=== PATIENT | female | born 1980 | race Caucasian/White ===

== ENCOUNTER 2017-11-22 13:53 | Emergency (ER) | payer MEDICAID, SELFPAY ==
[2017-11-22 14:00] VITALS: BP 152/88; PULSE 98; RESP 20; TEMP 37.1; O2SAT 100; BMI 34.9
[2017-11-22 14:10] LABS: Apearance,Urine Clear (Clear); Color,Urine Yellow (Yellow); Glucose,Urine (UA) Negative (Negative); PH,Urine 5.5 (5.0-8.5); Protein,Urine Negative (Negative)
[2017-11-22 14:11] LABS: Bilirubin,Urine Negative (Negative); Blood, Urine Negative (Negative); Ketones,Urine Negative (Negative); UTC Leukocyte Esterase,Urine 3+ (Negative); UTC Nitrate,Urine Negative (Negative); Urobilinogen,Urine 0.2 EU/dl (0.2)
--- NOTE | 2017-11-22 14:31 | PC.NURSE ---
Spoke to patient regarding symptoms. Started w/ Hysterectomy on 10/24/17 at [place] due to heavy bleeding x 2 months. Since surgery, decreased urination. Urinating only 1-2x/day despite constantly feeling the urge to urinate and even then, urinating very little. Discussed this at FU appt 3 weeks ago. U/A normal per patient at that time and reports she was told to increase fluids, which she has. urine now clear w/o odor. However, 2 weeks ago started having abdominal pain and thick brown vaginal discharge with odor so much so I have to wear a pad . Constant RLQ achy pain around 6/10 w/ sharp stabbing pain RLQ with urination rating it a 10/10. Denies typical dysuria associated w/ UTI. This is severe and more in my abdomen when I pee . Reports straining now to urinate. Vagina itchy and red and is no sure if that is related to discharge or a rash. Boyfriend's ex girlfriend dx chlamydia 2 days ago and worried that could be the cause. No improvement despite increasing fluids and taking tylenol. Called OB. Out of office until 12/01. Denies fever, nausea, vomiting. Discussed [facility] postop guidelines. Pt willing to transfer to ER. Report given to Dr. Sexton, ER . No bed available but working on two discharges. Will notify me when bed becomes available.
--- NOTE | 2017-11-22 14:43 | CT_ITS ---
CT abdomen pelvis w con CLINICAL INDICATION: Abdominal pain with difficulty urinating ITS.REASON: ABD PAIN, S/P HYSTERECTOMY 10-24-17 ORDERING PHYSICIAN: Michelet Sexton MD PATIENT AGE: 37 years COMPARISON: 08/20/2017 TECHNIQUE: Axial images obtained with sagittal and coronal reformats. PROCEDURE: Oral Contrast: None IV Contrast: 75 mL [id number]. FINDINGS: No acute finding in the lung bases. The liver, spleen, adrenal glands, and pancreas are unremarkable. A calcific density is present along the posterior aspect of the body the pancreas nonspecific. Small hyperdensity is present in the body of the gallbladder posteriorly suggesting a small stone. May be confirmed with ultrasound if clinically warranted. Has been prior gastric bypass surgery. No intestinal obstruction or free air. No obstructing renal or ureteral calculi or hydronephrosis. There are few small lymph nodes in the retroperitoneum nonspecific and unchanged. Prior appendectomy and interval hysterectomy. There is some minimal stranding of the fat in the uterine bed consistent with postsurgical changes. No abscess, hematoma, or seroma evident No acute bony anomalies. No abdominal wall hematoma or hernia. IMPRESSION: 1. Possible cholelithiasis. 2. Interval hysterectomy with minimal postsurgical changes in the pelvis with no acute finding Lower thorax: No acute finding ABDOMEN: Liver: No masses or biliary dilatation. Gallbladder: Nondistended. No radio opaque stones. Pancreas: No masses or peripancreatic fluid collections. Spleen: Unremarkable. Adrenals: Unremarkable Kidneys/ureters: No masses. No renal calculi. No hydronephrosis. No perinephric fluid collections. No ureteral dilatation or obvious ureteral calculi. Stomach bowel: Nondistended. No obvious mass or thickening. Appendix: No evidence of appendicitis. PELVIS: Reproductive: Unremarkable Bladder: Nondistended. No obvious stones or masses. ABDOMEN & PELVIS: Peritoneum: No abnormal fluid collections. No obvious inflammatory changes. No free air. Lymph nodes: No enlarged lymph nodes apparent. Vasculature: No evidence of abdominal aortic aneurysm. No retroperitoneal hemorrhage evident. Bones: No acute fracture IMPRESSION: Negative, no acute intra-abdominal or pelvic pathology apparent
[2017-11-22 14:59] VITALS: BP 152/88; PULSE 98; RESP 20; TEMP 37.1; O2SAT 100; BMI 349418.6
[2017-11-22 15:29] LABS: Basophils % 0.4 % (0.1-2.0); Eosinophils # 0.4 K/mm3 (0.0-0.4); Eosinophils % 7.3 % (0.1-12.0); Hematocrit 36.2 % (37.0-47.0); Hemoglobin 11.5 g/dL (12.2-16.2); Lymphocytes # 1.5 K/mm3 (0.7-4.5); Lymphocytes % 25.6 K/mm3 (10-50); Mean Corpuscular HGB Conc 31.8 g/dL (31.8-35.4); Mean Corpuscular Hemoglobin 25.8 pg (27.0-31.2); Mean Corpuscular Volume 81.2 fl (81-99); Mean Platelet Volume 8.5 fl (7.4-10.4); Monocytes # 0.4 K/mm3 (0.1-1.0); Monocytes % 7.3 % (1.7-9.3); Neutrophils # 3.5 K/mm3 (1.8-7.8); Neutrophils % 59.4 % (37.0-80.0); Platelet Count 294 K/mm3 (142-424); Red Blood Count 4.47 M/mm3 (4.20-5.40); Red Cell Distribution Width 15.6 % (11.5-17.5); White Blood Count 5.9 K/mm3 (4.8-10.8)
[2017-11-22 15:44] LABS: Alanine Aminotransferase 24 U/L (12-78); Albumin Level 4.2 gm/dL (3.4-5.0); Albumin/Globulin Ratio 1.2 (1.1-1.8); Alkaline Phosphatase 82 U/L (46-116); Amylase 37 U/L (25-125); Anion Gap 10.6 mEq/L (5-15); Aspartate Amino Transferase 12 U/L (15-37); Bilirubin,Total 0.3 mg/dL (0.2-1.0); Blood Urea Nitrogen 9 mg/dL (7-18); Calcium 8.8 mg/dL (8.5-10.1); Carbon Dioxide 27 mmol/L (21.0-32.0); Chloride 107 mmol/L (98-107); Creatinine Clearance Estimated 160 mL/min (0-300); Creatinine,Serum 0.74 mg/dL (0.55-1.02); Estimated Glomerular Filt Rate 89 ml/min (>60); GFR (African American) 108 ML/MIN (>60); Globulin 3.4 gm/dl (1.3-3.2); Glucose 80 mg/dL (74-106); Lipase 117 u/L (73-393); Potassium 3.6 mmoL/L (3.5-5.1); Sodium 141 mmol/L (136-145); Total Protein,Serum 7.6 gm/dL (6.4-8.2)
--- NOTE | 2017-11-22 17:49 | HMH.EDABDPAI ---
ED Disposition Clinical Impression: Bladder spasms Disposition: Home, Self-Care Condition on Discharge: Good Instructions: DI for Acute Abdomen Additional Instructions: Please find attached a copy of the CT scan obtained today, drink plenty of fluids, follow-up with your pharmacy sales representative in [place] within the next 1-2 weeks. Referrals: Michael Campo MD [Primary Care Provider] - Time of Disposition: 17:50 - Critical Care Critical Care Time: No Attestation: On 11/22/17, the high probability of a clinically significant, sudden or life threatening deterioration of the following system(s) required my full and direct attention, intervention and personal management. The time I documented below is in addition to time spent performing reported procedures but includes the following listed in this critical care notation. Medical Decision Making - Medical Records Medical records reviewed: Yes: I reviewed the patient's medical records. Vital Signs: 11/22/17 14:00 11/22/17 14:59 11/22/17 18:07 Temperature 98.8 F 98.8 F 98.4 F Temperature Source Temporal Artery Scan Oral Pulse Rate 88 Pulse Rate [Brachial] 98 H 98 H Respiratory Rate 20 20 18 Blood Pressure 124/86 Blood Pressure [Left Arm] 152/88 152/88 Blood Pressure Mean [Left Arm] 109 109 Blood Pressure Source [Left Arm] Automatic Cuff Automatic Cuff Blood Pressure Position [Left Arm] Sitting Sitting 02 Sat by Pulse Oximetry 100 100 Oxygen Delivery Method Room Air Room Air - Lab Data Lab results reviewed: Yes: I reviewed the patient's lab results. Lab Results 11/22/17 14:09: Urine Color Yellow, Urine Appearance Clear, Urine pH 5.5, Ur Specific [place] 1.010, Urine Protein Negative, Urine Glucose (UA) Negative, Urine Ketones Negative, Urine Blood Negative, Urine Nitrate Negative, Urine Bilirubin Negative, Urine Urobilinogen 0.2, Ur Leukocyte Esterase 3+ A 11/22/17 15:05: WBC 5.9, RBC 4.47, Hgb 11.5 L, Hct 36.2 L, MCV 81.2, MCH 25.8 L, MCHC 31.8, RDW 15.6, Plt Count 294, MPV 8.5, Neut % (Auto) 59.4, Lymph % (Auto) 25.6, [place] % (Auto) 7.3, Eos % (Auto) 7.3, Baso % (Auto) 0.4, Neut # (Auto) 3.5, Lymph # (Auto) 1.5, [place] # (Auto) 0.4, Eos # (Auto) 0.4, Baso # (Auto) 0.0 11/22/17 15:05: Sodium 141, Potassium 3.6, Chloride 107, Carbon Dioxide 27, Anion Gap 10.6, BUN 9, Creatinine 0.74, Estimated Creat Clear 160, Estimated GFR 89, Est GFR ( Amer) 108, Glucose 80, Calcium 8.8, Total Bilirubin 0.3, AST 12 L, ALT 24, Alkaline Phosphatase 82, Total Protein 7.6, Albumin 4.2, Globulin 3.4 H, Albumin/Globulin Ratio 1.2, Amylase 37, Lipase 117 Result diagrams: 11/22/17 15:05 11/22/17 15:05 Orders (Tests/Meds): ED MEDICATIONS Discontinued Medications Generic Name Dose Route Start Last Admin Trade Name Freq PRN Reason Stop Dose Admin Lactated Ringer's 1,000 mls @ 999 mls/hr 11/22/17 14:30 Lactated Ringer's 1000 Ml Bag IV 11/22/17 15:30 .Q1H1M ERINN Iopamidol 75 ml 11/22/17 15:33 11/22/17 15:33 [id number]; 75ml Vial IV 11/22/17 15:34 75 ml ONCE ONE Administration Sodium Chloride 10 ml 11/22/17 15:33 11/22/17 15:33 Rad-Saline Flush 10ml Syringe IV 11/22/17 15:34 10 ml ONCE ONE Administration ORDERS Category Date Time Status CT abdomen/pelvis request [CT Request abd/pelvis] Exams 11/22/17 14:28 Ordered Routine - CT Data CT Scan: Abdomen, Pelvis Time Received: 17:[address] Reviewed: Yes: I have reviewed the patient's CT results Findings Narrative: s/p hystercetomy, + cholelithiasis - Amari Inquiry Pt receiving controlled substance: No - Reevaluation(s) Time: 17:45 Reevaluation #1: Patient is in no acute distress, advised her to increase her fluid intake, follow up with [employer] within a few days. She was able to void while in the ER, without any problems. Abdominal Pain HPI - General Chief Complaint: Abdominal Pain Stated Complaint: CANNOT URINATE Time Seen by Provider:
[2017-11-22 18:07] VITALS: BP 124/86; PULSE 88; RESP 18; TEMP 36.9; O2SAT 97
== END 2017-11-22 18:09 | disposition home or self-care (01) ==
LOC: UTC 14:49 → ER 14:50
PROVIDERS: Nurse Practitioner Family; Emergency Provider Emergency Medicine; Family Provider Internal Medicine Adolescent Medicine; PCP Internal Medicine Adolescent Medicine
DX: N32.89 Other specified disorders of bladder (principal); Z90.710 Acquired absence of both cervix and uterus
CPT/HCPCS: 74177; 80053; 81003; 82150; 83690; 85025; 87086; 99284; Q9967

== ENCOUNTER 2017-12-26 15:59 | Emergency (ER) | payer MEDICAID, SELFPAY ==
[2017-12-26 16:12] VITALS: BP 110/64; PULSE 97; RESP 20; TEMP 36.9; O2SAT 99; BMI 34.9
--- NOTE | 2017-12-26 16:28 | PC.NURSE ---
Discussed HPI. Severe headache behind left eye/left temporal. Denies hx of headaches. I have never had a headache like this before . Currently 05/15. throbbing. Started yesterday morning. not improved with tylenol excedrin or tylenol sinus. Worse today. Took a nap earlier and woke up in more severe pain. That is why I am here. i can't take this pain any longer . Photosensitive without nausea. Trouble seeing w/ left eye. Visual acuity here in clinic 20/20 on right and bilateral eyes but 20/30 left eye. Denies weakness of confusion. No recent cold/flu/allergy symptoms. Denies fever, aches, chills. Reviewed possible differentials and [facility] guidelines with patient. patient and spouse agreeable to transfer to ER. Report called to Carlota, house painter helper helping in ER. Room 7 available.
[2017-12-26 16:38] VITALS: BP 110/64; PULSE 96; RESP 16; TEMP 36.9; O2SAT 99; BMI 33.9
--- NOTE | 2017-12-26 17:13 | HMH.EDGENADL ---
ED Disposition Clinical Impression: Sinusitis Qualifiers: Sinusitis location: unspecified location Chronicity: acute Recurrence: not specified as recurrent Qualified Code(s): J01.90 - Acute sinusitis, unspecified Headache Qualifiers: Headache type: unspecified Headache chronicity pattern: acute headache Intractability: intractable Qualified Code(s): R51 - Headache Disposition: Home, Self-Care Condition on Discharge: Good Instructions: DI for Sinus Headache, DI for Sinusitis, DI for Headache Additional Instructions: Additional instructions for HEADACHE: See your physician as soon as possible for further evaluation. Return immediately if worsening headache, vomiting, problems with vision or speech, fever, numbness or weakness of the extremities, neck pain or stiffness. Additional instructions for CONTROLLED SUBSTANCES: You have been prescribed a medication that is a controlled substance. Controlled substances include pain medications known as opiates and sedative nerve medications known as benzodiazepines. Some common opiates include: Codeine (such as Tylenol #3) Hydrocodone (Vicodin, Lortab, Lorcet, Kennedy) Oxycodone (Percocet, Percodan, Oxycodone, Oxy IR) Some common benzodiazepines include: Diazepam (Valium) Lorazepam (Ativan) Alprazolam (Xanax) Clonazepam (Klonopin) Oxazepam (Serax) All of these controlled substances are highly addictive and frequently abused. Misuse can and frequently does lead to addiction as well as overdose and . Medication should be stored in a locked cabinet or other secure storage unit. Do not store the medication in a motor vehicle. Short term supplies, 3 days or less, are prescribed because of the highly addictive nature of the medication. Any of the controlled substance medication NOT taken should be disposed of properly and NOT SAVED. The recommended method of disposing of unused medications is: Place the medicines in a sealable plastic bag. If the medicine is a solid, crush it or add water to dissolve it. Add something undesirable (cat litter, coffee grounds, etc.) Dispose of sealed bag in household trash Do not flush or pour unused medicines down a sink or drain. Controlled substances should not be shared, given away or sold. Because of the addictive nature and frequent abuse, these medications are sometimes stolen. These medications should be kept in a safe place where they cannot be stolen. Do not keep them in your car or purse. Lost or stolen prescriptions for controlled substances WILL NOT BE REFILLED in this emergency department, regardless of whether a police report was filed. Prescriptions: Butalbit/Acetamin/Caff/Codeine [Fioricet w/Codeine Capsule] 1 each PO Q4HP PRN #10 cap PRN Reason: Headache Azithromycin [Zithromax 250mg tab] 250 mg PO DAILY #4 tab Referrals: Az Mills MD [Primary Care Provider] - - Critical Care Critical Care Time: No Attestation: On 12/26/17, the high probability of a clinically significant, sudden or life threatening deterioration of the following system(s) required my full and direct attention, intervention and personal management. The time I documented below is in addition to time spent performing reported procedures but includes the following listed in this critical care notation. Medical Decision Making Vital Signs: 12/26/17 16:12 12/26/17 16:38 Temperature 98.4 F 98.4 F Temperature Source Temporal Artery Scan Oral Pulse Rate [Right Brachial] 97 H 96 H Respiratory Rate 20 16 Blood Pressure [Left Arm] 110/64 Blood Pressure [Right Arm] 110/64 Blood Pressure Mean [Left Arm] 79 Blood Pressure Mean [Right Arm] 79 Blood Pressure Source [Left Arm] Automatic Cuff Blood Pressure Source [Right Arm] Automatic Cuff Blood Pressure Position [Right Arm] Sitting 02 Sat by Pulse Oximetry 99 99 Oxygen Delivery Method Room Air Room Air Orders (Tests/Meds): ED MEDICATIONS Discontinued Medications Ge
--- NOTE | 2017-12-26 17:21 | CT_ITS ---
CT head/brain wo con Ordering Physician: Vicente Cruz MD Patient Age: 37 years: Female HISTORY: ITS.REASON: headache, fell and hit head monday Headache 3 days hit on head with shelf last week TECHNIQUE: Routine axial CT head without contrast. Brain and bone windows performed and submitted to PACS. COMPARISON :None FINDINGS Brain within normal limits with no acute findings. No hemorrhage. No mass. No subdural collection. The ventricles appear normal. Basal cisterns are clear unremarkable. The hayden and white matter interface and patterns satisfactory. The posterior fossa unremarkable. CT bone Windows do reveal moderate mucosal thickening most evident at the inferior sphenoid sinus with mild areas of mucosal thickening and partial opacification of ethmoid air cells on left. Right ethmoid air cells clear frontal sinuses clear. The maxillary sinuses and inferior ethmoid air cells are not included. Maxillary sinuses appear clear on the reconciler view. Mastoid air cells are well-developed and clear. Middle ear unremarkable. Skull intact.. .====== IMPRESSION: ======== 1. No acute intracranial findings Brain within normal limits. 2. Incidental note Moderate mucosal thickening inferior left sphenoid sinus. Mild mucosal thickening left ethmoid air cells.. Likely mild chronic changes. No air-fluid levels
[2017-12-26 20:33] VITALS: BP 124/69; PULSE 81; RESP 15; TEMP 37.2; O2SAT 97
== END 2017-12-26 20:34 | disposition home or self-care (01) ==
LOC: UTC 16:05 → ER 16:37
PROVIDERS: Emergency Provider Emergency Medicine; Family Provider Internal Medicine Adolescent Medicine; PCP Emergency Medicine
DX: J01.90 Acute sinusitis, unspecified (principal); Z88.0 Allergy status to penicillin; Z88.1 Allergy status to other antibiotic agents
CPT/HCPCS: 70450; 96365; 96367; 96374; 96375; 99283; J0456

== ENCOUNTER 2018-11-07 16:04 | Observation (INO) ==
[2018-11-07 17:15] LABS: Albumin Level 3.7 gm/dL (3.4-5.0); Albumin/Globulin Ratio 1.1 (1.1-1.8); Anion Gap 13.6 mEq/L (5-15); Bilirubin,Total 0.6 mg/dL (0.2-1.0); Calcium 8.6 mg/dL (8.5-10.1); Globulin 3.3 gm/dl (1.3-3.2); Potassium 3.6 mmoL/L (3.5-5.1)
[2018-11-07 17:19] LABS: Basophils % 0.4 % (0.1-2.0); Eosinophils # 0.3 K/mm3 (0.0-0.4); Eosinophils % 4.1 % (0.1-12.0); Hematocrit 33.9 % (37.0-47.0); Hemoglobin 10.4 g/dL (12.2-16.2); Lymphocytes % 33.5 % (10-50); Mean Corpuscular HGB Conc 30.8 g/dL (31.8-35.4); Mean Corpuscular Hemoglobin 23.8 pg (27.0-31.2); Mean Corpuscular Volume 77.3 fl (81-99); Mean Platelet Volume 7.5 fl (7.4-10.4); Monocytes # 0.4 K/mm3 (0.1-1.0); Monocytes % 6.1 % (1.7-9.3); Neutrophils # 3.4 K/mm3 (1.8-7.8); Neutrophils % 55.9 % (37.0-80.0); Platelet Count 288 K/mm3 (142-424); Red Blood Count 4.38 M/mm3 (4.20-5.40); Red Cell Distribution Width 15.3 % (11.5-17.5); White Blood Count 6.1 K/mm3 (4.8-10.8)
--- NOTE | 2018-11-07 18:56 | Emergency Department Note ---
ED Disposition Clinical Impression: Acute gastroenteritis, Dehydration Disposition: Still a Patient Condition on Discharge: Fair Referrals: Az Mills MD [Primary Care Provider] - - Critical Care Critical Care Time: No Attestation: On 11/07/18, the high probability of a clinically significant, sudden or life threatening deterioration of the following system(s) required my full and direct attention, intervention and personal management. The time I documented below is in addition to time spent performing reported procedures but includes the following listed in this critical care notation. Medical Decision Making - Amari Inquiry Pt receiving controlled substance: No Vital Signs: 11/07/18 16:23 11/07/18 16:48 11/07/18 18:04 Temperature 98.2 F 98.4 F Temperature Source Oral Oral Pulse Rate [Left Radial] 99 H 94 H 64 Respiratory Rate 18 14 18 Blood Pressure [Right Arm] 121/77 128/82 120/78 Blood Pressure Mean [Right Arm] 91 97 92 Blood Pressure Source [Right Arm] Automatic Cuff Automatic Cuff Blood Pressure Position [Right Arm] Sitting Sitting Sitting 02 Sat by Pulse Oximetry 100 94 L 100 Oxygen Delivery Method Room Air Room Air Room Air - Lab Data Lab Results 11/07/18 16:50: WBC 6.1, RBC 4.38, Hgb 10.4 L, Hct 33.9 L, MCV 77.3 L, MCH 23.8 L, MCHC 30.8 L, RDW 15.3, Plt Count 288, MPV 7.5, Neut % (Auto) 55.9, Lymph % (Auto) 33.5, [place] % (Auto) 6.1, Eos % (Auto) 4.1, Baso % (Auto) 0.4, Neut # (Auto) 3.4, Lymph # (Auto) 2.0, [place] # (Auto) 0.4, Eos # (Auto) 0.3, Baso # (Auto) 0.0 11/07/18 16:50: Sodium 142, Potassium 3.6, Chloride 106, Carbon Dioxide 26, Anion Gap 13.6, BUN 7, Creatinine 0.67, Estimated Creat Clear 175, Estimated GFR 100, Est GFR ( Amer) 121, Glucose 89, Calcium 8.6, Total Bilirubin 0.6, AST 12 L, ALT 20, Alkaline Phosphatase 80, Total Protein 7.0, Albumin 3.7, Globulin 3.3 H, Albumin/Globulin Ratio 1.1 Result diagrams: 11/07/18 16:50 11/07/18 16:50 Orders (Tests/Meds): ED MEDICATIONS Generic Name Dose Route Start Last Admin Trade Name Freq PRN Reason Stop Dose Admin Sodium Chloride 1,000 mls @ 999 mls/hr 11/07/18 17:00 11/07/18 17:20 Sod Chlor 0.9% 1000ml Bag IV 11/07/18 18:00 999 mls/hr .Q1H1M ERINN Administration Discontinued Medications Generic Name Dose Route Start Last Admin Trade Name Freq PRN Reason Stop Dose Admin Ondansetron HCl 4 mg 11/07/18 16:56 11/07/18 17:20 Zofran 4mg/2ml Vial IV 11/07/18 16:57 4 mg ONCE ONE Administration ORDERS Category Date Time Status Hepatitis Panel (4) Routine Lab 11/07/18 18:55 Ordered Medical Decision Narrative: Patient states she does not feel any better after fluids and medication except nausea slightly better. States she does not feel well enough to go home. I will admit for further hydration and symptomatic treatment. Diarrhea profile will be ordered. No findings to suggest hepatitis at this time. General Adult HPI - General Chief complaint: Nausea/Vomiting/Diarrhea Stated complaint: Poss Hep A Time Seen by Provider: 11/07/18 18:54 Mode of Arrival: Ambulatory Limitations: No Limitations Description of Symptoms (Recalled from ER Triage Doc. by RN): PT REPORTS SHE HAS BEEN "SICK" FOR 1 WEEK. HAS HAD N/V/D FOR THE LAST 72 HOURS. BODY ACHES. REPORTS BOYFRIEND WAS DX WITH HEPATITIS MONDAY. WANTS TO BE CHECKED FOR HEP A. - History of Present Illness HPI narrative: States she feels like she is going to because she has been so sick for 1 week. Her whole body hurts. She has profuse vomiting and diarrhea. Denies fever. Generalized abdominal cramping. She is concerned because her boyfriend was here on Monday and diagnosed with acute hepatitis, likely hepatitis A. He is still awaiting hepatitis panel results. No known exposures otherwise. - Related Data Previous Rx's Medication Instructions Recorded Brompheniramine/Pseudoephed/Dm 10 ml PO QID PRN #240 ml 09/13/18 [Bromfed DM Cough Syrup 5mL] Allergies Allergy/AdvReac Type Severity Reaction Status Date / Time cefaclor [CEFACLOR] Allergy Unknown Verified 11/22/17 13:58 Penicillins [PENICILLINS] Allergy Unknown Verified 11/22/17 13:57 Cephalosporins Allergy Verified 12/26/17 16:18 [facility] History - Hepatitis A Screen Drug use history?: No High risk sexual behaviors?: No History of sexually transmitted infection?: No Currently employed?: No Childcare worker?: No Do you have indoor plumbing?: Yes Do you have electricity?: Yes Attestation statement:: This patient has been screened for Hepatitis A risk factors. I have reviewed the patient's past medical history: Yes Medical History: Denies:: Cancer, Diabetes Mellitus Type 1, Diabetes Mellitus Type 2, Hypertension, MRSA Laterality Cases: Bilateral: Tonsillectomy Other Surgeries: Yes: Hysterectomy-Total Amputation: No Fractures: No - Social History Smoking Status: Former smoker Alcohol Intake: never Substance Use Type: denies use - Psychiatric History Expresses thoughts of harming self/others: None Suicide Plan Description: No Plan ROS Obtained: Yes All systems reviewed & no additional complaints - Constitutional Constitutional: Reports body ache, Reports chills, Reports fatigue, Reports fever(s) - Gastrointestinal Gastrointestingal: Reports: abdominal pain, diarrhea, nausea, vomiting Physical Exam - General General appearance: alert, in no apparent distress - Head Head exam: atraumatic, normocephalic - Eye Eye exam: Present: normal appearance, PERRL, EOMI - ENT ENT exam: Present: mucous membranes dry, other (Lips dry) - Neck Neck exam: Present: normal inspection, trachea midline - Chest Chest inspection: Present: normal inspection, symmetric chest wall rise - Respiratory Respiratory exam: Present: normal lung sounds bilaterally. Absent: respiratory distress - Cardiovascular Cardiovascular exam: Present: regular rate, normal rhythm, normal heart sounds - Abdominal Exam Abdominal exam: Present: soft, tenderness. Absent: distention, guarding, rebound, rigidity Abdominal tenderness: Present: diffuse, mild - Extremities Exam Extremities exam: Present: normal inspection, full ROM - Neurological Exam Neurological exam: Present: alert, oriented X3 - Psychiatric Psychiatric exam: Present: normal affect, normal mood - Skin Skin exam: Present: warm, dry
--- NOTE | 2018-11-08 08:09 | Pharmacy Consult Notes ---
[facility] Pharmacy VTE Monitoring - Patient Demographics Admission date: 11/07/18 Report Date: 11/08/18 Time: 08:09 Allergies/Adverse Reactions: Patient Allergies cefaclor [CEFACLOR] Allergy (Unknown, Verified 11/22/17 13:58) Penicillins [PENICILLINS] Allergy (Unknown, Verified 11/22/17 13:57) Cephalosporins Allergy (Verified 12/26/17 16:18) Height: 1.65 m Weight: 100.329 kg Patient Problems: Current Active Problems Acute gastroenteritis (Acute) Dehydration (Acute) - VTE Risk Labs: VTE Related Lab Results Hgb 10.4 g/dL (12.2-16.2) L 11/07/18 16:50 Hct 33.9 % (37.0-47.0) L 11/07/18 16:50 Plt Count 288 K/mm3 (142-424) 11/07/18 16:50 BUN 7 mg/dL (7-18) 11/07/18 16:50 Creatinine 0.67 mg/dL (0.55-1.02) 11/07/18 16:50 Estimated Creat Clear 175 mL/min (50-200) 11/07/18 16:50 Was VTE Risk Assessment Performed: Yes VTE Score: 4 VTE Risk Level: Low Risk - Prophylaxis VTE Prophylaxis Ordered?: Yes Types of VTE Prophylaxis: TEDS Knee High Location of Applied Device: Bilateral Lower Extremeties - VTE Diagnosis Confirmed Treatment or plan recommended: Continue Current Treatment
[2018-11-08 09:30] LABS: Eosinophils # 0.2 K/mm3 (0.0-0.4); Monocytes # 0.3 K/mm3 (0.1-1.0); Neutrophils # 2.3 K/mm3 (1.8-7.8); Neutrophils % 52.6 % (37.0-80.0)
[2018-11-08 09:35] LABS: Basophils % 0.4 % (0.1-2.0); Eosinophils % 5.1 % (0.1-12.0); Hematocrit 29.6 % (37.0-47.0); Lymphocytes # 1.5 K/mm3 (0.7-4.5); Lymphocytes % 35.6 % (10-50); Mean Corpuscular HGB Conc 30.7 g/dL (31.8-35.4); Mean Corpuscular Volume 78.3 fl (81-99); Mean Platelet Volume 9.1 fl (7.4-10.4); Monocytes % 6.2 % (1.7-9.3); Platelet Count 213 K/mm3 (142-424); Red Blood Count 3.78 M/mm3 (4.20-5.40); Red Cell Distribution Width 15.3 % (11.5-17.5); White Blood Count 4.3 K/mm3 (4.8-10.8)
[2018-11-08 09:37] LABS: Hemoglobin 9.1 g/dL (12.2-16.2)
[2018-11-08 09:53] LABS: Albumin Level 2.9 gm/dL (3.4-5.0); Anion Gap 11.5 mEq/L (5-15); Bilirubin,Total 0.4 mg/dL (0.2-1.0); Calcium 7.8 mg/dL (8.5-10.1); Globulin 2.9 gm/dl (1.3-3.2); Potassium 3.5 mmoL/L (3.5-5.1); Total Protein,Serum 5.8 gm/dL (6.4-8.2)
--- NOTE | 2018-11-08 12:21 | H&P/Discharge Summary ---
General - General Admission date:: 11/07/18 Discharge date: 11/08/18 *Admission Date: 11/07/18 *Chief complaint: n/v/d *History of present illness: 38 yr old female presents to ed with c/o n/v/d x 1 week. Denies fever. Generalized abdominal cramping. Pt sttes no stool since admit. She is concerned because her boyfriend was here on Monday and diagnosed with acute hepatitis, likely hepatitis A. He is still awaiting hepatitis panel results. No known exposures otherwise.Pt admitted for iv fluids and symptom mangement. [facility] History I have reviewed the patient's past medical history: Yes Medical History: Reports:: MRSA Denies:: Cancer, Diabetes Mellitus Type 1, Diabetes Mellitus Type 2, Hypertension Laterality Cases: Bilateral: Tonsillectomy Other Surgeries: Yes: Appendectomy, Bariatric Surgery, Hysterectomy-Total Amputation: No Fractures: Yes (Tibia) - *Social History Educational Level: Completed GED/General Educational Development Smoking Status: Former smoker Alcohol Intake: current Alcohol Intake Frequency:: holidays/special occasions only Substance Use Type: denies use Occupational Status: employed Housing: house Household Members: significant other - Psychiatric History Expresses thoughts of harming self/others: None Suicide Plan Description: No Plan *Family Hx:: Coronary Artery Disease, Diabetes Review of Systems - Review of Systems Review of systems:: pertinent systems reviewed and negative unless documented below - Constitutional Reports body ache(s), Denies fever(s) - Eyes Denies change in vision - ENT Denies change in voice - *Cardiovascular Denies shortness of breath - *Respiratory Denies chest congestion - *Gastrointestinal Reports cramping, Reports loose stools, Reports nausea, Reports vomiting - *Genitourinary Denies abnormal periods - *Musculoskeletal Denies decreased muscle mass - Integumentary/Breasts Denies rash - *Neurologic Denies abnormal movements - Psychiatric Denies anxiety - Endocrine Denies flushing - Hematologic/Lymphatic Denies enlarged lymph nodes - Allergic/Immunologic Denies itchy eyes Exam Vital signs and Labs for Last 24 Hours: Temp Pulse Resp BP Pulse Ox 98.9 F 80 16 121/78 99 11/08/18 08:00 11/08/18 08:00 11/08/18 08:00 11/08/18 08:00 11/08/18 08:00 Laboratory Results - last 24 hr 11/07/18 16:50: WBC 6.1, RBC 4.38, Hgb 10.4 L, Hct 33.9 L, MCV 77.3 L, MCH 23.8 L, MCHC 30.8 L, RDW 15.3, Plt Count 288, MPV 7.5, Neut % (Auto) 55.9, Lymph % (Auto) 33.5, Harris % (Auto) 6.1, Eos % (Auto) 4.1, Baso % (Auto) 0.4, Neut # (Auto) 3.4, Lymph # (Auto) 2.0, Harris # (Auto) 0.4, Eos # (Auto) 0.3, Baso # (Auto) 0.0 11/07/18 16:50: Sodium 142, Potassium 3.6, Chloride 106, Carbon Dioxide 26, Anion Gap 13.6, BUN 7, Creatinine 0.67, Estimated Creat Clear 175, Estimated GFR 100, Est GFR ( Amer) 121, Glucose 89, Calcium 8.6, Total Bilirubin 0.6, AST 12 L, ALT 20, Alkaline Phosphatase 80, Total Protein 7.0, Albumin 3.7, Globulin 3.3 H, Albumin/Globulin Ratio 1.1 11/08/18 09:23: WBC 4.3 L D, RBC 3.78 L, Hgb 9.1 L D, Hct 29.6 L, MCV 78.3 L, MCH 24.0 L, MCHC 30.7 L, RDW 15.3, Plt Count 213 D, MPV 9.1, Neut % (Auto) 52.6, Lymph % (Auto) 35.6, Harris % (Auto) 6.2, Eos % (Auto) 5.1, Baso % (Auto) 0.4, Neut # (Auto) 2.3, Lymph # (Auto) 1.5, Harris # (Auto) 0.3, Eos # (Auto) 0.2, Baso # (Auto) 0.0 11/08/18 09:23: Sodium 142, Potassium 3.5, Chloride 111 H, Carbon Dioxide 23, Anion Gap 11.5, BUN 7, Creatinine 0.66, Estimated Creat Clear 187, Estimated GFR 101, Est GFR ( Amer) 123, Glucose 104, Calcium 7.8 L, Total Bilirubin 0.4, AST 13 L, ALT 17, Alkaline Phosphatase 63, Total Protein 5.8 L, Albumin 2.9 L D, Globulin 2.9, Albumin/Globulin Ratio 1.0 L 11/08/18 09:51: Stl Aeromonas (PCR) Not detected, Stl C. cayetanensis PCR Not detected, Stool Rotavirus (PCR) Not detected, Stl Adenov F 40/41 PCR Not detected, Stool Astrovirus (PCR) Not detected, Stool Campylobacter PCR Not detected, Stl C.difficile Tox PCR Not detected, Stool Cryptosporidium PCR Not detected, Stl E.coli Shiga Tox PCR Not detected, Stool E coli O157 PCR Not detected, Stl Enterotoxigenic E PCR Not detected, Stool EPEC (PCR) Not detected, Stool EAEC (PCR) Not detected, Stl E. histolytica PCR Not detected, Stool Giardia Lamblia PCR Not detected, Stool Salmonella PCR Not detected, Stool Sapovirus (PCR) Not detected, Stl P. shigelloides PCR Not detected, Stl Shigella/EIEC PCR Not detected, St Y.enterocolitica PCR Not detected, Stool Vibrio (PCR) Not detected, Stl Vibrio cholerae PCR Not detected, Stl Norovirus GI/GII PCR Detected A I & O for Last 24 hours: Intake & Output 11/06/18 11/07/18 11/08/18 11/09/18 11:59 11:59 11:59 11:59 Intake Total 2447 / 2447 Output Total 540 / 540 Balance 1907 / 1907 Weight 221 lb 3 oz - *Routine HEENT Exam Head: Present: normocephalic Eye: Present: PERRL ENT: Present: mucous membranes moist - *Routine Neck Exam Present: supple. Absent: lymphadenopathy - *Routine Respiratory Exam Present: CTA bilaterally - *Routine Cardiovascular Exam Present: RRR - *Routine Abdominal Exam Present: soft, normoactive bowel sounds. Absent: tenderness, distended, rebound, firm - *Routine Extremities Exam Absent: cyanosis, clubbing, edema - *Routine Skin Exam Present: warm. Absent: rash - *Routine Neurological Exam Present: alert, oriented X3 Hospital Course Hospital Course: diarrehea panel pos for norovirus. dc home waiting hepatitis panel results increase fluids, zofran for nausea follow up in office next week Results Labs on day of discharge: Labs from last 24 hours 11/08/18 11/08/18 11/08/18 09:51 09:23 09:23 WBC 4.3 L D RBC 3.78 L Hgb 9.1 L D Hct 29.6 L MCV 78.3 L MCH 24.0 L MCHC 30.7 L RDW 15.3 Plt Count 213 D MPV 9.1 Neut % (Auto) 52.6 Lymph % (Auto) 35.6 Harris % (Auto) 6.2 Eos % (Auto) 5.1 Baso % (Auto) 0.4 Neut # (Auto) 2.3 Lymph # (Auto) 1.5 Harris # (Auto) 0.3 Eos # (Auto) 0.2 Baso # (Auto) 0.0 Sodium 142 Potassium 3.5 Chloride 111 H Carbon Dioxide 23 Anion Gap 11.5 BUN 7 Creatinine 0.66 Estimated Creat Clear 187 Estimated GFR 101 Est GFR ( Amer) 123 Glucose 104 Calcium 7.8 L Total Bilirubin 0.4 AST 13 L ALT 17 Alkaline Phosphatase 63 Total Protein 5.8 L Albumin 2.9 L D Globulin 2.9 Albumin/Globulin Ratio 1.0 L Stl Aeromonas (PCR) Not detected Stl C. cayetanensis PCR Not detected Stool Rotavirus (PCR) Not detected Stl Adenov F 40/41 PCR Not detected Stool Astrovirus (PCR) Not detected Stool Campylobacter PCR Not detected Stl C.difficile Tox PCR Not detected Stool Cryptosporidium PCR Not detected Stl E.coli Shiga Tox PCR Not detected Stool E coli O157 PCR Not detected Stl Enterotoxigenic E PCR Not detected Stool EPEC (PCR) Not detected Stool EAEC (PCR) Not detected Stl E. histolytica PCR Not detected Stool Giardia Lamblia PCR Not detected Stool Salmonella PCR Not detected Stool Sapovirus (PCR) Not detected Stl P. shigelloides PCR Not detected Stl Shigella/EIEC PCR Not detected St Y.enterocolitica PCR Not detected Stool Vibrio (PCR) Not detected Stl Vibrio cholerae PCR Not detected Stl Norovirus GI/GII PCR Detected A 11/07/18 11/07/18 16:50 16:50 WBC 6.1 RBC 4.38 Hgb 10.4 L Hct 33.9 L MCV 77.3 L MCH 23.8 L MCHC 30.8 L RDW 15.3 Plt Count 288 MPV 7.5 Neut % (Auto) 55.9 Lymph % (Auto) 33.5 Harris % (Auto) 6.1 Eos % (Auto) 4.1 Baso % (Auto) 0.4 Neut # (Auto) 3.4 Lymph # (Auto) 2.0 Harris # (Auto) 0.4 Eos # (Auto) 0.3 Baso # (Auto) 0.0 Sodium 142 Potassium 3.6 Chloride 106 Carbon Dioxide 26 Anion Gap 13.6 BUN 7 Creatinine 0.67 Estimated Creat Clear 175 Estimated GFR 100 Est GFR ( Amer) 121 Glucose 89 Calcium 8.6 Total Bilirubin 0.6 AST 12 L ALT 20 Alkaline Phosphatase 80 Total Protein 7.0 Albumin 3.7 Globulin 3.3 H Albumin/Globulin Ratio 1.1 Stl Aeromonas (PCR) Stl C. cayetanensis PCR Stool Rotavirus (PCR) Stl Adenov F 40/41 PCR Stool Astrovirus (PCR) Stool Campylobacter PCR Stl C.difficile Tox PCR Stool Cryptosporidium PCR Stl E.coli Shiga Tox PCR Stool E coli O157 PCR Stl Enterotoxigenic E PCR Stool EPEC (PCR) Stool EAEC (PCR) Stl E. histolytica PCR Stool Giardia Lamblia PCR Stool Salmonella PCR Stool Sapovirus (PCR) Stl P. shigelloides PCR Stl Shigella/EIEC PCR St Y.enterocolitica PCR Stool Vibrio (PCR) Stl Vibrio cholerae PCR Stl Norovirus GI/GII PCR - Additional Comments discussed with miguelito, all orders per miguelito Discharge Medications - Medications for Discharge Home Medication List at Discharge: No Action No Known Home Medications Disposition Disposition: Home, Self-Care
[2018-11-09 11:15] LABS: Hepatitis B Core Antibody IgM Negative (Negative); Hepatitis B Surface Antigen Negative (Negative)
[2018-11-10 21:46] LABS: Hepatitis C Antibody <0.1 s/co ratio (0.0-0.9)
== END 2018-11-08 13:15 | disposition home or self-care (01) ==
LOC: ER 16:04 → 2ND 16:04
PROVIDERS: ADMIT Emergency Medicine; ATTEND Emergency Medicine
CPT/HCPCS: 36415; 80053; 80074; 85025; 87507; 96365; 96375; 99283; G0378; J2405

== ENCOUNTER → 2018-11-14 08:29 | Outpatient (CLI) | payer MEDICAID, SELFPAY ==
--- NOTE | 2018-11-14 08:32 | US_ITS ---
US gallbladder HISTORY: Diarrhea and vomiting after eating ITS.REASON: nausea ORDERING PHYSICIAN: Suzie Roca PATIENT AGE: 38 years Comparison: None FINDINGS: PANCREAS: Unremarkable. No obvious mass or abnormal fluid collection. No ductal dilatation LIVER: No focal liver lesions demonstrated. Homogeneous echogenicity. No intrahepatic biliary ductal dilatation evident RIGHT KIDNEY: Unremarkable. Normal size and echogenicity. No hydronephrosis GALLBLADDER: There are a few small stones present within the gallbladder. No gallbladder wall thickening, pericholecystic fluid, or biliary dilatation is evident. IMPRESSION: Cholelithiasis
== END ==
PROVIDERS: PCP Nurse Practitioner Family; Visit Provider Nurse Practitioner Family
DX: R10.11 Right upper quadrant pain (principal); R11.2 Nausea with vomiting, unspecified
CPT/HCPCS: 76705

== ENCOUNTER 2018-11-19 05:39 | Inpatient (IN) ==
--- NOTE | 2018-11-19 06:06 | Emergency Department Note ---
ED Disposition Clinical Impression: Abdominal pain Qualifiers: Abdominal location: right upper quadrant Qualified Code(s): R10.11 - Right upper quadrant pain Cholelithiasis Qualifiers: Cholelithiasis location: gallbladder Cholecystitis presence: with cholecystitis Cholecystitis acuity: acute Biliary obstruction: without biliary obstruction Qualified Code(s): K80.00 - Calculus of gallbladder with acute cholecystitis without obstruction Disposition: Admitted as Observation Condition on Discharge: Good Instructions: DI for Acute Abdomen - Critical Care Critical Care Time: No Attestation: On , the high probability of a clinically significant, sudden or life threatening deterioration of the following system(s) required my full and direct attention, intervention and personal management. The time I documented below is in addition to time spent performing reported procedures but includes the foll owing listed in this critical care notation. Medical Decision Making - Medical Records Medical records reviewed: Yes: I reviewed the patient's medical records. - Amari Inquiry Pt receiving controlled substance: No Vital Signs: 11/19/18 05:48 11/19/18 06:40 Temperature 99.9 F H Temperature Source Oral Pulse Rate [Right Brachial] 97 H 88 Respiratory Rate 20 16 Blood Pressure [Right Arm] 147/88 H 145/82 H Blood Pressure Mean [Right Arm] 107 103 Blood Pressure Source [Right Arm] Automatic Cuff Blood Pressure Position [Right Arm] Supine 02 Sat by Pulse Oximetry 98 98 Oxygen Delivery Method Room Air Room Air - Lab Data Lab results reviewed: Yes: I reviewed the patient's lab results. Lab Results 11/19/18 05:58: WBC 4.5 L, RBC 4.40, Hgb 11.2 L, Hct 33.0 L, MCV 75.0 L, MCH 25. 4 L, MCHC 33.9, RDW 14.8, Plt Count 278, MPV 7.5, Neut % (Auto) 72.1, Lymph % (Auto) 16.4, [place] % (Auto) 10.3 H, Eos % (Auto) 0.6, Baso % (Auto) 0.5, Neut # (Auto) 3.3, Lymph # (Auto) 0.8, [place] # (Auto) 0.5, Eos # (Auto) 0.0, Baso # (Auto) 0.0 11/19/18 05:58: Sodium 138, Potassium 3.3 L, Chloride 103, Carbon Dioxide 25, Anion Gap 13.3, BUN 13, Creatinine 0.78, Estimated Creat Clear 157, Estimated GFR 84, Est GFR ( Amer) 101, Glucose 111 H, Calcium 8.1 L, Total Bilirubin 0.4, AST 43 H, ALT 58, Alkaline Phosphatase 78, Total Protein 6.8, Albumin 3.5, Globulin 3.3 H, Albumin/Globulin Ratio 1.1, Amylase 41, Lipase 131 Result diagrams: 11/19/18 05:58 11/19/18 05:58 Orders (Tests/Meds): ED MEDICATIONS Generic Name Dose Route Start Last Admin Trade Name Freq PRN Reason Stop Dose Admin Sodium Chloride 1,000 mls @ 999 mls/hr 11/19/18 06:15 11/19/18 06:02 Sod Chlor 0.9% 1000ml Bag IV 11/19/18 07:15 999 mls/hr .Q1H1M ERINN Administration Sodium Chloride 1,000 mls @ 100 mls/hr 11/19/18 06:15 11/19/18 07:16 Sod Chlor 0.9% 1000ml Bag IV 12/19/18 06:14 100 mls/hr .Q10H ERINN Administration Discontinued Medications Generic Name Dose Route Start Last Admin Trade Name Freq PRN Reason Stop Dose Admin Hydromorphone HCl 1 mg 11/19/18 07:05 11/19/18 07:16 Dilaudid 2mg/Ml Syringe IV 11/19/18 07:06 1 mg ONCE ONE Administration Ketorolac Tromethamine 30 mg 11/19/18 06:01 11/19/18 06:02 Toradol 30mg/Ml Vial IV 11/19/18 06:02 30 mg ONCE ONE Administration Ondansetron HCl 4 mg 11/19/18 06:01 11/19/18 06:02 Zofran 4mg/2ml Vial IV 11/19/18 06:02 4 mg ONCE ONE Administration Promethazine HCl 12.5 mg 11/19/18 07:06 11/19/18 07:16 Phenergan 25mg/Ml 1ml Vial IV 11/19/18 07:07 12.5 mg ONCE ONE Administration Sodium Chloride 25 ml 11/19/18 07:06 11/19/18 07:16 Sod Chlor 0.9% 25ml Bag IV 11/19/18 07:07 25 ml ONCE ONE Administration Nausea/Vomiting/Diarrhea HPI - General Chief complaint: Abdominal Pain Stated complaint: Nausea,vomiting,body hurts Time Seen by Provider: 11/19/18 06:03 Mode of Arrival: Ambulatory Source of Information: Patient, Medical Record Limitations: No Limitations Description of Symptoms (Recalled from ER Triage Doc. by RN): pt states she was told by pcp she had gallstones and has an appt. today at 0945 to meet with a surgeon to discuss sugery. pt c/o n/v and abd pain - History of Present Illness HPI Narrative: pt with upper abd pain worse over the last few days - pt with known gallbladder disease - she has no fever but has increased pain and has dec po intake MD complaint: nausea, vomiting, abdominal pain Onset (ago): day(s) Associated Abdominal Pain: Yes Location of pain: RUQ Severity: moderate Consistency: colicky Exacerbating factors: vomiting Associated symptoms: nausea/vomiting - Related Data Previous Rx's Medication Instructions Recorded omeprazole 20 mg capsule,delayed 20 mg PO DAILY #30 cap 11/12/18 release promethazine 12.5 mg tablet 12.5 mg PO TID PRN 3 Days #12 tab 11/12/18 Allergies Allergy/AdvReac Type Severity Reaction Status Date / Time cefaclor [CEFACLOR] Allergy Unknown Verified 11/12/18 09:05 Penicillins [PENICILLINS] Allergy Unknown Verified 11/12/18 09:05 Cephalosporins Allergy Verified 11/12/18 09:05 [facility] History - Hepatitis A Screen Drug use history?: No High risk sexual behaviors?: No History of sexually transmitted infection?: No Currently employed?: No Childcare worker?: No Do you have indoor plumbing?: No Do you have electricity?: Yes Attestation statement:: This patient has been screened for Hepatitis A risk factors. I have reviewed the patient's past medical history: Yes Medical History: Reports:: MRSA (back and buttock about 10 years ago) Denies:: Cancer, Diabetes Mellitus Type 1, Diabetes Mellitus Type 2, Hypertension Laterality Cases: Bilateral: Tonsillectomy Other Surgeries: Yes: Appendectomy, Bariatric Surgery, Hysterectomy-Total Amputation: No Fractures: Yes ([place]ia) - Social History Educational Level: Completed GED/General Educational Development Smoking Status: Former smoker Alcohol Intake: never Alcohol Intake Frequency:: holidays/special occasions only Substance Use Type: denies use Occupational Status: employed Housing: house Household Members: significant other - Psychiatric History Expresses thoughts of harming self/others: None Suicide Plan Description: No Plan Family Hx:: Coronary Artery Disease, Diabetes ROS Obtained: Yes All systems reviewed & no additional complaints - Constitutional Constitutional: Denies fever(s) - Eyes Eyes: Denies change in vision - ENT Ears, Nose, Mouth, and Throat: Denies headache(s), Denies sore throat - Cardiovascular Cardiovascular: Denies chest pain at rest - Respiratory Respiratory: No cough - Gastrointestinal Gastrointestingal: Reports: as per HPI, abdominal pain, nausea, vomiting. Denies: diarrhea, black, tarry stools - Genitourinary Female Genitourinary: Denies flank pain, Denies hematuria - Musculoskeletal Musculoskeletal: Denies joint pain, Denies joint swelling - Integumentary/Breasts Skin/Breast: Denies rash - Neurologic Neurologic: Denies seizure-like activity Physical Exam - General General appearance: alert, in no apparent distress, obese - Head Head exam: normocephalic - Eye Eye exam: Present: PERRL, EOMI. Absent: scleral icterus - ENT ENT exam: Present: mucous membranes dry - Neck Neck exam: Present: trachea midline - Respiratory Respiratory exam: Absent: respiratory distress - Cardiovascular Cardiovascular exam: Present: regular rate. Absent: systolic murmur - Abdominal Exam Abdominal exam: Present: soft, tenderness, Mendoza's sign Abdominal tenderness: Present: RUQ, moderate - Extremities Exam Extremities exam: Present: full ROM - Neurological Exam Neurological exam: Present: alert, oriented X3, CN II-XII intact - Psychiatric Psychiatric exam: Present: normal affect - Skin Skin exam: Absent: rash
[2018-11-19 06:15] LABS: Basophils % 0.5 % (0.1-2.0); Eosinophils % 0.6 % (0.1-12.0); Hemoglobin 11.2 g/dL (12.2-16.2); Lymphocytes # 0.8 K/mm3 (0.7-4.5); Lymphocytes % 16.4 % (10-50); Mean Corpuscular HGB Conc 33.9 g/dL (31.8-35.4); Mean Corpuscular Hemoglobin 25.4 pg (27.0-31.2); Mean Platelet Volume 7.5 fl (7.4-10.4); Monocytes # 0.5 K/mm3 (0.1-1.0); Monocytes % 10.3 % (1.7-9.3); Neutrophils # 3.3 K/mm3 (1.8-7.8); Neutrophils % 72.1 % (37.0-80.0); Platelet Count 278 K/mm3 (142-424); Red Cell Distribution Width 14.8 % (11.5-17.5); White Blood Count 4.5 K/mm3 (4.8-10.8)
[2018-11-19 06:24] LABS: Albumin Level 3.5 gm/dL (3.4-5.0); Albumin/Globulin Ratio 1.1 (1.1-1.8); Anion Gap 13.3 mEq/L (5-15); Bilirubin,Total 0.4 mg/dL (0.2-1.0); Calcium 8.1 mg/dL (8.5-10.1); Globulin 3.3 gm/dl (1.3-3.2); Potassium 3.3 mmoL/L (3.5-5.1); Total Protein,Serum 6.8 gm/dL (6.4-8.2)
--- NOTE | 2018-11-19 07:48 | Pharmacy Consult Notes ---
[facility] Pharmacy VTE Monitoring - Patient Demographics Admission date: 11/19/18 Report Date: 11/19/18 Time: 07:48 Allergies/Adverse Reactions: Patient Allergies cefaclor [CEFACLOR] Allergy (Unknown, Verified 11/12/18 09:05) Penicillins [PENICILLINS] Allergy (Unknown, Verified 11/12/18 09:05) Cephalosporins Allergy (Verified 11/12/18 09:05) Height: 1.65 m Weight: 99.79 kg Patient Problems: Current Active Problems Abdominal pain (Acute) Cholelithiasis (Acute) - VTE Risk Labs: VTE Related Lab Results Hgb 11.2 g/dL (12.2-16.2) L 11/19/18 05:58 Hct 33.0 % (37.0-47.0) L 11/19/18 05:58 Plt Count 278 K/mm3 (142-424) 11/19/18 05:58 BUN 13 mg/dL (7-18) 11/19/18 05:58 Creatinine 0.78 mg/dL (0.55-1.02) 11/19/18 05:58 Estimated Creat Clear 157 mL/min (50-200) 11/19/18 05:58 - Prophylaxis VTE Prophylaxis Ordered?: Yes Types of VTE Prophylaxis: TEDS Knee High Location of Applied Device: Bilateral Lower Extremeties - VTE Diagnosis Confirmed Treatment or plan recommended: Continue Current Treatment
--- NOTE | 2018-11-19 12:07 | Consult Report ---
*Admission Date: 11/19/18 *Chief complaint: Chills, weakness *History of present illness: Patient is a 38-year-old white female. She had been admitted to the hospital about a week and a half ago with complaints of cramping abdominal pain and diarrhea. She was diagnosed by stool PCR diarrhea panel with Beulah virus. She has had continued symptoms. Last week she underwent outpatient gallbladder ultrasound. This revealed small gallstones with no gallbladder wall thickening, no pericholecystic fluid, and normal common bile duct. She was scheduled for outpatient surgical consultation to be seen in the office this morning. 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 She presented to the emergency department. She complained of some right upper quadrant abdominal pain. He was admitted for inpatient management and surgical consultation. Patient has had shaking chills. She complains of general myalgias. Review of Systems - Review of Systems Review of systems:: pertinent systems reviewed and negative unless documented below - Constitutional Reports anorexia, Reports body ache(s), Reports chills - ENT Denies abnormal hearing - *Cardiovascular Denies chest pain - *Respiratory Denies shortness of breath - *Gastrointestinal Reports abdominal pain - *Genitourinary Denies painful urination - *Musculoskeletal Reports body aches - *Neurologic Denies headache(s), Denies seizure-like activity [facility] History Medical History: Reports:: MRSA Denies:: Cancer, Diabetes Mellitus Type 1, Diabetes Mellitus Type 2, Hypertension Have you ever received a pneumonia vaccine?: No Have you received a flu vaccine this season?: No Laterality Cases: Bilateral: Tonsillectomy Other Surgeries: Yes: Appendectomy, Bariatric Surgery, Hysterectomy-Total Amputation: No Fractures: Yes ([place]ia) - *Social History Educational Level: Completed GED/General Educational Development Smoking Status: Never smoker Alcohol Intake: never Alcohol Intake Frequency:: holidays/special occasions only Substance Use Type: denies use Occupational Status: employed Housing: house Household Members: significant other Travel in the last 8 weeks: None - Psychiatric History Expresses thoughts of harming self/others: None Suicide Plan Description: No Plan *Family Hx:: Coronary Artery Disease, Diabetes Meds Home Medications Medication Instructions Recorded Confirmed Type Omeprazole [Omeprazole 20mg 20 mg PO DAILY 11/19/18 11/19/18 History Capsule] Allergies Allergy/AdvReac Type Severity Reaction Status Date / Time cefaclor [CEFACLOR] Allergy Unknown Verified 11/12/18 09:05 Penicillins [PENICILLINS] Allergy Unknown Verified 11/12/18 09:05 Cephalosporins Allergy Verified 11/12/18 09:05 Exam Vital signs and Labs for Last 24 Hours: Temp Pulse Resp BP Pulse Ox 98 F 101 H 20 129/71 98 11/19/18 08:15 11/19/18 08:15 11/19/18 08:15 11/19/18 08:15 11/19/18 08:13 Laboratory Results - last 24 hr 11/19/18 05:58: WBC 4.5 L, RBC 4.40, Hgb 11.2 L, Hct 33.0 L, MCV 75.0 L, MCH 25.4 L, MCHC 33.9, RDW 14.8, Plt Count 278, MPV 7.5, Neut % (Auto) 72.1, Lymph % (Auto) 16.4, [place] % (Auto) 10.3 H, Eos % (Auto) 0.6, Baso % (Auto) 0.5, Neut # (Auto) 3.3, Lymph # (Auto) 0.8, [place] # (Auto) 0.5, Eos # (Auto) 0.0, Baso # (Auto) 0.0 11/19/18 05:58: Sodium 138, Potassium 3.3 L, Chloride 103, Carbon Dioxide 25, Anion Gap 13.3, BUN 13, Creatinine 0.78, Estimated Creat Clear 157, Estimated GFR 84, Est GFR ( Amer) 101, Glucose 111 H, Calcium 8.1 L, Total Bilirubin 0.4, AST 43 H, ALT 58, Alkaline Phosphatase 78, Total Protein 6.8, Albumin 3.5, Globulin 3.3 H, Albumin/Globulin Ratio 1.1, Amylase 41, Lipase 131 I & O for Last 24 hours: Intake & Output 11/17/18 11/18/18 11/19/18 11/20/18 11:59 11:59 11:59 11:59 Weight 226 lb 6 oz - *Routine HEENT Exam Head: Present: normocephalic Eye: Present: EOMI, PERRL ENT: Present: mucous membranes moist - *Routine Neck Exam Present: supple. Absent: lymphadenopathy - *Routine Respiratory Exam Present: CTA bilaterally - *Routine Cardiovascular Exam Present: RRR - *Routine Abdominal Exam Present: soft, tenderness - *Routine Extremities Exam Absent: cyanosis, clubbing, edema - *Routine Skin Exam Present: warm. Absent: rash - *Routine Neurological Exam Present: alert, oriented X3 - Detailed Eye Exam Eyelids: Left normal inspection Results - Labs 11/19/18 05:58 11/19/18 05:58 Laboratory Results - last 24 hr 11/19/18 05:58: WBC 4.5 L, RBC 4.40, Hgb 11.2 L, Hct 33.0 L, MCV 75.0 L, MCH 25.4 L, MCHC 33.9, RDW 14.8, Plt Count 278, MPV 7.5, Neut % (Auto) 72.1, Lymph % (Auto) 16.4, [place] % (Auto) 10.3 H, Eos % (Auto) 0.6, Baso % (Auto) 0.5, Neut # (Auto) 3.3, Lymph # (Auto) 0.8, [place] # (Auto) 0.5, Eos # (Auto) 0.0, Baso # (Auto) 0.0 11/19/18 05:58: Sodium 138, Potassium 3.3 L, Chloride 103, Carbon Dioxide 25, Anion Gap 13.3, BUN 13, Creatinine 0.78, Estimated Creat Clear 157, Estimated GFR 84, Est GFR ( Amer) 101, Glucose 111 H, Calcium 8.1 L, Total Bilirubin 0.4, AST 43 H, ALT 58, Alkaline Phosphatase 78, Total Protein 6.8, Albumin 3.5, Globulin 3.3 H, Albumin/Globulin Ratio 1.1, Amylase 41, Lipase 131 Assessment and Plan - Assessment and plan all Dx Assessment and Plan for all problems:: Small shadowing stones with no evidence of cholecystitis. Patient does seem to have some abdominal tenderness. However, her clinical scenario is not concordant with acute cholecystitis as she is having myalgias and shaking chills. At this time plan for continued IV hydration and observation. May plan for cholecystectomy during this admission
--- NOTE | 2018-11-19 12:40 | History & Physical Report ---
*Admission Date: 11/19/18 *Chief complaint: abd pain *History of present illness: this wf who has ongoing rt upper abd pain with abn gb u/s - she feels achey with her pain with dec po intake and vomiting - she had recent enteritis but this pain is different - she was seen in the ed and admitted sec to pain not controlled and unable to tolerate po intake - admitted for treatment and surg consult [facility] History I have reviewed the patient's past medical history: Yes Medical History: Reports:: MRSA Denies:: Cancer, Diabetes Mellitus Type 1, Diabetes Mellitus Type 2, Hypertension Have you ever received a pneumonia vaccine?: No Have you received a flu vaccine this season?: No Laterality Cases: Bilateral: Tonsillectomy Other Surgeries: Yes: Appendectomy, Bariatric Surgery, Hysterectomy-Total Amputation: No Fractures: Yes ([place]) - *Social History Educational Level: Completed GED/General Educational Development Smoking Status: Never smoker Alcohol Intake: never Alcohol Intake Frequency:: holidays/special occasions only Substance Use Type: denies use Occupational Status: employed Housing: house Household Members: significant other Travel in the last 8 weeks: None - Psychiatric History Expresses thoughts of harming self/others: None Suicide Plan Description: No Plan *Family Hx:: Coronary Artery Disease, Diabetes Review of Systems - Review of Systems Review of systems:: pertinent systems reviewed and negative unless documented below - Constitutional Reports fever(s) - Eyes Denies change in vision - ENT Denies sore throat - *Cardiovascular Denies chest pain with activity - *Respiratory Denies cough - *Gastrointestinal Reports abdominal pain, Reports nausea, Reports vomiting, Denies black, tarry stools - *Genitourinary Denies blood in urine - *Musculoskeletal Denies joint pain, Denies neck pain - Integumentary/Breasts Denies rash - *Neurologic Denies abnormal hearing, Denies headache(s), Denies seizure-like activity - Psychiatric Reports anxiety Meds Home Medications Medication Instructions Recorded Confirmed Type Omeprazole [Omeprazole 20mg 20 mg PO DAILY 11/19/18 11/19/18 History Capsule] Allergies Allergy/AdvReac Type Severity Reaction Status Date / Time cefaclor [CEFACLOR] Allergy Unknown Verified 11/12/18 09:05 Penicillins [PENICILLINS] Allergy Unknown Verified 11/12/18 09:05 Cephalosporins Allergy Verified 11/12/18 09:05 Exam Vital signs and Labs for Last 24 Hours: Temp Pulse Resp BP Pulse Ox 98 F 101 H 20 129/71 98 11/19/18 08:15 11/19/18 08:15 11/19/18 08:15 11/19/18 08:15 11/19/18 08:13 Laboratory Results - last 24 hr 11/19/18 05:58: WBC 4.5 L, RBC 4.40, Hgb 11.2 L, Hct 33.0 L, MCV 75.0 L, MCH 25.4 L, MCHC 33.9, RDW 14.8, Plt Count 278, MPV 7.5, Neut % (Auto) 72.1, Lymph % (Auto) 16.4, [place] % (Auto) 10.3 H, Eos % (Auto) 0.6, Baso % (Auto) 0.5, Neut # (Auto) 3.3, Lymph # (Auto) 0.8, [place] # (Auto) 0.5, Eos # (Auto) 0.0, Baso # (Auto) 0.0 11/19/18 05:58: Sodium 138, Potassium 3.3 L, Chloride 103, Carbon Dioxide 25, Anion Gap 13.3, BUN 13, Creatinine 0.78, Estimated Creat Clear 157, Estimated G FR 84, Est GFR ( Amer) 101, Glucose 111 H, Calcium 8.1 L, Total Bilirubin 0.4, AST 43 H, ALT 58, Alkaline Phosphatase 78, Total Protein 6.8, Albumin 3.5, Globulin 3.3 H, Albumin/Globulin Ratio 1.1, Amylase 41, Lipase 131 I & O for Last 24 hours: Intake & Output 11/17/18 11/18/18 11/19/18 11/20/18 11:59 11:59 11:59 11:59 Weight 226 lb 6 oz - Constitutional no acute distress, obese - *Routine HEENT Exam Head: Present: normocephalic Eye: Present: EOMI, PERRL ENT: Present: mucous membranes dry - *Routine Neck Exam Present: supple. Absent: JVD - *Routine Respiratory Exam Present: CTA bilaterally - *Routine Cardiovascular Exam Present: RRR. Absent: murmur - *Routine Abdominal Exam Present: soft, tenderness Comments: positive murphys sign - *Routine Extremities Exam Present: full ROM - Routine Back/Spine/Pelvis Exam Back/Spine: Absent: CVA tenderness - *Routine Skin Exam Present: intact - *Routine Neurological Exam Present: alert, oriented X3, CN II-XII intact - Routine Psychiatric Exam Present: normal affect Assessment and Plan (1) Cholelithiasis Current visit: Yes Status: Acute Qualifiers: Cholelithiasis location: gallbladder Cholecystitis presence: without cholecystitis Biliary obstruction: without biliary obstruction Qualified Code(s): K80.20 - Calculus of gallbladder without cholecystitis without obstruction Category: Medical Code(s): K80.20 - Calculus of gallbladder without cholecystitis without obstruction (2) Obesity (BMI 30-39.9) Current visit: Yes Status: Acute Category: Medical Code(s): E66.9 - Obesity, unspecified
--- NOTE | 2018-11-20 07:04 | Progress Note ---
Subjective Narrative: Patient having significant diarrhea and nausea. She says she has had the diarrhea for a month. Exam Vital signs and Labs for Last 24 Hours: Temp Pulse Resp BP Pulse Ox 100.1 F H 96 H 18 121/65 92 L 11/20/18 04:00 11/20/18 04:00 11/20/18 04:00 11/20/18 04:00 11/20/18 04:00 Laboratory Results - last 24 hr 11/19/18 12:40: Influenza Type A Ag Negative, Influenza Type B Ag Negative I & O for Last 24 hours: Intake & Output 11/17/18 11/18/18 11/19/18 11/20/18 11:59 11:59 11:59 11:59 Intake Total 1761 / 1761 Output Total 450 / 450 Balance 1311 / 1311 Weight 226 lb 6 oz 232 lb 6 oz - *Routine Abdominal Exam Present: soft, tenderness Progress Note: A&P (1) Cholelithiasis Status: Acute Current Visit: Yes (2) Obesity (BMI 30-39.9) Status: Acute Current Visit: Yes Assessment and Plan for All Diagnoses:: Will review CT and stool studies. If unremarkable may plan for cholecystectomy later today although her symptoms seem somewhat atypical for gallbladder and she had no sonographic evidence of cholecystitis.
[2018-11-20 07:35] LABS: Basophils % 0.5 % (0.1-2.0); Eosinophils % 0.1 % (0.1-12.0); Hematocrit 31.9 % (37.0-47.0); Hemoglobin 9.9 g/dL (12.2-16.2); Lymphocytes # 0.7 K/mm3 (0.7-4.5); Lymphocytes % 35.3 % (10-50); Mean Corpuscular HGB Conc 31.1 g/dL (31.8-35.4); Mean Corpuscular Hemoglobin 23.9 pg (27.0-31.2); Mean Corpuscular Volume 76.7 fl (81-99); Mean Platelet Volume 7.8 fl (7.4-10.4); Monocytes # 0.2 K/mm3 (0.1-1.0); Monocytes % 9.4 % (1.7-9.3); Neutrophils # 1.1 K/mm3 (1.8-7.8); Neutrophils % 54.7 % (37.0-80.0); Platelet Count 203 K/mm3 (142-424); Red Blood Count 4.15 M/mm3 (4.20-5.40); Red Cell Distribution Width 14.9 % (11.5-17.5)
[2018-11-20 07:48] LABS: Anion Gap 12.9 mEq/L (5-15); Chol/HDL Ratio 1.3 (1-3.5)
[2018-11-20 07:59] LABS: Potassium 2.9 mmoL/L (3.5-5.1)
[2018-11-20 08:03] LABS: Calcium 7.3 mg/dL (8.5-10.1)
--- NOTE | 2018-11-20 09:12 | Progress Note ---
Internal Medicine - PN: Subj *Date: 11/20/18 *Time: 09:11 Exam Vital signs and Labs for Last 24 Hours: Temp Pulse Resp BP Pulse Ox 100.6 F H 96 H 15 134/71 96 11/20/18 08:00 11/20/18 08:00 11/20/18 08:00 11/20/18 08:00 11/20/18 08:00 Laboratory Results - last 24 hr 11/19/18 12:40: Influenza Type A Ag Negative, Influenza Type B Ag Negative 11/20/18 06:47: WBC 2.0 L D, RBC 4.15 L, Hgb 9.9 L, Hct 31.9 L, MCV 76.7 L, MCH 23.9 L, MCHC 31.1 L, RDW 14.9, Plt Count 203 D, MPV 7.8, Neut % (Auto) 54.7, Lymph % (Auto) 35.3, [place] % (Auto) 9.4 H, Eos % (Auto) 0.1, Baso % (Auto) 0.5, Neut # (Auto) 1.1 L, Lymph # (Auto) 0.7, [place] # (Auto) 0.2, Eos # (Auto) 0.0, Baso # (Auto) 0.0 11/20/18 06:47: Sodium 138, Potassium 2.9 L*, Chloride 104, Carbon Dioxide 24, Anion Gap 12.9, BUN 9 D, Creatinine 0.70, Estimated Creat Clear 185, Estimated GFR 95, Est GFR ( Amer) 115, Glucose 102, Calcium 7.3 L, Triglycerides 25 L, Cholesterol 66 L, LDL Cholesterol 11, VLDL Cholesterol 5, HDL Cholesterol 50, Cholesterol/HDL Ratio 1.3 11/20/18 06:47: C-Reactive Protein 3.9 H I & O for Last 24 hours: Intake & Output 11/17/18 11/18/18 11/19/18 11/20/18 11:59 11:59 11:59 11:59 Intake Total 1761 / 1761 Output Total 450 / 450 Balance 1311 / 1311 Weight 226 lb 6 oz 232 lb 6 oz - *Routine HEENT Exam Head: Present: normocephalic Eye: Present: PERRL ENT: Present: mucous membranes moist - *Routine Neck Exam Present: supple. Absent: lymphadenopathy - *Routine Respiratory Exam Present: CTA bilaterally - *Routine Cardiovascular Exam Present: RRR, murmur - *Routine Abdominal Exam Present: soft, normoactive bowel sounds, tenderness - *Routine Extremities Exam Present: full ROM. Absent: cyanosis, clubbing, edema - *Routine Skin Exam Present: warm. Absent: rash - *Routine Neurological Exam Present: alert, oriented X3 - Routine Psychiatric Exam Present: normal affect Assessment and Plan (1) Cholelithiasis Current visit: Yes Status: Acute Qualifiers: Cholelithiasis location: gallbladder Cholecystitis presence: without cholecystitis Biliary obstruction: without biliary obstruction Qualified Code(s): K80.20 - Calculus of gallbladder without cholecystitis without obstruction Category: Medical Code(s): K80.20 - Calculus of gallbladder without cholecystitis without obstruction (2) Obesity (BMI 30-39.9) Current visit: Yes Status: Acute Category: Medical Code(s): E66.9 - Obesity, unspecified
[2018-11-20 20:40] LABS: Appearance,Urine CLEAR (Clear); Bilirubin,Urine Negative (Negative); Blood, Urine Negative (Negative); Color,Urine YELLOW (Yellow); Glucose,Urine (UA) Negative (Negative); Ketones,Urine TRACE (Negative); Leukocyte Esterase,Urine Negative (Negative); Microscopic, Urine URINE MICROSCOPIC (MICROSCOPIC); PH,Urine 5.5 (5.0-8.5); Protein,Urine Negative (Negative); Urobilinogen,Urine 0.2 EU/dl (0.2)
[2018-11-20 20:49] LABS: Amorphous Sediment,Urine 1+ /lpf; Bacteria,Urine 2+ /lpf; Mucus,Urine 1+ /lpf
--- NOTE | 2018-11-21 05:57 | Cardiology Report ---
PROCEDURE: 2-D M-mode and color Doppler study INDICATIONS FOR THE TEST: Chest pain COPD Heart MurmurX Tobacco Smoking Palpitations Fatigue Syncope Edema Hypertension Diabetes Mellitus Rheumatic Fever SOB MENDOZA Obesity Hyperlipidemia Family History HD Additional History MRSA PATIENT INFORMATION HEIGHT: 67 WEIGHT:232 GENDER: Female B/P:134/71 2-D/M-MODE INTERPRETATION: 2-D MEASUREMENTS OBSERVED VALUES IN CMS Right Ventricular Dimension (RVDd) 2.6 Interventricular Septum (Thickness)(IVsd) .7 Left Ventricular Internal Dimensions(LVIDd) 5.3 Left Ventricular Posterior Wall (Thickness)(LVPWd) .9 Aortic Root 2.8 Aortic Cusp Separation 1.8 Left Atrial Dimensions (LAD) 3.2 2D 1. Left atrium is mildly enlarged, left ventricle is normal size, there is no concentric left ventricular hypertrophy, visually estimated ejection fraction 55% with no regional wall motion abnormality. 2. The right atrium and right ventricle are normal size and contractility. 3. The aortic valve is minimally thickened and fibrosed. 4. The mitral and tricuspid valvular grossly normal. 5. The pulmonic valve is poorly visualized. 6. No significant pericardial effusion noted. DOPPLER INTERROGATION: Doppler interrogation of the aortic, mitral and tricuspid valvular presence of trace aortic, mild mitral and tricuspid regurgitation, tricuspid regurgitation jet velocity is inadequate for calculation of the right ventricular systolic pressure, diastolic parameters are within normal range. CONCLUSION: 1. Mildly enlarged left atrium, normal left ventricular size, visually estimated ejection fraction 55% with no regional wall motion abnormality, diastolic parameters are within normal range. 2. Trace aortic, mild mitral and tricuspid regurgitation 3. No significant pericardial effusion noted 4. If clinically indicated transesophageal echocardiogram has better sensitivity in detecting the valvular vegitations.
--- NOTE | 2018-11-21 06:52 | Progress Note ---
Subjective Narrative: Patient complains of significant dry heaves and nausea. She has had ongoing diarrhea. She complains of right-sided abdominal pain. Exam Vital signs and Labs for Last 24 Hours: Temp Pulse Resp BP Pulse Ox 98.6 F 74 16 128/74 97 11/21/18 04:25 11/21/18 04:25 11/21/18 04:25 11/21/18 04:25 11/21/18 04:25 Laboratory Results - last 24 hr 11/20/18 04:50: Urine Color Yellow, Urine Appearance Clear, Urine pH 5.5, Ur Specific [place] 1.020, Urine Protein Negative, Urine Glucose (UA) Negative, Urine Ketones Trace, Urine Blood Negative, Urine Nitrate Positive, Urine Bilirubin Negative, Urine Urobilinogen 0.2, Ur Leukocyte Esterase Negative, Urine RBC 3-5, Urine WBC 3-5, Ur Squamous Epith Cells 3-5, Amorphous Sediment 1+, Urine Bacteria 2+, Urine Mucus 1+ 11/20/18 05:20: Stl Aeromonas (PCR) Not detected, Stl C. cayetanensis PCR Not detected, Stool Rotavirus (PCR) Not detected, Stl Adenov F 40/41 PCR Not detected, Stool Astrovirus (PCR) Not detected, Stool Campylobacter PCR Not detected, Stl C.difficile Tox PCR Not detected, Stool Cryptosporidium PCR Not detected, Stl E.coli Shiga Tox PCR Not detected, Stool E coli O157 PCR Not detected, Stl Enterotoxigenic E PCR Not detected, Stool EPEC (PCR) Not detected, Stool EAEC (PCR) Not detected, Stl E. histolytica PCR Not detected, Stool Giardia Lamblia PCR Not detected, Stool Salmonella PCR Not detected, Stool Sapovirus (PCR) Not detected, Stl P. shigelloides PCR Not detected, Stl Shigella/EIEC PCR Not detected, St Y.enterocolitica PCR Not detected, Stool Vibrio (PCR) Not detected, Stl Vibrio cholerae PCR Not detected, Stl Norovirus GI/GII PCR Not detected 11/20/18 06:47: WBC 2.0 L D, RBC 4.15 L, Hgb 9.9 L, Hct 31.9 L, MCV 76.7 L, MCH 23.9 L, MCHC 31.1 L, RDW 14.9, Plt Count 203 D, MPV 7.8, Neut % (Auto) 54.7, Lymph % (Auto) 35.3, [place] % (Auto) 9.4 H, Eos % (Auto) 0.1, Baso % (Auto) 0.5, Neut # (Auto) 1.1 L, Lymph # (Auto) 0.7, [place] # (Auto) 0.2, Eos # (Auto) 0.0, Baso # (Auto) 0.0 11/20/18 06:47: Sodium 138, Potassium 2.9 L*, Chloride 104, Carbon Dioxide 24, Anion Gap 12.9, BUN 9 D, Creatinine 0.70, Estimated Creat Clear 185, Estimated GFR 95, Est GFR ( Amer) 115, Glucose 102, Calcium 7.3 L, Triglycerides 25 L, Cholesterol 66 L, LDL Cholesterol 11, VLDL Cholesterol 5, HDL Cholesterol 50, Cholesterol/HDL Ratio 1.3 11/20/18 06:47: ESR 11 11/20/18 06:47: C-Reactive Protein 3.9 H 11/20/18 09:16: Lactate 0.6 I & O for Last 24 hours: Intake & Output 11/18/18 11/19/18 11/20/18 11/21/18 11:59 11:59 11:59 11:59 Intake Total 1761 / 1761 1335 / 1335 Output Total 650 / 650 Balance 1111 / 1111 1335 / 1335 Weight 226 lb 6 oz 232 lb 6 oz 231 lb 5.297 oz Microbiology Reports for the Last 24 Hours: Microbiology 11/20/18 04:50 Urine,Clean Catch Urine Culture - Preliminary 11/20/18 04:55 Sputum - Expectorated Sputum Gram Stain - Final - *Routine Abdominal Exam Present: soft, tenderness Comments: Tender in RUQ. Progress Note: A&P (1) Cholelithiasis Status: Acute Current Visit: Yes (2) Obesity (BMI 30-39.9) Status: Acute Current Visit: Yes Assessment and Plan for All Diagnoses:: Check labs today. Presentation somewhat atypical for gallbladder. However, if no other etiology for her symptomatology is able to be identified and treated may need to consider cholecystectomy later.
[2018-11-21 07:17] LABS: Hepatitis B Core Antibody IgM Negative (Negative); Hepatitis B Surface Antigen Negative (Negative)
[2018-11-21 08:20] LABS: Basophils % 0.7 % (0.1-2.0); Eosinophils % 0.5 % (0.1-12.0); Hematocrit 33.4 % (37.0-47.0); Hemoglobin 10.3 g/dL (12.2-16.2); Lymphocytes # 1.1 K/mm3 (0.7-4.5); Lymphocytes % 38.4 % (10-50); Mean Corpuscular HGB Conc 30.7 g/dL (31.8-35.4); Mean Corpuscular Hemoglobin 23.8 pg (27.0-31.2); Mean Corpuscular Volume 77.5 fl (81-99); Mean Platelet Volume 7.8 fl (7.4-10.4); Monocytes # 0.3 K/mm3 (0.1-1.0); Monocytes % 9.6 % (1.7-9.3); Neutrophils # 1.5 K/mm3 (1.8-7.8); Neutrophils % 50.7 % (37.0-80.0); Platelet Count 185 K/mm3 (142-424); Red Blood Count 4.31 M/mm3 (4.20-5.40); Red Cell Distribution Width 14.9 % (11.5-17.5); White Blood Count 2.9 K/mm3 (4.8-10.8)
[2018-11-21 08:46] LABS: Albumin Level 2.7 gm/dL (3.4-5.0); Albumin/Globulin Ratio 0.9 (1.1-1.8); Anion Gap 12.3 mEq/L (5-15); Bilirubin,Total 0.5 mg/dL (0.2-1.0); Calcium 7.8 mg/dL (8.5-10.1); Globulin 3.1 gm/dl (1.3-3.2); Potassium 3.3 mmoL/L (3.5-5.1); Total Protein,Serum 5.8 gm/dL (6.4-8.2)
--- NOTE | 2018-11-21 10:59 | Progress Note ---
Internal Medicine - PN: Subj *Date: 11/21/18 *Time: 08:00 Interval history: pt with no fever but still sig pain rt upper abd- wbc better Exam Vital signs and Labs for Last 24 Hours: Temp Pulse Resp BP Pulse Ox 99.0 F 66 15 110/59 L 93 L 11/21/18 07:37 11/21/18 07:37 11/21/18 07:37 11/21/18 07:37 11/21/18 07:37 Laboratory Results - last 24 hr 11/20/18 04:50: Urine Color Yellow, Urine Appearance Clear, Urine pH 5.5, Ur Specific [place] 1.020, Urine Protein Negative, Urine Glucose (UA) Negative, Urine Ketones Trace, Urine Blood Negative, Urine Nitrate Positive, Urine Bilirubin Negative, Urine Urobilinogen 0.2, Ur Leukocyte Esterase Negative, Urine RBC 3-5, Urine WBC 3-5, Ur Squamous Epith Cells 3-5, Amorphous Sediment 1+, Urine Bacteria 2+, Urine Mucus 1+ 11/21/18 07:25: WBC 2.9 L D, RBC 4.31, Hgb 10.3 L, Hct 33.4 L, MCV 77.5 L, MCH 23.8 L, MCHC 30.7 L, RDW 14.9, Plt Count 185, MPV 7.8, Neut % (Auto) 50.7, Lymph % (Auto) 38.4, [place] % (Auto) 9.6 H, Eos % (Auto) 0.5, Baso % (Auto) 0.7, Neut # (Auto) 1.5 L, Lymph # (Auto) 1.1, [place] # (Auto) 0.3, Eos # (Auto) 0.0, Baso # (Auto) 0.0 11/21/18 07:25: Sodium 137, Potassium 3.3 L, Chloride 103, Carbon Dioxide 25, Anion Gap 12.3, BUN 8, Creatinine 0.64, Estimated Creat Clear 205, Estimated GFR 105, Est GFR ( Amer) 127, Glucose 77, Calcium 7.8 L, Total Bilirubin 0.5, AST 140 H D, ALT 148 H D, Alkaline Phosphatase 88, Total Protein 5.8 L, Albumin 2.7 L, Globulin 3.1, Albumin/Globulin Ratio 0.9 L I & O for Last 24 hours: Intake & Output 11/18/18 11/19/18 11/20/18 11/21/18 11:59 11:59 11:59 11:59 Intake Total 1861 / 1861 1335 / 1335 Output Total 650 / 650 Balance 1211 / 1211 1335 / 1335 Weight 226 lb 6 oz 232 lb 6 oz 235 lb 3 oz Microbiology Reports for the Last 24 Hours: Microbiology 11/20/18 04:55 Sputum - Expectorated Sputum Gram Stain - Final 11/20/18 04:55 Sputum - Expectorated Sputum Sputum Culture - Preliminary 11/20/18 04:50 Urine,Clean Catch Urine Culture - Preliminary - Constitutional no acute distress, obese - *Routine HEENT Exam Head: Present: normocephalic Eye: Present: EOMI, PERRL. Absent: conjunctival icterus ENT: Present: mucous membranes dry - *Routine Neck Exam Present: supple - *Routine Respiratory Exam Present: CTA bilaterally - *Routine Cardiovascular Exam Present: RRR - *Routine Abdominal Exam Present: soft, tenderness Comments: tender rt upper abd - *Routine Extremities Exam Present: full ROM - *Routine Skin Exam Present: intact - *Routine Neurological Exam Present: alert, oriented X3, CN II-XII intact - Routine Psychiatric Exam Present: normal affect Assessment and Plan (1) Cholelithiasis Current visit: Yes Status: Acute Qualifiers: Cholelithiasis location: gallbladder Cholecystitis presence: without cholecystitis Biliary obstruction: without biliary obstruction Qualified Code(s): K80.20 - Calculus of gallbladder without cholecystitis without obstruction Category: Medical Code(s): K80.20 - Calculus of gallbladder without cholecystitis without obstruction (2) Obesity (BMI 30-39.9) Current visit: Yes Status: Acute Category: Medical Code(s): E66.9 - Obesity, unspecified (3) Leukopenia Current visit: Yes Status: Acute Category: Medical Code(s): D72.819 - Decreased white blood cell count, unspecified
--- NOTE | 2018-11-21 13:01 | Progress Note ---
[facility] Anesthesia Checklist - Patient Identification Patient Identification: Arm Band - Structural Data Admitted From: Home Planned Operative Procedure/s: lap jenna Consent for Planned Operative Procedure(s) Verified: Yes Verified Documents: Surgical Consent, History and Physical - NPO Status Verified Time NPO: 00:00 - Additional verifications Anesthesia Reactions: No - Airway Assessment C-Spine Mobility Assessed: Yes (mp3) TMJ Mobility Assessed: Yes Dentition: Good Dentition - Neurological Assessment Level of Consciousness: Awake, Alert - Anesthesia Plan Anesthesia Risk discussed: Yes Anesthesia Plan: Verified ASA Class: II Anesthesia Type: General [facility] History I have reviewed the patient's past medical history: Yes Medical History: Reports:: MRSA Denies:: Cancer, Diabetes Mellitus Type 1, Diabetes Mellitus Type 2, Hypertension Have you ever received a pneumonia vaccine?: No Have you received a flu vaccine this season?: No Laterality Cases: Bilateral: Tonsillectomy Other Surgeries: Yes: Appendectomy, Bariatric Surgery, Hysterectomy-Total Amputation: No Fractures: Yes ([place]) - *Social History Educational Level: Completed GED/General Educational Development Smoking Status: Never smoker Alcohol Intake: never Alcohol Intake Frequency:: holidays/special occasions only Substance Use Type: denies use Occupational Status: employed Housing: house Household Members: significant other Travel in the last 8 weeks: None - Psychiatric History Expresses thoughts of harming self/others: None Suicide Plan Description: No Plan *Family Hx:: Coronary Artery Disease, Diabetes
[2018-11-21 13:11] LABS: Hepatitis C Antibody 0.1 s/co ratio (0.0-0.9)
--- NOTE | 2018-11-21 15:13 | Progress Note ---
Subjective Narrative: Plan was for laparoscopic cholecystectomy due to lack of other clear etiology for her symptoms, although symptoms quite atypical for gallbladder. Exam Vital signs and Labs for Last 24 Hours: Temp Pulse Resp BP Pulse Ox 99.0 F 66 15 110/59 L 93 L 11/21/18 07:37 11/21/18 07:37 11/21/18 07:37 11/21/18 07:37 11/21/18 07:37 Laboratory Results - last 24 hr 11/20/18 04:50: Urine Color Yellow, Urine Appearance Clear, Urine pH 5.5, Ur S pecific [place] 1.020, Urine Protein Negative, Urine Glucose (UA) Negative, Urine Ketones Trace, Urine Blood Negative, Urine Nitrate Positive, Urine Bilirubin Negative, Urine Urobilinogen 0.2, Ur Leukocyte Esterase Negative, Urine RBC 3-5, Urine WBC 3-5, Ur Squamous Epith Cells 3-5, Amorphous Sediment 1+, Urine Bacteria 2+, Urine Mucus 1+ 11/20/18 06:47: Hepatitis A IgM Ab Positive A, Hep Bs Antigen Negative, Hep B Core IgM Ab Negative, Hepatitis C Antibody 0.1 11/21/18 07:25: WBC 2.9 L D, RBC 4.31, Hgb 10.3 L, Hct 33.4 L, MCV 77.5 L, MCH 23.8 L, MCHC 30.7 L, RDW 14.9, Plt Count 185, MPV 7.8, Neut % (Auto) 50.7, Lymph % (Auto) 38.4, [place] % (Auto) 9.6 H, Eos % (Auto) 0.5, Baso % (Auto) 0.7, Neut # (Auto) 1.5 L, Lymph # (Auto) 1.1, [place] # (Auto) 0.3, Eos # (Auto) 0.0, Baso # (Auto) 0.0 11/21/18 07:25: Sodium 137, Potassium 3.3 L, Chloride 103, Carbon Dioxide 25, Anion Gap 12.3, BUN 8, Creatinine 0.64, Estimated Creat Clear 205, Estimated GFR 105, Est GFR ( Amer) 127, Glucose 77, Calcium 7.8 L, Total Bilirubin 0.5, AST 140 H D, ALT 148 H D, Alkaline Phosphatase 88, Total Protein 5.8 L, Albumin 2.7 L, Globulin 3.1, Albumin/Globulin Ratio 0.9 L I & O for Last 24 hours: Intake & Output 11/19/18 11/20/18 11/21/18 11/22/18 11:59 11:59 11:59 11:59 Intake Total 1861 / 1861 1335 / 1335 Output Total 650 / 650 150 / 150 Balance 1211 / 1211 1335 / 1335 -150 / -150 Weight 226 lb 6 oz 232 lb 6 oz 235 lb 3 oz Microbiology Reports for the Last 24 Hours: Microbiology 11/20/18 04:55 Sputum - Expectorated Sputum Gram Stain - Final 11/20/18 04:55 Sputum - Expectorated Sputum Sputum Culture - Preliminary 11/20/18 04:50 Urine,Clean Catch Urine Culture - Preliminary - Constitutional no acute distress Progress Note: A&P (1) Cholelithiasis Status: Acute Current Visit: Yes (2) Obesity (BMI 30-39.9) Status: Acute Current Visit: Yes (3) Leukopenia Status: Acute Current Visit: Yes Assessment and Plan for All Diagnoses:: Patient's repeat hepatitis panel just returned shortly before planned surgery as positive for hepatitis A. This is consistent with current active Hepatitis A infection. Symptoms are more consistent with hepatitis A. Will cancel surgery.
--- NOTE | 2018-11-22 06:50 | Progress Note ---
Subjective Patient reports: other ("maybe a bit worse this morning, but pretty much the same") Exam Vital signs and Labs for Last 24 Hours: Temp Pulse Resp BP Pulse Ox 98.8 F 73 16 108/59 L 96 11/22/18 04:00 11/22/18 04:00 11/22/18 04:00 11/22/18 04:00 11/22/18 04:00 Laboratory Results - last 24 hr 11/20/18 06:47: Hepatitis A IgM Ab Positive A, Hep Bs Antigen Negative, Hep B Core IgM Ab Negative, Hepatitis C Antibody 0.1 11/21/18 07:25: WBC 2.9 L D, RBC 4.31, Hgb 10.3 L, Hct 33.4 L, MCV 77.5 L, MCH 23.8 L, MCHC 30.7 L, RDW 14.9, Plt Count 185, MPV 7.8, Neut % (Auto) 50.7, Lymph % (Auto) 38.4, [place] % (Auto) 9.6 H, Eos % (Auto) 0.5, Baso % (Auto) 0.7, Neut # (Auto) 1.5 L, Lymph # (Auto) 1.1, [place] # (Auto) 0.3, Eos # (Auto) 0.0, Baso # (Auto) 0.0 11/21/18 07:25: Sodium 137, Potassium 3.3 L, Chloride 103, Carbon Dioxide 25, Anion Gap 12.3, BUN 8, Creatinine 0.64, Estimated Creat Clear 205, Estimated GFR 105, Est GFR ( Amer) 127, Glucose 77, Calcium 7.8 L, Total Bilirubin 0.5, AST 140 H D, ALT 148 H D, Alkaline Phosphatase 88, Total Protein 5.8 L, Albumin 2.7 L, Globulin 3.1, Albumin/Globulin Ratio 0.9 L I & O for Last 24 hours: Intake & Output 11/19/18 11/20/18 11/21/18 11/22/18 11:59 11:59 11:59 11:59 Intake Total 1861 / 1861 1335 / 1335 1346 / 1346 Output Total 650 / 650 350 / 350 Balance 1211 / 1211 1335 / 1335 996 / 996 Weight 226 lb 6 oz 232 lb 6 oz 235 lb 3 oz 227 lb 8 oz Microbiology Reports for the Last 24 Hours: Microbiology 11/20/18 04:55 Sputum - Expectorated Sputum Gram Stain - Final 11/20/18 04:55 Sputum - Expectorated Sputum Sputum Culture - Preliminary 11/20/18 04:50 Urine,Clean Catch Urine Culture - Preliminary - Constitutional no acute distress - *Routine Respiratory Exam Absent: respiratory distress - *Routine Cardiovascular Exam Present: RRR - *Routine Abdominal Exam Present: soft Progress Note: A&P (1) Cholelithiasis Status: Acute Assessment and plan: Plans for laparoscopic cholecystectomy canceled yesterday secondary to return of positive Hepatitis A IgM Ab Current Visit: Yes (2) Obesity (BMI 30-39.9) Status: Acute Current Visit: Yes (3) Leukopenia Status: Acute Current Visit: Yes (4) Hepatitis A Status: Acute Assessment and plan: continue current medical management Current Visit: Yes
[2018-11-22 07:22] LABS: Basophils % 0.6 % (0.1-2.0); Eosinophils # 0.1 K/mm3 (0.0-0.4); Eosinophils % 1.7 % (0.1-12.0); Hematocrit 30.2 % (37.0-47.0); Hemoglobin 9.6 g/dL (12.2-16.2); Lymphocytes # 1.6 K/mm3 (0.7-4.5); Lymphocytes % 50.3 % (10-50); Mean Corpuscular HGB Conc 31.9 g/dL (31.8-35.4); Mean Corpuscular Hemoglobin 24.3 pg (27.0-31.2); Mean Corpuscular Volume 76.2 fl (81-99); Mean Platelet Volume 8.2 fl (7.4-10.4); Monocytes # 0.3 K/mm3 (0.1-1.0); Monocytes % 9.1 % (1.7-9.3); Neutrophils # 1.2 K/mm3 (1.8-7.8); Neutrophils % 38.3 % (37.0-80.0); Platelet Count 161 K/mm3 (142-424); Red Blood Count 3.96 M/mm3 (4.20-5.40); White Blood Count 3.1 K/mm3 (4.8-10.8)
[2018-11-22 07:30] LABS: Albumin Level 2.4 gm/dL (3.4-5.0); Albumin/Globulin Ratio 0.9 (1.1-1.8); Anion Gap 12.1 mEq/L (5-15); Bilirubin,Total 0.4 mg/dL (0.2-1.0); Calcium 7.5 mg/dL (8.5-10.1); Globulin 2.8 gm/dl (1.3-3.2); Potassium 3.1 mmoL/L (3.5-5.1); Total Protein,Serum 5.2 gm/dL (6.4-8.2)
--- NOTE | 2018-11-22 08:54 | Discharge Summary ---
General - General Admission date:: 11/19/18 Discharge date: 11/22/18 HPI HPI: this wf who has ongoing rt upper abd pain with abn gb u/s - she feels achey with her pain with dec po intake and vomiting - she had recent enteritis but this pain is different - she was seen in the ed and admitted sec to pain not controlled and unable to tolerate po intake - admitted for treatment and surg consult Hospital Course Hospital Course: echo:CONCLUSION: 1. Mildly enlarged left atrium, normal left ventricular size, visually estimated ejection fraction 55% with no regional wall motion abnormality, diastolic parameters are within normal range. 2. Trace aortic, mild mitral and tricuspid regurgitation 3. No significant pericardial effusion noted 4. If clinically indicated transesophageal echocardiogram has better sensitivity in detecting the valvular vegitations. ct abd/pelvis:IMPRESSION: 1. Cholelithiasis with mildly distended gallbladder and minimal periportal edema 2. Other incidental nonacute findings as described above. x ray:neg Hepatitis A positive, gallbladder removal placed on hold will reevaluate as outpatient. Will discharge home today with Zofran and Phenergan. Objective Vital signs: Temp Pulse Resp BP Pulse Ox 98.4 F 68 17 125/77 97 11/22/18 07:38 11/22/18 07:38 11/22/18 07:38 11/22/18 07:38 11/22/18 07:46 no acute distress - *Routine Neck Exam Present: full ROM - *Routine Respiratory Exam Present: CTA bilaterally - *Routine Cardiovascular Exam Present: RRR, murmur - *Routine Abdominal Exam Present: soft, normoactive bowel sounds, tenderness - *Routine Extremities Exam Present: full ROM - *Routine Skin Exam Present: intact - *Routine Neurological Exam Present: alert, oriented X3 - Routine Psychiatric Exam Present: normal affect Results Labs on day of discharge: Labs from last 24 hours 11/22/18 11/22/18 11/20/18 06:40 06:40 06:47 WBC 3.1 L RBC 3.96 L Hgb 9.6 L Hct 30.2 L MCV 76.2 L MCH 24.3 L MCHC 31.9 RDW 15.0 Plt Count 161 MPV 8.2 Neut % (Auto) 38.3 Lymph % (Auto) 50.3 H [place] % (Auto) 9.1 Eos % (Auto) 1.7 Baso % (Auto) 0.6 Neut # (Auto) 1.2 L Lymph # (Auto) 1.6 [place] # (Auto) 0.3 Eos # (Auto) 0.1 Baso # (Auto) 0.0 Sodium 141 Potassium 3.1 L Chloride 107 Carbon Dioxide 25 Anion Gap 12.1 BUN 5 L D Creatinine 0.55 Estimated Creat Clear 230 Estimated GFR 125 Est GFR ( Amer) 151 Glucose 89 Calcium 7.5 L Total Bilirubin 0.4 AST 259 H D ALT 224 H D Alkaline Phosphatase 82 Total Protein 5.2 L Albumin 2.4 L D Globulin 2.8 Albumin/Globulin Ratio 0.9 L Urine Color Urine Appearance Urine pH Ur Specific [place] Urine Protein Urine Glucose (UA) Urine Ketones Urine Blood Urine Nitrate Urine Bilirubin Urine Urobilinogen Ur Leukocyte Esterase Urine RBC Urine WBC Ur Squamous Epith Cells Amorphous Sediment Urine Bacteria Urine Mucus Hepatitis A IgM Ab Positive A Hep Bs Antigen Negative Hep B Core IgM Ab Negative Hepatitis C Antibody 0.1 11/20/18 04:50 WBC RBC Hgb Hct MCV MCH MCHC RDW Plt Count MPV Neut % (Auto) Lymph % (Auto) [place] % (Auto) Eos % (Auto) Baso % (Auto) Neut # (Auto) Lymph # (Auto) [place] # (Auto) Eos # (Auto) Baso # (Auto) Sodium Potassium Chloride Carbon Dioxide Anion Gap BUN Creatinine Estimated Creat Clear Estimated GFR Est GFR ( Amer) Glucose Calcium Total Bilirubin AST ALT Alkaline Phosphatase Total Protein Albumin Globulin Albumin/Globulin Ratio Urine Color Yellow Urine Appearance Clear Urine pH 5.5 Ur Specific [place] 1.020 Urine Protein Negative Urine Glucose (UA) Negative Urine Ketones Trace Urine Blood Negative Urine Nitrate Positive Urine Bilirubin Negative Urine Urobilinogen 0.2 Ur Leukocyte Esterase Negative Urine RBC 3-5 Urine WBC 3-5 Ur Squamous Epith Cells 3-5 Amorphous Sediment 1+ Urine Bacteria 2+ Urine Mucus 1+ Hepatitis A IgM Ab Hep Bs Antigen Hep B Core IgM Ab Hepatitis C Antibody Preliminary micro results at discharge 11/20/18 04:50 Urine Culture - Preliminary Urine,Clean Catch Gram Negative Rods 11/20/18 04:55 Sputum Culture - Preliminary Sputum - Expectorated Sputum - Additional Comments Rounded with Dr. Mills all orders per Gene DS: Diagnosis - Discharge Diagnosis (1) Cholelithiasis Status: Acute (2) Obesity (BMI 30-39.9) Status: Acute (3) Leukopenia Status: Acute (4) Hepatitis A Status: Acute Discharge Plan - Patient Discharge Instructions ACTIVITY: Continue current activity DIET: continue same diet Patient Instructions: Hepatitis A, DI for Gallstones - Follow up Plan Follow up with: Az Mills MD [Primary Care Provider] - 1 week Maurice Orlando MD [Staff Physician] - 1 week Disposition: Home, Self-Group Home Medications: Home Medications Medication Instructions Recorded Confirmed Type Omeprazole [Omeprazole 20mg 20 mg PO DAILY 11/19/18 11/19/18 History Capsule] Ondansetron HCl [Zofran 4mg Tab] 4 mg PO Q8 PRN #14 tab 11/22/18 Rx Promethazine HCl [Phenergan 12.5mg 12.5 mg PO Q8 PRN #14 tab 11/22/18 Rx tablet] Prescriptions/Medication Reconciliation: New Promethazine HCl [Phenergan 12.5mg tablet] 12.5 mg PO Q8 PRN #14 tab PRN Reason: Nausea Ondansetron HCl [Zofran 4mg Tab] 4 mg PO Q8 PRN #14 tab PRN Reason: Nausea Continue Omeprazole [Omeprazole 20mg Capsule] 20 mg PO DAILY
[2018-11-22 09:54] LABS: Eosinophils % 4 % (0-3); Lymphocytes % 42 % (10-50); Monocytes % 10 % (2-9); Neutrophils % 37 % (42-76); Total Cells Counted 100
[2018-11-22 09:55] LABS: RBC Morphology Normal
== END 2018-11-22 10:10 | disposition home or self-care (01) | DRG 445 ==
LOC: ER 05:39 → 2ND 05:39 → OBSVTOIN 08:20 → 2ND 08:21
PROVIDERS: ADMIT Emergency Medicine; ATTEND Emergency Medicine
CPT/HCPCS: 36415; 71020; 71046; 74177; 80048; 80053; 80061; 80074; 81001; 82150; 83605; 83690; 85007; 85025; 85651; 86140; 86684; 87040; 87070; 87086; 87088; 87186; 87205; 87275; 87276; 87507; 93306; 96365; 96366; 96375; 99284; J1956; J2405; Q9967

== ENCOUNTER → 2018-12-13 10:07 | Outpatient (CLI) | payer MEDICAID, SELFPAY ==
[2018-12-13 11:03] LABS: Ammonia < 10 umol/L (19-54)
[2018-12-13 11:14] LABS: Basophils % 0.3 % (0.1-2.0); Eosinophils # 0.2 K/mm3 (0.0-0.4); Eosinophils % 2.7 % (0.1-12.0); Hematocrit 36.5 % (37.0-47.0); Hemoglobin 11.4 g/dL (12.2-16.2); Lymphocytes # 2.2 K/mm3 (0.7-4.5); Lymphocytes % 37.5 % (10-50); Mean Corpuscular HGB Conc 31.2 g/dL (31.8-35.4); Mean Corpuscular Hemoglobin 25.6 pg (27.0-31.2); Monocytes # 0.4 K/mm3 (0.1-1.0); Monocytes % 7.5 % (1.7-9.3); Platelet Count 357 K/mm3 (142-424); Red Blood Count 4.46 M/mm3 (4.20-5.40); Red Cell Distribution Width 20.4 % (11.5-17.5); White Blood Count 5.8 K/mm3 (4.8-10.8)
[2018-12-13 11:55] LABS: Alanine Aminotransferase 88 U/L (12-78); Albumin Level 3.8 gm/dL (3.4-5.0); Albumin/Globulin Ratio 0.9 (1.1-1.8); Alkaline Phosphatase 201 U/L (46-116); Anion Gap 14.7 mEq/L (5-15); Aspartate Amino Transferase 39 U/L (15-37); Bilirubin,Total 1.3 mg/dL (0.2-1.0); Blood Urea Nitrogen 11 mg/dL (7-18); Calcium 8.9 mg/dL (8.5-10.1); Carbon Dioxide 26 mmol/L (21.0-32.0); Chloride 104 mmol/L (98-107); Chol/HDL Ratio 4.1 (1-3.5); Cholesterol 156 mg/dL (140-200); Creatinine,Serum 0.71 mg/dL (0.55-1.02); Estimated Glomerular Filt Rate 93 ml/min (>60); Ferritin 137 ng/mL (8-388); Free T4 (Free Thyroxine) 1.06 ng/dl (0.76-1.46); GFR (African American) 113 ML/MIN (>60); Globulin 4.4 gm/dl (1.3-3.2); Glucose 86 mg/dL (74-106); HDL Cholesterol 38 mg/dL (29-89); LDL Cholesterol 96 mg/dL (0-130); Potassium 3.7 mmoL/L (3.5-5.1); Sodium 141 mmol/L (136-145); Thyroid Stimulating Hormone 3.47 uIU/ml (0.358-3.740); Total Protein,Serum 8.2 gm/dL (6.4-8.2); Triglycerides 108 mg/dL (30-200); VLDL Cholesterol 22 mg/dL (0-40)
[2018-12-13 15:49] LABS: Hemoglobin A1C 4.7 % (0.0-7.0)
[2018-12-14 08:31] LABS: Iron 63 ug/dL (27-159); UIBC 323 ug/dL (131-425)
[2018-12-14 11:18] LABS: Iron Saturation 16 % (15-55); Vitamin B12 574 pg/mL (232-1245); Vitamin D 25 Hydroxy 19.6 ng/mL (30.0-100.0)
[2018-12-14 15:15] LABS: Folate, Hemolysate 418.2 ng/mL (Not Estab.); Hematocrit 34.6 % (34.0-46.6)
[2018-12-14 17:39] LABS: Folate, RBC 1209 ng/mL (>498)
== END ==
PROVIDERS: Visit Provider Nurse Practitioner Family
DX: B15.9 Hepatitis A without hepatic coma (principal); R53.83 Other fatigue; R11.2 Nausea with vomiting, unspecified
CPT/HCPCS: 36415; 80053; 80061; 82140; 82607; 82652; 82728; 82747; 83036; 83540; 83550; 84439; 84443; 85014; 85025

== ENCOUNTER → 2018-12-24 10:13 | Outpatient (CLI) | payer MEDICAID, SELFPAY ==
[2018-12-24 10:37] LABS: Basophils % 0.5 % (0.1-2.0); Eosinophils # 0.2 K/mm3 (0.0-0.4); Eosinophils % 4.6 % (0.1-12.0); Hematocrit 36.7 % (37.0-47.0); Hemoglobin 11.7 g/dL (12.2-16.2); INR 0.99 (0.9-1.1); Lymphocytes # 1.9 K/mm3 (0.7-4.5); Mean Corpuscular Hemoglobin 26.4 pg (27.0-31.2); Mean Corpuscular Volume 82.7 fl (81-99); Mean Platelet Volume 7.7 fl (7.4-10.4); Monocytes # 0.3 K/mm3 (0.1-1.0); Monocytes % 5.7 % (1.7-9.3); Neutrophils # 2.6 K/mm3 (1.8-7.8); Neutrophils % 51.2 % (37.0-80.0); Platelet Count 275 K/mm3 (142-424); Prothrombin Time 10.2 seconds (9.4-11.8); Red Blood Count 4.44 M/mm3 (4.20-5.40); Red Cell Distribution Width 19.6 % (11.5-17.5); White Blood Count 5.1 K/mm3 (4.8-10.8)
[2018-12-24 11:39] LABS: Alanine Aminotransferase 41 U/L (12-78); Albumin Level 3.8 gm/dL (3.4-5.0); Alkaline Phosphatase 103 U/L (46-116); Anion Gap 11.8 mEq/L (5-15); Aspartate Amino Transferase 30 U/L (15-37); Bilirubin,Total 0.9 mg/dL (0.2-1.0); Blood Urea Nitrogen 10 mg/dL (7-18); Carbon Dioxide 28 mmol/L (21.0-32.0); Chloride 105 mmol/L (98-107); Estimated Glomerular Filt Rate 95 ml/min (>60); GFR (African American) 115 ML/MIN (>60); Globulin 3.8 gm/dl (1.3-3.2); Potassium 3.8 mmoL/L (3.5-5.1); Sodium 141 mmol/L (136-145); Total Protein,Serum 7.6 gm/dL (6.4-8.2)
[2018-12-24 12:11] LABS: Glucose 107 mg/dL (74-106)
== END ==
PROVIDERS: Visit Provider Surgery
DX: R11.2 Nausea with vomiting, unspecified (principal)
CPT/HCPCS: 36415; 80053; 85025; 85610

== ENCOUNTER → 2019-02-21 12:19 | Outpatient (CLI) | payer MEDICAID, SELFPAY ==
--- NOTE | 2019-02-21 12:20 | US_ITS ---
US transvaginal HISTORY: Follow-up ovarian cysts ITS.REASON: ovary ORDERING PHYSICIAN: Suzie Roca APRN PATIENT AGE: 38 years Comparison: None FINDINGS: There has been is recommended. The vaginal cuff has an unremarkable appearance. The left ovary measures 3.8 x 2.5 cm and contains a 19 x 14 mm cyst. The right ovary is 3 x 2.5 cm and has an unremarkable appearance. No cul-de-sac fluid evident. IMPRESSION: 19 mm left ovarian cyst Prior hysterectomy
== END ==
PROVIDERS: PCP Nurse Practitioner Family; Visit Provider Nurse Practitioner Family
DX: N83.201 Unspecified ovarian cyst, right side (principal)
CPT/HCPCS: 76830

== ENCOUNTER → 2019-06-05 11:46 | Outpatient (CLI) | payer MEDICAID, SELFPAY ==
--- NOTE | 2019-06-05 11:50 | XR_ITS ---
XR knee LT 3V HISTORY: ITS.REASON: pain ORDERING PHYSICIAN: Suzie Roca APRN PATIENT AGE: 39 years No comparison exams FINDINGS: There are moderate osteoarthritic changes of all 3 compartments greater at the medial compartment and patellofemoral joint. Prominent bony spurring is present medially and at the interspinous region of the proximal tibia. No acute fracture or dislocation. No lytic or blastic change. IMPRESSION: Moderate osteoarthritis of the left knee
== END ==
PROVIDERS: PCP Emergency Medicine; Visit Provider Nurse Practitioner Family
DX: M25.562 Pain in left knee (principal)
CPT/HCPCS: 73562

== ENCOUNTER → 2019-07-09 13:43 | Outpatient (CLI) | payer MEDICAID, SELFPAY ==
[2019-07-09 16:30] LABS: Amphetamine/Metha Screen,Urine Negative ng/mL (<1000); Barbiturates Screen,Urine Negative ng/mL (<200); Benzodiazepines Screen,Urine Negative ng/mL (<200); Cannabinoid Screen,Urine Negative ng/mL (<50); Cocaine Screen,Urine Negative ng/mL (<300); Methadone Screen,Urine Negative ng/mL (<300); Opiate Screen,Urine Negative ng/mL (<300); Phencyclidine Screen,Urine Negative ng/mL (<25)
== END ==
PROVIDERS: Visit Provider Nurse Practitioner Family
DX: Z79.899 Other long term (current) drug therapy (principal)
CPT/HCPCS: 80305

== ENCOUNTER → 2019-07-22 14:44 | Outpatient (POV) | payer MEDICAID, SELFPAY ==
[2019-07-22 14:57] VITALS: BP 132/78; PULSE 85; RESP 18; BMI 36.1
--- NOTE | 2019-07-23 08:42 | HMH.PMCON ---
Assessment and Plan (1) Knee pain Current visit: Yes Status: Chronic Qualifiers: Chronicity: chronic Laterality: left Qualified Code(s): M25.562 - Pain in left knee; G89.29 - Other chronic pain Category: Medical Code(s): M25.569 - Pain in unspecified knee (2) Osteoarthritis of left knee Current visit: No Status: Chronic Qualifiers: Osteoarthritis type: unspecified Qualified Code(s): M17.12 - Unilateral primary osteoarthritis, left knee Category: Medical Code(s): M17.12 - Unilateral primary osteoarthritis, left knee - Assessment and plan all Dx Assessment and Plan for all problems:: Patient is no longer responding to intra-articular knee injections. We will plan a genicular block. Patient understands that this is diagnostic in nature. I will follow-up with the patient after her injection reassess her symptoms at that time she is instructed to call the office if she has any issues prior to her next appointment. Dr. Jimenez has reviewed this note and agrees with this plan of care. This note was dictated using voice recognition software and may contain errors or omissions HPI - Data of Consult Consult date: 07/22/19 Requesting Physician: Macy Pradhan APRN Primary Care Provider: Az Mills MD - Consult Narrative Reason for consult: Left knee pain History of present illness: Ms. Parr is a 39 year old female who presents today for consultation in regards to her left knee pain. Patient had an injury in high school and since then she has had quite a bit of left knee pain. Patient has been given intra-articular injections which use the last 3 to 4 months however recently they are lasting less than 2 weeks. At this time the orthopedic surgeon feels like she needs to wait another 10 years prior to her having her knee replaced. Patient is here to discuss options. She is unable to take NSAIDs due to gastric surgery. She rates her pain today a 7 out of 10. Patient tried and failed physical therapy, home stretching therapy, medications. CC: Macy Pradhan APRN [facility] History I have reviewed the patient's past medical history: Yes Medical History: Reports:: MRSA Denies:: Cancer, Diabetes Mellitus Type 1, Diabetes Mellitus Type 2, Hypertension, Internal Pacemaker, Seizures *Have you ever received a pneumonia vaccine?: Yes *Have you received a flu vaccine this season?: Yes Other Medical History: Reports: Other. Denies: Blood Transfusion Reaction Laterality Cases: Bilateral: Tonsillectomy Other Surgeries: Yes: Appendectomy, Bariatric Surgery, Cholecystectomy, Hysterectomy-Total. No: Pacemaker Amputation: No Fractures: Yes (Tibia) - *Social History Smoking Status: Never smoker Alcohol Intake: never Alcohol Intake Frequency:: holidays/special occasions only Substance Use Type: denies use *Occupational Status:: other Housing: house Household Members: significant other, children *Travel in the last 8 weeks: None Family Hx:: No significant family history Review of Systems - Review of Systems ROS General: no recent weight change, no fever, no sleep disturbances Respiratory: no cough, no shortness of air, no recurring pulmonary infections Cardiovascular/Peripheral Vascular: No chest pain, No palpitations, no edema, no shortness of breath. Gastrointestinal: no incontinence, normal bowel movements reported Genitourinary: no incontinence Musculoskeletal: Left knee pain Psychiatric: normal mood/ affect Neurological: [denies weakness in extremities], [denies balance issues] Meds Home Medications Medication Instructions Recorded Confirmed Type Cholecalciferol (Vitamin D3) 5,000 unit PO DAILY 01/08/19 07/09/19 History [Vitamin D3] Ergocalciferol (Vitamin D2) 50,000 unit PO QWEEK 01/08/19 07/09/19 History [Drisdol] Cetirizine HCl [All Day Allergy 10 mg PO DAILYP PRN 04/17/19 07/09/19 History (cetirizine)] Fluticasone Propionate [Flonase 1 spray INT
--- NOTE | 2019-07-23 08:52 | P.CONS_ITS ---
Assessment and Plan (1) Knee pain Current visit: Yes Status: Chronic Qualifiers: Chronicity: chronic Laterality: left Qualified Code(s): M25.562 - Pain in left knee; G89.29 - Other chronic pain Category: Medical Code(s): M25.569 - Pain in unspecified knee (2) Osteoarthritis of left knee Current visit: No Status: Chronic Qualifiers: Osteoarthritis type: unspecified Qualified Code(s): M17.12 - Unilateral primary osteoarthritis, left knee Category: Medical Code(s): M17.12 - Unilateral primary osteoarthritis, left knee - Assessment and plan all Dx Assessment and Plan for all problems:: Patient is no longer responding to intra-articular knee injections. We will plan a genicular block. Patient understands that this is diagnostic in nature. I will follow-up with the patient after her injection reassess her symptoms at that time she is instructed to call the office if she has any issues prior to her next appointment. Dr. Jimenez has reviewed this note and agrees with this plan of care. This note was dictated using voice recognition software and may contain errors or omissions HPI - Data of Consult Consult date: 07/22/19 Requesting Physician: Macy Pradhan APRN Primary Care Provider: Az Mills MD - Consult Narrative Reason for consult: Left knee pain History of present illness: Ms. Parr is a 39 year old female who presents today for consultation in regards to her left knee pain. Patient had an injury in high school and since then she has had quite a bit of left knee pain. Patient has been given intra- articular injections which use the last 3 to 4 months however recently they are lasting less than 2 weeks. At this time the orthopedic surgeon feels like she needs to wait another 10 years prior to her having her knee replaced. Patient is here to discuss options. She is unable to take NSAIDs due to gastric surgery. She rates her pain today a 7 out of 10. Patient tried and failed physical therapy, home stretching therapy, medications. CC: Macy Pradhan APRN [facility] History I have reviewed the patient's past medical history: Yes Medical History: Reports:: MRSA Denies:: Cancer, Diabetes Mellitus Type 1, Diabetes Mellitus Type 2, Hypertension, Internal Pacemaker, Seizures *Have you ever received a pneumonia vaccine?: Yes *Have you received a flu vaccine this season?: Yes Other Medical History: Reports: Other. Denies: Blood Transfusion Reaction Laterality Cases: Bilateral: Tonsillectomy Other Surgeries: Yes: Appendectomy, Bariatric Surgery, Cholecystectomy, Hysterectomy-Total. No: Pacemaker Amputation: No Fractures: Yes ([place]ia) - *Social History Smoking Status: Never smoker Alcohol Intake: never Alcohol Intake Frequency:: holidays/special occasions only Substance Use Type: denies use *Occupational Status:: other Housing: house Household Members: significant other, children *Travel in the last 8 weeks: None Family Hx:: No significant family history Review of Systems - Review of Systems ROS General: no recent weight change, no fever, no sleep disturbances Respiratory: no cough, no shortness of air, no recurring pulmonary infections Cardiovascular/Peripheral Vascular: No chest pain, No palpitations, no edema, no shortness of breath. Gastrointestinal: no incontinence, normal bowel movements reported Genitourinary: no incontinence Musculoskeletal: Left knee pain Psychiatric: normal mood/ affect Neurological: [denies weakness in extremities], [denies balance issues]
== END ==
PROVIDERS: PCP Emergency Medicine; Visit Provider Clinical Nurse Specialist Family Health
DX: M17.12 Unilateral primary osteoarthritis, left knee (principal)
CPT/HCPCS: 99202

== ENCOUNTER → 2019-08-19 10:55 | Outpatient (POV) | payer OTHER, SELFPAY ==
[2019-08-19 11:40] VITALS: BP 143/78; PULSE 68; O2SAT 99; BMI 29.9
--- NOTE | 2019-08-19 12:23 | HMH.PAINSOAP ---
[facility] Pain Management SOAP Note Subjective:: Patient is a 39-year-old white female who presents today in some distress and discomfort. She rates her pain a 10 out of 10 in her left knee. She underwent a genicular block which aggravated her pain. Patient is limited as to what she can take due to her gastric bypass. No redness at the knee site however there is some swelling. Patient is tearful on examination ROS General: no recent weight change, no fever, no sleep disturbances Respiratory: no cough, no shortness of air, no recurring pulmonary infections Cardiovascular/Peripheral Vascular: No chest pain, No palpitations, no edema, no shortness of breath. Gastrointestinal: no incontinence, normal bowel movements reported Genitourinary: no incontinence Musculoskeletal: Left knee pain Psychiatric: Anxious Neurological: [denies weakness in extremities], [denies balance issues] Objective:: Physical Exam General: Alert and oriented x3, no acute distress, pleasant and cooperative, [on room air] Lungs: Resps E/U, Symmetrical chest expansion, Eyes: PERRL Musculoskeletal: Range of motion left knee guarded secondary to pain, deep tendon reflexes normal, strength in upper and lower extremities [5/5], [abnormal gait noted] Neurological: speech clear, cmv driver equal, no gross sensory deficits Assessment:: Left knee degenerative osteoarthritis, increased pain status post genicular block Plan:: We will call in prednisone 20 mg 1 p.o. twice daily for the patient for 5 days losses start her on gabapentin 100 mg daily we will see her back in 1 week reassess her symptoms at that time she is been instructed to call the office if her pain does not subside. [facility] History I have reviewed the patient's past medical history: Yes Medical History: Reports:: MRSA Denies:: Cancer, Diabetes Mellitus Type 1, Diabetes Mellitus Type 2, Hypertension, Internal Pacemaker, Seizures *Have you ever received a pneumonia vaccine?: Yes *Have you received a flu vaccine this season?: Yes Other Medical History: Reports: Other. Denies: Blood Transfusion Reaction Laterality Cases: Bilateral: Tonsillectomy Other Surgeries: Yes: Appendectomy, Bariatric Surgery, Cholecystectomy, Hysterectomy-Total. No: Pacemaker Amputation: No Fractures: Yes ([place]ia) - *Social History Smoking Status: Never smoker Alcohol Intake: never Alcohol Intake Frequency:: holidays/special occasions only Substance Use Type: denies use *Occupational Status:: other Housing: house Household Members: significant other, children *Travel in the last 8 weeks: None Family Hx:: No significant family history
--- NOTE | 2019-08-19 12:26 | P.CONS_ITS ---
[facility] Pain Management SOAP Note Subjective:: Patient is a 39-year-old white female who presents today in some distress and discomfort. She rates her pain a 10 out of 10 in her left knee. She underwent a genicular block which aggravated her pain. Patient is limited as to what she can take due to her gastric bypass. No redness at the knee site however there is some swelling. Patient is tearful on examination ROS General: no recent weight change, no fever, no sleep disturbances Respiratory: no cough, no shortness of air, no recurring pulmonary infections Cardiovascular/Peripheral Vascular: No chest pain, No palpitations, no edema, no shortness of breath. Gastrointestinal: no incontinence, normal bowel movements reported Genitourinary: no incontinence Musculoskeletal: Left knee pain Psychiatric: Anxious Neurological: [denies weakness in extremities], [denies balance issues] Objective:: Physical Exam General: Alert and oriented x3, no acute distress, pleasant and cooperative, [on room air] Lungs: Resps E/U, Symmetrical chest expansion, Eyes: PERRL Musculoskeletal: Range of motion left knee guarded secondary to pain, deep tendon reflexes normal, strength in upper and lower extremities [5/5], [abnormal gait noted] Neurological: speech clear, manager security equal, no gross sensory deficits Assessment:: Left knee degenerative osteoarthritis, increased pain status post genicular block Plan:: We will call in prednisone 20 mg 1 p.o. twice daily for the patient for 5 days losses start her on gabapentin 100 mg daily we will see her back in 1 week reassess her symptoms at that time she is been instructed to call the office if her pain does not subside. [facility] History I have reviewed the patient's past medical history: Yes Medical History: Reports:: MRSA Denies:: Cancer, Diabetes Mellitus Type 1, Diabetes Mellitus Type 2, Hypertension, Internal Pacemaker, Seizures *Have you ever received a pneumonia vaccine?: Yes *Have you received a flu vaccine this season?: Yes Other Medical History: Reports: Other. Denies: Blood Transfusion Reaction Laterality Cases: Bilateral: Tonsillectomy Other Surgeries: Yes: Appendectomy, Bariatric Surgery, Cholecystectomy, Hysterectomy-Total. No: Pacemaker Amputation: No Fractures: Yes ([place]ia) - *Social History Smoking Status: Never smoker Alcohol Intake: never Alcohol Intake Frequency:: holidays/special occasions only Substance Use Type: denies use *Occupational Status:: other Housing: house Household Members: significant other, children *Travel in the last 8 weeks: None Family Hx:: No significant family history
== END ==
PROVIDERS: PCP Emergency Medicine; Visit Provider Clinical Nurse Specialist Family Health
DX: M17.12 Unilateral primary osteoarthritis, left knee (principal); Z98.890 Other specified postprocedural states
CPT/HCPCS: 99212

== ENCOUNTER → 2019-08-27 10:23 | Outpatient (POV) | payer OTHER, SELFPAY ==
--- NOTE | 2019-08-27 11:05 | HMH.PAINSOAP ---
[facility] Pain Management SOAP Note Subjective:: Patient is a pleasant 39-year-old white female who presents today for follow-up. Patient is being treated for left knee degenerative osteoarthritis. Patient underwent a genicular block of her left knee. Since her injection, patient says she developed severe electrical-like shooting pains to her foot. She says that the pain is ongoing and she is unable to work at this time. She says that she is now feeling like she cannot walk on her left foot. Patient was given 5 days of gabapentin at her last appointment. She says that gabapentin has given her relief, however, she is out of the medication. She would like to resume gabapentin. Patient is also complaining of low back pain with radiation into her left hip She feels that the pain is related to her walking off-center due to left foot pain . Patient says that the pain has not subsided since her genicular block. She is interested in interventional therapies if she cannot get any relief. She rates her pain an 8 out of 10 today. She is continuing with anti-inflammatories and a home stretching program as well. Review of Systems General: No recent weight changes, no fever, no sleep disturbances Respiratory: No cough, no shortness of air, no recurring pulmonary infections Cardiovascular/peripheral vascular: No chest pain, no palpitations, no edema, no shortness of breath Gastrointestinal: No new onset incontinence, normal bowel movements reported Genitourinary: No new onset incontinence Musculoskeletal: Left knee pain, left leg pain, left foot pain Psychiatric: Normal mood/affect Neurological: [Denies weakness in extremities], [denies balance issues] Objective:: Physical exam General: Alert and oriented x3, no acute distress, pleasant and cooperative, [on room air] Lungs: Respirations even and unlabored, symmetrical chest expansion Eyes: PERRL Musculoskeletal: Flexion and extension of [] spine somewhat guarded secondary to pain, deep tendon reflexes normal, strength in upper and lower extremities lumbar, [abnormal gait noted] Neurological: Speech clear, inspector integrated circuits equal, no gross sensory deficit Assessment:: Left knee degenerative osteoarthritis Plan:: We will order the patient gabapentin 100 mg 1 tablet p.o. at bedtime. We will also start the patient on Cymbalta 30 mg 1 tablet p.o. daily. Patient was given spinal cord stimulation information. She will review this. Patient does understand that this is in the event that she does not get relief from conservative therapies. We will also schedule the patient for a left SI joint injection. She does have notable point tenderness noted over her left SI joint. We will see the patient back in the clinic following her injection to see if she gets any relief. She will also continue with anti-inflammatories and home stretching program. The patient's been instructed to contact clinic if she has any concerns before next appointment. Dr. Jimenez has reviewed this note and agrees with this plan of care. This note was dictated using voice recognition software and make contain errors or omissions. [facility] History I have reviewed the patient's past medical history: Yes Medical History: Reports:: MRSA Denies:: Cancer, Diabetes Mellitus Type 1, Diabetes Mellitus Type 2, Hypertension, Internal Pacemaker, Seizures *Have you ever received a pneumonia vaccine?: Yes *Have you received a flu vaccine this season?: Yes Other Medical History: Reports: Other. Denies: Blood Transfusion Reaction Laterality Cases: Bilateral: Tonsillectomy Other Surgeries: Yes: Appendectomy, Bariatric Surgery, Cholecystectomy, Hysterectomy-Total. No: Pacemaker Amputation: No Fractures: Yes ([place]ia) - *Social History Educational Level: Attended High School Smoking Status: Never smoker Alcohol Intake: never Alcohol Intake Frequency:: holidays/special occasions only Substance Use Type: denies use *Occupational Status:: other Housing
--- NOTE | 2019-08-27 11:09 | P.CONS_ITS ---
[facility] Pain Management SOAP Note Subjective:: Patient is a pleasant 39-year-old white female who presents today for follow-up. Patient is being treated for left knee degenerative osteoarthritis. Patient underwent a genicular block of her left knee. Since her injection, patient says she developed severe electrical-like shooting pains to her foot. She says that the pain is ongoing and she is unable to work at this time. She says that she is now feeling like she cannot walk on her left foot. Patient was given 5 days of gabapentin at her last appointment. She says that gabapentin has given her relief, however, she is out of the medication. She would like to resume gabapentin. Patient is also complaining of low back pain with radiation into her left hip She feels that the pain is related to her walking off-center due to left foot pain . Patient says that the pain has not subsided since her genicular block. She is interested in interventional therapies if she cannot get any relief. She rates her pain an 8 out of 10 today. She is continuing with anti-inflammatories and a home stretching program as well. Review of Systems General: No recent weight changes, no fever, no sleep disturbances Respiratory: No cough, no shortness of air, no recurring pulmonary infections Cardiovascular/peripheral vascular: No chest pain, no palpitations, no edema, no shortness of breath Gastrointestinal: No new onset incontinence, normal bowel movements reported Genitourinary: No new onset incontinence Musculoskeletal: Left knee pain, left leg pain, left foot pain Psychiatric: Normal mood/affect Neurological: [Denies weakness in extremities], [denies balance issues] Objective:: Physical exam General: Alert and oriented x3, no acute distress, pleasant and cooperative, [on room air] Lungs: Respirations even and unlabored, symmetrical chest expansion Eyes: PERRL Musculoskeletal: Flexion and extension of [] spine somewhat guarded secondary to pain, deep tendon reflexes normal, strength in upper and lower extremities lumbar, [abnormal gait noted] Neurological: Speech clear, jewel hole rough opener equal, no gross sensory deficit Assessment:: Left knee degenerative osteoarthritis Plan:: We will order the patient gabapentin 100 mg 1 tablet p.o. at bedtime. We will also start the patient on Cymbalta 30 mg 1 tablet p.o. daily. Patient was given spinal cord stimulation information. She will review this. Patient does understand that this is in the event that she does not get relief from conservative therapies. We will also schedule the patient for a left SI joint injection. She does have notable point tenderness noted over her left SI joint. We will see the patient back in the clinic following her injection to see if she gets any relief. She will also continue with anti-inflammatories and home stretching program. The patient's been instructed to contact clinic if she has any concerns before next appointment. Dr. Jimenez has reviewed this note and agrees with this plan of care. This note was dictated using voice recognition software and make contain errors or omissions. [facility] History I have reviewed the patient's past medical history: Yes Medical History: Reports:: MRSA Denies:: Cancer, Diabetes Mellitus Type 1, Diabetes Mellitus Type 2, Hypertension, Internal Pacemaker, Seizures *Have you ever received a pneumonia vaccine?: Yes *Have you received a flu vaccine this season?: Yes Other Medical History: Reports: Other. Denies: Blood Transfusion Reaction Laterality Cases: Bilateral: Tonsillectomy Other Surgeries: Yes: Appendectomy, Bariatric Surgery, Cholecystectomy, Hysterectom
[2019-08-27 11:30] VITALS: BP 159/98; PULSE 99; RESP 18; O2SAT 99; BMI 34.9
== END ==
PROVIDERS: PCP Emergency Medicine; Visit Provider Clinical Nurse Specialist Family Health
DX: M17.12 Unilateral primary osteoarthritis, left knee (principal)
CPT/HCPCS: 99212

== ENCOUNTER → 2019-10-01 11:12 | Outpatient (POV) | payer OTHER, SELFPAY ==
[2019-10-01 11:31] VITALS: BP 129/88; PULSE 95; RESP 18; O2SAT 98; BMI 34.9
--- NOTE | 2019-10-01 13:00 | HMH.PAINSOAP ---
[facility] Pain Management SOAP Note Subjective:: Patient is a pleasant 39-year-old white female who presents today for follow-up after her SI joint injection. Patient states that she is feeling much better in regards to her SI pain however her low back and her left knee is still significantly painful she rates her pain in her left knee an 8 out of 10. We are planning a DRG stimulator trial for her. Patient's failed genicular blocks along with intra-articular injections. Patient's pain is constant she was started on Cymbalta and gabapentin and is doing slightly better with this. We will increase her gabapentin to 300 mg 1 p.o. 3 times daily. Rates her pain today a 7 out of 10 ROS General: no recent weight change, no fever, no sleep disturbances Respiratory: no cough, no shortness of air, no recurring pulmonary infections Cardiovascular/Peripheral Vascular: No chest pain, No palpitations, no edema, no shortness of breath. Gastrointestinal: no new onset incontinence, normal bowel movements reported Genitourinary: no new onset incontinence Musculoskeletal: Back pain, left knee pain Psychiatric: normal mood/ affect, Neurological: [denies new onset weakness in extremities], [denies new onset balance issues] Objective:: Physical Exam General: Alert and oriented x3, no acute distress, pleasant and cooperative, [on room air] Lungs: Resps E/U, Symmetrical chest expansion, Eyes: PERRL Musculoskeletal: Flexion and extension of lumbar spine somewhat guarded secondary to pain, deep tendon reflexes normal, strength in upper and lower extremities [5/5], [abnormal gait noted] range of motion left knee guarded secondary to pain so Neurological: speech clear, rhic systems safety engineer equal, no gross sensory deficits Assessment:: left knee degenerative osteoarthritis, back pain Plan:: We will increase the patient's gabapentin to 300 mg 1 p.o. 3 times daily. We will also order an MRI of her lumbar spine we will also follow-up with her after psychological evaluation for DRG stimulator. She has been instructed to call the office if she has any issues prior to her next appointment. Dr. Jimenez has reviewed this note and agrees with this plan of care. This note was dictated using voice recognition software and may contain errors or omissions [facility] History I have reviewed the patient's past medical history: Yes Medical History: Reports:: MRSA Denies:: Cancer, Diabetes Mellitus Type 1, Diabetes Mellitus Type 2, Hypertension, Internal Pacemaker, Seizures *Have you ever received a pneumonia vaccine?: Yes *Have you received a flu vaccine this season?: Yes Other Medical History: Reports: Other. Denies: Blood Transfusion Reaction Laterality Cases: Bilateral: Tonsillectomy Other Surgeries: Yes: Appendectomy, Bariatric Surgery, Cholecystectomy, Hysterectomy-Total. No: Pacemaker Amputation: No Fractures: Yes (Tibia) - *Social History Smoking Status: Never smoker Alcohol Intake: never Alcohol Intake Frequency:: holidays/special occasions only Substance Use Type: denies use *Occupational Status:: other Housing: house Household Members: significant other, children *Travel in the last 8 weeks: None Family Hx:: No significant family history
--- NOTE | 2019-10-01 13:03 | P.CONS_ITS ---
[facility] Pain Management SOAP Note Subjective:: Patient is a pleasant 39-year-old white female who presents today for follow-up after her SI joint injection. Patient states that she is feeling much better in regards to her SI pain however her low back and her left knee is still significantly painful she rates her pain in her left knee an 8 out of 10. We are planning a DRG stimulator trial for her. Patient's failed genicular blocks along with intra-articular injections. Patient's pain is constant she was started on Cymbalta and gabapentin and is doing slightly better with this. We will increase her gabapentin to 300 mg 1 p.o. 3 times daily. Rates her pain today a 7 out of 10 ROS General: no recent weight change, no fever, no sleep disturbances Respiratory: no cough, no shortness of air, no recurring pulmonary infections Cardiovascular/Peripheral Vascular: No chest pain, No palpitations, no edema, no shortness of breath. Gastrointestinal: no new onset incontinence, normal bowel movements reported Genitourinary: no new onset incontinence Musculoskeletal: Back pain, left knee pain Psychiatric: normal mood/ affect, Neurological: [denies new onset weakness in extremities], [denies new onset balance issues] Objective:: Physical Exam General: Alert and oriented x3, no acute distress, pleasant and cooperative, [on room air] Lungs: Resps E/U, Symmetrical chest expansion, Eyes: PERRL Musculoskeletal: Flexion and extension of lumbar spine somewhat guarded secondary to pain, deep tendon reflexes normal, strength in upper and lower extremities [5/5], [abnormal gait noted] range of motion left knee guarded secondary to pain so Neurological: speech clear, pharmacy coordinator equal, no gross sensory deficits Assessment:: left knee degenerative osteoarthritis, back pain Plan:: We will increase the patient's gabapentin to 300 mg 1 p.o. 3 times daily. We will also order an MRI of her lumbar spine we will also follow-up with her after psychological evaluation for DRG stimulator. She has been instructed to call the office if she has any issues prior to her next appointment. Dr. Jimenez has reviewed this note and agrees with this plan of care. This note was dictated using voice recognition software and may contain errors or omissions [facility] History I have reviewed the patient's past medical history: Yes Medical History: Reports:: MRSA Denies:: Cancer, Diabetes Mellitus Type 1, Diabetes Mellitus Type 2, Hypertension, Internal Pacemaker, Seizures *Have you ever received a pneumonia vaccine?: Yes *Have you received a flu vaccine this season?: Yes Other Medical History: Reports: Other. Denies: Blood Transfusion Reaction Laterality Cases: Bilateral: Tonsillectomy Other Surgeries: Yes: Appendectomy, Bariatric Surgery, Cholecystectomy, Hysterectomy-Total. No: Pacemaker Amputation: No Fractures: Yes (Tibia) - *Social History Smoking Status: Never smoker Alcohol Intake: never Alcohol Intake Frequency:: holidays/special occasions only Substance Use Type: denies use *Occupational Status:: other Housing: house Household Members: significant other, children *Travel in the last 8 weeks: None Family Hx:: No significant family history
== END ==
PROVIDERS: PCP Emergency Medicine; Visit Provider Clinical Nurse Specialist Family Health
DX: M17.12 Unilateral primary osteoarthritis, left knee (principal); M54.9 Dorsalgia, unspecified
CPT/HCPCS: 99212

== ENCOUNTER → 2019-10-08 08:21 | Outpatient (CLI) | payer OTHER, SELFPAY ==
--- NOTE | 2019-10-08 08:22 | MR_ITS ---
PROCEDURE: MR LUMBAR SPINE WO CON CLINICAL INDICATION: BACK PAIN Low back pain left extremity pain COMPARISON: No exams were available for comparison TECHNIQUE: Standard multiplanar multiecho sequences are performed without contrast. 3-D MIP and myelographic images are also rendered and reviewed FINDINGS: Spinal cord ends at the L1 level. There is normal alignment. T12-L1: Unremarkable. L1-L2: Degenerative disc disease with minimal bulging disc and minimal left paracentral disc protrusion along with mild facet and ligamentum hypertrophy and mild left lateral recess narrowing. There is borderline narrowing of the canal at this level but no cauda equina impingement. A Schmorl's node is present along the superior endplate of L2. L2-L3: Mild facet ligamentum hypertrophy with mild bilateral foraminal narrowing. L3-L4: Mild facet and ligamentum hypertrophy with mild bilateral foraminal narrowing. L4-5: Mild facet ligamentum hypertrophy with mild bilateral foraminal narrowing. There is minimal anterolisthesis of L4 of 2 mm. L5-S1: There is mild facet and ligamentum hypertrophy with mild bilateral foraminal narrowing. No extruded herniated disc is evident.. Small right renal cyst is noted medially at 7 mm IMPRESSION: 1. Mild multilevel degenerative changes with facet and ligamentum hypertrophy and mild bilateral foraminal narrowing at multiple levels as detailed above. Please see above for detailed description at each level. 2. L1-L2: Degenerative disc disease with minimal bulging disc and minimal left paracentral disc protrusion along with mild facet and ligamentum hypertrophy and mild left lateral recess narrowing. There is borderline narrowing of the canal at this level but no cauda equina impingement. 3. No extruded herniated disc Dictated by: Mir Geller MD 10/09/2019 12:31 Electronically signed by Mir Geller MD in [place] 10/09/2019 12:31
== END ==
PROVIDERS: PCP Emergency Medicine; Visit Provider Clinical Nurse Specialist Family Health
DX: M54.5 Low back pain (principal); M79.605 Pain in left leg
CPT/HCPCS: 72148; 76376

== ENCOUNTER → 2019-10-21 14:43 | Outpatient (POV) | payer OTHER, SELFPAY ==
[2019-10-21 15:03] VITALS: BP 133/90; PULSE 97; RESP 18; O2SAT 99; BMI 34.1
--- NOTE | 2019-10-21 15:07 | HMH.PAINSOAP ---
[facility] Pain Management SOAP Note Subjective:: Patient is a pleasant 39-year-old black female who presents today for follow-up. She is being treated for low back pain and left knee pain. Patient says that she was started on gabapentin at her last visit and Cymbalta. She says that she got about 20 to 30% relief up with her oral medications. Patient has undergone an SI joint injection in her left SI joint and got 100% relief and is continuing to have relief in that area. Patient does state, however, her pain has now radiated into the right low back area with radiation into her right hip. She says that she is having difficulty standing and walking due to the pain. Patient also has pain in her left knee. She has undergone a genicular block to her left knee, but says following the procedure, she began to develop severe numbness and tingling into her left foot. Patient says this pain has not gone away. She rates her pain a 7 out of 10 today. She is limping with ambulation. She did undergo an MRI of her lumbar spine and would like to discuss results of that today as well. She is continuing with a home stretching program and anti-inflammatories. Patient has tried and failed physical therapy, along with ice and heat therapies. Review of Systems General: No recent weight changes, no fever, no sleep disturbances Respiratory: No cough, no shortness of air, no recurring pulmonary infections Cardiovascular/peripheral vascular: No chest pain, no palpitations, no edema, no shortness of breath Gastrointestinal: No new onset incontinence, normal bowel movements reported Genitourinary: No new onset incontinence Musculoskeletal: Low back pain, left leg pain, left knee pain, right hip pain Psychiatric: Normal mood/affect Neurological: [Denies weakness in extremities], [denies balance issues] Objective:: Physical exam General: Alert and oriented x3, no acute distress, pleasant and cooperative, [on room air] Lungs: Respirations even and unlabored, symmetrical chest expansion Eyes: PERRL Musculoskeletal: Flexion and extension of lumbar spine somewhat guarded secondary to pain, deep tendon reflexes normal, strength in upper and lower extremities [5/5], [abnormal gait noted], positive Carmelina's, positive Walkerton's test, positive distraction test, and positive compression test Neurological: Speech clear, sewer contractor equal, no gross sensory deficit Assessment:: Degenerative disc disease lumbar spine with lumbar radiculopathy symptoms, facet arthropathy, spinal stenosis with neurogenic claudication, sacroiliitis Plan:: Patient does have notable point tenderness over her right SI joint and right trochanteric bursa. We will schedule her for right SI joint injection and right trochanteric bursa injection. If the patient does not get long-term relief with the injections. She now did discuss possible injective therapy to her spine if she does not get full relief. Patient is interested in these therapies. She will continue with anti-inflammatories and a home stretching program. We will see the patient back in clinic following the injections to reassess her symptoms. She has been instructed to contact clinic if she has any concerns before next appointment. Dr. Jimenez has reviewed this note and agrees with this plan of care. This note was dictated using voice recognition software and make contain errors or omissions. [facility] History Medical History: Reports:: MRSA Denies:: Cancer, Diabetes Mellitus Type 1, Diabetes Mellitus Type 2, Hypertension, Internal Pacemaker, Seizures *Have you ever received a pneumonia vaccine?: Yes *Have you received a flu vaccine this season?: Yes Other Medical History: Reports: Other. Denies: Blood Transfusion Reaction Laterality Cases: Bilateral: Tonsillectomy Other Surgeries: Yes: Appendectomy, Bariatric Surgery, Cholecystectomy, Hysterectomy-Total. No: Pacemaker Amputation: No Fractures: Yes (Tibia) - *Social History Smoking Statu
== END ==
PROVIDERS: PCP Emergency Medicine; Visit Provider Clinical Nurse Specialist Family Health
DX: M51.16 Intervertebral disc disorders with radiculopathy, lumbar region (principal); M54.06 Panniculitis affecting regions of neck and back, lumbar region; M48.062 Spinal stenosis, lumbar region with neurogenic claudication; M46.1 Sacroiliitis, not elsewhere classified
CPT/HCPCS: 99212

== ENCOUNTER → 2019-12-02 13:24 | Outpatient (POV) | payer OTHER, SELFPAY ==
[2019-12-02 13:48] VITALS: BP 130/98; PULSE 119; RESP 18; O2SAT 99; BMI 31.6
--- NOTE | 2019-12-02 15:55 | P.CONS_ITS ---
[facility] Pain Management SOAP Note Subjective:: Ms. Parr is a 39 year old female who presents today for follow-up after right SI joint injection. Patient rates her pain a 6 out of 10 in her left knee. Patient had an injury in high school and since then she has had quite a bit of left knee pain. Patient has been given intra-articular injections which use the last 3 to 4 months however recently they are lasting less than 2 weeks. Patient is also had genicular blocks which were ineffective for her knee pain. At this time the orthopedic surgeon feels like she needs to wait another 10 years prior to her having her knee replaced. Patient is here to discuss options. She is unable to take NSAIDs due to gastric surgery. Patient tried and failed physical therapy, home stretching therapy, medications. Patient and I have discussed DRG she is interested in pursuing this. We will move forward with this. She has swelling in that area along with color changes. Is in the medial aspect of her left knee. Patient has had an appropriate psychological evaluation. ROS General: no recent weight change, no fever, no sleep disturbances Respiratory: no cough, no shortness of air, no recurring pulmonary infections Cardiovascular/Peripheral Vascular: No chest pain, No palpitations, no edema, no shortness of breath. Gastrointestinal: no new onset incontinence, normal bowel movements reported Genitourinary: no new onset incontinence Musculoskeletal: Left knee pain Psychiatric: normal mood/ affect Neurological: [denies new onset weakness in extremities], [denies new onset balance issues] Objective:: Physical Exam General: Alert and oriented x3, no acute distress, pleasant and cooperative, [on room air] Lungs: Resps E/U, Symmetrical chest expansion, Eyes: PERRL Musculoskeletal: Range of motion left knee somewhat guarded secondary to pain, deep tendon reflexes normal, strength in upper and lower extremities [5/5], [abnormal gait noted] Neurological: speech clear, senior management consultant equal, no gross sensory deficits Assessment:: Degenerative osteoarthritis left knee, CRPS Plan:: We will schedule the patient for a DRG trial 2 levels for her left knee pain I will follow-up with her after this reassess her symptoms at that time she is been instructed to call the office if she has any issues prior to her next appointment. Dr. Jimenez has reviewed this note and agrees with this plan of care. This note was dictated using voice recognition software and may contain errors or omissions [facility] History I have reviewed the patient's past medical history: Yes Medical History: Reports:: MRSA Denies:: Cancer, Diabetes Mellitus Type 1, Diabetes Mellitus Type 2, Hypertension, Internal Pacemaker, Seizures *Have you ever received a pneumonia vaccine?: Yes *Have you received a flu vaccine this season?: Yes Other Medical History: Reports: Other. Denies: Blood Transfusion Reaction Laterality Cases: Bilateral: Tonsillectomy Other Surgeries: Yes: Appendectomy, Bariatric Surgery, Cholecystectomy, Hysterectomy-Total. No: Pacemaker Amputation: No Fractures: Yes (Tibia) - *Social History Smoking Status: Never smoker Alcohol Intake: never Alcohol Intake Frequency:: holidays/special occasions only Substance Use Type: denies use *Occupational Status:: other Housing: house Household Members: significant other, children *Travel in the last 8 weeks: None Family Hx:: No significant family history
== END ==
PROVIDERS: PCP Emergency Medicine; Visit Provider Clinical Nurse Specialist Family Health
DX: M17.0 Bilateral primary osteoarthritis of knee (principal); Z86.14 Personal history of Methicillin resistant Staphylococcus aureus infection
CPT/HCPCS: 99212

== ENCOUNTER → 2019-12-11 12:21 | Outpatient (CLI) | payer OTHER, SELFPAY ==
[2019-12-11 13:01] LABS: Basophils % 0.1 % (0.1-2.0); Eosinophils # 0.2 K/mm3 (0.0-0.4); Eosinophils % 1.9 % (0.1-12.0); Hematocrit 33.7 % (37.0-47.0); Hemoglobin 10.9 g/dL (12.2-16.2); Lymphocytes # 1.9 K/mm3 (0.7-4.5); Mean Corpuscular HGB Conc 32.5 g/dL (31.8-35.4); Mean Corpuscular Hemoglobin 27.5 pg (27.0-31.2); Mean Corpuscular Volume 84.6 fl (81-99); Monocytes # 0.4 K/mm3 (0.1-1.0); Monocytes % 4.8 % (1.7-9.3); Neutrophils # 5.3 K/mm3 (1.8-7.8); Neutrophils % 68.2 % (37.0-80.0); Platelet Count 271 K/mm3 (142-424); Red Blood Count 3.98 M/mm3 (4.20-5.40); Red Cell Distribution Width 13.9 % (11.5-17.5); White Blood Count 7.8 K/mm3 (4.8-10.8)
[2019-12-11 14:03] LABS: Anion Gap 12.9 mEq/L (5-15); Blood Urea Nitrogen 10 mg/dL (7-18); Calcium 8.4 mg/dL (8.5-10.1); Carbon Dioxide 26 mmol/L (21.0-32.0); Chloride 106 mmol/L (98-107); Creatinine,Serum 0.65 mg/dL (0.55-1.02); Estimated Glomerular Filt Rate 103 ml/min (>60); GFR (African American) 124 ML/MIN (>60); Glucose 65 mg/dL (74-106); Potassium 3.9 mmoL/L (3.5-5.1); Sodium 141 mmol/L (136-145)
== END ==
PROVIDERS: Visit Provider Clinical Nurse Specialist Family Health
DX: Z01.818 Encounter for other preprocedural examination (principal)
CPT/HCPCS: 36415; 80048; 85025

== ENCOUNTER → 2019-12-17 14:01 | Outpatient (POV) | payer OTHER, SELFPAY ==
[2019-12-17 15:01] VITALS: BP 117/99; PULSE 106; RESP 18; O2SAT 99; BMI 31.6
--- NOTE | 2019-12-24 08:44 | HMH.PMPROC ---
- Procedure Date: 12/17/19 Time: 15:35 Anesthesiologist:: Macy Pradhan APRN Complications:: None Pre-procedure Diagnosis:: CRPS type II Post-procedure Diagnosis:: Same Indications for Procedure:: Ms. Parr is a 39 year old female who presents today for follow-up after right SI joint injection. Patient rates her pain a 6 out of 10 in her left knee. Patient had an injury in high school and since then she has had quite a bit of left knee pain. Patient has been given intra-articular injections which use the last 3 to 4 months however recently they are lasting less than 2 weeks. Patient is also had genicular blocks which were ineffective for her knee pain. At this time the orthopedic surgeon feels like she needs to wait another 10 years prior to her having her knee replaced. Patient is following up after DRG trial. Patient got 90% relief throughout the trial. Patient saw decrease in her swelling and her color changes and temperature changes in that extremity and the left knee. She was able to complete activities of daily living much easier. Overall it was a successful trial. Physical Exam General: Alert and oriented x3, no acute distress, pleasant and cooperative, [on room air] Lungs: Resps E/U, Symmetrical chest expansion, Eyes: PERRL Musculoskeletal: range of motion left knee somewhat guarded secondary to pain, deep tendon reflexes normal, strength in upper and lower extremities [5/5], [abnormal gait noted] Neurological: speech clear, veterinary assistant equal, no gross sensory deficits Procedure Details:: After informed consent was obtained the risk and benefits of the procedure were explained to the patient. Patient's vital signs were monitored with noninvasive blood pressure cuff and pulse oximeter. Patient's tape was removed on her back. The area in which her leads entered was examined to ensure no redness or draining. Patient leads were then removed in sterile fashion. Patient then had Band-Aids placed over the puncture sites. Patient tolerated the procedure well. Plan and Disposition:: Patient had a successful DRG trial. We will move forward with a permanent placement. Patient has had a an appropriate psychological evaluation. Dr. Jimenez has reviewed this note and agrees with this plan of care. This note was dictated using voice recognition software and may contain errors or omissions
--- NOTE | 2020-01-13 08:39 | PC.NURSE ---
tramadol 50mg tid #[id number] called into [facility] pharmacy per provider order
--- NOTE | 2020-02-10 10:48 | PC.NURSE ---
TRAMADOL 50MG TID WITH 1 REFILL CALLED INTO [facility] PER PROVIDER ORDER
== END ==
PROVIDERS: PCP Emergency Medicine; Visit Provider Clinical Nurse Specialist Family Health
DX: G57.70 Causalgia of unspecified lower limb (principal); M46.1 Sacroiliitis, not elsewhere classified; M70.61 Trochanteric bursitis, right hip
CPT/HCPCS: 99212

== ENCOUNTER → 2020-03-06 10:04 | Outpatient (CLI) | payer OTHER, SELFPAY ==
--- NOTE | 2020-03-06 10:13 | XR_ITS ---
PROCEDURE: XR KNEE RT 4V CLINICAL INDICATION: AP, Lateral, [place], [place] WB Right knee pain COMPARISON: XR KNEE RT 3V from 02/10/2020 FINDINGS: There are moderate osteoarthritic changes of the medial compartment and patellofemoral joint. No fracture or dislocation No lytic or blastic change. Other findings:Prominent osteophytes are present at the patellofemoral region laterally and at the medial aspect of the distal femur. IMPRESSION: Moderate osteoarthritic changes. Overall no significant change from 02/10/2020 Dictated by: Mir Geller MD 03/06/2020 11:45 Electronically signed by Mir Geller MD in [place] 03/06/2020 11:45
== END ==
PROVIDERS: PCP Emergency Medicine; Visit Provider Orthopaedic Surgery
DX: M25.561 Pain in right knee (principal)
CPT/HCPCS: 73564

== ENCOUNTER → 2020-04-08 08:20 | Outpatient (CLI) | payer OTHER, SELFPAY ==
--- NOTE | 2020-04-08 08:21 | MR_ITS ---
PROCEDURE: MR KNEE RT WO CON CLINICAL INDICATION: Rt knee pain Right medial knee pain and swelling COMPARISON: XR KNEE RT 4V from 03/06/2020 TECHNIQUE: Routine multiplanar multi echo sequences are performed without gadolinium enhancement. FINDINGS: Cruciate ligaments, collateral ligaments, patellar tendon, and quadriceps tendon appear intact. There is mild generalized motion artifact which does obscure fine detail. This is present despite repeating several sequences. There is some thinning of the patellar cartilage with some irregularity of the cartilage. There is abnormal signal intensity within the mid aspect of the body of the medial meniscus as seen on sagittal image 21 series 4 and 6 coronal image 18 series 10 this communicates with the tibial articular surface. The lateral meniscus has an unremarkable appearance. There are tricompartmental osteoarthritic changes greater at the medial compartment and patellofemoral joint. There is some subchondral edema noted along the medial aspect of the proximal tibia. There is a small knee joint effusion. There is a prominent osteophyte along the posterior and proximal aspect of the tibia slightly medial IMPRESSION: There does appear to be a small rent/tear within the inferior and central aspect of the body of the medial meniscus communicating with the tibial articular surface. The Tricompartmental osteoarthritic change with knee joint effusion Thinning of the patellar cartilage with irregularity of the patellar cartilage consistent with chondromalacia patella. There are osteoarthritic changes at the patellofemoral joint Dictated by: Mir Geller MD 04/14/2020 09:55 Electronically signed by Mir Gelelr MD in [place] 04/14/2020 09:55
== END ==
PROVIDERS: PCP Emergency Medicine; Visit Provider Orthopaedic Surgery
DX: M25.561 Pain in right knee (principal)
CPT/HCPCS: 73721

== ENCOUNTER 2020-04-22 12:27 | Emergency (ER) | payer OTHER, SELFPAY ==
[2020-04-22 12:42] VITALS: BP 141/92; PULSE 111; RESP 18; TEMP 36.8; O2SAT 100; BMI 36.4
--- NOTE | 2020-04-22 12:50 | CT_ITS ---
PROCEDURE: CT ABDOMEN PELVIS W CON CLINICAL INDICATION: CONSTIPATION AND NO GAS FOLLOWING SURGERY Constipation, nausea COMPARISON: ABDPELW CT abdomen pelvis w con from 04/18/2019 TECHNIQUE: IV Contrast: 75ML OPTIRAY 350 Oral Contrast 20ml Gastroview Axial images obtained with sagittal and coronal reformats. All CT scans at the facility use one or more dose reduction, viz: automated exposure control, ma/kV adjustment per patient size (including targeted exams where dose is matched to indication, i.e. head), or iterative reconstruction technique. FINDINGS: LOWER THORAX: Atelectatic changes are present in the lung bases ABDOMEN & PELVIS: Prior cholecystectomy. Ill-defined area of decreased attenuation is present in the mid aspect of the spleen at 5 mm nonspecific. There has been prior gastric surgery. The adrenal glands, pancreas, and kidneys have an unremarkable appearance. There are few scattered retroperitoneal lymph nodes. There is a moderate amount of retained colonic feces. There is some minimal stranding of the pericolic fat in the right mid abdominal region. Prior appendectomy. Prior hysterectomy. There is a small amount fluid in the pelvis. There is scattered small mesenteric lymph nodes.. No acute bony findings. There is some mild stranding the abdominal wall fat in the right lateral and lower abdominal region IMPRESSION: There is a moderate amount of retained colonic feces. There is some minimal infiltration of the pericolic fat in the proximal transverse colon region. The etiology is indeterminate possibly due to colitis or other inflammatory changes of the peritoneum.. Scattered small nodes are present in the mesenteries and retroperitoneum not significantly changed. Dictated by: Mir Geller MD 04/22/2020 15:53 Electronically signed by Mir Geller MD in [place] 04/22/2020 15:53
--- NOTE | 2020-04-22 13:03 | PC.NURSE ---
FINISHED PO CONTRAST AND RADIOLOGY NOTIFIED
[2020-04-22 13:28] LABS: Basophils % 0.5 % (0.1-2.0); Eosinophils # 0.5 K/mm3 (0.0-0.4); Eosinophils % 7.1 % (0.1-12.0); Hemoglobin 10.9 g/dL (12.2-16.2); Lymphocytes # 2.1 K/mm3 (0.7-4.5); Lymphocytes % 31.4 % (10-50); Mean Corpuscular HGB Conc 32.1 g/dL (31.8-35.4); Mean Corpuscular Hemoglobin 25.9 pg (27.0-31.2); Mean Corpuscular Volume 80.6 fl (81-99); Monocytes # 0.3 K/mm3 (0.1-1.0); Monocytes % 3.8 % (1.7-9.3); Neutrophils # 3.8 K/mm3 (1.8-7.8); Neutrophils % 57.4 % (37.0-80.0); Platelet Count 469 K/mm3 (142-424); Red Blood Count 4.22 M/mm3 (4.20-5.40); Red Cell Distribution Width 14.8 % (11.5-17.5); White Blood Count 6.5 K/mm3 (4.8-10.8)
[2020-04-22 13:40] LABS: Alanine Aminotransferase 17 U/L (12-78); Aspartate Amino Transferase 25 U/L (14-36); Blood Urea Nitrogen 9 mg/dl (7-17); Creatinine Clearance Estimated 171 mL/min (50-200); Estimated Glomerular Filt Rate 94 ml/min (>60); GFR (African American) 113 ML/MIN (>60)
[2020-04-22 13:41] LABS: Albumin Level 4.2 g/dl (3.5-5.0); Albumin/Globulin Ratio 1.3 (1.1-1.8); Globulin 3.3 g/dL (1.3-3.2); Lipase 28 U/L (23-300); Total Protein,Serum 7.5 g/dl (6.3-8.2)
[2020-04-22 13:42] LABS: Amylase < 30 U/L (30-110)
[2020-04-22 14:03] LABS: Alkaline Phosphatase 87 U/L (38-126); Calcium 9.7 mg/dl (8.4-10.2); Glucose 126 mg/dl (74-100)
[2020-04-22 14:06] LABS: Carbon Dioxide 30 mmol/L (22.0-30.0); Chloride 101 mmol/L (98-107); Sodium 137 mmol/L (136-145)
--- NOTE | 2020-04-22 14:10 | HMH.EDGENADL ---
ED Disposition Clinical Impression: Constipation Qualifiers: Constipation type: drug induced constipation Qualified Code(s): K59.03 - Drug induced constipation Disposition: Home, Self-Care Condition on Discharge: Fair Instructions: DI for Constipation Additional Instructions: MiraLAX as prescribed. Call Dr. Mills's office tomorrow for follow-up. Additional instructions for ABDOMINAL PAIN: See your physician as soon as possible for further evaluation. Return immediately if worsening abdominal pain, vomiting, shortness of breath, fever, vomiting of blood or abdominal distention. Prescriptions: polyethylene glycoL 3350 [Miralax 17gm Packet] 17 gm PO DAILY #5 packet Transmission Status: Received by [facility] Referrals: Az Mills MD [Primary Care Provider] - - Critical Care Critical Care Time: No Attestation: On 04/22/20, the high probability of a clinically significant, sudden or life threatening deterioration of the following system(s) required my full and direct attention, intervention and personal management. The time I documented below is in addition to time spent performing reported procedures but includes the following listed in this critical care notation. Medical Decision Making - Medical Records Medical records reviewed: Yes: I reviewed the patient's medical records. - Amari Inquiry Pt receiving controlled substance: No Vital Signs: 04/22/20 12:42 04/22/20 16:55 Temperature 98.3 F 98.3 F Temperature Source Oral Oral Pulse Rate 79 Pulse Rate [Right Radial] 111 H Respiratory Rate 18 18 Blood Pressure 124/77 Blood Pressure [Right Arm] 141/92 H Blood Pressure Mean [Right Arm] 108 Blood Pressure Source Automatic Cuff Blood Pressure Source [Right Arm] Automatic Cuff Blood Pressure Position Sitting Blood Pressure Position [Right Arm] Sitting 02 Sat by Pulse Oximetry 100 Oxygen Delivery Method Room Air Room Air - Lab Data Lab results reviewed: Yes: I reviewed the patient's lab results. Lab Results 04/22/20 13:15: WBC 6.5, RBC 4.22, Hgb 10.9 L, Hct 34.0 L, MCV 80.6 L, MCH 25.9 L, MCHC 32.1, RDW 14.8, Plt Count 469 H, MPV 8.0, Neut % (Auto) 57.4, Lymph % (Auto) 31.4, [place] % (Auto) 3.8, Eos % (Auto) 7.1, Baso % (Auto) 0.5, Neut # (Auto) 3.8, Lymph # (Auto) 2.1, [place] # (Auto) 0.3, Eos # (Auto) 0.5 H, Baso # (Auto) 0.0 04/22/20 13:15: Sodium 137, Potassium 4.0, Chloride 101, Carbon Dioxide 30, Anion Gap 10.0, BUN 9, Creatinine 0.70, Estimated Creat Clear 171, Estimated GFR 94, Est GFR ( Amer) 113, Glucose 126 H, Calcium 9.7, Total Bilirubin 1.0, AST 25, ALT 17, Alkaline Phosphatase 87, Total Protein 7.5, Albumin 4.2, Globulin 3.3 H, Albumin/Globulin Ratio 1.3, Amylase < 30 L, Lipase 28 Result diagrams: 04/22/20 13:15 04/22/20 13:15 Orders (Tests/Meds): ED MEDICATIONS Discontinued Medications Generic Name Dose Route Start Last Admin Trade Name Freq PRN Reason Stop Dose Admin Diatrizoate Meglum/Diatrizoate Sod 20 ml 04/22/20 15:15 04/22/20 15:16 Rad-Gastrografin (66%-10%);120ml PO 04/22/20 15:16 20 ml ONCE ONE Administration Sodium Chloride 1,000 mls @ 999 mls/hr 04/22/20 12:52 04/22/20 12:58 Sod Chlor 0.9% 1000ml Bag IV 04/22/20 13:52 999 mls/hr .Q1H1M ONE Administration Ioversol 75 ml 04/22/20 15:14 04/22/20 15:15 Rad-Optiray 350 100ml Vial IV 04/22/20 15:15 75 ml ONCE ONE Administration Protocol Sodium Chloride 10 ml 04/22/20 15:14 04/22/20 15:15 Rad-Saline Flush 10ml Syringe IV 04/22/20 15:15 10 ml ONCE ONE Administration - CT Data CT Scan: Abdomen, Pelvis Time Received: 16:[address] Reviewed: Yes: I have viewed the radiologist's interpretation Findings Narrative: PROCEDURE: CT ABDOMEN PELVIS W CON CLINICAL INDICATION: CONSTIPATION AND NO GAS FOLLOWING SURGERY Constipation, nausea COMPARISON: ABDPELW CT abdomen pelvis w con from 04/18/2019 TECHNIQUE: IV Contrast: 75ML OPTIR
[2020-04-22 16:55] VITALS: BP 124/77; PULSE 79; RESP 18; TEMP 36.8; O2SAT 100
== END 2020-04-22 16:56 | disposition home or self-care (01) ==
PROVIDERS: Emergency Provider Emergency Medicine; PCP Emergency Medicine
DX: K59.03 Drug induced constipation (principal); Z96.651 Presence of right artificial knee joint; Z98.84 Bariatric surgery status; Z88.0 Allergy status to penicillin; K21.9 Gastro-esophageal reflux disease without esophagitis; Z90.09 Acquired absence of other part of head and neck
CPT/HCPCS: 74177; 80053; 82150; 83690; 85025; 96365; 99283; Q9967

== ENCOUNTER → 2020-07-07 11:54 | Outpatient (CLI) | payer OTHER, SELFPAY ==
--- NOTE | 2020-07-07 11:58 | CA_ITS ---
APPROVED REPORT Left Lower Extremity Venous Study for DVT. Lead C Developer: ROBBY Indications Lower Extremity Pain: Left Risk Factors Post OP POST OP LEFT TOTAL KNEE APPROX 1 WEEK Vein Imaging CFV (L): compressive, spontaneous, phasic, augmentation SFJ (L): compressive, spontaneous, phasic, augmentation FEM (L): compressive, spontaneous, phasic, augmentation POP (L): compressive, spontaneous, phasic, augmentation PTV (L): Compressible GSV (L): Compressible Peroneals (L):Compressible GAS (L): Compressible Findings No evidence of DVT or superficial thrombophlebitis in the veins scanned of the left lower extremity. Conclusion No evidence of DVT or superficial thrombophlebitis in the veins scanned of the left lower extremity. Electronically signed by : Mir Geller MD 07/07/2020 16:23:03
[2020-07-07 13:40] LABS: Erythrocyte Sedimentation Rate 61 mm/hr (0-20)
== END ==
PROVIDERS: PCP Emergency Medicine; Visit Provider Orthopaedic Surgery
DX: M79.662 Pain in left lower leg (principal); M17.12 Unilateral primary osteoarthritis, left knee
CPT/HCPCS: 36415; 85651; 86140; 93971

== ENCOUNTER 2020-08-20 10:30 | Outpatient (RCR) | payer OTHER, SELFPAY | END 2020-08-20 10:35 | disposition home or self-care (01) | LOC: PT 10:30 | PROVIDERS: PCP Emergency Medicine; Visit Provider Orthopaedic Surgery | DX: M25.562 Pain in left knee (principal); Z96.652 Presence of left artificial knee joint | CPT/HCPCS: 97163 ==

== ENCOUNTER 2020-08-31 13:21 | Emergency (ER) | payer OTHER, SELFPAY ==
[2020-08-31 13:22] VITALS: BP 139/96; PULSE 112; RESP 23; TEMP 37.2; O2SAT 100; BMI 36.3
[2020-08-31 13:31] VITALS: BMI 36.0
--- NOTE | 2020-08-31 13:31 | HMH.EDGENADL ---
ED Disposition Clinical Impression: Acute viral syndrome Disposition: Home, Self-Care Condition on Discharge: Good Additional Instructions: You were seen on an emergency basis. It is very important that you follow up with your primary care provider and/or specialist as we discussed within 2 days. All labs and imaging were obtained and interpreted here to rule out life threatening emergencies, but your final results should be reviewed by your primary doctor at your follow up appointment. Please return to the emergency department if any of your symptoms worsen, or if they do not improve as we discussed. Referrals: Az Mills MD [Primary Care Provider] - - Critical Care Critical Care Time: No Attestation: On , the high probability of a clinically significant, sudden or life threatening deterioration of the following system(s) required my full and direct attention, intervention and personal management. The time I documented below is in addition to time spent performing reported procedures but includes the following listed in this critical care notation. Medical Decision Making - Medical Records Medical records reviewed: Yes: I reviewed the patient's medical records. - Amari Inquiry Pt receiving controlled substance: No Vital Signs: 08/31/20 13:22 08/31/20 14:20 08/31/20 14:49 Temperature 99 F Temperature Source Oral Pulse Rate [Apical] 112 H 86 90 Respiratory Rate 23 Blood Pressure [Right Arm] 139/96 H 126/83 132/81 Blood Pressure Mean [Right Arm] 110 97 98 Blood Pressure Source [Right Arm] Automatic Cuff Automatic Cuff Blood Pressure Position [Right Arm] Sitting Sitting 02 Sat by Pulse Oximetry 100 100 100 Oxygen Delivery Method Room Air Room Air - Lab Data Lab Results 08/31/20 13:35: WBC 7.4, RBC 5.10, Hgb 12.3, Hct 39.0, MCV 76.5 L, MCH 24.1 L, MCHC 31.5 L, RDW 14.6, Plt Count 449 H, MPV 8.2, Neut % (Auto) 62.7, Lymph % (Auto) 28.0, [place] % (Auto) 6.4, Eos % (Auto) 2.5, Baso % (Auto) 0.4, Neut # (Auto) 4.6, Lymph # (Auto) 2.1, [place] # (Auto) 0.5, Eos # (Auto) 0.2, Baso # (Auto) 0.0 08/31/20 13:35: Sodium 140, Potassium 3.9, Chloride 107, Carbon Dioxide 24, Anion Gap 12.9, BUN 9, Creatinine 0.60, Estimated Creat Clear 209, Estimated GFR 112, Est GFR ( Amer) 135, Glucose 103 H, Calcium 9.8, Total Bilirubin 0.6, AST 28, ALT 21, Alkaline Phosphatase 74, Total Protein 8.0, Albumin 4.6, Globulin 3.4 H, Albumin/Globulin Ratio 1.4 08/31/20 13:35: Influenza Type A Ag Negative, Influenza Type B Ag Negative 08/31/20 13:35: SARS-CoV-2 IgG Ab (Rapid) Negative, SARS-CoV-2 IgM Ab (Rapid) Negative Result diagrams: 08/31/20 13:35 08/31/20 13:35 Orders (Tests/Meds): ED MEDICATIONS Discontinued Medications Generic Name Dose Route Start Last Admin Trade Name Freq PRN Reason Stop Dose Admin Ioversol 75 ml 08/31/20 13:58 08/31/20 13:59 Ioversol-350 (74%) 100ml Vial IV 08/31/20 13:59 75 ml ONCE ONE Administration Protocol Sodium Chloride 10 ml 08/31/20 13:58 08/31/20 13:59 Sodium Chloride 0.9% 10ml Syr (Rad Only) IV 08/31/20 13:59 10 ml ONCE ONE Administration Sodium Chloride 50 ml 08/31/20 13:58 08/31/20 13:59 0.9 % Sodium Chloride 50 Ml Vial IV 08/31/20 13:59 50 ml ONCE ONE Administration ORDERS Category Date Time Status Covid-19 Nasal PCR ([facility]) Routine Lab 08/31/20 13:35 Received Medical Decision Narrative: 40-year-old female presenting with viral syndrome and tachycardic on arrival. She is status post recent knee replacement. Nontoxic, afebrile here, hemodynamically stable, oxygenating well on room air. Heart rate normalized without intervention here. Influenza negative. Covid PCR pending. White blood cell count, glucose, electrolytes, transaminases are nonactionable. CT PE protocol negative for acute disease including pneumonia, pneumothorax, pulmonary embolism. Patient given symptomatic care precautions as well as quarantine pre
--- NOTE | 2020-08-31 13:32 | CT_ITS ---
PROCEDURE: CT ANGIO CHEST CLINCIAL INDICATION: soa Shortness of air, recent surgery COMPARISON: No exams were available for comparison TECHNIQUE: IV Contrast: 70ML OPTIRAY 350 Axial images obtained with sagittal and coronal reformats. All CT scans at the facility use one or more dose reduction, viz: automated exposure control, ma/kV adjustment per patient size (including targeted exams where dose is matched to indication, i.e. head), or iterative reconstruction technique. FINDINGS: HEART AND MEDIASTINAL STRUCTURES: No evidence of aortic aneurysm or dissection. No evidence of pulmonary embolus. No mediastinal or hilar mass or adenopathy. LUNGS AND PLEURAL SPACES: 3 mm noncalcified nodules present in the right middle lobe. Calcified granuloma is also present in the right middle lobe. There is a small bleb in the right lung base posterior laterally no lobar consolidation or collapse. BONY STRUCTURES: No acute bony abnormalities apparent. UPPER ABDOMEN: There has been a prior gastric bypass ADDITIONAL FINDINGS: No acute finding. No evidence of pulmonary embolus or aortic aneurysm or dissection. IMPRESSION: No acute finding. No evidence of pulmonary embolus. Nonacute findings as described above. Dictated by: Mir Geller MD 08/31/2020 14:33 Mir Geller MD in [place] 08/31/2020 14:33
--- NOTE | 2020-08-31 13:53 | PC.NURSE ---
pt to rad.
[2020-08-31 14:00] LABS: Chloride 107 mmol/L (98-107); Potassium 3.9 mmoL/L (3.5-5.1); Sodium 140 mmol/L (136-145)
[2020-08-31 14:02] LABS: Alanine Aminotransferase 21 U/L (12-78); Blood Urea Nitrogen 9 mg/dl (7-17); Creatinine Clearance Estimated 209 mL/min (50-200); Estimated Glomerular Filt Rate 112 ml/min (>60); GFR (African American) 135 ML/MIN (>60)
[2020-08-31 14:03] LABS: Albumin Level 4.6 g/dl (3.5-5.0); Albumin/Globulin Ratio 1.4 (1.1-1.8); Alkaline Phosphatase 74 U/L (38-126); Anion Gap 12.9 mEq/L (5-15); Aspartate Amino Transferase 28 U/L (14-36); Bilirubin,Total 0.6 mg/dl (0.2-1.3); Calcium 9.8 mg/dl (8.4-10.2); Carbon Dioxide 24 mmol/L (22.0-30.0); Globulin 3.4 g/dL (1.3-3.2); Glucose 103 mg/dl (74-100)
[2020-08-31 14:20] VITALS: BP 126/83; PULSE 86; O2SAT 100
--- NOTE | 2020-08-31 14:20 | PC.NURSE ---
Pt returned from rad.
[2020-08-31 14:33] LABS: Basophils % 0.4 % (0.1-2.0); Eosinophils # 0.2 K/mm3 (0.0-0.4); Eosinophils % 2.5 % (0.1-12.0); Hemoglobin 12.3 g/dL (12.2-16.2); Lymphocytes # 2.1 K/mm3 (0.7-4.5); Mean Corpuscular HGB Conc 31.5 g/dL (31.8-35.4); Mean Corpuscular Hemoglobin 24.1 pg (27.0-31.2); Mean Corpuscular Volume 76.5 fl (81-99); Mean Platelet Volume 8.2 fl (7.4-10.4); Monocytes # 0.5 K/mm3 (0.1-1.0); Monocytes % 6.4 % (1.7-9.3); Neutrophils # 4.6 K/mm3 (1.8-7.8); Neutrophils % 62.7 % (37.0-80.0); Platelet Count 449 K/mm3 (142-424); Red Cell Distribution Width 14.6 % (11.5-17.5); White Blood Count 7.4 K/mm3 (4.8-10.8)
[2020-08-31 14:38] LABS: Coronavirus 19 IgG Antibody Negative (Negative); Coronavirus 19 IgM Antibody Negative (Negative)
[2020-08-31 14:49] VITALS: BP 132/81; PULSE 90; O2SAT 100
[2020-08-31 14:59] VITALS: BP 126/70; PULSE 88; RESP 18; TEMP 36.7; O2SAT 100
== END 2020-08-31 15:00 | disposition home or self-care (01) ==
PROVIDERS: Emergency Provider Physician Assistant; PCP Emergency Medicine
DX: U07.1 COVID-19 (principal); K21.9 Gastro-esophageal reflux disease without esophagitis; Z79.899 Other long term (current) drug therapy; Z88.0 Allergy status to penicillin
CPT/HCPCS: 71275; 80053; 85025; 86328; 87275; 87276; 99283; Q9967; U0003

== ENCOUNTER → 2020-10-15 13:03 | Outpatient (POV) | payer OTHER, SELFPAY ==
--- NOTE | 2020-10-15 13:29 | HMH.PAINSOAP ---
[facility] Pain Management SOAP Note Subjective:: Patient is a pleasant 40-year-old white female who presents today for follow-up. Patient since her last visit has had bilateral knee replacements. She is still healing from this. She is going to physical therapy weekly. Patient rates her pain today a 2 out of 10 her biggest complaint today is numbness and tingling. Patient is on gabapentin and tramadol which controls this well. Patient and I discussed increasing her gabapentin temporarily. She agrees. She denies any side effects to it. [facility] #[id number] reviewed and appropriate. ROS General: no recent weight change, no fever, no sleep disturbances Respiratory: no cough, no shortness of air, no recurring pulmonary infections Cardiovascular/Peripheral Vascular: No chest pain, No palpitations, no edema, no shortness of breath. Gastrointestinal: no new onset incontinence, normal bowel movements reported Genitourinary: no new onset incontinence Musculoskeletal: Left-sided pain, numbness tingling, left knee pain Psychiatric: normal mood/ affect Neurological: [denies new onset weakness in extremities], [denies new onset balance issues] Objective:: Physical Exam General: Alert and oriented x3, no acute distress, pleasant and cooperative, [on room air] Lungs: Resps E/U, Symmetrical chest expansion, Eyes: PERRL Musculoskeletal: Flexion and extension of lumbar spine somewhat guarded secondary to pain, deep tendon reflexes normal, strength in upper and lower extremities [5/5], [abnormal gait noted] Neurological: speech clear, manager drug safety equal, no gross sensory deficits Assessment:: CRPS type II, knee pain, neuropathy Plan:: We will increase the patient's gabapentin to 300 mg 1 p.o. 4 times daily. We will continue her tramadol 50 mg 1 p.o. 3 times daily. I will follow-up with her in 2 months reassess her symptoms at that time she has been instructed to call the office if she has any issues prior to her next appointment. Dr. Jimenez has reviewed this note and agrees with this plan of care. This note was dictated using voice recognition software and may contain errors or omissions [facility] History I have reviewed the patient's past medical history: Yes Medical History: Reports:: Cancer, Gastroesophageal Reflux Disease(GERD), Hepatitis, MRSA Denies:: Diabetes Mellitus Type 1, Diabetes Mellitus Type 2, Hypertension, Internal Pacemaker, Seizures *Have you ever received a pneumonia vaccine?: Yes *Have you received a flu vaccine this season?: No Other Medical History: Reports: Other. Denies: Blood Transfusion Reaction Laterality Cases: Bilateral: Tonsillectomy Other Surgeries: Yes: Appendectomy, Bariatric Surgery, Cholecystectomy, Hysterectomy-Total, Hysterectomy-Partial. No: Pacemaker Amputation: No Fractures: Yes (Tibia) - *Social History Smoking Status: Never smoker Alcohol Intake: never Alcohol Intake Frequency:: holidays/special occasions only Substance Use Type: denies use *Occupational Status:: employed Housing: house Household Members: significant other, family, children *Travel in the last 8 weeks: None Family Hx:: Unable to obtain
[2020-10-15 13:38] VITALS: BP 133/78; PULSE 85; RESP 18; TEMP 36.8; O2SAT 98; BMI 39.9
== END ==
PROVIDERS: PCP Emergency Medicine; Visit Provider Clinical Nurse Specialist Family Health
DX: M25.569 Pain in unspecified knee (principal); G62.9 Polyneuropathy, unspecified
CPT/HCPCS: 99212

== ENCOUNTER 2020-11-27 12:01 | Emergency (ER) | payer OTHER, SELFPAY ==
--- NOTE | 2020-11-27 12:24 | HMH.EDUTC ---
[facility] Disposition Clinical Impression: Bronchitis Disposition: Home, Self-Care Condition on Discharge: Good Instructions: DI for Acute Bronchitis Additional Instructions: Call Monday so I can refer for more testing Prescriptions: Fluticasone/Vilanterol [Breo Ellipta 200-25 Mcg INH] 1 inh IH DAILY 30 Days #1 device Transmission Status: Pending to [facility] Doxycycline Hyclate [Doxycycline Hyclate 100mg Tablet] 100 mg PO BID 10 Days #20 tab Transmission Status: Pending to [facility] methylPREDNISolone [Medrol 4mg tab] 4 mg PO DIRECTED #21 tab Transmission Status: Pending to [facility] Albuterol Sulfate [Proair Hfa] 2 puffs IH Q4HP PRN 30 Days #1 hfa.aer.ad PRN Reason: Shortness Of Breath Transmission Status: Pending to [facility] Promethazine/Dextromethorphan [Promethazine-Dm 6.25-15 mg/5Ml] 5 ml PO Q6HP PRN 10 Days #200 syrup PRN Reason: Cough Transmission Status: Pending to [facility] Benzonatate [Tessalon Perle 100mg Cap*] 200 mg PO TID PRN 10 Days #30 cap PRN Reason: Cough Transmission Status: Pending to [facility] Referrals: Az Mills MD [Primary Care Provider] - Time of Disposition: 13:14 Medical Decision Making - Amari Inquiry Pt receiving controlled substance: No Vital Signs: 11/27/20 12:33 Temperature 98.4 F Temperature Source Oral Pulse Rate [Right Brachial] 106 H Respiratory Rate 19 Blood Pressure [Right Arm] 149/88 H Blood Pressure Mean [Right Arm] 108 Blood Pressure Source [Right Arm] Automatic Cuff Blood Pressure Position [Right Arm] Sitting 02 Sat by Pulse Oximetry 100 Oxygen Delivery Method Room Air - Lab Data Lab results reviewed: Yes: I reviewed the patient's lab results. Lab Results 11/27/20 12:22: Influenza Type A Ag Negative, Influenza Type B Ag Negative - Radiology Data #1 Image(s): Chest Image Reviewed: Yes I reviewed the patient's radiology image, Yes I have reviewed radiologist's interpretation Preliminary Findings: Normal/NAD [facility] HPI - General Stated complaint: cough, dyspnea, muscle pain Time Seen by Provider: 11/27/20 12:24 - History of Present Illness Provider Complaint: Patient presents with cough and malaise. Had COVID in August 2020 but has not felt well since. Has had cough, chest tightness, shortness of breath. She is easily winded and easily fatigued. Onset (ago): month(s) (3) Location: chest Relieving factors: none Exacerbating factors: none Associated symptoms: cough, malaise Treatments prior to arrival: none - Related Data Home Medications Medication Instructions Recorded Confirmed Duloxetine HCl 30 mg PO DAILY 12/12/19 10/09/20 Cetirizine HCl 10 mg PO DAILY 12/13/19 10/09/20 Omeprazole [Omeprazole 20mg Tab] 20 mg PO DAILY 12/13/19 10/09/20 gabapentin 300 mg capsule 300 mg PO TID cap 03/23/20 10/09/20 cholecalciferol (vitamin D3) 50 2,000 unit PO QWEEK tab 05/22/20 10/09/20 mcg (2,000 unit) tablet docusate sodium 100 mg capsule PO 05/22/20 10/09/20 oxycodone 5 mg capsule 5 mg PO Q6H PRN 08/31/20 10/09/20 Previous Rx's Medication Instructions Recorded polyethylene glycoL 3350 [Miralax 17 gm PO DAILY #5 packet 04/22/20 17gm Packet] ondansetron HCl 4 mg tablet 4 mg PO Q6H PRN #14 tab 05/22/20 albuterol sulfate 90 mcg/actuation 2 puff INHALATION Q4-6H PRN #8.5 g 10/09/20 aerosol inhaler azithromycin 250 mg tablet See Rx Instructions PO .COMPLEX #6 10/09/20 tab prednisone 20 mg tablet 20 mg PO BID 5 Days #10 tab 10/09/20 Gabapentin [Neurontin 300mg 300 mg PO QID #120 cap 10/15/20 capsule] Tramadol HCl [Tramadol 50mg 50 mg PO TID #90 tab 10/15/20 Tab] Albuterol Sulfate [Proair Hfa] 2 puffs IH Q4HP PRN 30 Days #1 11/27/20 hfa.aer.ad Benzonatate [Tessalon Perle 100mg 200 mg PO TID PRN 10 Days #30 cap 11/27/20 Cap*] Doxycycline Hyclate [Doxycycline 100 mg PO BID 10 Days #20 tab 11/27/20 Hyclate 100mg Tablet] Fluticasone/Vilanterol [B
[2020-11-27 12:28] LABS: UTC Influenza A Antigen Negative (Negative)
--- NOTE | 2020-11-27 12:28 | XR_ITS ---
PROCEDURE: XR CHEST 2V CLINICAL HISTORY: COUGH COMPARISON: CR CXR1VP XR chest portable from 06/29/2018 CR CXR2V XR chest 2V from 11/20/[address] ANGIO CHEST from 08/31/2020 FINDINGS: The cardiomediastinal silhouette and pulmonary vascularity are within normal limits. The lungs are clear without infiltrates, suspicious nodules, or pleural effusions. No acute bony abnormalities. IMPRESSION: No acute findings. Dictated by: Mir Geller MD 11/27/2020 12:54 Mir Geller MD in [place] 11/27/2020 12:54
[2020-11-27 12:29] LABS: UTC Influenza B Antigen Negative (Negative)
[2020-11-27 12:33] VITALS: BP 149/88; PULSE 106; RESP 19; TEMP 36.9; O2SAT 100; BMI 36.6
[2020-11-27 13:38] VITALS: BP 149/88; PULSE 106; RESP 19; TEMP 36.9; O2SAT 100
== END 2020-11-27 13:40 | disposition home or self-care (01) ==
PROVIDERS: Emergency Provider Physician Assistant; PCP Emergency Medicine
DX: J20.9 Acute bronchitis, unspecified (principal); K21.9 Gastro-esophageal reflux disease without esophagitis; Z88.0 Allergy status to penicillin; Z79.899 Other long term (current) drug therapy
CPT/HCPCS: 71046; 87804; 99202; G0463

== ENCOUNTER → 2020-12-31 14:59 | Outpatient (CLI) | payer OTHER, SELFPAY ==
--- NOTE | 2020-12-31 15:43 | XR_ITS ---
PROCEDURE: XR CHEST PORTABLE CLINICAL HISTORY: PNM Follow-up pneumonia COMPARISON: CR CXR1VP XR chest portable from 06/29/2018 CR CXR2V XR chest 2V from 11/20/[address] ANGIO CHEST from 08/31/2020 CR XR CHEST 2V from 11/27/2020 FINDINGS: The cardiomediastinal silhouette and pulmonary vascularity are within normal limits. The lungs are clear without infiltrates, suspicious nodules, or pleural effusions. No acute bony abnormalities. IMPRESSION: No acute findings. Dictated by: Mir Geller MD 12/31/2020 17:11 Mir Geller MD in [place] 12/31/2020 17:11
[2020-12-31 16:06] LABS: Adenovirus,PCR Not Detected (NotDetected); Bordetella Pertussis Not Detected (NotDetected); Chlamydophila Pneumoniae, PCR Not Detected (NotDetected); Coronavirus 19, PCR Not Detected (NotDetected); Coronavirus 229E Not Detected (NotDetected); Coronavirus NL63 Not Detected (NotDetected); Coronavirus OC43 Not Detected (NotDetected); Coronovirus HKU1,PCR Not Detected (NotDetected); Human Metapneumovirus Not Detected (NotDetected); Influenza A, PCR Not Detected (NotDetected); Influenza AH1, 2009 Not Detected (NotDetected); Influenza AH1, PCR Not Detected (NotDetected); Influenza AH3,PCR Not Detected (NotDetected); Influenza B, PCR Not Detected (NotDetected); Mycoplasma Pneumoniae, PCR Not Detected (NotDetected); Parainfluenza 1, PCR Not Detected (NotDetected); Parainfluenza 2, PCR Not Detected (NotDetected); Parainfluenza 3, PCR Not Detected (NotDetected); Parainfluenza 4, PCR Not Detected (NotDetected); Respiratory Syncytial Virus Not Detected (NotDetected); Rhinovirus/Enterovirus Not Detected (NotDetected)
[2020-12-31 18:22] LABS: D-Dimer 0.62 ug/mL (0.0-0.5)
[2020-12-31 20:37] LABS: Coronavirus 19 IgG Antibody Negative (Negative); Coronavirus 19 IgM Antibody Negative (Negative)
== END ==
LOC: LAB 14:59 → COVID.OUT 15:23
PROVIDERS: PCP Emergency Medicine; Visit Provider Internal Medicine Pulmonary Disease
DX: Z86.16 Personal history of COVID-19 (principal)
CPT/HCPCS: 36415; 71045; 85378; 86328; 87581; 87633; 87798

== ENCOUNTER → 2021-01-04 09:41 | Outpatient (CLI) | payer OTHER, SELFPAY ==
--- NOTE | 2021-01-04 09:41 | NM_ITS ---
PROCEDURE: NM PUL VENT AND PERFUSE CLINICAL INDICATION: elevated D-dimer Chest pain, history of Covid19, cough COMPARISON: No exams were available for comparison TECHNIQUE: Dose 35.6 mCi technetium DTPA inhaled 7.9 mCi technetium MAA IV FINDINGS: There is normal distribution of radiopharmaceutical on both the ventilation and perfusion images with no evidence of perfusion or ventilation defects. IMPRESSION: Normal exam, no evidence of pulmonary embolus. Dictated by: Mir Geller MD 01/05/2021 09:06 Mir Geller MD in [place] 01/05/2021 09:06
== END ==
PROVIDERS: PCP Emergency Medicine; Visit Provider Internal Medicine Pulmonary Disease
DX: R06.00 Dyspnea, unspecified (principal); R79.89 Other specified abnormal findings of blood chemistry
CPT/HCPCS: 78582; A9540; A9567

== ENCOUNTER → 2021-01-14 08:59 | Outpatient (POV) | payer OTHER, SELFPAY ==
[2021-01-14 09:12] VITALS: BP 145/78; PULSE 77; RESP 18; O2SAT 98; BMI 39.9
--- NOTE | 2021-01-14 09:15 | HMH.PAINSOAP ---
[facility] Pain Management SOAP Note Subjective:: Patient is a pleasant 40-year-old white female who presents today for follow-up. Patient has had bilateral knee replacements and is doing well. Patient states that the only thing she is having at this time is in her left SI joint. She had left SI joint injections in the past and has had 80% relief for over 3 months. Patient would like to repeat this her pain is recently started to return she rates her pain a 6 out of 10. She is also on gabapentin and tramadol. [facility] #[id number] reviewed and appropriate. Her current morphine equivalent is 15 we will continue these medications. She does not have any side effects to it. ROS General: no recent weight change, no fever, no sleep disturbances Respiratory: no cough, no shortness of air, no recurring pulmonary infections Cardiovascular/Peripheral Vascular: No chest pain, No palpitations, no edema, no shortness of breath. Gastrointestinal: no new onset incontinence, normal bowel movements reported Genitourinary: no new onset incontinence Musculoskeletal: Back pain, SI joint pain Psychiatric: normal mood/ affect Neurological: [denies new onset weakness in extremities], [denies new onset balance issues] Objective:: Physical Exam General: Alert and oriented x3, no acute distress, pleasant and cooperative, [on room air] Lungs: Resps E/U, Symmetrical chest expansion, Eyes: PERRL Musculoskeletal: Flexion and extension of lumbar spine somewhat guarded secondary to pain, deep tendon reflexes normal, strength in upper and lower extremities [5/5], [abnormal gait noted] positive Carmelina's test SI joint compression test Regi test and distraction test on the left side Neurological: speech clear, general operations agent equal, no gross sensory deficits Assessment:: Sacroiliitis, CRPS type II, knee pain, neuropathy Plan:: We will continue her tramadol 50 mg 1 p.o. 3 times daily and gabapentin 300 mg 1 p.o. 4 times daily. We will set her up for left SI joint injection. I will follow-up with her after this reassess her symptoms at that time. Dr. Jimenez has reviewed this note and agrees with this plan of care. This note was dictated using voice recognition software and may contain errors or omissions [facility] History I have reviewed the patient's past medical history: Yes Medical History: Reports:: Cancer, Gastroesophageal Reflux Disease(GERD), Hepatitis, MRSA Denies:: Diabetes Mellitus Type 1, Diabetes Mellitus Type 2, Hypertension, Internal Pacemaker, Seizures *Have you ever received a pneumonia vaccine?: Yes *Have you received a flu vaccine this season?: Yes Other Medical History: Reports: Other. Denies: Blood Transfusion Reaction Laterality Cases: Bilateral: Myringotomy (Ear Tubes), Tonsillectomy Other Surgeries: Yes: Appendectomy, Bariatric Surgery, Cholecystectomy, Hysterectomy-Total, Hysterectomy-Partial. No: Pacemaker Amputation: No Fractures: Yes (Tibia) - *Social History Smoking Status: Never smoker Alcohol Intake: never Alcohol Intake Frequency:: holidays/special occasions only Substance Use Type: denies use *Occupational Status:: other Housing: house Household Members: significant other, family, children *Travel in the last 8 weeks: None Family Hx:: Unable to obtain
== END ==
PROVIDERS: PCP Emergency Medicine; Visit Provider Clinical Nurse Specialist Family Health
DX: M46.1 Sacroiliitis, not elsewhere classified (principal); G57.70 Causalgia of unspecified lower limb; M25.569 Pain in unspecified knee; G62.9 Polyneuropathy, unspecified
CPT/HCPCS: 99212; G0463

== ENCOUNTER 2021-01-22 09:16 | Day surgery (SDC) | payer OTHER, SELFPAY ==
[2021-01-22 09:38] VITALS: BP 146/95; PULSE 81; RESP 18; TEMP 36.6; O2SAT 98; BMI 39.9
[2021-01-22 10:24] VITALS: BP 132/78; PULSE 74; RESP 18; O2SAT 98
[2021-01-22 10:25] VITALS: BP 138/89; PULSE 88; RESP 18; O2SAT 98
--- NOTE | 2021-01-22 10:30 | HMH.PMPROC ---
- Procedure Date: 01/22/21 Time: 10:30 Anesthesiologist:: Suraj Jimneez MD Complications:: None Pre-procedure Diagnosis:: Sacroiliitis Post-procedure Diagnosis:: Same Indications for Procedure:: This patient is a pleasant 40-year-old white female who we are treating for left-sided hip pain. She is tender over the left SI joint. She has a positive Carmelina's test on the left side. She has positive Regi test on the right side. She has positive SI joint compression test on the left side. She has a positive distraction test on the left side. She has benefited previously from left SI joint injections. She got 3 months relief from her previous injections. Is been almost a year since her last injection her pain is now back. We will do a repeat left SI joint injection under fluoroscopy today. Procedure Details:: Left SI joint injection under fluoroscopy Informed consent was obtained and the risks and benefits of the procedure was explained to the patient. Patient was taken to the procedure room. Patient was placed prone on the procedure table. The left hip was prepped using ChloraPrep. The skin and subcutaneous tissues were anesthetized using lidocaine. I placed a 22-gauge spinal needle into the inferior aspect of the left SI joint. Needle placement was confirmed with dye. After this we injected 5 mL bupivacaine 0.25% and Depo-Medrol 40 mg into the left SI joint. The patient tolerated the procedure well with no complication. Plan and Disposition:: We will follow-up with her in 2 weeks. Will reevaluate symptoms at that time.
[2021-01-22 10:40] VITALS: BP 157/97; PULSE 75; RESP 18; O2SAT 98
== END 2021-01-22 10:40 | disposition home or self-care (01) ==
LOC: SC.PAINP 09:20
PROVIDERS: PCP Emergency Medicine; Visit Provider Anesthesiology
DX: M46.1 Sacroiliitis, not elsewhere classified (principal); K21.9 Gastro-esophageal reflux disease without esophagitis; Z90.49 Acquired absence of other specified parts of digestive tract; Z98.84 Bariatric surgery status; Z88.0 Allergy status to penicillin; Z88.1 Allergy status to other antibiotic agents
CPT/HCPCS: 27096; G0260; J1030; Q9966

== ENCOUNTER → 2021-01-26 14:15 | Outpatient (CLI) | payer OTHER, SELFPAY ==
[2021-01-26 15:20] VITALS: PULSE 101; PULSE 98
== END ==
PROVIDERS: PCP Emergency Medicine; Visit Provider Internal Medicine Pulmonary Disease
DX: J44.9 Chronic obstructive pulmonary disease, unspecified (principal)
CPT/HCPCS: 94060; 94640; 94726; 94729

== ENCOUNTER → 2021-02-18 10:18 | Outpatient (POV) | payer OTHER, SELFPAY ==
--- NOTE | 2021-02-18 10:41 | P.CONS_ITS ---
[facility] Pain Management SOAP Note Subjective:: Patient is a pleasant 40-year-old white female who is we are treating for low back and leg pain. Patient is overall doing well she rates her pain a 6 out of 10 mostly in her low back and down her bilateral lower extremities. Patient would like to move forward with a lumbar epidural steroid injection. She has had this in the past and got 80% relief up to 3 months. Patient's not on any anticoagulation therapy. She is continuing to be as active as possible and continuing a home stretching program. ROS General: no recent weight change, no fever, no sleep disturbances Respiratory: no cough, no shortness of air, no recurring pulmonary infections Cardiovascular/Peripheral Vascular: No chest pain, No palpitations, no edema, no shortness of breath. Gastrointestinal: no new onset incontinence, normal bowel movements reported Genitourinary: no new onset incontinence Musculoskeletal: Back pain, leg pain Psychiatric: normal mood/ affect Neurological: [denies new onset weakness in extremities], [denies new onset balance issues] Objective:: Physical Exam General: Alert and oriented x3, no acute distress, pleasant and cooperative, [on room air] Lungs: Resps E/U, Symmetrical chest expansion, Eyes: PERRL Musculoskeletal: Flexion and extension of lumbar spine somewhat guarded secondary to pain, deep tendon reflexes normal, strength in upper and lower extremities [5/5], antalgic gait noted Neurological: speech clear, puffer tender equal, no gross sensory deficits Assessment:: Degenerative disc disease lumbar spine lumbar radiculopathy back pain Plan:: We will schedule her an L4-L5 lumbar epidural steroid injection I believe given her symptomology that this would benefit her. I will follow-up with her afterwards reassess her symptoms at that time she has been instructed to call the office if she has any issues prior to her next appointment. Patient also on tramadol 50 mg 1 p.o. 3 times daily and gabapentin 300 mg 1 p.o. 4 times daily. We will refill her medications today. Dr. Jimenez has reviewed this note and agrees with this plan of care. This note was dictated using voice recognition software and may contain errors or omissions [facility] History I have reviewed the patient's past medical history: Yes Medical History: Reports:: Gastroesophageal Reflux Disease(GERD), Hepatitis Denies:: Cancer, Diabetes Mellitus Type 1, Diabetes Mellitus Type 2, Hypertension, Internal Pacemaker, MRSA, Seizures *Have you ever received a pneumonia vaccine?: No *Have you received a flu vaccine this season?: No Other Medical History: Reports: Other. Denies: Blood Transfusion Reaction Laterality Cases: Bilateral: Myringotomy (Ear Tubes), Tonsillectomy Other Surgeries: Yes: Appendectomy, Bariatric Surgery, Cholecystectomy, Hysterectomy-Total, Hysterectomy-Partial. No: Pacemaker Amputation: No Fractures: Yes (Tibia) - *Social History Smoking Status: Never smoker Alcohol Intake: never Alcohol Intake Frequency:: holidays/special occasions only Substance Use Type: denies use *Occupational Status:: disabled Housing: house Household Members: spouse *Travel in the last 8 weeks: None Family Hx:: Unable to obtain
[2021-02-18 10:43] VITALS: BP 138/88; PULSE 74; RESP 18; O2SAT 98; BMI 39.9
== END ==
PROVIDERS: PCP Emergency Medicine; Visit Provider Clinical Nurse Specialist Family Health
DX: M51.16 Intervertebral disc disorders with radiculopathy, lumbar region (principal)
CPT/HCPCS: 99212; G0463

== ENCOUNTER 2021-02-19 13:44 | Emergency (ER) | payer OTHER, SELFPAY ==
[2021-02-19 13:45] VITALS: BP 176/102; PULSE 104; RESP 16; TEMP 36.6; O2SAT 98; BMI 39.9
--- NOTE | 2021-02-19 13:56 | HMH.EDGENADL ---
ED Disposition Clinical Impression: Eyebrow laceration Qualifiers: Encounter type: initial encounter Laterality: right Qualified Code(s): S01.111A - Laceration without foreign body of right eyelid and periocular area, initial encounter Concussion Qualifiers: Encounter type: initial encounter Loss of consciousness presence/duration: without LOC Qualified Code(s): S06.0X0A - Concussion without loss of consciousness, initial encounter Disposition: Home, Self-Care Condition on Discharge: Good Instructions: DI for Concussion, DI for Laceration Repair, DI for Postconcussion Syndrome Additional Instructions: You have been evaluated for head injury, eyebrow laceration. Please keep laceration clean and dry for 24 hours. You may shower after that. Use triple antibiotic ointment. Keep it out of the sun to avoid scar. You also been diagnosed with a closed head injury, concussion. Please avoid activities that cause headache. Take Tylenol and Motrin. Return to the emergency department for any new or worsening symptoms, headache, vision changes, other concerns. Referrals: Az Mills MD [Primary Care Provider] - Time of Disposition: 14:47 - Critical Care Critical Care Time: No Attestation: On , the high probability of a clinically significant, sudden or life threatening deterioration of the following system(s) required my full and direct attention, intervention and personal management. The time I documented below is in addition to time spent performing reported procedures but includes the following listed in this critical care notation. Medical Decision Making - Medical Records Medical records reviewed: Yes: I reviewed the patient's medical records. - Amari Inquiry Pt receiving controlled substance: No Vital Signs: 02/19/21 13:45 02/19/21 14:31 Temperature 98 F Temperature Source Oral Pulse Rate 87 Pulse Rate [Radial] 104 H Respiratory Rate 16 Blood Pressure 135/82 Blood Pressure [Right Arm] 176/102 H Blood Pressure Mean 95 Blood Pressure Mean [Right Arm] 126 Blood Pressure Position [Right Arm] Sitting 02 Sat by Pulse Oximetry 98 98 Oxygen Delivery Method Room Air Orders (Tests/Meds): ED MEDICATIONS Discontinued Medications Generic Name Dose Route Start Last Admin Trade Name Freq PRN Reason Stop Dose Admin Lidocaine HCl 5 ml 02/19/21 14:03 Lidocaine 1% 10ml Mdv SQ 02/19/21 14:04 ONCE ONE Tetanus/Reduced Diphtheria/Acell Pertussis 0.5 ml 02/19/21 13:57 02/19/21 14:56 Tet/Diphth/Pert-Adult 0.5ml Syringe IM 02/19/21 13:58 0.5 ml .ONCE ONE Administration ORDERS Category Date Time Status CT orbit BI wo con Stat Cat Scan 02/19/21 14:01 Taken - CT Data CT Scan: Head, Other (orbits) Time Received: 15:[address] Reviewed: Yes: I have reviewed the patient's CT results, I have viewed the radiologist's interpretation Findings Narrative: CT orbits Orbits are normal. Globes are unremarkable. Medical Decision Narrative: In summary this is a 40-year-old female presenting to the emergency department with blunt orbital trauma and laceration. Patient clinically stable on arrival. Vital signs within normal limits. Tetanus updated. Laceration anesthetized with lidocaine. Repaired with 5-0 absorbable sutures. Procedure well-tolerated. Ultrasound shows no obvious retinal or vitreous detachment. CT orbits shows no orbital wall fractures. No retrobulbar hematoma. Patient counseled on concussion precautions. Recommended follow-up with her primary care physician as well as ophthalmology. General Adult HPI - General Stated complaint: cut on right eye Time Seen by Provider: 02/19/21 13:56 Mode of Arrival: Ambulatory Source of Information: Patient Limitations: No Limitations - History of Present Illness HPI narrative: 40-year-old female presenting to the emergency department with a laceration on her right eyebrow, eye trauma. Just prior to arrival a
--- NOTE | 2021-02-19 14:01 | CT_ITS ---
PROCEDURE: CT ORBIT BI WO CON CLINICAL HISTORY: right eye trauma, diplopia on upward gaze COMPARISON: No exams were available for comparison TECHNIQUE: Axial images obtained with sagittal and coronal reformats. All CT scans at the facility use one or more dose reduction, viz: automated exposure control, ma/kV adjustment per patient size (including targeted exams where dose is matched to indication, i.e. head), or iterative reconstruction technique. FINDINGS: Bones: Unremarkable. No fracture, lytic, or blastic changes evident. Extracranial soft tissues: Unremarkable. Sinuses: Small right maxillary sinus retention cysts measuring to 9 mm medially. No sinus air-fluid level. Orbits: Unremarkable. Other: No other pertinent findings. IMPRESSION: No acute finding Dictated by: Mir Geller MD 02/19/2021 16:36 Mir Geller MD in OV 02/19/2021 16:36
[2021-02-19 14:31] VITALS: BP 135/82; PULSE 87; O2SAT 98
[2021-02-19 16:06] VITALS: BP 133/64; PULSE 78; RESP 16; TEMP 36.6; O2SAT 98
== END 2021-02-19 16:09 | disposition home or self-care (01) ==
PROVIDERS: Emergency Provider Emergency Medicine; PCP Emergency Medicine
DX: S01.111A Laceration without foreign body of right eyelid and periocular area, initial encounter (principal); S06.0X0A Concussion without loss of consciousness, initial encounter; W22.8XXA Striking against or struck by other objects, initial encounter; Y92.9 Unspecified place or not applicable; Z23 Encounter for immunization; Z88.0 Allergy status to penicillin; K21.9 Gastro-esophageal reflux disease without esophagitis; Z79.899 Other long term (current) drug therapy; Z88.1 Allergy status to other antibiotic agents
CPT/HCPCS: 12011; 70480; 90471; 90715; 99282

== ENCOUNTER 2021-02-25 11:10 | Emergency (ER) | payer OTHER, SELFPAY ==
[2021-02-25 11:11] VITALS: BP 136/83; PULSE 76; RESP 18; TEMP 36.9; O2SAT 98; BMI 39.9
[2021-02-25 11:36] VITALS: BP 127/71; PULSE 81; RESP 17; TEMP 36.8; O2SAT 99
== END 2021-02-25 11:35 | disposition home or self-care (01) ==
LOC: UTC 11:12
PROVIDERS: Emergency Provider Nurse Practitioner; PCP Emergency Medicine
DX: S01.111D Laceration without foreign body of right eyelid and periocular area, subsequent encounter (principal)
CPT/HCPCS: 99202; G0463

== ENCOUNTER 2021-02-26 11:24 | Day surgery (SDC) | payer OTHER, SELFPAY ==
[2021-02-26 11:29] VITALS: BP 142/102; PULSE 106; RESP 18; TEMP 36.6; O2SAT 98; BMI 36.6
[2021-02-26 11:47] VITALS: BP 135/89; BP 139/89; PULSE 85; RESP 18; O2SAT 98
[2021-02-26 12:02] VITALS: BP 140/88; PULSE 89; RESP 20; O2SAT 98
--- NOTE | 2021-02-26 12:04 | HMH.PMPROC ---
- Procedure Date: 02/26/21 Time: 12:04 Anesthesiologist:: Suraj Jimenez MD Complications:: None Pre-procedure Diagnosis:: Degenerative disc disease of lumbar spine with lumbar radiculopathy symptoms Post-procedure Diagnosis:: Same Indications for Procedure:: Patient is a pleasant 40-year-old white female who we are treating for low back pain and leg pain. She has done well with previous epidural steroid injections. Her pain is returning in her back and down her legs. She gets 80% relief up to 3 months. Will do repeat lumbar epidural steroid injection today to help her with her pain symptoms. Procedure Details:: Lumbar epidural steroid injection under fluoroscopy Informed consent was obtained and the risk and benefits of the procedure was explained to the patient. The patient was taken to the procedure room. The patient was placed prone on the procedure table. The patient was prepped and draped in sterile fashion. C-arm fluoroscopy was used to view the lumbar spine. Skin and subcutaneous tissues were anesthetized using lidocaine. I placed an 18-gauge epidural needle and advanced into the L4-L5 interspace using fluoroscopic guidance and [id number] to air. After confirmation of needle placement in the epidural space with dye I injected 2 mL of lidocaine 1.5% with Depo-Medrol 80 mg. Patient tolerated the procedure well with no complications. Plan and Disposition:: We will follow-up with her in 2 weeks. Will reevaluate symptoms at that time.
== END 2021-02-26 12:03 | disposition home or self-care (01) ==
LOC: SC.PAINP 11:25
PROVIDERS: PCP Emergency Medicine; Visit Provider Anesthesiology
DX: M51.16 Intervertebral disc disorders with radiculopathy, lumbar region (principal); K21.9 Gastro-esophageal reflux disease without esophagitis; Z88.0 Allergy status to penicillin; Z88.8 Allergy status to other drugs, medicaments and biological substances; Z90.49 Acquired absence of other specified parts of digestive tract; Z98.84 Bariatric surgery status
CPT/HCPCS: 62323; J1040; Q9966

== ENCOUNTER → 2021-03-18 13:24 | Outpatient (POV) | payer OTHER, SELFPAY ==
[2021-03-18 13:27] VITALS: BP 142/71; PULSE 68; RESP 18; O2SAT 99; BMI 46.8
--- NOTE | 2021-03-18 13:37 | HMH.PAINSOAP ---
[facility] Pain Management SOAP Note Subjective:: Patient is a pleasant 41-year-old white female who presents today for follow-up after lumbar epidural steroid injection. Patient got no relief from her injection. She also had SI joint injections with no relief. She rates her pain a 7 out of 10. Patient is having pain in her low back radiating down the left side of her body. Patient has not had any recent imaging. I do believe she would benefit from some diagnostic imaging. Her last MRI was abnormal. She has since had her knees replaced. We will have to see if she can have an MRI if not we will move forward with a CT scan. ROS General: no recent weight change, no fever, no sleep disturbances Respiratory: no cough, no shortness of air, no recurring pulmonary infections Cardiovascular/Peripheral Vascular: No chest pain, No palpitations, no edema, no shortness of breath. Gastrointestinal: no new onset incontinence, normal bowel movements reported Genitourinary: no new onset incontinence Musculoskeletal: Back pain, leg pain Psychiatric: normal mood/ affect Neurological: [denies new onset weakness in extremities], [denies new onset balance issues] Objective:: Physical Exam General: Alert and oriented x3, no acute distress, pleasant and cooperative, [on room air] Lungs: Resps E/U, Symmetrical chest expansion, Eyes: PERRL Musculoskeletal: Flexion and extension of lumbar spine somewhat guarded secondary to pain, deep tendon reflexes normal, strength in upper and lower extremities [5/5], [abnormal gait noted] Neurological: speech clear, tool tender equal, no gross sensory deficits Assessment:: Degenerative disc disease lumbar spine lumbar radiculopathy and back pain Plan:: We will schedule the patient for some diagnostic imaging either an MRI or a CT scan of her lumbar spine we will follow up with her afterwards reassess her symptoms at that time. We will continue her tramadol and gabapentin. She is on tramadol 50 mg 1 p.o. 3 times daily and gabapentin 300 mg 1 p.o. 4 times daily. [facility] #[id number] reviewed and appropriate. She has been instructed to call the office if she has any issues prior to her next appointment. Dr. Jimenez has reviewed this note and agrees with this plan of care. This note was dictated using voice recognition software and may contain errors or omissions [facility] History I have reviewed the patient's past medical history: Yes Medical History: Reports:: Gastroesophageal Reflux Disease(GERD), Hepatitis Denies:: Cancer, Diabetes Mellitus Type 1, Diabetes Mellitus Type 2, Hypertension, Internal Pacemaker, MRSA, Seizures *Have you ever received a pneumonia vaccine?: No *Have you received a flu vaccine this season?: No Other Medical History: Reports: Other. Denies: Blood Transfusion Reaction Laterality Cases: Bilateral: Myringotomy (Ear Tubes), Tonsillectomy Other Surgeries: Yes: Appendectomy, Bariatric Surgery, Cholecystectomy, Hysterectomy-Total, Hysterectomy-Partial. No: Pacemaker Amputation: No Fractures: Yes (Tibia) - *Social History Smoking Status: Never smoker Alcohol Intake: never Alcohol Intake Frequency:: holidays/special occasions only Substance Use Type: denies use *Occupational Status:: unemployed, disabled Housing: house Household Members: spouse *Travel in the last 8 weeks: None Family Hx:: Unable to obtain
== END ==
PROVIDERS: PCP Emergency Medicine; Visit Provider Clinical Nurse Specialist Family Health
DX: M51.16 Intervertebral disc disorders with radiculopathy, lumbar region (principal)
CPT/HCPCS: 99212; G0463

== ENCOUNTER → 2021-03-26 13:32 | Outpatient (CLI) | payer OTHER, SELFPAY ==
--- NOTE | 2021-03-26 13:36 | MR_ITS ---
PROCEDURE INFORMATION: Exam: MR Lumbar Spine Without Contrast. Exam date and time: 03/26/2021 1:36 PM Age: 41 years old Clinical indication: Low back pain and sciatica; Left; Patient HX: PT C/O lbp that radiates down lt leg x 1 year. PT denies injury or trauma and has no HX of lumbar surgery. Prior MR l-spine 10/08/2019 TECHNIQUE: Imaging protocol: Multiplanar magnetic resonance images of the lumbar spine without contrast. COMPARISON: MR LUMBAR SPINE WO CON 10/08/2019 8:45 AM FINDINGS: Vertebrae: The lumbar spine alignment is maintained. The vertebral body heights are normal. Spinal cord: The conus medullaris terminates posterior to L1. There is no clumping or nodularity of the cauda equina. Discs/Spinal canal/Neural foramina: For the purposes of this exam, I am assuming there is normal lumbar spine segmentation with 5 lumbar type vertebra which have fully developed inferior disc spaces. The marrow signal is normal. There is disc desiccation at all levels of the lumbar spine with loss of internal T2 disc signal to varying degrees. L1/2: Mild spinal canal stenosis secondary to a moderate diffuse disc bulge with a slightly more prominent left paracentral component which is partially effacing the anterior thecal sac but not resulting in nerve root compression. The neural foramen are patent. The AP canal dimension is 11 mm. When compared to the prior exam the appearance is stable. L2/3: Trivial diffuse disc bulging but no significant spinal canal stenosis, neural foraminal narrowing or nerve root compression. L3/4: Trivial diffuse disc bulging but no significant lateralizing disc herniation, spinal canal stenosis or neural foraminal narrowing. L4/5: Moderate facet arthropathy and mild far lateral disc bulging contributing to mild bilateral neural foraminal narrowing: When compared to the prior examination, this has not changed significantly. L5/S1: No significant lateralizing disc herniation, spinal canal stenosis or neural foraminal narrowing. Soft tissues: Unremarkable. Retroperitoneal space: The paraspinous and visualized retroperitoneal soft tissues are unremarkable. IMPRESSION: 1. Degenerative changes within the lumbar spine as detailed above level by level.
== END ==
PROVIDERS: PCP Emergency Medicine; Visit Provider Clinical Nurse Specialist Family Health
DX: M54.5 Low back pain (principal); Z96.653 Presence of artificial knee joint, bilateral
CPT/HCPCS: 72148; 76376

== ENCOUNTER → 2021-04-01 13:21 | Outpatient (POV) | payer OTHER, SELFPAY ==
[2021-04-01 13:27] VITALS: BP 143/100; PULSE 134; RESP 18; O2SAT 100; BMI 41.5
--- NOTE | 2021-04-01 13:53 | HMH.PAINSOAP ---
[facility] Pain Management SOAP Note Subjective:: Patient is a 41-year-old white female who presents today for follow-up after lumbar epidural steroid injection. The patient is being treated for low back pain with radiation into her left leg. Patient is having numbness and tingling into her left leg as well as left arm pain with numbness and tingling. The patient has had a lumbar epidural steroid injection in the clinic for which she got no relief. She is also had an injection to her left SI joint with no relief. All of the patient's pain is primarily on the left side. She has tried compounding cream with no relief. She has undergone physical therapy for greater than 6 weeks with no relief. She does use ice and heat therapies with which gave her little to no relief. She was seen in our clinic in the past for possible spinal cord stimulation for bilateral knee pain, however, when Covid happened, she postponed the implant. As result of postponement of the implant, she did see orthopedics and underwent bilateral knee replacements with the revision of her left knee. Since then she has no new pain, however, her low back pain has worsened on the left side. She is currently taking tramadol and gabapentin for which she does need refills on today. She says that she is taking an extra pill at night to give her relief, however, she does not see any changes in her pain. She did undergo an MRI of her lumbar spine and is here today to discuss the results. Today she does rate her pain a 7 out of 10. Her pain is worse when she leans forward and with extension and twisting at her waist. She says she is unable to lie on her back or sit for very long without developing severe pain. The pain does not radiate into the buttock Review of Systems General: No recent weight changes, no fever, no sleep disturbances Respiratory: No cough, no shortness of air, no recurring pulmonary infections Cardiovascular/peripheral vascular: No chest pain, no palpitations, no edema, no shortness of breath Gastrointestinal: No new onset incontinence, normal bowel movements reported Genitourinary: No new onset incontinence Musculoskeletal: Low back pain worse with standing, lying flat, and with bending forward or extension and twisting at waist Psychiatric: Normal mood/affect Neurological: [Denies weakness in extremities], [denies balance issues] Objective:: Physical exam General: Alert and oriented x3, no acute distress, pleasant and cooperative, [on room air] Lungs: Respirations even and unlabored, symmetrical chest expansion Eyes: PERRL Musculoskeletal: Flexion and extension of lumbar spine somewhat guarded secondary to pain, deep tendon reflexes normal, strength in upper and lower extremities [5/5], [abnormal gait noted] positive Kemps test Neurological: Speech clear, employment training specialist 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 We will schedule her for medial branch block/facet joint injections on the left side L4-L5 L5-S1. She does have facet arthropathy reported to her MRI. She is not on any anticoagulation therapy. She has tried and failed a lumbar epidural steroid injection as well as an SI injection. She has tried physical therapy for more than 6 weeks along with anti-inflammatories. She has tried taking Flexeril, however, it does cause drowsiness for the patient and she is only able to take at bedtime. She is currently on tramadol and gabapentin. We will continue her tramadol 50 mg 1 tablet p.o. 3 times daily and gabapentin 300 g 1 tablet p.o. 4 times daily. We will also give the patient Skelaxin 800 mg 1 tablet p.o. twice daily. We will see her back after her diagnostic medial branch blocks to reevaluate her symptoms. I did discuss with the patient that these injections are diagnostic and she would requir
== END ==
PROVIDERS: Visit Provider Clinical Nurse Specialist Family Health
DX: M51.36 Other intervertebral disc degeneration, lumbar region (principal); M47.816 Spondylosis without myelopathy or radiculopathy, lumbar region; M54.06 Panniculitis affecting regions of neck and back, lumbar region
CPT/HCPCS: 99212; G0463

== ENCOUNTER 2021-04-09 13:56 | Day surgery (SDC) | payer OTHER, SELFPAY ==
[2021-04-09 14:14] VITALS: BP 123/78; PULSE 108; RESP 18; TEMP 36.4; O2SAT 98; BMI 39.9
[2021-04-09 14:35] VITALS: BP 143/96; PULSE 105; RESP 18; O2SAT 98
[2021-04-09 14:36] VITALS: BP 143/96; PULSE 111; RESP 18; O2SAT 99
--- NOTE | 2021-04-09 14:57 | HMH.PMPROC ---
- Procedure Date: 04/09/21 Time: 14:57 Anesthesiologist:: Suraj Jimenez MD Complications:: None Pre-procedure Diagnosis:: Degenerative disc disease of lumbar spine with lumbar spondylosis and lumbar facet arthropathy Post-procedure Diagnosis:: Same Indications for Procedure:: Patient is a pleasant 41-year-old white female who we have been treating for left-sided low back pain. She has had an epidural steroid injection as well as an SI joint injection which have not given her any relief. She is tender over the facet joints of L4-5 and L5-S1. She has increased pain with extension and twisting. We will do left-sided lumbar facet joint injection/medial branch blocks of L4-5 and L5-S1 today. Procedure Details:: Lumbar medial branch block Informed consent was obtained and the risks and benefits of the procedure was explained to the patient. The back was prepped using ChloraPrep. The skin and subcutaneous tissues were anesthetized using lidocaine. I placed 22-gauge spinal needles into the facet joint/medial branches of L4-L5 and L5-S1 on the left side. Needle placement was confirmed with dye. After this we injected 3 mL bupivacaine 0.25% and Depo-Medrol 20 mg into each facet joint/medial branch of L4-L5 and L5-S1 on the left side. We used a total of 40 mg Depo-Medrol for the levels on the left side. The patient tolerated the procedure well with no complications. Plan and Disposition:: We will follow-up with her in 2 weeks. Will reevaluate symptoms at that time. We will plan on RF ablation to the left side of facet joints of L4-5 and L5-S1 if these are successful.
[2021-04-09 15:07] VITALS: BP 133/92; PULSE 89; RESP 18; O2SAT 98
== END 2021-04-09 15:08 | disposition home or self-care (01) ==
LOC: SC.PAINP 13:58
PROVIDERS: PCP Emergency Medicine; Visit Provider Anesthesiology
DX: M51.36 Other intervertebral disc degeneration, lumbar region (principal); M47.816 Spondylosis without myelopathy or radiculopathy, lumbar region; M54.06 Panniculitis affecting regions of neck and back, lumbar region; K21.9 Gastro-esophageal reflux disease without esophagitis; Z87.39 Personal history of other diseases of the musculoskeletal system and connective tissue
CPT/HCPCS: 64493; 64494; Q9966

== ENCOUNTER → 2021-05-06 09:49 | Outpatient (POV) | payer OTHER, SELFPAY ==
[2021-05-06 10:21] VITALS: BP 147/98; PULSE 116; RESP 18; O2SAT 99; BMI 39.9
--- NOTE | 2021-05-06 11:04 | HMH.PAINSOAP ---
[facility] Pain Management SOAP Note Subjective:: Patient is a 41-year-old white female who presents today for follow-up. She is being treated for degenerative disc disease lumbar spine with lumbar spondylosis and lumbar facet arthropathy. Patient recently underwent medial branch block/facet joint injections at L4-L5 and L5-S1. Patient says she did not get any relief following the injections. Her pain is an 8 out of 10. She has tried lumbar epidural steroid injections as well as SI injections with no significant relief. She says her pain is worsening each day. She is unable to stand or walk without having significant pain in her low back. It does radiate into her lower extremities. She previously had bilateral knee pain and underwent bilateral knee replacements. Prior to her knee replacements, the patient was worked up for possible stimulation and got excellent relief. She did undergo the trial for 5 days. Patient says that she has tried oral medications of tramadol and gabapentin for which she is prescribed by our clinic at this time. It has not given her any significant relief. She has tried injections along with continued ice and heat therapies and physical therapy for greater than 6 weeks. She also attempts home stretching. Patient has a history of gastric bypass and is unable to do anti-inflammatories. She does report to have used a TENS unit during her physical therapy in the past which gave her significant relief. We discussed ordering a TENS unit Zynex for her low back pain. She would like to proceed with the stimulator trial once again to see if this relieves her low back pain. She has not had a recent psychological evaluation. Patient is not considered a surgical candidate at this time. Review of Systems General: No recent weight changes, no fever, no sleep disturbances Respiratory: No cough, no shortness of air, no recurring pulmonary infections Cardiovascular/peripheral vascular: No chest pain, no palpitations, no edema, no shortness of breath Gastrointestinal: No new onset incontinence, normal bowel movements reported Genitourinary: No new onset incontinence Musculoskeletal: Low back pain bilateral, bilateral lower extremity pain Psychiatric: Normal mood/affect Neurological: [Denies weakness in extremities], [denies balance issues] Objective:: Physical exam General: Alert and oriented x3, no acute distress, pleasant and cooperative, [on room air] Lungs: Respirations even and unlabored, symmetrical chest expansion Eyes: PERRL Musculoskeletal: Flexion and extension of lumbar spine somewhat guarded secondary to pain, deep tendon reflexes normal, strength in upper and lower extremities [5/5], [abnormal gait noted] Neurological: Speech clear, 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 We will schedule her for psychological evaluation for possible SCS therapy. She is not considered a surgical candidate. She has tried and failed physical therapy for greater than 6 weeks along with continued home stretching. She also uses ice and heat therapies. We did discuss compounding cream to use until her psych eval and a TENS unit. We will order zynex TENS unit and compounding cream for her to apply topically to her low back area. She is unable to take anti-inflammatories due to history of gastric bypass. We will see her back in the clinic after her psychological evaluation to discuss further plan of care. Patient has been instructed to contact the clinic with any concerns before the next appointment. Dr. Jimenez has reviewed this note and agrees with this plan of care. This note was dictated using voice recognition software and make contain errors or omissions. [facility] History I have reviewed the patient's past medical history: Yes
== END ==
PROVIDERS: PCP Emergency Medicine; Visit Provider Clinical Nurse Specialist Family Health
DX: M51.16 Intervertebral disc disorders with radiculopathy, lumbar region (principal); M47.816 Spondylosis without myelopathy or radiculopathy, lumbar region; M54.06 Panniculitis affecting regions of neck and back, lumbar region
CPT/HCPCS: 99212; G0463

== ENCOUNTER 2021-06-04 08:02 | Emergency (ER) | payer OTHER, SELFPAY ==
[2021-06-04 08:03] VITALS: BP 166/112; PULSE 123; RESP 22; TEMP 37; O2SAT 98; BMI 38.2
--- NOTE | 2021-06-04 08:07 | HMH.EDGENADL ---
ED Disposition Clinical Impression: UTI (urinary tract infection) Qualifiers: Urinary tract infection type: acute pyelonephritis Qualified Code(s): N10 - Acute pyelonephritis Disposition: Home, Self-Care Condition on Discharge: Good Prescriptions: Ciprofloxacin HCl [Cipro 500mg Tab] 500 mg PO BID #10 tab Transmission Status: Pending to [id number] Referrals: Az Mills MD [Primary Care Provider] - 3 days Time of Disposition: 09:53 - Critical Care Critical Care Time: No Attestation: On , the high probability of a clinically significant, sudden or life threatening deterioration of the following system(s) required my full and direct attention, intervention and personal management. The time I documented below is in addition to time spent performing reported procedures but includes the following listed in this critical care notation. Medical Decision Making - Medical Records Medical records reviewed: Yes: I reviewed the patient's medical records. - Amari Inquiry Pt receiving controlled substance: No Vital Signs: 06/04/21 08:03 06/04/21 08:54 Temperature 98.6 F Temperature Source Oral Pulse Rate 96 H Pulse Rate [Radial] 123 H Respiratory Rate 22 16 Blood Pressure 145/88 H Blood Pressure [Right Arm] 166/112 H Blood Pressure Mean [Right Arm] 130 Blood Pressure Position Sitting Blood Pressure Position [Right Arm] Sitting 02 Sat by Pulse Oximetry 98 96 Oxygen Delivery Method Room Air Room Air - Lab Data Lab results reviewed: Yes: I reviewed the patient's lab results. Lab Results 06/04/21 08:10: Urine Color Yellow, Urine Appearance Clear, Urine pH 6.0, Ur Specific [place] 1.025, Urine Protein 3+, Urine Glucose (UA) Negative, Urine Ketones Negative, Urine Blood 3+, Urine Nitrate Positive, Urine Bilirubin Negative, Urine Urobilinogen 0.2, Ur Leukocyte Esterase 1+ A, Urine RBC 5-10, Urine WBC 20-50 Orders (Tests/Meds): ED MEDICATIONS Discontinued Medications Generic Name Dose Route Start Last Admin Trade Name Freq PRN Reason Stop Dose Admin Ketorolac Tromethamine 15 mg 06/04/21 08:09 06/04/21 08:12 Ketorolac 30mg/Ml Vial IV 06/04/21 08:10 15 mg ONCE ONE Administration Ondansetron HCl 4 mg 06/04/21 08:09 06/04/21 08:12 Ondansetron 4mg/2ml Vial IV 06/04/21 08:10 4 mg ONCE ONE Administration ORDERS Category Date Time Status Urine Culture Stat Micro 06/04/21 08:10 Received - CT Data CT Scan: Abdomen, Pelvis Time Received: 09:[address] Reviewed: Yes: I have reviewed the patient's CT results, I have viewed the radiologist's interpretation Preliminary Findings: Abnormal Findings Narrative: Right-sided stranding concerning for possible urinary tract infection versus recently passed stone. No obvious stone at this time. Medical Decision Narrative: 41yo F evaluated for right-sided flank and groin pain. Patient is in mild distress on initial evaluation secondary to pain. Physical exam is largely unremarkable except for CVA tenderness on the right side. Patient is status post cholecystectomy and appendectomy, hysterectomy and Bob-en-Y bypass. Patient's clinical presentation is most consistent with kidney stone. Urinalysis has been ordered and patient is gone for CT without contrast. Patient's urinalysis consistent with urinary tract infection. Patient CT scan also consistent with urinary tract infection versus possible recent passage of kidney stone without obvious sign of kidney stone at this time. Patient started on antibiotics and encouraged to follow with her PCP. Ibuprofen/Tylenol as needed for aches and pains. General Adult HPI - General Stated complaint: blood in urine and right side pain Time Seen by Provider: 06/04/21 08:07 Mode of Arrival: Ambulatory - History of Present Illness HPI narrative: 41yo F presents the emergency department secondary to right flank and groin pain. Symptoms began earlier this morning. Patient re
[2021-06-04 08:14] LABS: Microscopic, Urine URINE MICROSCOPIC (MICROSCOPIC)
[2021-06-04 08:16] LABS: Appearance,Urine CLEAR (Clear); Bilirubin,Urine Negative (Negative); Blood, Urine 3+ (Negative); Color,Urine YELLOW (Yellow); Glucose,Urine (UA) Negative (Negative); Ketones,Urine Negative (Negative); Leukocyte Esterase,Urine 1+ (Negative); Nitrate,Urine POSITIVE (Negative); Protein,Urine 3+ (Negative); Specific Gravity, Urine 1.025 (1.005-1.030); Urobilinogen,Urine 0.2 EU/dl (0.2)
[2021-06-04 08:26] LABS: WBC,Urine 20-50 #/hpf (0-3)
--- NOTE | 2021-06-04 08:29 | CT_ITS ---
PROCEDURE: CT ABDOMEN PELVIS WO CON CLINICAL INDICATION: PAIN Right flank pain COMPARISON: CT CT ABDOMEN PELVIS W CON from 04/22/2020 TECHNIQUE: Axial images obtained with sagittal and coronal reformats. All CT scans at the facility use one or more dose reduction, viz: automated exposure control, ma/kV adjustment per patient size (including targeted exams where dose is matched to indication, i.e. head), or iterative reconstruction technique. FINDINGS: LOWER THORAX: Small pneumatocele is present in the right lower lobe posteriorly and inferiorly. This measures 3 x 1 cm. ABDOMEN & PELVIS: Liver, spleen, adrenal glands, and pancreas have an unremarkable unenhanced appearance. There has been prior gastric bypass surgery and prior cholecystectomy. There is minimal prominence of the right renal pelvis and proximal ureter with minimal haziness of the proximal periureteral fat. A definite ureteral stone is however not identified. A calcific density is present in the right lower pelvic region along the course of the right ureter but is secondary to a phlebolith having a similar appearance on 04/22/2020. There is mild nonspecific thickening of the urinary bladder wall. No intestinal obstruction or free air is evident. Prior appendectomy. No evidence of diverticulitis. There are few small mesenteric lymph nodes which are nonspecific. There is some mild thickening of the urinary bladder wall. Prior hysterectomy. There is some mild haziness of the pelvic fat on both sides left slightly greater than right. No acute bony findings. IMPRESSION: 1. Minimal ectasia of the right renal collecting system and minimal haziness of the right [place] ureteral fat approximately without obvious renal or ureteral calculus. This could be related to recently passed stone or right-sided urinary tract infection. 2. Mild bladder wall thickening which could be due to nondistention or cystitis. There is some minimal haziness of the pelvic fat left slightly greater than right which could be seen with underlying inflammatory process. Dictated by: Mir Geller MD 06/04/2021 09:37 Mir Geller MD in OV 06/04/2021 09:37
[2021-06-04 08:54] VITALS: BP 145/88; PULSE 96; RESP 16; O2SAT 96
[2021-06-04 10:04] VITALS: BP 124/79; PULSE 92; RESP 16; TEMP 36.6; O2SAT 98
== END 2021-06-04 10:05 | disposition home or self-care (01) ==
PROVIDERS: Emergency Provider Family Medicine; PCP Emergency Medicine
DX: N10 Acute pyelonephritis (principal); N30.00 Acute cystitis without hematuria; B96.20 Unspecified Escherichia coli [E. coli] as the cause of diseases classified elsewhere; K21.9 Gastro-esophageal reflux disease without esophagitis
CPT/HCPCS: 74176; 81001; 87086; 87088; 87186; 96374; 96375; 99282; J2405

== ENCOUNTER → 2021-06-10 14:40 | Outpatient (POV) | payer OTHER, SELFPAY ==
[2021-06-10 14:50] VITALS: BP 147/93; PULSE 120; RESP 18; O2SAT 100; BMI 39.9
--- NOTE | 2021-06-10 15:28 | HMH.PAINSOAP ---
[facility] Pain Management SOAP Note Subjective:: Patient is a pleasant 41-year-old white female who presents today for follow-up. She is currently being treated in our office for degenerative disc disease of the lumbar spine, lumbar spondylosis, lumbar radiculopathy and lumbar facet arthropathy. We were trying to obtain authorization for spinal cord stimulator trial to help with the patient's discomfort, her insurance has denied the trial. She is rating her pain today a 6 out of 10. She is continuing to have discomfort in the low back. She describes the pain as a constant aching sensation made worse with prolonged standing and walking. Patient has recently had bilateral total knee replacements. She feels as though this is contributed to the discomfort in her back. The patient also has radiating pains into bilateral lower extremities. She experiences weakness and numbness noted bilaterally. The patient has tried and failed conservative therapies for treatment of her discomfort. She has had multiple injective therapies, oral medications, physical therapy for greater than 6 weeks, continued ice and heat therapies without any lasting relief in her symptoms. We do have intentions on using to percutaneously for the spinal cord stimulator trial. Review of Systems General: No recent weight changes, no fever, no sleep disturbances Respiratory: No cough, no shortness of air, no recurring pulmonary infections Cardiovascular/peripheral vascular: No chest pain, no palpitations, no edema, no shortness of breath Gastrointestinal: No new onset incontinence, normal bowel movements reported Genitourinary: No new onset incontinence Musculoskeletal: [Low back pain] Psychiatric: [Normal mood/affect] Neurological: [Denies weakness in extremities], [denies balance issues] Objective:: Physical exam General: Alert and oriented x3 no acute distress, pleasant and cooperative, [on room air] Lungs: Respirations even and unlabored, symmetrical chest expansion Eyes: PERRL Musculoskeletal: Flexion and extension of the lumbar spine nonguarded, deep tendon reflexes normal, strength in upper and lower extremities 5 out of 5 normal gait noted Neurological: Speech clear, 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 Plan:: We will request an appeal with ella to continue to try to improve her spinal cord stimulator. We will reach out with the patient to notify her of her approval/denial. She is welcome to contact clinic if she has any questions or concerns. Dr. Jimenez has reviewed this note and agrees with this plan of care. This note was dictated using voice recognition software and make contain errors or omissions. [facility] History Medical History: Reports:: Asthma, Gastroesophageal Reflux Disease(GERD), Hepatitis, Kidney Stones, Urinary Tract Infection Denies:: Cancer, Diabetes Mellitus Type 1, Diabetes Mellitus Type 2, Hypertension, Internal Pacemaker, MRSA, Seizures *Have you ever received a pneumonia vaccine?: No *Have you received a flu vaccine this season?: Yes Other Medical History: Reports: Other. Denies: Blood Transfusion Reaction Laterality Cases: Bilateral: Myringotomy (Ear Tubes), Tonsillectomy Other Surgeries: Yes: Appendectomy, Bariatric Surgery, Cholecystectomy, Hysterectomy-Total, Hysterectomy-Partial. No: Pacemaker Amputation: No Fractures: Yes ([place]) - *Social History Smoking Status: Never smoker Alcohol Intake: never Alcohol Intake Frequency:: holidays/special occasions only Substance Use Type: denies use *Occupational Status:: unemployed Housing: house Household Members: significant other *Travel in the last 8 weeks: None Family Hx:: Diabetes, Hypertension, Hyperlipidemia, Kidney Disease, Asthma, Other, Thyroid Disorder
--- NOTE | 2021-06-30 11:03 | PC.NURSE ---
called in Rx for Tizanidine 4mg TID with 2 refills to pt's pharmacy per provider order.
== END ==
PROVIDERS: Visit Provider Family Medicine
DX: M51.16 Intervertebral disc disorders with radiculopathy, lumbar region (principal); M47.896 Other spondylosis, lumbar region; M54.06 Panniculitis affecting regions of neck and back, lumbar region
CPT/HCPCS: 99212; G0463

== ENCOUNTER → 2021-08-30 10:21 | Outpatient (POV) | payer OTHER, SELFPAY ==
[2021-08-30 10:32] VITALS: BP 157/90; PULSE 95; RESP 18; O2SAT 99; BMI 39.9
--- NOTE | 2021-08-30 10:45 | HMH.PAINSOAP ---
[facility] Pain Management SOAP Note Subjective:: Patient is a 41-year-old white female. She is following up today for medication refill and for discussion of interventional therapies. We did schedule the patient for spinal cord stimulator trial, but she was denied by her insurance following appeal. Patient has pain on the left side only. She says the pain is in her left low back area made worse with standing, bending forward and turning and twisting at waist. She does rate her pain a 7 out of 10. We manage the patient with gabapentin 300 g 1 tablet p.o. four times daily and tramadol 50 mg 1 tablet p.o. 3 times daily. Patient has recently started phentermine to help with weight loss. She has had gained an excessive amount of weight due to limited mobility secondary to pain. The patient says that she did have two knee surgeries in 6 months and then developed Covid. She was very limited with mobility at that time. Now, she is having extensive low back pain with exercising. Patient has lost greater than 40 pounds and is doing great with weight loss, but continues to have significant pain in her left low back area. Patient has had two rounds of medial branch block/facet joint injections at the L4-L5 L5-S1 area on the left side only. She got approximately 90% relief each time for 3 to 4 days. The patient's pain did return unfortunately. Patient would like to proceed with an RFA. Review of Systems General: No recent weight changes, no fever, no sleep disturbances Respiratory: No cough, no shortness of air, no recurring pulmonary infections Cardiovascular/peripheral vascular: No chest pain, no palpitations, no edema, no shortness of breath Gastrointestinal: No new onset incontinence, normal bowel movements reported Genitourinary: No new onset incontinence Musculoskeletal: Left low back pain made worse with standing, bending forward and turning or twisting at waist Psychiatric: [Normal mood/affect] Neurological: [Denies weakness in extremities], [denies balance issues] Objective:: Physical exam General: Alert and oriented x3, no acute distress, pleasant and cooperative Lungs: Respirations even and unlabored, symmetrical chest expansion Eyes: PERRL Musculoskeletal: Flexion and extension of lumbar [spine] somewhat guarded secondary to pain, [antalgic gait noted], positive Kemps test Neurological: Speech clear, no gross sensory deficit Assessment:: Degenerative disc disease lumbar spine with lumbar facet arthropathy and lumbar spondylosis Plan:: Patient is a 41-year-old white female who will get medication refills today. She also undergoes interventional therapies in the clinic. We will schedule the patient for an RFA left side L4-L5 L5-S1. She has had two rounds of medial branch blocks for which she got approximately 90% relief for 3 to 5 days. She has tried physical therapy for more than 6 weeks with minimal relief. She is also tried home stretching and continues with exercise program. She is using ice and heat therapies and anti-inflammatories. The patient has lost greater than 40 pounds but says that her pain has continued. We do manage the patient with tramadol 50 mg 1 tablet p.o. 3 times daily and gabapentin 3 mg 1 tablet p.o. 4 times daily. We will refill these medications and give the patient 3 months of the medicine. We will also plan to follow-up with the patient after her RFA for reevaluation of symptoms. Patient is not on any anticoagulation therapy. Patient is not diabetic. Risks and benefits of the medication have been explained in detail to the patient. If side effects do present with the medication, patient has been advised to stop the medication immediately and call the clinic. The patient has been advised to consult with his/her primary care provider and pharmacist regarding drug-drug interaction of medications currently prescribed. Possible side effects of corticosteroids have been discussed with the
== END ==
PROVIDERS: Visit Provider Clinical Nurse Specialist Family Health
DX: M51.36 Other intervertebral disc degeneration, lumbar region (principal); M47.816 Spondylosis without myelopathy or radiculopathy, lumbar region; M54.06 Panniculitis affecting regions of neck and back, lumbar region
CPT/HCPCS: 99212; G0463

== ENCOUNTER 2021-09-10 09:03 | Day surgery (SDC) | payer OTHER, SELFPAY ==
[2021-09-10 09:05] VITALS: BP 146/94; PULSE 118; RESP 18; TEMP 36.9; O2SAT 100; BMI 88.0
[2021-09-10 09:42] VITALS: BP 160/90; PULSE 108; RESP 18; O2SAT 99
[2021-09-10 09:47] VITALS: PULSE 98; RESP 18; O2SAT 100
--- NOTE | 2021-09-10 09:55 | P.PCN_ITS ---
- Procedure Date: 09/10/21 Time: 09:55 Anesthesiologist:: Suraj Jimenez MD Complications:: None Pre-procedure Diagnosis:: Degenerative disc disease of the lumbar spine with lumbar facet arthropathy and lumbar spondylosis Post-procedure Diagnosis:: Same Indications for Procedure:: The patient is a pleasant 41-year-old white female who we are treating for degenerative disc disease of lumbar spine with lumbar facet arthropathy and lumbar spondylosis. She did well with previous medial branch blocks to the L4- L5 and L5-S1 facet joints on the left side. She was 80 to 90% better for short period of time. She presents for RF ablation to the same facet joints on the left side today. Procedure Details:: Lumbar RFA informed consent was obtained and the risk and benefits of the procedure was explained to the patient. Patient was placed prone on the procedure table. The patient was prepped and draped in sterile fashion. C-arm fluoroscopy was used to view the lumbar spine. The skin and subcutaneous tissues were anesthetized using lidocaine. I placed 20-gauge RF needles into the facet joints of L4-5 and L5-S1 levels on the left side. We underwent sensory stimulation. There is good sensory stimulation at 0.8 V. We underwent motor stimulation. There is no motor stimulation at 2 V. We then anesthetized these levels with lidocaine and Depo-Medrol. I used a total of 40 mg Depo-Medrol for both levels. I then burned both levels of L4-L5 and L5-S1 facet joint/medial branches on the left side, each one for 4 minutes at 80 ?C. Patient tolerated the procedure well with no complication. Plan and Disposition:: We will follow-up with her in 2 weeks. Will reevaluate symptoms at that time.
[2021-09-10 10:00] VITALS: BP 140/91; PULSE 96; RESP 20; O2SAT 100
== END 2021-09-10 10:00 | disposition home or self-care (01) ==
LOC: SC.PAINP 09:04
PROVIDERS: PCP Physician Assistant; Visit Provider Anesthesiology
DX: M51.36 Other intervertebral disc degeneration, lumbar region (principal); M47.816 Spondylosis without myelopathy or radiculopathy, lumbar region; M54.06 Panniculitis affecting regions of neck and back, lumbar region; J45.909 Unspecified asthma, uncomplicated; K21.9 Gastro-esophageal reflux disease without esophagitis; Z87.442 Personal history of urinary calculi; Z87.440 Personal history of urinary (tract) infections; Z88.0 Allergy status to penicillin; Z88.1 Allergy status to other antibiotic agents
CPT/HCPCS: 64635; 64636; J1040

== ENCOUNTER 2021-09-18 11:57 | Emergency (ER) | payer OTHER, SELFPAY ==
[2021-09-18] VITALS (11 sets, daily range): BP systolic 123–198; BP diastolic 76–122; PULSE 73–116; RESP 16–21; TEMP 36.8; O2SAT 98–100; BMI 39.9
--- NOTE | 2021-09-18 11:57 | ECG_ITS ---
APPROVED REPORT Exam: Resting ECG HR:117 bpm ECG Measurements Heart Rate 117 AXES PA 134 P 64 QRSd 76 QRS 77 QT 316 T 44 QTc 440 Conclusion Sinus tachycardia Nonspecific ST abnormality Abnormal ECG Electronically signed by : Michael Campo MD 09/20/2021 20:21:34
--- NOTE | 2021-09-18 12:00 | XR_ITS ---
PROCEDURE INFORMATION: Exam: XR Chest Exam date and time: 09/18/2021 12:00 PM Age: 41 years old Clinical indication: Pain; Chest pressure; Additional info: Cough TECHNIQUE: Imaging protocol: XR of the chest. Views: 1 view. COMPARISON: CR XR CHEST PORTABLE 12/31/2020 3:54 PM FINDINGS: Lungs: Unremarkable. No consolidation. Pleural spaces: Unremarkable. No pleural effusion. No pneumothorax. Heart/Mediastinum: Unremarkable. No cardiomegaly. Bones/joints: Unremarkable. IMPRESSION: No acute findings.
--- NOTE | 2021-09-18 12:11 | HMH.EDGENADL ---
ED Disposition Clinical Impression: Nonspecific chest pain Hypertension Qualifiers: Hypertension type: primary hypertension Qualified Code(s): I10 - Essential (primary) hypertension Disposition: Home, Self-Care Condition on Discharge: Good Instructions: DI for High Blood Pressure Referrals: Provider,Referral, [Referring] - Sarita Gómez PA [Physician Pbx Supervisor] - - Critical Care Critical Care Time: No Attestation: On 09/18/21, the high probability of a clinically significant, sudden or life threatening deterioration of the following system(s) required my full and direct attention, intervention and personal management. The time I documented below is in addition to time spent performing reported procedures but includes the following listed in this critical care notation. Medical Decision Making - Medical Records Medical records reviewed: Yes: I reviewed the patient's medical records. - Amari Inquiry Pt receiving controlled substance: Yes Amari was queried for this patient: Yes Reference #:: [id number] Risks and benefits of using a controlled substance: were discussed with pt by me Vital Signs: 09/18/21 11:58 09/18/21 12:11 09/18/21 13:00 Temperature 98.2 F Temperature Source Oral Pulse Rate 79 Pulse Rate [Right] 116 H Respiratory Rate 16 16 Blood Pressure 198/112 H 143/81 H Blood Pressure [Right Arm] 197/122 H Blood Pressure Mean [Right Arm] 147 Blood Pressure Source Automatic Cuff Blood Pressure Source [Right Arm] Automatic Cuff Blood Pressure Position Sitting Blood Pressure Position [Right Arm] Sitting 02 Sat by Pulse Oximetry 100 98 Oxygen Delivery Method Room Air Room Air 09/18/21 13:59 09/18/21 14:29 Temperature Temperature Source Pulse Rate 77 84 Pulse Rate [Right] Respiratory Rate 16 16 Blood Pressure 141/89 H 141/89 H Blood Pressure [Right Arm] Blood Pressure Mean [Right Arm] Blood Pressure Source Automatic Cuff Automatic Cuff Blood Pressure Source [Right Arm] Blood Pressure Position Sitting Sitting Blood Pressure Position [Right Arm] 02 Sat by Pulse Oximetry 99 100 Oxygen Delivery Method Room Air - Lab Data Lab Results 09/18/21 12:01: WBC 11.4 H, RBC 4.95, Hgb 13.4, Hct 40.6, MCV 82.1, MCH 27.0, MCHC 32.9, RDW 14.9, Plt Count 377, MPV 8.8, Neut % (Auto) 67.6, Lymph % (Auto) 24.7, [place] % (Auto) 4.5, Eos % (Auto) 2.5, Baso % (Auto) 0.6, Neut # (Auto) 7.7, Lymph # (Auto) 2.8, [place] # (Auto) 0.5, Eos # (Auto) 0.3, Baso # (Auto) 0.1 09/18/21 12:01: Troponin I < 0.01, NT-Pro-B Natriuret Pep 102, TSH 2.68 09/18/21 12:02: Sodium 143, Potassium 3.8, Chloride 101, Carbon Dioxide 28, Anion Gap 17.8 H, BUN 11, Creatinine 0.60, Estimated Creat Clear 216, Estimated GFR 111, Est GFR ( Amer) 135, Glucose 98, Calcium 9.8 Result diagrams: 09/18/21 12:01 09/18/21 12:02 Orders (Tests/Meds): ED MEDICATIONS Generic Name Dose Route Start Last Admin Trade Name Freq PRN Reason Stop Dose Admin Sodium Chloride 10 ml 09/18/21 12:52 Sodium Chloride 0.9% 10ml Vial IV 10/18/21 12:51 NEEDED PRN to Dilute Lorazepam inj Discontinued Medications Generic Name Dose Route Start Last Admin Trade Name Freq PRN Reason Stop Dose Admin Iopamidol 100 ml 09/18/21 14:27 09/18/21 14:29 Iopamidol-370 (76%);100ml Bottle IV 09/18/21 14:28 100 ml ONCE ONE Administration Labetalol HCl 10 mg 09/18/21 12:00 09/18/21 12:11 Labetalol 5mg/Ml 20ml Mdv IV 09/18/21 12:01 10 mg ONCE ONE Administration Lorazepam 1 mg 09/18/21 12:52 09/18/21 13:14 Lorazepam 2mg/Ml Vial IV 09/18/21 12:53 1 mg ONCE ONE Administration Morphine Sulfate 4 mg 09/18/21 12:00 09/18/21 12:12 Morphine 4mg/Ml Syringe IV 09/18/21 12:01 4 mg ONCE ONE Administration Sodium Chloride 50 ml 09/18/21 14:27 09/18/21 14:29 0.9 % Sodium Chloride 50 Ml Vial IV 09/18/21 14:28 50 ml ONCE ONE Administration Sodium Chloride 1
[2021-09-18 12:50] LABS: NT Pro Brain Natriuretic Pep. 102 pg/mL (0-125)
--- NOTE | 2021-09-18 12:52 | CT_ITS ---
PROCEDURE INFORMATION: Exam: CTA Chest With Contrast Exam date and time: 09/18/2021 12:52 PM Age: 41 years old Clinical indication: Pain; Chest pressure; Patient HX: Previous surgery- gallbladder, appendix and gastric bypass -- no chest surgery; Additional info: Pain, chest pain, headache and elevated blood pressure TECHNIQUE: Imaging protocol: Computed tomographic angiography of the chest with contrast. 3D rendering (Not supervised by radiologist): MIP and/or 3D reconstructed images were created by the technologist. Radiation optimization: All CT scans at this facility use at least one of these dose optimization techniques: automated exposure control; mA and/or kV adjustment per patient size (includes targeted exams where dose is matched to clinical indication); or iterative reconstruction. Contrast material: ISOVUE 370; Contrast volume: 100 ml; Contrast route: INTRAVENOUS (IV); COMPARISON: CT ANGIO CHEST 08/31/2020 1:56 PM FINDINGS: Pulmonary arteries: Negative for acute pulmonary embolism. Aorta: Negative for aortic dissection or aneurysm. Lungs: Unremarkable. No consolidation. No masses. Pleural spaces: Unremarkable. No pneumothorax. No pleural effusion. Heart: Unremarkable. No cardiomegaly. No pericardial effusion. Lymph nodes: Unremarkable. No enlarged lymph nodes. Stomach and bowel: Previous gastric bypass surgery. Bones/joints: Unremarkable. No acute fracture. Soft tissues: Unremarkable. IMPRESSION: 1. Negative for aortic dissection or aneurysm. 2. Negative for acute pulmonary embolism.
[2021-09-18 13:11] LABS: Thyroid Stimulating Hormone 2.68 uIU/mL (0.465-4.68)
[2021-09-18 13:15] LABS: Troponin I < 0.01 ng/ml (0.00-0.034)
[2021-09-18 13:20] LABS: Basophils # 0.1 K/mm3 (0-0.2); Basophils % 0.6 % (0.1-2.0); Eosinophils # 0.3 K/mm3 (0.0-0.4); Eosinophils % 2.5 % (0.1-12.0); Hematocrit 40.6 % (37.0-47.0); Hemoglobin 13.4 g/dL (12.2-16.2); Lymphocytes # 2.8 K/mm3 (0.7-4.5); Lymphocytes % 24.7 % (10-50); Mean Corpuscular HGB Conc 32.9 g/dL (31.8-35.4); Mean Corpuscular Volume 82.1 fl (81-99); Mean Platelet Volume 8.8 fl (7.4-10.4); Monocytes # 0.5 K/mm3 (0.1-1.0); Monocytes % 4.5 % (1.7-9.3); Neutrophils # 7.7 K/mm3 (1.8-7.8); Neutrophils % 67.6 % (37.0-80.0); Platelet Count 377 K/mm3 (142-424); Red Blood Count 4.95 M/mm3 (4.20-5.40); Red Cell Distribution Width 14.9 % (11.5-17.5); White Blood Count 11.4 K/mm3 (4.8-10.8)
[2021-09-18 14:07] LABS: Chloride 101 mmol/L (98-107); Potassium 3.8 mmoL/L (3.5-5.1); Sodium 143 mmol/L (136-145)
[2021-09-18 14:10] LABS: Blood Urea Nitrogen 11 mg/dl (7-17); Creatinine Clearance Estimated 216 mL/min (50-200); Estimated Glomerular Filt Rate 111 ml/min (>60); GFR (African American) 135 ML/MIN (>60)
[2021-09-18 14:11] LABS: Anion Gap 17.8 mEq/L (5-15); Calcium 9.8 mg/dl (8.4-10.2); Carbon Dioxide 28 mmol/L (22.0-30.0); Glucose 98 mg/dl (74-100)
--- NOTE | 2021-09-18 14:16 | PC.NURSE ---
pt to CT
--- NOTE | 2021-09-18 14:27 | PC.NURSE ---
Pt return from CT
== END 2021-09-18 15:20 | disposition home or self-care (01) ==
PROVIDERS: Emergency Provider Emergency Medicine; PCP Emergency Medicine
DX: R07.89 Other chest pain (principal); I10 Essential (primary) hypertension; K21.9 Gastro-esophageal reflux disease without esophagitis; J45.909 Unspecified asthma, uncomplicated; Z79.899 Other long term (current) drug therapy
CPT/HCPCS: 71045; 71275; 80048; 83880; 84443; 84484; 85025; 93005; 96374; 96375; 99284; Q9967

== ENCOUNTER 2021-09-21 09:19 | Emergency (ER) | payer OTHER, SELFPAY ==
--- NOTE | 2021-09-21 09:19 | ECG_ITS ---
APPROVED REPORT Exam: Resting ECG HR:111 bpm ECG Measurements Heart Rate 111 AXES WI 128 P 61 QRSd 78 QRS 66 QT 318 T 35 QTc 432 Conclusion Sinus tachycardia Possible Left atrial enlargement Borderline ECG Electronically signed by : Michael Campo MD 09/21/2021 22:08:56
[2021-09-21 09:22] VITALS: BP 160/100; PULSE 104; RESP 18; TEMP 36.8; O2SAT 99; BMI 39.9
[2021-09-21 10:00] VITALS: BP 154/93; PULSE 98; RESP 14; O2SAT 97
--- NOTE | 2021-09-21 10:05 | HMH.EDGENADL ---
ED Disposition Clinical Impression: Atypical chest pain Hypertension Qualifiers: Hypertension type: primary hypertension Qualified Code(s): I10 - Essential (primary) hypertension Disposition: Home, Self-Care Condition on Discharge: Fair Instructions: DI for High Blood Pressure, DI for Atypical Chest Pain Additional Instructions: Protonix as prescribed. Metoprolol as prescribed. Follow-up with your primary care provider, call for appointment. Follow-up with cardiology, call for appointment. Additional instructions for CHEST PAIN: See your physician as soon as possible for further evaluation. Return immediately if worsening chest pain, vomiting, shortness of breath, fever, coughing of blood. Prescriptions: Metoprolol Succinate [Metoprolol Succinate 50mg Tablet*] 50 mg PO DAILY #30 tab Transmission Status: Received by [id number] Pantoprazole Sodium [Protonix 40mg tablet] 40 mg PO DAILY #15 tab Transmission Status: Received by [id number] Referrals: Sarita Gómez PA [Primary Care Provider] - - Critical Care Critical Care Time: No Attestation: On 09/21/21, the high probability of a clinically significant, sudden or life threatening deterioration of the following system(s) required my full and direct attention, intervention and personal management. The time I documented below is in addition to time spent performing reported procedures but includes the following listed in this critical care notation. Medical Decision Making - Amari Inquiry Pt receiving controlled substance: Yes Amari was queried for this patient: Yes Risks and benefits of using a controlled substance: were not discussed with pt by me Vital Signs: 09/21/21 09:22 09/21/21 10:00 09/21/21 10:30 Temperature 98.3 F Temperature Source Oral Pulse Rate 98 H 95 H Pulse Rate [Right Radial] 104 H Respiratory Rate 18 14 18 Blood Pressure 154/93 H 175/106 H Blood Pressure [Right Arm] 160/100 H Blood Pressure Mean [Right Arm] 120 Blood Pressure Source [Right Arm] Automatic Cuff Blood Pressure Position [Right Arm] Sitting 02 Sat by Pulse Oximetry 99 97 100 Oxygen Delivery Method Room Air 09/21/21 11:30 09/21/21 12:21 09/21/21 12:32 Temperature 98.1 F Temperature Source Pulse Rate 79 83 103 H Pulse Rate [Right Radial] Respiratory Rate 16 18 18 Blood Pressure 152/101 H 149/96 H 149/89 H Blood Pressure [Right Arm] Blood Pressure Mean [Right Arm] Blood Pressure Source [Right Arm] Blood Pressure Position [Right Arm] 02 Sat by Pulse Oximetry 94 L 97 Oxygen Delivery Method - Lab Data Lab Results 09/21/21 09:30: WBC 10.5, RBC 4.94, Hgb 13.4, Hct 40.4, MCV 81.9, MCH 27.1, MCHC 33.1, RDW 14.8, Plt Count 446 H, MPV 8.7, Neut % (Auto) 65.9, Lymph % (Auto) 26.8, [place] % (Auto) 4.1, Eos % (Auto) 1.9, Baso % (Auto) 1.3, Neut # (Auto) 6.9, Lymph # (Auto) 2.8, [place] # (Auto) 0.4, Eos # (Auto) 0.2, Baso # (Auto) 0.1 09/21/21 09:30: Sodium 142, Potassium 3.9, Chloride 105, Carbon Dioxide 30, Anion Gap 10.9, BUN 7 D, Creatinine 0.50 L, Estimated Creat Clear 260, Estimated GFR 137, Est GFR ( Amer) 166 D, Glucose 93, Calcium 9.4, Troponin I < 0.01 Result diagrams: 09/21/21 09:30 09/21/21 09:30 Orders (Tests/Meds): ED MEDICATIONS Discontinued Medications Generic Name Dose Route Start Last Admin Trade Name Freq PRN Reason Stop Dose Admin Belladonna Alkaloids 60 ml 09/21/21 10:45 09/21/21 11:06 Gi Cocktail 60ml Udc PO 09/21/21 10:46 60 ml ONCE ONE Administration Ketorolac Tromethamine 30 mg 09/21/21 10:13 09/21/21 12:00 Ketorolac 30mg/Ml Vial IV 09/21/21 10:14 30 mg ONCE ONE Administration Lorazepam 1 mg 09/21/21 10:12 09/21/21 12:00 Lorazepam 2mg/Ml Vial IV 09/21/21 10:13 1 mg ONCE ONE Administration Metoprolol Tartrate 50 mg 09/21/21 10:19 09/21/21 11:06 Metoprolol Tartrate 50mg Tablet PO 09/21/21 10:20 5
[2021-09-21 10:08] LABS: Basophils # 0.1 K/mm3 (0-0.2); Basophils % 1.3 % (0.1-2.0); Eosinophils # 0.2 K/mm3 (0.0-0.4); Eosinophils % 1.9 % (0.1-12.0); Hematocrit 40.4 % (37.0-47.0); Hemoglobin 13.4 g/dL (12.2-16.2); Lymphocytes # 2.8 K/mm3 (0.7-4.5); Lymphocytes % 26.8 % (10-50); Mean Corpuscular HGB Conc 33.1 g/dL (31.8-35.4); Mean Corpuscular Hemoglobin 27.1 pg (27.0-31.2); Mean Corpuscular Volume 81.9 fl (81-99); Mean Platelet Volume 8.7 fl (7.4-10.4); Monocytes # 0.4 K/mm3 (0.1-1.0); Monocytes % 4.1 % (1.7-9.3); Neutrophils # 6.9 K/mm3 (1.8-7.8); Neutrophils % 65.9 % (37.0-80.0); Platelet Count 446 K/mm3 (142-424); Red Blood Count 4.94 M/mm3 (4.20-5.40); Red Cell Distribution Width 14.8 % (11.5-17.5); White Blood Count 10.5 K/mm3 (4.8-10.8)
[2021-09-21 10:12] LABS: Anion Gap 10.9 mEq/L (5-15); Blood Urea Nitrogen 7 mg/dl (7-17); Calcium 9.4 mg/dl (8.4-10.2); Carbon Dioxide 30 mmol/L (22.0-30.0); Chloride 105 mmol/L (98-107); Creatinine Clearance Estimated 260 mL/min (50-200); Estimated Glomerular Filt Rate 137 ml/min (>60); GFR (African American) 166 ML/MIN (>60); Glucose 93 mg/dl (74-100); Potassium 3.9 mmoL/L (3.5-5.1); Sodium 142 mmol/L (136-145)
--- NOTE | 2021-09-21 10:16 | PC.NURSE ---
Dr Cruz speaking with Jean-Claude Warner
--- NOTE | 2021-09-21 10:19 | CA_ITS ---
APPROVED REPORT EXAM: Comprehensive 2D, Doppler, and color-flow Echocardiogram Computer Language Coder: Vaishali Oconnell RVT Ht: 5 ft 5 in Wt: 240lbs BSA: 2.14 BP: 160/100 mmHg Indications: CP,ASTHMA,GERD,HTN,HX BARIATIC SURGERY 2D Dimensions LA Volume 19.40 mL LA Volume Index 9.10 mL/m2 (M/F) 16-34 M-Mode Dimensions RVDd 1.98 cm (0.9-2.6) LA Diam 3.81 cm (1.9-4.0) LVDd 5.52 cm (3.5-5.7) Ao Diam 2.97 cm (2.0-3.7) LVDs 3.65 cm (3.5-5.7) IVSd 0.88 cm (0.6-1.1) PWd 0.72 cm (0.6-1.1) EF (Teich) 62.10% FS 33.90% EDV (Teich) 148.70 mL TAPSE 2.34 (<1.7) ESV (Teich) 56.30 mL LV Diastology E Decel Time 60.00 (160-240 msec) E/A Ratio 1.0 MED E' 7.70 (< 7 cm/sec) E'/MED E' Ratio 8.75 (>14) LAT E' 10.00 (<10 cm/sec) E/LAT E' Ratio 6.74 (>14) Mitral Valve MV E Max Bobby. 67.00 (40-130 cm/s) MV A Velocity 70.00 (40-130 cm/s) E/A Ratio 0.96 MV Decel. Time 60.00 (160-240 ms) MV PHT 18.00 ms Pulmonary Valve PV Peak Velocity 101.00 (50-150 cm/s) Tricuspid Valve TR P. Velocity 144.00 cm/s RAP Estimate 10.00 mmHg RVSP 18.30 mmHg Left Ventricle Left atrium is mildly enlarged, left ventricle is normal size, mild concentric left ventricular hypertrophy, visually estimated ejection fraction 55% with no regional wall motion abnormality, grade 1 diastolic dysfunction seen without tissue Doppler evidence of raise left atrial pressure. Right Ventricle Right atrium and right ventricle are normal size and contractility. Aortic Valve Aortic valve is grossly normal, there is no aortic stenosis or aortic insufficiency. Mitral Valve Mitral valve is grossly normal, there is trace mitral regurgitation. Tricuspid Valve Tricuspid valve grossly normal, there is trace tricuspid regurgitation, tricuspid regurgitation jet velocity is inadequate for calculation of the right ventricular systolic pressure. Pulmonic Valve Pulmonic valve is poorly visualized. Great Vessels Aortic root is normal size. Inferior vena cava is normal size with normal inspiratory collapse. Pericardium No significant pericardial effusion noted. Conclusion 1. Normal left ventricular size, mild concentric left ventricular hypertrophy, visually estimated ejection fraction 55% with no regional wall motion abnormality, grade 1 diastolic dysfunction seen without tissue Doppler evidence of raise left atrial pressure. 2. Trace mitral and tricuspid regurgitation. 3. No significant pericardial effusion 4. Inferior vena cava is normal size with normal inspiratory collapse. Electronically signed by : Arie Wilkerson MD 09/21/2021 19:07:08
[2021-09-21 10:27] LABS: Troponin I < 0.01 ng/ml (0.00-0.034)
[2021-09-21 10:30] VITALS: BP 175/106; PULSE 95; RESP 18; O2SAT 100
--- NOTE | 2021-09-21 10:33 | PC.NURSE ---
Jean-Claude Warner in with Pt.
--- NOTE | 2021-09-21 10:57 | PC.NURSE ---
Vascular was here to do ECHO
--- NOTE | 2021-09-21 11:06 | HMH.CNCARD ---
History of Present Illness Consult date: 09/21/21 Requesting physician: Vicente Cruz Consult reason: chest pain, hypertension Chief complaint: CP, High BP Additional Medical History:: 1. History of bariatric surgery, 2010 with subsequent 200 pound weight loss to a weight of 200 pounds 2. History of hepatitis A approximately 3. History of gastroesophageal reflux and Chavez's esophagus by EGD, approximately 4. Status post bilateral knee surgeries 5. 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 Jimenez for pain relief 6. Family history of early heart disease in parents and siblings prior to the age of 60 including mother that of congestive heart failure and a sibling with bypass in approximately 40 years of age 7. History of anemia with prior EGD and colonoscopy in without etiology 8. History of asthma A. PFTs, 01/2021, essentially normal 9. Chest pain, 09/18/2021 and 09/21/2021 A. CTA of chest, 09/18/2021, negative for aortic dissection, dilatation or pulmonary embolus. B. Troponins negative, 09/18/2021 and 09/21/2021 C. Echocardiogram, 09/21/2021, preliminary report reveals normal ejection fraction with no pericardial effusion D. Chest pain resolved with combination of GI cocktail and sublingual nitroglycerin History of present illness: 41-year-old white female sent to the emergency department by PCP for further evaluation of chest pain and elevated blood pressure. States that she has been having trouble with her blood pressure for about 2 weeks. She says that she had a procedure by Dr. Jimenez to burn some nerves in her back for chronic back pain and at that time blood pressure was discovered to be high. She was referred to a primary care doctor for evaluation. No prior history of hypertension. She has been seeing a primary care provider, they have not started on any medications. On Monday, she started having intermittent sharp stabbing sternal chest pains that last about 30 to 45 seconds. She came to the emergency department for that and her blood pressure. She had an extensive work-up including CTA of the chest. Work-up was unremarkable. She was given intravenous labetalol, she was given morphine and Ativan. She was told to follow-up with her primary care provider today. She saw Sarita Gómez, her PCP, today in the office and was still having chest pain and blood pressure was elevated. Sarita called Dr. Rosenthal's office and she was advised to have the patient sent to the emergency department and they would consult on her here. She has no prior history of heart disease. She is a non-smoker. Her mother had congestive heart failure and a couple of uncles had heart attacks. She does not have hyperlipidemia or diabetes. She denies drug use. The above per Dr. Cruz Patient confirms the account as noted above Upon further questioning she relates gastric bypass 11 years ago but had a bout of hepatitis and ulcerative disease approximately a year and 1/2 to 2 years ago for which she underwent an EGD and colonoscopy noting that she was told she had Chavez's esophagitis at that time as well. She was supposed to follow-up for repeat endoscopy but due to Covid was unable to do so. Chest pain is not related to exertion. Symptoms are isolated to the center of her chest and radiating to the back. She denies alcohol or drug use. She stopped her Adipex which she had been previously on in preparation for the back procedure earlier this month. Echocardiogram being performed during my visit to the ER to see the patient with normal cardiac function noted and no evidence of significant valve disease or pericardial effusion. Lab work from today shows normal hemoglobin hematocrit with mildly elevated platelets at 446,000. Renal function is normal and initial troponin is normal. EKG today is sinus rhythm at a rate of 111 bpm. [facility] History Medical History: Reports:: Asthma, Gastroesophageal Reflux
--- NOTE | 2021-09-21 11:07 | PC.NURSE ---
lopressor and GI cocktail given we are holding the other for right now
[2021-09-21 11:30] VITALS: BP 152/101; PULSE 79; RESP 16; O2SAT 94
[2021-09-21 12:21] VITALS: BP 149/96; PULSE 83; RESP 18; TEMP 36.7; O2SAT 95
[2021-09-21 12:32] VITALS: BP 149/89; PULSE 103; RESP 18; O2SAT 97
== END 2021-09-21 12:49 | disposition home or self-care (01) ==
PROVIDERS: Emergency Provider Emergency Medicine; PCP Physician Assistant
DX: R07.89 Other chest pain (principal); R42 Dizziness and giddiness; I10 Essential (primary) hypertension; K21.9 Gastro-esophageal reflux disease without esophagitis; J45.909 Unspecified asthma, uncomplicated; Z88.0 Allergy status to penicillin
CPT/HCPCS: 80048; 84484; 85025; 93005; 93306; 96374; 96375; 99283; J2405

== ENCOUNTER → 2021-10-05 09:52 | Outpatient (CLI) | payer OTHER, SELFPAY ==
[2021-10-05 10:25] LABS: Basophils # 0.1 K/mm3 (0-0.2); Basophils % 0.7 % (0.1-2.0); Eosinophils # 0.3 K/mm3 (0.0-0.4); Hematocrit 40.5 % (37.0-47.0); Hemoglobin 13.2 g/dL (12.2-16.2); Lymphocytes # 2.7 K/mm3 (0.7-4.5); Mean Corpuscular HGB Conc 32.6 g/dL (31.8-35.4); Mean Corpuscular Hemoglobin 27.3 pg (27.0-31.2); Mean Corpuscular Volume 83.7 fl (81-99); Mean Platelet Volume 9.3 fl (7.4-10.4); Monocytes # 0.5 K/mm3 (0.1-1.0); Monocytes % 4.7 % (1.7-9.3); Neutrophils # 6.1 K/mm3 (1.8-7.8); Neutrophils % 63.6 % (37.0-80.0); Platelet Count 362 K/mm3 (142-424); Red Blood Count 4.84 M/mm3 (4.20-5.40); Red Cell Distribution Width 15.2 % (11.5-17.5); White Blood Count 9.7 K/mm3 (4.8-10.8)
[2021-10-05 11:04] LABS: Chloride 103 mmol/L (98-107); Potassium 4.2 mmoL/L (3.5-5.1); Sodium 141 mmol/L (136-145)
[2021-10-05 11:06] LABS: Amylase 45 U/L (30-110); Blood Urea Nitrogen 12 mg/dl (7-17); Estimated Glomerular Filt Rate 111 ml/min (>60); GFR (African American) 135 ML/MIN (>60)
[2021-10-05 11:07] LABS: Alanine Aminotransferase 14 U/L (12-78); Albumin Level 4.6 g/dl (3.5-5.0); Albumin/Globulin Ratio 1.6 (1.1-1.8); Alkaline Phosphatase 98 U/L (38-126); Anion Gap 13.2 mEq/L (5-15); Aspartate Amino Transferase 26 U/L (14-36); Bilirubin,Total 0.5 mg/dl (0.2-1.3); Calcium 10.2 mg/dl (8.4-10.2); Carbon Dioxide 29 mmol/L (22.0-30.0); Cholesterol 203 mg/dl (140-200); Globulin 2.9 g/dL (1.3-3.2); Glucose 93 mg/dl (74-100); HDL Cholesterol 79 mg/dl (40-60); Lipase 54 U/L (23-300); Total Protein,Serum 7.5 g/dl (6.3-8.2); Triglycerides 170 mg/dl (30-150); VLDL Cholesterol 34 mg/dL (0-40)
[2021-10-05 11:11] LABS: Chol/HDL Ratio 2.6 (1-3.5)
[2021-10-05 11:20] LABS: Direct LDL Cholesterol 94.04 mg/dL (100-129)
[2021-10-05 11:25] LABS: 25-OH Vitamin D, Total 34.2 ng/mL (30-100)
[2021-10-06 13:23] LABS: H. pylori Breath Test Negative (Negative)
== END ==
PROVIDERS: Visit Provider Physician Assistant
DX: R07.9 Chest pain, unspecified (principal); I10 Essential (primary) hypertension; E66.9 Obesity, unspecified; Z68.41 Body mass index [BMI] 40.0-44.9, adult
CPT/HCPCS: 36415; 80053; 80061; 82150; 82306; 83013; 83690; 84443; 85025

== ENCOUNTER → 2021-10-07 09:22 | Outpatient (POV) | payer OTHER, SELFPAY ==
--- NOTE | 2021-10-07 09:40 | HMH.PAINSOAP ---
[facility] Pain Management SOAP Note Subjective:: Patient is a pleasant 41-year-old female comes in today for follow-up after a lumbar RFA on 09/10/2021. Patient is currently being treated for degenerative disc disease of the lumbar spine with lumbar facet arthropathy and lumbar spondylosis. After the procedure, patient states that she had about 75 to 85% relief. She rates her pain today as 4 out of 10. She denies any issues after the procedure. Today, patient is complaining of left hip pain with prolonged sitting, walking, and getting up from a sitting position. Patient states that the pain is localized to her left SI and pain radiates to the left knee. Patient says that she had a previous SI injection about 2 years ago that helped her tremendously. Patient is also being managed with tramadol 50 mg three times a day gabapentin 300 mg four times a day and tizanidine three times a day, she would like refills on these medications. She denies any side effects from this medication. Her Theresa is [id number] equivalent of 15. Review of Systems General: No recent weight changes, no fever, no sleep disturbances Respiratory: No cough, no shortness of air, no recurring pulmonary infections Cardiovascular/peripheral vascular: No chest pain, no palpitations, no edema, no shortness of breath Gastrointestinal: No new onset incontinence, normal bowel movements reported Genitourinary: No new onset incontinence Musculoskeletal: Low back pain, left hip pain Psychiatric: [Normal mood/affect] Neurological: [Denies weakness in extremities], [denies balance issues] Objective:: Physical exam General: Alert and oriented x3, no acute distress, pleasant and cooperative Lungs: Respirations even and unlabored, symmetrical chest expansion Eyes: PERRL Musculoskeletal: Flexion and extension of lumbar [spine] somewhat guarded secondary to pain, [antalgic gait noted]; Left Hip: +gayle, +derek, +compression and distraction Neurological: Speech clear, no gross sensory deficit Assessment:: Degenerative disease of lumbar spine with lumbar facet arthropathy Lumbar spondylosis Left Sacroiliitis Plan:: Based on the patient's signs/symptoms, we will schedule the patient for a left SI injection. Risks and benefits of this procedure have been discussed with the patient. Patient is currently not on any blood thinners. We will refill the patient's tramadol 50 mg three times a day, gabapentin 300 mg four times a day, tizanidine three times a day. We will provide the patient with 3 months of refills. Risks and benefits of the medication have been explained in detail to the patient. The patient does understand the risk of dependence on the medication when given over a prolonged period. Patient has been advised of risks of oversedation with the prescribed medication. Narcan has been offered to the paitent in the event of oversedation. Patient has been advised that a family member should also be educated regarding administration of Narcan. The patient has been advised to consult with his/her primary care provider and pharmacist regarding drug-drug interaction of medications currently prescribed. Patient has been prescribed a controlled substance after being counseled on the medication, medication safety, and possible side effects. THERESA report has been obtained and reviewed prior to prescription and found to be appropriate. Opioid contract was reviewed and signed by the patient, and that they have agreed to all of the terms set forth by our compliance program. Patient has been instructed to contact the clinic with any concerns before the next appointment. Dr. Jimenez has reviewed this note and agrees with this plan of care. This note was dictated using voice recognition software and make contain errors or omissions. [facility] History Medical History: Reports:: Asthma, Gastroesophageal Reflux Disease(GERD), Hepatitis, Hypertension, Kidney Stones, Urinary
[2021-10-07 09:52] VITALS: BP 151/92; PULSE 80; RESP 18; O2SAT 99; BMI 39.9
== END ==
PROVIDERS: Visit Provider Clinical Nurse Specialist Family Health
DX: M51.36 Other intervertebral disc degeneration, lumbar region (principal); M47.816 Spondylosis without myelopathy or radiculopathy, lumbar region; M54.06 Panniculitis affecting regions of neck and back, lumbar region; M46.1 Sacroiliitis, not elsewhere classified
CPT/HCPCS: 99212; G0463

== ENCOUNTER → 2021-10-13 12:52 | Outpatient (CLI) | payer OTHER, SELFPAY | PROVIDERS: PCP Emergency Medicine; Visit Provider Physician Assistant | DX: R51.9 Headache, unspecified (principal); G47.9 Sleep disorder, unspecified; G47.00 Insomnia, unspecified; R06.83 Snoring; R53.83 Other fatigue | CPT/HCPCS: 95806 ==

== ENCOUNTER → 2021-10-20 07:22 | Outpatient (CLI) | payer OTHER, SELFPAY ==
--- NOTE | 2021-10-20 07:23 | CT_ITS ---
PROCEDURE: CT CHEST WO CON CLINICAL INDICATION: chest pain COMPARISON: CT CT ANGIO CHEST from 09/18/2021 TECHNIQUE: Axial images obtained with sagittal and coronal reformats. All CT scans at the facility use one or more dose reduction, viz: automated exposure control, ma/kV adjustment per patient size (including targeted exams where dose is matched to indication, i.e. head), or iterative reconstruction technique. The FINDINGS: HEART AND MEDIASTINAL STRUCTURES: Mild prominence of the thyroid gland. Coronary artery calcification. No mediastinal mass. No mediastinal or hilar adenopathy. LUNGS AND PLEURAL SPACES: 3 mm noncalcified nodule right middle lobe unchanged. Calcified granuloma right lower lobe anteriorly. Scarring in the left lung base unchanged. 3 mm nodular opacity along the major fissure on the left nonspecific. No suspicious pulmonary nodules. No effusions or infiltrates. BONY STRUCTURES: No acute bony abnormalities apparent. UPPER ABDOMEN: Prior gastric bypass ADDITIONAL FINDINGS: Scattered small axillary nodes. IMPRESSION: No significant change with no acute finding. Nonacute findings as detailed above. Dictated by: Mir Geller MD 10/21/2021 08:06 Mir Geller MD in [place] 10/21/2021 08:06
--- NOTE | 2021-10-20 07:32 | CA_ITS ---
APPROVED REPORT Top Waddy: JORDAN Study Quality: Good, Due to body habitus. Indications: HTN Risk Factors Hypertension Renal Artery Doppler Origin (R) 99.9/ cm/sec Proximal (R) 121.2/ cm/sec Mid (R) 160.5/ cm/sec Distal (R) 139.7/ cm/sec Renal Aorta Ratio (R) 1.43 Segmental A. (R) / cm/sec RI: 0.60 Segmental A. Sup (R) 36.0/14.0 cm/sec Segmental A. Mid (R) 27.0/10.0 cm/sec Segmental A. Inf (R) 31.0/31.0 cm/sec Origin (L) 109.8/ cm/sec Proximal (L) 124.0/ cm/sec Mid (L) 131.3/ cm/sec Distal (L) 141.4/ cm/sec Renal Aorta Ratio (L) 1.25 Segmental A. (L) / cm/sec RI: 0.60 Segmental A. Sup (L) 35.0/14.0 cm/sec Segmental A. Mid (L) 30.0/13.0 cm/sec Segmental A. Inf (L) 37.0/15.0 cm/sec Renal Measurements Kidney Size (R) 11.2x4.0 cm Cortical Thickness (R) 1.4 cm Kidney Size (L) 11.6x6.0 cm Cortical Thickness (L) 1.5 cm Findings An attempt was made to evaluate the abdominal aorta, the right and left renal arteries and kidneys, utilizing duplex ultrasonography and color flow doppler. The proximal abdominal aorta is patent without significant stenoses or dilatations. Conclusion An attempt was made to evaluate the abdominal aorta, the right and left renal arteries and kidneys, utilizing duplex ultrasonography and color flow doppler. The proximal abdominal aorta is patent without significant stenoses or dilatations. No evidence of renal artery stenosis Electronically signed by : Mir Geller MD 10/21/2021 16:15:46
== END ==
PROVIDERS: PCP Emergency Medicine; Visit Provider Physician Assistant
DX: R07.9 Chest pain, unspecified (principal); I10 Essential (primary) hypertension
CPT/HCPCS: 71250; 93976

== ENCOUNTER 2021-10-22 10:41 | Day surgery (SDC) | payer OTHER, SELFPAY ==
[2021-10-22 10:30] VITALS: BP 131/89; PULSE 88; RESP 20; O2SAT 99
[2021-10-22 10:47] VITALS: BP 143/84; PULSE 87; RESP 18; TEMP 36.9; O2SAT 100; BMI 36.6
[2021-10-22 11:16] VITALS: BP 148/86; PULSE 90; RESP 18; O2SAT 99
[2021-10-22 11:24] VITALS: PULSE 88; RESP 18; O2SAT 100
--- NOTE | 2021-10-22 11:26 | HMH.PMPROC ---
- Procedure Date: 10/22/21 Time: 11:26 Anesthesiologist:: Chantal Bass MD Complications:: None Pre-procedure Diagnosis:: Left-sided sacroiliitis, left-sided hip pain, left-sided chronic low back pain Post-procedure Diagnosis:: Same Indications for Procedure:: This patient is a very pleasant 41-year-old white female who presents today with chronic left-sided low back pain and hip pain related to the above diagnosis. She is gentle conservative treatment including oral pain medications and home stretching program for greater than 6 weeks. She is currently taking tramadol 50 mg 3 times daily and gabapentin 300 mg 4 times a day as well as tizanidine 3 times a day which she states is helping somewhat with her pain relief. The plan for today is for the patient to undergo left-sided SI joint injection under fluoroscopy #1. Procedure Details:: Left SI joint injection under fluoroscopy Informed consent was obtained and the risks and benefits of the procedure was explained to the patient. Patient was taken to the procedure room. Patient was placed prone on the procedure table. The left hip was prepped using ChloraPrep. The skin and subcutaneous tissues were anesthetized using lidocaine. I placed a 22-gauge spinal needle into the inferior aspect of the left SI joint. Needle placement was confirmed with dye. After this we injected 5 mL bupivacaine 0.25% and Depo-Medrol 40 mg into the left SI joint. The patient tolerated the procedure well with no complication. Plan and Disposition:: We will follow-up with this patient in 2 weeks. Will reevaluate pain symptoms at that time
== END 2021-10-22 11:30 | disposition home or self-care (01) ==
LOC: SC.PAINP 10:42
PROVIDERS: PCP Emergency Medicine; Visit Provider Anesthesiology Pain Medicine
DX: M46.1 Sacroiliitis, not elsewhere classified (principal); M54.59 Other low back pain; G89.29 Other chronic pain; I10 Essential (primary) hypertension; J45.909 Unspecified asthma, uncomplicated; K21.9 Gastro-esophageal reflux disease without esophagitis; Z88.0 Allergy status to penicillin; Z88.1 Allergy status to other antibiotic agents; Z79.899 Other long term (current) drug therapy
CPT/HCPCS: 62323; J1040; Q9966

== ENCOUNTER → 2021-10-27 12:28 | Outpatient (CLI) | payer OTHER, SELFPAY | PROVIDERS: PCP Physician Assistant; Visit Provider Nurse Practitioner | DX: U07.1 COVID-19 (principal) | CPT/HCPCS: C9803; U0003; U0005 ==

== ENCOUNTER 2021-11-09 12:20 | Emergency (ER) | payer OTHER, SELFPAY ==
[2021-11-09 14:20] VITALS: BP 140/97; PULSE 99; RESP 20; TEMP 36.4; O2SAT 100; BMI 39.9
--- NOTE | 2021-11-09 15:11 | HMH.EDUTC ---
[facility] Disposition Clinical Impression: Bronchitis Disposition: Home, Self-Care Condition on Discharge: Good Instructions: DI for Cough -- Adult, Prednisone, Azithromycin Additional Instructions: Make sure that you are drinking plenty of water and gatoraid to keep yourself hydrated Make sure you are taking deep breaths ? Start antibiotic today. Be sure to complete entire prescription even if feeling better ? Monitor temp. Tylenol every 4 hours as needed and / or ibuprofen every 6 hours as needed ( As long as your primary care physician has told you that it ok to take both. For fever/aches/pains ER if no less than 101 despite Tylenol or Motrin ? Humidifier/vaporizer or hot steamy shower ? Inhaler every 4-6 hours as needed like we discussed. If unsure how to use it, ask pharmacist to demonstrate how. Should help open airways and improve cough, wheezing, and shortness of breath *Tessalon Perles will not cause drowsiness but use at bedtime to help stop cough so that you may get some rest. *Start steroid today. Helps with inflammation therefore, cough and wheezing. Follow directions on the package. Reviewed side effects. Patient reports taking them before. Follow up IMMEDIATELY for new or worsening of symptoms OR no noticeable improvement over the next 48-72 hours. 911 immediately for any life threatening symptoms such as chest pain or difficulty breathing Use incentive spirometer as you was instructed in the [facility] Prescriptions: Benzonatate [Benzonatate 100mg cap] 100 mg PO Q8HP PRN #15 cap PRN Reason: Cough Transmission Status: Received by [facility] predniSONE [Prednisone 20mg Tab] 20 mg PO BID 5 Days #10 tab Transmission Status: Received by [facility] Azithromycin [Z-Donald 250mg Tab*] 250 mg PO UD DOSE PK #6 tab Transmission Status: Received by [facility] Referrals: Sarita Gómez PA [Primary Care Provider] - As needed Forms: Work/School Release Time of Disposition: 15:20 Medical Decision Making - Amari Inquiry Pt receiving controlled substance: No Amari was queried for this patient: No Vital Signs: 11/09/21 14:20 11/09/21 15:21 Temperature 97.6 F 97.6 F Temperature Source Oral Pulse Rate 99 H Pulse Rate [Right Brachial] 99 H Respiratory Rate 20 20 Blood Pressure 140/97 H Blood Pressure [Right Arm] 140/97 H Blood Pressure Mean [Right Arm] 111 Blood Pressure Source [Right Arm] Automatic Cuff Blood Pressure Position [Right Arm] Sitting 02 Sat by Pulse Oximetry 100 Oxygen Delivery Method Room Air Medical Decision Narrative: Discussed with patient and recommended CXR and patient declined at this time and 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 by RN): PATIENT C/O CHILLS, NO TASTE/SMELL, COUGH, HEADACHE, BODY ACHES. TESTED POSITIVE FOR COVID 10/28/21 HEENT Symptoms (Recalled from RN notes): Yes Resp Symptoms (Recalled from RN notes): Yes Skin Symptoms (Recalled from RN notes): No MS Symptoms (Recalled from RN notes): No Functional Status (Recalled from RN notes): WNL - History of Present Illness Provider Complaint: Patient states that she tested positive for COVID on 10/28 States that she has continued to feel bad States that she has been achy throat sore and scratchy, cough and sinus congestion and pressure State that today she was suppose to be out of quarantine but still not able to taste and smell and pressure in her sinus and was not able to go to work so she came in and wanted a work note - Related Data Home Medications Medication Instructions Recorded Confirmed tizanidine 4 mg tablet 4 mg PO TID PRN 04/08/21 10/27/21 cholecalci
[2021-11-09 15:21] VITALS: BP 140/97; PULSE 99; RESP 20; TEMP 36.4; O2SAT 100
== END 2021-11-09 15:25 | disposition home or self-care (01) ==
PROVIDERS: Emergency Provider Nurse Practitioner; PCP Physician Assistant
DX: J20.9 Acute bronchitis, unspecified (principal); J45.909 Unspecified asthma, uncomplicated; K21.9 Gastro-esophageal reflux disease without esophagitis; I10 Essential (primary) hypertension
CPT/HCPCS: 99202; G0463

== ENCOUNTER 2021-11-10 08:57 | Emergency (ER) | payer OTHER, SELFPAY ==
[2021-11-10 09:35] VITALS: BMI 39.9
--- NOTE | 2021-11-10 09:36 | XR_ITS ---
FINAL REPORT TECHNIQUE: Chest PA & Lateral CLINICAL HISTORY: cough. FINDINGS: 2 views of the chest were performed. The heart size is normal. The mediastinum is within normal limits. There is no acute cardiopulmonary process. There are no pleural effusions. There is no pneumothorax. The bony thorax appears intact. IMPRESSION: No acute cardiopulmonary process. Reviewed, Interpreted and Dictated by José Luis Muñiz MD Transcribed by Yue Tompkins Authenticated by José Luis Muñiz MD on 11/10/2021 12:17:[address] [facility]
[2021-11-10 09:41] VITALS: BP 122/79; PULSE 97; RESP 22; TEMP 36.8; O2SAT 99; BMI 39.9
[2021-11-10 10:32] LABS: UTC Strep Screen (Rapid) Negative (Negative)
[2021-11-10 10:35] LABS: UTC Influenza A Antigen Negative (Negative); UTC Influenza B Antigen Negative (Negative)
--- NOTE | 2021-11-10 10:36 | HMH.EDUTC ---
[facility] [place] Dis[place] Clinical Impression: COVID-19 Disposition: Home, Self-Care Condition on Discharge: Good Instructions: Atypical Pneumonia, DI for COVID-19 (Suspected or Confirmed ), Preventing the Spread of Coronavirus Discharge Instructions Additional Instructions: Drink plenty of fluids. Take tylenol or ibuprofen for pain or fever. Take the medications as directed. Follow up with your regular doctor. GO TO THE ER FOR ANY WORSENING SYMPTOMS The cough medication (promethazine dm) will make you drowsy, so don't drive or operate heavy machinery after taking it. Prescriptions: Promethazine/Dextromethorphan [Promethazine-Dm Syrup] 5 ml PO Q6HP PRN #240 ml PRN Reason: Cough Transmission Status: Received by [facility] Referrals: Sarita Gómez PA [Primary Care Provider] - Time of Disposition: 10:54 Medical Decision Making - Medical Records Medical records reviewed: No: I reviewed the patient's medical records. - Amari Inquiry Pt receiving controlled substance: No Vital Signs: 11/10/21 09:41 11/10/21 11:15 Temperature 98.2 F 98.2 F Temperature Source Oral Pulse Rate 97 H Pulse Rate [Left] 97 H Respiratory Rate 22 22 Blood Pressure 122/79 Blood Pressure [Right Arm] 122/79 Blood Pressure Mean [Right Arm] 93 02 Sat by Pulse Oximetry 99 - Lab Data Lab Results 11/10/21 09:44: Influenza Type A Ag Negative, Influenza Type B Ag Negative 11/10/21 09:44: Strep Scn Rapid Clinic Negative Orders (Tests/Meds): ORDERS Category Date Time Status Strep Screen Confirmation Stat Micro 11/10/21 09:44 Received - Radiology Data #1 Image(s): Chest Image Reviewed: Yes I reviewed the patient's radiology image, Yes I have reviewed radiologist's interpretation Preliminary Findings: Normal/NAD, No Infiltrates Seen FINAL REPORT TECHNIQUE: Chest PA & Lateral CLINICAL HISTORY: cough. FINDINGS: 2 views of the chest were performed. The heart size is normal. The mediastinum is within normal limits. There is no acute cardiopulmonary process. There are no pleural effusions. There is no pneumothorax. The bony thorax appears intact. IMPRESSION: No acute cardiopulmonary process. Reviewed, Interpreted and Dictated by José Luis Muñiz MD Transcribed by Yue Tompkins Authenticated by José Luis Muñiz MD on 11/10/2021 12:17:16 PM [facility] HPI - General Stated complaint: covid symptoms, CXR Time Seen by Provider: 11/10/21 10:37 Mode of Arrival: Ambulatory Source of Information: Patient Limitations: No Limitations Description of Symptoms (Recalled from Triage Doc. by RN): pt was positive for covid on 10/28. pt c/o fever, n/v/d, cough, loss of taste/smell, lung tightness and nasal drainage. HEENT Symptoms (Recalled from RN notes): Yes Resp Symptoms (Recalled from RN notes): Yes Skin Symptoms (Recalled from RN notes): No MS Symptoms (Recalled from RN notes): No Functional Status (Recalled from RN notes): wnl - History of Present Illness Provider Complaint: She was diagnosed with covid-19 on 10/28. She states that she is getting sicker instead of better. She states that she should be off her quarantine and back to work but she is still running a fever and having shortness of breath. - Related Data Home Medications Medication Instructions Recorded Confirmed tizanidine 4 mg tablet 4 mg PO TID PRN 04/08/21 10/27/21 cholecalciferol (vitamin D3) 50 50 mcg PO DAILY 06/08/21 10/27/21 mcg (2,000 unit) tablet Azelastine HCl [Azelastine Nasal 2 spray INTRANASAL BID 09/10/21 10/27/21 [place] 30mL Bottle] Montelukast Sodium [Singulair] 10 mg PO DAILY 09/10/21 10/27/21 Amlodipine Besylate [Amlodipine 10 mg PO DAILY 10/22/21 10/27/21 10mg Tab] Blood Pressure Test Kit [Blood See Rx Instructions .ROUTE DAILY 10/22/21 10/27/21 Pressure Monitor Manual] Metoprolol Succinate [Metoprolol 50 mg PO DAILY 10/22/21 10/27/21 Succinate 50mg Tabl
[2021-11-10 11:15] VITALS: BP 122/79; PULSE 97; RESP 22; TEMP 36.8
== END 2021-11-10 11:19 | disposition home or self-care (01) ==
PROVIDERS: Emergency Provider Nurse Practitioner Family; PCP Physician Assistant
DX: U07.1 COVID-19 (principal); K21.9 Gastro-esophageal reflux disease without esophagitis; I10 Essential (primary) hypertension
CPT/HCPCS: 71046; 87804; 87880; 99202; G0463

== ENCOUNTER → 2021-11-11 11:15 | Outpatient (POV) | payer OTHER, SELFPAY ==
--- NOTE | 2021-11-11 11:31 | P.CONS_ITS ---
[facility] PM Virtual Visit SOAP Consent for virtual visit:: With the recent concerns about the COVID-19, we are trying to minimize exposure to you by shifting to telehealth appointments whenever possible. It restricts me from seeing you in person, but the trade off is protecting you during this pandemic. Can you see and hear me okay, and do you consent to this option? If not, I would be happy to see if we can reschedule your appointment in the future, when feasible. Has patient consented to this virtual visit?: Yes Subjective:: Patient is a 41-year-old white female who is following up after a left sided SI injection. She currently has Covid along with pneumonia. She is not doing very well with respiratory status at this time. She is unable to come into the clinic due to a diagnosis of Covid. We did do a telehealth visit today. She is getting significant relief after the injection. Today, she rates her pain a 3 out of 10. Review of Systems General: No recent weight changes, no fever, no sleep disturbances Respiratory: Cough, shortness of breath, pneumonia, Covid Cardiovascular/peripheral vascular: No chest pain, no palpitations, no edema, no shortness of breath Gastrointestinal: No new onset incontinence, normal bowel movements reported Genitourinary: No new onset incontinence Musculoskeletal: [Intermittent left low back pain, intermittent left hip pain] Psychiatric: [Normal mood/affect] Neurological: [Denies weakness in extremities], [denies balance issues] Objective:: Physical exam General: Alert and oriented x3, no acute distress, pleasant and cooperative Assessment:: Sacroiliitis left, left hip pain Plan:: Patient is doing well following the injection. We will follow up with her once she has improved from Covid. Telehealth visit was performed with patient in her home and with provider and clinic setting. Patient has been instructed to contact the clinic with any concerns before the next appointment. Dr. Jimenez has reviewed this note and agrees with this plan of care. This note was dictated using voice recognition software and make contain errors or omissions. Time In:: 11:15 Time Out:: 20:00 [facility] History I have reviewed the patient's past medical history: Yes Medical History: Reports:: Asthma, Gastroesophageal Reflux Disease(GERD), Hepa titis, Hypertension, Kidney Stones, Urinary Tract Infection Denies:: Cancer, Diabetes Mellitus Type 1, Diabetes Mellitus Type 2, Internal Pacemaker, MRSA, Seizures *Have you ever received a pneumonia vaccine?: No *Have you received a flu vaccine this season?: No Other Medical History: Reports: Other. Denies: Blood Transfusion Reaction Laterality Cases: Bilateral: Myringotomy (Ear Tubes), Tonsillectomy Other Surgeries: Yes: Appendectomy, Bariatric Surgery, Cholecystectomy, Hysterectomy-Total, Hysterectomy-Partial. No: Pacemaker Amputation: No Fractures: Yes (Tibia) - *Social History Smoking Status: Never smoker Alcohol Intake: never Alcohol Intake Frequency:: holidays/special occasions only Substance Use Type: denies use *Occupational Status:: employed Housing: house Household Members: significant other *Travel in the last 8 weeks: None Family Hx:: Diabetes, Hypertension, Hyperlipidemia, Kidney Disease, Asthma, Other, Thyroid Disorder
== END ==
PROVIDERS: Visit Provider Clinical Nurse Specialist Family Health
DX: M46.1 Sacroiliitis, not elsewhere classified (principal)
CPT/HCPCS: 99212; G0463

== ENCOUNTER 2021-11-18 09:06 | Emergency (ER) | payer OTHER, SELFPAY ==
[2021-11-18 09:30] VITALS: BP 151/99; PULSE 101; RESP 18; TEMP 36.8; O2SAT 98; BMI 38.7
--- NOTE | 2021-11-18 10:12 | HMH.EDUTC ---
[facility] Disposition Clinical Impression: Cough Disposition: Home, Self-Care Condition on Discharge: Good Instructions: DI for Cough -- Adult Additional Instructions: *Monitor Temp, Over the counter Motrin or Tylenol as directed/as needed Tylenol every 4 hours and Motrin every 6 hours (as long as your family doctor has told you that you can take it) for fever or pain. and straight to ER if unable to lower temp less than 101.0 after medication given *Warm salt water gargles may help to soothe the throat *Throat Lozenges *Warm fluids like tea with honey may help to soothe the throat *Sleep elevated *Humidifier/Vaporizer Follow up IMMEDIATELY for new or worsening symptoms or no Noticeable improvement over the next 48-72 hours. 911 for difficulty breathing or swallowing You were tested for today for COVID19 your test result should be back in the next 24-48 hours, you may check your results on the [facility] Portal if you have trouble logging on you can call support or you will get a call if your results are Positive You was given a handout with instructions for Self Quarantine and Self isolation for while you wait on test results and what to do if they are positive If you are positive the Health Dept will be contacting you also Make sure to take your Vitamins Vit. C Vit D and Zinc if you can take them Prescriptions: Benzonatate [Benzonatate 100mg cap] 100 mg PO Q8HP PRN #30 cap PRN Reason: Cough Transmission Status: Received by [facility] Fluticasone Propionate [Flonase 50mcg nasal spray 16gm] 1 spr NS DAILY #1 each Referrals: Sarita Gómez PA [Primary Care Provider] - As needed Time of Disposition: 10:37 Medical Decision Making - Amari Inquiry Pt receiving controlled substance: No Amari was queried for this patient: No Vital Signs: 11/18/21 09:30 11/18/21 10:40 Temperature 98.3 F 98.3 F Temperature Source Oral Pulse Rate 101 H Pulse Rate [Right Brachial] 101 H Respiratory Rate 18 18 Blood Pressure 151/99 H Blood Pressure [Right Arm] 151/99 H Blood Pressure Mean [Right Arm] 116 Blood Pressure Source [Right Arm] Automatic Cuff Blood Pressure Position [Right Arm] Sitting 02 Sat by Pulse Oximetry 98 Oxygen Delivery Method Room Air - Lab Data Lab Results 11/18/21 10:22: Chlamy pneumoniae PCR Not detected, Adenovirus (PCR) Not detected, B. pertussis DNA (PCR) Not detected, Coronavirus OC43 (PCR) Not detected, Coronavirus HKU1 (PCR) Not detected, Coronavirus 229E (PCR) Not detected, SARS-CoV-2 (PCR) Not detected, Coronavirus NL63 (PCR) Not detected, Human Metapneumovir PCR Not detected, Influenza A (H1) PCR Not detected, Influ A (H1N1/09) PCR Not detected, Influenza A (H3) PCR Not detected, Influenza Type A (PCR) Not detected, Influenza Type B (PCR) Not detected, M. pneumoniae (PCR) Not detected, Parainfluenza 1 (PCR) Not detected, Parainfluenza 2 (PCR) Not detected, Parainfluenza 3 (PCR) Not detected, Parainfluenza 4 (PCR) Not detected, RSV (PCR) Not detected, Entero/Rhino (PCR) Not detected Medical Decision Narrative: Patient reports that cough started around the second week of Oct after reviewing noticed patient had started Lisinopril just prior discussed with patient that sometimes lisinopril can cause dry cough and recommended that she follow up with PCP to see if her nagging dry cough may have been caused by Lisinopril and further treatment per her PCP [facility] HPI - General Stated complaint: fever/chills, sore throat, cough, h/a, congestion Time Seen by Provider: 11/18/21 10:12 Mode of Arrival: Ambulatory Source of Information: Patient Limitations: No Limitations Description of Symptoms (Recalled from Triage Doc. by RN): PATIENT C/O COUGH, FEVER AND CHEST CONGESTION. REPORTS SHE TESTED POSITIVE FOR COVID ON 10/28 AND IS NOT BETTER HEENT Symptoms (Recalled from RN notes): No Resp Symptoms (Recalled from RN notes): Yes Skin Symptoms (Recalled from RN notes): No MS Sympto
[2021-11-18 10:30] LABS: Adenovirus,PCR Not Detected (NotDetected); Bordetella Pertussis Not Detected (NotDetected); Chlamydophila Pneumoniae, PCR Not Detected (NotDetected); Coronavirus 19, PCR Not Detected (NotDetected); Coronavirus 229E Not Detected (NotDetected); Coronavirus NL63 Not Detected (NotDetected); Coronavirus OC43 Not Detected (NotDetected); Coronovirus HKU1,PCR Not Detected (NotDetected); Human Metapneumovirus Not Detected (NotDetected); Influenza A, PCR Not Detected (NotDetected); Influenza AH1, 2009 Not Detected (NotDetected); Influenza AH1, PCR Not Detected (NotDetected); Influenza AH3,PCR Not Detected (NotDetected); Influenza B, PCR Not Detected (NotDetected); Mycoplasma Pneumoniae, PCR Not Detected (NotDetected); Parainfluenza 1, PCR Not Detected (NotDetected); Parainfluenza 2, PCR Not Detected (NotDetected); Parainfluenza 3, PCR Not Detected (NotDetected); Parainfluenza 4, PCR Not Detected (NotDetected); Respiratory Syncytial Virus Not Detected (NotDetected); Rhinovirus/Enterovirus Not Detected (NotDetected)
[2021-11-18 10:40] VITALS: BP 151/99; PULSE 101; RESP 18; TEMP 36.8; O2SAT 98
== END 2021-11-18 10:43 | disposition home or self-care (01) ==
PROVIDERS: Emergency Provider Nurse Practitioner; PCP Physician Assistant
DX: R05.1 Acute cough (principal); R50.9 Fever, unspecified; I10 Essential (primary) hypertension; K21.9 Gastro-esophageal reflux disease without esophagitis; Z88.0 Allergy status to penicillin
CPT/HCPCS: 87581; 87632; 87798; 99202; C9803; G0463; U0003; U0005

== ENCOUNTER → 2021-11-24 10:06 | Outpatient (CLI) | payer OTHER, SELFPAY ==
[2021-11-24 12:01] LABS: Ferritin 24.8 ng/ml (6.24-137)
== END ==
PROVIDERS: PCP Physician Assistant; Visit Provider Nurse Practitioner Family
DX: E83.10 Disorder of iron metabolism, unspecified (principal); Z86.2 Personal history of diseases of the blood and blood-forming organs and certain disorders involving the immune mechanism
CPT/HCPCS: 36415; 82728

== ENCOUNTER → 2022-01-03 10:28 | Outpatient (POV) | payer OTHER, SELFPAY ==
[2022-01-03 11:00] VITALS: BP 133/80; PULSE 90; RESP 20; TEMP 36.9; O2SAT 99; BMI 39.9
--- NOTE | 2022-01-03 11:07 | P.CONS_ITS ---
[facility] Pain Management SOAP Note Subjective:: Patient is a very pleasant 41-year-old white female who presents today for follow-up and medication refills. Being treated for degenerative disease of lumbar spine with lumbar facet arthropathy and spondylosis. She previously has undergone lumbar RFA approximately 4 months ago and states that she noticed significant relief approximately 70 to 80% for her almost 4 months as she had longer term pain relief. She states that her pain symptoms have returned including low back pain radiating down her legs to her toes. She has not undergone a lumbar epidural steroid injection before. She is also taking gabapentin and tramadol that is prescribed in our clinic which she states she has been taking for a few years now but is unsure of either is helping. Furthermore she states that she was recently evaluated by sleep specialist who recommended weaning of both of these medications before she is started on the longer acting version of gabapentin and trazodone for better sleep quality. Objective:: General: Alert and oriented x3, no acute distress, pleasant and cooperative Lungs: Resps E/U, symmetric chest expansion Eyes: PERRL Musculoskeletal: limited flexion and extension of the lumbar spine secondary to pain. Deep tendon reflexes were normal in bilateral lower extremities. Motor exam was grossly intact in the bilateral lower extremities, antalgic gait noted. 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 We will also wean her gabapentin and tramadol and I gave the patient detailed instructions on gradual weaning to prevent any withdrawal symptoms. For now we will refill her gabapentin 300 mg 3 times daily #90 for 1 month supply comedonal 50 mg 1 tablet p.o. twice daily #60 for 1 month supply in order for her to have enough medication as she weans off. [facility] History Medical History: Reports:: Asthma, Gastroesophageal Reflux Disease(GERD), Hepatitis, Hypertension, Kidney Stones, Urinary Tract Infection Denies:: Cancer, Diabetes Mellitus Type 1, Diabetes Mellitus Type 2, Internal Pacemaker, MRSA, Seizures *Have you ever received a pneumonia vaccine?: No *Have you received a flu vaccine this season?: No Other Medical History: Reports: Arthritis, Other. Denies: Blood Transfusion Reaction Laterality Cases: Bilateral: Myringotomy (Ear Tubes), Tonsillectomy Other Surgeries: Yes: Appendectomy, Bariatric Surgery, Cholecystectomy, Colonoscopy, EGD, Hysterectomy-Total, Hysterectomy-Partial, Tubal Ligation. No: Pacemaker Amputation: No Fractures: Yes (Tibia) - *Social History Smoking Status: Never smoker Alcohol Intake: current Alcohol Intake Frequency:: holidays/special occasions only Substance Use Type: denies use *Occupational Status:: other Housing: house Household Members: significant other *Travel in the last 8 weeks: None Family Hx:: Diabetes, Hypertension, Hyperlipidemia, Kidney Disease, Asthma, Other, Thyroid Disorder
== END ==
PROVIDERS: Visit Provider Anesthesiology Pain Medicine
DX: M51.16 Intervertebral disc disorders with radiculopathy, lumbar region (principal); M47.896 Other spondylosis, lumbar region; M54.06 Panniculitis affecting regions of neck and back, lumbar region
CPT/HCPCS: 99212; G0463

== ENCOUNTER → 2022-01-05 13:05 | Outpatient (CLI) | payer OTHER, SELFPAY ==
[2022-01-16 21:07] LABS: Dopamine, Ur, 24hr 476 ug/24 hr (0-510); Dopamine, Urine 307 ug/L (Undefined); Epinephrine, U, 24hr 5 ug/24 hr (0-20); Epinephrine, Urine 3 ug/L (Undefined); Norepinephrine, Ur 70 ug/L (Undefined); Norepinephrine,U,24h 109 ug/24 hr (0-135); VMA, Urine 3.5 mg/L (Undefined); VMA, Urine, 24hr 5.4 mg/24 hr (0.0-7.5)
== END ==
PROVIDERS: Visit Provider Physician Assistant
DX: I10 Essential (primary) hypertension (principal); M79.2 Neuralgia and neuritis, unspecified; E66.01 Morbid (severe) obesity due to excess calories; Z68.41 Body mass index [BMI] 40.0-44.9, adult
CPT/HCPCS: 82384; 84585

== ENCOUNTER 2022-01-14 15:22 | Day surgery (SDC) | payer OTHER, SELFPAY ==
[2022-01-14 15:24] VITALS: BP 134/78; BP 136/79; PULSE 90; PULSE 97; RESP 18; RESP 20; O2SAT 99
[2022-01-14 15:37] VITALS: BP 145/78; PULSE 97; RESP 18; TEMP 36.7; O2SAT 98; BMI 38.2
--- NOTE | 2022-01-14 15:44 | HMH.PMPROC ---
- Procedure Date: 01/14/22 Time: 15:44 Anesthesiologist:: Suraj Jimenez MD Complications:: None Pre-procedure Diagnosis:: Degenerative disc disease of lumbar spine with lumbar radiculopathy symptoms Post-procedure Diagnosis:: Same Indications for Procedure:: Patient is a pleasant 41-year-old white female who we are treating for low back pain with lumbar radiculopathy symptoms. She has increasing pain in her back radiating to hips and down both legs. Dr. Luque has taken her off her gabapentin and tramadol as it may be contributing to her insomnia. We will do a lumbar epidural steroid injection today to help her with her pain symptoms. Procedure Details:: Informed consent was obtained and the risk and benefits of the procedure was explained to the patient. The patient was taken to the procedure room. The patient was placed prone on the procedure table. The patient was prepped and draped in sterile fashion. C-arm fluoroscopy was used to view the lumbar spine. Skin and subcutaneous tissues were anesthetized using lidocaine. I placed an 18-gauge epidural needle and advanced into the L4-L5 interspace using fluoroscopic guidance and [id number] to air. After confirmation of needle placement in the epidural space with dye I injected 2 mL of lidocaine 1.5% with Depo-Medrol 80 mg. Patient tolerated the procedure well with no complications. Plan and Disposition:: We will follow-up with her in 2 weeks. Will reevaluate her symptoms at that time.
[2022-01-14 15:47] VITALS: BP 129/80; PULSE 94; RESP 20; O2SAT 99
== END 2022-01-14 15:48 | disposition home or self-care (01) ==
LOC: SC.PAINP 15:23
PROVIDERS: PCP Physician Assistant; Visit Provider Anesthesiology
DX: M51.16 Intervertebral disc disorders with radiculopathy, lumbar region (principal); I10 Essential (primary) hypertension; K21.9 Gastro-esophageal reflux disease without esophagitis; M19.90 Unspecified osteoarthritis, unspecified site; Z86.16 Personal history of COVID-19; Z88.0 Allergy status to penicillin; Z88.1 Allergy status to other antibiotic agents
CPT/HCPCS: 62323; J1040; Q9966

== ENCOUNTER → 2022-02-17 13:03 | Outpatient (POV) | payer OTHER, SELFPAY ==
[2022-02-17 13:51] VITALS: BP 122/73; PULSE 102; RESP 18; TEMP 36.6; O2SAT 98; BMI 38.2
--- NOTE | 2022-02-17 14:40 | HMH.PAINSOAP ---
[facility] Pain Management SOAP Note Subjective:: Patient is a pleasant 41-year-old female who presents today for a follow-up after a lumbar epidural steroid injection. Patient is currently being treated for degenerative disease of lumbar spine with lumbar radiculopathy symptoms, facet arthropathy, lumbar spondylosis. After the procedure, patient had very minimal relief. States that she continues to have pain around the right side of her lumbar spine. She did have an RFA in September 2021 that also helped minimally. We have tried several conservative therapies such as oral medication, physical therapy, at home exercises with the patient. We also thought that the patient was a spinal cord stimulator candidate. She was denied by insurance for this. For pain, she was taking gabapentin and tramadol but she was weaned out of these medications because her neurologist says that these might be causing her insomnia. She rates her pain today as 8 out of 10. Patient is also complaining of pain around her mid back. Denies any recent falls or traumas. States that she has been having trouble with thoracic flexion and extension. Review of Systems: General: No recent weight changes, no fever, no sleep disturbances Respiratory: No cough, no shortness of air, no recurring pulmonary infections Cardiovascular/peripheral vascular: No chest pain, no palpitations, no edema, no shortness of breath Gastrointestinal: No new onset incontinence, normal bowel movements reported Genitourinary: No new onset incontinence Musculoskeletal: Low back pain Psychiatric: [Normal mood/affect] Neurological: [Denies weakness in extremities], [denies balance issues] Objective:: Physical Exam: General: Alert and oriented x3, no acute distress, pleasant and cooperative, [on room air] Lungs: Respirations even and unlabored, symmetrical chest expansion Eyes: PERRL Musculoskeletal: Flexion and extension of lumbar [spine] somewhat guarded secondary to pain, [antalgic gait noted]; patient is tender to palpation around her upper thoracic spine. Neurological: Speech clear, no gross sensory deficit Assessment:: Degenerative disc disease of lumbar spine with lumbar radiculopathy symptoms Mid back pain Plan:: Patient continues to have low back pain. We have tried epidural steroid injection, medial branch block, and RFA in the last few months with minimal relief of symptoms. Patient states that she had a bilateral knee replacement last year and has been more active since then. She feels like her low back pain has gotten worse since she became more active. Her last MRI was in March 26, 2021. Since the patient has intractable low back pain, we will order an updated MRI of her lumbar spine. She is also complaining of pain around her mid back that is tender to palpation. We will also order a thoracic MRI. We might consider referring the patient to neurosurgery after the imaging for further evaluation and treatment. In the interim, I will start the patient on prednisone 20 mg twice a day for 5 days, diclofenac 75 mg twice a day for 14 days. Patient will continue taking her tizanidine 4 mg 3 times a day. Patient has been instructed to contact the clinic with any concerns before the next appointment. Dr. Jimenez has reviewed this note and agrees with this plan of care. This note was dictated using voice recognition software and make contain errors or omissions. [facility] History Medical History: Reports:: Asthma, Cancer, Gastroesophageal Reflux Disease(GERD), Hepatitis, Hypertension, Kidney Stones, MRSA, Urinary Tract Infection Denies:: Diabetes Mellitus Type 1, Diabetes Mellitus Type 2, Internal Pacemaker, Seizures *Have you ever received a pneumonia vaccine?: No *Have you received a flu vaccine this season?: Yes Other Medical History: Reports: Arthritis, Other. Denies: Blood Transfusion Reaction Laterality Cases: Bilateral: Myringotomy (Ear Tubes), Tonsillectomy Other Surgeries: Yes: Appendec
== END ==
PROVIDERS: Visit Provider Student in an Organized Health Care Education/Training Program
DX: M51.16 Intervertebral disc disorders with radiculopathy, lumbar region (principal); M54.6 Pain in thoracic spine
CPT/HCPCS: 99212; G0463

== ENCOUNTER → 2022-02-17 14:02 | Outpatient (CLI) | payer OTHER, SELFPAY ==
[2022-02-17 17:46] LABS: Ferritin 37.6 ng/ml (6.24-137)
== END ==
PROVIDERS: Visit Provider Nurse Practitioner Family
DX: E83.10 Disorder of iron metabolism, unspecified (principal); G25.81 Restless legs syndrome
CPT/HCPCS: 36415; 82728

== ENCOUNTER → 2022-02-25 13:45 | Outpatient (CLI) | payer OTHER, SELFPAY ==
--- NOTE | 2022-02-25 13:48 | MR_ITS ---
FINAL REPORT CLINICAL HISTORY: MID BACK PAIN. CHRONIC LOW BACK PAIN. NKI. PT STATES INCREASED PAIN. FINDINGS: Multiplanar MR imaging of the thoracic spine was performed without contrast. On the sagittal T2-weighted images, no significant disc degeneration is identified. There is no evidence of fracture. The vertebral alignment is normal. There is presumed focal fat in the T11 vertebral body. The thoracic spinal cord has an unremarkable appearance without evidence of mass, edema or syrinx. There is a 16 mm cystic mass in the left paraspinous region at T4. There is no evidence of canal stenosis or cord compression. On the axial images, no focal disc protrusion is identified. There is no evidence of significant canal stenosis. No paraspinous soft tissue abnormality is seen. IMPRESSION: 16 mm cystic mass in the left paraspinous region at T4. Cyst versus cystic neoplasm. Consider follow-up MRI in 6-12 months. Reviewed, Interpreted and Dictated by Maurice Mcdaniel III, MD Transcribed by Nando Marcus Authenticated by Maurice Mcdaniel III, MD on 02/25/2022 04:36:01 PM [facility]
--- NOTE | 2022-02-25 13:48 | MR_ITS ---
FINAL REPORT CLINICAL HISTORY: CHRONIC LOW BACK PAIN. NKI. PT STATES INCREASED PAIN. COMPARISON: March 26, 2021 FINDINGS: Multiplanar MR imaging of the lumbar spine was performed without contrast. On the sagittal T2-weighted images, disc degeneration is seen throughout. The vertebral alignment is normal. There is no evidence of fracture. The conus has an unremarkable appearance. There is no significant central canal stenosis. L1-2: There is an annular bulge with a left paracentral disc protrusion. There is mild left neural foraminal narrowing. L2-3: There is an annular bulge, facet arthropathy and vertebral osteophytes. There is mild bilateral neural foraminal narrowing. L3-4: There is an annular bulge, facet arthropathy and vertebral osteophytes. There is mild right neural foraminal narrowing. L4-5: There is an annular bulge and facet arthropathy. There is mild bilateral neural foraminal narrowing. L5-S1: There is an annular bulge with mild right neural foraminal narrowing. IMPRESSION: Multilevel degenerative disc disease and neural foraminal narrowing. Left paracentral disc protrusion at L1-L2 without significant central canal stenosis. Reviewed, Interpreted and Dictated by Maurice Mcdaniel III, MD Transcribed by Nando Marcus Authenticated by Maurice Mcdaniel III, MD on 02/25/2022 04:05:08 PM [facility]
== END ==
PROVIDERS: PCP Physician Assistant; Visit Provider Student in an Organized Health Care Education/Training Program
DX: M54.6 Pain in thoracic spine (principal); M54.50 Low back pain, unspecified
CPT/HCPCS: 72146; 72148; 76376

== ENCOUNTER → 2022-03-02 11:15 | Outpatient (CLI) | payer OTHER, SELFPAY ==
[2022-03-02 11:22] LABS: Microscopic, Urine URINE MICROSCOPIC (MICROSCOPIC)
[2022-03-02 12:24] LABS: Basophils % 0.4 % (0.1-2.0); Eosinophils # 0.2 K/mm3 (0.0-0.4); Eosinophils % 2.1 % (0.1-12.0); Hematocrit 36.7 % (37.0-47.0); Lymphocytes # 2.4 K/mm3 (0.7-4.5); Lymphocytes % 26.9 % (10-50); Mean Corpuscular HGB Conc 32.8 g/dL (31.8-35.4); Mean Corpuscular Hemoglobin 28.6 pg (27.0-31.2); Mean Corpuscular Volume 87.3 fl (81-99); Mean Platelet Volume 8.2 fl (7.4-10.4); Monocytes # 0.5 K/mm3 (0.1-1.0); Monocytes % 5.3 % (1.7-9.3); Neutrophils # 5.8 K/mm3 (1.8-7.8); Neutrophils % 65.2 % (37.0-80.0); Platelet Count 389 K/mm3 (142-424); Red Blood Count 4.21 M/mm3 (4.20-5.40); Red Cell Distribution Width 13.2 % (11.5-17.5); White Blood Count 8.8 K/mm3 (4.8-10.8)
[2022-03-02 12:46] LABS: Albumin Level 4.4 g/dl (3.5-5.0); Anion Gap 11.7 mEq/L (5-15); Blood Urea Nitrogen 16 mg/dl (7-17); Calcium 9.4 mg/dl (8.4-10.2); Carbon Dioxide 28 mmol/L (22.0-30.0); Chloride 103 mmol/L (98-107); Estimated Glomerular Filt Rate 93 ml/min (>60); GFR (African American) 113 ML/MIN (>60); Glucose 88 mg/dl (74-100); Phosphorous 3.9 mg/dl (2.5-4.5); Potassium 3.7 mmoL/L (3.5-5.1); Sodium 139 mmol/L (136-145)
[2022-03-02 12:58] LABS: Intact Parathyroid Hormone 54.1 pg/mL (7.5-53.5)
[2022-03-02 13:04] LABS: 25-OH Vitamin D, Total 41.7 ng/mL (30-100)
[2022-03-02 14:59] LABS: Appearance,Urine CLEAR (Clear); Bilirubin,Urine Negative (Negative); Blood, Urine Negative (Negative); Color,Urine YELLOW (Yellow); Glucose,Urine (UA) Negative (Negative); Ketones,Urine Negative (Negative); Leukocyte Esterase,Urine TRACE (Negative); Nitrate,Urine Negative (Negative); PH,Urine 5.5 (5.0-8.5); Protein,Urine Negative (Negative); Specific Gravity, Urine 1.025 (1.005-1.030); Urobilinogen,Urine 0.2 EU/dl (0.2)
[2022-03-02 15:26] LABS: Creatinine,Urine Random 96 mg/dL (Not Estab.)
[2022-03-02 15:56] LABS: Bacteria,Urine Trace /lpf; RBC,Urine Occasional #/hpf (0-3); WBC,Urine Occasional #/hpf (0-3)
[2022-03-09 15:12] LABS: Renin Activity, Plasma 9.359 ng/mL/hr (0.167-5.380)
== END ==
PROVIDERS: Visit Provider Internal Medicine Nephrology
DX: I10 Essential (primary) hypertension (principal); E55.9 Vitamin D deficiency, unspecified
CPT/HCPCS: 36415; 80069; 81001; 82088; 82306; 82570; 83970; 84155; 84244; 85025

== ENCOUNTER → 2022-03-03 14:45 | Outpatient (POV) | payer OTHER, SELFPAY ==
[2022-03-03 15:02] VITALS: BP 134/72; PULSE 88; RESP 18; TEMP 37.3; O2SAT 97; BMI 38.2
--- NOTE | 2022-03-03 17:05 | HMH.PAINSOAP ---
[facility] Pain Management SOAP Note Subjective:: Patient is a pleasant 41-year-old female who presents today for follow-up. Patient is currently being treated for degenerative disc disease of lumbar spine with lumbar radiculopathy symptoms, facet arthropathy, lumbar spondylosis. We have tried several interventions with the patient's including epidural steroid injections, medial branch block, and RFA that provided minimal relief of symptoms. Patient continues to have intractable low back pain. We also have tried other conservative therapies such as oral medication, physical therapy and home exercises with the patient. We have tried to submit the patient for a spinal cord stimulator however she was denied by insurance for this. She continues to take tramadol 50 mg 3 times a day that is prescribed by this clinic. She is also prescribed Horizant 600 mg daily by Sarita Gómez. When I last saw this patient, she was also complaining of pain around her mid back. She was tender to palpation around this area. I did order an updated lumbar MRI and I also ordered a thoracic MRI. For this mid back pain, I started the patient on a course of oral steroid, diclofenac 75 mg twice a day for 14 days and tizanidine 4 mg 3 times a day. She did not get any relief from this multimodal approach for acute pain. [facility] #[id number] with an active morphine equivalent of 15. Review of Systems: General: No recent weight changes, no fever, no sleep disturbances Respiratory: No cough, no shortness of air, no recurring pulmonary infections Cardiovascular/peripheral vascular: No chest pain, no palpitations, no edema, no shortness of breath Gastrointestinal: No new onset incontinence, normal bowel movements reported Genitourinary: No new onset incontinence Musculoskeletal: Mid back pain, low back pain Psychiatric: [Normal mood/affect] Neurological: [Denies weakness in extremities], [denies balance issues] Objective:: Physical Exam: General: Alert and oriented x3, no acute distress, pleasant and cooperative Lungs: Respirations even and unlabored, symmetrical chest expansion Eyes: PERRL Musculoskeletal: Flexion and extension of lumbar [spine] somewhat guarded secondary to pain, [antalgic gait noted]; patient is tender to palpation around the mid back. There is no noticeable lesion or erythema. Neurological: Speech clear, no gross sensory deficit Assessment:: Degenerative disc disease of the lumbar spine with lumbar radiculopathy symptoms Myofascial pain Plan:: IMAGING THORACIC MRI Ordering Physician: Dhaval Barksdale Date of Service: 02/25/22 Procedure(s): MR thoracic spine wo con Accession Number(s): [id number] cc: Maurice Mcdaniel MD; Sarita Gómez~ FINAL REPORT CLINICAL HISTORY: MID BACK PAIN. CHRONIC LOW BACK PAIN. NKI. PT STATES INCREASED PAIN. FINDINGS: Multiplanar MR imaging of the thoracic spine was performed without contrast. On the sagittal T2-weighted images, no significant disc degeneration is identified. There is no evidence of fracture. The vertebral alignment is normal. There is presumed focal fat in the T11 vertebral body. The thoracic spinal cord has an unremarkable appearance without evidence of mass, edema or syrinx. There is a 16 mm cystic mass in the left paraspinous region at T4. There is no evidence of canal stenosis or cord compression. On the axial images, no focal disc protrusion is identified. There is no evidence of significant canal stenosis. No paraspinous soft tissue abnormality is seen. IMPRESSION: 16 mm cystic mass in the left paraspinous region at T4. Cyst versus cystic neoplasm. Consider follow-up MRI in 6-12 months. Reviewed, Interpreted and Dictated by Maurice Mcdaniel III, MD Transcribed by Nando Marcus Authenticated by Maurice Mcdaniel III, MD on 02/25/2022 04:36:01 PM [facility] LUMBAR MRI Ordering Physician: Dhaval Barksdale Date of Service: 02/25/22 Procedure(s): MR lumbar spine w
== END ==
PROVIDERS: Visit Provider Student in an Organized Health Care Education/Training Program
DX: M51.16 Intervertebral disc disorders with radiculopathy, lumbar region (principal); M79.18 Myalgia, other site
CPT/HCPCS: 99212; G0463

== ENCOUNTER → 2022-03-10 14:54 | Outpatient (POV) | payer OTHER, SELFPAY | PROVIDERS: Visit Provider Internal Medicine Nephrology | DX: Z00.00 Encounter for general adult medical examination without abnormal findings (principal) ==

== ENCOUNTER → 2022-04-19 07:01 | Outpatient (CLI) | payer OTHER, SELFPAY ==
[2022-04-18 17:47] LABS: Basophils % 0.4 % (0.1-2.0); Eosinophils # 0.3 K/mm3 (0.0-0.4); Eosinophils % 2.8 % (0.1-12.0); Hematocrit 39.5 % (37.0-47.0); Hemoglobin 13.6 g/dL (12.2-16.2); Lymphocytes # 2.4 K/mm3 (0.7-4.5); Lymphocytes % 26.8 % (10-50); Mean Corpuscular HGB Conc 34.5 g/dL (31.8-35.4); Mean Corpuscular Hemoglobin 29.4 pg (27.0-31.2); Mean Corpuscular Volume 85.2 fl (81-99); Mean Platelet Volume 8.6 fl (7.4-10.4); Monocytes # 0.5 K/mm3 (0.1-1.0); Monocytes % 5.5 % (1.7-9.3); Neutrophils # 5.8 K/mm3 (1.8-7.8); Neutrophils % 64.5 % (37.0-80.0); Platelet Count 395 K/mm3 (142-424); Red Blood Count 4.64 M/mm3 (4.20-5.40); Red Cell Distribution Width 12.8 % (11.5-17.5)
[2022-04-18 18:09] LABS: Alanine Aminotransferase 19 U/L (12-78); Albumin Level 4.3 g/dl (3.5-5.0); Albumin/Globulin Ratio 1.6 (1.1-1.8); Alkaline Phosphatase 81 U/L (38-126); Anion Gap 11.9 mEq/L (5-15); Aspartate Amino Transferase 26 U/L (14-36); Bilirubin,Total 0.3 mg/dl (0.2-1.3); Blood Urea Nitrogen 14 mg/dl (7-17); Calcium 9.5 mg/dl (8.4-10.2); Carbon Dioxide 28 mmol/L (22.0-30.0); Chloride 104 mmol/L (98-107); Estimated Glomerular Filt Rate 79 ml/min (>60); GFR (African American) 96 ML/MIN (>60); Globulin 2.7 g/dL (1.3-3.2); Glucose 121 mg/dl (74-100); Potassium 3.9 mmoL/L (3.5-5.1); Sodium 140 mmol/L (136-145)
[2022-04-18 18:37] LABS: Erythrocyte Sedimentation Rate 16 mm/hr (0-20)
[2022-04-18 20:38] LABS: Thyroid Stimulating Hormone 2.51 uIU/mL (0.465-4.68)
[2022-04-19 10:31] LABS: Hemoglobin A1C 4.9 % (4.0-6.0)
[2022-04-20 12:11] LABS: Anti-Centromere B Antibodies <0.2 AI (0.0-0.9); Anti-DNA (DS) Ab Qn 1 IU/mL (0-9); Anti-Jo-1 <0.2 AI (0.0-0.9); Anti-Smith Antibody <0.2 AI (0.0-0.9); Antichromatin Antibodies <0.2 AI (0.0-0.9); Antiscleroderma-70 Antibodies <0.2 AI (0.0-0.9); RA Latex Turbid. 10.2 IU/mL (<14.0); RNP Antibodies <0.2 AI (0.0-0.9); Sjogren's Anti-SS-A <0.2 AI (0.0-0.9); Sjogren's Anti-SS-B <0.2 AI (0.0-0.9)
[2022-04-22 03:40] LABS: Anti-Cyclic Citrullinated Pept <1 units (0-19)
== END ==
PROVIDERS: PCP Physician Assistant; Visit Provider Physician Assistant
DX: R51.9 Headache, unspecified (principal); M25.50 Pain in unspecified joint; R73.09 Other abnormal glucose
CPT/HCPCS: 80053; 83036; 84443; 85025; 85651; 86200; 86225; 86235; 86431

== ENCOUNTER → 2022-05-23 09:28 | Outpatient (CLI) | payer OTHER, SELFPAY ==
--- NOTE | 2022-05-23 09:28 | MR_ITS ---
FINAL REPORT CLINICAL HISTORY: thoracic tumor, headache, vision loss right eye. RIGHT SIDED HEAD PRESSURE AND HEADACHES FOR 2 MONTHS. RIGHT ARM PAIN, NUMBNESS, AND TINGLING. WEAKNESS IN RIGHT ARM. NO INJURY OR TRAUMA. FINDINGS: Multiplanar MR imaging of the cervical spine was performed without contrast. On the sagittal T2-weighted images, disc degeneration is seen throughout. There is mild kyphosis centered on C5. There is no evidence of fracture. The vertebral alignment is normal. The cervical spinal cord has an unremarkable appearance without evidence of mass, edema or syrinx. No significant canal stenosis is identified. The cervicomedullary junction is normal. C2-3: There is no significant canal stenosis or neural foraminal narrowing. C3-4: Small right foraminal disc protrusion is present. There is no significant canal stenosis or neural foraminal narrowing. C4-5: An annular disc bulge is present. There is no significant canal stenosis or neural foraminal narrowing. C5-6: An annular disc bulge is present. There is left foraminal disc protrusion resulting in moderate left neural foraminal narrowing and left C6 nerve root impingement. C6-7: An annular disc bulge is present. There is a left paracentral disc protrusion with possible left C7 nerve root impingement C7-T1: There is no significant canal stenosis or neural foraminal narrowing. IMPRESSION: Left foraminal disc protrusion at C5-6 results in left C6 nerve impingement. Left paracentral disc protrusion at C6-7 with possible left C7 nerve root impingement. Multilevel degenerative disc disease as detailed above. Reviewed, Interpreted and Dictated by Maurice Mcdaniel III, MD Transcribed by Ro Ochoa Authenticated and . [facility]
--- NOTE | 2022-05-23 09:28 | MR_ITS ---
FINAL REPORT CLINICAL HISTORY: headache, vision loss. RIGHT SIDED HEAD PRESSURE AND HEADACHES FOR 2 MONTHS. RIGHT ARM PAIN, NUMBNESS, AND TINGLING. WEAKNESS IN RIGHT ARM. NO INJURY OR TRAUMA. FINDINGS: Multiplanar MR imaging of the brain was performed without contrast. There is no evidence of intracranial hemorrhage or mass. The ventricular size is normal. There is no evidence of shift of the midline structures. No abnormal extra-axial fluid collection is identified. The posterior fossa and brainstem have an unremarkable appearance. No area of abnormal restricted diffusion is identified. Normal major vessel vascular flow voids are seen. There is mild mucosal thickening in the right maxillary sinus. IMPRESSION: Unremarkable brain with no acute intracranial abnormality. Mild right maxillary sinusitis. Reviewed, Interpreted and Dictated by Maurice Mcdaniel III, MD Transcribed by Ro Ochoa Authenticated and [facility]
== END ==
PROVIDERS: PCP Physician Assistant; Visit Provider Physician Assistant
DX: R51.9 Headache, unspecified (principal); D49.2 Neoplasm of unspecified behavior of bone, soft tissue, and skin; M54.2 Cervicalgia
CPT/HCPCS: 70551; 72141; 76376

== ENCOUNTER → 2022-06-02 11:21 | Outpatient (POV) | payer OTHER, SELFPAY ==
[2022-06-02 11:51] VITALS: BP 155/97; PULSE 95; RESP 18; TEMP 36.8; O2SAT 100; BMI 36.6
--- NOTE | 2022-06-02 13:08 | HMH.PAINSOAP ---
[facility] Pain Management SOAP Note Subjective:: Patient is a pleasant 42-year-old female who presents today for follow-up. Patient is currently being treated for degenerative disc disease of the lumbar spine with cervical radiculopathy symptoms, facet arthropathy, lumbar spondylosis, chronic neck and mid back pain. We have been managing this patient with injective therapy including epidural steroid injections, medial branch blocks, and RFA that all provided minimal relief. Patient continues to have intractable neck, mid back, low back pain. We also have tried several conservative therapies such as oral medication, physical therapy and home exercises. We have discussed with the patient in the past that she is a good candidate for the spinal cord stimulator due to her intractable back pain, however, this was denied by insurance. She is currently prescribed Horizant 600 mg by her primary care provider. She was prescribed tramadol 50 mg 3 times a day but this was discontinued by her sleep doctor. She was told that this is worsening her insomnia. We are also managing this patient with a tizanidine 4 mg 3 times a day that is helping the patient with sleep. When I last saw this patient, we had ordered a thoracic MRI. Her thoracic MRI showed a 16mm cystic mass in the left paraspinous region at T4. They were unsure if this mass is a cyst or a neoplasm. I had referred this patient to neurosurgery for further evaluation at . After seeing with , she was told that they will continue to observe this mass and that she needs a repeat MRI in September. She has a follow-up with neurosurgery on October 14, 2022. Today, patient's main complaint is her neck and midback pain. She says that her neck pain radiates to bilateral upper extremities. This is associated with numbness and paresthesia. She had a recent cervical MRI that was ordered by her PCP. From her cervical MRI, she does have left foraminal disc protrusion at C5-C6 resulting in left C6 nerve impingement. There is also a left paracentral disc protrusion at C6-C7 with a possible left C7 root impingement. Sarita Gómez has tried steroid injection and Toradol shots at her office which only provided 2 days of 100% relief. She has been referred to physical therapy for her neck pain. She rates her pain today as 7 out of 10. Amari [id number] with an active morphine equivalent of 0. Review of Systems: General: No recent weight changes, no fever, no sleep disturbances Respiratory: No cough, no shortness of air, no recurring pulmonary infections Cardiovascular/peripheral vascular: No chest pain, no palpitations, no edema, no shortness of breath Gastrointestinal: No new onset incontinence, normal bowel movements reported Genitourinary: No new onset incontinence Musculoskeletal: Neck pain, mid back pain, low back pain Psychiatric: [Normal mood/affect] Neurological: [Denies weakness in extremities], [denies balance issues] Objective:: Physical Exam: General: Alert and oriented x3, no acute distress, pleasant and cooperative Lungs: Respirations even and unlabored, symmetrical chest expansion Eyes: PERRL Musculoskeletal: Flexion and extension of cervical, thoracic, lumbar [spine] somewhat guarded secondary to pain, [antalgic gait noted]; her mid back on the level of T4 is tender to palpation Neurological: Speech clear, no gross sensory deficit Assessment:: Degenerative disc disease of the cervical and lumbar spine with cervical and lumbar radiculopathy symptoms, lumbar spondylosis, lumbar facet arthropathy, mid back pain Plan:: We will schedule this patient for a cervical epidural steroid injection at C6-C7. Patient is not on any blood thinners. We will continue the patient's tizanidine 4 mg 3 times a day and provide the patient with 3 months worth of refill. I discussed with the patient that she is a good candidate for the intrathecal pain pump therapy since she has been having significant neck, mid back, low back
== END ==
PROVIDERS: PCP Physician Assistant; Visit Provider Student in an Organized Health Care Education/Training Program
DX: M51.16 Intervertebral disc disorders with radiculopathy, lumbar region (principal); M50.10 Cervical disc disorder with radiculopathy, unspecified cervical region; M47.26 Other spondylosis with radiculopathy, lumbar region
CPT/HCPCS: 99212; G0463

== ENCOUNTER 2022-06-17 09:04 | Day surgery (SDC) | payer OTHER, SELFPAY ==
[2022-06-17 09:32] VITALS: BP 150/98; PULSE 84; TEMP 36.7; O2SAT 99; BMI 36.2
[2022-06-17 09:56] VITALS: BP 148/98; PULSE 81; RESP 18; O2SAT 100
--- NOTE | 2022-06-17 11:01 | HMH.PMPROC ---
- Procedure Date: 06/17/22 Time: 11:01 Anesthesiologist:: Denis Hare CRNA Complications:: None Pre-procedure Diagnosis:: Degenerative disc disease cervical spine multilevels. Cervical radiculopathy symptoms Post-procedure Diagnosis:: Same Indications for Procedure:: This patient is a pleasant 42-year-old female that comes to our clinic today for a cervical epidural steroid injection. Patient complains of cervical neck pain as well as headache pain and bilateral arm radicular symptoms at times. She rates her pain 7/10. Procedure Details:: Procedure:Cervical epidural steroid injection Informed consent was obtained and the risks and benefits of the procedure were explained to the patient. The patient was taken to the procedure room and noninvasive monitors placed, including noninvasive blood pressure cuff and pulse oximeter. The neck was prepped using Betadine as a cleansing solution. The C6-C7 interspace was palpated. The skin and subcutaneous tissues were anesthetized using lidocaine 1.5% and a 25-gauge needle. After this an 18-gauge Touhy epidural needle was placed into the C6-C7 interspace and advanced using loss of resistance to air until the epidural space was encountered. After confirmation of needle placement in the epidural space, a solution containing lidocaine 1.5%, 4 mL and Depo-Medrol 80 mg was incrementally injected into the cervical epidural space.~ The patient tolerated the procedure well with no complications. The patient was observed in the Pain Clinic and then discharged home neurologically intact. Plan and Disposition:: Patient was discharged without incident.
== END 2022-06-17 09:57 | disposition home or self-care (01) ==
LOC: SC.PAINP 09:05
PROVIDERS: PCP Physician Assistant; Visit Provider Nurse Anesthetist, Certified Registered
DX: M50.123 Cervical disc disorder at C6-C7 level with radiculopathy (principal); M51.16 Intervertebral disc disorders with radiculopathy, lumbar region
CPT/HCPCS: 62320; J1040

== ENCOUNTER → 2022-06-28 09:32 | Outpatient (POV) | payer OTHER, SELFPAY ==
[2022-06-28 09:48] VITALS: BP 143/84; PULSE 95; RESP 18; TEMP 36.8; O2SAT 100; BMI 35.7
--- NOTE | 2022-06-28 10:28 | P.CONS_ITS ---
[facility] Pain Management SOAP Note Subjective:: Patient is a pleasant 42-year-old white female who we have been treating for neck pain with cervical radicular symptoms as well as mid back pain and low back pain. Her worst pain is in the lumbar area. She has seen [facility] in the past for a 16mm cystic mass in the left paraspinous region at T4. She was not very satisfied with [facility]. She does have increasing neck pain with a left C7 nerve root impingement. We will send her over to either Dr. Espino or Dr. Valdivia for evaluation of her low back pain and neck pain. Also we will order a new lumbar MRI as its been over a year since her imaging on her lumbar spine. Since she has exhausted conservative treatments including RF ablation medial branch blocks epidural steroid injections and she is currently doing physical therapy. Objective:: Alert and oriented x3 no acute distress. Patient does not antalgic gait. Limited range of motion. Increasing pain in the midline of the cervical spine thoracic spine and lumbar spine. Motor strength of the lower extremities is 5/5. There is no gross sensory deficit. Pain score is an 8 out of 10. Assessment:: Degenerative disc disease of the cervical spine and lumbar spine with radiculopathy symptoms. Degenerative disc disease of the thoracic spine with cystic mass in the left paraspinous region at T4. Plan:: We will order a new lumbar MRI and also send her to neurosurgical evaluation either by Dr. Espino or Dr. Valdivia. We will follow-up with her after her MRI and neurosurgical evaluation. [facility] History Medical History: Reports:: Asthma, Cancer, Gastroesophageal Reflux Disease(GERD), Hepatitis, Hypertension, Kidney Stones, MRSA, Urinary Tract Infection Denies:: Diabetes Mellitus Type 1, Diabetes Mellitus Type 2, Internal Pacemaker, Seizures *Have you ever received a pneumonia vaccine?: No *Have you received a flu vaccine this season?: Yes Other Medical History: Reports: Arthritis, Other. Denies: Blood Transfusion Reaction Laterality Cases: Bilateral: Myringotomy (Ear Tubes), Tonsillectomy Other Surgeries: Yes: Appendectomy, Bariatric Surgery, Cholecystectomy, Colonoscopy, EGD, Hysterectomy-Total, Hysterectomy-Partial, Tubal Ligation. No: Pacemaker Amputation: No Fractures: Yes (Tibia) - *Social History Smoking Status: Never smoker Alcohol Intake: current Alcohol Intake Frequency:: holidays/special occasions only Substance Use Type: denies use *Occupational Status:: unemployed Housing: house Household Members: significant other, children *Travel in the last 8 weeks: None Family Hx:: Diabetes, Hypertension, Other
== END ==
PROVIDERS: PCP Physician Assistant; Visit Provider Anesthesiology
DX: M50.10 Cervical disc disorder with radiculopathy, unspecified cervical region (principal); M51.34 Other intervertebral disc degeneration, thoracic region
CPT/HCPCS: 99212; G0463

== ENCOUNTER 2022-07-06 08:44 | Outpatient (CLI) | payer OTHER, SELFPAY ==
[2022-07-06 09:00] VITALS: BP 128/73; PULSE 104; RESP 18; TEMP 36.4; O2SAT 100
[2022-07-06 09:46] VITALS: BP 129/82; PULSE 100; RESP 18; O2SAT 100
== END 2022-07-06 09:50 | disposition home or self-care (01) ==
LOC: INF 08:45
PROVIDERS: PCP Physician Assistant; Visit Provider Physician Assistant
DX: E61.1 Iron deficiency (principal)
CPT/HCPCS: 96365; J1439

== ENCOUNTER 2022-07-13 08:00 | Outpatient (RCR) | payer OTHER, SELFPAY ==
--- NOTE | 2022-06-01 10:54 | HMH.PTOPEV ---
PT Outpatient Evaluation Rehab PT Outpatient Evaluation Start: 06/01/22 09:52 Freq: Status: Active Protocol: Document 06/01/22 10:30 ROSAS (Rec: 06/01/22 10:53 ROSAS [id number]) Electronically Signed By Earl Chambers, PT 06/01/22 10:30 Outpatient Therapy Subjective History Subjective History Patient is a 42 year old female presenting to outpatient PT with reports of chronic cervical, thoracic and lumbar spine pain with associated BUE/BLE intermittent radicular symptoms. Symptoms of insidious onset. Most recent imaging indicates multi-level DDD/bulging discs, as well as thoracic spine mass about T4. She has underwent multiple rounds of injections/ablasions in pain management with minimal improvements noted. Symptoms overall worse R>L. Comorbidities include hx of B TKA and HTN. Chief Complaint Pain,Stiff,Paresthesia Symptom Type Sharp,Burning,Numbness, Tingling Symptoms Aggravated By Standing,Bending/Stooping, Physical Activity,Walking, Lifting Prior Functional Limitations None Current Functional Limitations Reaching,Lifting,Housework, Sleeping,Standing,Recreation Activity,Walking,Bending/ Stooping Symptom Description Constant but Variable Level of pain today (0-10) 7 Pain scale - at its best (0-10) 5 Pain scale - at its worst (0-10) 10 Cervical Eval Palpation Cervical Muscles R Suboccipital,L Suboccipital Cervical/Thoracic Palpation Findings Tenderness Posture Head/C-Spine Posture Sitting Position Extended Head/C-Spine Posture Standing Position Extended Flexibility Deficits Upper Trapezius Muscle Length (R) Moderate Tightness,(L) Moderate Tightness Pectoralis Minor Muscle Length (R) Moderate Tightness,(L) Moderate Tightness Passive Joint Mobility Cervical PIVM Dec: R OA L OA R AA L AA R C2/3 L C2/3 R C3/4
== END 2022-07-13 08:05 | disposition home or self-care (01) ==
LOC: PT 08:00
PROVIDERS: PCP Physician Assistant; Visit Provider Physician Assistant
DX: M54.2 Cervicalgia (principal); M54.6 Pain in thoracic spine; M54.50 Low back pain, unspecified
CPT/HCPCS: 97010; 97014; 97110; 97163; G0283

== ENCOUNTER 2022-07-13 08:45 | Outpatient (CLI) | payer OTHER, SELFPAY ==
[2022-07-13 09:03] VITALS: BP 126/85; PULSE 72; RESP 18; O2SAT 100
[2022-07-13 09:45] VITALS: BP 123/68; PULSE 85; RESP 18; O2SAT 100
== END 2022-07-13 09:46 | disposition home or self-care (01) ==
PROVIDERS: PCP Physician Assistant; Visit Provider Physician Assistant
DX: E61.1 Iron deficiency (principal)
CPT/HCPCS: 96365; J1439

== ENCOUNTER 2022-07-14 20:11 | Emergency (ER) | payer OTHER, SELFPAY ==
--- NOTE | 2022-07-14 19:58 | ECG_ITS ---
APPROVED REPORT Exam: Resting ECG HR:111 bpm ECG Measurements Heart Rate 111 AXES ND 134 P 59 QRSd 92 QRS 91 QT 326 T 8 QTc 391 Conclusion SINUS TACHYCARDIA BORDERLINE RIGHT AXIS DEVIATION [QRS AXIS > 90] ABNORMAL RHYTHM ECG UNCONFIRMED REPORT Electronically signed by : Michael Campo MD 07/17/2022 15:28:55
[2022-07-14 20:11] VITALS: BP 130/85; PULSE 113; RESP 18; TEMP 37.1; O2SAT 100; BMI 34.2
--- NOTE | 2022-07-14 20:23 | XR_ITS ---
PROCEDURE INFORMATION: Exam: XR Chest Exam date and time: 07/14/2022 8:27 PM Age: 42 years old Clinical indication: Pain; Chest pressure and other: Tightness; Additional info: Chest pain TECHNIQUE: Imaging protocol: Radiologic exam of the chest. Views: 2 views. COMPARISON: CR XR CHEST 2V 11/10/2021 9:50 AM FINDINGS: Lungs: No consolidation. Pleural spaces: No pneumothorax. Heart/Mediastinum: No cardiomegaly. Bones/joints: No acute fracture. IMPRESSION: No acute findings.
--- NOTE | 2022-07-14 20:36 | HMH.EDCP ---
Discharge Plan Disposition Patient Disposition: Home, Self-Care Chief Complaint: Chest Pain Prescriptions Prescriptions: No Action montelukast [Singulair] 10 mg tablet 10 mg PO DAILY cholecalciferol (vitamin D3) 50 mcg (2,000 unit) capsule 50 mcg PO DAILY pantoprazole 40 mg tablet,delayed release (DR/EC) 40 mg PO DAILY cetirizine [All Day Allergy (cetirizine)] 10 mg tablet 10 mg PO DAILY PRN (Reason: allergy) phentermine 37.5 mg tablet 37.5 mg PO DAILY Qty: 30 0RF Rx Instructions: must administer 30 minutes before or 1-2 hours after breakfast gabapentin enacarbil 600 mg tablet extended release 600 mg PO DAILY Qty: 30 2RF Rx Instructions: administer daily at approximately 5 PM with food/evening meal tizanidine 4 mg tablet 4 mg PO TID Qty: 90 0RF fluticasone propionate 120 SPR/BOT bottle 1 spr NS DAILY Rx Instructions: each nostril daily ferrous sulfate 325 mg (65 mg iron) tablet,delayed release (DR/EC) 325 mg PO BID linaclotide 145 MCG capsule 145 mcg PO DAILY Rx Instructions: TAKE 1 CAPSULE BY MOUTH ONCE DAILY hydrochlorothiazide 25 MG tablet 25 mg PO DAILY Rx Instructions: TAKE 1 TABLET BY MOUTH EVERY MORNING quetiapine [Seroquel] 50 mg tablet 50 mg PO HS Clinical Impressions Clinical Impression: Chest pain Instructions Patient Instructions: DI for Atypical Chest Pain Discharge ED Provider: Az Mills Chest Pain HPI General Chief Complaint: Chest Pain Stated Complaint: chest pain Time Seen by Provider: 07/14/22 20:36 Mode of Arrival: Ambulatory Source of Information: Patient and Medical Record Limitations: No Limitations Description of Symptoms (Recalled from ER Triage Doc. by RN): pt stated that she had an iron infusion yesterday and work up with chest pain 8/10in the left she states that it almost feels like a pulled muscle but it constant and goes up onto the arm. pt stated her heart rate is also feels elevated History of Present Illness HPI narrative: pt with lt sided chest pain which described as sharp - has iron infusions - MD complaint: chest pain indicative of cardiac Onset (ago): day(s) Duration: intermittent Activity at onset: during rest Pain location: left chest Severity: moderate Quality: sharp Pain radiation: LUE Exacerbating factors: nothing Risk Factors for CAD: Family Hx of CAD Treatments prior to or on arrival for Cardiac Chest Pain: none LUCERO Score for Non-Stemi Age of Patient: 40-49 years old Heart Rate: 90-109 bpm Systolic Blood Pressure: 100-119 mmHg Serum Creatinine: 0.80-1.19 mg/dl CHF Killip Class: I-No CHF Other Risk Factors: None Non-Stemi Risk Score: 90 Related Data On Oral Contraceptives: No Home Medications Medication Instructions Recorded Confirmed cetirizine 10 mg tablet (All Day 10 mg PO DAILY PRN allergy 11/24/21 07/13/22 Allergy (cetirizine)) cholecalciferol (vitamin D3) 50 50 mcg PO DAILY Supplement 11/24/21 07/13/22 mcg (2,000 unit) capsule montelukast 10 mg tablet 10 mg PO DAILY . 11/24/21 07/13/22 (Singulair) pantoprazole 40 mg tablet,delayed 40 mg PO DAILY GERD 11/24/21 07/13/22 release ferrous sulfate 325 mg (65 mg 325 mg PO BID . 01/03/22 07/13/22 iron) tablet,delayed release fluticasone propionate 50 1 spr intranasal DAILY Allergy 01/03/22 07/13/22 mcg/actuation nasal symptoms spray,suspension linaclotide 145 mcg capsule 145 mcg PO DAILY constipation 06/02/22 07/13/22 hydrochlorothiazide 25 mg tablet 25 mg PO DAILY bp 06/28/22 07/13/22 quetiapine 50 mg tablet (Seroquel) 50 mg PO HS sleep 07/13/22 07/13/22 Previous Rx's Medication Instructions Recorded tizanidine 4 mg tablet 4 mg PO TID . #90 tabs 02/17/22 phentermine 37.5 mg tablet 37.5 mg PO DAILY Weight loss #30 06/22/22 tabs gabapentin enacarbil 600 mg 600 mg PO DAILY Pain #30 tabs 06/27/22 tablet,extended release Allergies Allergy/AdvReac Type
[2022-07-14 20:45] LABS: Basophils # 0.1 K/mm3 (0-0.2); Eosinophils # 0.3 K/mm3 (0.0-0.4); Eosinophils % 2.5 % (0.1-12.0); Hemoglobin 13.3 g/dL (12.2-16.2); Lymphocytes # 2.7 K/mm3 (0.7-4.5); Lymphocytes % 22.5 % (10-50); Mean Corpuscular HGB Conc 33.2 g/dL (31.8-35.4); Mean Corpuscular Hemoglobin 29.1 pg (27.0-31.2); Mean Corpuscular Volume 87.8 fl (81-99); Mean Platelet Volume 8.6 fl (7.4-10.4); Monocytes # 0.5 K/mm3 (0.1-1.0); Monocytes % 4.1 % (1.7-9.3); Neutrophils # 8.4 K/mm3 (1.8-7.8); Neutrophils % 69.9 % (37.0-80.0); Platelet Count 412 K/mm3 (142-424); Red Blood Count 4.56 M/mm3 (4.20-5.40); Red Cell Distribution Width 14.4 % (11.5-17.5)
--- NOTE | 2022-07-14 20:49 | CT_ITS ---
PROCEDURE INFORMATION: Exam: CTA Chest With Contrast Exam date and time: 07/14/2022 9:08 PM Age: 42 years old Clinical indication: Pain; Chest pressure and other: Tightness; Additional info: Chest pain TECHNIQUE: Imaging protocol: Computed tomographic angiography of the chest with contrast. 3D rendering (Not supervised by radiologist): MIP and/or 3D reconstructed images were created by the technologist. Radiation optimization: All CT scans at this facility use at least one of these dose optimization techniques: automated exposure control; mA and/or kV adjustment per patient size (includes targeted exams where dose is matched to clinical indication); or iterative reconstruction. Contrast material: ISOVUE; Contrast volume: 70 ml; Contrast route: INTRAVENOUS (IV); COMPARISON: CT ANGIO CHEST 09/18/2021 2:21 PM FINDINGS: Pulmonary arteries: Normal. No pulmonary emboli. Aorta: No aortic aneurysm. No aortic dissection. Lungs: Stable cystic change at the lateral right lung base. No consolidation. No masses. Pleural spaces: No pneumothorax. No pleural effusion. Heart: No cardiomegaly. No pericardial effusion. Lymph nodes: No enlarged lymph nodes. Bones/joints: No acute fracture. Soft tissues: Status post gastric bypass. Status post cholecystectomy. IMPRESSION: No acute findings.
--- NOTE | 2022-07-14 20:50 | PC.NURSE ---
Pt ambulatory to bathroom to provide urine sample
[2022-07-14 20:59] LABS: Appearance,Urine CLEAR (Clear); Bilirubin,Urine Negative (Negative); Blood, Urine Negative (Negative); Color,Urine YELLOW (Yellow); Glucose,Urine (UA) Negative (Negative); Ketones,Urine Negative (Negative); Leukocyte Esterase,Urine Negative (Negative); Microscopic, Urine URINE MICROSCOPIC (MICROSCOPIC); Nitrate,Urine Negative (Negative); Protein,Urine Negative (Negative); Urobilinogen,Urine 0.2 EU/dl (0.2)
[2022-07-14 21:00] VITALS: BP 111/74; PULSE 95; O2SAT 99
--- NOTE | 2022-07-14 21:11 | PC.NURSE ---
Pt gone to RAD
[2022-07-14 21:18] LABS: Alanine Aminotransferase 19 U/L (12-78); Albumin Level 4.3 g/dl (3.5-5.0); Alkaline Phosphatase 116 U/L (38-126); Aspartate Amino Transferase 29 U/L (14-36); Bilirubin,Direct 0.1 mg/dl (0.0-0.4); Total Protein,Serum 6.9 g/dl (6.3-8.2)
--- NOTE | 2022-07-14 21:18 | PC.NURSE ---
Pt back from RAD
[2022-07-14 21:20] LABS: Alanine Aminotransferase 21 U/L (12-78); Albumin Level 4.5 g/dl (3.5-5.0); Albumin/Globulin Ratio 1.5 (1.1-1.8); Alkaline Phosphatase 113 U/L (38-126); Anion Gap 10.4 mEq/L (5-15); Aspartate Amino Transferase 37 U/L (14-36); Blood Urea Nitrogen 17 mg/dl (7-17); Calcium 8.7 mg/dl (8.4-10.2); Carbon Dioxide 29 mmol/L (22.0-30.0); Chloride 105 mmol/L (98-107); Creatinine Clearance Estimated 138 mL/min (50-200); Estimated Glomerular Filt Rate 79 ml/min (>60); GFR (African American) 96 ML/MIN (>60); Globulin 3.1 g/dL (1.3-3.2); Glucose 76 mg/dl (74-100); Potassium 3.4 mmoL/L (3.5-5.1); Sodium 141 mmol/L (136-145); Total Protein,Serum 7.6 g/dl (6.3-8.2)
[2022-07-14 21:21] LABS: Bilirubin,Total 0.1 mg/dl (0.2-1.3); Bilirubin,Total < 0.1 mg/dl (0.2-1.3)
[2022-07-14 21:25] LABS: C-Reactive Protein 6.7 mg/L (0-4)
[2022-07-14 21:26] LABS: Bacteria,Urine 2+ /lpf; RBC,Urine Occasional #/hpf (0-3); WBC,Urine Occasional #/hpf (0-3)
[2022-07-14 21:28] LABS: NT Pro Brain Natriuretic Pep. 45.6 pg/mL (0-125)
[2022-07-14 21:34] LABS: Troponin I < 0.01 ng/ml (0.00-0.034)
[2022-07-14 21:38] LABS: Erythrocyte Sedimentation Rate 21 mm/hr (0-20)
[2022-07-14 21:43] LABS: Procalcitonin < 0.030 ng/mL (0.0-2.0)
[2022-07-14 22:27] VITALS: BP 110/75; PULSE 88; RESP 18; TEMP 36.6; O2SAT 99
== END 2022-07-14 22:30 | disposition home or self-care (01) ==
PROVIDERS: Emergency Provider Emergency Medicine; PCP Physician Assistant
DX: R07.9 Chest pain, unspecified (principal); Z79.899 Other long term (current) drug therapy; Z88.0 Allergy status to penicillin; Z88.1 Allergy status to other antibiotic agents; Z87.19 Personal history of other diseases of the digestive system; G62.9 Polyneuropathy, unspecified; E66.9 Obesity, unspecified; Z68.34 Body mass index [BMI] 34.0-34.9, adult; D50.9 Iron deficiency anemia, unspecified; F41.9 Anxiety disorder, unspecified; G25.81 Restless legs syndrome; I10 Essential (primary) hypertension; Z90.49 Acquired absence of other specified parts of digestive tract
CPT/HCPCS: 71046; 71275; 80053; 80076; 81001; 83880; 84145; 84484; 85025; 85651; 86140; 87086; 87088; 87186; 93005; 96365; 96375; 99285; Q9967

== ENCOUNTER → 2022-07-20 11:21 | Outpatient (CLI) | payer OTHER, SELFPAY ==
[2022-07-20 13:21] LABS: Basophils # 0.1 K/mm3 (0-0.2); Eosinophils # 0.2 K/mm3 (0.0-0.4); Eosinophils % 2.5 % (0.1-12.0); Hematocrit 39.6 % (37.0-47.0); Hemoglobin 12.9 g/dL (12.2-16.2); Lymphocytes # 1.9 K/mm3 (0.7-4.5); Lymphocytes % 25.6 % (10-50); Mean Corpuscular HGB Conc 32.6 g/dL (31.8-35.4); Mean Corpuscular Hemoglobin 28.9 pg (27.0-31.2); Mean Corpuscular Volume 88.7 fl (81-99); Mean Platelet Volume 9.1 fl (7.4-10.4); Monocytes # 0.4 K/mm3 (0.1-1.0); Monocytes % 5.2 % (1.7-9.3); Neutrophils # 4.8 K/mm3 (1.8-7.8); Neutrophils % 65.8 % (37.0-80.0); Platelet Count 353 K/mm3 (142-424); Red Blood Count 4.47 M/mm3 (4.20-5.40); White Blood Count 7.3 K/mm3 (4.8-10.8)
[2022-07-20 13:22] LABS: Chloride 105 mmol/L (98-107); Sodium 140 mmol/L (136-145)
[2022-07-20 13:23] LABS: Potassium 3.9 mmoL/L (3.5-5.1)
[2022-07-20 13:25] LABS: Blood Urea Nitrogen 12 mg/dl (7-17); Estimated Glomerular Filt Rate 93 ml/min (>60); GFR (African American) 112 ML/MIN (>60); Iron 83 ug/dL (37-170)
[2022-07-20 13:26] LABS: Anion Gap 7.9 mEq/L (5-15); Calcium 8.2 mg/dl (8.4-10.2); Carbon Dioxide 31 mmol/L (22.0-30.0); Glucose 79 mg/dl (74-100)
[2022-07-20 13:35] LABS: Total Iron Binding Capacity 267 ug/dL (265-497)
[2022-07-20 14:01] LABS: Ferritin 652 ng/ml (6.24-137)
== END ==
PROVIDERS: PCP Physician Assistant; Visit Provider Physician Assistant
DX: D50.9 Iron deficiency anemia, unspecified (principal); E87.6 Hypokalemia
CPT/HCPCS: 36415; 80048; 82728; 83540; 83550; 85025

== ENCOUNTER → 2022-07-27 09:01 | Outpatient (CLI) | payer OTHER, SELFPAY ==
--- NOTE | 2022-07-27 09:02 | CA_ITS ---
APPROVED REPORT Exam: Exercise Treadmill Technologist: Cami Palafox, Ht: 5 ft 5 in Wt: 216 lbs BSA: 2.04 m2 HR: 99 bpm BP: 125/83 mmHg Rhythm: NSR, RIGHTWARD AXIS, ST ABN LEAD III Medical History Medications: Ferrous sulfate,,,,, Gabapentin,,,,, Hydrochlorothiazide,,,,, Pantoprazole,,,,, Montelukast,,,,, Vit D3,,,,, Phentermine,,,,, LiNACLOTIDE,,,,, TizanDINE,,,,, FluTICASONE Propionate,,,,, Ceterizine,,,,, Cipro,,,,, Allergies: CEFACLOR, PENICILLIN, CEPHALOSPORINS, AMLODIPINE Cardiac Risk Factors: FHX of CAD Stress Test Details Test: Abida HR Resting HR: 110 bpm Max Heart Rate (APMHR): 180.423322 bpm Max HR Achieved: 174 bpm Target HR (85% APMHR): 153.286752 bpm % of APMHR: 96.67 Recovery HR: 109 bpm BP Resting BP: 125/83 mmHg Max BP: 181/104 mmHg Recovery BP: 115.0/78.0 mmHg ECG Resting ECG: NSR, RIGHTWARD AXIS, ST ABN LEAD III Clinical Exercise duration: 07:55 min Highest Stage Achieved: Exercise capacity: 10.1 METs Stress ECG Conclusion PT EXERCISED 7:55 INTO STAGE 3 OF ABIDA PROTOCOL. MAX HR: 174 % OF PM: 97% MAX B/P: 181/104 METS: 10.1 TEST STOPPED DUE TO: SOA,FATIGUE NO CHANGE IN PRE-TEST CHEST DISCOMFORT WITH EXERCISE EXAGGERATION OF BASELINE ST-T ABNS IN LEAD III, 0.5MM HORIZONTAL ST DEPRESSION IN LEAD AVF. PROBABLY NORMAL GXT GXT ONLY (NO IMAGING) Electronically signed by : Michael Campo MD 07/27/2022 17:41:49
--- NOTE | 2022-07-27 10:55 | MR_ITS ---
FINAL REPORT CLINICAL HISTORY: LOW BACK PAIN COMPARISON: 02/25/2022 FINDINGS: Multiplanar MR imaging of the lumbar spine was performed without contrast. On the sagittal T2-weighted images, decreased signal seen at L1-2, L2-3 and L3-4. The vertebral alignment is normal. There is no evidence of fracture. No bony mass is identified. The conus is seen at approximately the L1 level and has an unremarkable appearance. L1-2: Mild broad-based disc bulge and left paracentral disc protrusion with mild left lateral recess stenosis. L2-3: Mild diffuse disc bulge with mild bilateral neural foraminal narrowing. L3-4: Mild diffuse disc bulge with mild bilateral neural foraminal narrowing. L4-5: Mild diffuse disc bulge with right posterolateral disc protrusion and annular tear. There is mild right neural foraminal narrowing. L5-S1: There is no significant canal stenosis or neural foraminal narrowing. IMPRESSION: Stable left paracentral disc protrusion at L1-2 with mild left lateral recess stenosis. Mild worsening of right posterolateral disc protrusion at L4-5 with mild right neural foraminal narrowing. Reviewed, Interpreted and Dictated by José Luis Muñiz MD Transcribed by Lesvia Nation Authenticated and [facility]
== END ==
PROVIDERS: PCP Physician Assistant; Visit Provider Nurse Practitioner Family
DX: M54.50 Low back pain, unspecified (principal)
CPT/HCPCS: 72148; 76376; 93017

== ENCOUNTER → 2022-07-28 13:38 | Outpatient (CLI) | payer OTHER, SELFPAY ==
--- NOTE | 2022-07-28 13:40 | MR_ITS ---
FINAL REPORT CLINICAL HISTORY: lesion T4 Reviewed, Interpreted and Dictated by José Luis Muñiz MD Transcribed by Ro Ochoa Authenticated and [facility]
== END ==
PROVIDERS: PCP Physician Assistant; Visit Provider Physician Assistant
DX: G54.3 Thoracic root disorders, not elsewhere classified (principal)
CPT/HCPCS: 72146

== ENCOUNTER → 2022-08-01 13:07 | Outpatient (CLI) | payer OTHER, SELFPAY ==
[2022-08-01 13:42] LABS: Basophils # 0.1 K/mm3 (0-0.2); Basophils % 0.9 % (0.1-2.0); Eosinophils # 0.3 K/mm3 (0.0-0.4); Eosinophils % 3.1 % (0.1-12.0); Hematocrit 42.4 % (37.0-47.0); Hemoglobin 13.9 g/dL (12.2-16.2); Mean Corpuscular HGB Conc 32.8 g/dL (31.8-35.4); Mean Corpuscular Hemoglobin 29.5 pg (27.0-31.2); Mean Platelet Volume 8.9 fl (7.4-10.4); Monocytes # 0.6 K/mm3 (0.1-1.0); Monocytes % 6.5 % (1.7-9.3); Neutrophils # 5.6 K/mm3 (1.8-7.8); Neutrophils % 66.3 % (37.0-80.0); Platelet Count 375 K/mm3 (142-424); Red Blood Count 4.71 M/mm3 (4.20-5.40); Red Cell Distribution Width 15.4 % (11.5-17.5); White Blood Count 8.5 K/mm3 (4.8-10.8)
[2022-08-01 14:08] LABS: Chloride 104 mmol/L (98-107); Sodium 142 mmol/L (136-145)
[2022-08-01 14:09] LABS: Potassium 4.2 mmoL/L (3.5-5.1)
[2022-08-01 14:12] LABS: Anion Gap 13.2 mEq/L (5-15); Blood Urea Nitrogen 15 mg/dl (7-17); Calcium 8.7 mg/dl (8.4-10.2); Carbon Dioxide 29 mmol/L (22.0-30.0); Estimated Glomerular Filt Rate 93 ml/min (>60); GFR (African American) 112 ML/MIN (>60); Glucose 80 mg/dl (74-100)
== END ==
PROVIDERS: PCP Physician Assistant; Visit Provider Internal Medicine Cardiovascular Disease
DX: Z01.812 Encounter for preprocedural laboratory examination (principal); Z20.822 Contact with and (suspected) exposure to COVID-19; R00.0 Tachycardia, unspecified; I20.8 Other forms of angina pectoris; I10 Essential (primary) hypertension; R94.39 Abnormal result of other cardiovascular function study; E66.01 Morbid (severe) obesity due to excess calories
CPT/HCPCS: 36415; 80048; 85025; C9803; U0003; U0005

== ENCOUNTER 2022-08-02 09:23 | Day surgery (SDC) | payer OTHER, SELFPAY ==
[2022-08-02] VITALS (12 sets, daily range): BP systolic 125–140; BP diastolic 80–87; PULSE 77–118; RESP 16–18; O2SAT 98–100; BMI 36.6
--- NOTE | 2022-08-02 | IR_ITS ---
APPROVED REPORT Patient Location: Outpatient PROCEDURES Left heart catheterization Left ventriculogram Selective coronary angiogram INDICATION Progressive typical angina pectoris, Numerous risk factors for coronary disease Informed consent was obtained prior to the procedure. COMPLICATIONS NONE Estimated Blood Loss: LESS THAN 10 ML TECHNIQUE One percent lidocaine used to anesthetize the right anterior aspect of the wrist. The right radial artery was accessed via the Seldinger technique. A 6 Swedish sheath was placed in the right radial artery. 2.5 mg of verapamil, 800 mcg of nitroglycerin, 1mg Lidocaine and 5000 U Heparin were given through the arterial sheath. The papa catheter was also used to perform left heart catheterization, left ventriculogram and selective coronary angiogram. At the end of the procedure the sheath was removed good hemostasis was achieved using Traclet band, patient was transferred to the postop holding area in stable condition. ANGIOGRAPHIC RESULTS The left main artery Normal The left anterior descending artery Normal The circumflex artery Normal The right coronary artery Dominant normal The SINGH ventriculogram reveals Normal 65% The left ventricular end-diastolic pressure 15 mmHg IMPRESSION Normal coronary arteries Normal ejection fraction Borderline elevated LVEDP PLAN 1. Evaluation of noncardiac symptoms Electronically signed by : Neal Rosenthal MD 08/02/2022 11:02:49
--- NOTE | 2022-08-02 13:26 | SUR.PHASEII ---
MD at bedside to evaluate pt's right wrist due to pt c/o pain at this time. verbal order given to obtain ultrasound of wrist and to administer 1mg Dilaudid and 30 mg Toradol. Medication Read Back and Verified.
--- NOTE | 2022-08-02 13:28 | CA_ITS ---
FINAL REPORT CLINICAL HISTORY: Pt had cath today. pain post cath FINDINGS: Spectral and Doppler waveform evaluations of the right wrist was performed. Spectral analysis was performed. The radial artery is patent. There is no sign of pseudoaneurysm or significant surrounding hematoma. IMPRESSION: No evidence of aneurysm. Reviewed, Interpreted and Dictated by Bernadette Alfredo MD Transcribed by Ro Ochoa Authenticated and [facility]
--- NOTE | 2022-08-02 13:56 | SUR.PHASEII ---
Spoke with DARREL Guevara in regards to calling in Percocet 10mg every [address] Rosenthal. pt medicated per JAN prior to discharge and informed of picking up prescription at [facility].
== END 2022-08-02 14:07 | disposition home or self-care (01) ==
LOC: CATHLAB 09:24
PROVIDERS: PCP Physician Assistant; Visit Provider Internal Medicine
DX: I20.8 Other forms of angina pectoris (principal); I10 Essential (primary) hypertension; R94.39 Abnormal result of other cardiovascular function study; Z79.899 Other long term (current) drug therapy; R07.2 Precordial pain; Z82.49 Family history of ischemic heart disease and other diseases of the circulatory system
CPT/HCPCS: 93458; 93931; 99152; C1725; C1769; J1644; Q9967

== ENCOUNTER → 2022-08-08 14:16 | Outpatient (POV) | payer OTHER, SELFPAY ==
[2022-08-08 15:08] VITALS: BP 157/101; PULSE 104; RESP 18; TEMP 37.1; O2SAT 100; BMI 35.7
--- NOTE | 2022-08-08 15:17 | EXP.PAIN.SOA ---
[facility] Pain Management SOAP Note Subjective:: Patient is a pleasant 42-year-old female that presents today for follow-up of MRI imaging. We are currently treating the patient for neck pain with cervical radicular symptoms, mid/low back pain. Today the patient rates her pain a 8 out of 10. She states the pain is all in her low back that radiates into her bilateral lower extremities as well as chest tightness and pain in her neck. Patient denies any new trauma or injury to the site. Patient states that she has had her chest pain checked out by Dr. Rosenthal and Rock. She states it is more of a tightness than a chest pain but it does radiate into her bilateral arms with tingling and numbness in her fingers. Patient states she did have a heart cath last week and states that they stated she had no cardiac issues. Patient has also been checked out by a GI specialist regarding her Chavez's esophagus that could be presenting as chest pain as well. She states that she has had scopes however there were no findings consistent to explain the chest pain. Patient is also been worked up for anxiety related issues by her primary care doctor and was prescribed a medication however she has been on that medication for over a month and still continues to have the chest tightness/pain. Patient was scheduled to see Dr. Espino in [place] however her insurance was not accepted at his office. She is currently waiting on a referral to Dr. Renteria's office. Patient has had injective therapy in the past including epidurals and SI injections. Patient states that the RFA helps significantly however she has already had 2 this year and cannot have any additional. Patient was previously managed with tramadol 50 mg 3 times a day however she stopped taking this because she thought it was causing her insomnia. She did have a sleep study and other tests ruling out that the tramadol was the cause of this issue. She is requesting a refill of this medication at today's visit. She also is prescribed tizanidine which she states needs a refill on. Patient was prescribed Percocet 10 mg for [address] Rosenthal's office related to her heart cath procedure. She states she does not have any medication left of this prescription. Patient does have a 16 mm cystic mass in the left paraspinous region at T4 that has been seen at [facility]. They did state that they thought it was benign. Patient is currently doing physical therapy. Her Amari is [phone]. It has been reviewed and appropriate. Review of Systems: General: No recent weight changes, no fever, no sleep disturbances Respiratory: No cough, no shortness of air, no recurring pulmonary infections Cardiovascular/peripheral vascular: No chest pain, no palpitations, no edema, no shortness of breath Gastrointestinal: No new onset incontinence, normal bowel movements reported Genitourinary: No new onset incontinence Musculoskeletal: Low back pain, bilateral leg pain, chest pain, neck pain Psychiatric: [Normal mood/affect] Neurological: [Denies weakness in extremities], [denies balance issues] Objective:: Physical Exam: General: Alert and oriented x3, no acute distress, pleasant and cooperative Lungs: Respirations even and unlabored, symmetrical chest expansion Eyes: PERRL Musculoskeletal: Flexion and extension of cervical, lumbar [spine] somewhat guarded secondary to pain, [antalgic gait noted]. Extreme point tenderness along bilateral SI and positive bilateral Carmelina's, Arianna's, Gaenslen's, compression and distraction exam Neurological: Speech clear, no gross sensory deficit Assessment:: Neck pain with cervical radiculopathy symptoms, mid/low back pain, sacroiliitis Plan:: Patient continues to have significant pain in her neck, chest, low back, bilateral lower extremities. Patient did have limited range of motion of her cervical and lumbar spine during today's exam. She did have extreme point tenderness along bilateral SI's and posi
== END | disposition home or self-care (01) ==
PROVIDERS: PCP Physician Assistant; Visit Provider Nurse Practitioner Family
DX: M46.1 Sacroiliitis, not elsewhere classified (principal); M54.12 Radiculopathy, cervical region; M54.50 Low back pain, unspecified
CPT/HCPCS: 99212; G0463

== ENCOUNTER 2022-08-16 11:27 | Day surgery (SDC) | payer OTHER, SELFPAY ==
[2022-08-16 11:42] VITALS: BP 140/91; PULSE 91; RESP 16; TEMP 36.8; O2SAT 100; BMI 35.7
[2022-08-16 11:54] VITALS: BP 144/90; PULSE 93; RESP 18; O2SAT 99
[2022-08-16 11:55] VITALS: BP 144/90; PULSE 93; RESP 18; O2SAT 99
--- NOTE | 2022-08-16 11:59 | P.PCN_ITS ---
Procedure Date: 08/16/22 Time: 11:59 Anesthesiologist:: Denis Hare CRNA Complications:: None Pre-procedure Diagnosis:: Bilateral sacroiliitis Post-procedure Diagnosis:: Same. Indications for Procedure:: Patient is a pleasant 42-year-old female that comes our clinic today for bilateral SI joint injections. Patient has extreme point tenderness over the bilateral SI joints upon examination. She complains of low back pain bilateral hip pain. Pain increases significantly when sitting and/or standing for any length of time. She rates her pain 8/10 Procedure Details:: Procedure: Bilateral sacroiliac joint injections under fluoroscopy Informed consent was obtained and the risks and benefits of the procedure were explained to the patient.~ The patient was taken to the procedure room and noninvasive monitors were placed including a noninvasive blood pressure cuff and pulse oximeter.~ The patient was placed prone on the procedure table. Both hips were cleansed using Betadine as a cleansing solution. C-arm fluoroscopy was used to view the right sacroiliac joint.~ The skin and subcutaneous tissues were anesthetized using lidocaine 1.5% and a 25-gauge needle.~ After this, a 22-gauge spinal needle was inserted under fluoroscopic guidance into the inferior aspect of the right sacroiliac joint.~ Omnipaque dye was injected and good spread was seen throughout the joint.~ After this, approximately 5 mL of bupivacaine, 0.25% and Depo-Medrol, 40 mg was incrementally injected into the right sacroiliac joint. We then moved to the left sacroiliac joint.~ The skin and subcutaneous tissues were anesthetized using lidocaine 1.5% and a 25-gauge needle.~ After this, a 22- gauge spinal needle was inserted under fluoroscopic guidance into the inferior aspect of the left sacroiliac joint.~ Omnipaque dye was injected and good spread was seen throughout the joint. After this, approximately 5 mL of bupivacaine, 0.25% and Depo-Medrol, 40 mg was incrementally injected into the left sacroiliac joint.~ The patient tolerated the procedure well with no complications. The patient was observed in the Pain Clinic and then was discharged home neurologically intact. Plan and Disposition:: Patient was discharged without incident
[2022-08-16 12:04] VITALS: BP 143/85; PULSE 78; RESP 18; O2SAT 100
== END 2022-08-16 12:05 | disposition home or self-care (01) ==
PROVIDERS: PCP Physician Assistant; Visit Provider Nurse Anesthetist, Certified Registered
DX: M46.1 Sacroiliitis, not elsewhere classified (principal)
CPT/HCPCS: 27096; G0260; J1030

== ENCOUNTER → 2022-08-30 10:16 | Outpatient (CLI) | payer OTHER, SELFPAY ==
[2022-08-30 11:09] LABS: Basophils # 0.1 K/mm3 (0-0.2); Basophils % 0.7 % (0.1-2.0); Eosinophils # 0.2 K/mm3 (0.0-0.4); Eosinophils % 1.9 % (0.1-12.0); Hematocrit 39.7 % (37.0-47.0); Hemoglobin 13.1 g/dL (12.2-16.2); Lymphocytes # 2.1 K/mm3 (0.7-4.5); Lymphocytes % 21.9 % (10-50); Mean Corpuscular Hemoglobin 30.1 pg (27.0-31.2); Mean Corpuscular Volume 91.4 fl (81-99); Mean Platelet Volume 8.7 fl (7.4-10.4); Monocytes # 0.5 K/mm3 (0.1-1.0); Monocytes % 5.4 % (1.7-9.3); Neutrophils # 6.6 K/mm3 (1.8-7.8); Neutrophils % 70.1 % (37.0-80.0); Platelet Count 304 K/mm3 (142-424); Red Blood Count 4.34 M/mm3 (4.20-5.40); Red Cell Distribution Width 14.8 % (11.5-17.5); White Blood Count 9.4 K/mm3 (4.8-10.8)
[2022-08-30 12:06] LABS: Iron 101 ug/dL (37-170)
[2022-08-30 12:16] LABS: Total Iron Binding Capacity 311 ug/dL (265-497)
[2022-08-30 12:17] LABS: Total Iron Binding Capacity 315 ug/dL (265-497)
[2022-08-30 12:43] LABS: Ferritin 125 ng/ml (6.24-137)
== END ==
PROVIDERS: PCP Physician Assistant; Visit Provider Nurse Practitioner Family
DX: E83.10 Disorder of iron metabolism, unspecified
CPT/HCPCS: 36415; 82728; 83540; 83550; 85025

== ENCOUNTER → 2022-08-30 10:36 | Outpatient (POV) | payer OTHER, SELFPAY ==
[2022-08-30 10:55] VITALS: BP 134/80; PULSE 92; RESP 18; TEMP 37.1; O2SAT 99; BMI 36.6
--- NOTE | 2022-08-30 11:16 | EXP.PAIN.SOA ---
[facility] Pain Management SOAP Note Subjective:: Patient is a pleasant 42-year-old female who presents today for follow-up of bilateral SI injections on 08/16/2022. We are currently treating the patient for neck pain with cervical radiculopathy symptoms, mid/low back pain, sacroiliitis. Patient states she had 75% relief following these injections lasting roughly 4 days however she feels like she is back at baseline. Today the patient rates her pain a 8 out of 10. She states the pain is in her low back that radiates into her bilateral lower extremities. Patient states she frequently has trouble sleeping due to her pain symptoms and being unable to tolerate positioning on her sides. Previously we did discuss regarding having imaging of her hips and pelvis if she did not have significant improvement following these injections. Patient also continues to have chest tightness and pain in and around her neck. Patient denies any new trauma or injury. She denies any change in location or type of pain she experiences. Patient has been checked out by cardiology regarding the chest pain with no abnormal findings. Patient is also been seen by a GI specialist for her Chavez's esophagus which could be causing some of her symptoms however there were no abnormal findings either. She is scheduled to have a repeat scope in September. Patient was also worked up for anxiety related issues by her primary care doctor and was prescribed Valium. At our last visit we had tried to do a referral to neurosurgery however she has had trouble due to minimal offices that accept her insurance. She did see a physician in Dr. Hernandes's office however he wanted to monitor the 16mm cystic mass in the left paraspinous region at T4 and not plan on removing it. Neurosurgery did think that the cyst was benign. Patient is scheduled for a follow-up with Dr. Hansen office on October 14 however the patient was still wanting a second opinion. Patient has done physical therapy however this has not improved her symptoms. She is also tried multiple injective therapies that have provided significant relief including an RFA of her lumbar spine. She is currently managed with tramadol 50 mg 3 times a day. Patient denies any side effects from this medication. She states this medication does adequately help manage some of her pain symptoms. She is requesting refill at today's visit. Her Amari is [id number]. It has been reviewed and appropriate. Review of Systems: General: No recent weight changes, no fever, no sleep disturbances Respiratory: No cough, no shortness of air, no recurring pulmonary infections Cardiovascular/peripheral vascular: No chest pain, no palpitations, no edema, no shortness of breath Gastrointestinal: No new onset incontinence, normal bowel movements reported Genitourinary: No new onset incontinence Musculoskeletal: Low back pain, bilateral leg pain Psychiatric: [Normal mood/affect] Neurological: [Denies weakness in extremities], [denies balance issues] Objective:: Physical Exam: General: Alert and oriented x3, no acute distress, pleasant and cooperative Lungs: Respirations even and unlabored, symmetrical chest expansion Eyes: PERRL Musculoskeletal: Flexion and extension of lumbar [spine] somewhat guarded secondary to pain, [antalgic gait noted] Neurological: Speech clear, no gross sensory deficit Assessment:: Neck pain with cervical radiculopathy symptoms, mid/low back pain, sacroiliitis Plan:: Patient continues to have significant pain in her low back that radiates into her bilateral lower extremities. Patient did have significant 75% relief following her bilateral SI injections. I have discussed with the patient regarding RFA of her SI joints. Risk and benefits have been discussed with the patient. She would like to proceed forward with this plan of care. I will order the patient an MRI without contrast of her bilateral hips and pelvis. I will also refill the patient's tramadol 50 mg 3
== END | disposition home or self-care (01) ==
PROVIDERS: Visit Provider Nurse Practitioner Family
DX: M54.12 Radiculopathy, cervical region (principal); M46.1 Sacroiliitis, not elsewhere classified; M54.50 Low back pain, unspecified
CPT/HCPCS: 99212; G0463

== ENCOUNTER → 2022-09-07 15:16 | Outpatient (CLI) | payer OTHER, SELFPAY ==
--- NOTE | 2022-09-07 15:21 | MR_ITS ---
PROCEDURE INFORMATION: Exam: MR Right Lower Extremity Joint Without Contrast; Hip Exam date and time: 09/07/2022 3:40 PM Age: 42 years old Clinical indication: Pain; Hip; Right; Additional info: Lbp with bilateral hip pain. Pain worse on right side. X 6-7 months TECHNIQUE: Imaging protocol: Magnetic resonance imaging of the Right lower extremity joint without contrast. Exam focused on the hip. COMPARISON: CT ABDOMEN PELVIS WO CON 06/04/2021 8:34 AM FINDINGS: Bones and cartilage: Some of the sequences are included with the MRI left hip from the same day. No visualized acute marrow edema, avascular necrosis, or acute fracture involving the right hip. For discussion of findings involving the left hip, refer to the MRI left hip report from the same day. Heterogeneous signal intensity of the visualized bone marrow on T1, likely representing hematopoietic hyperplasia. Narrowing of the bilateral hip joints superiorly, consistent with mild arthropathy. Joint spaces: Minimal right hip joint effusion. Labrum: Increased signal intensity within the anterosuperior aspect of the right hip labrum, with suggested labral tear. TENDONS: Tendons of iliopsoas group: Unremarkable. No evidence of tear. Tendons of medial compartment of thigh: No evidence of tear. Tendons of lateral rotators of hip: No evidence of tear. Tendons of gluteal group: Minimal increased STIR signal intensity is identified adjacent to the great greater trochanter as well as the gluteus medius and minimus tendons. This is suggestive of gluteal tendinopathy. There is a tiny partial tear of the distal gluteus minimus tendon. Muscles: No visualized acute abnormality. Soft tissues: See above. Lymph nodes: Nonspecific inguinal lymph nodes bilaterally. IMPRESSION: 1. No visualized acute marrow edema, avascular necrosis, or acute fracture involving the right hip. 2. Minimal right hip joint effusion. 3. There is a tiny partial tear of the distal gluteus minimus tendon. Suggested gluteal tendinopathy. 4. Increased signal intensity within the anterosuperior aspect of the right hip labrum, with suggested labral tear. 5. Mild bilateral hip arthropathy. 6. Additional findings described above.
--- NOTE | 2022-09-07 15:21 | MR_ITS ---
PROCEDURE INFORMATION: Exam: MR Pelvis Without Contrast Exam date and time: 09/07/2022 3:40 PM Age: 42 years old Clinical indication: Hip pain; Bilateral; Additional info: Cristofer. Hip pain. Lbp with bilateral hip pain. Pain worse on right side. X 6-7 months TECHNIQUE: Imaging protocol: Magnetic resonance imaging of the pelvis without contrast. COMPARISON: CT ABDOMEN PELVIS WO CON 06/04/2021 8:34 AM FINDINGS: Intraperitoneal space: No free fluid. Urinary bladder: The bladder is unremarkable. Reproductive: The uterus is absent. A few cystic collections of fluid are seen within the right adnexa or right ovary. The largest measures 2.4 cm in diameter. Lymph nodes: Nonspecific bilateral inguinal and intrapelvic lymph nodes are seen. Bones/joints: For discussion of findings involving the bilateral hips, refer to the associated hip MRI reports from the same day. Mild patchy marrow edema within the sacrum on each side adjacent to the bilateral sacroiliac joints. This is likely secondary to arthropathy. Soft tissues: Mild left and minimal right edema adjacent to the greater trochanters. A subcentimeter cystic collection of fluid is identified adjacent to the right L4-L5 facet joint, consistent with a synovial cyst. Stomach and bowel: Rectal wall thickening is visualized, suggestive of proctitis. Additional pathology cannot be excluded. IMPRESSION: 1. Mild patchy marrow edema within the sacrum on each side adjacent to the bilateral sacroiliac joints. This is likely secondary to arthropathy. 2. Rectal wall thickening is visualized, suggestive of proctitis. Additional pathology cannot be excluded. Clinical correlation recommended. 3. A few cystic collections of fluid are seen within the right adnexa or right ovary. Follow-up ultrasonography suggested. 4. Nonspecific bilateral inguinal and intrapelvic lymph nodes are seen. 5. Additional findings described above.
--- NOTE | 2022-09-07 15:21 | MR_ITS ---
PROCEDURE INFORMATION: Exam: MR Left Lower Extremity Joint Without Contrast; Hip Exam date and time: 09/07/2022 3:40 PM Age: 42 years old Clinical indication: Pain; Hip; Left; Additional info: Lbp with bilateral hip pain. Pain worse on right side. X 6-7 months TECHNIQUE: Imaging protocol: Magnetic resonance imaging of the Left lower extremity joint without contrast. Exam focused on the hip. COMPARISON: CT ABDOMEN PELVIS WO CON 06/04/2021 8:34 AM FINDINGS: Bones and cartilage: No visualized acute marrow edema, avascular necrosis, or acute fracture involving the left hip. For discussion of findings involving the right hip, refer to the MRI left hip report from the same day. Heterogeneous signal intensity of the visualized bone marrow on T1, likely representing hematopoietic hyperplasia. Narrowing of the bilateral hip joints superiorly, consistent with mild arthropathy. Joint spaces: Minimal left hip joint effusion. Labrum: Mild heterogeneous signal intensity of the anterior superior aspect of the left hip labrum, although labral tear is not well-defined. TENDONS: Tendons of iliopsoas group: Unremarkable. No evidence of tear. Tendons of medial compartment of thigh: No evidence of tear. Tendons of lateral rotators of hip: No evidence of tear. Tendons of gluteal group: Mild increased STIR signal intensity is identified adjacent to the great greater trochanter as well as the gluteus medius and minimus tendons. This is consistent with gluteal tendinopathy/trochanteric bursitis. Muscles: No visualized acute abnormality. Soft tissues: See above. Lymph nodes: Nonspecific inguinal lymph nodes bilaterally. Reproductive: The uterus is absent. IMPRESSION: 1. No visualized acute marrow edema, avascular necrosis, or acute fracture involving the left hip. 2. MR findings consistent with left gluteal tendinopathy/trochanteric bursitis. 3. Minimal left hip joint effusion. 4. Mild bilateral hip arthropathy. 5. Additional findings described above.
== END ==
PROVIDERS: PCP Physician Assistant; Visit Provider Nurse Practitioner Family
DX: M25.551 Pain in right hip (principal); M25.552 Pain in left hip; R10.2 Pelvic and perineal pain
CPT/HCPCS: 72195; 73721

== ENCOUNTER 2022-09-13 08:14 | Day surgery (SDC) | payer OTHER, SELFPAY ==
[2022-09-13 08:22] VITALS: BP 146/89; PULSE 118; RESP 18; TEMP 36.7; O2SAT 100; BMI 36.6
[2022-09-13 09:06] VITALS: BP 137/86; PULSE 98; RESP 18; O2SAT 97
[2022-09-13 09:13] VITALS: BP 137/86; PULSE 98; RESP 18; O2SAT 97
--- NOTE | 2022-09-13 09:18 | EXP.PAIN.PRO ---
Procedure Date: 09/13/22 Time: 09:10 Anesthesiologist:: Denis Hare CRNA Complications:: None Pre-procedure Diagnosis:: Left sacroiliitis Post-procedure Diagnosis:: Same Indications for Procedure:: Very pleasant 42-year-old female that comes our clinic today for left sacroiliac joint radiofrequency ablation. She has had successful diagnostic injections into the left sacroiliac joint. Procedure Details:: Details of the procedure were explained to the patient. The patient taken the procedure room placed in the prone position on the fluoroscopy table. The area over the left lumbar spine was cleaned using chlorhexidine as a cleansing solution. Using fluoroscopy guidance for markers were placed over the lower one third of the left sacroiliac joint. The skin and subcutaneous tissue was anesthetized using 1% lidocaine and 25-gauge needle. At this time to radiofrequency ablation needles were inserted and placed 1 cm medial to the lower one third sacroiliac joint. After negative motor stimulation 3 cc of 1% lidocaine and 20 mg of Depo-Medrol was injected at each site. At this time the RFA was carried out at 80 ?C for 2 minutes. Both needles were then adjusted 1 cm superiorly. 3 cc of 1% lidocaine and 20 mg of Depo-Medrol was injected again at each site. The RFA was then carried out for 2 minutes at 80 ?C. Patient tolerated procedure without difficulty. There are no complications. Plan and Disposition:: Patient was discharged from the clinic without incident.
[2022-09-13 09:45] VITALS: BP 141/88; PULSE 98; RESP 18; O2SAT 100
== END 2022-09-13 09:45 | disposition home or self-care (01) ==
PROVIDERS: PCP Physician Assistant; Visit Provider Nurse Anesthetist, Certified Registered
DX: M46.1 Sacroiliitis, not elsewhere classified (principal)
CPT/HCPCS: 64625; J1040

== ENCOUNTER → 2022-09-21 15:16 | Outpatient (CLI) | payer OTHER, SELFPAY ==
--- NOTE | 2022-09-21 15:16 | MM_ITS ---
PROCEDURE INFORMATION: Exam: Bilateral Screening 3D Mammography Exam date and time: 09/21/2022 3:22 PM Age: 42 years old Clinical indication: Baseline. No family history of breast cancer. TECHNIQUE: Imaging protocol: Bilateral Screening tomosynthesis and 2D mammography including computer-aided detection (CAD) when performed. COMPARISON: No relevant prior studies available. FINDINGS: MAMMOGRAPHY: Breast composition: There are scattered areas of fibroglandular density. Mass: None. Architectural distortion: None. Calcifications: No suspicious calcifications. Asymmetric density: None. Skin thickening: None. Axillary adenopathy: None. IMPRESSION: No mammographic evidence of malignancy. Annual screening is recommended unless otherwise clinically indicated. ASSESSMENT: BI-RADS Category 1: Negative
== END ==
PROVIDERS: PCP Physician Assistant; Visit Provider Physician Assistant
DX: Z12.31 Encounter for screening mammogram for malignant neoplasm of breast (principal)
CPT/HCPCS: 77063; 77067

== ENCOUNTER → 2022-09-27 10:15 | Outpatient (POV) | payer OTHER, SELFPAY ==
[2022-09-27 10:36] VITALS: BP 133/93; PULSE 115; RESP 18; O2SAT 99; BMI 36.6
--- NOTE | 2022-09-27 12:56 | EXP.PAIN.SOA ---
[facility] Pain Management SOAP Note Subjective:: Patient is a pleasant 42-year-old female who presents today for follow-up of left SI RFA on 09/13/2022. We are currently treating the patient for degenerative disc disease of lumbar spine with lumbar radiculopathy symptoms, cervical radiculopathy symptoms, neck pain, sacroiliitis, bilateral hip pain. Today the patient states that she has had at least 70% improvement following this procedure and feels like it is continuing to help. Today she rates her pain an 8 out of 10 and states the pain is all along her right side. Patient denies any new trauma or injury. Patient denies any change in location or type of pain she experiences. Patient describes this as a aching, throbbing sensation that is worse with increased activity. Patient states she often is unable to tolerate prolonged sitting or standing due to the pain and this does affect her ability to perform activities of daily living. Patient also states she continues to have difficulty in sleeping at night due to the pain. At her last visit we did order MRI imaging of her bilateral hips and pelvis due to continuing pain. Patient states she has reviewed these imaging with her primary care doctor and she is going to see Dr. Ulrich for evaluation of the 2.4 cm cyst mentioned on her MRI. Patient is also scheduled to see a orthopedic doctor for her bilateral hip pain and arthritis. Patient is also continuing to experience chest tightness and pain in and around her neck. Patient has been been checked out by her GI specialist, box repairer with no abnormal findings. Patient is scheduled for a repeat EGD tomorrow with Dr. Garza for reevaluation of her Chavez's esophagus. She was found to have a 16mm cystic mass in her left paraspinous region at T4 and was evaluated by Dr. Hansen however he wanted to monitor the mass and not remove it. Patient is scheduled for a follow-up visit with him on October 14 and she is wanting to see about having this taken out. Patient has had multiple injective therapies in the past that provided significant improvement of her symptoms. She is also been to physical therapy however this did not help and often aggravated her symptoms. She is currently managed with tramadol 50 mg 3 times a day. Patient denies any side effects from this medication. She stated it does help some of her pain symptoms. She is requesting a refill at today's visit. Her Amari is [phone]. It has been reviewed and appropriate. Review of Systems: General: No recent weight changes, no fever, no sleep disturbances Respiratory: No cough, no shortness of air, no recurring pulmonary infections Cardiovascular/peripheral vascular: No chest pain, no palpitations, no edema, no shortness of breath Gastrointestinal: No new onset incontinence, normal bowel movements reported Genitourinary: No new onset incontinence Musculoskeletal: Low back pain, right leg pain Psychiatric: [Normal mood/affect] Neurological: [Denies weakness in extremities], [denies balance issues] Objective:: Physical Exam: General: Alert and oriented x3, no acute distress, pleasant and cooperative Lungs: Respirations even and unlabored, symmetrical chest expansion Eyes: PERRL Musculoskeletal: Flexion and extension of lumbar [spine] somewhat guarded secondary to pain, [antalgic gait noted] extreme point tenderness along right SI and positive right Carmelina's, Arianna's, Gaenslen's, compression and distraction exam Neurological: Speech clear, no gross sensory deficit PROCEDURE INFORMATION: Exam: MR Pelvis Without Contrast Exam date and time: 09/07/2022 3:40 PM Age: 42 years old Clinical indication: Hip pain; Bilateral; Additional info: Cristofer. Hip pain. Lbp with bilateral hip pain. Pain worse on right side. X 6-7 months TECHNIQUE: Imaging protocol: Magnetic resonance imaging of the pelvis without contrast. COMPARISON: CT ABDOMEN PELVIS WO CON 06/04/2021 8:34 AM FINDINGS: Intraperitoneal space: No free fluid. Uri
== END | disposition home or self-care (01) ==
PROVIDERS: PCP Physician Assistant; Visit Provider Nurse Practitioner Family
DX: M51.16 Intervertebral disc disorders with radiculopathy, lumbar region (principal); M54.12 Radiculopathy, cervical region; M46.1 Sacroiliitis, not elsewhere classified; M25.551 Pain in right hip; M25.552 Pain in left hip
CPT/HCPCS: 99212; G0463

== ENCOUNTER 2022-10-04 15:20 | Day surgery (SDC) | payer OTHER, SELFPAY ==
[2022-10-04 15:22] VITALS: BP 134/82; PULSE 110; RESP 20; O2SAT 100; BMI 36.6
[2022-10-04 15:31] VITALS: BP 143/91; PULSE 116; RESP 18; O2SAT 97
[2022-10-04 15:36] VITALS: BP 143/91; PULSE 116; RESP 18; O2SAT 97
--- NOTE | 2022-10-04 15:40 | EXP.PAIN.PRO ---
Procedure Date: 10/04/22 Time: 15:30 Anesthesiologist:: Denis Hare CRNA Complications:: None Pre-procedure Diagnosis:: Right sacroiliitis Post-procedure Diagnosis:: Same Indications for Procedure:: This patient is a very pleasant 42-year-old female who presents today for right sacroiliac joint radiofrequency ablation. Patient has had the left side done 3 weeks ago. She reports 70% improvement terms of the left posterior hip pain. Procedure Details:: Details of the procedure were explained to the patient.? The patient taken the procedure room placed in the prone position on the fluoroscopy table.? The area over the right lumbar spine was cleaned using chlorhexidine as a cleansing solution.? Using fluoroscopy guidance for markers were placed over the lower one third of the right sacroiliac joint.? The skin and subcutaneous tissue was anesthetized using 1% lidocaine and 25-gauge needle.? At this time to radiofrequency ablation needles were inserted and placed 1 cm medial to the lower one third sacroiliac joint.? After negative motor stimulation 3 cc of 1% lidocaine and 20 mg of Depo-Medrol was injected at each site.? At this time the RFA was carried out at 80 ?C for 2 minutes.? Both needles were then adjusted 1 cm superiorly.? 3 cc of 1% lidocaine and 20 mg of Depo-Medrol was injected again at each site.? The RFA was then carried out for 2 minutes at 80 ?C.? Patient tolerated procedure without difficulty.? There are no complications. Plan and Disposition:: Patient was discharged without incident
[2022-10-04 15:45] VITALS: BP 135/74; PULSE 108; RESP 20
== END 2022-10-04 15:45 | disposition home or self-care (01) ==
PROVIDERS: PCP Physician Assistant; Visit Provider Nurse Anesthetist, Certified Registered
DX: M46.1 Sacroiliitis, not elsewhere classified (principal)
CPT/HCPCS: 64625; J1040

== ENCOUNTER → 2022-10-05 14:14 | Outpatient (CLI) | payer OTHER, SELFPAY ==
--- NOTE | 2022-10-05 14:18 | MR_ITS ---
FINAL REPORT CLINICAL HISTORY: MID BACK PAIN f/u cyst COMPARISON: 07/28/2022 FINDINGS: Multiplanar MR imaging of the thoracic spine was performed without contrast. On the sagittal T2-weighted images, no significant disc degeneration is identified. There is mild increased signal in superior endplate of T11, unchanged. There is a 16 mm ovoid cystic focus in the left paraspinous region the which is entirely stable, likely benign. Finding is best seen on image 16 of series 8. IMPRESSION: Stable cystic focus in the left paraspinous region. Reviewed, Interpreted and Dictated by José Luis Muñiz MD Transcribed by Ro Ochoa Authenticated and [facility]
== END ==
PROVIDERS: PCP Physician Assistant; Visit Provider Nurse Practitioner Family
DX: M54.6 Pain in thoracic spine (principal)
CPT/HCPCS: 72146

== ENCOUNTER → 2022-10-11 10:46 | Outpatient (CLI) | payer OTHER, SELFPAY ==
--- NOTE | 2022-10-11 10:46 | US_ITS ---
FINAL REPORT CLINICAL HISTORY: right lower quadrant pain FINDINGS: Transvaginal sonographic images of the pelvis were obtained. The uterus is surgically absent. The right ovary measures 2.2 cm with a 1.2 cm cyst. The left ovary measures 2.3 cm with a 1.5 cm cyst. No free fluid is identified. IMPRESSION: Bilateral ovarian cysts. Reviewed, Interpreted and Dictated by Maurice Mcdaniel III, MD Transcribed by Ro Ochoa Authenticated and [facility]
== END ==
PROVIDERS: PCP Physician Assistant; Visit Provider Obstetrics & Gynecology
DX: R10.31 Right lower quadrant pain (principal)
CPT/HCPCS: 76830

== ENCOUNTER → 2022-10-24 09:23 | Outpatient (POV) | payer OTHER, SELFPAY ==
[2022-10-24 09:31] VITALS: BP 161/95; PULSE 99; RESP 20; O2SAT 97; BMI 36.6
--- NOTE | 2022-10-24 11:41 | EXP.PAIN.SOA ---
[facility] Pain Management SOAP Note Subjective:: Patient is a pleasant 42-year-old female who presents today for follow-up after a right SI RFA on 10/04/2022. Patient is current being treated for sacroiliitis, degenerative disc disease of the cervical and lumbar spine with cervical and lumbar radiculopathy symptoms, bilateral hip pain. After the procedure, patient states that she had around 70% relief on her pain relief. She has been able to increase her activity since the injection. She continues to have pain in her neck and low back. She did see NSx who deemed her a non-surgical candidate. We have tried multiple rounds of epidural injections that all provided significant but temporary relief. She has done PT that aggravated her symptoms. She is not interested in repeating PT. She wants to move forward with intrathecal pain pump. Rates her pain today as 8/10. Amari [id number], MEQ 15. She does have a cyst on her back that is stable. Per NSx, cyst is not growing. Recommending no surgery. Review of Systems: General: No recent weight changes, no fever, no sleep disturbances Respiratory: No cough, no shortness of air, no recurring pulmonary infections Cardiovascular/peripheral vascular: No chest pain, no palpitations, no edema, no shortness of breath Gastrointestinal: No new onset incontinence, normal bowel movements reported Genitourinary: No new onset incontinence Musculoskeletal: Neck pain, low back pain, hip pain Psychiatric: [Normal mood/affect] Neurological: [Denies weakness in extremities], [denies balance issues] Objective:: Physical Exam: General: Alert and oriented x3, no acute distress, pleasant and cooperative Lungs: Respirations even and unlabored, symmetrical chest expansion Eyes: PERRL Musculoskeletal: Flexion and extension of lumbar [spine] somewhat guarded secondary to pain, [antalgic gait noted]; Neurological: Speech clear, no gross sensory deficit Assessment:: Sacroiliitis, greater trochanteric bursitis, degenerative disc disease of the cervical and lumbar spine with cervical and lumbar radiculopathy symptoms, s/p catia TKA, hip pain Plan:: We have exhausted all conservative therapies for the patient. NSx has deemed her a non-surgical candidate. I have discussed intrathecal pain pump therapy in detail with the patient. She is interested in moving forward with this. We will refer the patient for psych eval. Follow up after psych eval. Will continue tramadol 50mg TID and tizanidine. Will provide 1 month fo refill. Patient has a surgical hx of bilateral TKA, gastric bypass. She also has Chavez's esophagus. For some reason, she continues to have pain in her joints. She has almost lost all her cartilages in her hips as well and may need hip replacement at the age of 42. Her rheumatology labs from April 2022 were negative. No family hx of joint or cartilage disease. I discussed with the patient that she may have some nutritional deficiencies from having a gastric bypass. She may need to follow up with GI. Patient has been instructed to contact the clinic with any concerns before the next appointment. Dr. Jimenez has reviewed this note and agrees with this plan of care. This note was dictated using voice recognition software and make contain errors or omissions. [facility] Disclaimer: The information contained in this section may have been updated after the patient was seen, as this information can be updated by other users. Medical History (Updated 10/24/22 @ 11:24 by Sandra Shen APRN) Barretts esophagus Body mass index (BMI) of 40.1 to 44.9 in adult Constipation Hypertension Morbid obesity Neuropathic pain RLQ abdominal pain Surgical History History of appendectomy History of bilateral knee replacement History of cholecystectomy History of hysterectomy including cervix Hx of gastric bypass Hx of tubal ligation Family History (Reviewed 09/20/22 @ 11:06 by Ml Gomes
== END | disposition home or self-care (01) ==
PROVIDERS: PCP Physician Assistant; Visit Provider Nurse Anesthetist, Certified Registered
DX: M51.16 Intervertebral disc disorders with radiculopathy, lumbar region (principal); M50.10 Cervical disc disorder with radiculopathy, unspecified cervical region; M70.60 Trochanteric bursitis, unspecified hip; M46.1 Sacroiliitis, not elsewhere classified; M25.559 Pain in unspecified hip
CPT/HCPCS: 99212; G0463

== ENCOUNTER 2022-10-24 09:46 | Emergency (ER) | payer OTHER, SELFPAY ==
[2022-10-24 10:30] VITALS: BP 148/94; PULSE 92; RESP 20; TEMP 36.6; O2SAT 99; BMI 37.4
[2022-10-24 10:47] LABS: UTC Influenza A Antigen Negative (Negative); UTC Influenza B Antigen Negative (Negative)
--- NOTE | 2022-10-24 11:14 | EXP.UTC ---
Discharge Plan Disposition Patient Disposition: Home, Self-Care Condition: Good Prescriptions Prescriptions: New azithromycin [Zithromax Z-Donald] 250 mg tablet See Rx Instructions .ROUTE .COMPLEX 5 Days Qty: 6 0RF Rx Instructions: For 250 mg dose pack: take 500 mg today (day 1), then 250 mg for 4 days (days 2-5) methylprednisolone [Medrol (Donald)] 4 mg tablets,dose pack See Rx Instructions .Route .COMPLEX 6 Days Qty: 21 0RF Rx Instructions: taper pack; polymyxin B sulf-trimethoprim [Polytrim] 10,000 unit- 1 mg/mL drops 2 drp ophthalmic (eye) Q6H 7 Days Qty: 10 0RF Rx Instructions: both eyes while awake; do not exceed 6 doses in 24 hours No Action cholecalciferol (vitamin D3) 50 mcg (2,000 unit) capsule 50 mcg PO DAILY pantoprazole 40 mg tablet,delayed release (DR/EC) 40 mg PO BID clonazepam [Klonopin] 0.5 mg tablet 0.5 mg PO HS Qty: 30 0RF Rx Instructions: administer 30 minutes before bedtime gabapentin enacarbil 600 mg tablet extended release 600 mg PO DAILY Qty: 30 2RF Rx Instructions: administer daily at approximately 5 PM with food/evening meal phentermine [Adipex-P] 37.5 mg tablet 37.5 mg PO DAILY Qty: 30 0RF Rx Instructions: must administer 30 minutes before or 1-2 hours after breakfast cetirizine 10 mg tablet See Rx Instructions .ROUTE .COMPLEX Rx Instructions: TAKE 1 TABLET BY MOUTH ONCE DAILY NEEDED FOR ALLERGY SYMPTOMS fluticasone propionate 120 SPR/BOT bottle 1 spr NS DAILY Rx Instructions: each nostril daily linaclotide 145 MCG capsule 145 mcg PO DAILY Rx Instructions: TAKE 1 CAPSULE BY MOUTH ONCE DAILY hydrochlorothiazide 25 MG tablet 25 mg PO DAILY Rx Instructions: TAKE 1 TABLET BY MOUTH EVERY MORNING ferrous sulfate [FeroSul] 325 mg (65 mg iron) tablet See Rx Instructions .ROUTE .COMPLEX Rx Instructions: TAKE 1 TABLET BY MOUTH TWICE DAILY WITH FOOD montelukast 10 mg tablet See Rx Instructions .ROUTE .COMPLEX Rx Instructions: TAKE 1 TABLET BY MOUTH ONCE DAILY tizanidine 4 mg tablet 4 mg PO TID Qty: 90 0RF tramadol 50 mg tablet 50 mg PO TID Qty: 90 0RF Referrals Follow up/Referrals: Sarita Gómez PA [Primary Care Provider] - See instructions Activity Restrictions/Add. Instructions Additional Instructions/Restrictions: *Monitor Temp, Over the counter Motrin or Tylenol as directed/as needed Tylenol every 4 hours and Motrin every 6 hours (as long as your family doctor has told you that you can take it) for fever or pain. and straight to ER if unable to lower temp less than 101.0 after medication given *Warm salt water gargles may help to soothe the throat *Throat Lozenges? *Warm fluids like tea with honey may help to soothe the throat? *Sleep elevated *Humidifier/Vaporizer Wash hands before and after applying eye drops Follow up IMMEDIATELY for new or worsening symptoms or no Noticeable improvement over the next 48-72 hours. 911 for difficulty breathing or swallowing Clinical Impressions Clinical Impression: Conjunctivitis Instructions Patient Instructions: DI for Conjunctivitis, Conjunctivitis, Middle Ear Infection Discharge ED Provider: Sandra Shen [facility] General Stated complaint: Both eyes redness, Fever,Cough Mode of Arrival: Ambulatory Source of Information: Patient Limitations: No Limitations Time Seen by Provider: 10/24/22 11:15 Description of Symptoms (Recalled from Triage Doc. by RN): PATIENT C/O REDNESS AND DRAINAGE TO LEFT EYE, FEVER, COUGH, HEADACHE AND BODY ACHES X 1 WEEK. SHE STATES HER SON HAD FLU AND PINK EYE LAST WEEK HEENT Symptoms (Recalled from RN notes): Yes Resp Symptoms (Recalled from RN notes): Yes Skin Symptoms (Recalled from RN notes): No MS Symptoms (Recalled from RN notes): No Functional Status (Recalled from RN notes): WNL History of Present Il
[2022-10-24 11:35] VITALS: BP 148/94; PULSE 92; RESP 20; TEMP 36.6; O2SAT 99
== END 2022-10-24 11:37 | disposition home or self-care (01) ==
PROVIDERS: Emergency Provider Nurse Practitioner; PCP Physician Assistant
DX: H10.9 Unspecified conjunctivitis (principal)
CPT/HCPCS: 87804; 99212; G0463

== ENCOUNTER 2022-11-22 07:23 | Emergency (ER) | payer OTHER, SELFPAY ==
[2022-11-22 07:43] VITALS: BMI 36.6
--- NOTE | 2022-11-22 07:45 | CT_ITS ---
FINAL REPORT TECHNIQUE: Thin section axial images were obtained from the lung bases to the pubic symphysis without IV contrast. Coronal reconstruction images were obtained from the axial data. Exam was performed using dose reduction technique. CLINICAL HISTORY: stone protocol COMPARISON: June 04, 2021 FINDINGS: There are no renal or ureteral stones. There is no hydronephrosis or perinephric stranding. There are postoperative changes from cholecystectomy. 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 The remaining unenhanced solid abdominal organs are unremarkable. There are postoperative changes from gastric bypass. There is no evidence of small bowel obstruction or internal hernia. The appendix is likely absent. GI tract is without acute abnormality. The uterus is surgically absent. There is no lymphadenopathy or ascites. No acute osseous abnormality is identified. IMPRESSION: No renal or ureteral stones. No hydronephrosis. No acute abnormality on this unenhanced exam. Reviewed, Interpreted and Dictated by Kassandra Ag MD Transcribed by Yue Tompkins Authenticated and [facility]
[2022-11-22 07:46] VITALS: BP 132/89; PULSE 118; RESP 20; TEMP 36.8; O2SAT 100; BMI 80.6
[2022-11-22 07:57] LABS: Microscopic, Urine URINE MICROSCOPIC (MICROSCOPIC)
[2022-11-22 07:58] LABS: Appearance,Urine CLEAR (Clear); Bilirubin,Urine Negative (Negative); Blood, Urine Negative (Negative); Color,Urine YELLOW (Yellow); Glucose,Urine (UA) Negative (Negative); Ketones,Urine Negative (Negative); Leukocyte Esterase,Urine Negative (Negative); Nitrate,Urine Negative (Negative); Protein,Urine Negative (Negative)
--- NOTE | 2022-11-22 07:59 | HMH.EDGENADL ---
Discharge Plan Disposition Patient Disposition: Home, Self-Care Condition: Good Prescriptions Prescriptions: No Action cholecalciferol (vitamin D3) 50 mcg (2,000 unit) capsule 50 mcg PO DAILY pantoprazole 40 mg tablet,delayed release (DR/EC) 40 mg PO BID ferrous sulfate [FeroSul] 325 mg (65 mg iron) tablet See Rx Instructions .ROUTE .COMPLEX Qty: 60 0RF Dose Instruction: TAKE 1 TABLET BY MOUTH TWICE DAILY WITH FOOD Rx Instructions: TAKE 1 TABLET BY MOUTH TWICE DAILY WITH FOOD Linzess 145 mcg capsule See Rx Instructions .ROUTE .COMPLEX Qty: 30 2RF Dose Instruction: TAKE 1 CAPSULE BY MOUTH ONCE DAILY Rx Instructions: TAKE 1 CAPSULE BY MOUTH ONCE DAILY gabapentin enacarbil 600 mg tablet extended release 600 mg PO DAILY Qty: 30 2RF Rx Instructions: administer daily at approximately 5 PM with food/evening meal clonazepam [Klonopin] 0.5 mg tablet 0.5 mg PO HS Qty: 30 0RF Rx Instructions: administer 30 minutes before bedtime phentermine [Adipex-P] 37.5 mg tablet 37.5 mg PO DAILY Qty: 30 0RF Rx Instructions: must administer 30 minutes before or 1-2 hours after breakfast cetirizine 10 mg tablet See Rx Instructions .ROUTE .COMPLEX Rx Instructions: TAKE 1 TABLET BY MOUTH ONCE DAILY NEEDED FOR ALLERGY SYMPTOMS fluticasone propionate 120 SPR/BOT bottle 1 spr NS DAILY Rx Instructions: each nostril daily hydrochlorothiazide 25 MG tablet 25 mg PO DAILY Rx Instructions: TAKE 1 TABLET BY MOUTH EVERY MORNING montelukast 10 mg tablet See Rx Instructions .ROUTE .COMPLEX Rx Instructions: TAKE 1 TABLET BY MOUTH ONCE DAILY tizanidine 4 mg tablet 4 mg PO TID Qty: 90 2RF tramadol 50 mg tablet 50 mg PO TID Qty: 90 2RF Referrals Follow up/Referrals: Sarita Gómez PA [Primary Care Provider] - See instructions Activity Restrictions/Add. Instructions Additional Instructions/Restrictions: You were evaluated in the emergency department today for flank pain. Please make sure that you stay orally hydrated at home. Take Tylenol and ibuprofen as needed for pain. Return to the emergency department for any new or worsening symptoms. Follow-up with your primary care provider over the next 48 hours Clinical Impressions Clinical Impression: Bilateral flank pain Instructions Patient Instructions: DI for Acute Abdominal Pain, DI for Flank Pain Discharge ED Provider: Yolie Leos General Adult HPI General Chief complaint: Abdominal Pain Stated complaint: back pain, no accident Time Seen by Provider: 11/22/22 07:55 Mode of Arrival: Ambulatory Source of Information: Patient and Medical Record Limitations: No Limitations Description of Symptoms (Recalled from ER Triage Doc. by RN): Pt reports bilateral flank pain R > L, with radiation to right flank and low back onset 11/19-11/21 and hematuria, dysuria, feels like another kidney stone , pmhx of previous renal calculi and reports c-scope 11/21 for anemia vs melena workup History of Present Illness HPI narrative: This patient is a 42-year-old female with a history of kidney stones, hypertension, Chavez's esophagus, and chronic back pain presented to the emergency department for evaluation with concern for bilateral flank pain. She reports that she initially had left flank pain 11/16, and she believes that she passed a kidney stone after onset of this. She also states that she felt that she passed another kidney stone on 11/19. She dates that after that, she was feeling better, but now she has developed bilateral flank pain that is worsened since yesterday. The pain radiates to her groin. Nothing seems to make it better or worse. She notes that she did have a colonoscopy yesterday for anemia/melena work-up. She states that she has been passing gas and having normal bowel movements since then. She admits to chills and nausea, but no fevers or v
[2022-11-22 08:01] LABS: Bacteria,Urine Trace /lpf; WBC,Urine Occasional #/hpf (0-3)
[2022-11-22 08:03] LABS: Basophils # 0.1 K/mm3 (0-0.2); Basophils % 1.1 % (0.1-2.0); Eosinophils # 0.2 K/mm3 (0.0-0.4); Eosinophils % 2.8 % (0.1-12.0); Hematocrit 41.5 % (37.0-47.0); Hemoglobin 14.1 g/dL (12.2-16.2); Lymphocytes # 2.9 K/mm3 (0.7-4.5); Mean Corpuscular HGB Conc 33.9 g/dL (31.8-35.4); Mean Corpuscular Hemoglobin 30.5 pg (27.0-31.2); Mean Platelet Volume 8.4 fl (7.4-10.4); Monocytes # 0.4 K/mm3 (0.1-1.0); Monocytes % 4.6 % (1.7-9.3); Neutrophils # 4.3 K/mm3 (1.8-7.8); Neutrophils % 54.5 % (37.0-80.0); Platelet Count 442 K/mm3 (142-424); Red Blood Count 4.61 M/mm3 (4.20-5.40); Red Cell Distribution Width 12.8 % (11.5-17.5); White Blood Count 7.9 K/mm3 (4.8-10.8)
[2022-11-22 08:06] LABS: Chloride 101 mmol/L (98-107); Potassium 3.1 mmoL/L (3.5-5.1); Sodium 143 mmol/L (136-145)
[2022-11-22 08:09] LABS: Alanine Aminotransferase 17 U/L (12-78); Albumin Level 4.5 g/dl (3.5-5.0); Albumin/Globulin Ratio 1.4 (1.1-1.8); Alkaline Phosphatase 104 U/L (38-126); Anion Gap 13.1 mEq/L (5-15); Aspartate Amino Transferase 28 U/L (14-36); Bilirubin,Total 0.6 mg/dl (0.2-1.3); Blood Urea Nitrogen 8 mg/dl (7-17); Calcium 8.7 mg/dl (8.4-10.2); Carbon Dioxide 32 mmol/L (22.0-30.0); Creatinine Clearance Estimated 84 mL/min (50-200); Estimated Glomerular Filt Rate 79 ml/min (>60); GFR (African American) 96 ML/MIN (>60); Globulin 3.3 g/dL (1.3-3.2); Glucose 94 mg/dl (74-100); Total Protein,Serum 7.8 g/dl (6.3-8.2)
[2022-11-22 08:37] VITALS: BP 116/74; PULSE 89; RESP 18; O2SAT 100
[2022-11-22 08:52] LABS: Urine Pregnancy, HCG Qual. Negative (Negative)
[2022-11-22 09:00] VITALS: BP 111/72; PULSE 80; O2SAT 99
[2022-11-22 09:46] VITALS: BP 109/67; PULSE 92; RESP 12; TEMP 36.7; O2SAT 100
== END 2022-11-22 09:49 | disposition home or self-care (01) ==
PROVIDERS: Emergency Provider Emergency Medicine; PCP Physician Assistant
DX: R10.9 Unspecified abdominal pain (principal); M54.50 Low back pain, unspecified; I10 Essential (primary) hypertension; K22.70 Barrett's esophagus without dysplasia; G89.29 Other chronic pain; K59.00 Constipation, unspecified; G62.9 Polyneuropathy, unspecified; Z90.49 Acquired absence of other specified parts of digestive tract; Z96.653 Presence of artificial knee joint, bilateral; Z98.84 Bariatric surgery status; Z90.710 Acquired absence of both cervix and uterus; Z82.49 Family history of ischemic heart disease and other diseases of the circulatory system; Z80.9 Family history of malignant neoplasm, unspecified; Z98.51 Tubal ligation status
CPT/HCPCS: 74176; 80053; 81001; 81025; 85025; 96361; 96374; 96375; 99285; J2405

== ENCOUNTER → 2022-12-08 13:03 | Outpatient (CLI) | payer OTHER, SELFPAY ==
--- NOTE | 2022-12-08 13:04 | US_ITS ---
FINAL REPORT CLINICAL HISTORY: ovarian cyst- 6 week follow up COMPARISON: 10/11/2022 FINDINGS: Transvaginal sonographic images of the pelvis were obtained. The uterus is not seen which is consistent with history of hysterectomy. The right ovary measures 2.8 cm in length with a 2.3 cm cyst. The left ovary measures 3.8 cm in length with a 2.0 cm cyst. Normal blood flow seen to the ovaries. There is no evidence of free fluid. IMPRESSION: Bilateral ovarian cysts, somewhat larger. Consider additional follow-up in 6-8 weeks. Reviewed, Interpreted and Dictated by Maurice Mcdaniel III, MD Transcribed by Yue Tompkins Authenticated and [facility]
== END ==
PROVIDERS: PCP Physician Assistant; Visit Provider Obstetrics & Gynecology
DX: N83.209 Unspecified ovarian cyst, unspecified side (principal)
CPT/HCPCS: 76830

== ENCOUNTER 2022-12-30 10:06 | Day surgery (SDC) | payer OTHER, SELFPAY ==
[2022-12-30] VITALS (7 sets, daily range): BP systolic 116–150; BP diastolic 77–96; PULSE 95–110; RESP 18–20; TEMP 36.6; O2SAT 98–100; BMI 36.6
--- NOTE | 2022-12-30 14:01 | PC.NURSE ---
1330-pt returned to bay accompanied by nursing staff. VSS, no c/o pain. lumbar dressing c/d/i. no needs or concerns at this time. 1345-pt resting in chair. VSS, no c/o pain. lumbar dressing c/d/i. pt c/o itching. medicated per prn order. no other c/o or needs at this time. 1400-pt resting in chair. VSS, no c/o pain. lumbar dressing c/d/i. no needs or concerns at this time
--- NOTE | 2022-12-30 14:07 | PC.NURSE ---
1345-MD at bedside
--- NOTE | 2022-12-30 14:15 | PC.NURSE ---
1410-pt ambulated to nurses station. no c/o pain. gait steady.
--- NOTE | 2022-12-30 15:42 | EXP.PAIN.PRO ---
Procedure Date: 12/30/22 Time: 15:42 Anesthesiologist:: Suraj Jimenez MD Complications:: None Pre-procedure Diagnosis:: Degenerative disease of lumbar spine with lumbar radiculopathy symptoms Post-procedure Diagnosis:: Same Indications for Procedure:: This patient is a pleasant 42-year-old white female who we are treating for low back pain and right hip pain with sacroiliitis and degenerative disc disease of lumbar spine with lumbar radiculopathy symptoms. She has failed all previous conservative treatments including injections, oral medications, SI joint RFA. She has increasing pain in her low back over both hips and down both legs. She has a successful psychological evaluation. She presents for intrathecal pump trial today. Procedure Details:: Informed consent was obtained the risk and benefits of the procedure were explained to the patient. The patient was taken the operating room placed prone on the procedure table. She was prepped and draped in sterile fashion. C-arm fluoroscopy was used to view the lumbar spine. The skin and subcutaneous tissues were anesthetized using lidocaine. A 17-gauge spinal needle was inserted and advanced into the L4-L5 interspace. After obtaining clear CSF intrathecal catheter was inserted and advanced very easily to the T10 vertebral body. We were able to freely withdraw clear CSF through the catheter. We then did a single shot bolus of intrathecal opioid 25 mcg followed by saline and followed by the previous CSF that was withdrawn. The needle and catheter were removed. The patient was taken recovery in stable condition. Approximately 30 minutes after the procedure patient was observed she had no pain she was 90 to 100% better. Pain score was a 1 out of 10. She was much more functional. She was able to stand longer and walk better. She does have some itching. Other than this she is doing very well all indications pointed to a successful intrathecal pump trial. Patient was discharged home neurologic intact with good relief of pain symptoms. Plan and Disposition:: Plan and disposition: We will follow-up with this patient in the clinic. This seems to be a successful intrathecal pump trial. We will plan on permanent placement of intrathecal morphine 1 mg/mL to start at 0.1 mg/day. Catheter tip will be the T8 vertebral body.
== END 2022-12-30 14:30 | disposition home or self-care (01) ==
PROVIDERS: PCP Physician Assistant; Visit Provider Anesthesiology
DX: M51.16 Intervertebral disc disorders with radiculopathy, lumbar region (principal); M46.1 Sacroiliitis, not elsewhere classified
CPT/HCPCS: 62323; 96365

== ENCOUNTER 2023-01-02 08:52 | Emergency (ER) | payer OTHER, SELFPAY ==
[2023-01-02] VITALS (7 sets, daily range): BP systolic 115–138; BP diastolic 78–91; PULSE 80–111; RESP 12–18; TEMP 36.4–36.8; O2SAT 94–100; BMI 36.6
--- NOTE | 2023-01-02 08:52 | ECG_ITS ---
APPROVED REPORT Exam: Resting ECG HR:109 bpm ECG Measurements Heart Rate 109 AXES IA 135 P 63 QRSd 90 QRS 83 QT 328 T 38 QTc 392 Conclusion SINUS TACHYCARDIA NONSPECIFIC T-WAVE ABNORMALITY ABNORMAL RHYTHM ECG UNCONFIRMED REPORT Electronically signed by : Michael Campo MD 01/03/2023 20:31:34
--- NOTE | 2023-01-02 08:58 | HMH.EDGENADL ---
Discharge Plan Disposition Patient Disposition: Home, Self-Care Condition: Good Prescriptions Prescriptions: New oxycodone-acetaminophen [Percocet] 5-325 mg tablet 1 tab PO QID PRN (Reason: pain) Qty: 7 0RF No Action cholecalciferol (vitamin D3) 50 mcg (2,000 unit) capsule 50 mcg PO DAILY pantoprazole 40 mg tablet,delayed release (DR/EC) 40 mg PO BID phentermine [Adipex-P] 37.5 mg tablet 37.5 mg PO DAILY Qty: 30 0RF Rx Instructions: must administer 30 minutes before or 1-2 hours after breakfast acetaminophen-codeine 300-30 mg tablet 1 tab PO Q8H PRN (Reason: pain) Qty: 30 0RF gabapentin enacarbil 600 mg tablet extended release 600 mg PO DAILY Qty: 30 2RF Rx Instructions: administer daily at approximately 5 PM with food/evening meal clonazepam [Klonopin] 0.5 mg tablet 0.5 mg PO HS Qty: 30 0RF Rx Instructions: administer 30 minutes before bedtime cetirizine 10 mg tablet See Rx Instructions .ROUTE .COMPLEX Rx Instructions: TAKE 1 TABLET BY MOUTH ONCE DAILY NEEDED FOR ALLERGY SYMPTOMS ferrous sulfate [FeroSul] 325 mg (65 mg iron) tablet See Rx Instructions .ROUTE .COMPLEX Rx Instructions: TAKE 1 TABLET BY MOUTH TWICE DAILY WITH FOOD Linzess 145 mcg capsule See Rx Instructions .ROUTE .COMPLEX Rx Instructions: TAKE 1 CAPSULE BY MOUTH ONCE DAILY sulfamethoxazole-trimethoprim [Bactrim DS] 800-160 mg tablet 1 tab PO BID Qty: 14 0RF fluticasone propionate 120 SPR/BOT bottle 1 spr NS DAILY Rx Instructions: each nostril daily hydrochlorothiazide 25 MG tablet 25 mg PO DAILY Rx Instructions: TAKE 1 TABLET BY MOUTH EVERY MORNING montelukast 10 mg tablet See Rx Instructions .ROUTE .COMPLEX Rx Instructions: TAKE 1 TABLET BY MOUTH ONCE DAILY tizanidine 4 mg tablet 4 mg PO TID Qty: 90 2RF tramadol 50 mg tablet 50 mg PO TID Qty: 90 2RF Referrals Follow up/Referrals: Sarita Gómez PA [Primary Care Provider] - See instructions Clinical Impressions Clinical Impression: Acute chest wall pain Discharge ED Provider: Philip Virk General Adult [facility] General Chief complaint: Chest Pain Stated complaint: chest pain Time Seen by Provider: 01/02/23 08:58 History of Present Illness HPI narrative: Patient presents complaint of right-sided chest discomfort that began this past Monday. On Monday she did receive injections in her lower back of fentanyl for chronic back pain. With respect to her chest discomfort she describes it as moderate to severe and worse with deep breaths and positional changes and she notes associated shortness of air. Denies fever or productive cough. Related Data Home Medications Medication Instructions Recorded Confirmed cholecalciferol (vitamin D3) 50 50 mcg PO DAILY Supplement 11/24/21 12/30/22 mcg (2,000 unit) capsule fluticasone propionate 50 1 spr intranasal DAILY Allergy 01/03/22 12/30/22 mcg/actuation nasal symptoms spray,suspension hydrochlorothiazide 25 mg tablet 25 mg PO DAILY bp 06/28/22 12/30/22 montelukast 10 mg tablet See Rx Instructions .Route 08/08/22 12/30/22 .COMPLEX ALLERGIES cetirizine 10 mg tablet See Rx Instructions .Route 08/16/22 12/30/22 .COMPLEX . pantoprazole 40 mg tablet,delayed 40 mg PO BID GERD 08/16/22 12/30/22 release ferrous sulfate 325 mg (65 mg See Rx Instructions .Route 12/30/22 12/30/22 iron) tablet (FeroSul) .COMPLEX SUPPLIMENT linaclotide 145 mcg capsule See Rx Instructions .Route 12/30/22 12/30/22 (Linzess) .COMPLEX bowels Previous Rx's Medication Instructions Recorded tizanidine 4 mg tablet 4 mg PO TID . #90 tabs 10/25/22 tramadol 50 mg tablet 50 mg PO TID . #90 tabs 10/25/22 gabapentin enacarbil 600 mg 600 mg PO DAILY Pain #30 tabs 10/26/22 tablet,extended release acetaminophen 300 mg-codeine 30 mg 1 tab PO Q8H PRN pain #30 tabs 12/08/22 tablet clonazepam 0.5 mg tabl
--- NOTE | 2023-01-02 09:01 | XR_ITS ---
FINAL REPORT CLINICAL HISTORY: Short of air FINDINGS: A portable view of the chest is obtained. Cardiac and mediastinal silhouettes are normal. The lungs are clear. There is no pleural effusion or pneumothorax. IMPRESSION: No acute process on this portable exam. Reviewed, Interpreted and Dictated by Kassandra Ag MD Transcribed by Yue Tompkins Authenticated and [facility]
--- NOTE | 2023-01-02 09:19 | PC.NURSE ---
portable xray at bedside
[2023-01-02 09:29] LABS: Basophils # 0.1 K/mm3 (0-0.2); Basophils % 0.6 % (0.1-2.0); Eosinophils # 0.3 K/mm3 (0.0-0.4); Eosinophils % 2.7 % (0.1-12.0); Hematocrit 39.5 % (37.0-47.0); Hemoglobin 13.4 g/dL (12.2-16.2); Lymphocytes # 2.3 K/mm3 (0.7-4.5); Lymphocytes % 22.3 % (10-50); Mean Corpuscular HGB Conc 33.9 g/dL (31.8-35.4); Mean Corpuscular Hemoglobin 30.7 pg (27.0-31.2); Mean Corpuscular Volume 90.3 fl (81-99); Mean Platelet Volume 8.6 fl (7.4-10.4); Monocytes # 0.5 K/mm3 (0.1-1.0); Monocytes % 5.1 % (1.7-9.3); Neutrophils # 7.2 K/mm3 (1.8-7.8); Neutrophils % 69.3 % (37.0-80.0); Platelet Count 378 K/mm3 (142-424); Red Blood Count 4.38 M/mm3 (4.20-5.40); Red Cell Distribution Width 12.6 % (11.5-17.5); White Blood Count 10.4 K/mm3 (4.8-10.8)
[2023-01-02 09:36] LABS: INR 0.91 (0.9-1.1); Prothrombin Time 9.9 seconds (10.1-12.5)
[2023-01-02 09:37] LABS: Alanine Aminotransferase 19 U/L (12-78); Albumin Level 4.5 g/dl (3.5-5.0); Albumin/Globulin Ratio 1.7 (1.1-1.8); Alkaline Phosphatase 98 U/L (38-126); Anion Gap 7.1 mEq/L (5-15); Aspartate Amino Transferase 25 U/L (14-36); Bilirubin,Total 0.6 mg/dl (0.2-1.3); Blood Urea Nitrogen 18 mg/dl (7-17); Calcium 9.1 mg/dl (8.4-10.2); Carbon Dioxide 30 mmol/L (22.0-30.0); Chloride 105 mmol/L (98-107); Creatinine Clearance Estimated 168 mL/min (50-200); Estimated Glomerular Filt Rate 93 ml/min (>60); GFR (African American) 112 ML/MIN (>60); Globulin 2.6 g/dL (1.3-3.2); Glucose 70 mg/dl (74-100); Potassium 4.1 mmoL/L (3.5-5.1); Sodium 138 mmol/L (136-145); Total Protein,Serum 7.1 g/dl (6.3-8.2)
[2023-01-02 09:43] LABS: D-Dimer 0.72 ug/mL (0.0-0.5)
[2023-01-02 09:50] LABS: HCG Qualitative, Serum Negative (Negative)
[2023-01-02 09:51] LABS: Troponin I < 0.01 ng/ml (0.00-0.034)
--- NOTE | 2023-01-02 10:05 | CT_ITS ---
FINAL REPORT TECHNIQUE: Axial imaging of the chest is obtained after the administration of contrast. 3-D MIP reformatted images were also obtained and reviewed per PE protocol. This study was performed with techniques to keep radiation doses as low as reasonably achievable (ALARA). Individualized dose reduction techniques using automated exposure control or adjustment of mA and/or kV according to the patient's size were employed. CLINICAL HISTORY: soa and chest pain FINDINGS: The pulmonary arteries are well filled. There is no evidence of pulmonary embolus. There is no aortic dissection or intimal flap. There is no mediastinal, hilar, or axillary lymphadenopathy. There is a small nodule seen along the right minor fissure likely relate to intra fissural lymph node. The lungs are clear. There is no pleural or pericardial effusion. Limited evaluation of the upper abdomen is without acute abnormality. Postoperative changes are noted to the gallbladder. There is no acute osseous abnormality. IMPRESSION: No evidence of pulmonary embolism or aortic dissection. Reviewed, Interpreted and Dictated by Kassandra Ag MD Transcribed by Lesvia Nation Authenticated and . [facility]
[2023-01-02 12:44] LABS: Troponin I < 0.01 ng/ml (0.00-0.034)
== END 2023-01-02 13:33 | disposition home or self-care (01) ==
PROVIDERS: Emergency Provider Emergency Medicine; PCP Physician Assistant
DX: R07.89 Other chest pain (principal); K22.70 Barrett's esophagus without dysplasia; K59.00 Constipation, unspecified; I10 Essential (primary) hypertension; Z90.49 Acquired absence of other specified parts of digestive tract; Z96.653 Presence of artificial knee joint, bilateral; Z98.84 Bariatric surgery status; Z80.9 Family history of malignant neoplasm, unspecified; Z83.3 Family history of diabetes mellitus; Z82.49 Family history of ischemic heart disease and other diseases of the circulatory system
CPT/HCPCS: 36415; 71045; 71275; 80053; 84484; 84703; 85025; 85378; 85610; 93005; 96374; 99285; Q9967

== ENCOUNTER → 2023-01-24 11:45 | Outpatient (CLI) | payer OTHER, SELFPAY ==
[2023-01-24 14:07] LABS: Blood Urea Nitrogen 23 mg/dl (7-17); Calcium 8.9 mg/dl (8.4-10.2); Carbon Dioxide 33 mmol/L (22.0-30.0); Chloride 98 mmol/L (98-107); Estimated Glomerular Filt Rate 93 ml/min (>60); GFR (African American) 112 ML/MIN (>60); Glucose 57 mg/dl (74-100); Magnesium 2.5 mg/dl (1.6-2.3); Sodium 136 mmol/L (136-145)
== END ==
PROVIDERS: PCP Physician Assistant; Visit Provider Physician Assistant
DX: G89.29 Other chronic pain (principal)
CPT/HCPCS: 80048; 83735

== ENCOUNTER 2023-01-27 08:13 | Day surgery (SDC) | payer OTHER, SELFPAY ==
[2023-01-26 10:13] VITALS: BMI 36.6
[2023-01-27] VITALS (11 sets, daily range): BP systolic 121–161; BP diastolic 74–101; PULSE 68–103; RESP 16–18; TEMP 36.2–43; O2SAT 95–99
--- NOTE | 2023-01-27 13:14 | P.PNANES_ITS ---
[facility] Anesthesia Record Part I Anesthesia Record I Intake, IV Amount: 450 Estimated blood loss (mL): 15 Urine output (mL): 0 Blood Products used (#): none Blood Pressure: 150/95 SaO2: 96 Pulse Rate: 98 Respiratory Rate: 16 Temperature: 97.2 F Patient is:: Drowsy and Stable Stable to PACU at:: 13:08
--- NOTE | 2023-01-27 13:30 | P.OP_ITS ---
Date of procedure: 01/27/23 Pre-op Diagnosis:: Degenerative disc disease of lumbar spine with lumbar radiculopathy symptoms Post-op Diagnosis:: Same Procedure performed:: Permanent placement intrathecal pain pump with catheter placement with tunneling and pain pump generator placement Surgeon:: Suraj Jimenez MD [employer]INT COLOR MATCHER:: Ronald Hawkins Anesthesia: MAC Estimated blood loss (mL): 5 Clinical Note:: This patient is a pleasant 42-year-old white female who we are treating for low back pain and right hip pain with sacroiliitis and degenerative disc disease of lumbar spine with lumbar radiculopathy symptoms. She has failed all previous conservative treatments including injections, oral medications, physical therapy and SI joint RFA. She is not a candidate for any surgery. She has had a successful intrathecal pump trial. She is also had a successful psychological evaluation. She presents for permanent placement of her intrathecal pain pump today. This will be with intrathecal morphine 1 mg per mill start at 0.1 mg/day. Operative findings:: None Operative note:: Informed consent was obtained risk and benefits of the procedure were explained to the patient. Patient was taken the procedure room. Patient is placed prone on the procedure table. She was prepped and draped in sterile fashion. C-arm fluoroscopy was used to view the right flank. We created the pump pocket on the right flank senior care between the 12th rib and iliac crest. Ray-Smitha's were placed in the pump pocket for hemostasis. The skin and subcutaneous tissues adjacent to the L4-5 interspace were then anesthetized using lidocaine. I made incision and dissected down to the lumbar paraspinous fascia. A 17-gauge spinal needle was inserted and advanced into the L4-5 interspace until clear CSF was obtained. After this intrathecal catheter was inserted and advanced very easily to the T8 vertebral body. Catheter position was checked in AP and lateral views and was determined to be in a posterior location. The stylette of the catheter and the needle was removed. The catheter was secured to the fascia with an anchor device and 2-0 Prolene. I prepared the pump with 20 mL of intrathecal morphine 1 mg per ml. I tunneled the catheter from the back to the pump pocket and attached catheter to the pump. We were able to freely withdraw clear CSF through the sideport. The pump was then placed in the pocket. All Ray-Smitha's were removed. Again we checked to make sure that we were able to withdraw clear CSF through the sideport. Both incisions were then closed with 2-0 Vicryl follo wed by 4-0 nylon and jamel. A wound VAC was placed over the incision. The patient was placed in an abdominal binder taken recovery in stable condition. The pump was interrogated and started at 0.1 mg/day of intrathecal morphine. Patient tolerated the procedure well with no complications. Patient was discharged home neurologic intact with good relief of pain symptoms. Plan and disposition: We will follow-up with this patient in 1 week for wound check and reprogram. We will follow-up in 2 to 3 weeks for suture and staple removal. She is having some postop pain. We did give her tramadol 50 mg 3 times a day for 5 days for postop pain. Condition: stable Disposition: PACU Complications:: None
--- NOTE | 2023-01-30 07:15 | EXP.ANES.II ---
[facility] Anesthesia Record Part II Anesthesia Record Part II Discharge Time: 13:38 Destination: Surgical Day Care (OP Surgery) PACU nurse assessment reviewed?: Yes Patient Condition:: Good Anesthesia Complications:: None Swallowing reflex intact?: Yes Cyanosis?: No Blood Pressure: 161/101 Pulse Rate: 83 Temperature: 97.2 F Mental Status: Alert & Oriented Pain level:: 8 Nausea and/or vomitting:: None Intake, IV Amount: 0
[2023-01-30 07:16] VITALS: BP 161/101; PULSE 83; TEMP 36.2
== END 2023-01-27 14:30 | disposition home or self-care (01) ==
PROVIDERS: PCP Physician Assistant; Visit Provider Anesthesiology
PROC: (CPT 62350; principal; 2023-01-27 09:30)
DX: M51.16 Intervertebral disc disorders with radiculopathy, lumbar region (principal); M46.1 Sacroiliitis, not elsewhere classified; M25.551 Pain in right hip; Z79.899 Other long term (current) drug therapy
CPT/HCPCS: 62350; 62362; 96374; C1755; C1772; J2405

== ENCOUNTER → 2023-02-03 09:38 | Outpatient (POV) | payer OTHER, SELFPAY ==
--- NOTE | 2023-02-03 09:53 | EXP.PAIN.SOA ---
[facility] Pain Management SOAP Note Subjective:: Patient is a pleasant 42-year-old female who presents today for 1 week postop of intrathecal pain pump placement on 01/27/2023. We are currently treating the patient for degenerative disc disease of cervical and lumbar spine with cervical and lumbar radiculopathy, sacroiliitis, bilateral hip pain. Today she rates her pain at a 5 out of 10. Patient states that overall she has had at least 50% improvement following the implantation of the pump compared to her pain prior. She does state that today is more incisional pain. She does describe this as a aching, tender sensation that is worse with increased activity. She does state today is the first day she is worn pants and it does appear to be rubbing over top of one of her incisions causing additional irritation. She is currently managed with morphine 1 mg/mL with a daily dose of 0.1001 mg/day. Patient denies any side effects from this medication. She had been to [facility] who deemed her a non-surgical candidate. We have tried multiple rounds of epidural injections that all provided significant but temporary relief. PT that aggravated her symptoms. Her Amari has been reviewed and is appropriate. Review of Systems: General: No recent weight changes, no fever, no sleep disturbances Respiratory: No cough, no shortness of air, no recurring pulmonary infections Cardiovascular/peripheral vascular: No chest pain, no palpitations, no edema, no shortness of breath Gastrointestinal: No new onset incontinence, normal bowel movements reported Genitourinary: No new onset incontinence Musculoskeletal: Low back pain Psychiatric: [Normal mood/affect] Neurological: [Denies weakness in extremities], [denies balance issues] Objective:: Physical Exam: General: Alert and oriented x3, no acute distress, pleasant and cooperative Lungs: Respirations even and unlabored, symmetrical chest expansion Eyes: PERRL Musculoskeletal: Flexion and extension of lumbar [spine] somewhat guarded secondary to pain, [antalgic gait noted] Neurological: Speech clear, no gross sensory deficit Incision sites clean, dry, well approximated with minimal erythema, jamel and sutures intact Assessment:: Degenerative disc disease of cervical and lumbar spine with cervical and lumbar radiculopathy symptoms, sacroiliitis, bilateral hip pain Plan:: Patient has had significant improvement following her intrathecal pain pump placement last week. Patient will return to clinic in 2 weeks with the plan to remove her sutures and jamel if indicated and apply Steri-Strips. Patient has been counseled to continue her postop restrictions and contact our office with any questions or concerns before the next appointment date. We will also plan at her next follow-up visit to adjust her pump settings. Patient has been instructed to contact the clinic with any concerns before the next appointment. Dr. Jimenez has reviewed this note and agrees with this plan of care. This note was dictated using voice recognition software and make contain errors or omissions. -- It Is medically necessary for this patient to continue to have their intrathecal pump refilled at regular intervals. This patient had an intrathecal pain pump implanted after meeting criteria of chronic intractable pain for greater than 3 months and failing conservative treatments. Patient has committed and been compliant to the treatment plan and all planned follow up care. Since implantation of the intrathecal pain pump, the patient has had decreased pain and been more functional. Oral medications have been reduced including intake of oral opioids. Patient continues to do well with intrathecal therapy with decrease in pain symptoms and increase in functional status. Stopping intrathecal medications can lead to life threatening withdrawal, seizures, cardiac arrest, severe pain, and possible . Pumps that are not refilled at regular intervals can be damages and cause and need fo
[2023-02-03 09:57] VITALS: BP 142/91; PULSE 98; RESP 18; O2SAT 98; BMI 36.6
== END ==
PROVIDERS: PCP Physician Assistant; Visit Provider Nurse Practitioner Family
DX: M51.16 Intervertebral disc disorders with radiculopathy, lumbar region (principal); M50.10 Cervical disc disorder with radiculopathy, unspecified cervical region; M46.1 Sacroiliitis, not elsewhere classified; M25.551 Pain in right hip; M25.552 Pain in left hip
CPT/HCPCS: 99212; G0463

== ENCOUNTER → 2023-02-03 10:02 | Outpatient (CLI) | payer OTHER, SELFPAY ==
[2023-02-03 11:39] LABS: Magnesium 2.2 mg/dl (1.6-2.3)
== END ==
PROVIDERS: PCP Physician Assistant; Visit Provider Physician Assistant
DX: E83.40 Disorders of magnesium metabolism, unspecified (principal)
CPT/HCPCS: 36415; 83735

== ENCOUNTER → 2023-02-11 12:14 | Outpatient (CLI) | payer OTHER, SELFPAY ==
[2023-02-11 13:29] LABS: Bilirubin,Unconjugated 0.3 mg/dL (0.0-1.1)
[2023-02-11 13:30] LABS: Alanine Aminotransferase 18 U/L (12-78); Albumin Level 4.1 g/dl (3.5-5.0); Alkaline Phosphatase 79 U/L (38-126); Aspartate Amino Transferase 20 U/L (14-36); Bilirubin,Indirect 0.3 mg/dL (0.0-0.9); Bilirubin,Total 0.3 mg/dl (0.2-1.3); Total Protein,Serum 6.5 g/dl (6.3-8.2)
== END ==
PROVIDERS: PCP Physician Assistant; Visit Provider Nurse Practitioner Primary Care
DX: Z79.899 Other long term (current) drug therapy (principal)
CPT/HCPCS: 36415; 80076

== ENCOUNTER → 2023-02-15 14:20 | Outpatient (POV) | payer OTHER, SELFPAY ==
--- NOTE | 2023-02-15 15:13 | EXP.PAIN.PRO ---
Procedure Date: 02/15/23 Time: 15:13 Anesthesiologist:: Yolie Pierre APRN Complications:: None Pre-procedure Diagnosis:: Degenerative disc disease of lumbar spine with lumbar radiculopathy symptoms Post-procedure Diagnosis:: Same Indications for Procedure:: Patient is a pleasant 42-year-old female who presents today for intrathecal pain pump reprogramming adjust. The patient is being treated for degenerative disc disease of lumbar spine with lumbar radiculopathy symptoms. Patient is currently being managed with intrathecal morphine 1 mg/mL with a daily dose of 0.1001 mg/day. Patient denies any side effects from this medication. Patient rates pain a 7 out of 10. Patient denies any new trauma or injury. Patient denies any change location or type of pain she experiences. She states she has been increasing her activity and has noticed significantly more pain when she is up moving around. She is currently managed with tizanidine 4 mg 3 times daily. Patient denies any side effects from this medication. She is requesting a refill at today's visit. Drug screen is appropriate. Amari has been reviewed and is appropriate. Physical exam General: Alert and oriented x3, no acute distress, pleasant and cooperative Lungs: Respirations even and unlabored, symmetrical chest expansion Eyes: PERRL Musculoskeletal: Flexion and extension of lumbar [spine] somewhat guarded secondary to pain, [antalgic gait noted] Neurological: Speech clear, no gross sensory deficit Skin: Incision sites clean, dry, well approximated with minimal erythema, jamel and sutures intact Procedure Details:: Informed consent was obtained and the risk and benefits of the procedure were explained to the patient. Patient was taken to the procedure room where noninvasive monitoring was placed including noninvasive blood pressure cuff and pulse oximeter. Patient's pump was interrogated and was reprogrammed to morphine 0.1199 mg/day. The patient tolerated the procedure well with no complications. Plan and Disposition:: Patient tolerated her intrathecal increase with no complications. Patient's incision site was clean, dry, well approximated with minimal erythema noted. She did have her sutures and jamel removed with skin glue and Steri-Strips applied. I have counseled the patient to continue her postop restrictions for the remaining 3 weeks. I will refill her tizanidine 4 mg 3 times daily and provide a 1 month supply of this medication. Patient was also set up with her PTM device at today's appointment. I have counseled the patient to discontinued her previous tramadol from here on out. Patient will return to clinic in 2 weeks for possible intrathecal adjustment. Patient has been instructed to contact the clinic with any concerns before the next appointment. Dr. Jimenez has reviewed this note and agrees with this plan of care. This note was dictated using voice recognition software and make contain errors or omissions. -- It Is medically necessary for this patient to continue to have their intrathecal pump refilled at regular intervals. This patient had an intrathecal pain pump implanted after meeting criteria of chronic intractable pain for greater than 3 months and failing conservative treatments. Patient has committed and been compliant to the treatment plan and all planned follow up care. Since implantation of the intrathecal pain pump, the patient has had decreased pain and been more functional. Oral medications have been reduced including intake of oral opioids. Patient continues to do well with intrathecal therapy with decrease in pain symptoms and increase in functional status. Stopping intrathecal medications can lead to life threatening withdrawal, seizures, cardiac arrest, severe pain, and possible . Pumps that are not refilled at regular intervals can be damages and cause and need for replacement. We continually titrate dose and concentration to optimize pain relief
[2023-02-15 15:28] VITALS: BP 144/95; PULSE 123; RESP 20; O2SAT 96; BMI 38.1
== END | disposition home or self-care (01) ==
PROVIDERS: PCP Physician Assistant; Visit Provider Nurse Practitioner Family
DX: Z45.1 Encounter for adjustment and management of infusion pump (principal); M51.16 Intervertebral disc disorders with radiculopathy, lumbar region
CPT/HCPCS: 62368; 99213; G0463

== ENCOUNTER 2023-02-23 14:42 | Emergency (ER) | payer OTHER, SELFPAY ==
[2023-02-23] VITALS (7 sets, daily range): BP systolic 117–149; BP diastolic 71–101; PULSE 80–122; RESP 16–20; TEMP 36.8; O2SAT 95–99; BMI 39.9
--- NOTE | 2023-02-23 14:47 | ECG_ITS ---
APPROVED REPORT Exam: Resting ECG HR:124 bpm ECG Measurements Heart Rate 124 AXES MI 131 P 56 QRSd 78 QRS 73 QT 301 T 16 QTc 374 Conclusion SINUS TACHYCARDIA ABNORMAL RHYTHM ECG UNCONFIRMED REPORT Electronically signed by : Michael Campo MD 02/24/2023 14:21:44
--- NOTE | 2023-02-23 15:35 | HMH.EDGENADL ---
Discharge Plan Disposition Patient Disposition: Home, Self-Care Prescriptions Prescriptions: No Action cholecalciferol (vitamin D3) 50 mcg (2,000 unit) capsule 50 mcg PO DAILY pantoprazole 40 mg tablet,delayed release (DR/EC) 40 mg PO BID sulfasalazine 500 mg tablet 0.5 g PO DAILY Rx Instructions: give with food (meal/snack) Linzess 290 mcg capsule 290 mcg PO DAILY oxycodone-acetaminophen [Percocet] 5-325 mg tablet 1 tab PO TID PRN (Reason: pain) Qty: 21 0RF clonazepam [Klonopin] 0.5 mg tablet 0.5 mg PO HS Qty: 30 0RF Rx Instructions: administer 30 minutes before bedtime gabapentin 600 mg tablet extended release 24 hr 600 mg PO HS Qty: 30 2RF hydrochlorothiazide 25 mg tablet 25 mg PO DAILY Qty: 90 3RF Rx Instructions: TAKE 1 TABLET BY MOUTH EVERY MORNING cetirizine 10 mg tablet See Rx Instructions .ROUTE .COMPLEX Rx Instructions: TAKE 1 TABLET BY MOUTH ONCE DAILY NEEDED FOR ALLERGY SYMPTOMS ferrous sulfate [FeroSul] 325 mg (65 mg iron) tablet 325 mg PO DAILY Rx Instructions: TAKE 1 TABLET BY MOUTH TWICE DAILY WITH FOOD fluticasone propionate 120 SPR/BOT bottle 1 spr NS DAILY Rx Instructions: each nostril daily montelukast 10 mg tablet 10 mg PO DAILY Rx Instructions: TAKE 1 TABLET BY MOUTH ONCE DAILY morphine (PF) 1 mg/mL Solution 1 mg intrathecal CONT Rx Instructions: REFER TO TELE READING FOR CURRENT DAILY DOSE tizanidine 4 mg tablet 4 mg PO TID Qty: 90 0RF Referrals Follow up/Referrals: Sarita Gómez PA [Primary Care Provider] - See instructions Activity Restrictions/Add. Instructions Additional Instructions/Restrictions: Please return to the emergency part with any worsening symptoms specifically a severe headache or any neurologic complaints. Otherwise follow-up with primary care doctor. Clinical Impressions Clinical Impression: Headache Discharge ED Provider: Jason Farmer General Adult HPI General Chief complaint: Headache Stated complaint: Pain pump, headache, palpitations Time Seen by Provider: 02/23/23 15:35 Mode of Arrival: Ambulatory Source of Information: Patient Limitations: No Limitations Description of Symptoms (Recalled from ER Triage Doc. by RN): pt to ed c/o headache. pt reports she has a morphine pain pump (0.12mg) and reports she received a routine bolus of medication and developed a sudden headache. pt reports her dose has not been changed and has had previous bolus' with no issues. History of Present Illness HPI narrative: 42-year-old female with a history of chronic back pain followed Dr. Jimenez with interventional pain medicine and has a lumbar pump with morphine infusion state that she had increasing lower back pain and gave her self bolus of her pain medication today and 15 minutes later at 1:45 PM she started to have a headache. She states this headache from the time of onset to time of maximal intensity took about 45 minutes to an hour to get to its maximal intensity. She does not have a history of any significant headaches no neurologic symptoms were associated with this. She states she called Dr. Jimenez and who told her to come to the emergency department. Related Data Home Medications Medication Instructions Recorded Confirmed cholecalciferol (vitamin D3) 50 50 mcg PO DAILY Supplement 11/24/21 02/15/23 mcg (2,000 unit) capsule fluticasone propionate 50 1 spr intranasal DAILY Allergy 01/03/22 02/15/23 mcg/actuation nasal symptoms spray,suspension montelukast 10 mg tablet 10 mg PO DAILY ALLERGIES 08/08/22 02/15/23 cetirizine 10 mg tablet See Rx Instructions .Route 08/16/22 02/15/23 .COMPLEX allergies pantoprazole 40 mg tablet,delayed 40 mg PO BID GERD 08/16/22 02/15/23 release linaclotide 290 mcg capsule 290 mcg PO DAILY constipation 01/24/23 02/15/23 (Linzess) sulfasalazine 500 mg tablet 0.5 g PO DAILY ankleoysing
--- NOTE | 2023-02-23 15:38 | CT_ITS ---
FINAL REPORT CLINICAL HISTORY: DEAN Headache after taking bolus from implanted pain pump patient stated. FINDINGS: Axial images of the head were obtained without contrast. Coronal reformatted images were also obtained.This study was performed with techniques to keep radiation doses as low as reasonably achievable (ALARA). Individualized dose reduction techniques using automated exposure control or adjustment of mA and/or kV according to the patient's size were employed. There is no evidence of intracranial hemorrhage or mass. The ventricular size is within normal limits. There is no evidence of shift of the midline structures. No abnormal extra axial fluid collection is identified. No skull abnormality is seen on the bone window images. IMPRESSION: No acute intracranial abnormality. Reviewed, Interpreted and Dictated by Maurice Mcdaniel III, MD Transcribed by Yue Tompkins Authenticated and [facility]
--- NOTE | 2023-02-23 16:07 | PC.NURSE ---
PT HAS BEEN MEDICATED AND RESTING
== END 2023-02-23 17:48 | disposition home or self-care (01) ==
PROVIDERS: Emergency Provider Student in an Organized Health Care Education/Training Program; PCP Physician Assistant
DX: R51.9 Headache, unspecified (principal); R00.2 Palpitations
CPT/HCPCS: 70450; 93005; 96360; 96374; 96375; 99285

== ENCOUNTER 2023-02-26 21:43 | Emergency (ER) | payer OTHER, SELFPAY ==
[2023-02-26 21:45] VITALS: BP 162/103; PULSE 112; RESP 16; TEMP 36.9; O2SAT 98; BMI 38.2
--- NOTE | 2023-02-26 21:56 | XR_ITS ---
PROCEDURE INFORMATION: Exam: XR Right Shoulder Exam date and time: 02/26/2023 10:17 PM Age: 42 years old Clinical indication: Injury or trauma; Fall; Additional info: Shoulder pain TECHNIQUE: Imaging protocol: Radiologic exam of the right shoulder. Views: 2 or more views. COMPARISON: CR XR CHEST 2V 02/26/2023 10:15 PM FINDINGS: Bones/joints: Comminuted nondisplaced fracture of the greater tuberosity of the right humeral head. Soft tissues: Normal. IMPRESSION: Comminuted nondisplaced fracture of the greater tuberosity of the right humeral head.
--- NOTE | 2023-02-26 22:04 | XR_ITS ---
PROCEDURE INFORMATION: Exam: XR Chest Exam date and time: 02/26/2023 10:15 PM Age: 42 years old Clinical indication: Injury or trauma; Fall TECHNIQUE: Imaging protocol: Radiologic exam of the chest. Views: 2 views. COMPARISON: CR XR CHEST PORTABLE 01/02/2023 9:32 AM FINDINGS: Lungs: Unremarkable. No consolidation. Pleural spaces: Unremarkable. No pleural effusion. No pneumothorax. Heart/Mediastinum: Unremarkable. No cardiomegaly. Bones/joints: Unremarkable. IMPRESSION: No acute findings.
--- NOTE | 2023-02-26 22:05 | CT_ITS ---
PROCEDURE INFORMATION: Exam: CT Cervical Spine Without Contrast Exam date and time: 02/26/2023 10:44 PM Age: 42 years old Clinical indication: Injury or trauma; Fall TECHNIQUE: Imaging protocol: Computed tomography of the cervical spine without contrast. Radiation optimization: All CT scans at this facility use at least one of these dose optimization techniques: automated exposure control; mA and/or kV adjustment per patient size (includes targeted exams where dose is matched to clinical indication); or iterative reconstruction. REPORTING DATA: Count of CT and Cardiac NM exams in prior 12 months: This patient has received 4 known CTs and 0 known cardiac nuclear medicine studies in the 12 months prior to the current study. COMPARISON: CT HEAD/BRAIN WO CON 02/26/2023 10:42 PM FINDINGS: Bones/joints: Spine alignment is normal. No fracture or bone destruction. Moderate disc osteophyte complex C5-C6. Lungs: Lung apices are normal. Soft tissues: Unremarkable. IMPRESSION: 1. Spine alignment is normal. 2. No fracture or bone destruction. 3. Moderate disc osteophyte complex C5-C6.
--- NOTE | 2023-02-26 22:05 | XR_ITS ---
PROCEDURE INFORMATION: Exam: XR Right Wrist Exam date and time: 02/26/2023 10:22 PM Age: 42 years old Clinical indication: Injury or trauma; Fall; Other: [id number] TECHNIQUE: Imaging protocol: Radiologic exam of the right wrist. Views: 3 or more views. COMPARISON: US CA ARTERIAL PSEUDO RT UPPER 08/02/2022 1:31 PM FINDINGS: Bones/joints: Normal. Soft tissues: Normal. IMPRESSION: No acute findings.
--- NOTE | 2023-02-26 22:05 | XR_ITS ---
PROCEDURE INFORMATION: Exam: XR Right Elbow Exam date and time: 02/26/2023 10:25 PM Age: 42 years old Clinical indication: Injury or trauma; Fall TECHNIQUE: Imaging protocol: Radiologic exam of the right elbow. Views: 1 or 2 views. COMPARISON: CR Forearm R 02/26/2023 10:24 PM FINDINGS: Bones/joints: Normal. Soft tissues: Normal. IMPRESSION: No acute findings.
--- NOTE | 2023-02-26 22:05 | XR_ITS ---
PROCEDURE INFORMATION: Exam: XR Right Humerus Exam date and time: 02/26/2023 10:20 PM Age: 42 years old Clinical indication: Injury or trauma; Fall TECHNIQUE: Imaging protocol: Radiologic exam of the right humerus. Views: 2 or more views. COMPARISON: CR Shoulder R 02/26/2023 10:17 PM FINDINGS: Bones/joints: Normal. Soft tissues: Normal. IMPRESSION: No acute findings.
--- NOTE | 2023-02-26 22:05 | XR_ITS ---
PROCEDURE INFORMATION: Exam: XR Right Forearm Exam date and time: 02/26/2023 10:24 PM Age: 42 years old Clinical indication: Injury or trauma; Fall; Other: [id number] TECHNIQUE: Imaging protocol: Radiologic exam of the right forearm. Views: 2 views. COMPARISON: CR Wrist R 02/26/2023 10:22 PM FINDINGS: Bones/joints: Normal. Soft tissues: Normal. IMPRESSION: No acute findings.
--- NOTE | 2023-02-26 22:06 | CT_ITS ---
PROCEDURE INFORMATION: Exam: CT Head Without Contrast Exam date and time: 02/26/2023 10:42 PM Age: 42 years old Clinical indication: Injury or trauma; Fall TECHNIQUE: Imaging protocol: Computed tomography of the head without contrast. Radiation optimization: All CT scans at this facility use at least one of these dose optimization techniques: automated exposure control; mA and/or kV adjustment per patient size (includes targeted exams where dose is matched to clinical indication); or iterative reconstruction. REPORTING DATA: Count of CT and Cardiac NM exams in prior 12 months: This patient has received 4 known CTs and 0 known cardiac nuclear medicine studies in the 12 months prior to the current study. COMPARISON: No relevant prior studies available. FINDINGS: Brain: Normal. No hemorrhage. Unremarkable white matter. No mass effect. Cerebral ventricles: No ventriculomegaly. Pituitary gland and sella: Negative Paranasal sinuses: Visualized sinuses are unremarkable. No fluid levels. Mastoid air cells: Visualized mastoid air cells are well aerated. Orbital cavities: Negative. Parotid and submandibular glands: Negative Bones/joints: Unremarkable. No acute fracture. Soft tissues: Unremarkable. Vasculature: Negative. IMPRESSION: No acute intracranial abnormality.
--- NOTE | 2023-02-26 22:06 | PC.NURSE ---
Pt states that she is not able to have any pain medication due to her pain pump. Pt states that this includes ibuprofen and toradol.
[2023-02-26 23:01] VITALS: BP 129/98; PULSE 98; RESP 18; O2SAT 98
--- NOTE | 2023-02-26 23:18 | HMH.EDUPEXT ---
Discharge Plan Disposition Patient Disposition: Home, Self-Care Chief Complaint: Extremity Injury, Upper Prescriptions Prescriptions: No Action cholecalciferol (vitamin D3) 50 mcg (2,000 unit) capsule 50 mcg PO DAILY pantoprazole 40 mg tablet,delayed release (DR/EC) 40 mg PO BID sulfasalazine 500 mg tablet 0.5 g PO DAILY Rx Instructions: give with food (meal/snack) Linzess 290 mcg capsule 290 mcg PO DAILY clonazepam [Klonopin] 0.5 mg tablet 0.5 mg PO HS Qty: 30 0RF Rx Instructions: administer 30 minutes before bedtime gabapentin 600 mg tablet extended release 24 hr 600 mg PO HS Qty: 30 2RF hydrochlorothiazide 25 mg tablet 25 mg PO DAILY Qty: 90 3RF Rx Instructions: TAKE 1 TABLET BY MOUTH EVERY MORNING cetirizine 10 mg tablet See Rx Instructions .ROUTE .COMPLEX Rx Instructions: TAKE 1 TABLET BY MOUTH ONCE DAILY NEEDED FOR ALLERGY SYMPTOMS ferrous sulfate [FeroSul] 325 mg (65 mg iron) tablet 325 mg PO DAILY Rx Instructions: TAKE 1 TABLET BY MOUTH TWICE DAILY WITH FOOD fluticasone propionate 120 SPR/BOT bottle 1 spr NS DAILY Rx Instructions: each nostril daily montelukast 10 mg tablet 10 mg PO DAILY Rx Instructions: TAKE 1 TABLET BY MOUTH ONCE DAILY morphine (PF) 1 mg/mL Solution 1 mg intrathecal CONT Rx Instructions: REFER TO TELE READING FOR CURRENT DAILY DOSE tizanidine 4 mg tablet 4 mg PO TID Qty: 90 0RF Referrals Follow up/Referrals: Sarita Gómez PA [Primary Care Provider] - See instructions Lee Chavez JR, MD [Physician] - See instructions Clinical Impressions Clinical Impression: Fracture of humeral head Instructions Patient Instructions: DI for Humeral Fracture Discharge ED Provider: Gene (ED)[facility] Upper Extremity HPI General Chief Complaint: Extremity Injury, Upper Stated Complaint: ao 02/27@2130 at home injured R shoulder Time Seen by Provider: 02/26/23 23:18 Mode of Arrival: Ambulatory Source of Information: Patient, Spouse and Medical Record Limitations: No Limitations Description of Symptoms (Recalled from ER Triage Doc. by RN): Pt arrives to ED with c/o right shoulder pain that radiates down her arm after falling off a step ladder approx 5 ft tall around 2130 tonight. Pt denies LOC and does not take blood thinners. Pt denies any other injuries. Pt stated she has a morphine pain pump for chronic back pain. History of Present Illness HPI narrative: knocked off step ladder tonight with acute injury rt shoulder - no loc - MD complaint: injury to: right and shoulder Onset (ago): hour(s) Other Extremity Injury: Right: shoulder Other injuries: none Handedness: right Place: home Severity: moderate Context: fall Associated symptoms: denies other symptoms Related Data Home Medications Medication Instructions Recorded Confirmed cholecalciferol (vitamin D3) 50 50 mcg PO DAILY Supplement 11/24/21 02/15/23 mcg (2,000 unit) capsule fluticasone propionate 50 1 spr intranasal DAILY Allergy 01/03/22 02/15/23 mcg/actuation nasal symptoms spray,suspension montelukast 10 mg tablet 10 mg PO DAILY ALLERGIES 08/08/22 02/15/23 cetirizine 10 mg tablet See Rx Instructions .Route 08/16/22 02/15/23 .COMPLEX allergies pantoprazole 40 mg tablet,delayed 40 mg PO BID GERD 08/16/22 02/15/23 release linaclotide 290 mcg capsule 290 mcg PO DAILY constipation 01/24/23 02/15/23 (Linzess) sulfasalazine 500 mg tablet 0.5 g PO DAILY ankleoysing 01/24/23 02/15/23 spondilitis ferrous sulfate 325 mg (65 mg 325 mg PO DAILY Supplement 01/26/23 02/15/23 iron) tablet (FeroSul) morphine (PF) 1 mg/mL injection 1 mg intrathecal CONT Pain 02/03/23 02/15/23 solution Previous Rx's Medication Instructions Recorded clonazepam 0.5 mg tablet (Klonopin) 0.5 mg PO HS Anxiety #30 tabs 02/14/23 tizanidine 4 mg tablet 4 mg PO TID muscle spasms #90 tabs 02/16
[2023-02-26 23:26] VITALS: BP 150/80; PULSE 103; RESP 18; TEMP 36.6; O2SAT 99
== END 2023-02-26 23:54 | disposition home or self-care (01) ==
PROVIDERS: Emergency Provider Emergency Medicine; PCP Physician Assistant
DX: S42.254A Nondisplaced fracture of greater tuberosity of right humerus, initial encounter for closed fracture (principal); W11.XXXA Fall on and from ladder, initial encounter
CPT/HCPCS: 29105; 70450; 71046; 72125; 73030; 73060; 73070; 73090; 73110; 99284; 99285

== ENCOUNTER → 2023-03-02 14:42 | Outpatient (POV) | payer OTHER, SELFPAY ==
[2023-03-02 14:53] VITALS: BP 130/85; PULSE 92; RESP 18; O2SAT 100; BMI 39.9
--- NOTE | 2023-03-02 15:02 | EXP.PAIN.PRO ---
Procedure Date: 03/02/23 Time: 15:02 Anesthesiologist:: Yolie Pierre APRN Complications:: None Pre-procedure Diagnosis:: Degenerative disc disease of cervical and lumbar spine with cervical and lumbar radiculopathy symptoms, sacroiliitis, bilateral hip pain Post-procedure Diagnosis:: Degenerative disc disease of cervical and lumbar spine with cervical and lumbar radiculopathy symptoms, sacroiliitis, bilateral hip pain, nondisplaced humeral head fracture Indications for Procedure:: Patient is a pleasant 42-year-old female who presents today for follow-up of recent fall and subsequent shoulder fracture.? We are currently treating the patient for degenerative disc disease of cervical and lumbar spine with cervical and lumbar radiculopathy, sacroiliitis, bilateral hip pain.? Today she rates her pain at a 5 out of 10.? She states that overall her back has been doing better with the intrathecal pain pump however she was up putting something away on a stepladder when her dog ran through and knocked the ladder out from under her. Patient states that she did present to the ER and did have imaging done that did show a nondisplaced right humeral head fracture. Patient is scheduled to see orthopedics tomorrow and she was given Tylenol 3 with codeine in the ER. Patient states she was able to get into her primary care doctor who prescribed 10 tablets of Percocet 5 mg. Patient states she has been stretching this medication at all and it is doing somewhat okay. She is currently managed with morphine 1 mg/mL with a daily dose of 0. 1199 mg/day.? Patient denies any side effects from this medication.? Her Amari is currently pending. Physical Exam: General: Alert and oriented x3, no acute distress, pleasant and cooperative Lungs: Respirations even and unlabored, symmetrical chest expansion Eyes: PERRL Musculoskeletal: Flexion and extension of right shoulder somewhat guarded secondary to pain, [antalgic gait noted] Neurological: Speech clear, no gross sensory deficit PROCEDURE INFORMATION: Exam: XR Right Shoulder Exam date and time: 02/26/2023 10:17 PM Age: 42 years old Clinical indication: Injury or trauma; Fall; Additional info: Shoulder pain TECHNIQUE: Imaging protocol: Radiologic exam of the right shoulder. Views: 2 or more views. COMPARISON: CR XR CHEST 2V 02/26/2023 10:15 PM FINDINGS: Bones/joints: Comminuted nondisplaced fracture of the greater tuberosity of the right humeral head. Soft tissues: Normal. IMPRESSION: Comminuted nondisplaced fracture of the greater tuberosity of the right humeral head. Procedure Details:: Informed consent was obtained and the risk and benefits of the procedure were explained to the patient. Patient was taken to the procedure room where noninvasive monitoring was placed including noninvasive blood pressure cuff and pulse oximeter. Patient's pump was interrogated and was reprogrammed to morphine 1 mg/mL with a daily dose of 0.1439 mg/day. The patient tolerated the procedure well with no complications. Plan and Disposition:: Patient is experiencing significant pain related to a recent humeral head fracture. I will send in a prescription of prednisone 20 mg twice daily with a 10-day supply as well as diclofenac 75 mg twice daily with a 14-day supply. Patient tolerated her 20% intrathecal pain pump increase well with no complications. Patient will return to clinic in 2 weeks for reevaluation of symptoms and plan of care. Patient has been instructed to contact the clinic with any concerns before the next appointment. Dr. Jimenez has reviewed this note and agrees with this plan of care. This note was dictated using voice recognition software and make contain errors or omissions. -- It Is medically necessary for this patient to continue to have their intrathecal pump refilled at regular intervals. This patient had an intrathecal pain pump implanted after
== END | disposition home or self-care (01) ==
PROVIDERS: PCP Physician Assistant; Visit Provider Nurse Practitioner Family
DX: Z45.1 Encounter for adjustment and management of infusion pump (principal); M51.16 Intervertebral disc disorders with radiculopathy, lumbar region; M50.10 Cervical disc disorder with radiculopathy, unspecified cervical region; M46.1 Sacroiliitis, not elsewhere classified; M25.551 Pain in right hip; M25.552 Pain in left hip
CPT/HCPCS: 62368; 99213; G0463

== ENCOUNTER → 2023-03-20 14:34 | Outpatient (POV) | payer OTHER, SELFPAY ==
--- NOTE | 2023-03-20 15:41 | EXP.PAIN.PRO ---
Procedure Date: 03/20/23 Time: 15:41 Anesthesiologist:: Yolie Pierre APRN Complications:: None Pre-procedure Diagnosis:: Degenerative disc disease of cervical and lumbar spine with cervical and lumbar radiculopathy symptoms, bilateral hip pain, sacroiliitis, right shoulder pain Post-procedure Diagnosis:: Same Indications for Procedure:: Patient is a pleasant 43-year-old female who presents today for follow-up. We are currently treating the patient for degenerative disc disease of cervical and lumbar spine with cervical and lumbar radiculopathy symptoms, bilateral hip pain, sacroiliitis, right shoulder pain. Today she rates her pain a 5 out of 10. Patient does state that she does have better pain improvement from her last adjustment. She states she does still have worsening pain in times of prolonged sitting. She states that she did recently have to sit on bleachers for several hours which caused significant pain. She states that her nondisplaced fracture of her right humeral head is doing well. They have remove the sling and are still stating that she does not require surgery. Patient is currently managed with tizanidine 4 mg 3 times daily and intrathecal morphine 1 mg/mL with a daily dose of 0.1439 mg/day. Patient denies any side effects from this medication. Her Amari has been reviewed and is appropriate. Physical Exam: General: Alert and oriented x3, no acute distress, pleasant and cooperative Lungs: Respirations even and unlabored, symmetrical chest expansion Eyes: PERRL Musculoskeletal: Flexion and extension of lumbar [spine] somewhat guarded secondary to pain, [antalgic gait noted] Neurological: Speech clear, no gross sensory deficit Procedure Details:: Informed consent was obtained and the risk and benefits of the procedure were explained to the patient. Patient was taken to the procedure room where noninvasive monitoring was placed including noninvasive blood pressure cuff and pulse oximeter. Patient's pump was interrogated and was reprogrammed to morphine 0.1584 mg/day. The patient tolerated the procedure well with no complications. Plan and Disposition:: I will refill the patient's tizanidine 4 mg 3 times daily and send in an order for compounding cream. Patient tolerated her intrathecal increase with no complications and was discharged neurologically intact. Patient will return to clinic in 1 month for reevaluation of symptoms and plan of care. Patient has been instructed to contact the clinic with any concerns before the next appointment. Dr. Jimenez has reviewed this note and agrees with this plan of care. This note was dictated using voice recognition software and make contain errors or omissions. -- It Is medically necessary for this patient to continue to have their intrathecal pump refilled at regular intervals. This patient had an intrathecal pain pump implanted after meeting criteria of chronic intractable pain for greater than 3 months and failing conservative treatments. Patient has committed and been compliant to the treatment plan and all planned follow up care. Since implantation of the intrathecal pain pump, the patient has had decreased pain and been more functional. Oral medications have been reduced including intake of oral opioids. Patient continues to do well with intrathecal therapy with decrease in pain symptoms and increase in functional status. Stopping intrathecal medications can lead to life threatening withdrawal, seizures, cardiac arrest, severe pain, and possible . Pumps that are not refilled at regular intervals can be damages and cause and need for replacement. We continually titrate dose and concentration to optimize pain relief and function. We are limited in concentration for certain drugs to safely deliver medications through the pump and stay within the recommendations from the Polyanalgesic Consensus Committee Guidelines. Depending on dose and concentration these pumps may need to be refil
[2023-03-20 15:58] VITALS: BP 145/87; PULSE 82; RESP 18; O2SAT 97; BMI 39.9
== END | disposition home or self-care (01) ==
PROVIDERS: PCP Physician Assistant; Visit Provider Nurse Practitioner Family
DX: M51.16 Intervertebral disc disorders with radiculopathy, lumbar region (principal); M50.10 Cervical disc disorder with radiculopathy, unspecified cervical region; M46.1 Sacroiliitis, not elsewhere classified; M25.511 Pain in right shoulder; M25.551 Pain in right hip; M25.552 Pain in left hip
CPT/HCPCS: 62368; 99213; G0463

== ENCOUNTER → 2023-03-29 09:25 | Outpatient (CLI) | payer OTHER, SELFPAY ==
--- NOTE | 2023-03-29 09:34 | US_ITS ---
FINAL REPORT CLINICAL HISTORY: follow up to ovarian cyst. COMPARISON: 12/08/2022 FINDINGS: Transvaginal sonographic images of the pelvis were obtained. The right ovary measures 2.1 cm in length. No mass is identified. The left ovary measures up to 3.6 cm in length with a 2.8 cm cyst which previously measured 2.0 cm. Blood flow is seen to both ovaries. No free fluid is identified. IMPRESSION: Left ovarian cyst. Additional follow-up in 6-8 weeks may be helpful. Reviewed, Interpreted and Dictated by Maurice Mcdaniel III, MD Transcribed by Ro Ochoa Authenticated and [facility]
== END ==
PROVIDERS: PCP Physician Assistant; Visit Provider Obstetrics & Gynecology
DX: N83.209 Unspecified ovarian cyst, unspecified side (principal)
CPT/HCPCS: 76830

== ENCOUNTER → 2023-03-31 13:23 | Outpatient (CLI) | payer OTHER, SELFPAY ==
--- NOTE | 2023-03-31 13:25 | XR_ITS ---
FINAL REPORT CLINICAL HISTORY: rt shoulder pain COMPARISON: 02/27/2023 FINDINGS: RIGHT SHOULDER Three views demonstrate a comminuted, nondisplaced of fracture of the humeral head and neck. Alignment is unchanged from prior exam. There are mild degenerative changes of the acromioclavicular joint. No soft tissue abnormality is seen. IMPRESSION: No significant change in comminuted, nondisplaced humeral head and neck fracture. Reviewed, Interpreted and Dictated by Maurice Mcdaniel III, MD Transcribed by Lesvai Nation Authenticated and [facility]
== END ==
PROVIDERS: PCP Physician Assistant; Visit Provider Orthopaedic Surgery
DX: S42.251A Displaced fracture of greater tuberosity of right humerus, initial encounter for closed fracture (principal)
CPT/HCPCS: 73030

== ENCOUNTER → 2023-04-20 13:13 | Outpatient (POV) | payer OTHER, SELFPAY ==
--- NOTE | 2023-04-20 13:37 | EXP.PAIN.PRO ---
Procedure Date: 04/20/23 Time: 13:38 Anesthesiologist:: Yolie Pierre APRN Complications:: None Pre-procedure Diagnosis:: degenerative disc disease of cervical and lumbar spine with cervical and lumbar radiculopathy symptoms, sacroiliitis, bilateral hip pain, neck pain Post-procedure Diagnosis:: Same Indications for Procedure:: Patient is a pleasant 43-year-old female who presents today for medication refill and follow-up. We are currently treating the patient for degenerative disc disease of cervical and lumbar spine with cervical and lumbar radiculopathy symptoms, sacroiliitis, bilateral hip pain, neck pain. Today she rates her pain a 4 out of 10. Patient denies any new trauma or injury. Patient denies any change to location or type of pain she experiences. Patient states she is experiencing more neck pain. Patient does describe this as a chronic pain that is an aching, throbbing sensation that is worse with increased activity. Patient does state that it limits some of her range of motion and that it does interfere with her ability perform activities of daily living such as cooking and cleaning. Patient is currently managed with intrathecal morphine 1 mg/mL with a daily dose of 0.1584 mg/day. Patient denies any side effects from this medication. She does state that this is the best she has been with pain coverage for some time. She states that she does feel like the pump covers her low back pain up to mid back. She states she has been able to increase her activity with decreased pain symptoms. She is also managed with tizanidine 4 mg 3 times daily. Patient denies any side effects from this medication and states that she is needing a refill. Her Amari is currently pending. Physical Exam: General: Alert and oriented x3, no acute distress, pleasant and cooperative Lungs: Respirations even and unlabored, symmetrical chest expansion Eyes: PERRL Musculoskeletal: Flexion and extension of cervical, lumbar [spine] somewhat guarded secondary to pain, [antalgic gait noted] Neurological: Speech clear, no gross sensory deficit Procedure Details:: Informed consent was obtained and the risk and benefits of the procedure were explained to the patient. Patient was taken to the procedure room where noninvasive monitoring was placed including noninvasive blood pressure cuff and pulse oximeter. Patient's pump was interrogated and was reprogrammed to morphine 0.1741 mg/day. The patient tolerated the procedure well with no complications. Plan and Disposition:: Patient is experiencing worsening pain in her neck with radiating symptoms into her upper extremities. Patient had limited range of motion of her cervical spine during today's exam. I have discussed with the patient that she may benefit from a cervical epidural steroid injection. Risk and benefits were discussed with the patient and she would like to proceed forward with this plan of care. Patient is not on any blood thinners. I will also send in a refill of her tizanidine 4 mg 3 times daily and provide a 1 month supply of this medication. Patient will be scheduled for a LESLIE C6-C7. Patient has been instructed to contact the clinic with any concerns before the next appointment. Dr. Jimenez has reviewed this note and agrees with this plan of care. This note was dictated using voice recognition software and make contain errors or omissions. -- It Is medically necessary for this patient to continue to have their intrathecal pump refilled at regular intervals. This patient had an intrathecal pain pump implanted after meeting criteria of chronic intractable pain for greater than 3 months and failing conservative treatments. Patient has committed and been compliant to the treatment plan and all planned follow up care. Since implantation of the intrathecal pain pump, the patient has had decreased pain and been more functional. Oral medications have been reduced including intake of oral opioids. Patient cont
[2023-04-20 14:00] VITALS: BP 129/86; PULSE 110; RESP 20; TEMP 37.1; O2SAT 99; BMI 39.9
== END | disposition home or self-care (01) ==
PROVIDERS: PCP Physician Assistant; Visit Provider Nurse Practitioner Family
DX: M50.10 Cervical disc disorder with radiculopathy, unspecified cervical region (principal); M51.16 Intervertebral disc disorders with radiculopathy, lumbar region; M46.1 Sacroiliitis, not elsewhere classified; M25.551 Pain in right hip; M25.552 Pain in left hip; Z97.8 Presence of other specified devices
CPT/HCPCS: 62368; 99213; G0463

== ENCOUNTER 2023-05-02 12:29 | Day surgery (SDC) | payer OTHER, SELFPAY ==
[2023-05-02 12:55] VITALS: BP 124/76; PULSE 87; RESP 18; TEMP 36.9; O2SAT 94; BMI 39.9
[2023-05-02 13:04] VITALS: BP 161/86; PULSE 94; RESP 18; O2SAT 95
[2023-05-02 13:06] VITALS: BP 161/86; PULSE 94; RESP 18; O2SAT 95
--- NOTE | 2023-05-02 13:12 | EXP.PAIN.PRO ---
Procedure Date: 05/02/23 Time: 13:00 Anesthesiologist:: Denis Hare CRNA Complications:: None Pre-procedure Diagnosis:: Degenerative disc cervical spine multilevels. Disc bulge cervical spine. Cervical radiculopathy. Degenerative disc lumbar spine multilevels. Lumbar radiculopathy. Post-procedure Diagnosis:: Same. Indications for Procedure:: Patient is a very pleasant 43-year-old female comes our clinic today for intrathecal pain pump interrogation refill. Patient currently being managed with morphine sulfate 1 mg/mL at a daily dose of 0.1584 mg/day. In regards to low back pain and bilateral hip and leg radicular symptoms patient is doing very well. However, she is complaining of cervical neck pain with cervical radiculopathy in the bilateral arms. Patient was recently denied cervical epidural steroid injection by insurance. Patient did receive cervical epidural steroid injections prior to the pump placement over the last couple of years. Patient states these injections in the cervical spine have been very beneficial in the past. Patient requesting again cervical epidural steroid injections. I think this is a reasonable avenue of treatment due to the fact she has had successful cervical epidural injections in the past. Also, I feel this would help with her bilateral arm radicular symptoms. She rates her pain 7/10 in the cervical spine as well as bilateral arm radicular symptoms. Procedure Details:: Details of the procedure explained to the patient. The patient taken the procedure room placed in the sitting position. The over the pump was cleansed using chlorhexidine as a cleansing solution. The pump was interrogated. The pump was accessed with ease using a 22-gauge inch and half needle. 5 mL of solution was withdrawn and discarded appropriately. The pump was then filled incrementally with 20 cc of morphine sulfate 1 mg/mL. Patient's pump rate will remain the same at 0.158 4 mg/day patient tolerated procedure without difficulty. There are no complications. Plan and Disposition:: Patient was discharged without incident.
[2023-05-02 13:20] VITALS: BP 120/90; PULSE 88; RESP 18; O2SAT 98
== END 2023-05-02 13:20 | disposition home or self-care (01) ==
PROVIDERS: PCP Physician Assistant; Visit Provider Nurse Anesthetist, Certified Registered
DX: M50.10 Cervical disc disorder with radiculopathy, unspecified cervical region (principal); M51.16 Intervertebral disc disorders with radiculopathy, lumbar region
CPT/HCPCS: 95991

== ENCOUNTER → 2023-05-05 12:31 | Outpatient (CLI) | payer OTHER, SELFPAY ==
--- NOTE | 2023-05-05 12:36 | XR_ITS ---
FINAL REPORT CLINICAL HISTORY: Rt shoulder pain COMPARISON: 03/31/2023 FINDINGS: RIGHT SHOULDER SERIES Three views of the right shoulder were obtained. There is a subacute to chronic fracture of the lateral humeral head with evidence of interval healing since the prior exam. The joint spaces are preserved. There is no soft tissue abnormality. IMPRESSION: Fracture of the lateral humeral head with evidence of interval healing. Reviewed, Interpreted and Dictated by Maurice Mcdaniel III, MD Transcribed by Arron Penaloza Authenticated and [facility]
== END ==
PROVIDERS: PCP Physician Assistant; Visit Provider Orthopaedic Surgery
DX: M25.511 Pain in right shoulder (principal); S42.251A Displaced fracture of greater tuberosity of right humerus, initial encounter for closed fracture
CPT/HCPCS: 73030

== ENCOUNTER → 2023-05-26 15:22 | Outpatient (CLI) | payer OTHER, SELFPAY ==
--- NOTE | 2023-05-26 15:22 | US_ITS ---
PROCEDURE: US TRANSVAGINAL CLINICAL INDICATION: ovarian cyst Follow-up exam COMPARISON: US US TRANSVAGINAL from 03/29/2023 FINDINGS: Transvaginal and transabdominal sonographic images of the pelvis were obtained. Technically difficult exam due to overlying bowel and body habitus. UTERUS: Surgically absent Vaginal cuff appears normal. LEFT OVARY: 4.1 cmx2.3 cm the previously described 2.8 cm follicle on the left ovary has now completely resolved. RIGHT OVARY: 2cmx [id number] with a volume of 4.5ml. Both ovaries are seen and appear normal. Doppler flow to both ovaries are seen. There is no fluid in the cul-de-sac. IMPRESSION: 1. The uterus is surgically absent. The vaginal cuff appears normal. 2. Technically difficult examination. 3. Transvaginal and transabdominal images were obtained. 4. The previously described 2.8 cm left ovarian follicle has completely resolved. Dictated by: Reggie Paiz MD 05/27/2023 10:06 Reggie Paiz MD in [place] 05/27/2023 10:06
== END ==
PROVIDERS: PCP Physician Assistant; Visit Provider Obstetrics & Gynecology
DX: N83.209 Unspecified ovarian cyst, unspecified side (principal)
CPT/HCPCS: 76830

== ENCOUNTER → 2023-06-01 10:27 | Outpatient (POV) | payer OTHER, SELFPAY ==
[2023-06-01 10:40] VITALS: BP 150/93; PULSE 94; RESP 20; BMI 39.9
--- NOTE | 2023-06-01 11:31 | EXP.PAIN.PRO ---
Procedure Date: 06/01/23 Time: 10:37 Anesthesiologist:: Yolie Pierre APRN Complications:: None Pre-procedure Diagnosis:: Degenerative disc disease of cervical and lumbar spine multilevels with cervical and lumbar radiculopathy symptoms Post-procedure Diagnosis:: Same Indications for Procedure:: Patient is a pleasant 43-year-old female who presents today for intrathecal refill and reprogram. We are currently treating the patient for degenerative disc disease of cervical and lumbar spine multilevels with cervical and lumbar radiculopathy symptoms. Today she rates her pain a 7 out of 10. Patient denies any new trauma or injury. She denies any change location or type of pain she experiences. Patient states she continues to have pain in her neck and low back as well as her right shoulder that is still healing from a previous fracture. She states that her cell tuber hand did just start her on Humira so she is really just not been feeling like herself. Patient is currently managed with morphine 1 mg/mL with a daily dose of 0.1741 mg/day. Patient denies any side effects from this medication. She does also state that it has been 6 months since her last thoracic MRI related to a cyst that was found and that they are continuing to monitor. At this time they are not recommending surgery. Her Amari is currently pending. Physical Exam: General: Alert and oriented x3, no acute distress, pleasant and cooperative Lungs: Respirations even and unlabored, symmetrical chest expansion Eyes: PERRL Musculoskeletal: Flexion and extension of lumbar [spine] somewhat guarded secondary to pain, [antalgic gait noted] Neurological: Speech clear, no gross sensory deficit Procedure Details:: Informed consent was obtained and the risk and benefits of the procedure were explained to the patient. Patient was taken to the procedure room where noninvasive monitoring was placed including noninvasive blood pressure cuff and pulse oximeter. Patient's pump was interrogated and was reprogrammed to morphine 0.2091 mg/day. The patient tolerated the procedure well with no complications. Plan and Disposition:: I will order a MRI of her thoracic spine related to a thoracic cyst and to verify no additional growth. Patient did tolerate her intrathecal increase with no complications and was discharged neurologically intact. Patient will return to clinic in 2 weeks for reevaluation of symptoms and plan of care. Patient has been instructed to contact the clinic with any concerns before the next appointment. Dr. Jimenez has reviewed this note and agrees with this plan of care. This note was dictated using voice recognition software and make contain errors or omissions. -- It Is medically necessary for this patient to continue to have their intrathecal pump refilled at regular intervals. This patient had an intrathecal pain pump implanted after meeting criteria of chronic intractable pain for greater than 3 months and failing conservative treatments. Patient has committed and been compliant to the treatment plan and all planned follow up care. Since implantation of the intrathecal pain pump, the patient has had decreased pain and been more functional. Oral medications have been reduced including intake of oral opioids. Patient continues to do well with intrathecal therapy with decrease in pain symptoms and increase in functional status. Stopping intrathecal medications can lead to life threatening withdrawal, seizures, cardiac arrest, severe pain, and possible . Pumps that are not refilled at regular intervals can be damages and cause and need for replacement. We continually titrate dose and concentration to optimize pain relief and function. We are limited in concentration for certain drugs to safely deliver medications through the pump and stay within the recommendations from the Polyanalgesic Consensus Committee Guidelines. Depending on dose and concentration these pumps may need to be re
== END | disposition home or self-care (01) ==
PROVIDERS: PCP Physician Assistant; Visit Provider Nurse Practitioner Family
DX: M50.10 Cervical disc disorder with radiculopathy, unspecified cervical region (principal); M51.16 Intervertebral disc disorders with radiculopathy, lumbar region
CPT/HCPCS: 62368

== ENCOUNTER → 2023-06-01 11:09 | Outpatient (CLI) | payer OTHER, SELFPAY ==
[2023-06-01 12:02] LABS: Basophils % 0.6 % (0.1-2.0); Eosinophils # 0.2 K/mm3 (0.0-0.4); Eosinophils % 3.5 % (0.1-12.0); Hematocrit 42.9 % (37.0-47.0); Hemoglobin 13.8 g/dL (12.2-16.2); Lymphocytes # 2.5 K/mm3 (0.7-4.5); Lymphocytes % 37.2 % (10-50); Mean Corpuscular HGB Conc 32.1 g/dL (31.8-35.4); Mean Corpuscular Hemoglobin 28.6 pg (27.0-31.2); Mean Corpuscular Volume 89.3 fl (81-99); Mean Platelet Volume 9.2 fl (7.4-10.4); Monocytes # 0.5 K/mm3 (0.1-1.0); Monocytes % 7.4 % (1.7-9.3); Neutrophils # 3.4 K/mm3 (1.8-7.8); Neutrophils % 51.3 % (37.0-80.0); Platelet Count 343 K/mm3 (142-424); Red Blood Count 4.81 M/mm3 (4.20-5.40); Red Cell Distribution Width 12.4 % (11.5-17.5); White Blood Count 6.6 K/mm3 (4.8-10.8)
[2023-06-01 13:04] LABS: Vitamin B12 218 pg/mL (239-931)
[2023-06-01 13:52] LABS: Iron 85 ug/dL (37-170)
[2023-06-01 14:02] LABS: Total Iron Binding Capacity 279 ug/dL (265-497)
[2023-06-01 14:29] LABS: Ferritin 87.8 ng/ml (6.24-137)
== END ==
PROVIDERS: PCP Physician Assistant; Visit Provider Nurse Practitioner Family
DX: E83.10 Disorder of iron metabolism, unspecified (principal); E53.8 Deficiency of other specified B group vitamins
CPT/HCPCS: 36415; 82607; 82728; 83540; 83550; 85025

== ENCOUNTER → 2023-06-15 10:52 | Outpatient (POV) | payer OTHER, SELFPAY ==
--- NOTE | 2023-06-15 11:17 | EXP.PAIN.PRO ---
Procedure Date: 06/15/23 Time: 11:17 Anesthesiologist:: Yolie Pierre APRN Complications:: None Pre-procedure Diagnosis:: Degenerative disc disease of cervical and lumbar spine multilevels with cervical and lumbar radiculopathy symptoms Post-procedure Diagnosis:: Sign Indications for Procedure:: Patient is a pleasant 43-year-old female who presents today for intrathecal reprogramming adjustment. We are currently treating the patient for degenerative disc disease of cervical and lumbar spine with cervical and lumbar radiculopathy symptoms, sacroiliitis, bilateral hip pain, neck pain. Today she rates her pain a 7 out of 10. Patient denies any new trauma or injury. Patient denies any change to location or type of pain she experiences. She continues to experience significant, constant pain in her neck with radiating symptoms into her bilateral upper extremities. Patient does state this is an aching, throbbing sensation that does have numbness and tingling into her bilateral thumbs. Patient does state that this pain is interfering with her ability perform activities of daily living such as cooking or cleaning or even simple ambulation. Patient states she has difficulty even picking up things due to the numbness and tingling. Patient was previously submitted for a cervical epidural that she has had in the past that have done well providing more than 50% relief however her insurance denied it. She is currently managed with intrathecal morphine 1 mg/mL with a daily dose of 0. 2091 mg/day. Patient denies any side effects from this medication. She states that she has been using her bolus device and yet it still not helping her pain currently. Patient states she has been exercising more and up walking however it is making her pain symptoms worse. Patient has tried otgh-pkw-vapopal medications such as Tylenol and ibuprofen along with heat and ice and topicals with minimal relief. Patient has had physical therapy and continued to do at home exercises and stretching for longer than 12 weeks with minimal improvement. She is also managed with tizanidine 4 mg 3 times daily. Physical Exam: General: Alert and oriented x3, no acute distress, pleasant and cooperative Lungs: Respirations even and unlabored, symmetrical chest expansion Eyes: PERRL Musculoskeletal: Flexion and extension of cervical [spine] somewhat guarded secondary to pain, [antalgic gait noted] Neurological: Speech clear, no gross sensory deficit FINDINGS: Multiplanar MR imaging of the cervical spine was performed without contrast. On the sagittal T2-weighted images, disc degeneration is seen throughout. There is mild kyphosis centered on C5. There is no evidence of fracture. The vertebral alignment is normal. The cervical spinal cord has an unremarkable appearance without evidence of mass, edema or syrinx. No significant canal stenosis is identified. The cervicomedullary junction is normal. C2-3: There is no significant canal stenosis or neural foraminal narrowing. C3-4: Small right foraminal disc protrusion is present. There is no significant canal stenosis or neural foraminal narrowing. C4-5: An annular disc bulge is present. There is no significant canal stenosis or neural foraminal narrowing. C5-6: An annular disc bulge is present. There is left foraminal disc protrusion resulting in moderate left neural foraminal narrowing and left C6 nerve root impingement. C6-7: An annular disc bulge is present. There is a left paracentral disc protrusion with possible left C7 nerve root impingement C7-T1: There is no significant canal stenosis or neural foraminal narrowing. IMPRESSION: Left foraminal disc protrusion at C5-6 results in left C6 nerve impingement. Left paracentral disc protrusion at C6-7 with possible left C7 nerve root impingement. Multilevel degenerative disc disease as detailed above. Reviewed, Interpreted and Dictated by Maurice Mcdaniel I
[2023-06-15 11:57] VITALS: BP 145/92; PULSE 98; RESP 18; O2SAT 97; BMI 39.9
== END ==
LOC: SC.PAIN 10:52
PROVIDERS: PCP Physician Assistant; Visit Provider Nurse Practitioner Family
DX: M50.10 Cervical disc disorder with radiculopathy, unspecified cervical region (principal); M51.16 Intervertebral disc disorders with radiculopathy, lumbar region; Z97.8 Presence of other specified devices; M46.1 Sacroiliitis, not elsewhere classified; M25.551 Pain in right hip; M25.552 Pain in left hip
CPT/HCPCS: 62368; 99213; G0463

== ENCOUNTER → 2023-06-29 10:35 | Outpatient (POV) | payer OTHER, SELFPAY ==
--- NOTE | 2023-06-29 10:56 | EXP.PAIN.PRO ---
Procedure Date: 06/29/23 Time: 10:56 Anesthesiologist:: Yolie Pierre APRN Complications:: None Pre-procedure Diagnosis:: Degenerative disc disease of cervical and lumbar spine with cervical and lumbar radiculopathy symptoms Post-procedure Diagnosis:: Same Indications for Procedure:: Patient is a pleasant 43-year-old female who presents today for intrathecal pain pump adjustment and reprogram. The patient is being treated for degenerative disc disease of cervical and lumbar spine with cervical and lumbar radiculopathy symptoms. Patient is currently being managed with morphine 1 mg/mL with a daily dose of 0.2509 mg/day. Patient denies any side effects from this medication. Patient rates pain a 8 out of 10. She denies any new trauma or injury or any change location or type of pain that she experiences. Patient states that she continues to increase her activity however she does have more pain. Drug screen is appropriate. Amari [id number] has been reviewed and is appropriate. Physical exam General: Alert and oriented x3, no acute distress, pleasant and cooperative Lungs: Respirations even and unlabored, symmetrical chest expansion Eyes: PERRL Musculoskeletal: Flexion and extension of lumbar [spine] somewhat guarded secondary to pain, [antalgic gait noted] Neurological: Speech clear, no gross sensory deficit Procedure Details:: Informed consent was obtained and the risk and benefits of the procedure were explained to the patient. Patient was taken to the procedure room where noninvasive monitoring was placed including noninvasive blood pressure cuff and pulse oximeter. Patient's pump was interrogated and was reprogrammed to morphine 0.3011mg/day. The patient tolerated the procedure well with no complications. Plan and Disposition:: Patient tolerated her intrathecal increase with no complications and was discharged neurologically intact. We will see the patient back in the clinic at the next intrathecal refill. Patient has been instructed to contact the clinic with any concerns before the next appointment. Dr. Jimenez has reviewed this note and agrees with this plan of care. This note was dictated using voice recognition software and make contain errors or omissions. -- It Is medically necessary for this patient to continue to have their intrathecal pump refilled at regular intervals. This patient had an intrathecal pain pump implanted after meeting criteria of chronic intractable pain for greater than 3 months and failing conservative treatments. Patient has committed and been compliant to the treatment plan and all planned follow up care. Since implantation of the intrathecal pain pump, the patient has had decreased pain and been more functional. Oral medications have been reduced including intake of oral opioids. Patient continues to do well with intrathecal therapy with decrease in pain symptoms and increase in functional status. Stopping intrathecal medications can lead to life threatening withdrawal, seizures, cardiac arrest, severe pain, and possible . Pumps that are not refilled at regular intervals can be damages and cause and need for replacement. We continually titrate dose and concentration to optimize pain relief and function. We are limited in concentration for certain drugs to safely deliver medications through the pump and stay within the recommendations from the [employer] Guidelines. Depending on dose and concentration these pumps may need to be refilled sooner than 3 months as we titrate.
[2023-06-29 12:42] VITALS: BP 138/87; PULSE 107; RESP 18; O2SAT 99; BMI 39.9
== END | disposition home or self-care (01) ==
PROVIDERS: PCP Physician Assistant; Visit Provider Nurse Practitioner Family
DX: M50.10 Cervical disc disorder with radiculopathy, unspecified cervical region (principal); M51.16 Intervertebral disc disorders with radiculopathy, lumbar region; Z97.8 Presence of other specified devices
CPT/HCPCS: 62368; 99213; G0463

== ENCOUNTER 2023-07-01 10:09 | Emergency (ER) | payer OTHER, SELFPAY ==
[2023-07-01 10:10] VITALS: BP 118/64; PULSE 112; RESP 20; TEMP 36.7; O2SAT 98; BMI 39.9
--- NOTE | 2023-07-01 10:40 | EXP.UTC ---
Discharge Plan Disposition Patient Disposition: Still a Patient Condition: Undetermined Prescriptions Prescriptions: No Action cholecalciferol (vitamin D3) 50 mcg (2,000 unit) capsule 50 mcg PO DAILY pantoprazole 40 mg tablet,delayed release (DR/EC) 40 mg PO BID Linzess 290 mcg capsule 290 mcg PO DAILY sulfasalazine 500 mg tablet,delayed release (DR/EC) 0.5 g PO DAILY prednisone 5 mg tablet 5 mg PO . Horizant 600 mg tablet extended release 600 mg PO DIRECTED Humira Pen 40 mg/0.8 mL pen injector kit 40 mg SQ DIRECTED levocetirizine 5 mg tablet 5 mg PO DAILY clonazepam [Klonopin] 0.5 mg tablet 0.5 mg PO HS Qty: 30 0RF Rx Instructions: administer 30 minutes before bedtime hydrochlorothiazide 25 mg tablet 25 mg PO DAILY Qty: 90 3RF Rx Instructions: TAKE 1 TABLET BY MOUTH EVERY MORNING ferrous sulfate [FeroSul] 325 mg (65 mg iron) tablet 325 mg PO DAILY Rx Instructions: TAKE 1 TABLET BY MOUTH TWICE DAILY WITH FOOD tizanidine 4 mg tablet 4 mg PO TID Qty: 90 0RF fluticasone propionate 120 SPR/BOT bottle 1 spr NS DAILY Rx Instructions: each nostril daily montelukast 10 mg tablet 10 mg PO DAILY Rx Instructions: TAKE 1 TABLET BY MOUTH ONCE DAILY morphine (PF) 1 mg/mL Solution 1 mg intrathecal CONT Rx Instructions: REFER TO TELE READING FOR CURRENT DAILY DOSE topiramate [Topamax] 25 mg tablet 25 mg PO BID phentermine [Adipex-P] 37.5 mg tablet 37.5 mg PO DAILY Rx Instructions: must administer 30 minutes before or 1-2 hours after breakfast lisinopril 10 mg tablet 10 mg PO DAILY bupropion HCl [Wellbutrin XL] 150 mg tablet extended release 24 hr 150 mg PO DAILY Referrals Follow up/Referrals: Sarita Gómez PA [Primary Care Provider] - See instructions Discharge ED Provider: Sarita G[place] [facility] [place] General Stated complaint: back pain, poss kidney stones Mode of Arrival: Ambulatory Source of Information: Patient Limitations: No Limitations Time Seen by Provider: 07/01/23 10:47 Description of Symptoms (Recalled from Triage Doc. by RN): Patient reports having lower back pain. States she has a pain pump and she called and talked to her pain doctor who told her to come get checked for kidney stones. HEENT Symptoms (Recalled from RN notes): No Resp Symptoms (Recalled from RN notes): No Skin Symptoms (Recalled from RN notes): No MS Symptoms (Recalled from RN notes): Yes Functional Status (Recalled from RN notes): wnl History of Present Illness Provider Complaint: Patient presents with severe low back pain X 3-4 days. Patient has history of ankylosing spondylitis and as such has chronic back pain but this is different. She has a pain pump. Had meds increased 3 days ago. It has not touched the pain. Has white hot pain shooting up both sides of her spine. Cannot get comfortable. Had a fever of 101 yesterday. Called pain management doctor who told her to come to ER to be evaluated to kidney stones. She denies dysuria or hematuria. No recent epidural injections. Onset (ago): day(s) Location: back Radiation: non-radiation Quality: burning and sharp Consistency: constant Relieving factors: none Exacerbating factors: none Associated symptoms: fever/chills Treatments prior to arrival: none Related Data Home Medications Medication Instructions Recorded Confirmed cholecalciferol (vitamin D3) 50 50 mcg PO DAILY Supplement 11/24/21 06/29/23 mcg (2,000 unit) capsule fluticasone propionate 50 1 spr intranasal DAILY Allergy 01/03/22 06/29/23 mcg/actuation nasal symptoms spray,suspension montelukast 10 mg tablet 10 mg PO DAILY ALLERGIES 08/08/22 06/29/23 pantoprazole 40 mg tablet,delayed 40 mg PO BID GERD 08/16/22 06/29/23 release linaclotide 290 mcg capsule 290 mcg PO DAILY constipation 01/24/23 06/29/23 (Linzess) ferrous sulfat
[2023-07-01 10:48] LABS: Microscopic, Urine URINE MICROSCOPIC (MICROSCOPIC)
[2023-07-01 10:50] LABS: Appearance,Urine CLEAR (Clear); Bilirubin,Urine Negative (Negative); Blood, Urine Negative (Negative); Color,Urine YELLOW (Yellow); Glucose,Urine (UA) Negative (Negative); Ketones,Urine Negative (Negative); Leukocyte Esterase,Urine Negative (Negative); Nitrate,Urine Negative (Negative); Protein,Urine Negative (Negative); Specific Gravity, Urine 1.025 (1.005-1.030)
[2023-07-01 11:00] LABS: Bacteria,Urine Trace /lpf
--- NOTE | 2023-07-01 11:05 | PC.NURSE ---
DR HUIZAR AT BEDSIDE TO EVALUATE PT
[2023-07-01 11:11] VITALS: BP 128/84; PULSE 115; RESP 18; TEMP 36.5; O2SAT 100; BMI 39.9
--- NOTE | 2023-07-01 11:12 | XR_ITS ---
PROCEDURE INFORMATION: Exam: XR Chest Exam date and time: 07/01/2023 11:16 AM Age: 43 years old Clinical indication: Dyspnea TECHNIQUE: Imaging protocol: Radiologic exam of the chest. Views: 1 view. COMPARISON: CR XR CHEST 2V 02/26/2023 10:15 PM FINDINGS: Lungs: Unremarkable. No consolidation. Pleural spaces: Unremarkable. No pleural effusion. No pneumothorax. Heart/Mediastinum: Unremarkable. No cardiomegaly. Bones/joints: Unremarkable. IMPRESSION: No acute findings.
--- NOTE | 2023-07-01 11:15 | HMH.EDGENADL ---
Discharge Plan Disposition Patient Disposition: Still a Patient Condition: Undetermined Prescriptions Prescriptions: No Action cholecalciferol (vitamin D3) 50 mcg (2,000 unit) capsule 50 mcg PO DAILY pantoprazole 40 mg tablet,delayed release (DR/EC) 40 mg PO BID Linzess 290 mcg capsule 290 mcg PO DAILY sulfasalazine 500 mg tablet,delayed release (DR/EC) 0.5 g PO DAILY prednisone 5 mg tablet 5 mg PO . Horizant 600 mg tablet extended release 600 mg PO DIRECTED Humira Pen 40 mg/0.8 mL pen injector kit 40 mg SQ DIRECTED levocetirizine 5 mg tablet 5 mg PO DAILY clonazepam [Klonopin] 0.5 mg tablet 0.5 mg PO HS Qty: 30 0RF Rx Instructions: administer 30 minutes before bedtime hydrochlorothiazide 25 mg tablet 25 mg PO DAILY Qty: 90 3RF Rx Instructions: TAKE 1 TABLET BY MOUTH EVERY MORNING ferrous sulfate [FeroSul] 325 mg (65 mg iron) tablet 325 mg PO DAILY Rx Instructions: TAKE 1 TABLET BY MOUTH TWICE DAILY WITH FOOD tizanidine 4 mg tablet 4 mg PO TID Qty: 90 0RF fluticasone propionate 120 SPR/BOT bottle 1 spr NS DAILY Rx Instructions: each nostril daily montelukast 10 mg tablet 10 mg PO DAILY Rx Instructions: TAKE 1 TABLET BY MOUTH ONCE DAILY morphine (PF) 1 mg/mL Solution 1 mg intrathecal CONT Rx Instructions: REFER TO TELE READING FOR CURRENT DAILY DOSE topiramate [Topamax] 25 mg tablet 25 mg PO BID phentermine [Adipex-P] 37.5 mg tablet 37.5 mg PO DAILY Rx Instructions: must administer 30 minutes before or 1-2 hours after breakfast lisinopril 10 mg tablet 10 mg PO DAILY bupropion HCl [Wellbutrin XL] 150 mg tablet extended release 24 hr 150 mg PO DAILY Referrals Follow up/Referrals: Sarita Gómez PA [Primary Care Provider] - See instructions Activity Restrictions/Add. Instructions Additional Instructions/Restrictions: There is no evidence of a serious bacterial infection at the moment specifically osteomyelitis or epidural abscess. If you develop any neurologic symptoms such as lower extremity weakness urinary or bowel incontinence numbness between your legs or paralysis please return. Or if you are running a high fever that you cannot control with Tylenol or ibuprofen at home. With your headache and your fever is possibly have a viral syndrome that predispose you to have some myalgias superimposed on your chronic back pain. Cannot rule out dysfunction of your pain pump as well. Please follow-up with your pain specialist with that. There is no blood in your urine this is not consistent with a kidney stone. Return with any other concerns. Clinical Impressions Clinical Impression: Myalgia, Acute viral syndrome Instructions Patient Instructions: DI for Low Back Pain Discharge ED Provider: Sarita Gómez General Adult HPI General Chief complaint: Back Pain/Injury Stated complaint: back pain, poss kidney stones Time Seen by Provider: 07/01/23 10:47 Mode of Arrival: Ambulatory Source of Information: Patient Limitations: No Limitations Description of Symptoms (Recalled from ER Triage Doc. by RN): Patient reports having lower back pain. States she has a pain pump and she called and talked to her pain doctor who told her to come get checked for kidney stones. History of Present Illness HPI narrative: Patient is a 43-year-old female here with back pain fevers and headache. States she has chronic back pain had this for years until she got a pain pump with Dr. Jimenez 5 months ago at which point she has had no back pain up until recently. States on Monday she started to have a headache and began to feel poor and has had a fever Tmax of 101 at home. She subsequently has had significant worsening of her back pain she describes it as bilateral not in the midline in her thoracic and lumbar spine. There is no radiation no hematuria no ur
[2023-07-01 11:22] LABS: Coronavirus 19, PCR Not Detected (NotDetected); Influenza A, PCR Not Detected (NotDetected); Influenza B, PCR Not Detected (NotDetected)
--- NOTE | 2023-07-01 11:33 | PC.NURSE ---
rounded on pt nothing needed at this time,call light at bs
[2023-07-01 11:35] LABS: Basophils % 0.6 % (0.1-2.0); Eosinophils # 0.2 K/mm3 (0.0-0.4); Eosinophils % 3.3 % (0.1-12.0); Hematocrit 47.2 % (37.0-47.0); Hemoglobin 15.2 g/dL (12.2-16.2); Lymphocytes # 2.4 K/mm3 (0.7-4.5); Lymphocytes % 35.3 % (10-50); Mean Corpuscular HGB Conc 32.2 g/dL (31.8-35.4); Mean Corpuscular Hemoglobin 29.7 pg (27.0-31.2); Mean Corpuscular Volume 92.4 fl (81-99); Mean Platelet Volume 8.4 fl (7.4-10.4); Monocytes # 0.5 K/mm3 (0.1-1.0); Monocytes % 6.5 % (1.7-9.3); Neutrophils # 3.7 K/mm3 (1.8-7.8); Neutrophils % 54.3 % (37.0-80.0); Platelet Count 334 K/mm3 (142-424); Red Cell Distribution Width 12.6 % (11.5-17.5); White Blood Count 6.9 K/mm3 (4.8-10.8)
[2023-07-01 11:36] LABS: Chloride 99 mmol/L (98-107)
[2023-07-01 11:37] LABS: Potassium 4.1 mmoL/L (3.5-5.1); Sodium 138 mmol/L (136-145)
[2023-07-01 11:39] LABS: Blood Urea Nitrogen 17 mg/dl (7-17)
[2023-07-01 11:40] LABS: Alanine Aminotransferase 22 U/L (12-78); Albumin Level 4.8 g/dl (3.5-5.0); Albumin/Globulin Ratio 1.4 (1.1-1.8); Alkaline Phosphatase 90 U/L (38-126); Anion Gap 16.1 mEq/L (5-15); Aspartate Amino Transferase 28 U/L (14-36); Bilirubin,Total 1.1 mg/dl (0.2-1.3); Carbon Dioxide 27 mmol/L (22.0-30.0); Creatinine Clearance Estimated 116 mL/min (50-200); Estimated Glomerular Filt Rate 55 ml/min (>60); GFR (African American) 66 ML/MIN (>60); Globulin 3.5 g/dL (1.3-3.2); Glucose 97 mg/dl (74-100); Total Protein,Serum 8.3 g/dl (6.3-8.2)
[2023-07-01 11:44] LABS: Lactic Acid 0.9 mmol/L (0.7-2.1)
[2023-07-01 11:58] LABS: Erythrocyte Sedimentation Rate 1 mm/hr (0-20)
--- NOTE | 2023-07-01 12:03 | PC.NURSE ---
DR HUIZAR AT BEDSIDE TO UPDATE PT
--- NOTE | 2023-07-01 12:05 | PC.NURSE ---
DR HUIZAR NOTIFIED THAT 1 SET OF BLOOD CULTURES DRAWN, PT DOES NOT NEED SECOND SET DRAWN
[2023-07-01 12:09] VITALS: BP 110/67; PULSE 95; RESP 17; TEMP 36.6; O2SAT 99
--- NOTE | 2023-07-01 12:11 | PC.NURSE ---
pt given d/c information at this time, she is awaiting her to come get her
[2023-07-01 12:23] LABS: C-Reactive Protein 7.5 mg/L (0-4)
== END 2023-07-01 12:38 | disposition still patient (30) ==
LOC: UTC 10:49 → ER 11:01
PROVIDERS: Student in an Organized Health Care Education/Training Program; Emergency Provider Physician Assistant; PCP Physician Assistant
DX: M54.50 Low back pain, unspecified (principal); R51.9 Headache, unspecified; R50.9 Fever, unspecified; B34.9 Viral infection, unspecified; M45.9 Ankylosing spondylitis of unspecified sites in spine; F41.9 Anxiety disorder, unspecified; I10 Essential (primary) hypertension; E66.01 Morbid (severe) obesity due to excess calories; G62.9 Polyneuropathy, unspecified
CPT/HCPCS: 71045; 80053; 81001; 83605; 85025; 85651; 86140; 87040; 87086; 87636; 96361; 96374; 96375; 99285; J0131; J2405

== ENCOUNTER → 2023-07-03 10:00 | Outpatient (POV) | payer OTHER, SELFPAY ==
--- NOTE | 2023-07-03 10:38 | EXP.PAIN.PRO ---
Procedure Date: 07/03/23 Time: 10:38 Anesthesiologist:: Yolie Pierre APRN Complications:: None Pre-procedure Diagnosis:: Degenerative disc disease of cervical and lumbar spine with cervical and lumbar radiculopathy symptoms Post-procedure Diagnosis:: Same Indications for Procedure:: Patient is a pleasant 43-year-old female who presents today for worsening pain and intrathecal adjustment and reprogram. We are currently treating the patient for degenerative disc disease of cervical and lumbar spine with cervical and lumbar radiculopathy symptoms. Today she rates her pain a 10 out of 10. Patient states that she has been experiencing worsening pain in her low back that shoots up towards her mid back. Patient denies any new injury or trauma. She states that the pain does feel different and that it goes along both of her sides and describes it as a aching, throbbing sensation. Patient does states she has limited range of motion due to the pain. Patient states that she did go to the ER for evaluation however had no acute findings. Patient does state that they did a UA and she was negative for any urinary tract infection or kidney stones. Patient is currently managed with morphine 1 mg/mL with a daily dose of 0.3011 mg/day. She denies any side effects from this medication. At our last visit when we did increase her she stated that she did not notice any improvement. Her Amari has been reviewed and is appropriate. Physical Exam: General: Alert and oriented x3, no acute distress, pleasant and cooperative Lungs: Respirations even and unlabored, symmetrical chest expansion Eyes: PERRL Musculoskeletal: Flexion and extension of lumbar [spine] somewhat guarded secondary to pain, [antalgic gait noted] Neurological: Speech clear, no gross sensory deficit Procedure Details:: Informed consent was obtained and the risk and benefits of the procedure were explained to the patient. Patient was taken to the procedure room where noninvasive monitoring was placed including noninvasive blood pressure cuff and pulse oximeter. Patient's pump was interrogated and was reprogrammed to morphine 0.3318 mg/day. The patient tolerated the procedure well with no complications. Plan and Disposition:: Patient continues to experience significant pain in her low back with limited range of motion. I have counseled the patient due to the change of sensations and worsening pain, I am concerned that there is a chance of possible compression fracture. I have reviewed over possible urinary symptoms for possible kidney stones however patient denies any of the symptoms. I have counseled the patient that I will order a CT of her lumbar spine without contrast to rule out possible compression fractures and we will also order KUB x-ray to rule out kidney stones. Patient will return to clinic following her imaging for reevaluation of symptoms and plan of care. Patient tolerated her intrathecal increase with no complications and was discharged neurologically intact. Patient has been instructed to contact the clinic with any concerns before the next appointment. Dr. Jimenez has reviewed this note and agrees with this plan of care. This note was dictated using voice recognition software and make contain errors or omissions. -- It Is medically necessary for this patient to continue to have their intrathecal pump refilled at regular intervals. This patient had an intrathecal pain pump implanted after meeting criteria of chronic intractable pain for greater than 3 months and failing conservative treatments. Patient has committed and been compliant to the treatment plan and all planned follow up care. Since implantation of the intrathecal pain pump, the patient has had decreased pain and been more functional. Oral medications have been reduced including intake of oral opioids. Patient continues to do well with intrathecal therapy with decrease in pain symptoms and increase in functional status. Stopp
[2023-07-03 10:45] VITALS: BP 153/100; PULSE 130; RESP 19; O2SAT 97; BMI 39.6
== END ==
PROVIDERS: Visit Provider Nurse Practitioner Family
DX: M50.10 Cervical disc disorder with radiculopathy, unspecified cervical region (principal); M51.16 Intervertebral disc disorders with radiculopathy, lumbar region
CPT/HCPCS: 62368; 99213; G0463

== ENCOUNTER → 2023-07-03 10:48 | Outpatient (CLI) | payer OTHER, SELFPAY ==
--- NOTE | 2023-07-03 10:55 | XR_ITS ---
FINAL REPORT CLINICAL HISTORY: BACK PAIN, r/o kidney stone COMPARISON: None FINDINGS: ABDOMEN SINGLE VIEW / KUB A single view of the abdomen was obtained with a coned down view of the pelvis. Stimulator device is noted in the right hemiabdomen. There are surgical clips in the right upper quadrant, probably related to prior cholecystectomy. There is a nonspecific bowel gas pattern. There is no significant stool burden. There are no abnormally dilated loops of small bowel. No abnormal calcification is identified. IMPRESSION: No acute process. No evidence of kidney stone. Reviewed, Interpreted and Dictated by José Luis Muñiz MD Transcribed by Jerri Geiger Authenticated and . [facility]
== END ==
LOC: RAD 10:50
PROVIDERS: PCP Physician Assistant; Visit Provider Nurse Practitioner Family
DX: M54.50 Low back pain, unspecified (principal)
CPT/HCPCS: 74018

== ENCOUNTER 2023-07-05 16:34 | Inpatient (IN) | payer OTHER, SELFPAY ==
[2023-07-05] VITALS (10 sets, daily range): BP systolic 123–147; BP diastolic 77–92; PULSE 84–128; RESP 16–18; TEMP 36.3–36.6; O2SAT 95–100; BMI 39.9
--- NOTE | 2023-07-05 17:29 | HMH.EDGENADL ---
Discharge Plan Disposition Patient Disposition: Admitted Condition: Fair Clinical Impressions Clinical Impression: Intractable abdominal pain, Acute proctitis Discharge ED Provider: Yolie Leos General Adult HPI <Da Anderson MD - Last Filed: 07/06/23 01:47> General Chief complaint: Abdominal Pain Stated complaint: sent by teri Harding bowel obstruct Time Seen by Provider: 07/05/23 17:29 Mode of Arrival: Wheelchair Source of Information: Patient Limitations: No Limitations Description of Symptoms (Recalled from ER Triage Doc. by RN): PT C/O LEFT LOWER ABDOMINAL PAIN, PT WITH ONGOING BACK PAIN, PT STATES NO BM FOR 9 DAYS, DID TAKE A SUPPOSITORY THIS AM WITHOUT RESULTS History of Present Illness HPI narrative: Patient presents for evaluation of 9 days of constipation with associated nausea and NBNB vomiting. Patient complains of associated gradual in onset, constant, worsening diffuse however principally suprapubic abdominal pain without associated dysuria or frequency. She has had similar symptoms before that have resolved with p.o. laxatives. Denies any back pain or fevers or chills denies any back trauma. Denies ability to pass flatus. Previous therapies include anba-abg-[id number] suppository which did not result in bowel movement. Of note patient has extensive abdominal surgical history including appendectomy, cholecystectomy, hysterectomy, gastric sleeve.No confusion or chest pain or palpitations. Pain is described as severe and nonradiating. No leg pain or saddle anesthesia or incontinence of urine Related Data Home Medications Medication Instructions Recorded Confirmed cholecalciferol (vitamin D3) 50 50 mcg PO DAILY Supplement 11/24/21 07/03/23 mcg (2,000 unit) capsule fluticasone propionate 50 1 spr intranasal DAILY Allergy 01/03/22 07/03/23 mcg/actuation nasal symptoms spray,suspension montelukast 10 mg tablet 10 mg PO DAILY ALLERGIES 08/08/22 07/03/23 pantoprazole 40 mg tablet,delayed 40 mg PO BID GERD 08/16/22 07/03/23 release linaclotide 290 mcg capsule 290 mcg PO DAILY constipation 01/24/23 07/03/23 (Linzess) ferrous sulfate 325 mg (65 mg 325 mg PO DAILY Supplement 01/26/23 07/03/23 iron) tablet (FeroSul) morphine (PF) 1 mg/mL injection 1 mg intrathecal CONT Pain 02/03/23 07/03/23 solution sulfasalazine 500 mg 0.5 g PO DAILY . 05/05/23 07/03/23 tablet,delayed release adalimumab 40 mg/0.8 mL 40 mg SQ DIRECTED Diabetes 06/26/23 07/03/23 subcutaneous pen kit (Humira Pen) gabapentin enacarbil 600 mg 600 mg PO DIRECTED Pain 06/26/23 07/03/23 tablet,extended release (Horizant ER) levocetirizine 5 mg tablet 5 mg PO DAILY ALLERGIES 06/26/23 07/03/23 prednisone 5 mg tablet 5 mg PO . . 06/26/23 07/03/23 bupropion HCl 150 mg 24 hr tablet, 150 mg PO DAILY MOOD 06/29/23 07/03/23 extended release (Wellbutrin XL) lisinopril 10 mg tablet 10 mg PO DAILY BLOOD PRESSURE 06/29/23 07/03/23 phentermine 37.5 mg tablet 37.5 mg PO DAILY Weight Loss 06/29/23 07/03/23 (Adipex-P) topiramate 25 mg tablet (Topamax) 25 mg PO BID MIGRAINES 06/29/23 07/03/23 mecobalamin (vitamin B12) 10,000 10,000 mcg SQ WEEKLY 07/05/23 07/05/23 mcg solution for injection Previous Rx's Medication Instructions Recorded hydrochlorothiazide 25 mg tablet 25 mg PO DAILY bp #90 tabs 02/22/23 tizanidine 4 mg tablet 4 mg PO TID muscle spasms #90 tabs 06/12/23 clonazepam 0.5 mg tablet (Klonopin) 0.5 mg PO HS Anxiety #30 tabs 06/26/23 Allergies Allergy/AdvReac Type Severity Reaction Status Date / Time cefaclor [CEFACLOR] Allergy Unknown Verified 07/05/23 10:04 Penicillins [PENICILLINS] Allergy Unknown Verified 07/05/23 10:04 Cephalosporins Allergy Verified 07/05/23 10:04 trazodone AdvReac Severe Hallucinati Verified 07/05/23 10:04 ng amlodipine AdvReac Mild edema Verified 07/05/23 10:04 [facility] <Da Anderson MD - Last Filed: 07/06/23 01:47> [facility] Disclaimer: The information contained in this
--- NOTE | 2023-07-05 17:37 | PC.NURSE ---
Dr. Anderson at [facility]
--- NOTE | 2023-07-05 17:39 | CT_ITS ---
PROCEDURE INFORMATION: Exam: CT Abdomen And Pelvis With Contrast Exam date and time: 07/05/2023 6:15 PM Age: 43 years old Clinical indication: Abdominal pain; Generalized; Prior surgery; Surgery date: 6+ months; Surgery type: Pain pump; Additional info: Obstipation, diffuse abdominal pain TECHNIQUE: Imaging protocol: Computed tomography of the abdomen and pelvis with contrast. Radiation optimization: All CT scans at this facility use at least one of these dose optimization techniques: automated exposure control; mA and/or kV adjustment per patient size (includes targeted exams where dose is matched to clinical indication); or iterative reconstruction. Contrast material: ISOVUE; Contrast volume: 75 ml; Contrast route: IV; REPORTING DATA: Count of CT and Cardiac NM exams in prior 12 months: This patient has received 6 known CTs and 0 known cardiac nuclear medicine studies in the 12 months prior to the current study. COMPARISON: CT ABDOMEN PELVIS WO CON 11/22/2022 8:03 AM FINDINGS: Tubes, catheters and devices: Implantable right flank intrathecal catheter device terminating within the thoracic spinal canal. Coronary arteries: Coronary artery calcifications. Liver: Normal. No mass. Gallbladder and bile ducts: Postsurgical changes of cholecystectomy with expected mild biliary ductal dilatation. Pancreas: Normal. No ductal dilation. Spleen: Normal. No splenomegaly. Adrenal glands: Normal. No mass. Kidneys and ureters: Subcentimeter hypodense focus within the left kidney interpolar region, too small to fully characterize, may represent a cyst or angiomyolipoma. Stomach and bowel: Postsurgical changes of gastric bypass. Normal caliber. No wall thickening. Appendix: Postsurgical changes of appendectomy. Intraperitoneal space: Unremarkable. No free air. No significant fluid collection. Vasculature: Unremarkable. No abdominal aortic aneurysm. Lymph nodes: Unremarkable. No enlarged lymph nodes. Urinary bladder: Unremarkable as visualized. Reproductive: Unremarkable as visualized. Bones/joints: No acute osseous findings. Soft tissues: Unremarkable. IMPRESSION: No acute intra-abdominal findings.
[2023-07-05 17:52] LABS: Basophils # 0.1 K/mm3 (0-0.2); Basophils % 0.6 % (0.1-2.0); Eosinophils # 0.3 K/mm3 (0.0-0.4); Eosinophils % 2.7 % (0.1-12.0); Hematocrit 48.3 % (37.0-47.0); Hemoglobin 16.3 g/dL (12.2-16.2); Lymphocytes # 3.7 K/mm3 (0.7-4.5); Lymphocytes % 38.2 % (10-50); Mean Corpuscular HGB Conc 33.7 g/dL (31.8-35.4); Mean Corpuscular Hemoglobin 29.5 pg (27.0-31.2); Mean Corpuscular Volume 87.6 fl (81-99); Mean Platelet Volume 8.6 fl (7.4-10.4); Monocytes # 0.8 K/mm3 (0.1-1.0); Monocytes % 7.8 % (1.7-9.3); Neutrophils # 4.9 K/mm3 (1.8-7.8); Neutrophils % 50.7 % (37.0-80.0); Platelet Count 358 K/mm3 (142-424); Red Blood Count 5.51 M/mm3 (4.20-5.40); Red Cell Distribution Width 12.2 % (11.5-17.5); White Blood Count 9.6 K/mm3 (4.8-10.8)
[2023-07-05 17:56] LABS: Alanine Aminotransferase 24 U/L (12-78); Albumin Level 5.3 g/dl (3.5-5.0); Albumin/Globulin Ratio 1.3 (1.1-1.8); Alkaline Phosphatase 99 U/L (38-126); Anion Gap 16.2 mEq/L (5-15); Aspartate Amino Transferase 38 U/L (14-36); Blood Urea Nitrogen 14 mg/dl (7-17); Calcium 9.7 mg/dl (8.4-10.2); Carbon Dioxide 28 mmol/L (22.0-30.0); Chloride 94 mmol/L (98-107); Creatinine Clearance Estimated 141 mL/min (50-200); Estimated Glomerular Filt Rate 69 ml/min (>60); GFR (African American) 83 ML/MIN (>60); Globulin 4.1 g/dL (1.3-3.2); Glucose 104 mg/dl (74-100); Lipase 75 U/L (23-300); Potassium 3.2 mmoL/L (3.5-5.1); Sodium 135 mmol/L (136-145); Total Protein,Serum 9.4 g/dl (6.3-8.2)
[2023-07-05 18:16] LABS: HCG Qualitative, Serum Negative (Negative)
--- NOTE | 2023-07-05 18:17 | PC.NURSE ---
pt to CT
--- NOTE | 2023-07-05 19:00 | PC.NURSE ---
Rounded on patient; checked IV placement per patient's request. IV patent; call smith within reach of patient
--- NOTE | 2023-07-05 20:26 | PC.NURSE ---
Spoke with MD about plan of care for patient; MD suggestive of an enema. MD stated he will discuss this option with patient
--- NOTE | 2023-07-05 21:04 | PC.NURSE ---
rounded on patient; enema completed informed patient to call out when she needs to go to the bathroom. Call smith within reach of patient. Warm blanket provided
--- NOTE | 2023-07-05 22:45 | PC.NURSE ---
on phone with hospitalist.
--- NOTE | 2023-07-05 22:46 | PC.NURSE ---
PATIENT ADMITTED OBSERVATION TO 203 WITH DX OF CONSTIPATION TO SERVICE OF HOSPITALIST.
--- NOTE | 2023-07-05 23:00 | PC.NURSE ---
and Hospitalist @ [facility]
--- NOTE | 2023-07-05 23:17 | CT_ITS ---
PROCEDURE INFORMATION: Exam: CTA Abdomen and Pelvis With Contrast Exam date and time: 07/05/2023 11:53 PM Age: 43 years old Clinical indication: Abdominal pain; Generalized; Additional info: Severe abdominal pain TECHNIQUE: Imaging protocol: Computed tomographic angiography of the abdomen and pelvis with contrast. Exam focused on the arteries. 3D rendering (Not supervised by radiologist): MIP and/or 3D reconstructed images were created by the technologist. Radiation optimization: All CT scans at this facility use at least one of these dose optimization techniques: automated exposure control; mA and/or kV adjustment per patient size (includes targeted exams where dose is matched to clinical indication); or iterative reconstruction. Contrast material: ISOVUE; Contrast volume: 100 ml; Contrast route: INTRAVENOUS (IV); REPORTING DATA: Count of CT and Cardiac NM exams in prior 12 months: This patient has received 6 known CTs and 0 known cardiac nuclear medicine studies in the 12 months prior to the current study. COMPARISON: CT ABDOMEN PELVIS W CON 07/05/2023 6:15 PM FINDINGS: Tubes, catheters and devices: Implantable right flank intrathecal catheter device terminating within the thoracic spinal canal. Aorta: No aortic aneurysm. No aortic dissection. Celiac trunk and mesenteric arteries: No occlusion or significant stenosis. Renal arteries: No occlusion or significant stenosis. Right iliac arteries: No occlusion or significant stenosis. Left iliac arteries: No occlusion or significant stenosis. Liver: No mass. Gallbladder and bile ducts: Postsurgical changes of cholecystectomy with expected mild biliary ductal dilatation. Pancreas: Unremarkable. No mass. No ductal dilation. Spleen: Unremarkable. No splenomegaly. Adrenal glands: Unremarkable. No mass. Kidneys and ureters: Subcentimeter hypodense focus within the left kidney interpolar region, too small to fully characterize, may represent a cyst or angiomyolipoma. Stomach and bowel: Postsurgical changes of gastric bypass. Nondistended fluid-filled sigmoid colon and rectum. Normal caliber. No wall thickening. Appendix: Postsurgical changes of appendectomy. Intraperitoneal space: Unremarkable. No free air. No significant fluid collection. Lymph nodes: Unremarkable. No enlarged lymph nodes. Urinary bladder: Unremarkable. No mass. Reproductive: Unremarkable as visualized. Bones/joints: No acute fracture. Soft tissues: Unremarkable. IMPRESSION: 1. Unremarkable CTA of the abdomen and pelvis. No aneurysm or dissection. 2. Nondistended fluid-filled sigmoid colon and rectum, a nonspecific finding, although can be seen with an infectious proctocolitis.
--- NOTE | 2023-07-05 23:17 | CT_ITS ---
PROCEDURE INFORMATION: Exam: CT Lumbar Spine Without Contrast Exam date and time: 07/05/2023 11:49 PM Age: 43 years old Clinical indication: Low back pain; Additional info: Severe abdominal pain, preceeded by back pain TECHNIQUE: Imaging protocol: Computed tomography of the lumbar spine without contrast. Radiation optimization: All CT scans at this facility use at least one of these dose optimization techniques: automated exposure control; mA and/or kV adjustment per patient size (includes targeted exams where dose is matched to clinical indication); or iterative reconstruction. REPORTING DATA: Count of CT and Cardiac NM exams in prior 12 months: This patient has received 6 known CTs and 0 known cardiac nuclear medicine studies in the 12 months prior to the current study. COMPARISON: MR LUMBAR SPINE WO CON 07/27/2022 10:55 AM FINDINGS: Tubes, catheters and devices: Right flank intrathecal pump with catheter passing between the L4-L5 interspinous space and coursing within the spinal canal towards the thoracic spine. Bones/joints: Unchanged mild concavity of the L2 superior endplate remaining lumbar vertebrae normal in height. 4 mm anterolisthesis L4 on L5. Normal alignment otherwise. L4 limbus vertebrae. No acute fracture. Multilevel degenerative changes with notable severe L4-L5 facet arthropathy and S1 superior endplate sclerosis. No severe neural foraminal narrowing or spinal canal stenosis. Soft tissues: Unremarkable. IMPRESSION: No acute osseous abnormality of the lumbar spine.
--- NOTE | 2023-07-05 23:17 | CT_ITS ---
PROCEDURE INFORMATION: Exam: CT Thoracic Spine Without Contrast Exam date and time: 07/05/2023 11:46 PM Age: 43 years old Clinical indication: Pain in thoracic spine; Additional info: Severe abdominal pain, preceeded by back pain TECHNIQUE: Imaging protocol: Computed tomography of the thoracic spine without contrast. Radiation optimization: All CT scans at this facility use at least one of these dose optimization techniques: automated exposure control; mA and/or kV adjustment per patient size (includes targeted exams where dose is matched to clinical indication); or iterative reconstruction. REPORTING DATA: Count of CT and Cardiac NM exams in prior 12 months: This patient has received 6 known CTs and 0 known cardiac nuclear medicine studies in the 12 months prior to the current study. COMPARISON: MR THORACIC SPINE WO CON 10/05/2022 2:47 PM FINDINGS: Bones/joints: Thoracic vertebrae normal in height. Minimal rightward curvature. No acute fracture. Minimal scattered endplate degenerative changes. No significant neural foraminal narrowing or spinal canal stenosis. Soft tissues: Unremarkable. IMPRESSION: No acute osseous findings of the thoracic spine.
--- NOTE | 2023-07-05 23:25 | PC.NURSE ---
Rounded on patient; patient still in pain. Will notify
[2023-07-06] VITALS (14 sets, daily range): BP systolic 103–127; BP diastolic 53–77; PULSE 80–118; RESP 15–20; TEMP 36.5–37.2; O2SAT 96–100; BMI 41.2
[2023-07-06 01:20] LABS: Microscopic, Urine URINE MICROSCOPIC (MICROSCOPIC)
[2023-07-06 01:35] LABS: Appearance,Urine Clear (Clear); Color,Urine Yellow (Yellow); PH,Urine 6.5 (5.0-8.5); Protein,Urine Negative (Negative); Specific Gravity, Urine <= 1.005 (1.005-1.030)
[2023-07-06 01:36] LABS: Bilirubin,Urine Negative (Negative); Blood, Urine Negative (Negative); Glucose,Urine (UA) Negative (Negative); Ketones,Urine Negative (Negative); Leukocyte Esterase,Urine Negative (Negative); Nitrate,Urine Negative (Negative); Urobilinogen,Urine 0.2 EU/dl (0.2)
[2023-07-06 01:43] LABS: Bacteria,Urine 1+ /lpf; Mucus,Urine 1+ /lpf; Squamous Epithelial Cell,Urine TNTC #/hpf (0-5)
--- NOTE | 2023-07-06 01:48 | EXP.HP ---
History of Present Illness *Admission Date: 07/06/23 *Reason for visit:: abd pain *History of present illness: This is a 50 yo morbidly obese patient with PMHx of multilevel degenerative spine disease, with intrathecal pain pump and implanted neuro-stimulator presented to ER for evaluation of 9 days of constipation with associated nausea and vomiting. Patient complains of associated gradual in onset, constant, worsening diffuse however principally suprapubic abdominal pain without associated dysuria or frequency. Patient visited many diferent providers, including coming to ER yesterday and does not experiemented any release. She has had similar symptoms before that have resolved with p.o. laxatives. this time pain is 10/10 and constant. Denies any back pain or fevers or chills denies any back trauma. Denies ability to pass flatus. Previous therapies include cwyx-aav-vnpxixt suppository which did not result in bowel movement. Of note patient has extensive abdominal surgical history including appendectomy, cholecystectomy, hysterectomy, gastric sleeve.No confusion or chest pain or palpitations. Pain is described as severe and nonradiating. No leg pain or saddle anesthesia or incontinence of urine. Admitted for further work up. [facility] Disclaimer: The information contained in this section may have been updated after the patient was seen, as this information can be updated by other users. Medical History (Updated 07/06/23 @ 06:05 by Silvio Suarez APRN) Ankylosing spondylitis Anxiety Barretts esophagus Body mass index (BMI) of 40.1 to 44.9 in adult Constipation Hypertension Morbid obesity Neuropathic pain RLQ abdominal pain Surgical History History of appendectomy History of bilateral knee replacement History of cholecystectomy History of hysterectomy including cervix History of tonsillectomy Hx of gastric bypass Hx of tubal ligation Family History Other Cancer Coronary artery disease Diabetes Hypertension Social History Smoking Status: Never smoker second hand exposure: No alcohol intake: never substance use type: denies use current occupational status: other Travel in the last 8 weeks: None household members: significant other and children housing: house lives independently: Yes marital status: life partner education level: high school service: No shelter: No current occupation: [employer] current occupational exposures/hazards: No caffeine: Yes physical activity: walking frequency: 5-6 times per week do you feel safe at home: Yes victim of physical abuse: No victim of emotional abuse: No victim of sexual abuse: No would you like helpful sources: No Review of Systems Review of Systems Review of systems:: pertinent systems reviewed and negative unless documented below Meds Home Medications and Allergies Home Medications Medication Instructions Recorded Confirmed Type cholecalciferol (vitamin D3) 50 50 mcg PO DAILY Supplement 11/24/21 07/06/23 History mcg (2,000 unit) capsule fluticasone propionate 50 1 spr intranasal DAILY Allergy 01/03/22 07/06/23 History mcg/actuation nasal symptoms spray,suspension montelukast 10 mg tablet 10 mg PO PM Allergy Symptoms 08/08/22 07/06/23 History pantoprazole 40 mg tablet,delayed 40 mg PO BID Acid Reflux 08/16/22 07/06/23 History release linaclotide 290 mcg capsule 290 mcg PO DAILY constipation 01/24/23 07/06/23 History (Linzess) ferrous sulfate 325 mg (65 mg 325 mg PO DAILY Supplement 01/26/23 07/06/23 History iron) tablet (FeroSul) morphine (PF) 1 mg/mL injection 1 mg intrathecal CONT Pain 02/03/23 07/06/23 History solution sulfasalazine 500 mg 500 mg PO DAILY inflammation 05/05/23 07/06/23 History tablet,delayed rele
--- NOTE | 2023-07-06 02:18 | PC.NURSE ---
Report called to ZHANG Duran
--- NOTE | 2023-07-06 02:19 | PC.NURSE ---
0210 RECEIVED PHONE REPORT FROM JANEEN Hung RN/ED NURSE. PATIENT IS A 43 YO FEMALE WITH ADMISSION DIAGNOSIS OF INTRACTABLE ABDOMINAL PAIN WITH VOMITING.
--- NOTE | 2023-07-06 02:28 | PC.NURSE ---
pt arrived to floor at this time
--- NOTE | 2023-07-06 05:17 | PC.NURSE ---
patient arrived to the floor at 0225 via w/c and admitted to room 203. oriented to room and equipement. call smith in reach.
--- NOTE | 2023-07-06 05:19 | PC.NURSE ---
VITAL SIGNS STABLE/AFEBRILE. MEDICATED AT 0414 WITH MORPHINE 4 MG IVP AND ZOFRAN 4 MG IVP FOR PAIN 4/10 AND NAUSEA. NO FURTHER COMPLAINTS AT THIS TIME.
--- NOTE | 2023-07-06 05:24 | PC.NURSE ---
HAS BEEN NPO SINCE ADMISSION.
--- NOTE | 2023-07-06 07:17 | HMH.PHAINT1 ---
Pharmacy Intervention Comments: MEDICATION RECONCILIATION COMPLETED ON PATIENT USING EXTERNAL FILL HISTORY FROM PHARMACY AND LIST FROM PCP OFFICE. -TRICIA YOST, KASSIED
[2023-07-06 07:30] LABS: Basophils % 0.4 % (0.1-2.0); Eosinophils # 0.2 K/mm3 (0.0-0.4); Eosinophils % 2.3 % (0.1-12.0); Hematocrit 45.3 % (37.0-47.0); Lymphocytes # 2.4 K/mm3 (0.7-4.5); Lymphocytes % 30.7 % (10-50); Mean Corpuscular HGB Conc 33.2 g/dL (31.8-35.4); Mean Corpuscular Hemoglobin 29.8 pg (27.0-31.2); Mean Corpuscular Volume 89.8 fl (81-99); Mean Platelet Volume 8.3 fl (7.4-10.4); Monocytes # 0.6 K/mm3 (0.1-1.0); Monocytes % 8.2 % (1.7-9.3); Neutrophils # 4.6 K/mm3 (1.8-7.8); Neutrophils % 58.4 % (37.0-80.0); Platelet Count 325 K/mm3 (142-424); Red Blood Count 5.04 M/mm3 (4.20-5.40); Red Cell Distribution Width 12.3 % (11.5-17.5); White Blood Count 7.8 K/mm3 (4.8-10.8)
[2023-07-06 07:39] LABS: Alanine Aminotransferase 18 U/L (12-78); Albumin Level 4.6 g/dl (3.5-5.0); Albumin/Globulin Ratio 1.6 (1.1-1.8); Alkaline Phosphatase 73 U/L (38-126); Aspartate Amino Transferase 25 U/L (14-36); Bilirubin,Total 0.9 mg/dl (0.2-1.3); Blood Urea Nitrogen 11 mg/dl (7-17); Carbon Dioxide 31 mmol/L (22.0-30.0); Chloride 98 mmol/L (98-107); Creatinine Clearance Estimated 71 mL/min (50-200); Estimated Glomerular Filt Rate 69 ml/min (>60); GFR (African American) 83 ML/MIN (>60); Globulin 2.9 g/dL (1.3-3.2); Glucose 100 mg/dl (74-100); Sodium 139 mmol/L (136-145); Total Protein,Serum 7.5 g/dl (6.3-8.2)
--- NOTE | 2023-07-06 07:39 | EXP.SURG.CON ---
History of Present Illness *Admission Date: 07/06/23 *Reason for visit:: Colitis, abdominal pain *History of present illness: The following is obtained from the hospitalist admission history and physical: This is a 50 yo morbidly obese patient with PMHx of multilevel degenerative spine disease, with intrathecal pain pump and implanted neuro-stimulator presented to ER for evaluation of 9 days of constipation with associated nausea and vomiting. Patient complains of associated gradual in onset, constant, worsening diffuse however principally suprapubic abdominal pain without associated dysuria or frequency. Patient visited many diferent providers, including coming to ER yesterday and does not experiemented any release. She has had similar symptoms before that have resolved with p.o. laxatives. this time pain is 10/10 and constant. Denies any back pain or fevers or chills denies any back trauma. Denies ability to pass flatus. Previous therapies include nivw-woh-skjwtlq suppository which did not result in bowel movement. Of note patient has extensive abdominal surgical history including appendectomy, cholecystectomy, hysterectomy, gastric sleeve.No confusion or chest pain or palpitations. Pain is described as severe and nonradiating. No leg pain or saddle anesthesia or incontinence of urine. Admitted for further work up. Apparently she has had 9 days of obstipation. Pain is severe. She states that the pain originated in her back and then radiated around to her abdomen. She was administered an enema in the emergency department which gave no relief and no result. She therefore underwent imaging. She underwent CT scan of the abdomen and pelvis which revealed no acute findings. She underwent CTA of the abdomen and pelvis which is unremarkable. There was not distention fluid-filled sigmoid: Which was felt to be nonspecific but possibly consistent with proctocolitis. Her symptoms remained intractable and refractory in the emergency department and she was therefore admitted. Surgical consultation was obtained. Patient states that she has a prior history of chronic constipation but had been started on Linzess and has not had issue over the past year. She has undergone EGD and colonoscopy earlier this year with Dr. Garza in [place]. Reportedly colonoscopy was unremarkable. [facility] Disclaimer: The information contained in this section may have been updated after the patient was seen, as this information can be updated by other users. Medical History (Updated 07/06/23 @ 06:05 by Silvio Suarez APRN) Ankylosing spondylitis Anxiety Barretts esophagus Body mass index (BMI) of 40.1 to 44.9 in adult Constipation Hypertension Morbid obesity Neuropathic pain RLQ abdominal pain Surgical History History of appendectomy History of bilateral knee replacement History of cholecystectomy History of hysterectomy including cervix History of tonsillectomy Hx of gastric bypass Hx of tubal ligation Family History Other Cancer Coronary artery disease Diabetes Hypertension Social History Smoking Status: Never smoker second hand exposure: No alcohol intake: never substance use type: denies use current occupational status: other Travel in the last 8 weeks: None household members: significant other and children housing: house lives independently: Yes marital status: life partner education level: high school service: No penitentiary: No current occupation: [employer] current occupational exposures/hazards: No caffeine: Yes physical activity: walking frequency: 5-6 times per week do you feel s
--- NOTE | 2023-07-06 12:24 | PC.NURSE ---
Rounded on patient. Currently resting in bed with her eyes closed. Will check back on patient later.
--- NOTE | 2023-07-06 14:09 | PC.NURSE ---
Courtesy Round Rounded on patient. Patient sleeping comfortably at this time with call light within reach. Trash emptied .
--- NOTE | 2023-07-06 15:58 | EXP.PAIN.SOA ---
[facility] Pain Management SOAP Note Subjective:: Patient is a pleasant 43-year-old female who presents today as a consult on the [facility] floor. We are currently treating the patient for degenerative disc disease of cervical and lumbar spine with cervical and lumbar radiculopathy symptoms. Today she rates her pain a 8 out of 10. Patient states that yesterday she presented to the ER for nausea and vomiting and unable to keep anything down. Patient states that she has not had a bowel movement for approximately 9 days. Patient states her normal routine is daily. From our last visit we did do additional imaging to rule out possible kidney stones related to a change of pain symptoms as well as lumbar and thoracic imaging for possible fractures. Patient states that her intrathecal pump was not touching her abdominal pain. She states that the pain she had been experiencing at our last visit moved from her back to her abdomen where it is remained. Patient states that they did give her a couple of doses of IV morphine however it made no additional improvement. Patient states they did change to Dilaudid and it did provide significant relief. Patient states that she has not had any more episodes of vomiting at all today. She states that Dr. Orlando did come and consult this morning however she does not know of any additional plan. She states that they did try an enema last night in the ER however she had no additional output. Patient denies any additional enemas today. Patient is currently managed with morphine 1 mg/mL with a daily dose of 0.3318 mg/day. Patient denies any side effects from this medication. Patient's nurse does state that they have added docusate onto her oral medications and that she did go from n.p.o. to clear liquids officially this afternoon. She states that she has not been getting up at all and earlier in the day she did do a bladder scan that showed she had 460 mL of urine. She states that she did get confirmation to do a in and out cath for this. She does state that she has not heard anything additional about the plan of care for [place] or possible discharge plan in the future. Review of Systems: General: No recent weight changes, no fever, no sleep disturbances Respiratory: No cough, no shortness of air, no recurring pulmonary infections Cardiovascular/peripheral vascular: No chest pain, no palpitations, no edema, no shortness of breath Gastrointestinal: No new onset incontinence, normal bowel movements reported Genitourinary: No new onset incontinence Musculoskeletal: Abdominal pain Psychiatric: [Normal mood/affect] Neurological: [Denies weakness in extremities], [denies balance issues] Objective:: Physical Exam: General: Alert and oriented x3, no acute distress, pleasant and cooperative Lungs: Respirations even and unlabored, symmetrical chest expansion Eyes: PERRL Musculoskeletal: Flexion and extension of lumbar [spine] somewhat guarded secondary to pain, [antalgic gait noted] Neurological: Speech clear, no gross sensory deficit Assessment:: Degenerative disc disease of cervical and lumbar spine with cervical and lumbar radiculopathy symptoms, abdominal pain Plan:: Patient is experiencing significant abdominal pain most likely related to obstipation. I have counseled the patient that due to her having Dilaudid IV I will not make any additional adjustments to her pump at this time. I will continue to monitor her chart to see if any changes are made by her doctors or if a discharge plan is put in place at a later time frame. I have discussed with the patient that I do think her abdominal pain is related to not being able to go to the restroom as her normal pattern is daily. We will have the patient follow-up back in clinic once she is discharged for reevaluation of symptoms and plan of care. Patient has been instructed to contact the clinic with any concerns before the next appointment. Dr. Jimenez has reviewed this note and agrees with this pl
--- NOTE | 2023-07-06 18:04 | PC.NURSE ---
pt alert and oriented t/o shift. ls cta. abdomen soft, nontender on palpation. bs active t/o. pt did have watery bowel movement this shift. pt reports abdominal pain t/o and has been medicated per mar this shift. pt has reported nausea this shift and was medicated per mar. pt was advanced to clear liquid diet today and did tolerate.
[2023-07-07] VITALS (7 sets, daily range): BP systolic 103–122; BP diastolic 60–77; PULSE 64–105; RESP 16–22; TEMP 36.4–36.8; O2SAT 91–100; BMI 42.3
--- NOTE | 2023-07-07 06:42 | EXP.SURG.PN ---
Subjective Narrative: Patient reportedly had nausea overnight requiring antiemetics as well as some narcotics for abdominal pain. Minimal liquid intake. Exam Data for Last 24 hours Vital signs and Labs for Last 24 Hours: Temp Pulse Resp BP Pulse Ox O2 Del Method 97.5 F L 81 18 119/66 92 L Room Air 07/07/23 04:00 07/07/23 04:00 07/07/23 04:00 07/07/23 04:00 07/07/23 04:00 07/07/23 06:23 Laboratory Results - last 24 hr 07/06/23 06:55: WBC 7.8, RBC 5.04, Hgb 15.0, Hct 45.3, MCV 89.8, MCH 29.8, MCHC 33.2, RDW 12.3, Plt Count 325, MPV 8.3, Neut % (Auto) 58.4, Lymph % (Auto) 30.7, [place] % (Auto) 8.2, Eos % (Auto) 2.3, Baso % (Auto) 0.4, Neut # (Auto) 4.6, Lymph # (Auto) 2.4, [place] # (Auto) 0.6, Eos # (Auto) 0.2, Baso # (Auto) 0.0, Sodium 139, Potassium 3.0 L, Chloride 98, Carbon Dioxide 31 H, Anion Gap 13.0, BUN 11, Creatinine 0.90, Estimated Creat Clear 71, Estimated GFR 69, Est GFR ( Amer) 83, Glucose 100, Calcium 9.0, Total Bilirubin 0.9, AST 25 D, ALT 18, Alkaline Phosphatase 73, Total Protein 7.5, Albumin 4.6 D, Globulin 2.9, Albumin/Globulin Ratio 1.6 I & O for Last 24 hours: Intake & Output 07/04/23 07/05/23 07/06/23 07/07/23 11:59 11:59 11:59 11:59 Intake Total 285 / 285 2084 / 2084 Output Total 201 / 201 700 / 700 Balance 84 / 84 1384 / 1384 Weight 247 lb 5 oz 254 lb 1 oz Constitutional Comments: Currently sleeping well Progress Note: A&P Assessment and plan (1) Intractable abdominal pain: Status: Acute Assessment and plan: May consider follow-up CT scan with oral contrast if able to tolerate. (2) Acute proctitis: Status: Acute (3) Constipation: Status: Chronic (4) Anxiety: Status: Chronic (5) Hypertension: Status: Chronic (6) BMI 40.0-44.9, adult: Status: Chronic
[2023-07-07 07:34] LABS: Alanine Aminotransferase 20 U/L (12-78); Albumin Level 4.6 g/dl (3.5-5.0); Albumin/Globulin Ratio 1.4 (1.1-1.8); Alkaline Phosphatase 170 U/L (38-126); Anion Gap 17.4 mEq/L (5-15); Aspartate Amino Transferase 80 U/L (14-36); Bilirubin,Total 1.3 mg/dl (0.2-1.3); Blood Urea Nitrogen 7 mg/dl (7-17); Calcium 8.7 mg/dl (8.4-10.2); Carbon Dioxide 23 mmol/L (22.0-30.0); Chloride 104 mmol/L (98-107); Creatinine Clearance Estimated 91 mL/min (50-200); Estimated Glomerular Filt Rate 92 ml/min (>60); GFR (African American) 112 ML/MIN (>60); Globulin 3.3 g/dL (1.3-3.2); Glucose 86 mg/dl (74-100); Magnesium 2.2 mg/dl (1.6-2.3); Phosphorous 3.3 mg/dl (2.5-4.5); Potassium 3.4 mmoL/L (3.5-5.1); Sodium 141 mmol/L (136-145); Total Protein,Serum 7.9 g/dl (6.3-8.2)
--- NOTE | 2023-07-07 07:43 | EXP.PN ---
Subjective *Date: 07/07/23 *Time: 18:28 Interval history: She had a small watery bowel movement yesterday evening. She's had nausea and LLQ abdominal pain but no vomiting. She has been tolerating a CLD well. Exam Data for Last 24 hours Vital signs and Labs for Last 24 Hours: Temp Pulse Resp BP Pulse Ox O2 Del Method 97.5 F L 81 18 119/66 92 L Room Air 07/07/23 04:00 07/07/23 04:00 07/07/23 04:00 07/07/23 04:00 07/07/23 04:00 07/07/23 06:23 Laboratory Results - last 24 hr 07/06/23 06:55: WBC 7.8, RBC 5.04, Hgb 15.0, Hct 45.3, MCV 89.8, MCH 29.8, MCHC 33.2, RDW 12.3, Plt Count 325, MPV 8.3, Neut % (Auto) 58.4, Lymph % (Auto) 30.7, [place] % (Auto) 8.2, Eos % (Auto) 2.3, Baso % (Auto) 0.4, Neut # (Auto) 4.6, Lymph # (Auto) 2.4, [place] # (Auto) 0.6, Eos # (Auto) 0.2, Baso # (Auto) 0.0, Sodium 139, Potassium 3.0 L, Chloride 98, Carbon Dioxide 31 H, Anion Gap 13.0, BUN 11, Creatinine 0.90, Estimated Creat Clear 71, Estimated GFR 69, Est GFR ( Amer) 83, Glucose 100, Calcium 9.0, Total Bilirubin 0.9, AST 25 D, ALT 18, Alkaline Phosphatase 73, Total Protein 7.5, Albumin 4.6 D, Globulin 2.9, Albumin/Globulin Ratio 1.6 07/07/23 07:01: Sodium 141, Potassium 3.4 L, Chloride 104, Carbon Dioxide 23, Anion Gap 17.4 H, BUN 7 D, Creatinine 0.70 D, Estimated Creat Clear 91, Estimated GFR 92, Est GFR ( Amer) 112 D, Glucose 86, Calcium 8.7, Phosphorus 3.3, Magnesium 2.2, Total Bilirubin 1.3, AST 80 H D, ALT 20, Alkaline Phosphatase 170 H, Total Protein 7.9, Albumin 4.6, Globulin 3.3 H, Albumin/Globulin Ratio 1.4 I & O for Last 24 hours: Intake & Output 07/04/23 07/05/23 07/06/23 07/07/23 23:59 23:59 23:59 23:59 Intake Total 1799 / 2369 1270 / 1270 Output Total 601 / 601 300 / 300 Balance 1198 / 1768 970 / 970 Weight 108.862 kg 112.179 kg 115.241 kg Constitutional Constitutional: no acute distress *Routine HEENT Exam Head: Present normocephalic Eye: Present EOMI and PERRL ENT: Present mucous membranes moist *Routine Neck Exam Neck: Present supple; Absent lymphadenopathy *Routine Respiratory Exam Respiratory: Present CTA bilaterally *Routine Cardiovascular Exam Cardiovascular: Present RRR *Routine Abdominal Exam Abdominal: Present soft, normoactive bowel sounds and tenderness (LLQ); Absent distended or rebound *Routine Extremities Exam Extremities: Absent cyanosis, clubbing or edema *Routine Skin Exam Skin: Present warm; Absent rash *Routine Neurological Exam Neurological: Present alert and oriented X3 Assessment and Plan *Assessment and plan (1) Intractable abdominal pain: Status: Acute Category: Medical Code(s): R10.9 - Unspecified abdominal pain (2) Acute proctitis: Status: Acute Category: Medical Code(s): K62.89 - Other specified diseases of anus and rectum (3) Constipation: Status: Chronic Qualifiers: Constipation type: chronic idiopathic constipation Qualified Code(s): K59.04 - Chronic idiopathic constipation Category: Medical Code(s): K59.00 - Constipation, unspecified (4) Anxiety: Status: Chronic Category: Medical Code(s): F41.9 - Anxiety disorder, unspecified (5) Hypertension: Status: Chronic Qualifiers: Hypertension type: primary hypertension Qualified Code(s): I10 - Essential (primary) hypertension Category: Medical Code(s): I10 - Essential (primary) hypertension (6) BMI 40.0-44.9, adult: Status: Chronic Category: Medical Code(s): Z68.41 - Body mass index [BMI] 40.0-44.9, adult Plan #intractable abdominal pain #nausea The patient has a history of gastric bypass surgery over 12 years ago. She also has a history of cholecystectomy, appendectomy and hysterectomy. CT of the abd/pel w oral contrast does not reveal any obstruction. Unclear what is causing the patient's abdominal pain. I really appreciate General Surgery's help. Will order a
--- NOTE | 2023-07-07 08:23 | CT_ITS ---
FINAL REPORT TECHNIQUE: Axial CT images were performed from the lung bases through the iliac crests. Coronal and sagittal reformats were submitted.This study was performed with techniques to keep radiation doses as low as reasonably achievable (ALARA). Individualized dose reduction techniques using automated exposure control or adjustment of mA and/or kV according to the patient''''s size were employed. CLINICAL HISTORY: obstipation pt drank oral contrast COMPARISON: 07/05/2023 FINDINGS: CT ABDOMEN WITHOUT CONTRAST: There has been interval development of atelectasis in the lung bases since the prior CT of 07/05/2023. The liver parenchyma is homogeneous. There is postoperative change noted at the gastroesophageal junction. The gallbladder has been surgically resected. The spleen, pancreas, and adrenals are unremarkable. There is a well-circumscribed low-attenuation focus in the periphery of the left kidney, 5 mm in size, that was noted on the prior CT of 07/05/2023. This is too small to accurately characterize. Most likely, this represents a small cyst or angiomyolipoma. There is no mass or adenopathy. IMPRESSION: Interval development atelectasis in the lung bases. Well-circumscribed focus of low-attenuation in the periphery of the left kidney, 5 mm in size, too small to accurately characterize. Most likely this represents a small cyst or angiomyolipoma. Reviewed, Interpreted and Dictated by José Luis Muñiz MD Transcribed by Ruby Li Authenticated and [facility]
[2023-07-07 08:30] LABS: Basophils % 0.4 % (0.1-2.0); Eosinophils # 0.3 K/mm3 (0.0-0.4); Eosinophils % 4.6 % (0.1-12.0); Hematocrit 40.7 % (37.0-47.0); Hemoglobin 13.2 g/dL (12.2-16.2); Lymphocytes # 1.9 K/mm3 (0.7-4.5); Lymphocytes % 33.2 % (10-50); Mean Corpuscular HGB Conc 32.4 g/dL (31.8-35.4); Mean Corpuscular Hemoglobin 29.6 pg (27.0-31.2); Mean Corpuscular Volume 91.4 fl (81-99); Monocytes # 0.3 K/mm3 (0.1-1.0); Monocytes % 5.8 % (1.7-9.3); Neutrophils # 3.3 K/mm3 (1.8-7.8); Platelet Count 273 K/mm3 (142-424); Red Blood Count 4.46 M/mm3 (4.20-5.40); Red Cell Distribution Width 12.5 % (11.5-17.5); White Blood Count 5.8 K/mm3 (4.8-10.8)
--- NOTE | 2023-07-07 11:42 | EXP.SURG.PN ---
Subjective Narrative: Patient complains of some abdominal pain ongoing with associated nausea. She describes pain mostly in the left lower quadrant with radiation to bilateral upper quadrants. She did undergo CT scan of the abdomen with oral contrast. Results pending. Exam Data for Last 24 hours Vital signs and Labs for Last 24 Hours: Temp Pulse Resp BP Pulse Ox O2 Del Method 97.7 F 96 H 16 103/77 L 99 Room Air 07/07/23 08:00 07/07/23 08:00 07/07/23 08:00 07/07/23 08:00 07/07/23 08:00 07/07/23 09:00 Laboratory Results - last 24 hr 07/07/23 07:01: Sodium 141, Potassium 3.4 L, Chloride 104, Carbon Dioxide 23, Anion Gap 17.4 H, BUN 7 D, Creatinine 0.70 D, Estimated Creat Clear 91, Estimated GFR 92, Est GFR ( Amer) 112 D, Glucose 86, Calcium 8.7, Phosphorus 3.3, Magnesium 2.2, Total Bilirubin 1.3, AST 80 H D, ALT 20, Alkaline Phosphatase 170 H, Total Protein 7.9, Albumin 4.6, Globulin 3.3 H, Albumin/Globulin Ratio 1.4 07/07/23 08:17: WBC 5.8 D, RBC 4.46, Hgb 13.2, Hct 40.7, MCV 91.4, MCH 29.6, MCHC 32.4, RDW 12.5, Plt Count 273, MPV 8.0, Neut % (Auto) 56.0, Lymph % (Auto) 33.2, [place] % (Auto) 5.8, Eos % (Auto) 4.6, Baso % (Auto) 0.4, Neut # (Auto) 3.3, Lymph # (Auto) 1.9, [place] # (Auto) 0.3, Eos # (Auto) 0.3, Baso # (Auto) 0.0 I & O for Last 24 hours: Intake & Output 07/04/23 07/05/23 07/06/23 07/07/23 11:59 11:59 11:59 11:59 Intake Total 285 / 285 3144 / 3144 Output Total 201 / 201 700 / 700 Balance 84 / 84 2444 / 2444 Weight 247 lb 5 oz 254 lb 1 oz *Routine Abdominal Exam Abdominal: Present soft Comments: Mild tenderness without guarding or rebound mostly in left lower quadrant. Progress Note: A&P Assessment and plan (1) Intractable abdominal pain: Status: Acute Assessment and plan: Follow-up CT scan performed. Report pending. It appears as though she has CT of the abdomen without pelvis. We will see if this can be added. If patient requires surgical intervention, given previous gastric bypass surgery, would need to be transferred to facility with bariatric capabilities. (2) Acute proctitis: Status: Acute (3) Constipation: Status: Chronic (4) Anxiety: Status: Chronic (5) Hypertension: Status: Chronic (6) BMI 40.0-44.9, adult: Status: Chronic
--- NOTE | 2023-07-07 11:44 | CT_ITS ---
FINAL REPORT CLINICAL HISTORY: ABDOMINAL PAIN, LLQ COMPARISON: 07/05/2023 FINDINGS: Axial images through the pelvis were performed by computed tomography afther the administration of IV and oral contrast. Sagittal and coronal reconstruction images were performed. This study was performed with techniques to keep radiation doses as low as reasonably achievable (ALARA). Individualized dose reduction techniques using automated exposure control or adjustment of mA and/or kV according to the patient's size were employed. Contrast is seen within the urinary bladder. The uterus is not identified, probably surgically absent. There are calcified phleboliths in the floor of the pelvis. IMPRESSION: No acute process. Reviewed, Interpreted and Dictated by José Luis Muñiz MD Transcribed by Ro Ochoa Authenticated and [facility]
--- NOTE | 2023-07-07 14:21 | PC.NURSE ---
patient has complained of pain in abdomen as well as intermittent nausea. did want to eat lunch, however npo at this time until scans are back. rings out as needed. has been resting in bed. no bm reported today. encouraged to ring out as needed.
[2023-07-07 23:09] LABS: Adenovirus F 40/41, stool Not Detected (NotDetected); Astrovirus Not Detected (NotDetected); Campylobacter Not Detected (NotDetected); Clostridium Difficile A/B, PCR Not Detected (NotDetected); Cryptosporidium Not Detected (NotDetected); Cyclospora Cayetanesis Not Detected (NotDetected); Entamoeba histolytica Not Detected (NotDetected); Enteroaggregative E coli Not Detected (NotDetected); Enteropathogenic E coli Not Detected (NotDetected); Enterotoxigenic E coli Not Detected (NotDetected); Giardia lamblia Not Detected (NotDetected); Norovirus Not Detected (NotDetected); Plesimonas Shigalloides, PCR Not Detected (NotDetected); Rotavirus A Not Detected (NotDetected); Salmonella, PCR Not Detected (NotDetected); Sapovirus Not Detected (NotDetected); Shiga-like toxin E coli Not Detected (NotDetected); Shigella Enterovasive E coli Not Detected (NotDetected); Vibrio Cholerae Not Detected (NotDetected); Vibrio, PCR Not Detected (NotDetected); Yersinia Entercolitica, PCR Not Detected (NotDetected)
[2023-07-08 04:00] VITALS: BP 112/72; PULSE 97; RESP 20; TEMP 37.2; O2SAT 98; BMI 42.7
--- NOTE | 2023-07-08 04:56 | PC.NURSE ---
NO ACUTE CHANGES THIS SHIFT. PT HAS RESTED INTERMITTENTLY. SHE HAS C/O SEVER ABDOMINAL PAIN X3 THIS SHIFT AND HAS BEEN MEDICATED PER MAR FOR PAIN. SHE WAS ALSO MEDICATED FOR NAUSEA X1 THIS SHIFT. PT WAS ABLE TO AMBULATE TO THE BATHROOM WITH ASSIST X1. DIARRHEA PANEL WAS CLEAR.REMAINS ON ROOM AIR. VSS. REMAINS AFEBRILE.
[2023-07-08 08:00] VITALS: BP 111/64; PULSE 108; RESP 22; TEMP 36.8; O2SAT 98
[2023-07-08 08:15] LABS: Basophils % 0.2 % (0.1-2.0); Eosinophils # 0.2 K/mm3 (0.0-0.4); Eosinophils % 2.2 % (0.1-12.0); Hematocrit 38.8 % (37.0-47.0); Hemoglobin 12.6 g/dL (12.2-16.2); Lymphocytes # 2.4 K/mm3 (0.7-4.5); Mean Corpuscular HGB Conc 32.5 g/dL (31.8-35.4); Mean Corpuscular Hemoglobin 29.8 pg (27.0-31.2); Mean Corpuscular Volume 91.8 fl (81-99); Mean Platelet Volume 8.6 fl (7.4-10.4); Monocytes # 0.5 K/mm3 (0.1-1.0); Monocytes % 6.9 % (1.7-9.3); Neutrophils % 56.6 % (37.0-80.0); Platelet Count 294 K/mm3 (142-424); Red Blood Count 4.23 M/mm3 (4.20-5.40); Red Cell Distribution Width 12.4 % (11.5-17.5)
[2023-07-08 08:25] LABS: Alanine Aminotransferase 14 U/L (12-78); Albumin Level 3.3 g/dl (3.5-5.0); Albumin/Globulin Ratio 1.3 (1.1-1.8); Alkaline Phosphatase 65 U/L (38-126); Anion Gap 10.3 mEq/L (5-15); Aspartate Amino Transferase 31 U/L (14-36); Bilirubin,Total 0.3 mg/dl (0.2-1.3); Blood Urea Nitrogen 4 mg/dl (7-17); Calcium 8.2 mg/dl (8.4-10.2); Carbon Dioxide 28 mmol/L (22.0-30.0); Chloride 104 mmol/L (98-107); Creatinine Clearance Estimated 91 mL/min (50-200); Estimated Glomerular Filt Rate 92 ml/min (>60); GFR (African American) 112 ML/MIN (>60); Globulin 2.5 g/dL (1.3-3.2); Glucose 82 mg/dl (74-100); Potassium 3.3 mmoL/L (3.5-5.1); Sodium 139 mmol/L (136-145); Total Protein,Serum 5.8 g/dl (6.3-8.2)
--- NOTE | 2023-07-08 08:58 | EXP.SURG.PN ---
Subjective Narrative: She continues to have what she describes as fairly severe sharp/stabbing abdominal pain. Although she does have pain in multiple locations she describes that the worst pain is now in the upper part . She continues to be nauseous and states that her nausea is actually worse. No emesis. She has had a small amount of flatus but no bowel movement. Over the past 24 hours she has noticed a new symptom of inability to feel urination . She states that she can hear urine hit the toilet water but is unable to feel anything . Exam Data for Last 24 hours Vital signs and Labs for Last 24 Hours: Temp Pulse Resp BP Pulse Ox O2 Del Method 98.2 F 108 H 22 111/64 98 Room Air 07/08/23 08:00 07/08/23 08:00 07/08/23 08:00 07/08/23 08:00 07/08/23 08:00 07/08/23 08:00 Laboratory Results - last 24 hr 07/07/23 22:55: Stl Aeromonas (PCR) Not detected, Stl C. cayetanensis PCR Not detected, Stool Rotavirus (PCR) Not detected, Stl Adenov F 40/41 PCR Not detected, Stool Astrovirus (PCR) Not detected, Stool Campylobacter PCR Not detected, Stl C.difficile Tox PCR Not detected, Stool Cryptosporidium PCR Not detected, Stl E.coli Shiga Tox PCR Not detected, Stool E coli O157 PCR Not detected, Stl Enterotoxigenic E PCR Not detected, Stool EPEC (PCR) Not detected, Stool EAEC (PCR) Not detected, Stl E. histolytica PCR Not detected, Stool Giardia Lamblia PCR Not detected, Stool Salmonella PCR Not detected, Stool Sapovirus (PCR) Not detected, Stl P. shigelloides PCR Not detected, Stl Shigella/EIEC PCR Not detected, St Y.enterocolitica PCR Not detected, Stool Vibrio (PCR) Not detected, Stl Vibrio cholerae PCR Not detected, Stl Norovirus GI/GII PCR Not detected 07/08/23 06:19: WBC 7.0, RBC 4.23, Hgb 12.6, Hct 38.8, MCV 91.8, MCH 29.8, MCHC 32.5, RDW 12.4, Plt Count 294, MPV 8.6, Neut % (Auto) 56.6, Lymph % (Auto) 34.0, [place] % (Auto) 6.9, Eos % (Auto) 2.2, Baso % (Auto) 0.2, Neut # (Auto) 4.0, Lymph # (Auto) 2.4, [place] # (Auto) 0.5, Eos # (Auto) 0.2, Baso # (Auto) 0.0, Sodium 139, Potassium 3.3 L, Chloride 104, Carbon Dioxide 28, Anion Gap 10.3, BUN 4 L D, Creatinine 0.70, Estimated Creat Clear 91, Estimated GFR 92, Est GFR ( Amer) 112, Glucose 82, Calcium 8.2 L, Total Bilirubin 0.3, AST 31 D, ALT 14 D, Alkaline Phosphatase 65, Total Protein 5.8 L D, Albumin 3.3 L D, Globulin 2.5, Albumin/Globulin Ratio 1.3 I & O for Last 24 hours: Intake & Output 07/05/23 07/06/23 07/07/23 07/08/23 11:59 11:59 11:59 11:59 Intake Total 285 / 285 3144 / 3144 2218 / 2218 Output Total 201 / 201 700 / 700 0 / 0 Balance 84 / 84 2444 / 2444 2218 / 2218 Weight 247 lb 5 oz 254 lb 1 oz 256 lb 12.8 oz Radiology Reports for the Last 24 Hours: CT of abdomen obtained yesterday: IMPRESSION: Interval development atelectasis in the lung bases. Well-circumscribed focus of low-attenuation in the periphery of the left kidney, 5 mm in size, too small to accurately characterize. Most likely this represents a small cyst or angiomyolipoma. CT of pelvis obtained yesterday: IMPRESSION: No acute process. Constitutional Constitutional: no acute distress *Routine Respiratory Exam Respiratory: Absent respiratory distress *Routine Cardiovascular Exam Cardiovascular: Present tachycardia (Mildly tachycardic) *Routine Abdominal Exam Abdominal: Present soft, tenderness (The patient does have pain globally but no increased tenderness with palpation. She states it hurts all the time .) and obese; Absent distended, rebound, guarding or firm Progress Note: A&P Assessment and plan (1) Intractable abdominal pain: Status: Acute Assessment and plan: The patient does not have evidence of peritonitis; however, she has shown no evidence of improvement over multiple days. I recommend immediate transfer to a tertiary center with bariatric capabilities. (2) Status post gastric bypass for obesity: Status: Acute Assessment and plan: (See 1 above) (3) Abnor
--- NOTE | 2023-07-08 11:11 | EXP.PN ---
Subjective *Date: 07/08/23 *Time: 11:34 Interval history: The patient had a small loose bowel movement yesterday. She has been tolerating a full liquid diet well. She continues to have abdominal pain and nausea. Exam Data for Last 24 hours Vital signs and Labs for Last 24 Hours: Temp Pulse Resp BP Pulse Ox O2 Del Method 98.2 F 108 H 22 111/64 98 Room Air 07/08/23 08:00 07/08/23 08:00 07/08/23 08:00 07/08/23 08:00 07/08/23 08:00 07/08/23 11:00 Laboratory Results - last 24 hr 07/07/23 22:55: Stl Aeromonas (PCR) Not detected, Stl C. cayetanensis PCR Not detected, Stool Rotavirus (PCR) Not detected, Stl Adenov F 40/41 PCR Not detected, Stool Astrovirus (PCR) Not detected, Stool Campylobacter PCR Not detected, Stl C.difficile Tox PCR Not detected, Stool Cryptosporidium PCR Not detected, Stl E.coli Shiga Tox PCR Not detected, Stool E coli O157 PCR Not detected, Stl Enterotoxigenic E PCR Not detected, Stool EPEC (PCR) Not detected, Stool EAEC (PCR) Not detected, Stl E. histolytica PCR Not detected, Stool Giardia Lamblia PCR Not detected, Stool Salmonella PCR Not detected, Stool Sapovirus (PCR) Not detected, Stl P. shigelloides PCR Not detected, Stl Shigella/EIEC PCR Not detected, St Y.enterocolitica PCR Not detected, Stool Vibrio (PCR) Not detected, Stl Vibrio cholerae PCR Not detected, Stl Norovirus GI/GII PCR Not detected 07/08/23 06:19: WBC 7.0, RBC 4.23, Hgb 12.6, Hct 38.8, MCV 91.8, MCH 29.8, MCHC 32.5, RDW 12.4, Plt Count 294, MPV 8.6, Neut % (Auto) 56.6, Lymph % (Auto) 34.0, [place] % (Auto) 6.9, Eos % (Auto) 2.2, Baso % (Auto) 0.2, Neut # (Auto) 4.0, Lymph # (Auto) 2.4, [place] # (Auto) 0.5, Eos # (Auto) 0.2, Baso # (Auto) 0.0, Sodium 139, Potassium 3.3 L, Chloride 104, Carbon Dioxide 28, Anion Gap 10.3, BUN 4 L D, Creatinine 0.70, Estimated Creat Clear 91, Estimated GFR 92, Est GFR ( Amer) 112, Glucose 82, Calcium 8.2 L, Total Bilirubin 0.3, AST 31 D, ALT 14 D, Alkaline Phosphatase 65, Total Protein 5.8 L D, Albumin 3.3 L D, Globulin 2.5, Albumin/Globulin Ratio 1.3 I & O for Last 24 hours: Intake & Output 07/05/23 07/06/23 07/07/23 07/08/23 23:59 23:59 23:59 23:59 Intake Total 1799 / 2369 3091 / 3091 757 / 757 Output Total 601 / 601 300 / 300 0 / 0 Balance 1198 / 1768 2791 / 2791 757 / 757 Weight 108.862 kg 112.179 kg 115.241 kg 116.483 kg Constitutional Constitutional: no acute distress *Routine HEENT Exam Head: Present normocephalic Eye: Present EOMI and PERRL ENT: Present mucous membranes moist *Routine Neck Exam Neck: Present supple; Absent lymphadenopathy *Routine Respiratory Exam Respiratory: Present CTA bilaterally *Routine Cardiovascular Exam Cardiovascular: Present RRR *Routine Abdominal Exam Abdominal: Present soft, normoactive bowel sounds, tenderness (LLQ) and rebound; Absent distended *Routine Extremities Exam Extremities: Absent cyanosis, clubbing or edema *Routine Skin Exam Skin: Present warm; Absent rash *Routine Neurological Exam Neurological: Present alert and oriented X3 Assessment and Plan *Assessment and plan (1) Intractable abdominal pain: Status: Acute Category: Medical Code(s): R10.9 - Unspecified abdominal pain (2) Acute proctitis: Status: Acute Category: Medical Code(s): K62.89 - Other specified diseases of anus and rectum (3) Constipation: Status: Chronic Qualifiers: Constipation type: chronic idiopathic constipation Qualified Code(s): K59.04 - Chronic idiopathic constipation Category: Medical Code(s): K59.00 - Constipation, unspecified (4) Anxiety: Status: Chronic Category: Medical Code(s): F41.9 - Anxiety disorder, unspecified (5) Hypertension: Status: Chronic Qualifiers: Hypertension type: primary hypertension Qualified Code(s): I10 - Essential (primary) hypertension Category: Medical Code(s): I10 - Essential (primary) hypertension (6
[2023-07-08 16:00] VITALS: BP 133/70; PULSE 98; RESP 22; TEMP 36.7; O2SAT 97
--- NOTE | 2023-07-08 17:05 | EXP.DC.SUM ---
General Admission date:: 07/06/23 Discharge date: 07/08/23 HPI HPI HPI: The following is obtained from the hospitalist admission history and physical: This is a 50 yo morbidly obese patient with PMHx of multilevel degenerative spine disease, with intrathecal pain pump and implanted neuro-stimulator presented to ER for evaluation of 9 days of constipation with associated nausea and vomiting. Patient complains of associated gradual in onset, constant, worsening diffuse however principally suprapubic abdominal pain without associated dysuria or frequency. Patient visited many diferent providers, including coming to ER yesterday and does not experiemented any release. She has had similar symptoms before that have resolved with p.o. laxatives. this time pain is 10/10 and constant. Denies any back pain or fevers or chills denies any back trauma. Denies ability to pass flatus. Previous therapies include [id number] suppository which did not result in bowel movement. Of note patient has extensive abdominal surgical history including appendectomy, cholecystectomy, hysterectomy, gastric sleeve.No confusion or chest pain or palpitations. Pain is described as severe and nonradiating. No leg pain or saddle anesthesia or incontinence of urine. Admitted for further work up. Apparently she has had 9 days of obstipation. Pain is severe. She states that the pain originated in her back and then radiated around to her abdomen. She was administered an enema in the emergency department which gave no relief and no result. She therefore underwent imaging. She underwent CT scan of the abdomen and pelvis which revealed no acute findings. She underwent CTA of the abdomen and pelvis which is unremarkable. There was not distention fluid-filled sigmoid: Which was felt to be nonspecific but possibly consistent with proctocolitis. Her symptoms remained intractable and refractory in the emergency department and she was therefore admitted. Surgical consultation was obtained. Patient states that she has a prior history of chronic constipation but had been started on Linzess and has not had issue over the past year. She has undergone EGD and colonoscopy earlier this year with Dr. Garza in [place]. Reportedly colonoscopy was unremarkable. Hospital Course Hospital Course Hospital Course: #intractable abdominal pain #nausea #history of gastric bypass surgery 12 years ago in [place] #degenerative disc disease of cervical and lumbar spine s/p intrathecal pain pump placed in 01/2023 currently administering morphine of 0.3318mg/day, managed by Dr. Suraj Jimenez. #history of Chavez's esophagus #history of ankylosing spondylitis #history of cholecystectomy #history of appendectomy #history of hysterectomy #history of morbid obesity Argentina Parr is a 43 year old female who initially presented with 9 days of obstipation. Abd/pel ct with oral contrast did not reveal any obstruction. She tolerated a full liquid diet and had a small loose bowel movement; GI panel was negative for an infectious cause. Despite improvement with regard to her obstipation, her nausea and abdominal pain has worsened over the past couple days. She continues to have LLQ abdominal tenderness to palpation and now has rebound tenderness. I discussed the case with General Surgery and they recommended transferring the patient to a facility with a bariatric center and Gastroenterology. The cause of the patient's abdominal pain is unclear; differential diagnosis includes complications related to her gastric bypass, neurologic or psychiatric causes. The patient was accepted for transfer to [facility]. Exam Data for Last 24 hours Vital signs and Labs for Last 24 Hours: Temp Pulse Resp BP Pulse Ox O2 Del Method 98.0 F 98 H 22
--- NOTE | 2023-07-08 17:34 | PC.NURSE ---
called report to gildardo at , #[phone]. pt going to bed [address], room 8146.
--- NOTE | 2023-07-08 18:22 | PC.NURSE ---
pt has slept majority of day. c/o lt sided abd pain and tenderness rating pain 8/10 everytime. pt lying in bed currently asleep waiting for transport. notified ems for transport around 1730, ems stated it will poss be 2-3 hrs before arrival. notified UC for pts eta.
--- NOTE | 2023-07-08 19:41 | P.EN_ITS ---
Dr. Burgess accepting at
--- NOTE | 2023-07-08 19:41 | EXP.EVENT.NO ---
Dr. Burgess accepting at
[2023-07-08 19:56] VITALS: BP 122/64; PULSE 98; RESP 17; TEMP 36.9; O2SAT 97
--- NOTE | 2023-07-08 21:11 | PC.NURSE ---
Pt left the floor with EMS to [facility] at 2049
== END 2023-07-08 20:50 | disposition short-term general hospital (02) | DRG 394 ==
LOC: ER 22:43 → 2ND 07-06 00:12
PROVIDERS: Emergency Medicine; Nurse Practitioner Family; Admitting Provider Internal Medicine; Emergency Provider Emergency Medicine; PCP Physician Assistant; Visit Provider Internal Medicine
DX: K62.89 Other specified diseases of anus and rectum (principal); Z68.41 Body mass index [BMI] 40.0-44.9, adult; K59.04 Chronic idiopathic constipation; Z79.899 Other long term (current) drug therapy; F41.9 Anxiety disorder, unspecified; E66.01 Morbid (severe) obesity due to excess calories
CPT/HCPCS: 36415; 62368; 72128; 72131; 72193; 74018; 74150; 74174; 74177; 80053; 81001; 83605; 83690; 83735; 84100; 84703; 85025; 87506; 99213; 99285; G0463; J2405; Q9967

== ENCOUNTER 2023-07-18 10:57 | Day surgery (SDC) | payer OTHER, SELFPAY ==
[2023-07-18 11:12] VITALS: BP 139/82; PULSE 109; RESP 16; TEMP 37.1; O2SAT 97; BMI 39.9
[2023-07-18 11:43] VITALS: BP 151/98; PULSE 125; RESP 18; O2SAT 97
[2023-07-18 11:44] VITALS: BP 151/98; PULSE 125; RESP 18; O2SAT 96
--- NOTE | 2023-07-18 11:49 | P.PCN_ITS ---
Procedure Date: 07/18/23 Time: 11:40 Anesthesiologist:: Denis Hare CRNA Complications:: None Pre-procedure Diagnosis:: Due to disc cervical spine. Cervical radiculopathy. Degenerative disc lumbar spine lumbar radiculopathy. Post-procedure Diagnosis:: Same Indications for Procedure:: Patient is a pleasant 43-year-old female that comes our clinic today for intrathecal pain pump interrogation refill. Patient currently being managed with morphine sulfate 1 mg/mL at a rate of 0.3318 mg/day. Patient had a recent episode of 10-day constipation and difficulty urinating. Patient was hospitalized at [facility] for several days. Patient was transferred to [facility] for 5 days. Different opinions were given regarding the causation of the above symptoms. I do not feel this is result of the intrathecal pain pump given the fact she remains on such a low dose. P atient states she is now having some bowel movement. Also states she is urinating 2-3 times per day. However, she feels she is not urinating like she should be. Patient reports drinking 10 bottles of water per day. Procedure Details:: Details of the procedure explained to the patient. The patient taken procedure room placed in sitting position. The area over the pump was cleaned using chlorhexidine as a cleansing solution. The pump was interrogated. The pump was accessed with ease using 22-gauge inch and half needle. 1 mL of solution was withdrawn from the pump and discarded appropriately. The pump was then filled with 20 cc of a solution containing morphine sulfate 1 mg/mL. The rate will continue at 0.3318 mg/day. Patient tolerated procedure without difficulty. There are no complications. Plan and Disposition:: Patient was discharged without incident.
[2023-07-18 12:02] VITALS: BP 120/86; PULSE 110; RESP 20
== END 2023-07-18 12:03 | disposition home or self-care (01) ==
PROVIDERS: PCP Physician Assistant; Visit Provider Nurse Anesthetist, Certified Registered
DX: M50.10 Cervical disc disorder with radiculopathy, unspecified cervical region (principal); M51.16 Intervertebral disc disorders with radiculopathy, lumbar region; Z97.8 Presence of other specified devices
CPT/HCPCS: 95991

== ENCOUNTER → 2023-07-20 13:24 | Outpatient (POV) | payer OTHER, SELFPAY ==
[2023-07-20 13:46] VITALS: BP 113/67; PULSE 75; RESP 20; O2SAT 97; BMI 37.3
--- NOTE | 2023-07-20 14:14 | EXP.PAIN.PRO ---
Procedure Date: 07/20/23 Time: 14:14 Anesthesiologist:: Yolie Pierre APRN Complications:: None Pre-procedure Diagnosis:: Degenerative disc disease of cervical and lumbar spine with cervical and lumbar radiculopathy symptoms Post-procedure Diagnosis:: Same Indications for Procedure:: Patient is a pleasant 43-year-old female who presents today for follow-up. We are currently treating the patient for degenerative disc disease of cervical and lumbar spine with cervical and lumbar radiculopathy symptoms. Today she presents stating her pain is a 10 out of 10. Patient states she is still experiencing abdominal pain with back pain. Patient states that following our last visit she was sent to [facility] and had multiple test ran with no acute findings. Patient states that she went a total of 14 days with no bowel movements and then she did finally have 1 at the hospital in [place]. Patient states that since she got home on Monday she has not had any additional bowel movements. She states she is unsure whether or not because she had such a good cleanout while she was in the hospital if she just has not built up enough stool at this point. Patient also states that she continues to have trouble urinating or has no urge to go. She states she only goes about 1 time per day. Patient is currently managed with morphine 1 mg/mL with a daily dose of 0.3318 mg/day. She denies any side effects from this medication. Physical Exam: General: Alert and oriented x3, no acute distress, pleasant and cooperative Lungs: Respirations even and unlabored, symmetrical chest expansion Eyes: PERRL Musculoskeletal: Flexion and extension of lumbar [spine] somewhat guarded secondary to pain, [antalgic gait noted] Neurological: Speech clear, no gross sensory deficit Procedure Details:: Informed consent was obtained and the risk and benefits of the procedure were explained to the patient. Patient was taken to the procedure room where noninvasive monitoring was placed including noninvasive blood pressure cuff and pulse oximeter. Patient's pump was interrogated and was reprogrammed to flex dosing with a decreased amount by 20% to 0.0551 mg every 6 hours with a total dose of 0.2676 mg/day. The patient tolerated the procedure well with no complications. Plan and Disposition:: Patient tolerated her intrathecal adjustment with no complications and was discharged neurologically intact. Due to her continued issues of urinary retention. I will refer her to Dr. Cueva's office for evaluation. Patient will return to clinic in 1 week for further evaluation and plan of care. We will see the patient back in the clinic at the next intrathecal refill. Patient has been instructed to contact the clinic with any concerns before the next appointment. Dr. Jimenez has reviewed this note and agrees with this plan of care. This note was dictated using voice recognition software and make contain errors or omissions. -- It Is medically necessary for this patient to continue to have their intrathecal pump refilled at regular intervals. This patient had an intrathecal pain pump implanted after meeting criteria of chronic intractable pain for greater than 3 months and failing conservative treatments. Patient has committed and been compliant to the treatment plan and all planned follow up care. Since implantation of the intrathecal pain pump, the patient has had decreased pain and been more functional. Oral medications have been reduced including intake of oral opioids. Patient continues to do well with intrathecal therapy with decrease in pain symptoms and increase in functional status. Stopping intrathecal medications can lead to life threatening withdrawal, seizures, cardiac arrest, severe pain, and possible . Pumps that are not refilled at regular intervals can be damages and cause and need for replacement. We continually titrate dose and concentration to optimize pain relief and function.
== END ==
PROVIDERS: PCP Physician Assistant; Visit Provider Nurse Practitioner Family
DX: M50.10 Cervical disc disorder with radiculopathy, unspecified cervical region (principal); M51.16 Intervertebral disc disorders with radiculopathy, lumbar region; Z97.8 Presence of other specified devices; R10.9 Unspecified abdominal pain
CPT/HCPCS: 62368; 99212; 99213; G0463

== ENCOUNTER → 2023-07-27 14:48 | Outpatient (POV) | payer OTHER, SELFPAY ==
[2023-07-27 15:02] VITALS: BP 154/102; PULSE 150; RESP 20; O2SAT 98; BMI 36.9
--- NOTE | 2023-07-27 15:37 | EXP.PAIN.SOA ---
[facility] Pain Management SOAP Note Subjective:: Patient is a pleasant 43-year-old female who presents today for follow-up. We are currently treating the patient for degenerative disc disease of cervical and lumbar spine with cervical and lumbar radiculopathy symptoms. Today she rates her pain a 7 out of 10. From our last visit she states that she is only had 1 additional bowel movement and that she continues to only urinate once every 12-15 hours. Patient does state that she continues to take Flomax which was prescribed to her by [facility] however it does not seem to make any additional improvement. From our last visit the patient has had a procedure to have a Miramontse device applied to her esophagus to prevent spasms and closing. She does state this is unrelated to her recent issues and that she has Chavez's esophagus and has been dealing with this for some time. At our last visit we did change her intrathecal medication to flex dosing with a dosage of 0.0551 mg every 6 hours for a total of 0.2676 mg/day. Patient denies any side effects from this medication. She states that she did not notice any additional improvement of any of her symptoms following this change. She states she continues to have chronic pain in her low back and neck that does affect her ability perform activities of daily living. Patient states it is very depressing having to deal with her significant pain on a day-to-day basis along with her new issues of trouble urinating and having chronic constipation. Patient has been experiencing this over the last month unrelated to any specific trauma or injury. Previously the patient was not having any problems such as these and that her intrathecal pain pump was working well for her pains on a day-to-day basis. She does state that the last doctor at [facility] did agree that the amount of dosage that she was on with her intrathecal pain pump should not account for the symptoms she is experiencing. At our last visit we did send a referral to urology and she states today that she has not heard from their office yet. She does also state that she has been trying to get disability over the last 2 years and that she has had to rely on food stamps however they need something in documentation regarding what is been going on with her health history. Review of Systems: General: No recent weight changes, no fever, no sleep disturbances Respiratory: No cough, no shortness of air, no recurring pulmonary infections Cardiovascular/peripheral vascular: No chest pain, no palpitations, no edema, no shortness of breath Gastrointestinal: Constipation Genitourinary: Urinary retention Musculoskeletal: Low back pain, neck pain Psychiatric: [Normal mood/affect] Neurological: [Denies weakness in extremities], [denies balance issues] Objective:: Physical Exam: General: Alert and oriented x3, no acute distress, pleasant and cooperative Lungs: Respirations even and unlabored, symmetrical chest expansion Eyes: PERRL Musculoskeletal: Flexion and extension of lumbar [spine] somewhat guarded secondary to pain, [antalgic gait noted] Neurological: Speech clear, no gross sensory deficit Assessment:: Degenerative disc disease of cervical and lumbar spine with cervical and lumbar radiculopathy symptoms Plan:: Patient continues to experience significant pain in her neck, low back along with continued issues of constipation and urinary retention. I have counseled the patient that I would like her to follow-up with Dr. Jimenez for additional evaluation. I have counseled the patient that she can get a copy of my dictation from today's visit and submitted to the [employer] food stamp program and see if this will cover the requirements to start her benefits. Patient will be scheduled for follow-up for tomorrow for reevaluation of symptoms and plan of care. Patient has been instructed to contact the clinic with any concerns before the next appointment. Dr. Tony whiting
== END ==
PROVIDERS: PCP Physician Assistant; Visit Provider Nurse Practitioner Family
DX: M50.10 Cervical disc disorder with radiculopathy, unspecified cervical region (principal); M51.16 Intervertebral disc disorders with radiculopathy, lumbar region; Z97.8 Presence of other specified devices
CPT/HCPCS: 62368; 99213; G0463

== ENCOUNTER → 2023-07-28 12:08 | Outpatient (POV) | payer OTHER, SELFPAY ==
[2023-07-28 12:16] VITALS: BP 133/85; PULSE 128; RESP 16; TEMP 37.1; O2SAT 99; BMI 40.7
--- NOTE | 2023-07-28 12:43 | A.OFFVIS_ITS ---
[facility] Pain Management SOAP Note Subjective:: This patient is a pleasant 43-year-old white female who we are treating for degenerative disease of the cervical and lumbar spine with cervical and lumbar radiculopathy symptoms. She is on flex dosing of intrathecal morphine of 0.05 mg boluses every 6 hours for total daily dose of 0.26 mg/day. She continues to have significant GI issues. She has significant constipation and increased pain. We are unable to increase her intrathecal morphine infusion. Given her severe side effects I do believe she would benefit from switching her intrathecal medication to bupivacaine. We will switch her over to intrathecal bupivacaine 5 mg per mill and start at 2.5 mg/day. We did interrogate the pump we did not make any changes. We also did review her thoracic and lumbar MRI which did show degenerative changes and facet arthropathy with bulging disc. Objective:: Alert and oriented x3 no acute distress. Patient does have antalgic gait. Motor strength of lower extremities is 5/5. There is no gross sensory deficit. Assessment:: Degenerative disc disease of cervical spine with cervical radiculopathy symptoms. Degenerative disc disease of lumbar spine with lumbar radiculopathy symptoms. Plan:: We will order intrathecal bupivacaine 5 mg per mill. We will switch this patient's medication out to intrathecal bupivacaine and start at 2.5 mg/day. We will plan on doing a bridge bolus since she does have a [employer] pain pump. [facility] Disclaimer: The information contained in this section may have been updated after the patient was seen, as this information can be updated by other users. Medical History Ankylosing spondylitis Anxiety Barretts esophagus Body mass index (BMI) of 40.1 to 44.9 in adult Constipation Hypertension Morbid obesity Neuropathic pain RLQ abdominal pain Surgical History History of appendectomy History of bilateral knee replacement History of cholecystectomy History of hysterectomy including cervix History of tonsillectomy Hx of gastric bypass Hx of tubal ligation Family History Other Cancer Coronary artery disease Diabetes Hypertension Social History Smoking Status: Never smoker second hand exposure: No alcohol intake: never substance use type: denies use current occupational status: other Travel in the last 8 weeks: None household members: significant other and children housing: house lives independently: Yes marital status: life partner education level: high school service: No skilled nursing: No current occupation: [employer] current occupational exposures/hazards: No caffeine: Yes physical activity: walking frequency: 5-6 times per week do you feel safe at home: Yes victim of physical abuse: No victim of emotional abuse: No victim of sexual abuse: No would you like helpful sources: No
== END | disposition home or self-care (01) ==
PROVIDERS: PCP Physician Assistant; Visit Provider Nurse Anesthetist, Certified Registered
DX: M50.10 Cervical disc disorder with radiculopathy, unspecified cervical region (principal); M51.16 Intervertebral disc disorders with radiculopathy, lumbar region; Z97.8 Presence of other specified devices
CPT/HCPCS: 99212; G0463

== ENCOUNTER 2023-08-08 08:41 | Day surgery (SDC) | payer OTHER, SELFPAY ==
[2023-08-08 09:14] VITALS: BP 102/70; PULSE 129; RESP 16; TEMP 37; O2SAT 97; BMI 39.9
[2023-08-08 09:45] VITALS: BP 155/99; PULSE 125; RESP 20; O2SAT 97
[2023-08-08 09:47] VITALS: BP 155/99; PULSE 125; RESP 18; O2SAT 97
[2023-08-08 10:00] VITALS: BP 117/84; PULSE 109; RESP 16; O2SAT 97
--- NOTE | 2023-08-08 10:13 | EXP.PAIN.PRO ---
Procedure Date: 08/08/23 Time: 09:30 Anesthesiologist:: Denis Hare CRNA Complications:: None Pre-procedure Diagnosis:: Degenerative disc lumbar spine multilevels. Lumbar radiculopathy. Degenerative disc cervical spine. Cervical radiculopathy. Post-procedure Diagnosis:: Same. Indications for Procedure:: This pleasant 43-year-old female comes our clinic today for intrathecal pain pump medication exchange. Patient is currently being managed with morphine sulfate on flex dosing 0.05 mg boluses every 6 hours. She is receiving a daily dose of 0.26 mg/day. However, she has been having continuous constipation issues since implant several months ago. Patient had a long conversation with Dr. Jimenez regarding causation of constipation. It was determined we would change her from morphine sulfate to bupivacaine 5 mg/mL. Procedure Details:: Details of the procedure explained to the patient. The patient taken to procedure room placed in sitting position. The area over the pump was cleaned using chlorhexidine as a cleansing solution. The pump was interrogated. The pump was accessed using 22-gauge inch and half needle without difficulty. 9 mL of solution was withdrawn discarded appropriately. The pump was then filled with 20 cc of a solution containing bupivacaine 5 mg/mL. Patient's intrathecal rate of bupivacaine will be 2.5 mg today. Patient tolerated procedure without difficulty. No complications. Plan and Disposition:: Patient was discharged without incident. I discussed with the patient in detail regarding the mechanism of bupivacaine intrathecally. She voices understanding. I answered her questions.
== END 2023-08-08 10:00 | disposition home or self-care (01) ==
PROVIDERS: PCP Physician Assistant; Visit Provider Nurse Anesthetist, Certified Registered
DX: M51.16 Intervertebral disc disorders with radiculopathy, lumbar region (principal); M50.10 Cervical disc disorder with radiculopathy, unspecified cervical region; Z97.8 Presence of other specified devices
CPT/HCPCS: 95991

== ENCOUNTER 2023-08-11 11:49 | Emergency (ER) | payer OTHER, SELFPAY ==
[2023-08-11 12:15] VITALS: PULSE 133; RESP 18; TEMP 36.5; O2SAT 96; BMI 41.3
--- NOTE | 2023-08-11 12:28 | EXP.UTC ---
Discharge Plan Disposition Patient Disposition: Home, Self-Care Condition: Good Prescriptions Prescriptions: New benzonatate [benzonatate] 100 mg capsule 100 mg PO TIDP PRN (Reason: Cough) Qty: 30 0RF ondansetron 4 mg Tablet,Disintegrating 4 mg PO Q8H PRN (Reason: Nausea) Qty: 12 0RF No Action cholecalciferol (vitamin D3) 50 mcg (2,000 unit) capsule 50 mcg PO DAILY pantoprazole 40 mg tablet,delayed release (DR/EC) 40 mg PO BID Linzess 290 mcg capsule 290 mcg PO DAILY sulfasalazine 500 mg tablet,delayed release (DR/EC) 500 mg PO DAILY mecobalamin (vitamin B12) 10,000 mcg recon soln 10,000 mcg SQ WEEKLY Horizant 600 mg tablet extended release 600 mg PO DAILY Humira Pen 40 mg/0.8 mL pen injector kit 40 mg SQ DIRECTED levocetirizine 5 mg tablet 5 mg PO DAILY clonazepam [Klonopin] 0.5 mg tablet 0.5 mg PO HS Qty: 30 0RF Rx Instructions: administer 30 minutes before bedtime phentermine [Adipex-P] 37.5 mg tablet 37.5 mg PO DAILY Qty: 30 0RF Rx Instructions: must administer 30 minutes before or 1-2 hours after breakfast ferrous sulfate [FeroSul] 325 mg (65 mg iron) tablet 325 mg PO DAILY Hold Instructions: Resume on 07/15/23. Rx Instructions: TAKE 1 TABLET BY MOUTH TWICE DAILY WITH FOOD buspirone 5 mg tablet 5 mg PO BIDP PRN (Reason: Anxiety) hydrochlorothiazide 25 mg tablet 25 mg PO DAILY Hold Instructions: Resume on 07/15/23. acetaminophen 325 mg Tablet 650 mg PO Q4HP PRN (Reason: Fever Or Mild Pain (1-3)) Qty: 0 0RF hydromorphone 2 mg/mL Syringe 2 mg IV Q4HP PRN (Reason: Severe Pain (7-10)) Qty: 0 0RF promethazine 25 mg Tablet 25 mg PO Q8HP PRN (Reason: Nausea And Vomiting) Qty: 0 0RF ondansetron HCl (PF) 4 mg/2 mL Solution 4 mg IV Q8HP PRN (Reason: Nausea) Qty: 0 0RF pantoprazole [Protonix] 40 mg recon soln 40 mg IV BID heparin (porcine) 5,000 unit/mL solution 5,000 unit SQ Q8H tizanidine 4 mg tablet 4 mg PO TID Qty: 90 0RF fluticasone propionate 120 SPR/BOT bottle 1 spr NS DAILY Hold Instructions: Resume on 07/15/23. montelukast 10 mg tablet 10 mg PO PM Hold Instructions: Resume on 07/15/23. morphine (PF) 1 mg/mL Solution 1 mg intrathecal CONT Rx Instructions: REFER TO TELE READING FOR CURRENT DAILY DOSE topiramate [Topamax] 25 mg tablet 25 mg PO BID lisinopril 10 mg tablet 10 mg PO DAILY Hold Instructions: Resume on 07/15/23. bupropion HCl [Wellbutrin XL] 150 mg tablet extended release 24 hr 150 mg PO DAILY hydrochlorothiazide 25 mg tablet 25 mg PO QAM Referrals Follow up/Referrals: Sarita Gómez PA [Primary Care Provider] - See instructions Activity Restrictions/Add. Instructions Additional Instructions/Restrictions: Drink plenty of fluids. Take tylenol or ibuprofen for pain or fever. Take the medications as directed. Follow up with your regular doctor. GO TO THE ER FOR ANY WORSENING SYMPTOMS Clinical Impressions Clinical Impression: Acute viral syndrome Instructions Patient Instructions: Coronavirus Disease 2019, Preventing the Spread of Coronavirus Discharge Instructions Discharge ED Provider: Joe Callahan [facility] [place] HPI General Stated complaint: no taste/smell, body aches Time Seen by Provider: 08/11/23 12:27 History of Present Illness Provider Complaint: She states that for the past 2 days she has had fever, chills, body aches, malaise and loss of smell/taste. Related Data Home Medications Medication Instructions Recorded Confirmed cholecalciferol (vitamin D3) 50 50 mcg PO DAILY Supplement 11/24/21 08/08/23 mcg (2,000 unit) capsule fluticasone propionate 50 1 spr intranasal DAILY Allergy 01/03/22 08/08/23 mcg/actuation nasal symptoms spray,suspension montelukast 10 mg tablet 10 mg PO PM Allergy Symptoms 08/08/22 08/08/23 pantopr
[2023-08-11 13:08] VITALS: BP 0/0; PULSE 133; RESP 18; TEMP 36.5; O2SAT 96
== END 2023-08-11 13:08 | disposition home or self-care (01) ==
PROVIDERS: Emergency Provider Nurse Practitioner Family; PCP Physician Assistant
DX: R50.9 Fever, unspecified (principal); R53.81 Other malaise; R43.9 Unspecified disturbances of smell and taste; B34.9 Viral infection, unspecified; I10 Essential (primary) hypertension; E66.01 Morbid (severe) obesity due to excess calories; M45.9 Ankylosing spondylitis of unspecified sites in spine; K22.70 Barrett's esophagus without dysplasia; M79.2 Neuralgia and neuritis, unspecified; F41.9 Anxiety disorder, unspecified; Z68.41 Body mass index [BMI] 40.0-44.9, adult
CPT/HCPCS: 87635; 99212; 99214; G0463

== ENCOUNTER → 2023-08-14 09:47 | Outpatient (POV) | payer OTHER, SELFPAY ==
[2023-08-14 10:12] VITALS: BP 186/99; PULSE 102; RESP 20; BMI 39.9
--- NOTE | 2023-08-14 10:52 | EXP.PAIN.PRO ---
Procedure Date: 08/14/23 Time: 10:00 Anesthesiologist:: Denis Hare CRNA Complications:: None Pre-procedure Diagnosis:: Degenerative disc sees lumbar spine multilevels. Lumbar radiculopathy. Degenerative disc disease cervical spine. Cervical radiculopathy. Post-procedure Diagnosis:: Same. Indications for Procedure:: This patient is a very pleasant 43-year-old female that comes our clinic today for intrathecal pain pump reprogram. Patient's pump medication was exchanged on 08/08/2023 from morphine sulfate to bupivacaine 5 mg/mL. Patient's intrathecal rate of bupivacaine was started at 2.5 mg/day. Patient has had total resolve regarding side effects she was experiencing with morphine sulfate. Patient reports no more constipation or urinary retention. However, she is having pain in the low back as well as bilateral hip and legs she reports is 8/10. She described the pain as constant, dull, aching, sharp, stabbing. We will increase her pain pump rate today by 20%. Discussed in details with the patient regarding the need to see her on a weekly basis until we get her pain under control. She voices understanding. I answered her questions. Procedure Details:: Details of the procedure explained to the patient. The patient's pump was interrogated. The pump rate will be increased to 3.00 to 1 mg/day. Patient tolerated procedure without difficulty. No complications. Plan and Disposition:: Patient was discharged without incident. We will see her next week for a follow-up visit for interrogation and reprogramming if necessary.
== END | disposition home or self-care (01) ==
PROVIDERS: PCP Physician Assistant; Visit Provider Nurse Anesthetist, Certified Registered
DX: M51.16 Intervertebral disc disorders with radiculopathy, lumbar region (principal); M50.10 Cervical disc disorder with radiculopathy, unspecified cervical region; Z97.8 Presence of other specified devices
CPT/HCPCS: 62368; 99212; G0463

== ENCOUNTER → 2023-08-21 13:32 | Outpatient (POV) | payer OTHER, SELFPAY ==
--- NOTE | 2023-08-21 14:04 | EXP.PAIN.PRO ---
Procedure Date: 08/21/23 Time: 14:04 Anesthesiologist:: Yolie Pierre APRN Complications:: None Pre-procedure Diagnosis:: Degenerative disc disease of lumbar spine with lumbar radiculopathy symptoms, degenerative disc disease of cervical spine with cervical radiculopathy symptoms Post-procedure Diagnosis:: Same Indications for Procedure:: Patient is a pleasant 43-year-old female who presents today for follow-up. We are currently treating the patient for degenerative disc disease of lumbar and cervical spine with cervical and lumbar radiculopathy symptoms. Today she rates her pain a 6 out of 10. Patient denies any new trauma or injury. She denies any change location or type of pain she experiences. Patient did have her morphine pump changed to bupivacaine and is currently at 5 mg/mL with a daily dose of 3.0021 mg/day. Patient does state approximately 3 days after having her medication change she did start experiencing body aches and abnormal taste. Patient states that where she could not taste anything she thought she possibly had COVID and went for testing which was negative. Patient states that she is continued to have the body aches and that the taste did come back however it is still altered and she is unsure if this is related to her pump medication. Patient is also managed with tizanidine 4 mg 3 times daily from our office and Horizant 600 mg daily along with clonazepam 0.5 mg daily from outside providers.. Patient denies any side effects from this medication. Patient's previous issues of having bowel and bladder problems/retention with the morphine have completely resolved at this time. Her Amari is [id number]. Its been reviewed and appropriate. Physical Exam: General: Alert and oriented x3, no acute distress, pleasant and cooperative Lungs: Respirations even and unlabored, symmetrical chest expansion Eyes: PERRL Musculoskeletal: Flexion and extension of lumbar [spine] somewhat guarded secondary to pain, [antalgic gait noted] Neurological: Speech clear, no gross sensory deficit Procedure Details:: Informed consent was obtained and the risk and benefits of the procedure were explained to the patient. Patient was taken to the procedure room where noninvasive monitoring was placed including noninvasive blood pressure cuff and pulse oximeter. Patient's pump was interrogated and was reprogrammed to bupivacaine 2.3988 mg/day. The patient tolerated the procedure well with no complications. Plan and Disposition:: I have discussed with the patient that the symptoms she is experiencing could very well be related to the bupivacaine medication. Patient tolerated her intrathecal decrease with no complications. She is scheduled for a intrathecal refill next week. I have counseled the patient to let us know if her symptoms improve following this decrease. Patient will return to clinic in 1 week for reevaluation of symptoms and intrathecal refill. We will see the patient back in the clinic at the next intrathecal refill. Patient has been instructed to contact the clinic with any concerns before the next appointment. Dr. Jimenez has reviewed this note and agrees with this plan of care. This note was dictated using voice recognition software and make contain errors or omissions. -- It Is medically necessary for this patient to continue to have their intrathecal pump refilled at regular intervals. This patient had an intrathecal pain pump implanted after meeting criteria of chronic intractable pain for greater than 3 months and failing conservative treatments. Patient has committed and been compliant to the treatment plan and all planned follow up care. Since implantation of the intrathecal pain pump, the patient has had decreased pain and been more functional. Oral medications have been reduced including intake of oral opioids. Patient continues to do well with intrathecal therapy with decrease in pain symptoms and increase in functional status. Stopping
[2023-08-21 15:24] VITALS: BP 145/97; PULSE 139; RESP 19; O2SAT 97; BMI 39.9
== END | disposition home or self-care (01) ==
PROVIDERS: PCP Physician Assistant; Visit Provider Nurse Practitioner Family
DX: M51.16 Intervertebral disc disorders with radiculopathy, lumbar region (principal); M50.10 Cervical disc disorder with radiculopathy, unspecified cervical region; Z97.8 Presence of other specified devices
CPT/HCPCS: 62368; 99213; G0463

== ENCOUNTER → 2023-08-29 08:58 | Day surgery (SDC) | payer OTHER, SELFPAY ==
[2023-08-29 09:17] VITALS: BP 113/85; PULSE 125; RESP 18; TEMP 36.6; O2SAT 99; BMI 39.9
== END ==
PROVIDERS: PCP Physician Assistant; Visit Provider Nurse Anesthetist, Certified Registered
DX: Z53.9 Procedure and treatment not carried out, unspecified reason (principal)

== ENCOUNTER 2023-08-30 14:39 | Emergency (ER) | payer OTHER, SELFPAY ==
--- NOTE | 2023-08-30 14:44 | EXP.UTC ---
Discharge Plan Disposition Patient Disposition: Home, Self-Care Condition: Good Prescriptions Prescriptions: New azithromycin [Zithromax] 250 mg tablet 250 mg PO UD DOSE PK Qty: 6 0RF Rx Instructions: Take two (2) tablets today, then one (1) tablet days #2 thru #5 benzonatate [benzonatate] 100 mg capsule 100 mg PO TIDP PRN (Reason: Cough) Qty: 30 0RF methylprednisolone 4 mg Tablets,Dose Pack 4 mg PO DIRECTED Qty: 21 0RF No Action cholecalciferol (vitamin D3) 50 mcg (2,000 unit) capsule 50 mcg PO DAILY pantoprazole 40 mg tablet,delayed release (DR/EC) 40 mg PO BID Linzess 290 mcg capsule 290 mcg PO DAILY sulfasalazine 500 mg tablet,delayed release (DR/EC) 500 mg PO DAILY mecobalamin (vitamin B12) 10,000 mcg recon soln 10,000 mcg SQ WEEKLY Horizant 600 mg tablet extended release 600 mg PO DAILY Humira Pen 40 mg/0.8 mL pen injector kit 40 mg SQ DIRECTED levocetirizine 5 mg tablet 5 mg PO DAILY phentermine [Adipex-P] 37.5 mg tablet 37.5 mg PO DAILY Qty: 30 0RF Rx Instructions: must administer 30 minutes before or 1-2 hours after breakfast clonazepam [Klonopin] 0.5 mg tablet 0.5 mg PO HS Qty: 30 0RF Rx Instructions: administer 30 minutes before bedtime ferrous sulfate [FeroSul] 325 mg (65 mg iron) tablet 325 mg PO DAILY Hold Instructions: Resume on 07/15/23. Rx Instructions: TAKE 1 TABLET BY MOUTH TWICE DAILY WITH FOOD buspirone 5 mg tablet 5 mg PO BIDP PRN (Reason: Anxiety) hydrochlorothiazide 25 mg tablet 25 mg PO DAILY Hold Instructions: Resume on 07/15/23. acetaminophen 325 mg Tablet 650 mg PO Q4HP PRN (Reason: Fever Or Mild Pain (1-3)) Qty: 0 0RF hydromorphone 2 mg/mL Syringe 2 mg IV Q4HP PRN (Reason: Severe Pain (7-10)) Qty: 0 0RF promethazine 25 mg Tablet 25 mg PO Q8HP PRN (Reason: Nausea And Vomiting) Qty: 0 0RF ondansetron HCl (PF) 4 mg/2 mL Solution 4 mg IV Q8HP PRN (Reason: Nausea) Qty: 0 0RF pantoprazole [Protonix] 40 mg recon soln 40 mg IV BID heparin (porcine) 5,000 unit/mL solution 5,000 unit SQ Q8H benzonatate [benzonatate] 100 mg capsule 100 mg PO TIDP PRN (Reason: Cough) Qty: 30 0RF ondansetron 4 mg Tablet,Disintegrating 4 mg PO Q8H PRN (Reason: Nausea) Qty: 12 0RF tizanidine 4 mg tablet 4 mg PO TID Qty: 90 0RF fluticasone propionate 120 SPR/BOT bottle 1 spr NS DAILY Hold Instructions: Resume on 07/15/23. montelukast 10 mg tablet 10 mg PO PM Hold Instructions: Resume on 07/15/23. morphine (PF) 1 mg/mL Solution 1 mg intrathecal CONT Rx Instructions: REFER TO TELE READING FOR CURRENT DAILY DOSE topiramate [Topamax] 25 mg tablet 25 mg PO BID lisinopril 10 mg tablet 10 mg PO DAILY Hold Instructions: Resume on 07/15/23. bupropion HCl [Wellbutrin XL] 150 mg tablet extended release 24 hr 150 mg PO DAILY Referrals Follow up/Referrals: Sarita Gómez PA [Primary Care Provider] - See instructions Activity Restrictions/Add. Instructions Additional Instructions/Restrictions: Drink plenty of fluids. Take tylenol or ibuprofen for pain or fever. Take the medications as directed. Follow up with your regular doctor. GO TO THE ER FOR ANY WORSENING SYMPTOMS Clinical Impressions Clinical Impression: Otitis media, Sinusitis Instructions Patient Instructions: Sinusitis, DI for Sinusitis Discharge ED Provider: Joe Callahan [facility] [place] HPI General Stated complaint: LT EAR AND THROAT HURTS Time Seen by Provider: 08/30/23 14:44 History of Present Illness Provider Complaint: She c/o left ear and sore throat for the past 2 days. Related Data Home Medications Medication Instructions Recorded Confirmed cholecalciferol (vitamin D3) 50 50 mcg PO DAILY Supplement 11/24/21 08/29/23 mcg (2,000 unit) capsule fluticasone propionate 50 1 sp
[2023-08-30 14:50] VITALS: BP 165/94; PULSE 111; RESP 18; TEMP 36.5; O2SAT 100; BMI 25.6
[2023-08-30 15:04] LABS: UTC Strep Screen (Rapid) Negative (Negative)
[2023-08-30 15:57] VITALS: BP 165/94; PULSE 111; RESP 18; TEMP 36.5; O2SAT 100
== END 2023-08-30 15:56 | disposition home or self-care (01) ==
PROVIDERS: Emergency Provider Nurse Practitioner Family; PCP Physician Assistant
DX: J01.90 Acute sinusitis, unspecified (principal); H66.93 Otitis media, unspecified, bilateral; J02.9 Acute pharyngitis, unspecified
CPT/HCPCS: 87880; 99212; 99214; G0463

== ENCOUNTER 2023-09-05 11:32 | Day surgery (SDC) | payer OTHER, SELFPAY ==
[2023-09-05 11:43] VITALS: BP 142/101; PULSE 66; RESP 18; TEMP 36.7; O2SAT 99; BMI 39.9
[2023-09-05 12:28] VITALS: BP 130/90; PULSE 99; RESP 16; O2SAT 100
--- NOTE | 2023-09-05 12:28 | EXP.PAIN.PRO ---
Procedure Date: 09/05/23 Time: 12:15 Anesthesiologist:: Denis Hare CRNA Complications:: None Pre-procedure Diagnosis:: Degenerative disc lumbar spine multilevels. Lumbar radiculopathy. Degenerative disc cervical spine. Cervical radiculopathy. Post-procedure Diagnosis:: Same. Indications for Procedure:: Patient is a very pleasant 43-year-old female that comes our clinic today for intrathecal pain pump refill and interrogation. She is currently being managed with bupivacaine 5 mg/mL at a rate of 2.3988 mg/day. Patient requesting the addition of PTM. I think this is reasonable. We will set this up for her. It will be 10% of her current rate. 4 times daily. Procedure Details:: Details of the procedure explained to the patient. The patient taken procedure room placed in the sitting position. The area with pumps cleansed using chlorhexidine's cleansing solution. The pump was interrogated. The pump was accessed with ease using a 22-gauge inch and a half needle. 5 mL of solution was withdrawn and discarded appropriately. The pump was then filled with 20 cc of a solution containing bupivacaine 5 mg/mL. PTM will be added 4 times daily. Patient tolerated procedure without difficulty. There are no complications. Plan and Disposition:: Patient was discharged without incident.
== END 2023-09-05 12:28 | disposition home or self-care (01) ==
PROVIDERS: PCP Physician Assistant; Visit Provider Nurse Anesthetist, Certified Registered
DX: M51.16 Intervertebral disc disorders with radiculopathy, lumbar region (principal); M50.10 Cervical disc disorder with radiculopathy, unspecified cervical region; Z97.8 Presence of other specified devices
CPT/HCPCS: 95991

== ENCOUNTER 2023-10-03 08:46 | Day surgery (SDC) | payer OTHER, SELFPAY ==
[2023-10-03 09:12] VITALS: BP 154/86; PULSE 113; RESP 16; TEMP 36.8; O2SAT 99; BMI 39.9
[2023-10-03 09:22] VITALS: BP 180/94; PULSE 106; RESP 20; O2SAT 97
[2023-10-03 09:28] VITALS: BP 187/94; PULSE 106; RESP 20; O2SAT 97
[2023-10-03 09:37] VITALS: BP 133/79; PULSE 85; RESP 16; O2SAT 99
--- NOTE | 2023-10-03 09:55 | EXP.PAIN.PRO ---
Procedure Date: 10/03/23 Time: 09:10 Anesthesiologist:: Denis Hare CRNA Complications:: None Pre-procedure Diagnosis:: Degenerative disc lumbar spine multilevels. Lumbar radiculopathy. Lumbar postlaminectomy syndrome. Post-procedure Diagnosis:: Same. Indications for Procedure:: Patient is a very pleasant 43-year-old female comes our clinic today for intrathecal pain pump interrogation refill. Patient currently being managed with bupivacaine 5 mg/mL at a rate of 2.3988 mg/day. We are changing the patient's concentration to 10 mg/mL at today's refill. She is doing very well with her current settings. She is not requesting any changes today. She does not report any side effects or complications. Procedure Details:: Details of the procedure explained to the patient. The patient taken to procedure room placed in sitting position. The area over the pump is cleansed using chlorhexidine's cleansing solution. The pump was interrogated. The pump was accessed with ease using a 22-gauge inch and half needle. 6 mL of solution was withdrawn from the pump and discarded appropriately. The pump was then filled with 20 cc of a solution containing bupivacaine 10 mg/mL. Rate will remain the same 2.3988 mg/day. Patient tolerated procedure without difficulty. There are no complications Plan and Disposition:: Patient was discharged without incident.
== END 2023-10-03 09:37 | disposition home or self-care (01) ==
LOC: SC.PAINP 08:47
PROVIDERS: PCP Physician Assistant; Visit Provider Nurse Anesthetist, Certified Registered
DX: M51.16 Intervertebral disc disorders with radiculopathy, lumbar region (principal); M96.1 Postlaminectomy syndrome, not elsewhere classified; Z97.8 Presence of other specified devices
CPT/HCPCS: 95991

== ENCOUNTER 2023-10-04 20:31 | Observation (INO) | payer OTHER, SELFPAY ==
[2023-10-04 20:31] VITALS: BP 159/101; PULSE 110; RESP 20; TEMP 36.7; O2SAT 98; BMI 39.9
--- NOTE | 2023-10-04 20:33 | ECG_ITS ---
APPROVED REPORT Exam: Resting ECG HR:113 bpm ECG Measurements Heart Rate 113 AXES ND 124 P 58 QRSd 71 QRS 73 QT 314 T 22 QTc 381 Conclusion SINUS TACHYCARDIA Left atrial abnormality ABNORMAL RHYTHM ECG UNCONFIRMED REPORT Electronically signed by : Michael Campo MD 10/06/2023 16:33:53
--- NOTE | 2023-10-04 20:41 | CT_ITS ---
PROCEDURE INFORMATION: Exam: CTA Chest With Contrast Exam date and time: 10/04/2023 9:20 PM Age: 43 years old Clinical indication: Sternal or substernal pain; Additional info: Cp, tachy, followed by vomiting blood 24h later TECHNIQUE: Imaging protocol: Computed tomographic angiography of the chest with contrast. Exam focused on the arteries. 3D rendering (Not supervised by radiologist): MIP and/or 3D reconstructed images were created by the technologist. Radiation optimization: All CT scans at this facility use at least one of these dose optimization techniques: automated exposure control; mA and/or kV adjustment per patient size (includes targeted exams where dose is matched to clinical indication); or iterative reconstruction. Contrast material: ISOVUE 370; Contrast volume: 70 ml; Contrast route: INTRAVENOUS (IV); REPORTING DATA: Count of CT and Cardiac NM exams in prior 12 months: This patient has received 11 known CTs and 0 known cardiac nuclear medicine studies in the 12 months prior to the current study. COMPARISON: CT ANGIO CHEST PE PROTOCOL 01/02/2023 10:42 AM FINDINGS: Pulmonary arteries: Normal. No pulmonary emboli. Aorta: Unremarkable. No aortic aneurysm. No aortic dissection. Lungs: Unremarkable. No consolidation. No masses. Pleural spaces: Unremarkable. No pneumothorax. No pleural effusion. Heart: Unremarkable. No cardiomegaly. No pericardial effusion. Lymph nodes: Unremarkable. No enlarged lymph nodes. Gallbladder and bile ducts: Cholecystectomy. Stomach and bowel: Postsurgical changes status post gastric bypass. Bones/joints: Unremarkable. No acute fracture. Soft tissues: Unremarkable. IMPRESSION: No acute findings.
--- NOTE | 2023-10-04 20:41 | XR_ITS ---
PROCEDURE INFORMATION: Exam: XR Chest Exam date and time: 10/04/2023 9:21 PM Age: 43 years old Clinical indication: Sternal or substernal pain; Additional info: Cp TECHNIQUE: Imaging protocol: Radiologic exam of the chest. Views: 1 view. COMPARISON: CT ANGIO CHEST PE PROTOCOL 10/04/2023 9:20 PM FINDINGS: Lungs: Unremarkable. No consolidation. Pleural spaces: Unremarkable. No pleural effusion. No pneumothorax. Heart/Mediastinum: Unremarkable. No cardiomegaly. Bones/joints: Unremarkable. IMPRESSION: No acute findings.
--- NOTE | 2023-10-04 20:45 | HMH.EDCP ---
Discharge Plan Disposition Patient Disposition: Admitted Clinical Impressions Clinical Impression: Chest pain, Hematemesis Discharge ED Provider: Arnaud Ozuna [facility] General Chief Complaint: Chest Pain Stated Complaint: Chest Pain Time Seen by Provider: 10/04/23 20:41 Mode of Arrival: Wheelchair Source of Information: Patient Limitations: No Limitations Description of Symptoms (Recalled from ER Triage Doc. by RN): Patient reports chest pain in left chest 05/15 that started yesterday shortly after they refilled her pain pump. Patient reports they refilled her pain pump with bupivicaine vs the morphine that they had been filling it with. They had switched from morphine due to patient having inability to have bowel movements and inability to urinate. Patient reports severe muscle spasms and generalized pain since the change as well. Patient states that approximately 2 hours prior to arrival she began having emesis with bright red blood. Patient reports 7 episodes of emesis. Patient denies abdominal pain at this time. History of Present Illness HPI narrative: Patient is a 43-year-old female with past medical history of ankylosing spondylitis, previous gastric sleeve, chronic back pain with indwelling intrathecal pain pump who presents emergency department for evaluation of multiple complaints. Patient had her back pain pump medication switched yesterday, since then she has had diffuse body spasms which she states happened last time that her medication was refilled. However over the last 24 hours she had substernal chest pain, moderate to severe in intensity, radiating to her left shoulder which was new. Over the last 2030 minutes she has had multiple episodes of hematemesis. She does have a history of Chavez's esophagus and takes Protonix every day. No other acute complaints at this time. Related Data Home Medications Medication Instructions Recorded Confirmed cholecalciferol (vitamin D3) 50 50 mcg PO DAILY Supplement 11/24/21 10/03/23 mcg (2,000 unit) capsule fluticasone propionate 50 1 spr intranasal DAILY Allergy 01/03/22 10/03/23 mcg/actuation nasal symptoms spray,suspension linaclotide 290 mcg capsule 290 mcg PO DAILY constipation 01/24/23 10/03/23 (Linzess) sulfasalazine 500 mg 500 mg PO DAILY inflammation 05/05/23 10/03/23 tablet,delayed release adalimumab 40 mg/0.8 mL 40 mg SQ DIRECTED inflammation 06/26/23 10/03/23 subcutaneous pen kit (Humira Pen) levocetirizine 5 mg tablet 5 mg PO DAILY Allergy Symptoms 06/26/23 10/03/23 lisinopril 10 mg tablet 10 mg PO DAILY High Blood Pressure 06/29/23 10/03/23 mecobalamin (vitamin B12) 10,000 10,000 mcg SQ WEEKLY Supplement 07/05/23 10/03/23 mcg solution for injection hydrochlorothiazide 25 mg tablet 25 mg PO DAILY Fluid 07/06/23 10/03/23 Previous Rx's Medication Instructions Recorded phentermine 37.5 mg tablet 37.5 mg PO DAILY Weight Loss #30 09/08/23 (Adipex-P) tabs gabapentin enacarbil 600 mg See Rx Instructions .Route 09/14/23 tablet,extended release (Horizant .COMPLEX #30 tabs ER) duloxetine 30 mg capsule,delayed 30 mg PO DAILY #14 caps 09/21/23 release (Cymbalta) duloxetine 60 mg capsule,delayed 60 mg PO DAILY #30 caps 09/21/23 release (Cymbalta) clonazepam 0.5 mg tablet (Klonopin) 0.5 mg PO HS Anxiety #30 tabs 10/03/23 tizanidine 4 mg tablet 4 mg PO TID muscle spasms #90 tabs 10/04/23 Allergies Allergy/AdvReac Type Severity Reaction Status Date / Time cefaclor [CEFACLOR] Allergy Unknown Verified 10/03/23 09:12 Penicillins [PENICILLINS] Allergy Unknown Verified 10/03/23 09:12 Cephalosporins Allergy Verified 10/03/23 09:12 trazodone AdvReac Severe Hallucinati Verified 10/03/23 09:12 ng amlodipine AdvReac Mild edema Verified 10/03/23 09:12 [facility] Disclaimer: The information contained in this section may have been updated after the patient was seen, as this information can be updated by other users. Medical History (Upd
[2023-10-04 20:58] LABS: Basophils % 0.6 % (0.1-2.0); Eosinophils # 0.1 K/mm3 (0.0-0.4); Eosinophils % 1.2 % (0.1-12.0); Hematocrit 39.3 % (37.0-47.0); Hemoglobin 13.5 g/dL (12.2-16.2); Lymphocytes % 48.8 % (10-50); Mean Corpuscular HGB Conc 34.2 g/dL (31.8-35.4); Mean Corpuscular Hemoglobin 31.8 pg (27.0-31.2); Mean Platelet Volume 8.9 fl (7.4-10.4); Monocytes # 0.5 K/mm3 (0.1-1.0); Monocytes % 11.4 % (1.7-9.3); Neutrophils # 1.5 K/mm3 (1.8-7.8); Neutrophils % 37.9 % (37.0-80.0); Platelet Count 266 K/mm3 (142-424); Red Blood Count 4.23 M/mm3 (4.20-5.40); Red Cell Distribution Width 13.4 % (11.5-17.5); White Blood Count 4.1 K/mm3 (4.8-10.8)
[2023-10-04 21:01] VITALS: BP 136/87; PULSE 92; O2SAT 100
[2023-10-04 21:03] LABS: Chloride 109 mmol/L (98-107); Potassium 3.8 mmoL/L (3.5-5.1); Sodium 141 mmol/L (136-145)
[2023-10-04 21:05] LABS: Lipase 87 U/L (23-300)
[2023-10-04 21:06] LABS: Alanine Aminotransferase 19 U/L (12-78); Albumin Level 4.2 g/dl (3.5-5.0); Albumin/Globulin Ratio 1.5 (1.1-1.8); Alkaline Phosphatase 77 U/L (38-126); Anion Gap 10.8 mEq/L (5-15); Aspartate Amino Transferase 23 U/L (14-36); Bilirubin,Total 0.4 mg/dl (0.2-1.3); Blood Urea Nitrogen 13 mg/dl (7-17); Carbon Dioxide 25 mmol/L (22.0-30.0); Creatinine Clearance Estimated 159 mL/min (50-200); Estimated Glomerular Filt Rate 79 ml/min (>60); GFR (African American) 96 ML/MIN (>60); Globulin 2.8 g/dL (1.3-3.2)
[2023-10-04 21:07] LABS: Calcium 8.3 mg/dl (8.4-10.2); Glucose 96 mg/dl (74-100)
[2023-10-04 21:20] LABS: Troponin I < 0.01 ng/ml (0.00-0.034)
[2023-10-04 21:31] VITALS: BP 136/75; PULSE 80; O2SAT 100
--- NOTE | 2023-10-04 22:29 | PC.NURSE ---
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
--- NOTE | 2023-10-04 22:31 | PC.NURSE ---
OBSERVATION ADMISSION TO 212 TO SERVICE OF THE HOSPITALIST WITH DX OF GI BLEED.
[2023-10-04 22:41] VITALS: BP 138/74; PULSE 88; RESP 18; TEMP 36.7; O2SAT 98
--- NOTE | 2023-10-04 22:54 | PC.NURSE ---
RECEIVED PHONE REPORT FROM RADHA RN/ED NURSE AT [id number]. PATIENT IS A 43 YO FEMALE WITH POSSIBLE GI BLEED.
--- NOTE | 2023-10-04 23:02 | EXP.HP ---
History of Present Illness *Admission Date: 10/04/23 *Reason for visit:: hematemesis *History of present illness: This is a 43-year-old obese female with past medical history of ankylosing spondylitis, previous gastric sleeve, chronic back pain with indwelling intrathecal pain pump who presented to emergency department for evaluation after reported bloody vomit episodes at home. Also complaining of central chest pain. She does have a history of Chavez's esophagus and takes Protonix every day. Patient had her back pain pump medication switched yesterday, from morphine to bupivaaine, since then she has had referred symptoms and diffuse body spasms which she states happened last time that her medication was refilled . No other acute complaints at this time. Admitted for treatment. [facility] Disclaimer: The information contained in this section may have been updated after the patient was seen, as this information can be updated by other users. Medical History (Updated 10/05/23 @ 02:18 by Silvio Suarez APRN) Ankylosing spondylitis Anxiety Barretts esophagus Body mass index (BMI) of 40.1 to 44.9 in adult Constipation Fracture of greater tuberosity of humerus Fracture of humeral head Hypertension Morbid obesity Neuropathic pain RLQ abdominal pain Surgical History History of appendectomy History of bilateral knee replacement History of cholecystectomy History of hysterectomy including cervix History of tonsillectomy Hx of gastric bypass Hx of tubal ligation Family History Other Cancer Coronary artery disease Diabetes Hypertension Social History (Updated 10/04/23 @ 23:39 by Karin Vasquez RN) Smoking Status: Never smoker second hand exposure: No alcohol intake: never substance use type: denies use current occupational status: unemployed Travel in the last 8 weeks: None household members: significant other and children housing: house lives independently: Yes marital status: life partner education level: high school service: No assisted: No current occupation: [employer] current occupational exposures/hazards: No caffeine: Yes physical activity: walking frequency: 5-6 times per week do you feel safe at home: Yes victim of physical abuse: No victim of emotional abuse: No victim of sexual abuse: No would you like helpful sources: No Review of Systems Review of Systems Review of systems:: pertinent systems reviewed and negative unless documented below Meds Home Medications and Allergies Home Medications Medication Instructions Recorded Confirmed Type cholecalciferol (vitamin D3) 50 50 mcg PO DAILY Supplement 11/24/21 10/04/23 History mcg (2,000 unit) capsule fluticasone propionate 50 1 spr intranasal DAILY Allergy 01/03/22 10/04/23 History mcg/actuation nasal symptoms spray,suspension linaclotide 290 mcg capsule 290 mcg PO DAILY constipation 01/24/23 10/04/23 History (Linzess) sulfasalazine 500 mg 500 mg PO DAILY inflammation 05/05/23 10/04/23 History tablet,delayed release adalimumab 40 mg/0.8 mL 40 mg SQ DIRECTED inflammation 06/26/23 10/04/23 History subcutaneous pen kit (Humira Pen) levocetirizine 5 mg tablet 5 mg PO DAILY Allergy Symptoms 06/26/23 10/04/23 History lisinopril 10 mg tablet 10 mg PO DAILY High Blood Pressure 06/29/23 10/04/23 History mecobalamin (vitamin B12) 10,000 10,000 mcg SQ WEEKLY Supplement 07/05/23 10/04/23 History mcg solution for injection hydrochlorothiazide 25 mg tablet 25 mg PO DAILY Fluid 07/06/23 10/04/23 History phentermine 37.5 mg tablet 37.5 mg PO DAILY Weight Loss #30 09/08/23 10/04/23 Rx (Adipex-P) tabs gabapentin enacarbil 600 mg See Rx Instructions .Route 09/14/23 10/04/23 Rx tablet,extended release (Horizant .COMPLEX #30 tabs ER) duloxetine 30 mg capsule,delaye
--- NOTE | 2023-10-04 23:26 | PC.NURSE ---
pt arrived to the floor via wheelchair @23:19
--- NOTE | 2023-10-04 23:31 | PC.NURSE ---
2325ARRIVED TO THE FLOOR VIA W/C.
[2023-10-04 23:32] VITALS: O2SAT 100
[2023-10-05 00:26] LABS: Troponin I < 0.01 ng/ml (0.00-0.034)
[2023-10-05 03:19] LABS: Troponin I < 0.01 ng/ml (0.00-0.034)
[2023-10-05 04:00] VITALS: BP 132/76; PULSE 69; RESP 17; TEMP 37; O2SAT 98; BMI 42.0
--- NOTE | 2023-10-05 05:03 | PC.NURSE ---
NO VOMITING SINCE ADMISSION. NO S/S OF GI BLEED. VSS/AFEBRILE. REMAINS NPO PENDING SURGICAL CONSULT.
[2023-10-05 06:49] LABS: Basophils % 0.5 % (0.1-2.0); Hematocrit 37.3 % (37.0-47.0); Hemoglobin 12.6 g/dL (12.2-16.2); Lymphocytes # 1.8 K/mm3 (0.7-4.5); Lymphocytes % 54.6 % (10-50); Mean Corpuscular HGB Conc 33.6 g/dL (31.8-35.4); Mean Corpuscular Hemoglobin 31.3 pg (27.0-31.2); Mean Corpuscular Volume 93.2 fl (81-99); Mean Platelet Volume 9.1 fl (7.4-10.4); Monocytes # 0.4 K/mm3 (0.1-1.0); Monocytes % 11.9 % (1.7-9.3); Neutrophils % 31.9 % (37.0-80.0); Platelet Count 232 K/mm3 (142-424); Red Blood Count 4.01 M/mm3 (4.20-5.40); Red Cell Distribution Width 13.3 % (11.5-17.5); White Blood Count 3.3 K/mm3 (4.8-10.8)
--- NOTE | 2023-10-05 06:53 | EXP.SURG.CON ---
History of Present Illness *Admission Date: 10/04/23 *Reason for visit:: Hematemesis *History of present illness: This is a 43-year-old female seen in consultation after presenting with complaint of hematemesis. She states that she is currently feeling better . No additional hematemesis since admission. She reports history of Chavez's esophagus and has been a patient of Dr. Garza in [place] for years . She states that she is overdue for repeat esophagogastroduodenoscopy by Dr. Garza. Forwarded from admission H&P/emergency department evaluation: This is a 43-year-old obese female with past medical history of ankylosing spondylitis, previous gastric sleeve, chronic back pain with indwelling intrathecal pain pump who presented to emergency department for evaluation after reported bloody vomit episodes at home. Also complaining of central chest pain. She does have a history of Chavez's esophagus and takes Protonix every day. Patient had her back pain pump medication switched yesterday, from morphine to bupivaaine, since then she has had referred symptoms and diffuse body spasms which she states happened last time that her medication was refilled . No other acute complaints at this time. Admitted for treatment. [facility] Disclaimer: The information contained in this section may have been updated after the patient was seen, as this information can be updated by other users. Medical History (Updated 10/05/23 @ 07:11 by Lorenzo Frankel MD) Ankylosing spondylitis Anxiety Barretts esophagus Body mass index (BMI) of 40.1 to 44.9 in adult Constipation Fracture of greater tuberosity of humerus Fracture of humeral head Hypertension Morbid obesity Neuropathic pain RLQ abdominal pain Surgical History History of appendectomy History of bilateral knee replacement History of cholecystectomy History of hysterectomy including cervix History of tonsillectomy Hx of gastric bypass Hx of tubal ligation Family History Other Cancer Coronary artery disease Diabetes Hypertension Social History (Updated 10/04/23 @ 23:39 by Karin Vasquez RN) Smoking Status: Never smoker second hand exposure: No alcohol intake: never substance use type: denies use current occupational status: unemployed Travel in the last 8 weeks: None household members: significant other and children housing: house lives independently: Yes marital status: life partner education level: high school service: No intermediate: No current occupation: [employer] current occupational exposures/hazards: No caffeine: Yes physical activity: walking frequency: 5-6 times per week do you feel safe at home: Yes victim of physical abuse: No victim of emotional abuse: No victim of sexual abuse: No would you like helpful sources: No Meds Home Medications and Allergies Home Medications Medication Instructions Recorded Confirmed Type cholecalciferol (vitamin D3) 50 50 mcg PO DAILY Supplement 11/24/21 10/04/23 History mcg (2,000 unit) capsule fluticasone propionate 50 1 spr intranasal DAILY Allergy 01/03/22 10/04/23 History mcg/actuation nasal symptoms spray,suspension linaclotide 290 mcg capsule 290 mcg PO DAILY constipation 01/24/23 10/04/23 History (Linzess) sulfasalazine 500 mg 500 mg PO DAILY inflammation 05/05/23 10/04/23 History tablet,delayed release adalimumab 40 mg/0.8 mL 40 mg SQ DIRECTED inflammation 06/26/23 10/04/23 History subcutaneous pen kit (Humira Pen) levocetirizine 5 mg tablet 5 mg PO DAILY Allergy Symptoms 06/26/23 10/04/23 History lisinopril 10 mg tablet 10 mg PO DAILY High Blood Pressure 06/29/23 10/04/23 History mecobalamin (vitamin B12) 10,000 10,000 mcg SQ WEEKLY Supplement 07/05/23 10/04/23 History mcg solution for injection hydrochlorothiazide 25 mg
[2023-10-05 06:58] LABS: Alanine Aminotransferase 15 U/L (12-78); Albumin Level 3.5 g/dl (3.5-5.0); Albumin/Globulin Ratio 1.3 (1.1-1.8); Alkaline Phosphatase 66 U/L (38-126); Anion Gap 9.5 mEq/L (5-15); Aspartate Amino Transferase 21 U/L (14-36); Bilirubin,Total 0.4 mg/dl (0.2-1.3); Blood Urea Nitrogen 11 mg/dl (7-17); Calcium 7.8 mg/dl (8.4-10.2); Carbon Dioxide 23 mmol/L (22.0-30.0); Chloride 109 mmol/L (98-107); Creatinine Clearance Estimated 91 mL/min (50-200); Estimated Glomerular Filt Rate 92 ml/min (>60); GFR (African American) 112 ML/MIN (>60); Globulin 2.6 g/dL (1.3-3.2); Glucose 86 mg/dl (74-100); Magnesium 2.1 mg/dl (1.6-2.3); Potassium 3.5 mmoL/L (3.5-5.1); Sodium 138 mmol/L (136-145); Total Protein,Serum 6.1 g/dl (6.3-8.2)
[2023-10-05 07:02] LABS: MANUAL DIFFERENTIAL MANUAL DIFFERENTIAL (MANUAL DIFF)
[2023-10-05 07:30] LABS: Eosinophils % 2 % (0-3); Hypochromasia 1+; Lymphocytes % 50 % (10-50); Macrocytosis 1+; Monocytes % 18 % (2-9); Neutrophils % 27 % (42-76); Total Cells Counted 100
[2023-10-05 07:31] LABS: Platelet Estimate Normal; RBC Morphology Normal
[2023-10-05 07:41] VITALS: BP 104/62; PULSE 77; RESP 18; TEMP 36.7; O2SAT 99
--- NOTE | 2023-10-05 07:45 | HMH.PHAINT1 ---
Pharmacy Intervention Comments: Med reconiciliation completed using external fill history and patient interview. Ms Parr is very aware of the medications she is taking. She stated that she last received Humira 09/29. She stated that she started taking duloxetine 30 mg daily last week but did not have an exact day, and she should be increasing to 60 mg daily after 14 days. Additionally, she receives bupivacaine via pain pump at a rate of 2.3988 mg/day.
--- NOTE | 2023-10-05 11:57 | EXP.DC.SUM ---
General Admission date:: 10/04/23 Discharge date: 10/05/23 HPI HPI HPI: This is a 43-year-old female seen in consultation after presenting with complaint of hematemesis. She states that she is currently feeling better . No additional hematemesis since admission. She reports history of Chavez's esophagus and has been a patient of Dr. Garza in [place] for years . She states that she is overdue for repeat esophagogastroduodenoscopy by Dr. Garza. Forwarded from admission H&P/emergency department evaluation: This is a 43-year-old obese female with past medical history of ankylosing spondylitis, previous gastric sleeve, chronic back pain with indwelling intrathecal pain pump who presented to emergency department for evaluation after reported bloody vomit episodes at home. Also complaining of central chest pain. She does have a history of Chavez's esophagus and takes Protonix every day. Patient had her back pain pump medication switched yesterday, from morphine to bupivaaine, since then she has had referred symptoms and diffuse body spasms which she states happened last time that her medication was refilled . No other acute complaints at this time. Admitted for treatment. Hospital Course Hospital Course Hospital Course: 43-year-old obese female with past medical history of ankylosing spondylitis, previous gastric sleeve, chronic back pain with indwelling intrathecal pain pump who presented to emergency department for evaluation after reported bloody vomit episodes at home. Also complaining of central chest pain. She does have a history of Chavez's esophagus and takes Protonix every day. on arrival chest CTA was obatained to rule out PE and acute cardiac and pulmonary disease. EKG and CXR also normal. Reviewed. labs are also grossly unremarkable. Agreed for admission after discussion with ER provider and due to the previous hx of nestor's esophagus. Case was consulted with general surgeon for possible endoscopy and further work up. Plan as follow: -Hematemesis, with Hx of Nestor's esophagus: - resolved, f/u with GI Dr. Garza - Chest pain: - resolved Chronic conditions reviewed resumed home medications Hx of gastric bypass: condition to monitor. to rule out gastric ulcer pending for endoscopy to eval Exam Data for Last 24 hours Vital signs and Labs for Last 24 Hours: Temp Pulse Resp BP Pulse Ox O2 Del Method 98.1 F 77 18 104/62 L 99 Room Air 10/05/23 07:41 10/05/23 07:41 10/05/23 07:41 10/05/23 07:41 10/05/23 07:41 10/05/23 11:00 Laboratory Results - last 24 hr 10/04/23 20:45: WBC 4.1 L, RBC 4.23, Hgb 13.5, Hct 39.3, MCV 93.0, MCH 31.8 H, MCHC 34.2, RDW 13.4, Plt Count 266, MPV 8.9, Neut % (Auto) 37.9, Lymph % (Auto) 48.8, [place] % (Auto) 11.4 H, Eos % (Auto) 1.2, Baso % (Auto) 0.6, Neut # (Auto) 1.5 L, Lymph # (Auto) 2.0, [place] # (Auto) 0.5, Eos # (Auto) 0.1, Baso # (Auto) 0.0, Sodium 141, Potassium 3.8, Chloride 109 H, Carbon Dioxide 25, Anion Gap 10.8, BUN 13, Creatinine 0.80, Estimated Creat Clear 159, Estimated GFR 79, Est GFR ( Amer) 96, Glucose 96, Calcium 8.3 L, Total Bilirubin 0.4, AST 23, ALT 19, Alkaline Phosphatase 77, Troponin I < 0.01, Total Protein 7.0, Albumin 4.2, Globulin 2.8, Albumin/Globulin Ratio 1.5, Lipase 87 10/04/23 23:40: Troponin I < 0.01 10/05/23 02:50: Troponin I < 0.01 10/05/23 06:26: WBC 3.3 L, RBC 4.01 L, Hgb 12.6, Hct 37.3, MCV 93.2, MCH 31.3 H, MCHC 33.6, RDW 13.3, Plt Count 232, MPV 9.1, Neut % (Auto) 31.9 L, Lymph % (Auto) 54.6 H, [place] % (Auto) 11.9 H, Eos % (Auto) 1.0, Baso % (Auto) 0.5, Neut # (Auto) 1.0 L, Lymph # (Auto) 1.8, [place] # (Auto) 0.4, Eos # (Auto) 0.0, Baso # (Auto) 0.0, Total Counted 100, Neutrophils % (Manual) 27 L, Band Neutrophils % 3.0, Lymphocytes % (Manual) 50, Monocytes % (Manual) 18 H, Eosinophils % (Manual) 2, Platelet Estimate Normal, RBC Morphology Normal, Hypochromasia 1+, Macrocytosis 1+, Sodium 138, Potassium 3.5, Chloride 109 H, Carbon Dioxide 23, Ani
--- NOTE | 2023-10-09 11:46 | CARE MANAGER ---
Called and spoke with patient regarding recent discharge. She stated that she is doing ok, is scheduled for a scope on 10/11. She voiced no concerns at time of call, and was aware of scheduled f/u appts.
== END 2023-10-05 13:49 | disposition home or self-care (01) ==
LOC: ER 21:09 → 2ND 22:36
PROVIDERS: Nurse Practitioner Family; Admitting Provider Internal Medicine; Emergency Provider Emergency Medicine; PCP Physician Assistant; Visit Provider Internal Medicine
DX: K92.0 Hematemesis (principal); Z79.899 Other long term (current) drug therapy; K22.70 Barrett's esophagus without dysplasia; R07.89 Other chest pain; Z98.84 Bariatric surgery status; Z68.41 Body mass index [BMI] 40.0-44.9, adult; E66.01 Morbid (severe) obesity due to excess calories; I10 Essential (primary) hypertension; Z97.8 Presence of other specified devices
CPT/HCPCS: 36415; 71045; 71275; 80053; 83690; 83735; 84484; 85007; 85025; 93005; 99285; G0378; J0131; Q9967

== ENCOUNTER → 2023-10-19 15:57 | Outpatient (CLI) | payer OTHER, SELFPAY ==
[2023-10-19 16:02] LABS: MANUAL DIFFERENTIAL MANUAL DIFFERENTIAL (MANUAL DIFF)
[2023-10-19 16:29] LABS: INR 1.02 (0.9-1.1)
[2023-10-19 16:47] LABS: Alanine Aminotransferase 21 U/L (12-78); Albumin Level 5.3 g/dl (3.5-5.0); Albumin/Globulin Ratio 1.6 (1.1-1.8); Alkaline Phosphatase 94 U/L (38-126); Anion Gap 13.7 mEq/L (5-15); Aspartate Amino Transferase 26 U/L (14-36); Bilirubin,Total 0.9 mg/dl (0.2-1.3); Blood Urea Nitrogen 14 mg/dl (7-17); Calcium 9.9 mg/dl (8.4-10.2); Carbon Dioxide 24 mmol/L (22.0-30.0); Chloride 106 mmol/L (98-107); Estimated Glomerular Filt Rate 55 ml/min (>60); GFR (African American) 66 ML/MIN (>60); Globulin 3.3 g/dL (1.3-3.2); Glucose 111 mg/dl (74-100); Potassium 3.7 mmoL/L (3.5-5.1); Sodium 140 mmol/L (136-145); Total Protein,Serum 8.6 g/dl (6.3-8.2)
[2023-10-19 17:04] LABS: Basophils # 0.1 K/mm3 (0-0.2); Basophils % 0.9 % (0.1-2.0); Eosinophils # 0.1 K/mm3 (0.0-0.4); Eosinophils % 0.9 % (0.1-12.0); Hematocrit 44.3 % (37.0-47.0); Hemoglobin 15.1 g/dL (12.2-16.2); Lymphocytes # 2.7 K/mm3 (0.7-4.5); Lymphocytes % 25.9 % (10-50); Mean Corpuscular HGB Conc 34.1 g/dL (31.8-35.4); Mean Corpuscular Volume 91.1 fl (81-99); Mean Platelet Volume 9.2 fl (7.4-10.4); Monocytes # 0.7 K/mm3 (0.1-1.0); Monocytes % 6.3 % (1.7-9.3); Neutrophils # 6.8 K/mm3 (1.8-7.8); Platelet Count 380 K/mm3 (142-424); Red Blood Count 4.86 M/mm3 (4.20-5.40); White Blood Count 10.4 K/mm3 (4.8-10.8)
[2023-10-19 18:10] LABS: Eosinophils % 1 % (0-3); Lymphocytes % 33 % (10-50); Monocytes % 5 % (2-9); Neutrophils % 61 % (42-76); Platelet Estimate Normal; RBC Morphology Normal; Total Cells Counted 100
[2023-10-21 05:09] LABS: HIV Screen 4th Generation wRfx Non Reactive (Non Reactive)
[2023-10-21 14:14] LABS: Hep A Ab, Total Positive (Negative); Hep B Core Ab, Total Negative (Negative); Hep B Surface Ab, Qual Non Reactive (.)
[2023-10-21 16:03] LABS: Peripheral Smear Review Scanned Result
[2023-10-24 23:17] LABS: Alpha 2-Macroglobulins, Qn 281; Fibrosis Score 0.06; Fibrosis Stage F0; Necroinflammat Activity Grade A0; Necroinflammat Activity Score 0.04
[2023-10-24 23:18] LABS: ALT (SGPT) P5P 15; Apolipoprotein A-1 211; Bilirubin, Total 0.5; GGT 9; Haptoglobin 218
[2023-10-24 23:19] LABS: Hepatitis B Surface Antigen Negative; Hepatitis C Antibody Non Reactive
== END ==
PROVIDERS: PCP Physician Assistant; Visit Provider Physician Assistant
DX: K92.0 Hematemesis (principal); E53.8 Deficiency of other specified B group vitamins
CPT/HCPCS: 36415; 80053; 81596; 85007; 85014; 85018; 85048; 85049; 85610; 86703; 86704; 86706; 86708; 87340; 87380; 87522; 87902; G0432

== ENCOUNTER 2023-11-14 08:19 | Day surgery (SDC) | payer OTHER, SELFPAY ==
[2023-11-14 08:30] VITALS: BP 135/99; PULSE 132; RESP 18; O2SAT 97; BMI 39.9
[2023-11-14 09:00] VITALS: BP 125/91; PULSE 102; RESP 16; O2SAT 95
[2023-11-14 09:11] VITALS: BP 157/97; PULSE 123; RESP 20; O2SAT 99
[2023-11-14 09:15] VITALS: BP 157/97; PULSE 123; RESP 20; O2SAT 99
--- NOTE | 2023-11-14 09:25 | EXP.PAIN.PRO ---
Procedure Date: 11/14/23 Time: 08:45 Anesthesiologist:: Denis Hare CRNA Complications:: None Pre-procedure Diagnosis:: Degenerative disc lumbar spine levels. Lumbar radiculopathy. Lumbar postlaminectomy syndrome. Post-procedure Diagnosis:: Same. Indications for Procedure:: Patient is a very pleasant 43-year-old female comes our clinic today for intrathecal pain pump interrogation and refill. She is currently being managed with bupivacaine 10 mg/mL at a rate of 2.399 mg/day. Patient complaining of thoracic back pain. Lumbar back pain with radicular symptoms at times. Requesting increase in intrathecal pain pump rate today. I think this is reasonable. Will increase her by 10%. Also, we will change concentration of bupivacaine from 10 mg/mL to 15 mg/mL. Procedure Details:: Details of the procedure explained to the patient. The patient taken procedure room placed in sitting position. The area over the pump was cleansed using chlorhexidine's cleansing solution. The pump was interrogated. The pump was accessed with ease using a 22-gauge inch and half needle. 9 mL of solution was withdrawn discarded appropriately. The pump was then filled with bupivacaine 15 mg/mL. The rate will be increased to 2.640 mg/day. Patient tolerated procedure without difficulty. There are no complications. Plan and Disposition:: Patient was discharged without incident.
== END 2023-11-14 09:00 | disposition home or self-care (01) ==
LOC: SC.PAINP 08:19
PROVIDERS: PCP Physician Assistant; Visit Provider Nurse Anesthetist, Certified Registered
DX: M51.16 Intervertebral disc disorders with radiculopathy, lumbar region (principal); M96.1 Postlaminectomy syndrome, not elsewhere classified; Z97.8 Presence of other specified devices; Z45.1 Encounter for adjustment and management of infusion pump
CPT/HCPCS: 95991

== ENCOUNTER 2023-11-21 14:49 | Outpatient (CLI) | payer OTHER, SELFPAY ==
--- NOTE | 2023-11-21 14:49 | MM_ITS ---
PROCEDURE INFORMATION: Exam: MG Bilateral Screening 3D Mammography Exam date and time: 11/21/2023 3:02 PM Age: 43 years old Clinical indication: Screening. No family history of breast cancer. TECHNIQUE: Imaging protocol: Bilateral Screening tomosynthesis and 2D mammography including computer-aided detection (CAD) when performed. COMPARISON: MG MM DIG SCREENING MAMM BI W/CAD 09/21/2022 3:22 PM FINDINGS: MAMMOGRAPHY: Breast composition: The breasts are almost entirely fatty. Mass: No suspicious mass. Architectural distortion: None. Calcifications: No suspicious calcifications. Asymmetric density: None. Skin thickening: None. Axillary adenopathy: None. IMPRESSION: No mammographic evidence of malignancy. Annual screening is recommended unless otherwise clinically indicated. ASSESSMENT: BI-RADS Category 1: Negative
== END 2023-11-21 23:59 ==
LOC: RAD 14:49
PROVIDERS: PCP Physician Assistant; Visit Provider Physician Assistant
DX: Z12.31 Encounter for screening mammogram for malignant neoplasm of breast (principal)
CPT/HCPCS: 77063; 77067

== ENCOUNTER 2023-12-01 06:22 | Day surgery (SDC) | payer OTHER, SELFPAY ==
[2023-11-30 09:54] VITALS: BMI 39.9
[2023-12-01 06:44] VITALS: BP 160/68; PULSE 90; RESP 18; TEMP 36.3; O2SAT 99
[2023-12-01 07:43] VITALS: BP 126/63; PULSE 74; RESP 18; TEMP 36.3; O2SAT 99
--- NOTE | 2023-12-01 07:43 | EXP.OP.NOTE ---
Date of procedure: 12/01/23 Pre-op Diagnosis:: Left lower extremity/anterior thigh skin neoplasm (2 cm) Post-op Diagnosis:: Same Procedure performed:: Excision of 2 cm left lower extremity/anterior thigh skin lesion Surgeon:: Lorenzo Frankel MD Anesthesia: local Estimated blood loss (mL): 5 Operative findings:: Lesion excised in toto Operative note:: After informed consent was obtained the patient was taken to the procedure room. Her left anterior thigh region was prepped and draped in a sterile fashion. After infiltration with local anesthetic an elliptical incision was made around the lesion. The lesion was sharply excised (to the level of the deeper subcutaneous tissue) in toto and passed off for pathologic evaluation. Thermal cautery was utilized to achieve hemostasis. Skin was reapproximated with interrupted 4-0 nylon. Dressings were applied and the patient was discharged home in stable condition. Condition: stable Disposition: no change Specimens:: Left lower extremity/anterior thigh skin neoplasm Complications:: No immediate
[2023-12-01 07:47] VITALS: BP 126/63; PULSE 74; RESP 18; O2SAT 99
== END 2023-12-01 07:49 | disposition home or self-care (01) ==
PROVIDERS: PCP Physician Assistant; Visit Provider Surgery
PROC: (CPT 11402; principal; 2023-12-01 07:30)
DX: D22.72 Melanocytic nevi of left lower limb, including hip (principal)
CPT/HCPCS: 11402

== ENCOUNTER 2023-12-06 13:31 | Emergency (ER) | payer OTHER, SELFPAY ==
[2023-12-06 13:32] VITALS: BP 148/89; PULSE 119; RESP 16; TEMP 36.4; O2SAT 98; BMI 39.9
--- NOTE | 2023-12-06 13:53 | ED_ITS ---
Discharge Plan Disposition Patient Disposition: Home, Self-Care Condition: Good Prescriptions Prescriptions: No Action cholecalciferol (vitamin D3) 50 mcg (2,000 unit) capsule 25 mcg PO DAILY Linzess 290 mcg capsule 290 mcg PO DAILY sulfasalazine 500 mg tablet,delayed release (DR/EC) 1,000 mg PO BID mecobalamin (vitamin B12) 10,000 mcg recon soln 10,000 mcg SQ MONTHLY Humira Pen 40 mg/0.8 mL pen injector kit 40 mg SQ QOW levocetirizine 5 mg tablet 5 mg PO DAILY duloxetine [Cymbalta] 30 mg capsule,delayed release(DR/EC) 30 mg PO DAILY Qty: 14 0RF Rx Instructions: 30 mg daily X 14 days, then 60 mg daily lisinopril 10 mg tablet See Rx Instructions .ROUTE .COMPLEX Qty: 90 1RF Hold Instructions: Resume on 07/15/23. Dose Instruction: TAKE 1 TABLET BY MOUTH ONCE DAILY Rx Instructions: TAKE 1 TABLET BY MOUTH ONCE DAILY mirtazapine [Remeron] 15 mg tablet 15 mg PO HS Qty: 30 2RF hydrochlorothiazide 25 mg tablet 25 mg PO DAILY Hold Instructions: Resume on 07/15/23. tizanidine 4 mg tablet 4 mg PO TID Qty: 90 2RF ipratropium bromide 21 mcg (0.03 %) spray,non-aerosol 1 spray INTRANASAL HS Horizant 600 mg tablet extended release 600 mg PO DAILY bupivacaine HCl 0.5 % (5 mg/mL) Solution 2.3988 mg intradermal DAILY pantoprazole [Protonix] 40 mg tablet,delayed release (DR/EC) 40 mg PO BID Qty: 60 0RF Referrals Follow up/Referrals: Sarita Gómez PA [Primary Care Provider] - See instructions Activity Restrictions/Add. Instructions Additional Instructions/Restrictions: You were evaluated in the emergency department today. Please take your blood pressure twice a day and present your primary care provider with a log of blood pressures. Continue taking your blood pressure medications at home. Return to the emergency department for new or worsening symptoms. Follow-up with your primary care provider over the next 3 days for reassessment. Clinical Impressions Clinical Impression: Hypertension Instructions Patient Instructions: DI for High Blood Pressure Discharge ED Provider: Yolie Leos General Adult HPI General Chief complaint: Recheck/Abnormal Lab/Rx Stated complaint: high BP, Time Seen by Provider: 12/06/23 13:32 Mode of Arrival: Wheelchair Source of Information: Patient Limitations: No Limitations Description of Symptoms (Recalled from ER Triage Doc. by RN): Patient seen in Dr. Frankel's office related to having sutures removed. Upon taking the patient's vitals her blood pressure was elevated so they reccomended she come to the ER for evaluation. Patient states she knew her BP was elevated because her face and ears are hot. States she did take both of her blood pressure medications at 10am. History of Present Illness HPI narrative: This patient is a 43-year-old female with a history of obesity and hypertension presenting to the emergency department for evaluation with concern for high blood pressure at surgery clinic. She went to surgery clinic today to have a sutures removed from removal of a complex nevus. She was noted to have severely high blood pressure with systolics greater than 200s. Given this, she was sent in for evaluation. She notes that she took her blood pressure medicine around 10:00 this morning. She takes lisinopril/HCTZ. She previously was only on HCTZ, but the lisinopril was added approximately 1 month ago. She denies any symptoms or concerns, but she states that she could feel that her blood pressure was up because her face felt warm and flushed. No other concerns noted at this time. Related Data Home Medications Medication Instructions Recorded Confirmed cholecalciferol (vitamin D3) 50 25 mcg PO DAILY Supplement 11/24/21 12/06/23 mcg (2,000 unit) capsule linaclotide 290 mcg capsule 290 mcg PO DAILY constipation 01/24/23 12/06/23 (Linzess) sulfasalazine 500 mg 1,000 mg PO BID inflammation 05/05/23 12/06/23 tablet,delayed release adalimumab 40 mg/0.8 mL 40 mg SQ QOW inflammation 06/26/23 12/06/23 subcutaneous pen kit (Humira Pen) levocetirizine 5 mg tablet 5 mg PO DAILY Allergy Symptoms 06/26/23 12/06/23 mecobalamin (vitamin B12) 10,000 10,000 mcg SQ MONTHLY Supplement 07/05/23 12/06/23 mcg solution for injection hydrochlorothiazide 25 mg tablet 25 mg PO DAILY Fluid 07/06/23 12/06/23 bupivacaine HCl 0.5 % (5 mg/mL) 2.3988 mg intradermal DAILY 10/05/23 12/06/23 injection solution gabapentin enacarbil 600 mg 600 mg PO DAILY 10/05/23 12/06/23 tablet,extended release (Horizant ER) ipratropium bromide 21 mcg (0.03 1 spray intranasal HS 10/05/23 12/06/23 %) nasal spray Previous Rx's Medication Instructions Recorded duloxetine 30 mg capsule,delayed 30 mg PO DAILY #14 caps 09/21/23 release (Cymbalta) tizanidine 4 mg tablet 4 mg PO TID muscle spasms #90 tabs 10/04/23 pantoprazole 40 mg tablet,delayed 40 mg PO BID #60 tabs 10/05/23 release (Protonix) lisinopril 10 mg tablet See Rx Instructions .Route 10/27/23 .COMPLEX #90 tabs mirtazapine 15 mg tablet (Remeron) 15 mg PO HS #30 tabs 11/08/23 Allergies Allergy/AdvReac Type Severity Reaction Status Date / Time cefaclor [CEFACLOR] Allergy Unknown Verified 12/06/23 13:09 Penicillins [PENICILLINS] Allergy Unknown Verified 12/06/23 13:09 Cephalosporins Allergy Verified 12/06/23 13:09 trazodone AdvReac Severe Hallucinati Verified 12/06/23 13:09 ng amlodipine AdvReac Mild edema Verified 12/06/23 13:09 PFSH [facility] Disclaimer: The information contained in this section may have been updated after the patient was seen, as this information can be updated by other users. Medical History Ankylosing spondylitis Anxiety Atypical chest pain B12 deficiency Back pain Barretts esophagus Bladder spasms Fibromyalgia Fracture of greater tuberosity of humerus Hematemesis Hip pain Hypertension Insomnia Iron deficiency anemia Iron metabolism disorder Knee pain Mastalgia Mood disturbance Morbid obesity Neuropathic pain Osteoarthritis of left knee Restless leg syndrome Surgical History History of appendectomy History of bilateral knee replacement History of cholecystectomy History of esophagogastroduodenoscopy (EGD) History of hysterectomy including cervix History of tonsillectomy Hx of gastric bypass Hx of tubal ligation Status post gastric bypass for obesity Family History Other Cancer Coronary artery disease Diabetes Hypertension Social History Smoking Status: Never smoker second hand exposure: No alcohol intake: never substance use type: denies use current occupational status: unemployed Travel in the last 8 weeks: None household members: significant other and children housing: house lives independently: Yes marital status: life partner education level: high school service: No intermediate: No current occupation: [employer] current occupational exposures/hazards: No caffeine: Yes physical activity: walking frequency: 5-6 times per week do you feel safe at home: Yes victim of physical abuse: No victim of emotional abuse: No victim of sexual abuse: No would you like helpful sources: No ROS Obtained: Yes All systems reviewed & no additional complaints except as documented Physical Exam General General appearance: alert and in no apparent distress Head Head exam: atraumatic and normocephalic Eye Eye exam: Present normal appearance, PERRL and EOMI ENT ENT exam: Present normal exam, normal oropharynx, mucous membranes moist and normal external ear exam Neck Neck exam: Present normal inspection, full ROM and trachea midline; Absent tenderness Chest Chest inspection: Present normal inspection and symmetric chest wall rise; Absent tenderness Respiratory Respiratory exam: Present normal lung sounds bilaterally; Absent respiratory distress, wheezes, stridor or accessory muscle use Cardiovascular Cardiovascular exam: Present normal rhythm and tachycardia Abdominal Exam Abdominal exam: Present soft; Absent distention, tenderness or guarding Extremities Exam Extremities exam: Present normal inspection, full ROM and normal capillary ref ill; Absent tenderness or edema Back Exam Back exam: Present normal inspection and full ROM; Absent tenderness Neurological Exam Neurological exam: Present alert, oriented X3, CN II-XII intact and normal gait; Absent motor sensory deficit Psychiatric Psychiatric exam: Present normal affect and normal mood Skin Skin exam: Present warm and dry Medical Decision Making Medical Records Medical records reviewed: Yes I reviewed the patient's medical records. Amari Inquiry Pt receiving controlled substance: No Vital Signs: 12/06/23 13:32 12/06/23 14:19 12/06/23 14:40 Temperature 97.6 F Temperature Source Oral Pulse Rate 89 79 Pulse Rate [Radial] 119 H Respiratory Rate 16 20 Blood Pressure 152/93 H 132/90 Blood Pressure [Right Arm] 148/89 H Blood Pressure Mean 112 112 Blood Pressure Mean [Right Arm] 108 Blood Pressure Source [Right Arm] Automatic Cuff Blood Pressure Position [Right Arm] Sitting 02 Sat by Pulse Oximetry 98 99 99 Oxygen Delivery Method Room Air Lab Data Lab results reviewed: Yes I reviewed the patient's lab results. Lab Results 12/06/23 13:50: Sodium 139, Potassium 4.0, Chloride 105, Carbon Dioxide 27, Anion Gap 11.0, BUN 11, Creatinine 0.70, Estimated Creat Clear 182, Estimated GFR 92, Est GFR ( Amer) 112, Glucose 97, Calcium 9.6, Total Bilirubin 0.7, AST 30, ALT 26, Alkaline Phosphatase 76, Total Protein 7.0, Albumin 4.4, Globulin 2.6, Albumin/Globulin Ratio 1.7 12/06/23 13:50 Orders (Tests/Meds): ORDERS Category Date Time Status Comprehensive Metabolic Panel Stat Lab 12/06/23 13:50 Completed ECG Data Tracing #1: Sinus rhythm with a ventricular rate of [address] changes concerning for ischemia. No significant changes noted from prior EKG. ECG initial impression date: 12/06/23 ECG initial impression time: 13:57 Medical Decision Narrative: In summary, this patient is a 43-year-old female presenting to the Emergency Department for evaluation of high blood pressure in outpatient clinic. Differential diagnoses considered include but are not limited to hypertensive urgency, hypertensive emergency, asymptomatic hypertension, renal artery stenosis. Ruling out the most morbid conditions drove assessment. On exam, the patient is well-appearing with no concerns or symptoms at this time aside from feeling that her face was hot and flushed earlier with her blood pressure being elevated. Blood pressures 140s over 80s here. she is mildly tachycardic. Workup included CMP and EKG. I reviewed her medical records and noted that she only takes 10 mg of lisinopril as well as 25 mg of HCTZ. She may benefit from potential increase in her medications, which her primary care provider has been working on as an outpatient. Patient's blood pressure continues to improve while in the emergency department, and her blood pressure prior to discharge was 130s systolic. She is asymptomatic with reassuring EKG. CMP is reassuring without evidence of endorgan dysfunction. Given this, feel that she is appropriate for discharge with close follow-up with her primary care provider. I instructed her to continue taking her medications at home and keep a log of her blood pressures. I gave her strict return precautions she was discharged in stable condition after all questions were answered. Critical Care Critical Care Time Critical Care Time: No
--- NOTE | 2023-12-06 13:56 | ECG_ITS ---
APPROVED REPORT Exam: Resting ECG HR:97 bpm ECG Measurements Heart Rate 97 AXES NV 131 P 56 QRSd 82 QRS 65 QT 330 T 21 QTc 385 Conclusion SINUS RHYTHM NONSPECIFIC T-WAVE ABNORMALITY BORDERLINE ECG UNCONFIRMED REPORT Electronically signed by : Michael Campo MD 12/06/2023 22:38:18
[2023-12-06 14:19] VITALS: BP 152/93; PULSE 89; O2SAT 99
[2023-12-06 14:22] LABS: Chloride 105 mmol/L (98-107); Sodium 139 mmol/L (136-145)
[2023-12-06 14:24] LABS: Alanine Aminotransferase 26 U/L (12-78); Alkaline Phosphatase 76 U/L (38-126); Aspartate Amino Transferase 30 U/L (14-36); Bilirubin,Total 0.7 mg/dl (0.2-1.3); Blood Urea Nitrogen 11 mg/dl (7-17); Carbon Dioxide 27 mmol/L (22.0-30.0); Creatinine Clearance Estimated 182 mL/min (50-200); Estimated Glomerular Filt Rate 92 ml/min (>60); GFR (African American) 112 ML/MIN (>60)
[2023-12-06 14:25] LABS: Albumin Level 4.4 g/dl (3.5-5.0); Albumin/Globulin Ratio 1.7 (1.1-1.8); Calcium 9.6 mg/dl (8.4-10.2); Globulin 2.6 g/dL (1.3-3.2); Glucose 97 mg/dl (74-100)
[2023-12-06 14:40] VITALS: BP 132/90; PULSE 79; RESP 20; O2SAT 99
[2023-12-06 15:03] VITALS: BP 135/83; PULSE 78; RESP 18; TEMP 36.6; O2SAT 99
== END 2023-12-06 15:05 | disposition home or self-care (01) ==
PROVIDERS: Emergency Provider Emergency Medicine; PCP Physician Assistant
DX: I10 Essential (primary) hypertension (principal); M45.9 Ankylosing spondylitis of unspecified sites in spine
CPT/HCPCS: 80053; 93005; 99283

== ENCOUNTER 2023-12-27 09:36 | Outpatient (CLI) | payer OTHER, SELFPAY ==
[2023-12-27 10:44] LABS: Iron 98 ug/dL (37-170)
[2023-12-27 10:53] LABS: Total Iron Binding Capacity 281 ug/dL (265-497)
[2023-12-27 11:19] LABS: Ferritin 60.4 ng/ml (6.24-137)
== END 2023-12-27 23:59 ==
LOC: LAB 09:37
PROVIDERS: PCP Physician Assistant; Visit Provider Nurse Practitioner Family
DX: G25.81 Restless legs syndrome (principal); E83.10 Disorder of iron metabolism, unspecified
CPT/HCPCS: 36415; 82728; 83540; 83550

== ENCOUNTER 2023-12-28 08:34 | Day surgery (SDC) | payer OTHER, SELFPAY ==
[2023-12-26 16:55] VITALS: BMI 39.9
[2023-12-28 08:47] VITALS: BP 127/80; PULSE 90; RESP 18; TEMP 36.1; O2SAT 100
--- NOTE | 2023-12-28 09:00 | EXP.OP.NOTE ---
Date of procedure: 12/28/23 Pre-op Diagnosis:: Left groin/thigh atypical nevus status post excision with involved margin Post-op Diagnosis:: Same Procedure performed:: Reexcision left groin/thigh atypical nevus (2 cm) Surgeon:: Lorenzo Frankel MD Anesthesia: local Estimated blood loss (mL): 10 Operative findings:: Reexcision of original scar with surrounding margin Operative note:: After informed consent was obtained the patient was taken to the procedure room. Her left anterior thigh/groin region was prepped and draped in a sterile fashion. After infiltration with local anesthetic an elliptical incision was made around the prior scar. The lesion/scar was sharply excised (to the level of the deeper subcutaneous tissue) in toto and passed off for pathologic evaluation. Skin was reapproximated with interrupted 4-0 nylon. Dressings were applied and the patient was discharged home in stable condition. Condition: stable Disposition: no change Specimens:: Left anterior thigh/groin atypical nevus (reexcision) Complications:: No immediate
[2023-12-28 09:35] VITALS: BP 139/93; PULSE 80; RESP 16; TEMP 36.3; O2SAT 100
== END 2023-12-28 09:50 | disposition home or self-care (01) ==
PROVIDERS: PCP Physician Assistant; Visit Provider Surgery
PROC: (CPT 11402; principal; 2023-12-28 10:15)
DX: D22.72 Melanocytic nevi of left lower limb, including hip (principal); D22.5 Melanocytic nevi of trunk
CPT/HCPCS: 11402

== ENCOUNTER 2024-01-16 08:35 | Day surgery (SDC) | payer OTHER, SELFPAY ==
[2024-01-16 08:43] VITALS: BP 166/98; PULSE 107; RESP 18; TEMP 36.6; O2SAT 100; BMI 41.5
[2024-01-16 08:53] VITALS: BP 186/105; PULSE 108; RESP 18; O2SAT 96
[2024-01-16 08:55] VITALS: BP 186/105; PULSE 108; RESP 19; O2SAT 96
--- NOTE | 2024-01-16 08:59 | EXP.PAIN.PRO ---
Procedure Date: 01/16/24 Time: 08:35 Anesthesiologist:: Denis Hare CRNA Complications:: None Pre-procedure Diagnosis:: Degenerative disc lumbar spine multilevels. Lumbar radiculopathy. Lumbar postlaminectomy syndrome. Post-procedure Diagnosis:: Same. Indications for Procedure:: Patient is a very pleasant 43-year-old female comes our clinic today for intrathecal pain pump interrogation refill. She is currently being managed with bupivacaine 15 mg/mL at a rate of 2.640 mg/day. She is doing very well with her current settings. She is not reporting side effects or complications. She is not requesting a changes. Procedure Details:: Details of the procedure explained to the patient. The patient taken the procedure room placed in the sitting position. The area of the pump is cleansed using chlorhexidine's cleansing solution. The pump was interrogated. The pump was accessed with ease using 22-gauge inch and half needle. 8.1 mL of solution was withdrawn discarded appropriate. The pump was then filled with 20 cc of a solution containing bupivacaine 15 mg/mL. The pump rate will remain the same at 2.640 mg/day. Pump fill was confirmed using fluoroscopy. Plan and Disposition:: Patient tolerated procedure without difficulty. There are no complications. She was discharged without incident.
[2024-01-16 09:09] VITALS: BP 157/91; PULSE 96; RESP 20
== END 2024-01-16 09:10 | disposition home or self-care (01) ==
PROVIDERS: PCP Physician Assistant; Visit Provider Nurse Anesthetist, Certified Registered
DX: M51.16 Intervertebral disc disorders with radiculopathy, lumbar region (principal); M96.1 Postlaminectomy syndrome, not elsewhere classified; Z97.8 Presence of other specified devices; Z45.1 Encounter for adjustment and management of infusion pump
CPT/HCPCS: 95991

== ENCOUNTER 2024-01-30 07:55 | Outpatient (CLI) | payer OTHER, SELFPAY ==
--- NOTE | 2024-01-30 07:56 | CA_ITS ---
FINAL REPORT CLINICAL HISTORY: HTN COMPARISON: None FINDINGS: Aorta velocity: 107 cm/sec Right kidney: 11.4 cm. Right intrarenal RI: 0.59 Right renal artery velocity: 184 cm/sec. Right RAR (Renal artery-Aortic Ratio): 1.7 Left Kidney: 10.5 cm. No evidence of hydronephrosis or mass. Left intrarenal RI: 0.6 to Left renal artery velocity: 132 cm/sec. Left RAR (Renal Artery-Aortic Ratio): 1.65 IMPRESSION: Less than 60% luminal diameter stenosis in either renal artery. CT angiogram or postcontrast MR angiogram would be more sensitive for evaluation of possible renal artery stenosis. Reviewed, Interpreted and Dictated by José Luis Muñiz MD Transcribed by Ruby Li Authenticated and . [facility]
== END 2024-01-30 23:59 ==
LOC: RT 07:56
PROVIDERS: PCP Physician Assistant; Visit Provider Nurse Practitioner Family
DX: I10 Essential (primary) hypertension (principal)
CPT/HCPCS: 93976

== ENCOUNTER 2024-02-21 15:52 | Outpatient (CLI) | payer OTHER, SELFPAY ==
[2024-02-21 16:27] LABS: Basophils # 0.1 K/mm3 (0-0.2); Basophils % 0.8 % (0.1-2.0); Eosinophils # 0.3 K/mm3 (0.0-0.4); Eosinophils % 2.6 % (0.1-12.0); Hematocrit 43.5 % (37.0-47.0); Hemoglobin 14.2 g/dL (12.2-16.2); Lymphocytes % 29.1 % (10-50); Mean Corpuscular HGB Conc 32.7 g/dL (31.8-35.4); Mean Corpuscular Hemoglobin 30.2 pg (27.0-31.2); Mean Corpuscular Volume 92.4 fl (81-99); Mean Platelet Volume 9.8 fl (7.4-10.4); Monocytes # 0.5 K/mm3 (0.1-1.0); Monocytes % 5.3 % (1.7-9.3); Neutrophils # 6.4 K/mm3 (1.8-7.8); Neutrophils % 62.1 % (37.0-80.0); Platelet Count 303 K/mm3 (142-424); Red Cell Distribution Width 13.1 % (11.5-17.5); White Blood Count 10.2 K/mm3 (4.8-10.8)
[2024-02-21 16:52] LABS: Alanine Aminotransferase 15 U/L (12-78); Albumin Level 4.5 g/dl (3.5-5.0); Alkaline Phosphatase 78 U/L (38-126); Aspartate Amino Transferase 20 U/L (14-36); Bilirubin,Direct 0.1 mg/dl (0.0-0.4); Bilirubin,Indirect 0.6 mg/dL (0.0-0.9); Bilirubin,Total 0.7 mg/dl (0.2-1.3); Bilirubin,Unconjugated 0.5 mg/dL (0.0-1.1); Blood Urea Nitrogen 15 mg/dl (7-17); Calcium 9.4 mg/dl (8.4-10.2); Carbon Dioxide 26 mmol/L (22.0-30.0); Chloride 106 mmol/L (98-107); Chol/HDL Ratio 3.1 (1-3.5); Cholesterol 190 mg/dl (140-200); Estimated Glomerular Filt Rate 79 ml/min (>60); GFR (African American) 96 ML/MIN (>60); Glucose 84 mg/dl (74-100); HDL Cholesterol 62 mg/dl (40-60); Sodium 140 mmol/L (136-145); Total Protein,Serum 6.9 g/dl (6.3-8.2); Triglycerides 114 mg/dl (30-150); VLDL Cholesterol 23 mg/dL (0-40)
[2024-02-21 17:03] LABS: Direct LDL Cholesterol 79.87 mg/dL (100-129)
[2024-02-21 17:11] LABS: Free T4 (Free Thyroxine) 0.98 ng/dl (0.78-2.19)
[2024-02-21 17:22] LABS: Thyroid Stimulating Hormone 1.74 uIU/mL (0.465-4.68)
[2024-02-29 08:06] LABS: Metanephrine Plasma < 25.0 pg/mL (0.0-88.0); Normetanephrine Plasma 54.8 pg/mL (0.0-218.9)
== END 2024-02-21 23:59 | disposition home or self-care (01) ==
LOC: LAB 15:52
PROVIDERS: PCP Physician Assistant; Visit Provider Nurse Practitioner Family
DX: I15.0 Renovascular hypertension (principal); R07.9 Chest pain, unspecified
CPT/HCPCS: 36415; 80048; 80061; 80076; 82088; 82384; 83735; 83835; 84244; 84439; 84443; 85025

== ENCOUNTER 2024-02-28 14:49 | Outpatient (CLI) | payer OTHER, SELFPAY ==
[2024-03-04 15:09] LABS: Dopamine, Plasma < 30 pg/mL (0-48); Epinephrine, Plasma 31 pg/mL (0-62); Norepinephrine, Plasma 573 pg/mL (0-874)
[2024-03-06 11:13] LABS: Metanephrine Plasma 30.9 pg/mL (0.0-88.0); Normetanephrine Plasma 64.4 pg/mL (0.0-218.9)
== END 2024-02-28 23:59 | disposition home or self-care (01) ==
LOC: LAB 14:50
PROVIDERS: PCP Physician Assistant; Visit Provider Nurse Practitioner Family
DX: I15.0 Renovascular hypertension (principal); R07.9 Chest pain, unspecified
CPT/HCPCS: 36415; 82384; 83835

== ENCOUNTER 2024-03-01 14:05 | Outpatient (CLI) | payer OTHER, SELFPAY | END 2024-03-01 23:59 | disposition home or self-care (01) | LOC: RT 14:05 | PROVIDERS: PCP Physician Assistant; Visit Provider Nurse Practitioner Family | DX: R07.9 Chest pain, unspecified (principal); I15.0 Renovascular hypertension | CPT/HCPCS: 93306 ==

== ENCOUNTER 2024-03-19 08:00 | Day surgery (SDC) | payer OTHER, SELFPAY ==
[2024-03-19 08:21] VITALS: BP 168/91; PULSE 105; RESP 18; TEMP 36.4; O2SAT 100; BMI 41.5
[2024-03-19 08:53] VITALS: BP 192/92; PULSE 97; RESP 19; O2SAT 99
[2024-03-19 08:55] VITALS: BP 192/92; PULSE 98; RESP 19; O2SAT 99
[2024-03-19 09:03] VITALS: BP 151/96; PULSE 93; RESP 16; O2SAT 99
--- NOTE | 2024-03-19 09:03 | EXP.PAIN.PRO ---
Procedure Date: 03/19/24 Time: 08:45 Anesthesiologist:: Denis Hare CRNA Complications:: None Pre-procedure Diagnosis:: Degenerative disc lumbar spine multilevels. Lumbar radiculopathy. Lumbar postlaminectomy syndrome. Post-procedure Diagnosis:: Same. Indications for Procedure:: Patient is a very pleasant 44-year-old female comes our clinic today for intrathecal pain pump interrogation refill. She is currently being managed with bupivacaine 15 mg/mL. Her current rate is 2.640 mg/day. Patient is reporting moderate to severe pain in the low back as well as bilateral hip and leg radicular symptoms. She rates her pain 8/10. I explained in detail to the patient regarding the need to increase the rate on a weekly basis until finding the threshold for pain relief. Also explained in detail with the patient the possibility of her legs becoming numb due to increasing the intrathecal medicine. Patient will schedule next week for additional increase. Also, weekly increases until threshold is met. I will increase her by 10% today. Patient voices understanding. Procedure Details:: Details of the procedure explained to the patient. The patient taken procedure room placed in sitting position. The area of the pump was cleansed using chlorhexidine as a cleansing solution. The pump was interrogated. The pump was accessed with ease using a 22-gauge inch and half needle. 8 mL of solution was withdrawn discarded appropriate. The pump was then filled with 20 cc of solution containing bupivacaine 15 mg/mL. Her pump rate will be increased by 10%. The new rate will be 2.907 mg today. Patient tolerated procedure without difficulty. No complications Plan and Disposition:: Patient was discharged without incident.
== END 2024-03-19 09:07 | disposition home or self-care (01) ==
PROVIDERS: PCP Physician Assistant; Visit Provider Nurse Anesthetist, Certified Registered
DX: M51.16 Intervertebral disc disorders with radiculopathy, lumbar region (principal); M96.1 Postlaminectomy syndrome, not elsewhere classified; Z97.8 Presence of other specified devices; Z45.1 Encounter for adjustment and management of infusion pump
CPT/HCPCS: 62370

== ENCOUNTER 2024-03-29 09:18 | Outpatient (POV) | payer OTHER, SELFPAY ==
[2024-03-29 09:43] VITALS: BP 153/89; PULSE 102; RESP 18; O2SAT 99; BMI 43.2
--- NOTE | 2024-03-29 10:37 | EXP.PAIN.PRO ---
Procedure Date: 03/29/24 Time: 09:31 Anesthesiologist:: Yolie Pierre APRN Complications:: None Pre-procedure Diagnosis:: Degenerative disc disease of lumbar spine with lumbar radiculopathy symptoms, lumbar postlaminectomy syndrome Post-procedure Diagnosis:: Same Indications for Procedure:: Patient is a pleasant 44-year-old female who presents today for intrathecal adjustment and reprogram. Patient is currently managed with 15 mg/mL of bupivacaine with a daily dose of 2.907 mg/day. Patient denies any side effects from this medication. She does state that she just feels like she continues any chest pain but the pain continues to bother her on a daily basis. Patient is also currently managed with tizanidine 4 mg 3 times a day however she states that she feels like this is coming to a lull. Patient states she does not really feel like it works as well as it originally did. She states that she did talk to Pat at the last refill and he did mention about increasing the tizanidine and to follow-up with our office for this. Her Amari has been reviewed and is appropriate. Physical Exam: General: Alert and oriented x3, no acute distress, pleasant and cooperative Lungs: Respirations even and unlabored, symmetrical chest expansion Eyes: PERRL Musculoskeletal: Flexion and extension of lumbar [spine] somewhat guarded secondary to pain, [antalgic gait noted] Neurological: Speech clear, no gross sensory deficit Procedure Details:: Informed consent was obtained and the risk and benefits of the procedure were explained to the patient. Patient was taken to the procedure room where noninvasive monitoring was placed including noninvasive blood pressure cuff and pulse oximeter. Patient's pump was interrogated and was reprogrammed to bupivacaine 3.052 mg/day. The patient tolerated the procedure well with no complications. Plan and Disposition:: Patient tolerated her intrathecal increase with no complications and was discharged neurologically intact. I did discuss with patient that we can see about increasing her tizanidine. She did just recently get a refill. I have counseled her that she can take 2 tablets at bedtime and during the day and at her next follow-up to let me know if this made any improvement. Patient acknowledges understanding and agrees with plan of care. Patient will return to clinic in 2 weeks for possible additional adjustment and reprogram. We will see the patient back in the clinic at the next intrathecal refill. Patient has been instructed to contact the clinic with any concerns before the next appointment. Dr. Jimenez has reviewed this note and agrees with this plan of care. This note was dictated using voice recognition software and make contain errors or omissions. -- It Is medically necessary for this patient to continue to have their intrathecal pump refilled at regular intervals. This patient had an intrathecal pain pump implanted after meeting criteria of chronic intractable pain for greater than 3 months and failing conservative treatments. Patient has committed and been compliant to the treatment plan and all planned follow up care. Since implantation of the intrathecal pain pump, the patient has had decreased pain and been more functional. Oral medications have been reduced including intake of oral opioids. Patient continues to do well with intrathecal therapy with decrease in pain symptoms and increase in functional status. Stopping intrathecal medications can lead to life threatening withdrawal, seizures, cardiac arrest, severe pain, and possible . Pumps that are not refilled at regular intervals can be damages and cause and need for replacement. We continually titrate dose and concentration to optimize pain relief and function. We are limited in concentration for certain drugs to safely deliver medications through the pump and stay within the recommendations from the Polyanalgesic Consensus Committee Guidelines. Depending on dose and concentration these pumps may need to be refilled sooner than 3 months as we titrate.
== END 2024-03-29 23:59 | disposition home or self-care (01) ==
PROVIDERS: PCP Physician Assistant; Visit Provider Nurse Practitioner Family
DX: M51.16 Intervertebral disc disorders with radiculopathy, lumbar region (principal); M96.1 Postlaminectomy syndrome, not elsewhere classified; Z97.8 Presence of other specified devices; Z45.1 Encounter for adjustment and management of infusion pump
CPT/HCPCS: 62368; 99213; G0463

== ENCOUNTER 2024-04-04 14:25 | Emergency (ER) | payer OTHER, SELFPAY ==
[2024-04-04 14:26] VITALS: BP 116/68; PULSE 71; RESP 18; TEMP 36.6; O2SAT 97; BMI 44.9
--- NOTE | 2024-04-04 14:33 | CT_ITS ---
FINAL REPORT TECHNIQUE: NASCET technique utilized for stenosis evaluation. CLINICAL HISTORY: R sided facial droop, LUE discoordination FINDINGS: RIGHT CAROTID: No significant stenosis is seen of the cervical common or internal carotid artery. LEFT CAROTID: No significant stenosis seen of the cervical common or internal carotid artery. VERTEBRALS: The vertebrals are patent. The right vertebral artery is dominant. No significant stenosis is present. IMPRESSION: No significant arterial abnormality. Reviewed, Interpreted and Dictated by José Luis Muñiz MD Transcribed by Cathryn Muñoz Authenticated and [facility]
--- NOTE | 2024-04-04 14:33 | XR_ITS ---
FINAL REPORT CLINICAL HISTORY: R sided facial droop, LUE discoordination FINDINGS: A single view of the chest was obtained. The heart is normal in size. The mediastinum is unremarkable. There are mild chronic changes in the lung bases. There is no acute pulmonary abnormality. There is no pleural effusion. There is no pneumothorax. There is no acute osseous abnormality. IMPRESSION: No acute cardiopulmonary process. Reviewed, Interpreted and Dictated by José Luis Muñiz MD Transcribed by Cathryn Muñoz Authenticated and [facility]
--- NOTE | 2024-04-04 14:33 | CT_ITS ---
FINAL REPORT TECHNIQUE: Axial CT images were performed through the head. Coronal reformatted images were submitted. This study was performed with techniques to keep radiation doses as low as reasonably achievable (ALARA). Individualized dose reduction techniques using automated exposure control or adjustment of mA and/or kV according to the patient's size were employed. CLINICAL HISTORY: R sided facial droop, LUE discoordination COMPARISON: 02/27/2023 FINDINGS: The ventricles are normal in size. There is no evidence of hemorrhage. There is no mass or edema identified. There is no abnormal extra-axial fluid seen. There is lobular mucoperiosteal thickening in both maxillary sinuses consistent with chronic sinusitis. IMPRESSION: No acute intracranial process. Chronic sinusitis. Reviewed, Interpreted and Dictated by José Luis Muñiz MD Transcribed by Cathryn Muñoz Authenticated and [facility]
--- NOTE | 2024-04-04 14:33 | CT_ITS ---
FINAL REPORT TECHNIQUE: thin section axial CT with and without IV contrast supplemented with multiplanar 3-D reconstruction of the head. This study was performed with techniques to keep radiation doses as low as reasonably achievable, (ALARA)individualized dose reduction techniques using automated exposure control or adjustment of mA and/or kV according to the patient's size were employed. CLINICAL HISTORY: R sided facial droop, LUE discoordination FINDINGS: HEAD CT: The ventricles are normal in size. There is no evidence of hemorrhage. No masses are identified. No extra-axial fluid is seen. CTA: There is a normal intracranial branching pattern. There is no significant stenosis, aneurysm or occlusion. IMPRESSION: No evidence of large vessel occlusion. Diffusion-weighted MRI may be of value to assess for small foci of acute ischemia. Reviewed, Interpreted and Dictated by José Luis Muñiz MD Transcribed by Cathryn Muñoz Authenticated and [facility]
--- NOTE | 2024-04-04 14:34 | ECG_ITS ---
APPROVED REPORT Exam: Resting ECG HR:67 bpm ECG Measurements Heart Rate 67 AXES IL 142 P 59 QRSd 89 QRS 76 QT 389 T 40 QTc 405 Conclusion SINUS RHYTHM NORMAL ECG Electronically signed by : RIYA AGUIRRE, 04/04/2024 16:07:37
--- NOTE | 2024-04-04 14:44 | ED_ITS ---
Discharge Plan Disposition Patient Disposition: Home, Self-Care Chief Complaint: Neuro Symptoms/Deficit Prescriptions Prescriptions: No Action cholecalciferol (vitamin D3) 50 mcg (2,000 unit) capsule 25 mcg PO DAILY duloxetine 60 mg capsule,delayed release(DR/EC) 60 mg PO DAILY montelukast 10 mg tablet 10 mg PO DAILY folic acid 1 mg tablet 1 mg PO DAILY Linzess 290 mcg capsule 290 mcg PO DAILY sulfasalazine 500 mg tablet,delayed release (DR/EC) 1,000 mg PO BID mecobalamin (vitamin B12) 10,000 mcg recon soln 10,000 mcg SQ MONTHLY Humira Pen 40 mg/0.8 mL pen injector kit 40 mg SQ QOW levocetirizine 5 mg tablet 5 mg PO DAILY ferrous sulfate 325 mg (65 mg iron) tablet 325 mg PO BID dexlansoprazole 60 mg capsule,biphase delayed releas 60 mg PO DAILY lisinopril 20 mg tablet 20 mg PO BID Qty: 180 1RF carvedilol [Coreg] 25 mg tablet 50 mg PO BID Qty: 360 1RF Rx Instructions: give with food (meal/snack) Wegovy 0.25 mg/0.5 mL pen injector 0.25 mg SQ WEEKLY Qty: 2 0RF Rx Instructions: administer weeks 1 through 4 of therapy mirtazapine [Remeron] 15 mg tablet 15 mg PO HS Qty: 30 2RF hydrochlorothiazide 25 mg tablet See Rx Instructions .ROUTE .COMPLEX Qty: 90 0RF Hold Instructions: Resume on 07/15/23. Dose Instruction: TAKE 1 TABLET BY MOUTH EVERY MORNING Rx Instructions: TAKE 1 TABLET BY MOUTH EVERY MORNING tizanidine 4 mg tablet 4 mg PO TID Qty: 90 5RF ipratropium bromide 21 mcg (0.03 %) spray,non-aerosol 1 spray INTRANASAL HS Horizant 600 mg tablet extended release 600 mg PO DAILY bupivacaine HCl 0.5 % (5 mg/mL) Solution 2.3988 mg intradermal DAILY pantoprazole [Protonix] 40 mg tablet,delayed release (DR/EC) 40 mg PO BID Qty: 60 0RF Referrals Follow up/Referrals: Provider,Referral, MD [Referring] - See instructions Activity Restrictions/Add. Instructions Additional Instructions/Restrictions: Call your family doctor to establish care for this visit to the emergency department and schedule follow-up within 48 hours to ensure improvement. If you have any worsening of your condition or any other concerning signs or symptoms, return to the emergency department or your primary care doctor for further evaluation. Talk your family doctor about getting repeat labs to evaluate for low potassium again. Clinical Impressions Clinical Impression: Hypotension, Hypokalemia, BRUNA (acute kidney injury), Transient neurological symptoms Discharge ED Provider: Philip Harris General Adult HPI <Yolie Jas Leos, DO - Last Filed: 04/04/24 15:53> General Chief complaint: Neuro Symptoms/Deficit Stated complaint: poss stroke systems Time Seen by Provider: 04/04/24 14:28 Mode of Arrival: EMS Source of Information: Patient and EMS Limitations: No Limitations Description of Symptoms (Recalled from ER Triage Doc. by RN): r sided weakness and facial droop, blurred vision History of Present Illness HPI narrative: This patient is a 44-year-old female with a history of hypertension, renal artery stenosis, restless leg syndrome, GERD, and anxiety presenting to the emergency department for evaluation with concern for feeling unwell. Patient reports that she started feeling unwell around 1:30 PM, feeling very weak and flushed. She notes that she thought maybe her blood pressure was too low because of her blood pressure medications that she takes, so she went to her outpatient PCP clinic where her blood pressure was checked and they noted concern for right-sided facial droop. They called EMS for possible stroke symptoms. Patient notes that she feels like her vision is blurry in both eyes. Overall, she denies any other symptoms such as headache, numbness, tingling, speech difficulty, or focal weakness. EMS arrived with the patient and noted that their stroke scale was negative and the patient did not have any appreciable weakness or droop on their exam. No other concerns or complaints noted and patient was fine in her usual state of health prior to 1:30 PM. Related Data Home Medications Medication Instructions Recorded Confirmed cholecalciferol (vitamin D3) 50 25 mcg PO DAILY Supplement 11/24/21 04/04/24 mcg (2,000 unit) capsule linaclotide 290 mcg capsule 290 mcg PO DAILY constipation 01/24/23 04/04/24 (Linzess) sulfasalazine 500 mg 1,000 mg PO BID inflammation 05/05/23 04/04/24 tablet,delayed release adalimumab 40 mg/0.8 mL 40 mg SQ QOW inflammation 06/26/23 04/04/24 subcutaneous pen kit (Humira Pen) levocetirizine 5 mg tablet 5 mg PO DAILY Allergy Symptoms 06/26/23 04/04/24 mecobalamin (vitamin B12) 10,000 10,000 mcg SQ MONTHLY Supplement 07/05/23 04/04/24 mcg solution for injection bupivacaine HCl 0.5 % (5 mg/mL) 2.3988 mg intradermal DAILY 10/05/23 04/04/24 injection solution gabapentin enacarbil 600 mg 600 mg PO DAILY 10/05/23 04/04/24 tablet,extended release (Horizant ER) ipratropium bromide 21 mcg (0.03 1 spray intranasal HS 10/05/23 04/04/24 %) nasal spray duloxetine 60 mg capsule,delayed 60 mg PO DAILY 12/15/23 04/04/24 release ferrous sulfate 325 mg (65 mg 325 mg PO BID 12/26/23 04/04/24 iron) tablet montelukast 10 mg tablet 10 mg PO DAILY 12/26/23 04/04/24 dexlansoprazole 60 mg 60 mg PO DAILY 01/03/24 04/04/24 capsule,biphase delayed release folic acid 1 mg tablet 1 mg PO DAILY 02/20/24 04/04/24 Previous Rx's Medication Instructions Recorded pantoprazole 40 mg tablet,delayed 40 mg PO BID #60 tabs 10/05/23 release (Protonix) mirtazapine 15 mg tablet (Remeron) 15 mg PO HS #30 tabs 11/08/23 hydrochlorothiazide 25 mg tablet See Rx Instructions .Route 12/11/23 .COMPLEX #90 tabs tizanidine 4 mg tablet 4 mg PO TID muscle spasms #90 tabs 01/10/24 lisinopril 20 mg tablet 20 mg PO BID #180 tabs 02/13/24 carvedilol 25 mg tablet (Coreg) 50 mg (2 x 25 mg) PO BID #360 tabs 03/21/24 semaglutide (weight loss) 0.25 0.25 mg (0.5 mL) SQ WEEKLY #2 mL 03/21/24 mg/0.5 mL subcutaneous pen injector (Wegovy) Allergies Allergy/AdvReac Type Severity Reaction Status Date / Time cefaclor [CEFACLOR] Allergy Unknown Verified 04/04/24 13:50 Penicillins [PENICILLINS] Allergy Unknown Verified 04/04/24 13:50 Cephalosporins Allergy Verified 04/04/24 13:50 trazodone AdvReac Severe Hallucinati Verified 04/04/24 13:50 ng amlodipine AdvReac Mild edema Verified 04/04/24 13:50 PFSH <Yolie Leos DO - Last Filed: 04/04/24 15:53> PFSH Disclaimer: The information contained in this section may have been updated after the patient was seen, as this information can be updated by other users. Medical History Chest pain SOB (shortness of breath) on exertion Neck pain Mastalgia Ankylosing spondylitis Hematemesis Fibromyalgia B12 deficiency Fracture of greater tuberosity of humerus Hip pain Knee pain Mood disturbance Iron metabolism disorder Anxiety Iron deficiency anemia Restless leg syndrome Insomnia Neuropathic pain Back pain Hypertension Morbid obesity Barretts esophagus Osteoarthritis of left knee Atypical chest pain Bladder spasms Surgical History History of esophagogastroduodenoscopy (EGD) Status post gastric bypass for obesity History of tonsillectomy History of hysterectomy including cervix Hx of tubal ligation Hx of gastric bypass History of appendectomy History of cholecystectomy History of bilateral knee replacement Family History Other Cancer Coronary artery disease Diabetes Hypertension Social History Smoking Status: Never smoker second hand exposure: No alcohol intake: never substance use type: denies use current occupational status: other Travel in the last 8 weeks: None household members: significant other and children housing: house lives independently: Yes marital status: life partner education level: high school service: No assisted: No current occupation: [employer] current occupational exposures/hazards: No caffeine: Yes physical activity: walking frequency: 5-6 times per week do you feel safe at home: Yes victim of physical abuse: No victim of emotional abuse: No victim of sexual abuse: No would you like helpful sources: No <Yolie Leos DO - Last Filed: 04/04/24 15:53> ROS Obtained: Yes All systems reviewed & no additional complaints except as documented Physical Exam <Yolie Leos DO - Last Filed: 04/04/24 15:53> General General appearance: alert, in no apparent distress and obese Head Head exam: atraumatic and normocephalic Eye Eye exam: Present normal appearance, PERRL and EOMI ENT ENT exam: Present normal exam, normal oropharynx, mucous membranes moist and normal external ear exam Neck Neck exam: Present normal inspection, full ROM and trachea midline; Absent tenderness Chest Chest inspection: Present normal inspection and symmetric chest wall rise; Absent tenderness Respiratory Respiratory exam: Present normal lung sounds bilaterally; Absent respiratory distress, wheezes, stridor or accessory muscle use Cardiovascular Cardiovascular exam: Present regular rate and normal rhythm Abdominal Exam Abdominal exam: Present soft; Absent distention, tenderness or guarding Extremities Exam Extremities exam: Present normal inspection, full ROM and normal capillary refill; Absent tenderness or edema Back Exam Back exam: Present normal inspection and full ROM; Absent tenderness Neurological Exam Neurological exam: Present alert, oriented X3 and normal gait Expanded Neurological Exam Patient oriented to: Present person, place and time Motor strength - LUE: 5/5 Motor strength - RUE: 5/5 Motor strength - LLE: 5/5 Motor strength - RLE: 4/5 Sensory exam upper extremity: Normal: light touch Sensory exam lower extremity: Normal: light touch Coma scale eye opening: Spontaneous Coma scale motor response: Obeys commands Coma scale verbal response: Oriented Coma scale total: 15 Comment: Patient has subtle right lower facial droop of the partial face. This can be overcome with smiling and with talking. She also has discoordination of her left upper extremity as well as subtle drift of her right lower extremity. Sensation is intact of the face, bilateral upper and lower extremities. No other neurologic deficits noted on exam. NIH stroke scale of 4 for things listed above. Psychiatric Psychiatric exam: Present normal affect and normal mood Skin Skin exam: Present warm and dry <Philip Harris MD - Last Filed: 04/04/24 19:14> Expanded Neurological Exam Coma scale total: 15 Medical Decision Making <Yolie Leos DO - Last Filed: 04/04/24 15:53> Medical Records Medical records reviewed: Yes I reviewed the patient's medical records. Amari Inquiry Pt receiving controlled substance: No Vital Signs: 04/04/24 14:26 04/04/24 17:10 04/04/24 18:01 Temperature 97.9 F Temperature Source Oral Pulse Rate 62 60 Pulse Rate [Left] 71 Respiratory Rate 18 Blood Pressure 112/71 88/56 L Blood Pressure [Left Arm] 116/68 Blood Pressure Mean 63 Blood Pressure Mean [Left Arm] 84 02 Sat by Pulse Oximetry 97 96 96 Oxygen Delivery Method Room Air Room Air Room Air 04/04/24 18:31 Temperature Temperature Source Pulse Rate 58 L Pulse Rate [Left] Respiratory Rate Blood Pressure 108/69 L Blood Pressure [Left Arm] Blood Pressure Mean 78 Blood Pressure Mean [Left Arm] 02 Sat by Pulse Oximetry 96 Oxygen Delivery Method Room Air Lab Data Lab results reviewed: Yes I reviewed the patient's lab results. Lab Results 04/04/24 14:28: WBC 15.7 H, RBC 4.78, Hgb 14.6, Hct 43.6, MCV 91.3, MCH 30.5, MCHC 33.4, RDW 13.4, Plt Count 387, MPV 9.5, Neut % (Auto) 71.4, Lymph % (Auto) 23.1, Forrest % (Auto) 4.9, Eos % (Auto) 0.1, Baso % (Auto) 0.5, Neut # (Auto) 11.2 H, Lymph # (Auto) 3.6, Forrest # (Auto) 0.8, Eos # (Auto) 0.0, Baso # (Auto) 0.1, Total Counted 100, Neutrophils % (Manual) 64, Lymphocytes % (Manual) 33, Monocytes % (Manual) 3, Platelet Estimate Normal, RBC Morphology Normal, PT 10.4, INR 0.96, APTT 24.4, Sodium 141, Potassium 3.1 L, Chloride 107, Carbon Dioxide 24, Anion Gap 13.1, BUN 19 H, Creatinine 1.30 H, Estimated Creat Clear 51, Estimated GFR 45 L, Est GFR ( Amer) 54 L, Glucose 104 H, Calcium 9.9, Total Bilirubin 0.6, AST 30, ALT 24, Alkaline Phosphatase 81, Troponin I < 0.01, Total Protein 8.0, Albumin 4.8, Globulin 3.2, Albumin/Globulin Ratio 1.5, TSH 1.87, Thyroxine (T4) 8.0, Serum HCG, Qual Negative, HCG, Quant < 2 04/04/24 15:10: Urine Color Yellow, Urine Appearance Clear, Urine pH 5.5, Ur Specific [place] 1.020, Urine Protein Negative, Urine Glucose (UA) Negative, Urine Ketones Negative, Urine Blood Negative, Urine Nitrate Negative, Urine Bilirubin Negative, Urine Urobilinogen 0.2, Ur Leukocyte Esterase Negative, Urine RBC None, Urine WBC None, Ur Squamous Epith Cells 3-5, Urine Bacteria Trace, Hyaline Casts 5-10 04/04/24 15:35: SARS-CoV-2 (PCR) Not detected, Influenza A Untype (PCR) Not detected, Influenza Type B (PCR) Not detected 04/04/24 17:48: Troponin I < 0.01 04/04/24 14:28 04/04/24 14:28 Orders (Tests/Meds): ED MEDICATIONS Discontinued Medications Generic Name Dose Route Start Last Admin Trade Name Freq PRN Reason Stop Dose Admin Lactated Ringer's 1,000 mls @ 999 mls/hr 04/04/24 15:20 04/04/24 15:34 Lactated Ringer's 1000 Ml Bag IV 04/04/24 16:20 999 mls/hr .Q1H1M ONE Administration Potassium Chloride/Water 100 mls @ 100 mls/hr 04/04/24 15:26 04/04/24 16:48 Potassium Chloride 10meq/100ml Ivpb IV 04/04/24 17:25 100 mls/hr Q1H ERINN Administration Lactated Ringer's 1,000 mls @ 999 mls/hr 04/04/24 15:26 04/04/24 15:43 Lactated Ringer's 1000 Ml Bag IV 04/04/24 16:26 999 mls/hr .Q1H1M ONE Administration Iopamidol 100 ml 04/04/24 15:00 04/04/24 15:02 Iopamidol-370 (76%);100ml Bottle IV 04/04/24 15:01 100 ml ONCE ONE Administration Potassium Chloride 40 meq 04/04/24 15:25 04/04/24 15:34 Potassium Chloride 20meq Tab PO 04/04/24 15:26 40 meq ONCE ONE Administration Sodium Chloride 40 ml 04/04/24 15:00 04/04/24 15:02 0.9 % Sodium Chloride 50 Ml Vial IV 04/04/24 15:01 40 ml ONCE ONE Administration Sodium Chloride 10 ml 04/04/24 15:00 04/04/24 15:02 Sodium Chloride 0.9% 10ml Flush Syringe IV 04/04/24 15:01 10 ml ONCE ONE Administration ORDERS Category Date Time Status CT angio head Stat Cat Scan 04/04/24 14:[address] angio neck Stat Cat Scan 04/04/24 14:[address] head/brain wo con Stat Cat Scan 04/04/24 14:33 Completed XR chest portable Stat Exams 04/04/24 14:33 Completed Activated Partial Thrombo Time Stat Lab 04/04/24 14:28 Completed CBC w/Auto Diff [Complete Blood Count Auto Diff] Stat Lab 04/04/24 14:28 Completed Comprehensive Metabolic Panel Stat Lab 04/04/24 14:28 Completed HCG,Quantitative Stat Lab 04/04/24 14:28 Completed Prothrombin Time INR Stat Lab 04/04/24 14:28 Completed Rapid PCR Covid and Flu A/B Stat Lab 04/04/24 15:35 Completed Serum [HCG Qualitative, Serum] Stat Lab 04/04/24 14:28 Completed T4 (Thyroxine) Stat Lab 04/04/24 14:28 Completed Thyroid Stimulating Hormone Stat Lab 04/04/24 14:28 Completed Troponin I Q3H Lab 04/04/24 17:48 Completed Troponin I Q3H Lab 04/04/24 20:45 Ordered Troponin I Stat Lab 04/04/24 14:28 Completed Urinalysis and Microscopic Stat Lab 04/04/24 15:10 Completed ECG Data Tracing #1: I reviewed this ECG and interpreted as documented below: Normal sinus rhythm with a ventricular rate of [address] changes concerning for ischemia. Normal axis and intervals. ECG initial impression date: 04/04/24 ECG initial impression time: 14:37 Medical Decision Narrative: In summary, this patient is a 44-year-old female presenting to the Emergency Department for evaluation of feeling unwell with concern for right-sided facial droop at PCPs office. Differential diagnoses considered include but are not limited to CVA, sepsis, ACS, hypoglycemia, hypotension, other stroke mimic, complex migraine. Ruling out the most morbid conditions drove assessment. It should be noted patient's history includes hypertension, anxiety, hypothyroidism which may or may not be at goal therapy. This complicates all aspects of care by increasing patient's risk for morbidity. On exam, the patient is lying in bed in no acute distress. GCS of 15, ANO x 4. She has subtle right-sided lower facial droop which can be overcome with smiling and talking. It is noted to be intermittently present. She also has subtle right lower extremity drift but does not hit bed on clinical exam. She also has subtle discoordination of the left upper extremity, but this can be overcome. Given all of these things, she gets an NIH stroke scale of 4, but exam has varied from [id number]. Given last known normal 1:30 PM with these abnormal neurologic symptoms and findings, decision was made to stroke protocol the patient and take her urgently for CT scan of the head and CTAs. Workup included CBC, CMP, troponin, test, TSH, T4, PT, PTT, urinalysis, chest x-ray, and EKG. EKG obtained is reassuring. I independently interpreted stroke CT scans prior to the radiologist read and noted no acute large vessel occlusion, intracranial hemorrhage, or space- occupying lesion. Please see their read for final interpretation. Labs were obtained that demonstrated BRUNA, hypokalemia, and leukocytosis. Likely contraction in the setting of volume depletion, as the patient does appear clinically dry on exam. She does have low blood pressure as well. Viral swab, chest x-ray, and urinalysis are pending to assess for cause of this 2 L of IV fluids were administered as well as IV and oral potassium replacement. I had an interactive discussion with Dr. Vickers interventional neurologist at [facility] no large vessel occlusion. On reassessment at 151, patient had an NIH stroke scale of 0. She now has no focal neurologic deficits at all on exam. Doubt true TIA or CVA given that the patient had intermittent symptoms with weakness that was able to be overcome on exam. At 1545, patient care signed out to the oncoming provider, Dr. Harris pending fluid replacement, potassium repletion, and reassessment. <Philip Harris MD - Last Filed: 04/04/24 19:14> Vital Signs: 04/04/24 14:26 04/04/24 17:10 04/04/24 18:01 Temperature 97.9 F Temperature Source Oral Pulse Rate 62 60 Pulse Rate [Left] 71 Respiratory Rate 18 Blood Pressure 112/71 88/56 L Blood Pressure [Left Arm] 116/68 Blood Pressure Mean 63 Blood Pressure Mean [Left Arm] 84 02 Sat by Pulse Oximetry 97 96 96 Oxygen Delivery Method Room Air Room Air Room Air 04/04/24 18:31 Temperature Temperature Source Pulse Rate 58 L Pulse Rate [Left] Respiratory Rate Blood Pressure 108/69 L Blood Pressure [Left Arm] Blood Pressure Mean 78 Blood Pressure Mean [Left Arm] 02 Sat by Pulse Oximetry 96 Oxygen Delivery Method Room Air Lab Data Lab Results 04/04/24 14:28: WBC 15.7 H, RBC 4.78, Hgb 14.6, Hct 43.6, MCV 91.3, MCH 30.5, MCHC 33.4, RDW 13.4, Plt Count 387, MPV 9.5, Neut % (Auto) 71.4, Lymph % (Auto) 23.1, Forrest % (Auto) 4.9, Eos % (Auto) 0.1, Baso % (Auto) 0.5, Neut # (Auto) 11.2 H, Lymph # (Auto) 3.6, Forrest # (Auto) 0.8, Eos # (Auto) 0.0, Baso # (Auto) 0.1, Total Counted 100, Neutrophils % (Manual) 64, Lymphocytes % (Manual) 33, Monocytes % (Manual) 3, Platelet Estimate Normal, RBC Morphology Normal, PT 10.4, INR 0.96, APTT 24.4, Sodium 141, Potassium 3.1 L, Chloride 107, Carbon Dioxide 24, Anion Gap 13.1, BUN 19 H, Creatinine 1.30 H, Estimated Creat Clear 51, Estimated GFR 45 L, Est GFR ( Amer) 54 L, Glucose 104 H, Calcium 9.9, Total Bilirubin 0.6, AST 30, ALT 24, Alkaline Phosphatase 81, Troponin I < 0.01, Total Protein 8.0, Albumin 4.8, Globulin 3.2, Albumin/Globulin Ratio 1.5, TSH 1.87, Thyroxine (T4) 8.0, Serum HCG, Qual Negative, HCG, Quant < 2 04/04/24 15:10: Urine Color Yellow, Urine Appearance Clear, Urine pH 5.5, Ur Specific [place] 1.020, Urine Protein Negative, Urine Glucose (UA) Negative, Urine Ketones Negative, Urine Blood Negative, Urine Nitrate Negative, Urine Bilirubin Negative, Urine Urobilinogen 0.2, Ur Leukocyte Esterase Negative, Urine RBC None, Urine WBC None, Ur Squamous Epith Cells 3-5, Urine Bacteria Trace, Hyaline Casts 5-10 04/04/24 15:35: SARS-CoV-2 (PCR) Not detected, Influenza A Untype (PCR) Not detected, Influenza Type B (PCR) Not detected 04/04/24 17:48: Troponin I < 0.01 Orders (Tests/Meds): ED MEDICATIONS Discontinued Medications Generic Name Dose Route Start Last Admin Trade Name Freq PRN Reason Stop Dose Admin Lactated Ringer's 1,000 mls @ 999 mls/hr 04/04/24 15:20 04/04/24 15:34 Lactated Ringer's 1000 Ml Bag IV 04/04/24 16:20 999 mls/hr .Q1H1M ONE Administration Potassium Chloride/Water 100 mls @ 100 mls/hr 04/04/24 15:26 04/04/24 16:48 Potassium Chloride 10meq/100ml Ivpb IV 04/04/24 17:25 100 mls/hr Q1H ERINN Administration Lactated Ringer's 1,000 mls @ 999 mls/hr 04/04/24 15:26 04/04/24 15:43 Lactated Ringer's 1000 Ml Bag IV 04/04/24 16:26 999 mls/hr .Q1H1M ONE Administration Iopamidol 100 ml 04/04/24 15:00 04/04/24 15:02 Iopamidol-370 (76%);100ml Bottle IV 04/04/24 15:01 100 ml ONCE ONE Administration Potassium Chloride 40 meq 04/04/24 15:25 04/04/24 15:34 Potassium Chloride 20meq Tab PO 04/04/24 15:26 40 meq ONCE ONE Administration Sodium Chloride 40 ml 04/04/24 15:00 04/04/24 15:02 0.9 % Sodium Chloride 50 Ml Vial IV 04/04/24 15:01 40 ml ONCE ONE Administration Sodium Chloride 10 ml 04/04/24 15:00 04/04/24 15:02 Sodium Chloride 0.9% 10ml Flush Syringe IV 04/04/24 15:01 10 ml ONCE ONE Administration ORDERS Category Date Time Status CT angio head Stat Cat Scan 04/04/24 14:[address] angio neck Stat Cat Scan 04/04/24 14:[address] head/brain wo con Stat Cat Scan 04/04/24 14:33 Completed XR chest portable Stat Exams 04/04/24 14:33 Completed Activated Partial Thrombo Time Stat Lab 04/04/24 14:28 Completed CBC w/Auto Diff [Complete Blood Count Auto Diff] Stat Lab 04/04/24 14:28 Completed Comprehensive Metabolic Panel Stat Lab 04/04/24 14:28 Completed HCG,Quantitative Stat Lab 04/04/24 14:28 Completed Prothrombin Time INR Stat Lab 04/04/24 14:28 Completed Rapid PCR Covid and Flu A/B Stat Lab 04/04/24 15:35 Completed Serum [HCG Qualitative, Serum] Stat Lab 04/04/24 14:28 Completed T4 (Thyroxine) Stat Lab 04/04/24 14:28 Completed Thyroid Stimulating Hormone Stat Lab 04/04/24 14:28 Completed Troponin I Q3H Lab 04/04/24 17:48 Completed Troponin I Q3H Lab 04/04/24 20:45 Ordered Troponin I Stat Lab 04/04/24 14:28 Completed Urinalysis and Microscopic Stat Lab 04/04/24 15:10 Completed Medical Decision Narrative: In summary, this patient is a 44-year-old female presenting to the Emergency Department for evaluation of feeling unwell with concern for right-sided facial droop at PCPs office. Differential diagnoses considered include but are not limited to CVA, sepsis, ACS, hypoglycemia, hypotension, other stroke mimic, complex migraine. Ruling out the most morbid conditions drove assessment. It should be noted patient's history includes hypertension, anxiety, hypothyroidism which may or may not be at goal therapy. This complicates all aspects of care by increasing patient's risk for morbidity. On exam, the patient is lying in bed in no acute distress. GCS of 15, ANO x 4. She has subtle right-sided lower facial droop which can be overcome with smiling and talking. It is noted to be intermittently present. She also has subtle right lower extremity drift but does not hit bed on clinical exam. She also has subtle discoordination of the left upper extremity, but this can be overcome. Given all of these things, she gets an NIH stroke scale of 4, but exam has varied from [id number]. Given last known normal 1:30 PM with these abnormal neurologic symptoms and findings, decision was made to stroke protocol the patient and take her urgently for CT scan of the head and CTAs. Workup included CBC, CMP, troponin, test, TSH, T4, PT, PTT, urinalysis, chest x-ray, and EKG. EKG obtained is reassuring. I independently interpreted stroke CT scans prior to the radiologist read and noted no acute large vessel occlusion, intracranial hemorrhage, or space- occupying lesion. Please see their read for final interpretation. Labs were obtained that demonstrated BRUNA, hypokalemia, and leukocytosis. Likely contraction in the setting of volume depletion, as the patient does appear clinically dry on exam. She does have low blood pressure as well. Viral swab, chest x-ray, and urinalysis are pending to assess for cause of this 2 L of IV fluids were administered as well as IV and oral potassium replacement. I had an interactive discussion with Dr. [facility]ickers interventional neurologist at [facility] no large vessel occlusion. On reassessment at 1515, patient had an NIH stroke scale of 0. She now has no focal neurologic deficits at all on exam. Doubt true TIA or CVA given that the patient had intermittent symptoms with weakness that was able to be overcome on exam. At 1545, patient care signed out to the oncoming provider, Dr. Harris pending fluid replacement, potassium repletion, and reassessment. Kimberly: I assumed primary responsibility for this patient after signout from previous physician. On my evaluation after handoff from previous physician, NIHSS 0. Patient was placed in observation beginning at 3 PM in order to rule out evolving MT with delta troponins, reevaluation, fluids, stroke scans and determine need for admission versus home-going. The patient was provided cardiac monitoring, serial exams while awaiting results. Independent interpretation of workup demonstrates leukocytosis with relative neutrophilia. Chemistry with hypokalemia 3.1, BRUNA creatinine 1.3, BUN 19. Troponin negative, thyroid studies normal. hCG negative. UA unremarkable. Imaging independently interpreted and chest x-ray without acute cardiopulmonary airspace disease. CT head without acute intracranial hemorrhage. CTA of the head and neck without acute intracranial stenosis, large vessel occlusion, or other acute abnormality. Independent interpretation of EKG demonstrates sinus rhythm 67 beats a minute no ST or T wave changes concerning for acute ischemia. WA 142, QRS 89, QTc 405, axis normal. Delta troponin negative. on reevaluation, patient feeling normal and at baseline, feeling much better. This may be related to her hypokalemia and dehydration, but NIHSS is 0 on reevaluation at 7 PM.. At this time, I feel patient is appropriate for discharge. Total observation time 4 hours. Because patient at baseline without signs or symptoms of clinical decompensation, deemed appropriate for discharge. Results were relayed to patient who voiced understanding and were agreeable to outpatient management and follow up. I discussed my clinical impression with patient and answered all questions. At this time, the evidence for any other entities in the differential is insufficient to warrant any further testing or ED observation. This was explained as well. Advisory was given that persistent or worsening symptoms require further evaluation. I confirmed the understanding of this discussion. Critical Care <Yolie Leos, DO - Last Filed: 04/04/24 15:53> Critical Care Time Critical Care Time: No
[2024-04-04 14:55] LABS: Basophils # 0.1 K/mm3 (0-0.2); Basophils % 0.5 % (0.1-2.0); Chloride 107 mmol/L (98-107); Eosinophils % 0.1 % (0.1-12.0); Hematocrit 43.6 % (37.0-47.0); Hemoglobin 14.6 g/dL (12.2-16.2); Lymphocytes # 3.6 K/mm3 (0.7-4.5); Lymphocytes % 23.1 % (10-50); Mean Corpuscular HGB Conc 33.4 g/dL (31.8-35.4); Mean Corpuscular Hemoglobin 30.5 pg (27.0-31.2); Mean Corpuscular Volume 91.3 fl (81-99); Mean Platelet Volume 9.5 fl (7.4-10.4); Monocytes # 0.8 K/mm3 (0.1-1.0); Monocytes % 4.9 % (1.7-9.3); Neutrophils # 11.2 K/mm3 (1.8-7.8); Neutrophils % 71.4 % (37.0-80.0); Platelet Count 387 K/mm3 (142-424); Potassium 3.1 mmoL/L (3.5-5.1); Red Blood Count 4.78 M/mm3 (4.20-5.40); Red Cell Distribution Width 13.4 % (11.5-17.5); Sodium 141 mmol/L (136-145); White Blood Count 15.7 K/mm3 (4.8-10.8)
[2024-04-04 14:58] LABS: Alanine Aminotransferase 24 U/L (12-78); Albumin Level 4.8 g/dl (3.5-5.0); Albumin/Globulin Ratio 1.5 (1.1-1.8); Alkaline Phosphatase 81 U/L (38-126); Anion Gap 13.1 mEq/L (5-15); Aspartate Amino Transferase 30 U/L (14-36); Bilirubin,Total 0.6 mg/dl (0.2-1.3); Blood Urea Nitrogen 19 mg/dl (7-17); Calcium 9.9 mg/dl (8.4-10.2); Carbon Dioxide 24 mmol/L (22.0-30.0); Creatinine Clearance Estimated 51 mL/min (50-200); Estimated Glomerular Filt Rate 45 ml/min (>60); GFR (African American) 54 ML/MIN (>60); Globulin 3.2 g/dL (1.3-3.2); Glucose 104 mg/dl (74-100)
[2024-04-04 15:00] LABS: MANUAL DIFFERENTIAL MANUAL DIFFERENTIAL (MANUAL DIFF)
[2024-04-04] MEDS: 0.9 % SODIUM CHLORIDE 50 ML VIAL 40 ML IV (15:02)
[2024-04-04] MEDS: IOPAMIDOL-370 (76%);100ML BOTTLE 100 ML IV (15:02)
[2024-04-04] MEDS: SODIUM CHLORIDE 0.9% 10ML FLUSH SYRINGE 10 ML IV (15:02)
[2024-04-04 15:03] LABS: Activated Partial Thrombo Time 24.4 seconds (22.8-30.6); INR 0.96 (0.9-1.1); Prothrombin Time 10.4 seconds (10.1-12.5)
[2024-04-04 15:05] LABS: HCG Qualitative, Serum Negative (Negative)
[2024-04-04 15:15] LABS: Troponin I < 0.01 ng/ml (0.00-0.034)
[2024-04-04 15:18] LABS: Lymphocytes % 33 % (10-50); Monocytes % 3 % (2-9); Neutrophils % 64 % (42-76); Platelet Estimate Normal; RBC Morphology Normal; Total Cells Counted 100
[2024-04-04 15:29] LABS: Thyroid Stimulating Hormone 1.87 uIU/mL (0.465-4.68)
[2024-04-04 15:32] LABS: Microscopic, Urine URINE MICROSCOPIC (MICROSCOPIC)
[2024-04-04] MEDS: LACTATED RINGERS 1000ML 1,000 ML 999 ML IV ×2 (15:34→15:43)
[2024-04-04] MEDS: POTASSIUM CHLORIDE 20MEQ TAB 40 MEQ PO (15:34)
[2024-04-04 15:36] LABS: Appearance,Urine CLEAR (Clear); Bilirubin,Urine Negative (Negative); Blood, Urine Negative (Negative); Color,Urine YELLOW (Yellow); Glucose,Urine (UA) Negative (Negative); Ketones,Urine Negative (Negative); Leukocyte Esterase,Urine Negative (Negative); Nitrate,Urine Negative (Negative); PH,Urine 5.5 (5.0-8.5); Protein,Urine Negative (Negative); Urobilinogen,Urine 0.2 EU/dl (0.2)
[2024-04-04 15:40] LABS: Coronavirus 19, PCR Not Detected (NotDetected); Influenza A, PCR Not Detected (NotDetected); Influenza B, PCR Not Detected (NotDetected)
[2024-04-04] MEDS: KCl 10mEq/100ml 100 ML 100 MEQ IV ×2 (15:43→16:48)
[2024-04-04 16:42] LABS: HCG,Quantitative < 2 mIU/ml (0-5.42)
[2024-04-04 16:42] LABS: Bacteria,Urine Trace /lpf
[2024-04-04 17:10] VITALS: BP 112/71; PULSE 62; O2SAT 96
[2024-04-04 18:01] VITALS: BP 88/56; PULSE 60; O2SAT 96
[2024-04-04 18:31] VITALS: BP 108/69; PULSE 58; O2SAT 96
[2024-04-04 18:45] LABS: Troponin I < 0.01 ng/ml (0.00-0.034)
[2024-04-04 19:17] VITALS: BP 108/69; PULSE 61; RESP 20; TEMP 36.6; O2SAT 97
== END 2024-04-04 19:19 | disposition home or self-care (01) ==
PROVIDERS: Emergency Medicine; Emergency Provider Emergency Medicine; PCP Physician Assistant
DX: I95.9 Hypotension, unspecified (principal); E87.6 Hypokalemia; R29.818 Other symptoms and signs involving the nervous system; N17.8 Other acute kidney failure; I10 Essential (primary) hypertension; E03.9 Hypothyroidism, unspecified; R06.02 Shortness of breath
CPT/HCPCS: 70450; 70496; 70498; 71045; 80050; 80053; 81001; 84436; 84443; 84484; 84702; 84703; 85007; 85025; 85610; 85730; 87636; 93005; 96365; 96366; 99285; J7120; Q9967

== ENCOUNTER 2024-04-17 14:19 | Outpatient (POV) | payer OTHER, SELFPAY ==
[2024-04-17 14:55] VITALS: BP 157/98; PULSE 87; RESP 18; O2SAT 96; BMI 43.2
--- NOTE | 2024-04-17 16:55 | P.PCN_ITS ---
Procedure Date: 04/17/24 Time: 15:22 Anesthesiologist:: Yolie Pierre APRN Complications:: None Pre-procedure Diagnosis:: Degenerative disc disease of lumbar spine with lumbar radiculopathy symptoms, lumbar postlaminectomy syndrome Post-procedure Diagnosis:: Same Indications for Procedure:: Patient is a pleasant 44-year-old female who presents today for intrathecal adjustment and reprogram. Today she rates her pain a 8 out of 10. Patient denies any new trauma or injury. Patient does state that she continues to have chronic pain and that before when she had morphine in her time she did have better coverage however she is in a lot of urinary retention and constipation and that is why we had to change her pump medications to the bupivacaine. Patient was previously on tramadol and she is asking if we can start this medication again. Patient is also prescribed 5 days of daily 4 mg 2 tablets at bedtime and 1 tablet during the day. Patient states that she has tried to take 2 of those tablets during the day however cannot tolerate that due to increased drowsiness. Patient states that she feels like she gets more benefit of the tizanidine at bedtime to help her sleep. She is currently managed with bupivacaine 15 mg/mL with a daily dose of 3.052 mg/day she denies any side effects from this medication. Her Amari has been reviewed and is appropriate. Physical Exam: General: Alert and oriented x3, no acute distress, pleasant and cooperative Lungs: Respirations even and unlabored, symmetrical chest expansion Eyes: PERRL Musculoskeletal: Flexion and extension of lumbar [spine] somewhat guarded secondary to pain, [antalgic gait noted] Neurological: Speech clear, no gross sensory deficit Procedure Details:: Informed consent was obtained and the risk and benefits of the procedure were explained to the patient. Patient was taken to the procedure room where noninvasive monitoring was placed including noninvasive blood pressure cuff and pulse oximeter. Patient's pump was interrogated and was reprogrammed to bupiva roxane 3.512 mg/day. The patient tolerated the procedure well with no complications. Plan and Disposition:: Patient tolerated her intrathecal increase with no complications and was discharged neurologically intact. I have discussed with the patient that I will change some of her medications such as leaving the tizanidine for 8 mg at bedtime however adding the addition of methocarbamol 500 mg daily and will send in a 14-day supply of this medication to see how she does with it. Patient is agreeable to this plan of care. I will also send in tramadol 50 mg twice a day and provide a 1 month supply of this medication. Patient will return to clinic in 2 weeks for reevaluation of symptoms and plan of care. Patient has been instructed to contact the clinic with any concerns before the next appointment. Dr. Jimenez has reviewed this note and agrees with this plan of care. This note was dictated using voice recognition software and make contain errors or omissions. -- It Is medically necessary for this patient to continue to have their intrathecal pump refilled at regular intervals. This patient had an intrathecal pain pump implanted after meeting criteria of chronic intractable pain for greater than 3 months and failing conservative treatments. Patient has committed and been compliant to the treatment plan and all planned follow up care. Since implantation of the intrathecal pain pump, the patient has had decreased pain and been more functional. Oral medications have been reduced including intake of oral opioids. Patient continues to do well with intrathecal therapy with decrease in pain symptoms and increase in functional status. Stopping intrathecal medications can lead to life threatening withdrawal, seizures, cardiac arrest, severe pain, and possible . Pumps that are not refilled at regular intervals can be damages and cause and need for replacement. We continually titrate dose and concentration to optimize pain relief and function. We are limited in concentration for certain drugs to safely deliver medications through the pump and stay within the recommendations from the Polyanalgesic Consensus Committee Guidelines. Depending on dose and concentration these pumps may need to be refilled sooner than 3 months as we titrate.
== END 2024-04-17 23:59 | disposition home or self-care (01) ==
PROVIDERS: PCP Physician Assistant; Visit Provider Nurse Practitioner Family
DX: M51.16 Intervertebral disc disorders with radiculopathy, lumbar region (principal); M96.1 Postlaminectomy syndrome, not elsewhere classified; Z97.8 Presence of other specified devices; Z45.1 Encounter for adjustment and management of infusion pump
CPT/HCPCS: 62368; 99212; 99213; G0463

== ENCOUNTER 2024-05-01 13:56 | Outpatient (POV) | payer OTHER, SELFPAY ==
[2024-05-01 14:06] VITALS: BP 135/77; PULSE 76; RESP 18; O2SAT 97; BMI 44.9
--- NOTE | 2024-05-01 14:07 | EXP.PAIN.PRO ---
Procedure Date: 05/01/24 Time: 14:07 Anesthesiologist:: Yolie Pierre APRN Complications:: None Pre-procedure Diagnosis:: Degenerative disc disease of lumbar spine with lumbar radiculopathy symptoms, lumbar postlaminectomy syndrome Post-procedure Diagnosis:: same Indications for Procedure:: Patient is a pleasant 44-year-old female who presents today for intrathecal adjustment and reprogram. Today she rates her pain a 8 out of 10. Patient denies any new trauma or injury. She states that she really did not notice significant relief with her last increase. She is currently managed with bupivacaine 15 mg/mL with a daily dose of 3.512 mg/day. She denies any side effects from this medication. We did also send in a new medication of methocarbamol for her to take during the day however she states she really noticed no additional relief. She states that the tramadol we sent in a 50 mg twice a day had to get a prior authorization so she is literally just pick this up yesterday. Patient is also prescribed tizanidine 4 mg 2 tablets at bedtime and 1 tablet during the day.Patient does state that She ended up waking up with a rash all over and went to her primary care provider and that they are stating its fifth disease. her Amair has been reviewed and is appropriate. Physical Exam: General: Alert and oriented x3, no acute distress, pleasant and cooperative Lungs: Respirations even and unlabored, symmetrical chest expansion Eyes: PERRL Musculoskeletal: Flexion and extension of lumbar [spine] somewhat guarded secondary to pain, [antalgic gait noted] Neurological: Speech clear, no gross sensory deficit Skin: Diffuse rash noted on upper thighs and arms bilaterally Procedure Details:: Informed consent was obtained and the risk and benefits of the procedure were explained to the patient. Patient was taken to the procedure room where noninvasive monitoring was placed including noninvasive blood pressure cuff and pulse oximeter. Patient's pump was interrogated and was reprogrammed to bupivacaine 4.2144 mg/day. The patient tolerated the procedure well with no complications. Plan and Disposition:: Patient tolerated her intrathecal increase with no complications and was discharged neurologically intact. Patient is already scheduled for her intrathecal refill on May 14. Patient will return to clinic clinic for her intrathecal refill and reprogram. We will see the patient back in the clinic at the next intrathecal refill. Patient has been instructed to contact the clinic with any concerns before the next appointment. Dr. Jimenez has reviewed this note and agrees with this plan of care. This note was dictated using voice recognition software and make contain errors or omissions. -- It Is medically necessary for this patient to continue to have their intrathecal pump refilled at regular intervals. This patient had an intrathecal pain pump implanted after meeting criteria of chronic intractable pain for greater than 3 months and failing conservative treatments. Patient has committed and been compliant to the treatment plan and all planned follow up care. Since implantation of the intrathecal pain pump, the patient has had decreased pain and been more functional. Oral medications have been reduced including intake of oral opioids. Patient continues to do well with intrathecal therapy with decrease in pain symptoms and increase in functional status. Stopping intrathecal medications can lead to life threatening withdrawal, seizures, cardiac arrest, severe pain, and possible . Pumps that are not refilled at regular intervals can be damages and cause and need for replacement. We continually titrate dose and concentration to optimize pain relief and function. We are limited in concentration for certain drugs to safely deliver medications through the pump and stay within the recommendations from the Polyanalgesic Consensus Committee Guidelines. Depending on dose and concentration these pumps may need to be refilled sooner than 3 months as we titrate.
== END 2024-05-01 23:59 | disposition home or self-care (01) ==
PROVIDERS: PCP Physician Assistant; Visit Provider Nurse Practitioner Family
DX: M96.1 Postlaminectomy syndrome, not elsewhere classified (principal); M51.36 Other intervertebral disc degeneration, lumbar region
CPT/HCPCS: 62368; 99213; G0463

== ENCOUNTER 2024-05-07 14:00 | Outpatient (RCR) | payer OTHER, SELFPAY ==
--- NOTE | 2024-03-13 10:46 | HMH.PTOPEV ---
PT Outpatient Evaluation Rehab PT Outpatient Evaluation Start: 03/13/24 09:57 Freq: Status: Active Protocol: Document 03/13/24 09:57 ROSAS (Rec: 03/13/24 10:46 ROSAS [id number]) E-signed By Earl Chambers, PT Outpatient Therapy Subjective History Subjective History Patient is a 44 year old female presenting to outpatient PT with reports of chronic cervical spine pain. Symptoms of insidious onset starting approx 6 years ago with the most recent exacerbation starting approx 6 months ago. No recent imaging to report. Comorbidities include hx of B TKA, HTN, cholecystectomy and sapendectomy. New diagnosis of cancer in past 12 No months? Chief Complaint Pain,Spasms,Stiff,Paresthesia Symptom Type Ache,Numbness,Tingling Symptoms Relieved By Rest/Positioning,Prescription Meds,Activity Symptoms Aggravated By Standing,Physical Activity, Lifting Prior Functional Limitations None Current Functional Limitations Reaching,Lifting,Housework Level of pain today (0-10) 8 Pain scale - at its best (0-10) 5 Pain scale - at its worst (0-10) 9 Cervical Eval Palpation Cervical Muscles R Suboccipital,R SCM,R CT Junction,L CT Junction Cervical/Thoracic Palpation Findings Tenderness Flexibility Deficits Upper Trapezius Muscle Length (R) Severe Tightness,(L) Severe Tightness Pectoralis Minor Muscle Length (R) Moderate Tightness,(L) Moderate Tightness Passive Joint Mobility Cervical PIVM Dec: R OA L OA R AA L AA R C2/3 L C2/3 R C3/4 L C3/4 R C4/5 L C4/5 R C5/6 L C5/6 R C6/7 L C6/7 R C7/T1 L C7/T1 AROM Cervical Spine Extension Active Range of 40 Motion (degrees) Cervical Spine Flexion Active Range of 22 Motion (degrees) Cervical Spine Right Lateral Flexion 32 Active Range of Motion (degrees) Cervical Spine Left Lateral Flexion 34 Active Range of Motion (degrees) Cervical Spine Right Rotation Active 39 Range of Motion (degrees) Cervical Spine Left Rotation Active 62 Range of Motion (degrees) MMT Bilateral Deltoid (C5) 5 Normal Biceps Brachii Strength Grade 5 Normal Wrist Extension Strength Grade 5 Normal Triceps Brachii Strength Grade 5 Normal Wrist Flexion Strength Grade 5 Normal Extensor Pollicis Longus Strength Grade 5 Normal Finger Abduction Strength Grade 5 Normal Special Test C-Spine Foraminal Compression (Spurling) Negative Left,Negative Right Test C-Spine Foraminal Distraction Test Positive Neck Disability Index Neck Disability Index Section 1: Pain Intensity The pain is very severe at the moment Section 2: Personal Care (washing, I need some help but can dressing, etc.) manage most of my personal care Section 3: Lifting Pain prevents me lifting heavy weights off the floor, but I can manage Section 4: Reading I can't read as much as I want because of moderate pain in my neck Section 5: Headaches I have severe headaches, which come frequently Section 6: Concentration I have a lot of difficulty in concentrating when I want to Section 7: Work I can hardly do any work at all Section 8: Driving I can't drive my car as long as I want because of moderate pain in my Section 9: Sleeping My sleep is completely disturbed (5-7 hrs sleepless) Section 10: Recreation I can hardly do any recreation activities because of pain in my neck NDI Score 35 Outpatient Therapy Assessment Impairments Problems/Impairmments Palpation Tenderness,Impaired Range of Motion,Impaired Driving,Impaired Lifting, Impaired Household Care, Impaired Work Activities, Subjective C/O Pain Prognosis Rehab Potential Good Clinical Impression Consistent with Diagnosis Yes Short Term Goals Number of Weeks 2 Decrease Subjective C/O Pain Yes: 5/10 at worst Patient to be Ind w/ HEP Yes [employer] Goals Number of Weeks 4-6 Decreased Palpation Tenderness Yes: 1/4 Increase Range of Motion Yes: WNL Restore Ability to Lift Objects to Yes: 10 lb without difficulty Shoulder Level Restore Ability to Lift Objects Overhead Yes: Improve Ability For Household Care Yes Improve Tolerance to Work Activities Yes Improve Neck Disability Index Score Yes: <20 Decrease Subjective C/O Pain Yes: 2/10 at worst Outpatient Therapy Plan of Care Treatment Plan May Include Therapeutic Exercise Including Home Yes Exercise Program Manual Therapy Techniques Yes Neuromuscular Re-education Yes Therapeutic Activities to Return to Yes Previous Functional/Work Level ADL/Self Care Education Yes Mechanical Traction Yes Dry Needling Yes Thermal Modalities Yes Electrical Stimulation Yes Ultrasound/Phonophoresis Yes Iontophoresis Yes Massage Yes Manual Lymphatic Drainage Yes Eval/Re-Eval Yes Frequency Times per week 2 Duration Number of Weeks 4-6 Addendums This patient is a candidate for social No or vocational rehab? Patient/Guardian verbally acknowledges Yes understanding of treatment program and consents to further treatment? Patient/Guardian verbally acknowledges Yes understanding of diagnosis, prognosis and goals for treatment? Eval Complexity PT Charges 51908 - Moderate Complexity Shoulder/Elbow Eval Shoulder Objective Measurements Elbow Objective Measurements PHYSICIAN CERTIFICATION: I certify the specified therapy services for [place] are required, authorized, and reviewed every 30 days.
--- NOTE | 2024-04-09 11:44 | HMH.RHREAS ---
Rehab Reassessment Rehab OP Re-assessment Start: 03/13/24 09:57 Freq: Status: Active Protocol: Document 04/09/24 11:34 ROSAS (Rec: 04/09/24 11:43 ROSAS [id number]) E-signed By Earl Chambers, PT Neck Disability Index Neck Disability Index Section 1: Pain Intensity The pain is fairly severe at the moment Section 2: Personal Care (washing, It is painful to look after dressing, etc.) myself and I am slow and careful Section 3: Lifting Pain prevents me lifting heavy weights off the floor, but I can manage Section 4: Reading I can't read as much as I want because of moderate pain in my neck Section 5: Headaches I have moderate headaches, which come frequently Section 6: Concentration I have a fair degree of difficulty in concentrating when I want to Section 7: Work I cannot do my usual work Section 8: Driving I can't drive my car as long as I want because of moderate pain in my Section 9: Sleeping My sleep is greatly disturbed (3-5 hrs sleepless) Section 10: Recreation I am able to engage in a few of my usual recreation activities because NDI Score 28 Rehab Re-assessment Subjective Subjective Patient reports 40% improvement since start of care. Objective Objective Notes AROM: flx 38; ext 22; SBr 43; SBL 28; Rr 22; Rl 43 MMT: WNL BUE Pain: 7/10 today; 9/10 at worst over past week Neuro: persistent NT to BUE C 6/7 dermatomes. Assessment Progress Assessment Progressing as Expected Assessment Notes Patient would benefit from continuing with skilled PT interventions in order to address functional limitations with reaching/lifting activities. Patient goals met STG 2 Goals Not Met All others Revised Goals NA Plan Plan Continue with current POC. Frequency of Therapy 2x/week Duration of therapy 4 weeks Time and Billing Re-Eval Time 16 Re-Eval Billing Units 1 PHYSICIAN CERTIFICATION: I certify the specified therapy services for [place] [facility] Parr are required, authorized, and reviewed every 30 days.
== END 2024-05-07 14:05 | disposition home or self-care (01) ==
LOC: PT 14:00
PROVIDERS: Visit Provider Specialist
DX: M47.22 Other spondylosis with radiculopathy, cervical region (principal)
CPT/HCPCS: 20561; 97010; 97012; 97014; 97035; 97110; 97140; 97163; 97164; 97530; G0283

== ENCOUNTER 2024-05-14 08:20 | Day surgery (SDC) | payer OTHER, SELFPAY ==
[2024-05-14 08:33] VITALS: BP 138/89; PULSE 112; RESP 18; TEMP 37.1; O2SAT 100; BMI 43.2
--- NOTE | 2024-05-14 08:48 | EXP.PAIN.PRO ---
Procedure Date: 05/14/24 Time: 08:40 Anesthesiologist:: Denis Hare CRNA Complications:: None Pre-procedure Diagnosis:: Degenerative disc lumbar spine multilevels. Lumbar radiculopathy. Lumbar postlaminectomy syndrome. Lumbar facet arthropathy. Multilevel lumbar spondylosis. Post-procedure Diagnosis:: Same. Indications for Procedure:: Patient is a very pleasant
[2024-05-14 08:56] VITALS: BP 151/103; PULSE 125; RESP 20; O2SAT 97
--- NOTE | 2024-05-14 09:02 | P.PCN_ITS ---
Procedure Date: 05/14/24 Time: 08:50 Anesthesiologist:: Denis Hare CRNA Complications:: None Pre-procedure Diagnosis:: Degenerative disc lumbar spondylosis. Lumbar radiculopathy. Lumbar postlaminectomy syndrome. Post-procedure Diagnosis:: Same. Indications for Procedure:: Patient is a very pleasant 44-year-old female comes our clinic today for intrathecal pain pump interrogation refill. She is currently being managed with bupivacaine 15 mg/mL at a rate of 4.218 mg/day. Patient has been remaining vigilant on every 2-week follow-up appointments in the clinic for pump adjustments. Specifically, increases. She reports a 50% decline in her overall pain since starting the increases every 2 weeks. She is not reporting side effects or complications. She is not requesting any changes today. Patient is awake alert [place] x 3. In no acute distress. Flexion-extension lumbar spine somewhat guarded secondary to discomfort. Deep tendon reflexes upper lower extremities normal. Motor strength upper and lower extremities normal. There is no gross sensory deficit. Gait is normal. Patient rates her pain today 4/10. Procedure Details:: Details of the procedure explained to the patient. The patient taken procedure and placed in sitting position. The area of the pump was cleansed using chlorhexidine's cleansing solution. The pump was interrogated. The pump was accessed with ease using a 22-gauge inch and half needle. 6 mL of solution was withdrawn and discarded appropriate. The pump was then filled with 20 cc of solution containing bupivacaine 15 mg/mL. The rate will continue at 4.218 mg/day. Patient tolerated procedure without difficulty. No complications. Plan and Disposition:: Patient was discharged without incident.
[2024-05-14 09:03] VITALS: BP 151/103; PULSE 125; RESP 20; O2SAT 97
[2024-05-14 09:06] VITALS: BP 141/95; PULSE 106; RESP 18; O2SAT 100
== END 2024-05-14 09:06 | disposition home or self-care (01) ==
PROVIDERS: PCP Physician Assistant; Visit Provider Nurse Anesthetist, Certified Registered
DX: M51.36 Other intervertebral disc degeneration, lumbar region (principal); M54.16 Radiculopathy, lumbar region; M96.1 Postlaminectomy syndrome, not elsewhere classified
CPT/HCPCS: 95991

== ENCOUNTER 2024-05-28 09:09 | Outpatient (CLI) | payer OTHER, SELFPAY ==
--- NOTE | 2024-05-28 09:27 | MR_ITS ---
FINAL REPORT TECHNIQUE: Multiplanar MR without contrast CLINICAL HISTORY: Cervical spondylosis with radiculopathy. BILATERAL ARM PAIN, NUMBNESS AND TINGLING WORSE ON LEFT SIDE COMPARISON: None FINDINGS: Limited images of the posterior fossa are unremarkable. Alignment is normal. Cervical spinal cord shows normal signal and contour. C2-3: Unremarkable C3-4: A minimal annular bulge is present without evidence of canal stenosis. C4-5: A small annular bulge is present with mild central canal stenosis. C5-6: Moderate annular bulge is present with mild neural foraminal narrowing, and cord contact secondary to moderate central canal stenosis. C6-7: A small annular bulge is present with borderline central canal stenosis. C7-T1: Unremarkable IMPRESSION: Lower cervical degenerative change, most severe at the C5-6 level. Reviewed, Interpreted and Dictated by Bernadette Alfredo MD Transcribed by Ruby Li Authenticated and . [facility]
--- NOTE | 2024-05-28 09:32 | XR_ITS ---
FINAL REPORT CLINICAL HISTORY: pre MRI imaging. check position of pain pump FINDINGS: ABDOMEN AP AND OBLIQUE/CONE VIEWS The pain pump is in the right gluteal soft tissues. The superior portion of the pump is oriented 30 degrees anteriorly relative to the horizontal axis. The bowel gas pattern is unremarkable. IMPRESSION: Pain pump as detailed above. Reviewed, Interpreted and Dictated by Bernadette Alfredo MD Transcribed by Ro Ochoa Authenticated and [facility]
== END 2024-05-28 23:59 | disposition home or self-care (01) ==
LOC: RAD 09:10
PROVIDERS: PCP Physician Assistant; Visit Provider Specialist
DX: M47.22 Other spondylosis with radiculopathy, cervical region (principal); Z97.8 Presence of other specified devices
CPT/HCPCS: 72141; 74019

== ENCOUNTER 2024-05-29 10:37 | Outpatient (POV) | payer OTHER, SELFPAY ==
[2024-05-29 10:54] VITALS: BP 133/88; PULSE 103; RESP 18; O2SAT 100; BMI 44.8
--- NOTE | 2024-05-29 10:57 | EXP.PAIN.PRO ---
Procedure Date: 05/29/24 Time: 10:57 Anesthesiologist:: Yolie Pierre APRN Complications:: None Pre-procedure Diagnosis:: Degenerative disc disease of lumbar spine with lumbar radiculopathy symptoms, lumbar postlaminectomy syndrome Post-procedure Diagnosis:: Same Indications for Procedure:: Patient is a pleasant 44-year-old female who presents today for medication refill and intrathecal adjustment and reprogram. Today she rates her pain a 7 out of 10. She denies any new trauma or injury. She does state that she feels like with each of her increase and she is getting a little bit better and that feels like she can still use additional adjustments today. Patient is currently managed with bupivacaine 15 mg/mL with a daily dose of 4.218 mg/day. She denies any side effects from this medication. Patient is also managed with tramadol 50 mg twice a day and tizanidine 4 mg 2 tablets at bedtime and 1 tablet during the day. She denies any side effects from this medication and is requesting a refill. Her Amari is currently pending. Physical Exam: General: Alert and oriented x3, no acute distress, pleasant and cooperative Lungs: Respirations even and unlabored, symmetrical chest expansion Eyes: PERRL Musculoskeletal: Flexion and extension of lumbar [spine] somewhat guarded secondary to pain, [antalgic gait noted] Neurological: Speech clear, no gross sensory deficit Procedure Details:: Informed consent was obtained and the risk and benefits of the procedure were explained to the patient. Patient was taken to the procedure room where noninvasive monitoring was placed including noninvasive blood pressure cuff and pulse oximeter. Patient's pump was interrogated and was reprogrammed to bupivacaine 4.845 mg/day. The patient tolerated the procedure well with no complications. Plan and Disposition:: Patient tolerated her intrathecal increase with no complications and was discharged neurologically intact. I will refill the patient's tramadol and tizanidine and provide a 3-month supply of this medication. Patient will return to clinic for her next intrathecal refill and reprogram. We will see the patient back in the clinic at the next intrathecal refill. Patient has been instructed to contact the clinic with any concerns before the next appointment. Dr. Jimenez has reviewed this note and agrees with this plan of care. This note was dictated using voice recognition software and make contain errors or omissions. -- It Is medically necessary for this patient to continue to have their intrathecal pump refilled at regular intervals. This patient had an intrathecal pain pump implanted after meeting criteria of chronic intractable pain for greater than 3 months and failing conservative treatments. Patient has committed and been compliant to the treatment plan and all planned follow up care. Since implantation of the intrathecal pain pump, the patient has had decreased pain and been more functional. Oral medications have been reduced including intake of oral opioids. Patient continues to do well with intrathecal therapy with decrease in pain symptoms and increase in functional status. Stopping intrathecal medications can lead to life threatening withdrawal, seizures, cardiac arrest, severe pain, and possible . Pumps that are not refilled at regular intervals can be damages and cause and need for replacement. We continually titrate dose and concentration to optimize pain relief and function. We are limited in concentration for certain drugs to safely deliver medications through the pump and stay within the recommendations from the Polyanalgesic Consensus Committee Guidelines. Depending on dose and concentration these pumps may need to be refilled sooner than 3 months as we titrate.
== END 2024-05-29 23:59 | disposition home or self-care (01) ==
PROVIDERS: PCP Physician Assistant; Visit Provider Nurse Practitioner Family
DX: M51.16 Intervertebral disc disorders with radiculopathy, lumbar region (principal); M96.1 Postlaminectomy syndrome, not elsewhere classified
CPT/HCPCS: 62368; 99213; G0463

== ENCOUNTER 2024-06-25 07:48 | Day surgery (SDC) | payer OTHER, SELFPAY ==
[2024-06-25 08:15] VITALS: BP 118/87; PULSE 112; RESP 16; TEMP 37; O2SAT 100; BMI 42.4
[2024-06-25 08:42] VITALS: BP 112/80; PULSE 108; RESP 18; O2SAT 97
[2024-06-25 08:44] VITALS: BP 112/80; PULSE 108; RESP 18; O2SAT 97
--- NOTE | 2024-06-25 08:50 | P.PCN_ITS ---
Procedure Date: 06/25/24 Time: 08:30 Anesthesiologist:: Denis Hare CRNA Complications:: None Pre-procedure Diagnosis:: Degenerative disc lumbar spine multilevels. Lumbar radiculopathy. Post-procedure Diagnosis:: Same. Indications for Procedure:: Patient is a very pleasant 44-year-old female comes our clinic today for intrathecal pain pump interrogation and refill. She is currently being managed with bupivacaine 15 mg/mL at a rate of 4.845 mg/day. She is doing very well at the current settings. She not requesting any changes. She does not reporting side effects or complications. Patient is awake alert [place] x 3. No acute distress. Flexion-extension lumbar spine somewhat guarded secondary to pain. Deep tendon reflexes upper and lower extremities normal. Motor strength upper lower extremities normal. There is no gross sensory deficit. Gait is normal. Procedure Details:: Details of the procedure explained the patient. The patient taken procedure and placed in sitting position. The area over the pumps cleansed using chlorhexidine as a cleansing solution. The pump was interrogated. The pump was accessed with ease using a 22-gauge inch and half needle. 6.5 mL of solution was withdrawn discarded appropriate. The pump was then filled with 20 cc of solution containing bupivacaine 15 mg/mL. Patient tolerated procedure without difficulty. They will be no change in pump rate. Plan and Disposition:: Patient was discharged without incident.
[2024-06-25 08:53] VITALS: BP 125/87; PULSE 99; RESP 16; O2SAT 100
== END 2024-06-25 08:53 | disposition home or self-care (01) ==
PROVIDERS: PCP Physician Assistant; Visit Provider Nurse Anesthetist, Certified Registered
DX: M51.36 Other intervertebral disc degeneration, lumbar region (principal)
CPT/HCPCS: 95991

== ENCOUNTER 2024-07-04 08:54 | Outpatient (CLI) | payer OTHER, SELFPAY ==
[2024-07-04 10:30] LABS: Amphetamine/Metha Screen,Urine Negative ng/ml (<1000); Barbiturates Screen,Urine Negative ng/ml (<200)
[2024-07-04 10:31] LABS: Benzodiazepines Screen,Urine Negative ng/ml (<200)
[2024-07-04 10:32] LABS: Cannabinoid Screen,Urine Negative ng/ml (<50); Cocaine Screen,Urine Negative ng/ml (<300)
[2024-07-04 10:33] LABS: Methadone Screen,Urine Negative ng/ml (<300); Opiate Screen,Urine Negative ng/ml (<300)
[2024-07-04 10:34] LABS: Phencyclidine Screen,Urine Negative ng/ml (<25)
[2024-07-09 15:10] LABS: Opiates Negative (Cutoff=100)
== END 2024-07-04 23:59 | disposition home or self-care (01) ==
LOC: LAB 08:55
PROVIDERS: PCP Physician Assistant; Visit Provider Anesthesiology
DX: Z79.891 Long term (current) use of opiate analgesic (principal)
CPT/HCPCS: 36415; 80307; 80361; 80365; G0480

== ENCOUNTER 2024-07-23 10:24 | Day surgery (SDC) | payer OTHER, SELFPAY ==
[2024-07-23 10:40] VITALS: BP 153/99; PULSE 113; RESP 16; TEMP 36.4; O2SAT 99; BMI 41.5
[2024-07-23 11:08] VITALS: BP 142/97; PULSE 86; RESP 18; O2SAT 99
--- NOTE | 2024-07-23 11:28 | P.PCN_ITS ---
Procedure Date: 07/23/24 Time: 11:00 Anesthesiologist:: Denis Hare CRNA Complications:: None Pre-procedure Diagnosis:: Degenerative disc lumbar spine multilevels. Lumbar radiculopathy Post-procedure Diagnosis:: Same. Indications for Procedure:: Patient is a very pleasant 44-year-old female comes our clinic today for intrathecal pain pump interrogation refill. She is currently being managed with bupivacaine 15 mg/mL at a rate of 4.845 mg/day. She is doing very well the current settings. She is not reporting any side effects or complications. She not requesting any changes. Patient is awake alert [place] x 3. In no acute distress. Flexion-extension lumbar spine somewhat guarded secondary to pain. Deep tendon reflexes upper and lower extremities normal. Motor strength upper lower extremities normal. There is no gross sensory deficit. Gait is normal. Procedure Details:: Details of the procedure were explained to the patient. The patient taken the procedure room placed in the sitting position. The area over the pump was cleaned using chlorhexidine as a cleansing solution. The pump was interrogated. The pump was accessed with ease using a 22-gauge 2-1/2 inch needle. 10 mL of solution was withdrawn discarded appropriate. The pump was then filled with 20 cc of solution containing bupivacaine 15 mg/mL. Patient tolerated procedure without difficulty. There are no complications. Plan and Disposition:: Patient was discharged without incident.
== END 2024-07-23 11:08 | disposition home or self-care (01) ==
PROVIDERS: PCP Physician Assistant; Visit Provider Nurse Anesthetist, Certified Registered
DX: M51.16 Intervertebral disc disorders with radiculopathy, lumbar region (principal)
CPT/HCPCS: 95991

== ENCOUNTER 2024-08-12 15:37 | Outpatient (CLI) | payer OTHER, SELFPAY ==
[2024-08-12 18:46] LABS: Basophils # 0.1 K/mm3 (0-0.2); Basophils % 0.7 % (0.1-2.0); Eosinophils # 0.3 K/mm3 (0.0-0.4); Eosinophils % 2.9 % (0.1-12.0); Hematocrit 41.2 % (37.0-47.0); Hemoglobin 14.2 g/dL (12.2-16.2); Lymphocytes % 31.1 % (10-50); Mean Corpuscular HGB Conc 34.6 g/dL (31.8-35.4); Mean Corpuscular Hemoglobin 30.5 pg (27.0-31.2); Mean Corpuscular Volume 88.4 fl (81-99); Mean Platelet Volume 9.8 fl (7.4-10.4); Monocytes # 0.5 K/mm3 (0.1-1.0); Neutrophils # 5.8 K/mm3 (1.8-7.8); Neutrophils % 60.3 % (37.0-80.0); Platelet Count 346 K/mm3 (142-424); Red Blood Count 4.67 M/mm3 (4.20-5.40); Red Cell Distribution Width 13.1 % (11.5-17.5); White Blood Count 9.7 K/mm3 (4.8-10.8)
[2024-08-12 19:19] LABS: Albumin/Globulin Ratio 1.8 (1.1-1.8); Estimated Glomerular Filt Rate 79 ml/min (>60); GFR (African American) 95 ML/MIN (>60); Globulin 2.6 g/dL (1.3-3.2)
[2024-08-12 19:29] LABS: Total Iron Binding Capacity 308 ug/dL (265-497)
[2024-08-12 19:30] LABS: Direct LDL Cholesterol 87.43 mg/dL (100-129)
[2024-08-12 19:37] LABS: 25-OH Vitamin D, Total 31.1 ng/mL (30-100)
[2024-08-12 19:48] LABS: Alanine Aminotransferase 16 U/L (12-78); Albumin Level 4.6 g/dl (3.5-5.0); Alkaline Phosphatase 81 U/L (38-126); Anion Gap 11.3 mEq/L (5-15); Aspartate Amino Transferase 21 U/L (14-36); Bilirubin,Total 0.7 mg/dl (0.2-1.3); Blood Urea Nitrogen 19 mg/dl (7-17); Calcium 9.8 mg/dl (8.4-10.2); Carbon Dioxide 25 mmol/L (22.0-30.0); Chloride 107 mmol/L (98-107); Chol/HDL Ratio 2.7 (1-3.5); Cholesterol 193 mg/dl (140-200); Glucose 89 mg/dl (74-100); HDL Cholesterol 71 mg/dl (40-60); Potassium 4.3 mmoL/L (3.5-5.1); Sodium 139 mmol/L (136-145); Total Protein,Serum 7.2 g/dl (6.3-8.2); Triglycerides 112 mg/dl (30-150); VLDL Cholesterol 22 mg/dL (0-40)
[2024-08-12 19:51] LABS: Iron 57 ug/dL (37-170); Thyroid Stimulating Hormone 2.07 uIU/mL (0.465-4.68)
[2024-08-12 19:55] LABS: Ferritin 54.2 ng/ml (6.24-137)
[2024-08-12 20:55] LABS: Vitamin B12 302 pg/mL (239-931)
[2024-08-12 20:56] LABS: Folate > 20.00 ng/mL
== END 2024-08-12 23:59 | disposition home or self-care (01) ==
LOC: LAB.DROPOF 08-13 09:32
PROVIDERS: PCP Student in an Organized Health Care Education/Training Program; Visit Provider Student in an Organized Health Care Education/Training Program
DX: I15.0 Renovascular hypertension (principal); E53.8 Deficiency of other specified B group vitamins; E61.1 Iron deficiency; E55.9 Vitamin D deficiency, unspecified; Z13.1 Encounter for screening for diabetes mellitus; Z13.29 Encounter for screening for other suspected endocrine disorder; G47.09 Other insomnia; Z68.42 Body mass index [BMI] 45.0-49.9, adult
CPT/HCPCS: 80050; 80053; 80061; 82306; 82607; 82728; 82746; 83036; 83540; 83550; 84443; 85025

== ENCOUNTER 2024-08-27 09:38 | Day surgery (SDC) | payer OTHER, SELFPAY ==
[2024-08-27 09:50] VITALS: BP 150/93; PULSE 103; RESP 16; TEMP 37.4; O2SAT 100; BMI 41.5
[2024-08-27 10:04] VITALS: BP 180/92; PULSE 113; RESP 18; O2SAT 94
[2024-08-27 10:08] VITALS: BP 180/92; PULSE 113; RESP 20; O2SAT 94
[2024-08-27 10:20] VITALS: BP 144/86; PULSE 98; RESP 16; O2SAT 99
--- NOTE | 2024-08-27 10:22 | P.PCN_ITS ---
Procedure Date: 08/27/24 Time: 09:20 Anesthesiologist:: Denis aHre CRNA Complications:: None Pre-procedure Diagnosis:: Degenerative disc lumbar spine multilevels. Lumbar radiculopathy. Lumbar postlaminectomy syndrome Post-procedure Diagnosis:: Same. Indications for Procedure:: Patient is a very pleasant 44-year-old female who comes our clinic today for intrathecal pain pump interrogation and refill. Patient currently being managed with bupivacaine 15 mg/mL at a rate of 4.845 mg/day. She is doing very well with her current settings. She is not requesting any changes. She does not reporting side effects or complications. She rates her pain 4/10. Patient is awake alert [place] x 3. No acute distress. Flexion-extension lumbar spine guarded secondary to pain. Deep tendon reflexes upper lower extremities normal. Motor strength upper and lower extremities normal. There is no gross sensory deficit. Gait is normal. Procedure Details:: Details of the procedure explained to the patient. The patient taken procedure and placed in sitting position. The over the pumps cleansed using chlorhexidine as a cleansing solution. The pump was interrogated. The pump was accessed with ease using a 22-gauge inch and half needle. 8 mL of solution was withdrawn discarded appropriate. The pump was then filled with 20 cc of solution containing bupivacaine 15 mg/mL. Patient tolerated procedure without difficulty. There are no complications. Plan and Disposition:: Patient was discharged without incident.
== END 2024-08-27 10:20 | disposition home or self-care (01) ==
PROVIDERS: PCP Student in an Organized Health Care Education/Training Program; Visit Provider Nurse Anesthetist, Certified Registered
DX: M51.16 Intervertebral disc disorders with radiculopathy, lumbar region (principal); M96.1 Postlaminectomy syndrome, not elsewhere classified
CPT/HCPCS: 95991

== ENCOUNTER 2024-08-29 10:18 | Outpatient (CLI) | payer OTHER, SELFPAY ==
--- NOTE | 2024-08-29 10:18 | US_ITS ---
PROCEDURE INFORMATION: Exam: US Retroperitoneal, Complete, Kidneys and Bladder Exam date and time: 08/29/2024 10:22 AM Age: 44 years old Clinical indication: Abnormal findings; Abnormal lab test; Other: HTN; Additional info: I15.0 - renovascular hypertension TECHNIQUE: Imaging protocol: Real-time ultrasound of the retroperitoneum with image documentation. Complete exam focused on the bilateral kidneys and urinary bladder. Total images: 49 COMPARISON: US CA RENAL ARTERY DUPLEX 01/30/2024 8:11 AM FINDINGS: Right kidney: Right kidney measures 11.1 x 5.0 x 5.9 cm. Left kidney: Left kidney measures 10.3 x 6.2 x 7.3 cm. Calcification noted within the left kidney without obstructive uropathy. Urinary bladder: Unremarkable. Spleen: Spleen measures 9.5 cm. IMPRESSION: Calcification noted within the left kidney without obstructive uropathy.
== END 2024-08-29 23:59 | disposition home or self-care (01) ==
LOC: RAD 10:18
PROVIDERS: PCP Student in an Organized Health Care Education/Training Program; Visit Provider Nurse Practitioner
DX: I15.0 Renovascular hypertension (principal); R06.02 Shortness of breath; R06.00 Dyspnea, unspecified; R07.9 Chest pain, unspecified
CPT/HCPCS: 76770; 93976

== ENCOUNTER 2024-09-02 07:13 | Outpatient (CLI) | payer OTHER, SELFPAY ==
--- NOTE | 2024-09-02 07:13 | CT_ITS ---
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 A noncontrast coronary calcium scan was performed. A CT attenuation threshold of 130 Hounsfield units (HU) was used for the detection of calcium in contiguous voxels of 1 sq mm in area to be counted as individual lesions. Bolus tracking in the ascending aorta with a threshold of 180 HU was performed. Immediately afterwards, ECG synchronized cardiac CT was then performed from the cardiac base to apex using retrospective gating with ECG tube current modulation. A total of 85 mL of Isovue 370 mg/mL contrast medium was administered at 5 mL/sec followed by a saline flush using a biphasic injection protocol. A tube voltage of 120 KVp was used. The patient received the following medications prior to the cardiac CT. 75 mg of oral metoprolol 15 mg of oral ivabradine 0.8 mg of sublingual nitroglycerin The average heart rate at the time of acquisition was 55 bpm and regular. Image Reconstruction Transaxial images were reconstructed at 0.67 mm slide thickness. Data was reviewed interactively on an advanced workstation capable of 2 and 3-dimensional displays in all conventional reconstruction formats, including multiplanar reformations, maximum intensity projections, curved multiplanar reformations, and volume rendered reconstructions. When applicable, selected routine images describing the relevant coronary anatomy and pathology were saved and sent to PACS. Complications None Technical Quality Overall image quality was good. Coronary artery opacification was adequate. Total DLP (Dose-Length Product) is 1105.3 mGy-cm. The reported value represents the total of one or more individual components during the CT acquisition of this date and at this time, and as such, the same value may appear in more than one CT report depending on the interpreting/reporting physicians. COMPARISON None FINDINGS CT Coronary Calcium Scoring LMA (Left Main Artery) = 0 LAD (Left Anterior Descending) = 107 LCX (Left Coronary Circumflex) = 0 RCA (Right Coronary Artery) = 0 Total Calcium Score = 107 using the AJ-130 method. The observed calcium score of 107 is at 99th percentile for subjects of the same age, sex, and race/ethnicity. The interpretation of the calcium heart score is based on the following continuum*: 0 = no calcified plaque detected (risk of coronary artery disease is very low ??? less than 5%) 1-10 = calcium detected in extremely minimal levels (risk of coronary diseases is still low ??? less than 10%) 11-100 = mild levels of plaque detected with certainty (mild or minimal narrowing of heart arteries is likely) 101-400 = definite,at least moderate levels of plaque detected (relatively high risk of a heart attack within 3-5 years) >401-999 = extensive levels of plaque detected (high risk of heart attack, high levels of vascular disease are present, high likelihood of at least one significant coronary narrowing) *The calcium heart score quantifies the burden of coronary calcification/plaque in the coronary arteries. The calcium heart score is not able to evaluate the presence or burden of non-calcified (i.e. soft) plaque. There is no identifiable calcification in the aortic valve, mitral annulus or mitral valve, pericardium, or myocardium. Coronary CT Angiography The coronary arterial system is right dominant. Quantitative Stenosis Grading: Left Main (LM): The left main originates normally from the left sinus of Valsalva. The LM bifurcates into the left anterior descending artery and left circumflex artery. The LM is patent with no evidence of atherosclerosis. Left Anterior Descending (LAD) and Diagonal Branches: The LAD gives off 2 diagonal branch(es). There is mixed calcified/noncalcified plaque in the proximal LAD segment, with up to 30-50% luminal stenosis. There is no evidence of LAD-myocardial bridge. Left Circumflex (LCX) and Obtuse Marginals (OM): The LCX gives off 1 Obtuse Marginal (OM) branch(es). The LCX and its branches are patent with no evidence of atherosclerosis. Right Coronary Artery (RCA): The RCA originates normally from the right sinus of Valsalva. The RCA gives off a posterior descending artery (PDA) and posterolateral (PL) branches. The RCA and its branches are patent with no evidence of atherosclerosis. Non-Coronary Cardiac Findings: Analysis of the left ventricular (LV) structure and function was performed after 3-D reconstruction of the LV from axial images, with user-corrected automatic contouring for assessment of LV volumes and user-defined reconstruction from oblique planes for measurement of 3-D cardiac structure and function. -The left ventricle systolic function is normal. -There is no left atrial appendage filling defect. Two right pulmonary veins and two left pulmonary veins drain normally into the left atrium. -No pericardial thickening or calcification. -Central and branch pulmonary arteries in the [id number] are unremarkable. -Thoracic aorta within the visualized thoracic aortic-branches in the [id number] is unremarkable. Extracardiac Structures No significant extra-cardiac findings. Note, however, that this study is focused on the cardiac findings. IMPRESSION -Presence of coronary calcification with an Agatston score = 107 using the AJ-130 method. -The observed calcium score of 107 is at 99th percentile for subjects of the same age, sex, and race/ethnicity. -There is mild, nonobstructive coronary disease in the proximal LAD segment, with no evidence of significant flow-limiting atherosclerosis of the coronary arteries. -CAD-RADS 2. Management recommendations per ACC/AHA guidelines*, as clinically appropriate. *Recommendations: CAD RADS 0: Reassurance. Consider non-atherosclerotic causes of chest pain. CAD RADS 1: Consider non-atherosclerotic causes of chest pain. Consider preventive therapy and risk factor modification. CAD RADS 2: Consider non-atherosclerotic causes of chest pain. Consider preventive therapy and risk factor modification, particularly for patients with nonobstructive plaque in multiple segments. CAD RADS 3: Consider further functional testing. Consider symptom-guided anti-ischemic and preventive pharmacotherapy as well as risk factor modification per published guideline statements. CAD RADS 4A: Consider further functional testing or invasive coronary angiography with revascularization per published guideline statements. Consider symptom-guided anti-ischemic and preventive pharmacotherapy as well as risk factor modification per published guideline statements. CAD RADS 4B: Invasive coronary angiography recommended with revascularization per published guideline statements. Consider symptom-guided anti-ischemic and preventive pharmacotherapy as well as risk factor modification per published guideline statements. CAD RADS 5: Consider invasive angiography and/or viability assessment with revascularization per published guideline statements. Consider symptom-guided anti-ischemic and preventive pharmacotherapy as well as risk factor modification per published guideline statements. CRITICAL RESULT None COMMUNICATION Per this written report The coronary and cardiac findings of this CCTA were reviewed, reported, and signed by Stuart Stephenson MD (Director Utilization Management) Conclusion Electronically signed by : Carol Stephenson MD 09/03/2024 12:30:45
[2024-09-02 07:28] VITALS: BMI 43.7
[2024-09-02 07:34] VITALS: BP 131/80; PULSE 97; RESP 18; O2SAT 100
[2024-09-02] MEDS: METOPROLOL TARTRATE 50MG TABLET PO (07:47)
[2024-09-02] MEDS: METOPROLOL TARTRATE 25MG TABLET 25 MG (07:47)
[2024-09-02] MEDS: IVABRADINE HCL 7.5MG TABLET PO (07:47)
[2024-09-02] MEDS: ONDANSETRON 4MG/2ML VIAL 4 MG IV (08:33)
[2024-09-02 08:43] VITALS: BP 137/93; PULSE 65; RESP 16; O2SAT 99
[2024-09-02] MEDS: NITROGLYCERIN 0.4MG SL TABLET SL (08:43)
[2024-09-02 08:46] VITALS: BP 114/72; PULSE 63; RESP 16; O2SAT 99
[2024-09-02 08:50] VITALS: BP 108/67; PULSE 56; RESP 16; O2SAT 99
[2024-09-02] MEDS: 0.9 % SODIUM CHLORIDE 50 ML VIAL IV (08:54)
[2024-09-02] MEDS: SODIUM CHLORIDE 0.9% 10ML SYR (RAD ONLY) 10 ML IV (08:54)
[2024-09-02] MEDS: IOPAMIDOL-370 (76%);100ML BOTTLE 85 ML IV (08:54)
[2024-09-02 08:56] VITALS: BP 119/64; PULSE 66; RESP 16; O2SAT 98
== END 2024-09-02 09:01 | disposition home or self-care (01) ==
PROVIDERS: PCP Student in an Organized Health Care Education/Training Program; Visit Provider Nurse Practitioner
DX: R07.89 Other chest pain (principal); R06.02 Shortness of breath; R06.00 Dyspnea, unspecified
CPT/HCPCS: 75574; J2405; Q9967

== ENCOUNTER 2024-09-09 09:48 | Outpatient (POV) | payer OTHER, SELFPAY ==
--- NOTE | 2024-09-09 10:28 | A.OFFVIS_ITS ---
[facility] Disclaimer: The information contained in this section may have been updated after the patient was seen, as this information can be updated by other users. Medical History Spondylosis of cervical spine with radiculopathy Documented cervical spondylosis with impingement involving C7 root noticed on previous MRI in 2021. Reported worsening of neck pain associated with radicular signs and symptoms. Cervical spine MRI 05/2024: Multilevel cervical spondylosis more severe at C5- C6 Chest pain SOB (shortness of breath) on exertion Neck pain Chronic neck pain with acute exacerbation, radicular signs and symptoms. Mastalgia Ankylosing spondylitis Hematemesis Fibromyalgia B12 deficiency Fracture of greater tuberosity of humerus Hip pain Knee pain Mood disturbance Iron metabolism disorder Prior bariatric surgery, sublingual iron supplementation, ferritin level currently 66 but with history of RLS, PLMD, recent GI bleed numbers need to be considerably higher and sleep medicine suggested repeat iron transfusion to increase numbers Anxiety Iron deficiency anemia Restless leg syndrome Doing well on Horizant and iron p.o. Insomnia No CAMILLA Cannot sleep since Klonopin discontinued Did not tolerate Remeron or seroquel well Neuropathic pain Back pain Hypertension Morbid obesity Barretts esophagus Osteoarthritis of left knee Atypical chest pain Bladder spasms Surgical History History of esophagogastroduodenoscopy (EGD) Status post gastric bypass for obesity History of tonsillectomy History of hysterectomy including cervix 2017 Hx of tubal ligation Hx of gastric bypass History of appendectomy History of cholecystectomy History of bilateral knee replacement Family History Other Cancer Coronary artery disease Diabetes Hypertension Social History Smoking Status: Never smoker second hand exposure: No alcohol intake: never substance use type: denies use current occupational status: unemployed Travel in the last 8 weeks: None household members: significant other and children housing: house lives independently: Yes marital status: life partner education level: high school service: No retirement: No current occupation: [employer] current occupational exposures/hazards: No caffeine: Yes physical activity: walking frequency: 5-6 times per week do you feel safe at home: Yes victim of physical abuse: No victim of emotional abuse: No victim of sexual abuse: No would you like helpful sources: No PM Subjective & Objective Subjective Subjective:: Patient is a pleasant 44-year-old female who presents today for worsening pain. Today she rates her pain an 8 out of 10. Patient states she has pain all across her low back and bilateral hips. Patient describes it as an aching, throbbing sensation that does interfere with her ability perform activities of daily living such as cooking and cleaning. Patient does state the pain is worse with prolonged positioning such as sitting or laying down. She states that she frequently has to flip [id number] between positions when she is trying to sleep due to the worsening hip pain. She states that she would like to try additional injection therapy that she did get really good relief with the SI injections however the last time we tried months ago that her insurance denied it due to having the pump. Patient is currently managed with bupivacaine 15 mg/mL with a daily dose of 4.845 mg/day. She denies any side effects from this medication. She is also managed with tramadol 50 mg twice a day and tizanidine 4 mg 2 tablets at bedtime and 1 tablet during the day. She denies any side effects from this medication. Patient does state that her insurance still denied the tramadol medication and so she cannot get this however would like refills on her tizanidine. Patient does also make mention that she does still have numbness into her right leg that she did see the neurologist regarding and that they did talk about the possible testing however stated that she recommended talking to our office about getting this ordered. Her Amari has been reviewed and is appropriate. Review of Systems: General: No recent weight changes, no fever, no sleep disturbances Respiratory: No cough, no shortness of air, no recurring pulmonary infections Cardiovascular/peripheral vascular: No chest pain, no palpitations, no edema, no shortness of breath Gastrointestinal: No new onset incontinence, normal bowel movements reported Genitourinary: No new onset incontinence Musculoskeletal: Low back pain, bilateral hip pain, right leg numbness Psychiatric: [Normal mood/affect] Neurological: [Denies weakness in extremities], [denies balance issues] Pain at rest (0-10 scale): 8 Objective Objective:: Physical Exam: General: Alert and oriented x3, no acute distress, pleasant and cooperative Lungs: Respirations even and unlabored, symmetrical chest expansion Eyes: PERRL Musculoskeletal: Flexion and extension of lumbar [spine] somewhat guarded secondary to pain, [antalgic gait noted] point tenderness along bilateral SIs with positive bilateral Carmelina's, Arianna's, Gaenslen's, compression and distraction exam Neurological: Speech clear, no gross sensory deficit Has patient had previous pain injection?: No Conservative treatment options previously tried: Home exercise plan Length of treatment: Longer than 12 weeks Meds Home Medications and Allergies Home Medications ?Medication ?Instructions ?Recorded ?Confirmed ?Type cholecalciferol (vitamin D3) 50 25 mcg PO DAILY Supplement 11/24/21 09/02/24 History mcg (2,000 unit) capsule linaclotide 290 mcg capsule 290 mcg PO DAILY constipation 01/24/23 09/02/24 History (Linzess) adalimumab 40 mg/0.8 mL 40 mg SQ QOW inflammation 06/26/23 09/02/24 History subcutaneous pen kit (Humira Pen) levocetirizine 5 mg tablet 5 mg PO DAILY Allergy Symptoms 06/26/23 09/02/24 History mecobalamin (vitamin B12) 10,000 10,000 mcg SQ MONTHLY Supplement 07/05/23 09/02/24 History mcg solution for injection bupivacaine HCl 0.5 % (5 mg/mL) 2.3988 mg intradermal DAILY 10/05/23 09/02/24 History injection solution gabapentin enacarbil 600 mg 600 mg PO DAILY 10/05/23 09/02/24 History tablet,extended release (Horizant ER) ipratropium bromide 21 mcg (0.03 1 spray intranasal HS 10/05/23 09/02/24 History %) nasal spray pantoprazole 40 mg tablet,delayed 40 mg PO BID #60 tabs 10/05/23 09/02/24 Rx release (Protonix) ferrous sulfate 325 mg (65 mg 325 mg PO BID 12/26/23 09/02/24 History iron) tablet montelukast 10 mg tablet 10 mg PO DAILY 12/26/23 09/02/24 History folic acid 1 mg tablet 1 mg PO DAILY 02/20/24 09/02/24 History azelastine 137 mcg (0.1 %) nasal 137 mcg intranasal DIRECTED 04/23/24 09/02/24 History spray carvedilol 25 mg tablet (Coreg) 25 mg PO BID #180 tabs 04/24/24 09/02/24 Rx tizanidine 4 mg tablet 8 mg (2 x 4 mg) PO HS muscle 05/29/24 09/02/24 Rx spasms #60 tabs tramadol 50 mg tablet 50 mg PO BID PRN pain #60 tabs 05/29/24 09/02/24 Rx doxepin 6 mg tablet 6 mg PO HS PRN sleep #30 tabs 08/12/24 09/02/24 Rx hydrochlorothiazide 25 mg tablet See Rx Instructions .Route 08/12/24 09/02/24 Rx .COMPLEX #90 tabs spironolactone 25 mg tablet 25 mg PO DAILY #30 tabs 08/12/24 09/02/24 Rx losartan 50 mg tablet 50 mg PO DAILY #90 tabs 08/19/24 09/02/24 Rx New Prescriptions to Start Prescriptions: Allergies Allergy/AdvReac Type Severity Reaction Status Date / Time cefaclor [CEFACLOR] Allergy Unknown Unknown Verified 09/02/24 08:09 allergy reaction Penicillins [PENICILLINS] Allergy Unknown Unknown Verified 09/02/24 08:09 allergy reaction Cephalosporins Allergy Unknown Verified 09/02/24 08:09 allergy reaction trazodone AdvReac Severe Hallucinati Verified 09/02/24 08:09 ng amlodipine AdvReac Mild edema Verified 09/02/24 08:09 Assessment and Plan *Assessment and plan (1) Bilateral sacroiliitis: Status: Acute Category: Medical Code(s): M46.1 - Sacroiliitis, not elsewhere classified Plan Patient is experiencing worsening pain in her bilateral hips and low back with limited range of motion. Patient did have point tenderness along her bilateral SIs and a positive bilateral Carmelina's, Arianna's, Gaenslen's, compression and distraction exam. I did discuss with the patient that I do believe she would benefit from bilateral SI injections. Patient has had these in the past with her last ones around October 04, 2022. Patient would on average get at least 70 to 80% improvement however how long they would last would very. Patient does state that these injections did improve her overall function and did help the pain become more manageable. Patient has tried and failed conservative therapy including continued at home stretching exercise for longer than 12 weeks. Patient has had this pain longstanding for multiple years. Patient does state that in the last time that we did try and get these injections improved that her insurance denied it due to having the pain pump. I did personal financial counselor the patient that the pump helps overall back pain however the catheter is at the T8-T9 level and there is no way for the pump medication to get down to her sacroiliac joint space. Patient does states she would like to proceed forward with these injections if possible. I will refill the patient's tizanidine and provide a 6- month supply of this medication. Patient is doing well overall on her pump currently. We will schedule the patient for bilateral SI injections under fluoroscopy. I will also order the patient an EMG of her right leg due to the continued numbness. Patient has been instructed to contact the clinic with any concerns before the next appointment. Dr. Jimenez has reviewed this note and agrees with this plan of care. This note was dictated using voice recognition software and make contain errors or omissions. All injections are used with Lidocaine or Bupivacaine and Depo Medrol.
[2024-09-09 11:36] VITALS: BP 155/80; PULSE 88; RESP 16; O2SAT 100; BMI 41.5
== END 2024-09-09 23:59 | disposition home or self-care (01) ==
PROVIDERS: PCP Student in an Organized Health Care Education/Training Program; Visit Provider Nurse Practitioner Family
DX: M46.1 Sacroiliitis, not elsewhere classified (principal); Z73.89 Other problems related to life management difficulty; Z79.899 Other long term (current) drug therapy
CPT/HCPCS: 99212; G0463

== ENCOUNTER 2024-09-23 10:40 | Emergency (ER) | payer OTHER, SELFPAY ==
[2024-09-23] VITALS (12 sets, daily range): BP systolic 119–176; BP diastolic 82–103; PULSE 86–127; RESP 16–20; TEMP 36.4–37.1; O2SAT 98–100; BMI 40.7
--- NOTE | 2024-09-23 11:20 | MR_ITS ---
FINAL REPORT CLINICAL HISTORY: right sided leg, buttox and genital numbness COMPARISON: 05/28/2024 FINDINGS: Multi planar MR imaging was obtained of the cervical spine. There is abnormal decreased signal throughout the cervical discs. The vertebrae are of normal height. There is mild reversal of the cervical lordosis. The cervical cord demonstrates normal signal and configuration. C2-C3: There is no evidence of significant disc bulge or protrusion. There is no significant facet hypertrophy. C3-C4: A mild annular bulge is present with mild right neural foraminal narrowing. C4-C5: A mild annular bulge is present with a broad-based midline disc protrusion and mild canal stenosis. C5-C6: There is a moderate annular bulge present with lobular protruding components. There is moderate cervical spinal stenosis, and mild right, moderate left neural foraminal narrowing. C6-C7: There is a mild annular bulge with endplate hypertrophy. C7-T1: There is no evidence of significant disc bulge or protrusion. There is no significant facet hypertrophy. IMPRESSION: Multilevel cervical degenerative changes present as described above, most severe at the C5-6 level. Given differences in technique overall no significant changes noted since the prior MRI of May. Reviewed, Interpreted and Dictated by José Luis Muñiz MD Transcribed by Ruby Li Authenticated and [facility]
--- NOTE | 2024-09-23 11:20 | MR_ITS ---
FINAL REPORT CLINICAL HISTORY: right sided leg, buttox and genital numbness COMPARISON: 10/05/2022 FINDINGS: Multiplanar MR imaging of the thoracic spine was performed without contrast. On the sagittal T2-weighted images, there is stable mild increased signal at the superior endplate of T11 which is probably degenerative. There is no evidence of fracture. The vertebral alignment is normal. No bony mass is identified. The thoracic spinal cord has an unremarkable appearance without evidence of mass, edema or syrinx. There is no evidence of canal stenosis or cord compression. On the axial images, no focal disc protrusion is identified. There is no evidence of significant canal stenosis. No paraspinous soft tissue abnormality is seen. IMPRESSION: Unremarkable thoracic spine without evidence of acute bony abnormality, disc protrusion or canal stenosis. Reviewed, Interpreted and Dictated by José Luis Muñiz MD Transcribed by Jerri Geiger Authenticated and [facility]
--- NOTE | 2024-09-23 11:23 | MR_ITS ---
FINAL REPORT CLINICAL HISTORY: right leg numbness since 7 this morning FINDINGS: Multiplanar MR imaging of the lumbar spine was performed without contrast. On the sagittal T2-weighted images, decreased signal is seen throughout. The vertebral alignment is normal. There is no evidence of fracture. No bony mass is identified. The conus is seen at approximately the L1 level and has an unremarkable appearance. T12-L1: Unremarkable. L1-2: Mild diffuse disc bulge with small midline and left paracentral disc protrusion. There is mild central canal stenosis. L2-3: Mild diffuse disc bulge with mild bilateral neuroforaminal narrowing. L3-4: Mild diffuse disc bulge with mild bilateral neuroforaminal narrowing. L4-5: There is no significant canal stenosis or neural foraminal narrowing. L5-S1: There is no significant canal stenosis or neural foraminal narrowing. IMPRESSION: Mild left paracentral disc protrusion at L1-2 with canal stenosis. Mild disc bulges L2-3 and L3-4 with mild bilateral neuroforaminal narrowing. Reviewed, Interpreted and Dictated by José Luis Muñiz MD Transcribed by Lesvia Nation Authenticated and . [facility]
--- NOTE | 2024-09-23 11:24 | PC.NURSE ---
pt taken to radiology for xrays and MRI.
--- NOTE | 2024-09-23 11:27 | XR_ITS ---
PROCEDURE INFORMATION: Exam: XR Abdomen, MR Screening Exam date and time: 09/23/2024 11:29 AM Age: 44 years old Clinical indication: Device placement; Non-vascular device; Other: Placement of pain pump; Prior surgery; Surgery date: 6+ months; Additional info: Pain pump eval for mri TECHNIQUE: Imaging protocol: Radiologic exam of the abdomen and pelvis. Exam was performed for MR screening. Views: 2 views. COMPARISON: CT ABDOMEN WO CON 07/07/2023 10:04 AM FINDINGS: Gastrointestinal tract: Normal. No bowel dilation. Bones/joints: Unremarkable. Radiopaque device or foreign body: There is an implantable infusion system in the right lower gluteal region. No hardware specifications from the patient's device are provided IMPRESSION: There is an implantable infusion system in the right lower gluteal region. Due to incomplete information available regarding the glass technician's hardware specifications and/or MRI parameters for the patient's indwelling device, I cannot approve or deny the patient's eligibility for MR imaging.
[2024-09-23 11:32] LABS: Microscopic, Urine URINE MICROSCOPIC (MICROSCOPIC)
[2024-09-23 11:34] LABS: Appearance,Urine CLEAR (Clear); Bilirubin,Urine Negative (Negative); Blood, Urine Negative (Negative); Color,Urine YELLOW (Yellow); Glucose,Urine (UA) Negative (Negative); Ketones,Urine Negative (Negative); Leukocyte Esterase,Urine Negative (Negative); Nitrate,Urine Negative (Negative); Protein,Urine Negative (Negative); Specific Gravity, Urine <= 1.005 (1.005-1.030); Urobilinogen,Urine 0.2 EU/dl (0.2)
--- NOTE | 2024-09-23 11:34 | HMH.EDGENADL ---
Discharge Plan Disposition Patient Disposition: Xfer Short-Term Hosp Chief Complaint: Extremity Problem,Nontraumatic Prescriptions Prescriptions: No Action cholecalciferol (vitamin D3) 50 mcg (2,000 unit) capsule 25 mcg PO DAILY montelukast 10 mg tablet 10 mg PO DAILY folic acid 1 mg tablet 1 mg PO DAILY azelastine 137 mcg (0.1 %) spray,non-aerosol 137 mcg intranasal DIRECTED Linzess 290 mcg capsule 290 mcg PO DAILY mecobalamin (vitamin B12) 10,000 mcg recon soln 10,000 mcg SQ MONTHLY Humira Pen 40 mg/0.8 mL pen injector kit 40 mg SQ QOW levocetirizine 5 mg tablet 5 mg PO DAILY ferrous sulfate 325 mg (65 mg iron) tablet 325 mg PO BID carvedilol [Coreg] 25 mg tablet 25 mg PO BID Qty: 180 1RF Rx Instructions: give with food (meal/snack) hydrochlorothiazide 25 mg tablet See Rx Instructions .ROUTE .COMPLEX Qty: 90 0RF Dose Instruction: TAKE 1 TABLET BY MOUTH EVERY MORNING Rx Instructions: TAKE 1 TABLET BY MOUTH EVERY MORNING spironolactone 25 mg tablet 25 mg PO DAILY Qty: 30 2RF doxepin 6 mg tablet 6 mg PO HS PRN (Reason: sleep) Qty: 30 2RF losartan 50 mg tablet 50 mg PO DAILY Qty: 90 3RF ipratropium bromide 21 mcg (0.03 %) spray,non-aerosol 1 spray INTRANASAL HS Horizant 600 mg tablet extended release 600 mg PO DAILY bupivacaine HCl 0.5 % (5 mg/mL) Solution 2.3988 mg intradermal DAILY pantoprazole [Protonix] 40 mg tablet,delayed release (DR/EC) 40 mg PO BID Qty: 60 0RF tramadol 50 mg tablet 50 mg PO BID PRN (Reason: pain) Qty: 60 2RF tizanidine 4 mg tablet 8 mg PO HS Qty: 60 5RF Referrals Follow up/Referrals: Mimi Magaña PA [Primary Care Provider] - See instructions Clinical Impressions Clinical Impression: Cauda equina compression Print Language Print Language: [place] Discharge ED Provider: Philip Harris General Adult HPI <Yolie Leos DO - Last Filed: 09/23/24 15:08> General Chief complaint: Extremity Problem,Nontraumatic Stated complaint: right leg numb Time Seen by Provider: 09/23/24 10:49 Mode of Arrival: Ambulatory Source of Information: Patient Limitations: No Limitations Description of Symptoms (Recalled from ER Triage Doc. by RN): pt c/o L hip, leg, groin, buttock, and vaginal numbness and tingling. pt states this has been ongoing x3h. pt states the pain is 8/10. pt reports she has a hx of this and is currently schedule for an EMG. pt states she is concerned because it does not typically last this long. pt has a hx of and degenerative disk disease. pt has a pain pump that has bupivacaine only. History of Present Illness HPI narrative: This patient is a 44-year-old female with a history of chronic spine issues with bupivacaine pain pump in place, obesity, hypertension, hyperlipidemia, GERD, vitamin B12 deficiency, restless leg syndrome presenting to the emergency department for evaluation with concern for numbness and tingling. Patient states that she chronically deals with intermittent numbness and tingling, especially of her upper extremity for which she follows with neurology and then intermittently of her right lower extremity. She has a lumbar spine pain pump in place with bupivacaine. She notes that when she was having the intermittent episodes of right leg tingling, she asked her pain management doctor if it could be related and she was told that it is not related to her pain pump. Today, she woke up at 7:00 this morning, tried to stand and bed, and states that she fell to the ground because her right leg is like a cinderblock. She notes that she cannot feel it at all and it has been persistent since 7:00 this morning when she woke up. Nothing seems to make it better or worse. She states that it goes from her right hip/buttock into her groin, vagina, and right lower leg. She is still able to walk but she has a hard time with it because of the heaviness in her right leg. No urinary or fecal incontinence. No recent falls or injuries. No other concerns noted. No recent changes in her pain pump which has been present for 3 years according to the patient. Related Data Home Medications ?Medication ?Instructions ?Recorded ?Confirmed cholecalciferol (vitamin D3) 50 25 mcg PO DAILY Supplement 11/24/21 09/09/24 mcg (2,000 unit) capsule linaclotide 290 mcg capsule 290 mcg PO DAILY constipation 01/24/23 09/09/24 (Linzess) adalimumab 40 mg/0.8 mL 40 mg SQ QOW inflammation 06/26/23 09/09/24 subcutaneous pen kit (Humira Pen) levocetirizine 5 mg tablet 5 mg PO DAILY Allergy Symptoms 06/26/23 09/09/24 mecobalamin (vitamin B12) 10,000 10,000 mcg SQ MONTHLY Supplement 07/05/23 09/09/24 mcg solution for injection bupivacaine HCl 0.5 % (5 mg/mL) 2.3988 mg intradermal DAILY 10/05/23 09/09/24 injection solution gabapentin enacarbil 600 mg 600 mg PO DAILY 10/05/23 09/09/24 tablet,extended release (Horizant ER) ipratropium bromide 21 mcg (0.03 1 spray intranasal HS 10/05/23 09/09/24 %) nasal spray ferrous sulfate 325 mg (65 mg 325 mg PO BID 12/26/23 09/09/24 iron) tablet montelukast 10 mg tablet 10 mg PO DAILY 12/26/23 09/09/24 folic acid 1 mg tablet 1 mg PO DAILY 02/20/24 09/09/24 azelastine 137 mcg (0.1 %) nasal 137 mcg intranasal DIRECTED 04/23/24 09/09/24 spray Previous Rx's ?Medication ?Instructions ?Recorded pantoprazole 40 mg tablet,delayed 40 mg PO BID #60 tabs 10/05/23 release (Protonix) carvedilol 25 mg tablet (Coreg) 25 mg PO BID #180 tabs 04/24/24 tramadol 50 mg tablet 50 mg PO BID PRN pain #60 tabs 05/29/24 doxepin 6 mg tablet 6 mg PO HS PRN sleep #30 tabs 08/12/24 hydrochlorothiazide 25 mg tablet See Rx Instructions .Route 08/12/24 .COMPLEX #90 tabs spironolactone 25 mg tablet 25 mg PO DAILY #30 tabs 08/12/24 losartan 50 mg tablet 50 mg PO DAILY #90 tabs 08/19/24 tizanidine 4 mg tablet 8 mg (2 x 4 mg) PO HS muscle 09/09/24 spasms #60 tabs Allergies Allergy/AdvReac Type Severity Reaction Status Date / Time cefaclor (CEFACLOR) Allergy Unknown Unknown Verified 09/23/24 11:04 allergy reaction Penicillins (PENICILLINS) Allergy Unknown Unknown Verified 09/23/24 11:04 allergy reaction Cephalosporins Allergy Unknown Verified 09/23/24 11:04 allergy reaction trazodone AdvReac Severe Hallucinati Verified 09/23/24 11:04 ng amlodipine AdvReac Mild edema Verified 09/23/24 11:04 [facility] <Yolie Leos DO - Last Filed: 09/23/24 15:08> [facility] Disclaimer: The information contained in this section may have been updated after the patient was seen, as this information can be updated by other users. Medical History Spondylosis of cervical spine with radiculopathy Chest pain SOB (shortness of breath) on exertion Neck pain Mastalgia Ankylosing spondylitis Hematemesis Fibromyalgia B12 deficiency Fracture of greater tuberosity of humerus Hip pain Knee pain Mood disturbance Iron metabolism disorder Anxiety Iron deficiency anemia Restless leg syndrome Insomnia Neuropathic pain Back pain Hypertension Morbid obesity Barretts esophagus Osteoarthritis of left knee Atypical chest pain Bladder spasms Surgical History History of esophagogastroduodenoscopy (EGD) Status post gastric bypass for obesity History of tonsillectomy History of hysterectomy including cervix Hx of tubal ligation Hx of gastric bypass History of appendectomy History of cholecystectomy History of bilateral knee replacement Family History Other Cancer Coronary artery disease Diabetes Hypertension Social History Smoking Status: Current every day smoker second hand exposure: No alcohol intake: never substance use type: denies use current occupational status: other Travel in the last 8 weeks: None household members: significant other and children housing: house lives independently: Yes marital status: life partner education level: high school service: No assisted: No current occupation: [employer] current occupational exposures/hazards: No caffeine: Yes physical activity: walking frequency: 5-6 times per week do you feel safe at home: Yes victim of physical abuse: No victim of emotional abuse: No victim of sexual abuse: No would you like helpful sources: No Other Medical History Have you received the Flu Vaccine for this season: Yes Have you received the Pneumonia Vaccine: Yes <Yolie Leos, - Last Filed: 09/23/24 15:08> ROS Obtained: Yes All systems reviewed & no additional complaints except as documented Physical Exam <Yolie Leos - Last Filed: 09/23/24 15:08> General General appearance: alert, in no apparent distress and obese Head Head exam: atraumatic and normocephalic Eye Eye exam: Present normal appearance, PERRL and EOMI ENT ENT exam: Present normal exam, normal oropharynx, mucous membranes moist and normal external ear exam Neck Neck exam: Present normal inspection, full ROM and trachea midline; Absent tenderness Chest Chest inspection: Present normal inspection and symmetric chest wall rise; Absent tenderness Respiratory Respiratory exam: Present normal lung sounds bilaterally; Absent respiratory distress, wheezes, stridor or accessory muscle use Cardiovascular Cardiovascular exam: Present regular rate and normal rhythm Abdominal Exam Abdominal exam: Present soft; Absent distention, tenderness or guarding Extremities Exam Extremities exam: Present normal inspection, full ROM and normal capillary refill; Absent tenderness or edema Back Exam Back exam: Present normal inspection and full ROM; Absent tenderness Neurological Exam Neurological exam: Present alert, oriented X3, CN II-XII intact, motor sensory deficit (Subjective decrease in sensation of the groin region, buttock, right lower extremity but she is able to sense light touch. No significant motor deficits.) and other (Rectal tone intact) Psychiatric Psychiatric exam: Present normal affect and normal mood Skin Skin exam: Present warm and dry Medical Decision Making <Yolie Leos, - Last Filed: 09/23/24 15:08> Medical Records Medical records reviewed: Yes I reviewed the patient's medical records. Screening: Per USPSTF and CDC recommendations, given the prevalence of disease in our region, it is our hospital?s policy to screen for HIV and viral Hepatitis for all patients aged 18 and over and those with ongoing risk factors. Amari Inquiry Pt receiving controlled substance: No Vital Signs: 09/23/24 10:57 09/23/24 11:01 09/23/24 11:33 Temperature 97.5 F L Temperature Source Oral Pulse Rate 101 H 103 H Pulse Rate [Left] 127 H Respiratory Rate 16 18 Blood Pressure 139/97 H 127/85 Blood Pressure [Right Arm] 176/101 H Blood Pressure Mean 105 99 Blood Pressure Mean [Right Arm] 126 Blood Pressure Source [Right Arm] Automatic Cuff Blood Pressure Position [Right Arm] Sitting 02 Sat by Pulse Oximetry 99 99 99 Oxygen Delivery Method Room Air 09/23/24 14:35 09/23/24 14:36 09/23/24 15:04 Temperature Temperature Source Pulse Rate 98 H 86 93 H Pulse Rate [Left] Respiratory Rate Blood Pressure 119/100 H 119/100 H 145/87 H Blood Pressure [Right Arm] Blood Pressure Mean 104 107 Blood Pressure Mean [Right Arm] Blood Pressure Source [Right Arm] Blood Pressure Position [Right Arm] 02 Sat by Pulse Oximetry 99 99 99 Oxygen Delivery Method 09/23/24 15:31 09/23/24 16:01 09/23/24 16:31 Temperature Temperature Source Pulse Rate 87 94 H 91 H Pulse Rate [Left] Respiratory Rate Blood Pressure 127/96 H 131/103 H 141/82 H Blood Pressure [Right Arm] Blood Pressure Mean 103 111 101 Blood Pressure Mean [Right Arm] Blood Pressure Source [Right Arm] Blood Pressure Position [Right Arm] 02 Sat by Pulse Oximetry 99 98 98 Oxygen Delivery Method 09/23/24 17:01 Temperature Temperature Source Pulse Rate 91 H Pulse Rate [Left] Respiratory Rate Blood Pressure 135/87 Blood Pressure [Right Arm] Blood Pressure Mean Blood Pressure Mean [Right Arm] Blood Pressure Source [Right Arm] Blood Pressure Position [Right Arm] 02 Sat by Pulse Oximetry 100 Oxygen Delivery Method Lab Data Lab results reviewed: Yes I reviewed the patient's lab results. Lab Results 09/23/24 11:25: WBC 7.9, RBC 4.99, Hgb 14.9, Hct 43.3, MCV 86.8, MCH 29.9, MCHC 34.4, RDW 13.1, Plt Count 311, MPV 9.1, Neut % (Auto) 60.5, Lymph % (Auto) 31.5, Jay % (Auto) 5.2, Eos % (Auto) 2.2, Baso % (Auto) 0.6, Neut # (Auto) 4.8, Lymph # (Auto) 2.5, Jay # (Auto) 0.4, Eos # (Auto) 0.2, Baso # (Auto) 0.1, Sodium 139, Potassium 3.6, Chloride 104, Carbon Dioxide 23, Anion Gap 15.6 H, BUN 12, Creatinine 0.80, Estimated Creat Clear 161, Estimated GFR 79, Est GFR ( Amer) 95, Glucose 102 H, Calcium 9.8, Magnesium 2.1, Total Bilirubin 1.2, AST 28, ALT 19, Alkaline Phosphatase 69, Total Protein 8.4 H, Albumin 5.1 H, Globulin 3.3 H, Albumin/Globulin Ratio 1.5, Serum HCG, Qual Negative, Urine Color Yellow, Urine Appearance Clear, Urine pH 6.0, Ur Specific [place] <= 1.005, Urine Protein Negative, Urine Glucose (UA) Negative, Urine Ketones Negative, Urine Blood Negative, Urine Nitrate Negative, Urine Bilirubin Negative, Urine Urobilinogen 0.2, Ur Leukocyte Esterase Negative, Urine RBC None, Urine WBC Occasional, Ur Squamous Epith Cells 3-5, HIV 1&2 Antibody Rapid Nonreactive 09/23/24 11:25 09/23/24 11:25 Orders (Tests/Meds): ED MEDICATIONS Discontinued Medications Generic Name Dose Route Start Last Admin Trade Name Freq PRN Reason Stop Dose Admin Ketorolac Tromethamine 15 mg 09/23/24 11:39 09/23/24 11:43 Ketorolac 30mg/Ml Vial IV 09/23/24 11:40 15 mg ONCE ONE Administration Ketorolac Tromethamine 15 mg 09/23/24 14:17 09/23/24 14:22 Ketorolac 30mg/Ml Vial IV 09/23/24 14:18 15 mg ONCE ONE Administration ORDERS Category Date Time Status Pain Management Consult [Consult to Pain Management] [ Cons 09/23/24 14:11 Ordered CONS] Stat XR abdomen min 2V Stat Exams 09/23/24 11:27 Completed Complete Blood Count Auto Diff Stat Lab 09/23/24 11:25 Completed Comprehensive Metabolic Panel Stat Lab 09/23/24 11:25 Completed HIV (1&2) Antibody Rapid Stat Lab 09/23/24 11:25 Completed Hep C Ab with Reflex to RNA Stat Lab 09/23/24 11:25 Received MAG [Magnesium] Stat Lab 09/23/24 11:25 Completed Serum [HCG Qualitative, Serum] Stat Lab 09/23/24 11:25 Completed UA [Urinalysis and Microscopic] Stat Lab 09/23/24 11:25 Completed Medical Decision Narrative: In summary, this patient is a 44-year-old female presenting to the Emergency Department for evaluation of numbness and tingling of her groin, vagina, buttock, right lower extremity. Differential diagnoses considered include but are not limited to lumbar radiculopathy, pain pump malfunction, cauda equina syndrome. Ruling out the most morbid conditions drove assessment. It should be noted patient's history includes chronic spine issues and obesity which are not at goal therapy. This complicates all aspects of care by increasing patient's risk for morbidity. I reviewed patient's past medical records and noted previous pain management evaluations, neurology evaluations for patient's chronic issues with pain pump in place. On exam, the patient is lying in bed in no acute distress. She has subjective decrease sensation of the right lower extremity, vagina, buttock. She was able to sense me touching, however. Rectal tone is intact. She has 1 mL on postvoid bladder scan. Overall, exam is very reassuring but given her extensive spine history, I do feel that obtaining emergent MRIs will be beneficial to rule out spinal cord compression, as it could be early still. Especially given her reports of saddle anesthesia, though rectal tone is preserved and she does not have any urinary retention. workup included basic lab evaluation as well as MRIs without contrast of the cervical, thoracic, and lumbar spine which were ordered emergently. Patient was given IV Toradol for symptomatic improvement. Patient was sent to MRI for MRI C/T/L-spine. These reads are pending at my time of signout to oncoming provider. On reassessment, she has continued numbness and tingling of her groin and right lower extremity, but otherwise exam remains the same without significant change. I have pain management, and assess the patient and they said that she did recently have an increase in her bupivacaine pain pump, so it could be related to this. They will assess to see if it needs to be turned down. Ultimately, patient care signed out to the oncoming provider, Dr. Harris. <Philip Harris MD - Last Filed: 09/23/24 18:56> Vital Signs: 09/23/24 10:57 09/23/24 11:01 09/23/24 11:33 Temperature 97.5 F L Temperature Source Oral Pulse Rate 101 H 103 H Pulse Rate [Left] 127 H Respiratory Rate 16 18 Blood Pressure 139/97 H 127/85 Blood Pressure [Right Arm] 176/101 H Blood Pressure Mean 105 99 Blood Pressure Mean [Right Arm] 126 Blood Pressure Source [Right Arm] Automatic Cuff Blood Pressure Position [Right Arm] Sitting 02 Sat by Pulse Oximetry 99 99 99 Oxygen Delivery Method Room Air 09/23/24 14:35 09/23/24 14:36 09/23/24 15:04 Temperature Temperature Source Pulse Rate 98 H 86 93 H Pulse Rate [Left] Respiratory Rate Blood Pressure 119/100 H 119/100 H 145/87 H Blood Pressure [Right Arm] Blood Pressure Mean 104 107 Blood Pressure Mean [Right Arm] Blood Pressure Source [Right Arm] Blood Pressure Position [Right Arm] 02 Sat by Pulse Oximetry 99 99 99 Oxygen Delivery Method 09/23/24 15:31 09/23/24 16:01 09/23/24 16:31 Temperature Temperature Source Pulse Rate 87 94 H 91 H Pulse Rate [Left] Respiratory Rate Blood Pressure 127/96 H 131/103 H 141/82 H Blood Pressure [Right Arm] Blood Pressure Mean 103 111 101 Blood Pressure Mean [Right Arm] Blood Pressure Source [Right Arm] Blood Pressure Position [Right Arm] 02 Sat by Pulse Oximetry 99 98 98 Oxygen Delivery Method 09/23/24 17:01 Temperature Temperature Source Pulse Rate 91 H Pulse Rate [Left] Respiratory Rate Blood Pressure 135/87 Blood Pressure [Right Arm] Blood Pressure Mean Blood Pressure Mean [Right Arm] Blood Pressure Source [Right Arm] Blood Pressure Position [Right Arm] 02 Sat by Pulse Oximetry 100 Oxygen Delivery Method Lab Data Lab Results 09/23/24 11:25: WBC 7.9, RBC 4.99, Hgb 14.9, Hct 43.3, MCV 86.8, MCH 29.9, MCHC 34.4, RDW 13.1, Plt Count 311, MPV 9.1, Neut % (Auto) 60.5, Lymph % (Auto) 31.5, Jay % (Auto) 5.2, Eos % (Auto) 2.2, Baso % (Auto) 0.6, Neut # (Auto) 4.8, Lymph # (Auto) 2.5, Jay # (Auto) 0.4, Eos # (Auto) 0.2, Baso # (Auto) 0.1, Sodium 139, Potassium 3.6, Chloride 104, Carbon Dioxide 23, Anion Gap 15.6 H, BUN 12, Creatinine 0.80, Estimated Creat Clear 161, Estimated GFR 79, Est GFR ( Amer) 95, Glucose 102 H, Calcium 9.8, Magnesium 2.1, Total Bilirubin 1.2, AST 28, ALT 19, Alkaline Phosphatase 69, Total Protein 8.4 H, Albumin 5.1 H, Globulin 3.3 H, Albumin/Globulin Ratio 1.5, Serum HCG, Qual Negative, Urine Color Yellow, Urine Appearance Clear, Urine pH 6.0, Ur Specific [place] <= 1.005, Urine Protein Negative, Urine Glucose (UA) Negative, Urine Ketones Negative, Urine Blood Negative, Urine Nitrate Negative, Urine Bilirubin Negative, Urine Urobilinogen 0.2, Ur Leukocyte Esterase Negative, Urine RBC None, Urine WBC Occasional, Ur Squamous Epith Cells 3-5, HIV 1&2 Antibody Rapid Nonreactive Orders (Tests/Meds): ED MEDICATIONS Discontinued Medications Generic Name Dose Route Start Last Admin Trade Name Freq PRN Reason Stop Dose Admin Ketorolac Tromethamine 15 mg 09/23/24 11:39 09/23/24 11:43 Ketorolac 30mg/Ml Vial IV 09/23/24 11:40 15 mg ONCE ONE Administration Ketorolac Tromethamine 15 mg 09/23/24 14:17 09/23/24 14:22 Ketorolac 30mg/Ml Vial IV 09/23/24 14:18 15 mg ONCE ONE Administration ORDERS Category Date Time Status Pain Management Consult [Consult to Pain Management] [ Cons 09/23/24 14:11 Ordered CONS] Stat XR abdomen min 2V Stat Exams 09/23/24 11:27 Completed Complete Blood Count Auto Diff Stat Lab 09/23/24 11:25 Completed Comprehensive Metabolic Panel Stat Lab 09/23/24 11:25 Completed HIV (1&2) Antibody Rapid Stat Lab 09/23/24 11:25 Completed Hep C Ab with Reflex to RNA Stat Lab 09/23/24 11:25 Received MAG [Magnesium] Stat Lab 09/23/24 11:25 Completed Serum [HCG Qualitative, Serum] Stat Lab 09/23/24 11:25 Completed UA [Urinalysis and Microscopic] Stat Lab 09/23/24 11:25 Completed Medical Decision Narrative: In summary, this patient is a 44-year-old female presenting to the Emergency Department for evaluation of numbness and tingling of her groin, vagina, buttock, right lower extremity. Differential diagnoses considered include but are not limited to lumbar radiculopathy, pain pump malfunction, cauda equina syndrome. Ruling out the most morbid conditions drove assessment. It should be noted patient's history includes chronic spine issues and obesity which are not at goal therapy. This complicates all aspects of care by increasing patient's risk for morbidity. I reviewed patient's past medical records and noted previous pain management evaluations, neurology evaluations for patient's chronic issues with pain pump in place. On exam, the patient is lying in bed in no acute distress. She has subjective decrease sensation of the right lower extremity, vagina, buttock. She was able to sense me touching, however. Rectal tone is intact. She has 1 mL on postvoid bladder scan. Overall, exam is very reassuring but given her extensive spine history, I do feel that obtaining emergent MRIs will be beneficial to rule out spinal cord compression, as it could be early still. Especially given her reports of saddle anesthesia, though rectal tone is preserved and she does not have any urinary retention. workup included basic lab evaluation as well as MRIs without contrast of the cervical, thoracic, and lumbar spine which were ordered emergently. Patient was given IV Toradol for symptomatic improvement. Patient was sent to MRI for MRI C/T/L-spine. These reads are pending at my time of signout to oncoming provider. On reassessment, she has continued numbness and tingling of her groin and right lower extremity, but otherwise exam remains the same without significant change. I have pain management, and assess the patient and they said that she did recently have an increase in her bupivacaine pain pump, so it could be related to this. They will assess to see if it needs to be turned down. Ultimately, patient care signed out to the oncoming provider, Dr. Harris. Kimberly: I assumed primary responsibility for this patient after signout from previous physician. During my evaluation, patient has equal strength, but still subjective perineal numbness. 2 episodes of incontinence where patient does not remember urinating here in the emergency department. Images finally received with reads about 7 hours after having been performed. L1-L2 disc herniation with central retropulsion, but no meaningful compression on the cauda equina. Given symptoms and concern for dynamic exam, neurosurgery contacted at [facility]. Because patient high risk for clinical decompensation if discharged, deemed appropriate for transfer and inpatient admission. Results were relayed to patient who voiced understanding and patient was agreeable to transfer, inpatient admission, and management. Patient was graciously accepted and transferred to [facility] for further definitive management, under Dr. Morfin and Eron. Critical Care <Yolie Leos DO - Last Filed: 09/23/24 15:08> Critical Care Time Critical Care Time: No <Philip Harris MD - Last Filed: 09/23/24 18:56> Critical Care Time Critical Care Time: Yes (neuro) Attestation: On 09/23/24, the high probability of a clinically significant, sudden or life threatening deterioration of the following system(s) required my full and direct attention, intervention and personal management. The time I documented below is in addition to time spent performing reported procedures but includes the following listed in this critical care notation. Total Time Total Critical Care Time: 45
--- NOTE | 2024-09-23 11:34 | PC.NURSE ---
post void 1ml in bladder
--- NOTE | 2024-09-23 11:37 | PC.NURSE ---
PT TRANSPORTED TO RADIOLOGY
[2024-09-23] MEDS: KETOROLAC 30MG/ML VIAL 15 MG IV ×2 (11:43→14:22)
[2024-09-23 12:10] LABS: Magnesium 2.1 mg/dl (1.6-2.3)
[2024-09-23 12:11] LABS: HCG Qualitative, Serum Negative (Negative)
[2024-09-23 12:13] LABS: Basophils # 0.1 K/mm3 (0-0.2); Basophils % 0.6 % (0.1-2.0); Eosinophils # 0.2 K/mm3 (0.0-0.4); Eosinophils % 2.2 % (0.1-12.0); Hematocrit 43.3 % (37.0-47.0); Hemoglobin 14.9 g/dL (12.2-16.2); Lymphocytes # 2.5 K/mm3 (0.7-4.5); Lymphocytes % 31.5 % (10-50); Mean Corpuscular HGB Conc 34.4 g/dL (31.8-35.4); Mean Corpuscular Hemoglobin 29.9 pg (27.0-31.2); Mean Corpuscular Volume 86.8 fl (81-99); Mean Platelet Volume 9.1 fl (7.4-10.4); Monocytes # 0.4 K/mm3 (0.1-1.0); Monocytes % 5.2 % (1.7-9.3); Neutrophils # 4.8 K/mm3 (1.8-7.8); Neutrophils % 60.5 % (37.0-80.0); Platelet Count 311 K/mm3 (142-424); Red Blood Count 4.99 M/mm3 (4.20-5.40); Red Cell Distribution Width 13.1 % (11.5-17.5); White Blood Count 7.9 K/mm3 (4.8-10.8)
[2024-09-23 12:23] LABS: WBC,Urine Occasional #/hpf (0-3)
[2024-09-23 13:01] LABS: Albumin Level 5.1 g/dl (3.5-5.0); Chloride 104 mmol/L (98-107); Potassium 3.6 mmoL/L (3.5-5.1); Sodium 139 mmol/L (136-145)
[2024-09-23 13:04] LABS: Alanine Aminotransferase 19 U/L (12-78); Albumin/Globulin Ratio 1.5 (1.1-1.8); Alkaline Phosphatase 69 U/L (38-126); Anion Gap 15.6 mEq/L (5-15); Aspartate Amino Transferase 28 U/L (14-36); Bilirubin,Total 1.2 mg/dl (0.2-1.3); Blood Urea Nitrogen 12 mg/dl (7-17); Calcium 9.8 mg/dl (8.4-10.2); Carbon Dioxide 23 mmol/L (22.0-30.0); Creatinine Clearance Estimated 161 mL/min (50-200); Estimated Glomerular Filt Rate 79 ml/min (>60); GFR (African American) 95 ML/MIN (>60); Globulin 3.3 g/dL (1.3-3.2); Glucose 102 mg/dl (74-100); Total Protein,Serum 8.4 g/dl (6.3-8.2)
--- NOTE | 2024-09-23 13:33 | PC.NURSE ---
pt still in MRI
--- NOTE | 2024-09-23 14:06 | PC.NURSE ---
Called [facility] and had MRI's power shared
[2024-09-23 14:27] LABS: HIV (1&2) Antibody Rapid NONREACTIVE (NONREACTIVE)
--- NOTE | 2024-09-23 14:53 | PC.NURSE ---
I called pain management to let them know that the pt is back in her room per Dr. Leos
--- NOTE | 2024-09-23 15:34 | PC.NURSE ---
To ER to interrogate pts pain pump after pt having MRI. While in ER, ER provider Dr. Leos asked me about if pt needed a decreased in pump medication r/t numbness would pt need to make an appt. Called stephany Gross to speak with her about this states to decrease pt pump by 20% and have pt f/u later in the week. Pt pump settings changed and pt given f/u appt for Monday at 9 am, pt agreeable to this plan. Pt was scheduled for an appt tomorrow for PPR, told pt we would reschedule this appt as alarm date is now , pt agreeable.
--- NOTE | 2024-09-23 18:00 | PC.NURSE ---
I called and spoke with radiology. They are going to try to push through the MRI reads
--- NOTE | 2024-09-23 18:14 | PC.NURSE ---
Called [facility] per Dr Harris to speak with Neuro spine about this pt. Dr Morfin was connected with Dr Harris at this time
--- NOTE | 2024-09-23 19:35 | PC.NURSE ---
Pt resting comfortably in bed. Pt states she has progressive numbness that started in right foot that has now progressed to pelvis. Skin pink warm and dry REsp full and easy Pt has had 2 episodes on urinary incontinence. Speech clear and appropriate. Pt awaiting dispo
--- NOTE | 2024-09-23 20:24 | PC.NURSE ---
Pt to via ambulance IV in right arm
[2024-09-24 08:21] LABS: HCV Ab Non Reactive (Non Reactive)
== END 2024-09-23 20:27 | disposition short-term general hospital (02) ==
PROVIDERS: Emergency Medicine; Emergency Provider Emergency Medicine; PCP Student in an Organized Health Care Education/Training Program
DX: G83.4 Cauda equina syndrome (principal); R20.0 Anesthesia of skin
CPT/HCPCS: 72141; 72146; 72148; 74019; 80053; 81001; 83735; 84703; 85025; 86803; 87389; 96374; 96375; 99291; J1885

== ENCOUNTER 2024-10-17 13:53 | Emergency (ER) | payer OTHER, SELFPAY ==
[2024-10-17 13:53] VITALS: BP 136/98; PULSE 91; RESP 18; TEMP 36.8; O2SAT 98; BMI 46.5
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
--- NOTE | 2024-10-17 15:28 | PC.NURSE ---
FSBS at this time is 97.
[2024-10-17] MEDS: HYDROMORPHONE 2MG/ML SYRINGE 1 MG IV (15:30)
[2024-10-17 15:33] VITALS: BP 147/95; PULSE 85; O2SAT 100
[2024-10-17 15:38] LABS: Basophils # 0.1 K/mm3 (0-0.2); Basophils % 0.5 % (0.1-2.0); Eosinophils # 0.3 K/mm3 (0.0-0.4); Eosinophils % 2.5 % (0.1-12.0); Hematocrit 38.8 % (37.0-47.0); Lymphocytes # 2.2 K/mm3 (0.7-4.5); Lymphocytes % 19.7 % (10-50); Mean Corpuscular HGB Conc 33.6 g/dL (31.8-35.4); Mean Corpuscular Hemoglobin 30.3 pg (27.0-31.2); Mean Platelet Volume 8.8 fl (7.4-10.4); Monocytes # 0.5 K/mm3 (0.1-1.0); Monocytes % 4.1 % (1.7-9.3); Neutrophils # 8.1 K/mm3 (1.8-7.8); Neutrophils % 73.2 % (37.0-80.0); Platelet Count 339 K/mm3 (142-424); Red Blood Count 4.31 M/mm3 (4.20-5.40); Red Cell Distribution Width 13.6 % (11.5-17.5)
[2024-10-17 15:39] LABS: Albumin Level 4.2 g/dl (3.5-5.0); Chloride 108 mmol/L (98-107); Potassium 4.5 mmoL/L (3.5-5.1); Sodium 134 mmol/L (136-145)
[2024-10-17 15:42] LABS: Alanine Aminotransferase 38 U/L (12-78); Albumin/Globulin Ratio 1.6 (1.1-1.8); Alkaline Phosphatase 80 U/L (38-126); Anion Gap 4.5 mEq/L (5-15); Aspartate Amino Transferase 37 U/L (14-36); Bilirubin,Total 0.4 mg/dl (0.2-1.3); Blood Urea Nitrogen 17 mg/dl (7-17); Carbon Dioxide 26 mmol/L (22.0-30.0); Creatinine Clearance Estimated 66 mL/min (50-200); Estimated Glomerular Filt Rate 61 ml/min (>60); GFR (African American) 74 ML/MIN (>60); Globulin 2.6 g/dL (1.3-3.2); Glucose 100 mg/dl (74-100); Total Protein,Serum 6.8 g/dl (6.3-8.2)
[2024-10-17 15:45] LABS: Activated Partial Thrombo Time 25.4 seconds (22.8-30.6); INR 0.87 (0.9-1.1); Prothrombin Time 9.9 seconds (10.1-12.5)
[2024-10-17 15:54] LABS: HCG Qualitative, Serum Negative (Negative)
--- NOTE | 2024-10-17 16:14 | PC.NURSE ---
pt is at ct
[2024-10-17] MEDS: 0.9 % SODIUM CHLORIDE 50 ML VIAL IV (16:31)
[2024-10-17] MEDS: SODIUM CHLORIDE 0.9% 10ML SYR (RAD ONLY) 10 ML IV (16:31)
[2024-10-17] MEDS: IOPAMIDOL-370 (76%);100ML BOTTLE 160 ML IV (16:32)
[2024-10-17 17:00] VITALS: BP 124/87; PULSE 84; O2SAT 98
[2024-10-17 17:31] VITALS: BP 130/86; PULSE 82; O2SAT 99
[2024-10-17 18:00] VITALS: BP 140/85; PULSE 106; O2SAT 100
[2024-10-17 18:36] VITALS: BP 140/85; PULSE 98; RESP 19; TEMP 36.8; O2SAT 98
[2024-10-18 16:30] LABS: HIV Combo NEGATIVE (Negative)
== END 2024-10-17 18:39 | disposition home or self-care (01) ==
PROVIDERS: Emergency Provider Emergency Medicine
DX: S20.219A Contusion of unspecified front wall of thorax, initial encounter (principal); S30.1XXA Contusion of abdominal wall, initial encounter; S32.009A Unspecified fracture of unspecified lumbar vertebra, initial encounter for closed fracture; R10.9 Unspecified abdominal pain; M25.512 Pain in left shoulder; V89.2XXA Person injured in unspecified motor-vehicle accident, traffic, initial encounter; Y93.89 Activity, other specified
CPT/HCPCS: 70450; 70496; 70498; 71275; 72125; 72128; 72131; 72192; 74174; 80053; 84703; 85025; 85610; 85730; 87389; 96374; 99291; J1171; Q9967

== ENCOUNTER 2024-11-22 09:58 | Day surgery (SDC) | payer OTHER, SELFPAY ==
--- NOTE | 2024-11-22 10:17 | P.PCN_ITS ---
Procedure Date: 11/22/24 Time: 10:32 Anesthesiologist:: Yolie Pierre APRN Complications:: None Pre-procedure Diagnosis:: Degenerative disc disease of lumbar spine with lumbar radiculopathy symptoms, sacroiliitis, degenerative disc disease of cervical spine, mild tenderness Post-procedure Diagnosis:: Same Indications for Procedure:: Patient is a pleasant 44-year-old female who presents today for intrathecal refill and reprogram. Today she rates her pain a 8 out of 10. She denies any n ew trauma or injury. She does state however due to the fact that they have turned down her pump to very minimal flow that she has had quite a bit more pain. Patient continues to experience significant numbness all along her right extremity. She states is across her low back and hip area going into her groin and down to about her knee. Patient did end that coming into the ER initially where we did first turned down her pump however it gave no additional improvement. Patient states she was then sent to [facility] where one of the providers did believe it was the pump medication. She states that she was turned down to minimal flow however it is made no additional improvement whatsoever with the numbness. She states that that provider had mentioned about putting saline in the pump for about a month to see if it would resolve. She also states that the pain doctor disagreed stating that he did not believe it was related to the pump. Patient is very frustrated due to the continuous issues and that her pain has increased due to the pump dosage being decreased. She is currently managed with bupivacaine 15 mg/mL with a daily dose of 1.019 mg/day. Patient is coming into our office next week for bilateral SI injections. She is prescribed pregabalin from an outside provider and was given also a temporary dose of [place]. She does state that she is almost out of this. Her Amari has been reviewed and is appropriate. Physical Exam: General: Alert and oriented x3, no acute distress, pleasant and cooperative Lungs: Respirations even and unlabored, symmetrical chest expansion Eyes: PERRL Musculoskeletal: Flexion and extension of lumbar [spine] somewhat guarded secondary to pain, [antalgic gait noted], extreme point tenderness on left SI Neurological: Speech clear, no gross sensory deficit Procedure Details:: Informed consent was obtained and the risk and benefits of the procedure were explained to the patient. The patient had noninvasive monitoring placed including noninvasive blood pressure cuff and pulse oximeter. Patient's pump was interrogated. The area over the pump was cleansed with chlorhexidine as a cleansing solution. In sterile fashion the pump was accessed with a 22-gauge needle. Approximately 4 mls of the pump solution was removed and discarded appropriately. The pump was then refilled with 20 mL's of bupivacaine 15 mg/mL. The needle was withdrawn and a bandage was placed over the puncture site. The infusion rate was reprogrammed and continued at 1.01 mg/day of bupivacaine. The patient tolerated well with no complication. Plan and Disposition:: Patient tolerated her procedure well with no complications and was discharged neurologically intact. I did discuss at length with the patient that I do strongly feel like this is unrelated to the pump. Patient did have her pump decreased down to minimal flow with no changes whatsoever to her numbness. I did review with the patient due to her chronic history of sacroiliitis that this may help some of this pain when she comes for her injection Monday and we will follow-up with this after. I did recommend that I would like her to see Dr. Jimenez due to her abnormal symptoms. Patient agrees with this plan of care. We will make her a follow-up appointment there at our [facility] location for next . Patient will also be here next Monday for her injections. We will see the patient back in the clinic at the next intrathecal refill. Patient has been instructed to contact the clinic with any concerns before the next appointment. Dr. Jimenez has reviewed this note and agrees with this plan of care. This note was dictated using voice recognition software and make contain errors or omissions. -- It Is medically necessary for this patient to continue to have their intrathecal pump refilled at regular intervals. This patient had an intrathecal pain pump implanted after meeting criteria of chronic intractable pain for greater than 3 months and failing conservative treatments. Patient has committed and been compliant to the treatment plan and all planned follow up care. Since implantation of the intrathecal pain pump, the patient has had decreased pain and been more functional. Oral medications have been reduced including intake of oral opioids. Patient continues to do well with intrathecal therapy with decrease in pain symptoms and increase in functional status. Stopping intrathecal medications can lead to life threatening withdrawal, seizures, cardiac arrest, severe pain, and possible . Pumps that are not refilled at regular intervals can be damages and cause and need for replacement. We continually titrate dose and concentration to optimize pain relief and function. We are limited in concentration for certain drugs to safely deliver medications through the pump and stay within the recommendations from the Polyanalgesic Consensus Committee Guidelines. Depending on dose and concentration these pumps may need to be refilled sooner than 3 months as we titrate. A UDS is needed to verify patient's compliance with our office pain contract. This is ordered based off specific treatments related to chronic pain with the potential to abuse certain medications.
[2024-11-22 10:19] VITALS: BP 156/101; PULSE 108; RESP 16; TEMP 36.8; O2SAT 98; BMI 43.2
[2024-11-22 10:55] VITALS: BP 128/87; PULSE 89; RESP 16; O2SAT 100
[2024-11-22 10:59] VITALS: BP 152/99; PULSE 93; RESP 18; O2SAT 98
[2024-11-22 11:01] VITALS: BP 152/99; PULSE 93; RESP 18; O2SAT 98
== END 2024-11-22 10:50 | disposition home or self-care (01) ==
PROVIDERS: PCP Student in an Organized Health Care Education/Training Program; Visit Provider Nurse Practitioner Family
DX: M51.16 Intervertebral disc disorders with radiculopathy, lumbar region (principal); M46.1 Sacroiliitis, not elsewhere classified; M50.30 Other cervical disc degeneration, unspecified cervical region
CPT/HCPCS: 62370; 99212; G0463

== ENCOUNTER 2024-11-26 08:49 | Day surgery (SDC) | payer OTHER, SELFPAY ==
[2024-11-26 09:10] VITALS: BP 146/79; PULSE 92; RESP 18; TEMP 36.4; O2SAT 100; BMI 41.5
[2024-11-26 09:50] VITALS: BP 151/92; PULSE 82; RESP 18; O2SAT 100
[2024-11-26] MEDS: LIDOCAINE 1% 5ML PF VIAL 5 ML (09:52)
[2024-11-26] MEDS: BUPIVACAINE 0.25% 10ML INJ 25 MG IJ (09:52)
[2024-11-26 09:54] VITALS: BP 156/55; PULSE 83; RESP 18; O2SAT 100
[2024-11-26 09:56] VITALS: BP 156/55; PULSE 83; RESP 18; O2SAT 100
--- NOTE | 2024-11-26 10:17 | P.PCN_ITS ---
Procedure Date: 11/26/24 Time: 10:00 Anesthesiologist:: Denis Hare CRNA Complications:: None Pre-procedure Diagnosis:: Bilateral sacroiliitis Post-procedure Diagnosis:: Same Indications for Procedure:: Patient is a pleasant 44-year-old female who comes our clinic today for bilateral sacroiliac joint injections of cortisone and local anesthetic. Patient describes low lumbar back pain off the midline bilaterally. Bilateral posterior hip pain. Difficulty transitioning from sitting to standing. Difficulty with ambulation. She rates her pain 8/10. Procedure Details:: Procedure: Bilateral sacroiliac joint injections under fluoroscopy Informed consent was obtained and the risks and benefits of the procedure were explained to the patient.~ The patient was taken to the procedure room and noninvasive monitors were placed including a noninvasive blood pressure cuff and pulse oximeter.~ The patient was placed prone on the procedure table. Both hips were cleansed using Betadine as a cleansing solution. C-arm fluoroscopy was used to view the right sacroiliac joint.~ The skin and subcutaneous tissues were anesthetized using lidocaine 1.5% and a 25-gauge needle.~ After this, a 22-gauge spinal needle was inserted under fluoroscopic guidance into the inferior aspect of the right sacroiliac joint.~ Omnipaque dye was injected and good spread was seen throughout the joint.~ After this, approximately 5 mL of bupivacaine, 0.25% and Depo-Medrol, 40 mg was incrementally injected into the right sacroiliac joint. We then moved to the left sacroiliac joint.~ The skin and subcutaneous tissues were anesthetized using lidocaine 1.5% and a 25-gauge needle.~ After this, a 22- gauge spinal needle was inserted under fluoroscopic guidance into the inferior aspect of the left sacroiliac joint.~ Omnipaque dye was injected and good spread was seen throughout the joint. After this, approximately 5 mL of bupivacaine, 0.25% and Depo-Medrol, 40 mg was incrementally injected into the left sacroiliac joint.~ The patient tolerated the procedure well with no complications. The patient was observed in the Pain Clinic and then was discharged home neurologically intact. Plan and Disposition:: Patient was discharged incident.
== END 2024-11-26 09:50 | disposition home or self-care (01) ==
LOC: SC.PAINP 08:50
PROVIDERS: PCP Student in an Organized Health Care Education/Training Program; Visit Provider Nurse Practitioner Family
DX: M46.1 Sacroiliitis, not elsewhere classified (principal)
CPT/HCPCS: 27096; G0260; J1010

== ENCOUNTER 2024-12-13 08:30 | Outpatient (POV) | payer OTHER, SELFPAY ==
[2024-12-13 08:45] VITALS: BP 117/74; PULSE 75; RESP 16; O2SAT 100; BMI 43.2
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
== END 2024-12-13 23:59 | disposition home or self-care (01) ==
PROVIDERS: PCP Nurse Practitioner Family; Visit Provider Nurse Practitioner Family
DX: M46.1 Sacroiliitis, not elsewhere classified (principal); Z79.899 Other long term (current) drug therapy
CPT/HCPCS: 99212; G0463

== ENCOUNTER 2025-02-20 13:27 | Day surgery (SDC) | payer OTHER, SELFPAY ==
[2025-02-20 13:35] VITALS: BP 133/85; PULSE 63; RESP 16; TEMP 36.8; O2SAT 100; BMI 44.9
--- NOTE | 2025-02-20 13:58 | P.PCN_ITS ---
Procedure Date: 02/20/25 Time: 13:48 Anesthesiologist:: Yolie Pierre APRN Complications:: None Pre-procedure Diagnosis:: Degenerative disc disease of lumbar spine with lumbar radiculopathy symptoms Post-procedure Diagnosis:: Same Indications for Procedure:: patient is a pleasant 44-year-old female who presents today for intrathecal refill and reprogram. Today she rates her pain a 8 out of 10. She denies any new trauma or injury. Patient does state from the last visit here in our [facility] location she is still been experiencing the right leg numbness however now it is going even to the left side. Patient states she has continued to have multiple exams and testing with no additional information. She states she is seeing so many specialist and they are still unable to give her answers on what is causing this. Patient does state that she is doing well with her pump however would like additional adjustment. Patient is currently managed with bupivacaine 15 mg/mL and Dilaudid 0.5 mg/mL. She denies any side effects. Patient is having a concentration change today. Her Amari has been reviewed and is appropriate. Physical Exam: General: Alert and oriented x3, no acute distress, pleasant and cooperative Lungs: Respirations even and unlabored, symmetrical chest expansion Eyes: PERRL Musculoskeletal: Flexion and extension of lumbar [spine] somewhat guarded secondary to pain, [antalgic gait noted] Neurological: Speech clear, no gross sensory deficit Procedure Details:: Informed consent was obtained and the risk and benefits of the procedure were explained to the patient. The patient had noninvasive monitoring placed including noninvasive blood pressure cuff and pulse oximeter. Patient's pump was interrogated. The area over the pump was cleansed with chlorhexidine as a cleansing solution. In sterile fashion the pump was accessed with a 22-gauge needle. Approximately 2 mls of the pump solution was removed and discarded appropriately. The pump was then refilled with 20 mL's of Dilaudid 1 mg/mL and bupivacaine 15 mg/mL. The needle was withdrawn and a bandage was placed over the puncture site. The infusion rate was reprogrammed and changed to Dilaudid as primary with a daily dose of 0.1599 mg/day and bupivacaine 2.399 mg/day. The patient tolerated well with no complication. Plan and Disposition:: Patient tolerated the procedure well with no complications and was discharged neurologically intact. I did counseling center manager the patient regarding her concentration change and changing the Dilaudid to the primary medication that there will be a bridge bolus timeframe of a little over 34 hours and that during this time she would not be able to use her bolus device. Patient agrees with this plan of care. Patient was told that she would have up to 6 boluses in a 24-hour. That she can use as needed. Patient agrees with this plan of care. We did give her a tentative 2-week follow-up in case she needs additional adjustment on her pump and that she was counseled that she can cancel this appointment if she does not need it. Patient agrees with this. Patient will return to clinic on or before their next intrathecal refill date. We will see the patient back in the clinic at the next intrathecal refill. Patient has been instructed to contact the clinic with any concerns before the next appointment. Dr. Jimenez has reviewed this note and agrees with this plan of care. This note was dictated using voice recognition software and make contain errors or omissions. -- It Is medically necessary for this patient to continue to have their intrathecal pump refilled at regular intervals. This patient had an intrathecal pain pump implanted after meeting criteria of chronic intractable pain for greater than 3 months and failing conservative treatments. Patient has committed and been compliant to the treatment plan and all planned follow up care. Since implantation of the intrathecal pain pump, the patient has had decreased pain and been more functional. Oral medications have been reduced including intake of oral opioids. Patient continues to do well with intrathecal therapy with decrease in pain symptoms and increase in functional status. Stopping intrathecal medications can lead to life threatening withdrawal, seizures, cardiac arrest, severe pain, and possible . Pumps that are not refilled at regular intervals can be damages and cause and need for replacement. We continually titrate dose and concentration to optimize pain relief and function. We are limited in concentration for certain drugs to safely deliver medications through the pump and stay within the recommendations from the Polyanalgesic Consensus Committee Guidelines. Depending on dose and concentration these pumps may need to be refilled sooner than 3 months as we titrate. A UDS is needed to verify patient's compliance with our office pain contract. This is ordered based off specific treatments related to chronic pain with the potential to abuse certain medications.
[2025-02-20 14:24] VITALS: BP 159/98; PULSE 70; RESP 16; O2SAT 100
[2025-02-20 14:41] VITALS: BP 159/98; PULSE 70; RESP 16; O2SAT 100
== END 2025-02-20 14:42 | disposition home or self-care (01) ==
PROVIDERS: PCP Nurse Practitioner Family; Visit Provider Nurse Practitioner Family
DX: M51.16 Intervertebral disc disorders with radiculopathy, lumbar region (principal)
CPT/HCPCS: 62370

== ENCOUNTER 2025-03-06 13:01 | Outpatient (POV) | payer OTHER, SELFPAY ==
[2025-03-06 13:28] VITALS: BP 139/86; PULSE 74; RESP 14; O2SAT 97; BMI 45.7
--- NOTE | 2025-03-06 13:45 | P.PCN_ITS ---
Procedure Date: 03/06/25 Time: 13:38 Anesthesiologist:: Yolie Pierre APRN Complications:: None Pre-procedure Diagnosis:: Degenerative disc disease of lumbar spine with lumbar radiculopathy symptoms, sacroiliitis Post-procedure Diagnosis:: Same Indications for Procedure:: Patient is a pleasant 45-year-old female who presents today for 2-week follow-up and intrathecal adjustment and reprogram. Today she rates her pain as 7 out of 10. She denies any new trauma or injury. At her last visit we did change her Dilaudid to primary and her pump and bupivacaine secondary. She denied any side effects. Patient is currently managed with Dilaudid 1 mg/mL with a daily dose of 0.1599 mg/day and bupivacaine 15 mg/mL with a daily dose of 2.399 mg/day. She denies any side effects. Patient was seeing Dr. Jimenez there at the [place] location however lives here in [place] and did request to be seen back at our office. Patient does continue to have the numbness in her right upper thigh however is still experiencing it going towards her left side more frequently. Patient is still being seen by multiple specialist to see what is going on to cause this worsening symptoms. Patient states that she noticed no additional changes or increases to the numbness from our last visit. She is requesting an increase. Her Amari has been reviewed and is appropriate. Physical Exam: General: Alert and oriented x3, no acute distress, pleasant and cooperative Lungs: Respirations even and unlabored, symmetrical chest expansion Eyes: PERRL Musculoskeletal: Flexion and extension of lumbar [spine] somewhat guarded secondary to pain, [antalgic gait noted] Neurological: Speech clear, no gross sensory deficit Procedure Details:: Informed consent was obtained and the risk and benefits of the procedure were explained to the patient. Patient did have noninvasive monitoring was placed including noninvasive blood pressure cuff and pulse oximeter. Patient's pump was interrogated and was reprogrammed to Dilaudid 0.2078 mg/day and bupivacaine 3.117 mg/day. The patient tolerated the procedure well with no complications. Plan and Disposition:: Patient tolerated the procedure well with no complications and was discharged neurologically intact. I did discuss with the patient because we were making a heavier increase of 30% today if she is up having any additional side effects to please immediately contact our office to get back in and turn her down. Patient acknowledges understanding agrees with this plan of care. Patient was requested to have larger increases at Dr. Jimenez's discretion. Patient will be given a 2- week tentative follow-up appointment. Patient tolerated the procedure well with no complications and was discharged neurologically intact. Patient will return to clinic on or before their next intrathecal refill date. We will see the patient back in the clinic at the next intrathecal refill. Patient has been instructed to contact the clinic with any concerns before the next appointment. Dr. Jimenez has reviewed this note and agrees with this plan of care. This note was dictated using voice recognition software and make contain errors or omissions. -- It Is medically necessary for this patient to continue to have their intrathecal pump refilled at regular intervals. This patient had an intrathecal pain pump implanted after meeting criteria of chronic intractable pain for greater than 3 months and failing conservative treatments. Patient has committed and been compliant to the treatment plan and all planned follow up care. Since implantation of the intrathecal pain pump, the patient has had decreased pain and been more functional. Oral medications have been reduced including intake of oral opioids. Patient continues to do well with intrathecal therapy with decrease in pain symptoms and increase in functional status. Stopping intrathecal medications can lead to life threatening withdrawal, seizures, cardiac arrest, severe pain, and possible . Pumps that are not refilled at regular intervals can be damages and cause and need for replacement. We continually titrate dose and concentration to optimize pain relief and function. We are limited in concentration for certain drugs to safely deliver medications through the pump and stay within the recommendations from the Polyanalgesic Consensus Committee Guidelines. Depending on dose and concentration these pumps may need to be refilled sooner than 3 months as we titrate. A UDS is needed to verify patient's compliance with our office pain contract. This is ordered based off specific treatments related to chronic pain with the potential to abuse certain medications.
== END 2025-03-06 23:59 | disposition home or self-care (01) ==
PROVIDERS: PCP Nurse Practitioner Family; Visit Provider Nurse Practitioner Family
DX: M51.16 Intervertebral disc disorders with radiculopathy, lumbar region (principal); M46.1 Sacroiliitis, not elsewhere classified
CPT/HCPCS: 62368; 99212; 99213; G0463

== ENCOUNTER 2025-03-20 08:54 | Outpatient (POV) | payer OTHER, SELFPAY ==
--- OUTSIDE RECORDS SUMMARY | 2025-03-20 08:56 | XMS_ITS | Data Portability ---
Author Organization [place] [facility] [place] [facility] [place] [facility] AD[facility] Address [address] [place] [id number] Care Team Providers Care Svp Research And Strategic Analysis Name Role Phone SEAN PINA Primary Care Provider Assessment Encounter Date Assessment Date Assessment LastModified by Organization Details LastModified Time 12/12/2022 12/12/2022 42-year-old female with: 1) Ineffective esophageal motility: Findings from high resolution esophageal manometry 11/01/2022. -Continue PPI. Will start Motegrity 2 mg p.o. daily. If globus sensation/dysphag ia do not improve, will plan for referral to [facility]. 2) Chronic idiopathic constipation: Linzess has been ineffective. Start Motegrity for constipation. This will also hopefully promote motility of the esophagus as well for her. Opioid and iron therapy also probably contributing to constipation. I have recommended she decrease iron therapy to every other day. May consider Relistor or Movantik in the future if necessary. 3) Chavez's esophagus: Continue PPI. Repeat EGD due 09/2025. 4) Globus sensation/frequen t throat clearing: Suspect related to #1. ENT evaluation complete. Treatment for possible LPR has not improved her symptoms. 5) Abnormal MRI finding of rectum: Incidental finding of possible proctitis. This was not appreciated on colonoscopy 11/21/2022. Repeat colonoscopy for colorectal cancer screening suggested in 10 years. f/u 4 weeks [email or web address] Not available 12/12/2022 12:17:47 01/09/2023 01/09/2023 42-year-old female with: 1) Ineffective esophageal motility: Findings from high resolution esophageal manometry 11/01/2022. -EGD with empiric dilation 09/28/2022 did not improve her symptoms. -Continue PPI. -Motegrity was declined by her insurance -Will place [facility] to [facility]. 2) Chronic idiopathic constipation: Motegrity denied by insurance. Increase Linzess to 290 mcg p.o. daily. 3) Chavez's esophagus: Continue PPI. Repeat EGD due 09/2025. 4) Globus sensation/frequen t throat clearing: Suspect related to #1. ENT evaluation complete. Treatment for possible LPR has not improved her symptoms. 5) Abnormal MRI finding of rectum: Incidental finding of possible proctitis. This was not appreciated on colonoscopy 11/21/2022. Repeat colonoscopy for colorectal cancer screening suggested in 10 years. f/u 4 weeks [email or web address] Not available 01/09/2023 11:17:42 03/13/2023 03/13/2023 recently diagnosed with 43-year-old female with: 1) Ineffective esophageal motility: Findings from high resolution esophageal manometry 11/01/2022. -EGD with empiric dilation 09/28/2022 did not improve her symptoms. -Continue PPI. -Motegrity was declined by her insurance -Patient has consultation with [facility] on 04/20/23. 2) IBS-C: Motegrity denied by insurance. Linzess 290 mcg p.o. once daily is currently managing this well. 3) Chavez's esophagus: Continue PPI. Repeat EGD due 09/2025. 4) Globus sensation/frequen t throat clearing: Suspect related to #1. ENT evaluation complete. Treatment for possible LPR has not improved her symptoms. 5) Abnormal MRI finding of rectum: Incidental finding of possible proctitis. This was not appreciated on colonoscopy 11/21/2022. Repeat colonoscopy for colorectal cancer screening suggested in 10 years. f/u 6 weeks [email or web address] Not available 03/13/2023 20:36:00 12/29/2023 12/29/2023 43-year-old female with: 1) Ineffective esophageal motility/GERD/Pos t prandial vomiting: Findings from high resolution esophageal manometry 11/01/2022. Currently following with [facility]. -EGD with empiric dilation 09/28/2022 did not improve her symptoms. -Stop nexium and pantoprazole. Will prescribe Dexilant 60 mg once daily for increased acid reflux and postprandial vomiting. 2) IBS-C: Motegrity denied by insurance. Linzess 290 mcg p.o. once daily is currently managing this well. 3) Chavez's esophagus: Continue PPI. Repeat EGD due 09/2025. 4) Globus sensation/frequen t throat clearing: Suspect related to #1. ENT evaluation complete. Treatment for possible LPR has not improved her symptoms. -[facility] prescribed buspirone which relieved the Patients symptoms. Advised patient to contact them to refill this prescription. Advised patient to stop pyridostigmine once she starts buspirone. 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 She reports the Cymbalta has not been helpful for her. She has karri appointment with rheumatology in a few weeks. 5) Abnormal MRI finding of rectum: Incidental finding of possible proctitis. This was not appreciated on colonoscopy 11/21/2022. Repeat colonoscopy for colorectal cancer screening suggested in 10 years. 6) H. pylori infection: Treated with bismuth quadruple therapy. Needs eradication testing. Will schedule nurse visit for breath test or H pylori stool test. f/u 6 weeks [email or web address] Not available 12/29/2023 12:55:25 Plan of Treatment Reminders Order Date Submit Date Provider Last Modified By Organization Details Last Modified Time Details Appointments None recorded. Lab None recorded. Referral None recorded. Procedures None recorded. Surgeries None recorded. Imaging None recorded. Medication Orders Dexilant 60 mg capsule, delayed release 2023 024 [email or web address] [facility], [address] [place] [address], [facility], [place], [address], 4 12:41:17 Linzess 290 mcg capsule 2022 023 [email or web address] [facility], [address] [place] [address], [facility], [place], [address], 3 11:26:03 Motegrity 2 mg tablet 2022 023 [email or web address] [facility], [address] [place] [address], [facility], [place], [address], 3 12:04:07 Patient TargetsNo targets recorded. Patient Instructions Encounter Date Encounter Id Patient Instructions Last Modified By Organization Details Last Modified Time 01/09/2023 [id number] DATE OF OPERATIO N: 09/28/2022 SURGEON: Sekou Garza MD PROCEDURE: Esophagogastroduod enoscopy. INDICATION FOR PROCEDURE: The patient is a very pleasant 42-year-old female with recent globus sensation. She does have a history of Chavez esophagus. EGD is planned for further evaluation and treatment. ASA SCORE: II. ANESTHESIA: MAC anesthesia provided by the anesthesia department. DESCRIPTION OF OPERATION: After informed consent, the patient was positioned in a left lateral decubitus position. A standard gastroscope was advanced from the mouth to the second portion of the duodenum without difficulty to the proximal jejunum. The patient's toleration of the scope passage was excellent. Views were excellent. The scope was withdrawn. The mucosa was carefully examined. Within the esophagus, the Z-line was identified at 36 cm from the incisors and was mildly irregular in appearance. Biopsies were performed. The gastric pouch is somewhat dilated. Mild erythema was noted throughout. Biopsies were performed. The proximal jejunum and the gastrojejunal anastomosis appeared normal. At the conclusion of the procedure, a Savary guidewire was placed into the distal gastric pouch. The gastroscope was removed over the guidewire. Thereafter, a 57-[place] Savary dilator was passed for purposes of empiric dilation. COMPLICATIONS: None. BLOOD LOSS: Minimal. CONCLUSION: Irregular Z-line. Biopsies performed. Empiric dilation performed to 57-[place]. Mildly dilated gastric pouch with erythema of the gastric mucosa. Biopsies performed. Normal gastrojejunal anastomosis and downstream jejunum. RECOMMENDATIONS: The patient's biopsy specimen will be reviewed and she will follow up in the clinic. -------- DATE OF OPERATION: 11/21/2022 SURGEON: Sekou Garza MD PROCEDURE: Colonoscopy. INDICATION FOR PROCEDURE: The patient is a very pleasant 42-year-old female with iron deficiency anemia. Colonoscopy is planned for further evaluation. ASA SCORE: II. ANESTHESIA: MAC anesthesia provided by the Anesthesia Department. DESCRIPTION OF OPERATION: After informed consent, the patient was positioned in the left lateral decubitus position. A digital rectal exam was performed and was normal. A pediatric colonoscope was advanced from the anus to the terminal ileum without difficulty. The patient's toleration of the scope passage was excellent. The quality of preparation was good. Views were good. The scope was withdrawn. The mucosa was carefully examined. The terminal ileum appeared normal. The entire colon appeared normal. Retroflexion was performed in the rectum and was normal. COMPLICATIONS: None. BLOOD LOSS: None. CONCLUSION: Normal colonoscopy. RECOMMENDATIONS: The patient is recommended to undergo repeat colonoscopy for colorectal cancer screening purposes in 10 years. [email or web address] Not available 01/09/2023 11:14:46 03/13/2023 [id number] DATE OF OPERATIO N: 09/28/2022 SURGEON: Sekou Garza MD PROCEDURE: Esophagogastroduod enoscopy. INDICATION FOR PROCEDURE: The patient is a very pleasant 42-year-old female with recent globus sensation. She does have a history of Chavez esophagus. EGD is planned for further evaluation and treatment. ASA SCORE: II. ANESTHESIA: MAC anesthesia provided by the anesthesia department. DESCRIPTION OF OPERATION: After informed consent, the patient was positioned in a left lateral decubitus position. A standard gastroscope was advanced from the mouth to the second portion of the duodenum without difficulty to the proximal jejunum. The patient's toleration of the scope passage was excellent. Views were excellent. The scope was withdrawn. The mucosa was carefully examined. Within the esophagus, the Z-line was identified at 36 cm from the incisors and was mildly irregular in appearance. Biopsies were performed. The gastric pouch is somewhat dilated. Mild erythema was noted throughout. Biopsies were performed. The proximal jejunum and the gastrojejunal anastomosis appeared normal. At the conclusion of the procedure, a Savary guidewire was placed into the distal gastric pouch. The gastroscope was removed over the guidewire. Thereafter, a 57-[place] Savary dilator was passed for purposes of empiric dilation. COMPLICATIONS: None. BLOOD LOSS: Minimal. CONCLUSION: Irregular Z-line. Biopsies performed. Empiric dilation performed to 57-[place]. Mildly dilated gastric pouch with erythema of the gastric mucosa. Biopsies performed. Normal gastrojejunal anastomosis and downstream jejunum. RECOMMENDATIONS: The patient's biopsy specimen will be reviewed and she will follow up in the clinic. -------- DATE OF OPERATION: 11/21/2022 SURGEON: Sekou Garza MD PROCEDURE: Colonoscopy. INDICATION FOR PROCEDURE: The patient is a very pleasant 42-year-old female with iron deficiency anemia. Colonoscopy is planned for further evaluation. ASA SCORE: II. ANESTHESIA: MAC anesthesia provided by the Anesthesia Department. DESCRIPTION OF OPERATION: After informed consent, the patient was positioned in the left lateral decubitus position. A digital rectal exam was performed and was normal. A pediatric colonoscope was advanced from the anus to the terminal ileum without difficulty. The patient's toleration of the scope passage was excellent. The quality of preparation was good. Views were good. The scope was withdrawn. The mucosa was carefully examined. The terminal ileum appeared normal. The entire colon appeared normal. Retroflexion was performed in the rectum and was normal. COMPLICATIONS: None. BLOOD LOSS: None. CONCLUSION: Normal colonoscopy. RECOMMENDATIONS: The patient is recommended to undergo repeat colonoscopy for colorectal cancer screening purposes in 10 years. [email or web address] Not available 03/13/2023 20:11:48 12/29/2023 [id number] DATE OF OPERATIO N: 09/28/2022 SURGEON: Sekou Garza MD PROCEDURE: Esophagogastroduod enoscopy. INDICATION FOR PROCEDURE: The patient is a very pleasant 42-year-old female with recent globus sensation. She does have a history of Chavez esophagus. EGD is planned for further evaluation and treatment. ASA SCORE: II. ANESTHESIA: MAC anesthesia provided by the anesthesia department. DESCRIPTION OF OPERATION: After informed consent, the patient was positioned in a left lateral decubitus position. A standard gastroscope was advanced from the mouth to the second portion of the duodenum without difficulty to the proximal jejunum. The patient's toleration of the scope passage was excellent. Views were excellent. The scope was withdrawn. The mucosa was carefully examined. Within the esophagus, the Z-line was identified at 36 cm from the incisors and was mildly irregular in appearance. Biopsies were performed. The gastric pouch is somewhat dilated. Mild erythema was noted throughout. Biopsies were performed. The proximal jejunum and the gastrojejunal anastomosis appeared normal. At the conclusion of the procedure, a Savary guidewire was placed into the distal gastric pouch. The gastroscope was removed over the guidewire. Thereafter, a 57-[place] Savary dilator was passed for purposes of empiric dilation. COMPLICATIONS: None. BLOOD LOSS: Minimal. CONCLUSION: Irregular Z-line. Biopsies performed. Empiric dilation performed to 57-[place]. Mildly dilated gastric pouch with erythema of the gastric mucosa. Biopsies performed. Normal gastrojejunal anastomosis and downstream jejunum. RECOMMENDATIONS: The patient's biopsy specimen will be reviewed and she will follow up in the clinic. -------- DATE OF OPERATION: 11/21/2022 SURGEON: Sekou Garza MD PROCEDURE: Colonoscopy. INDICATION FOR PROCEDURE: The patient is a very pleasant 42-year-old female with iron deficiency anemia. Colonoscopy is planned for further evaluation. ASA SCORE: II. ANESTHESIA: MAC anesthesia provided by the Anesthesia Department. DESCRIPTION OF OPERATION: After informed consent, the patient was positioned in the left lateral decubitus position. A digital rectal exam was performed and was normal. A pediatric colonoscope was advanced from the anus to the terminal ileum without difficulty. The patient's toleration of the scope passage was excellent. The quality of preparation was good. Views were good. The scope was withdrawn. The mucosa was carefully examined. The terminal ileum appeared normal. The entire colon appeared normal. Retroflexion was performed in the rectum and was normal. COMPLICATIONS: None. BLOOD LOSS: None. CONCLUSION: Normal colonoscopy. RECOMMENDATIONS: The patient is recommended to undergo repeat colonoscopy for colorectal cancer screening purposes in 10 years. [email or web address] Not available 12/29/2023 09:44:14 Reason for Referral None Reported. Results Created Date Observation Date Name Description Value Unit Range Abnormal Flag Note LastModifiedBy Organization Detail LastModifiedTime Result Notes None recorded. Problems Name Problem SNOMED Code Status Onset Date Resolution Date Notes Provider Name and Address Organization Details Recorded Time Dyssynergia of neck of urinary bladder 197183460 Active 2022 Not Available [facility] 3 08:02:52 Nausea and vomiting 73378201 Active 2022 Not Available [facility] 08:02:52 Abdominal pain 75802988 Active 2022 Not Available [facility] 3 08:02:52 Diarrhea 01956427 Active 2022 Not Available [facility] 3 08:02:52 Bloating symptom 615756633 Active 2022 Not Available [facility] 3 08:02:52 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 2022 Not Available [facility] 3 08:02:52 Chavez's esophagus 365077782 Active 2022 Not Available [facility] 3 08:02:52 Esophageal dysmotility 366559530 Active 2022 Not Available [facility] 3 08:02:52 Chronic idiopathic constipation 56695525 Active 2022 Not Available [facility] 3 08:02:52 Iron deficiency 38364800 Active 2022 Not Available [facility] 3 08:02:52 Feeling of lump in throat 055971497 Active 2022 Not Available [facility] 3 08:02:52 Imaging of gastrointesti nal tract abnormal 942144251 Active 2022 Not Available [facility] 3 08:02:52 Irritable bowel syndrome characterized by constipation 827173536 Active 2022 Not Available [facility] 3 08:02:52 Ankylosing spondylitis 6816657 Active 2022 Not Available [facility] 08:02:52 Problem Notes None recorded. Procedures Surgical History Date Name Laterality Status Provider Name and Address Organization Details Recorded Time 09/14/20 22 completed Kelsey Estefani [place] [facility] [place] [facility] [place] 10/26/2022 14:53:58 09/13/20 22 Fiberoptic Laryngoscopy completed Rajan Lozada [place] [facility] [place] [facility] [place] 09/13/2022 16:12:22 11/06/19 22 EGD completed Kelsey Estefani [place] [facility] [place] [facility] [place] 10/26/2022 14:54:09 11/06/19 20 Joint Replacement completed Kelsey Estefani [place] [facility] [place] [facility] [place] 10/24/2022 14:15:17 11/10/19 19 Date of Last Colonoscopy completed Kelsey Estefani [place] [facility] [place] [facility] [place] 10/26/2022 14:53:58 11/06/19 19 Cholecystectomy completed Kelsey Estefani [place] [facility] [place] [facility] [place] 10/24/2022 14:15:17 11/06/19 19 Colonoscopy completed Kelsey Estefani [place] [facility] [place] [facility] [place] 10/24/2022 14:15:17 06/16/20 17 Date of Last Pap Smear completed Kelsey Estefani [place] [facility] [place] [facility] [place] 10/26/2022 14:53:58 11/06/19 17 Other completed Kelsey Estefani [place] [facility] [place] [facility] [place] 10/24/2022 14:15:17 11/06/19 16 Appendectomy completed Kelsey Estefani [place] [facility] [place] [facility] [place] 10/24/2022 14:15:17 11/06/19 15 Appendectomy completed Kelsey Estefani [place] [facility] [place] [facility] [place] 10/26/2022 14:54:08 11/06/19 11 Other completed Kelsey Estefani [place] [facility] [place] [facility] [place] 10/24/2022 14:15:17 11/06/19 11 Abdominal Surgery completed Kelsey Estefani [place] [facility] [place] [facility] [place] 10/26/2022 14:54:09 11/06/18 86 Tonsillectomy/Nader oidectomy completed Kelsey CLAIRE - [facility] & [place] 10/26/2022 14:54:09 appendectomy completed Not Available [facility] 10/23/2022 12:01:54 Cholecystectomy w/cholang completed Not Available [facility] 10/23/2022 12:01:54 partial hysterectomy completed Not Available [facility] 10/23/2022 12:01:54 total replacement of left knee joint completed Not Available [facility] 10/23/2022 12:01:54 total replacement of right knee joint completed Not Available [facility] 10/23/2022 12:01:54 Gastric bypass for obesity completed Not Available [facility] 10/23/2022 12:01:54 Tonsillectomy completed Not Available [facility] 10/23/2022 12:01:54 Imaging Results None recorded. Procedure Notes None recorded. Medical Equipment None Reported. Allergies Allergen ID Allergen Name Allergen Category Reaction Reaction Severity Criticality Documentation Date Start Date Code Code System Note Provider Name and Address Organization Details Recorded Time 94143 Product containin g penicilli n (product) medicatio n Not available Not available Not available 09/13/2022 61535 8001 SNOMED Kelsey Jara null, [place] - [facility] & [place] 2 14:53:46 88589 amlodipin e medicatio n Not available Not available Not available 09/13/2022 48658 RxNorm Kelsey Jara null, [place] - [facility] [place] & [place] 2 14:53:46 78051 trazodone medicatio n Not available Not available Not available 09/13/2022 62742 RxNorm Kelsey Jara null, [place] - [facility] [place] & [place] 2 14:53:46 14587 Ceclor medicatio n Not available Not available Not available 09/13/202206860 5 RxNorm Kelsey Jara null, [place] - [facility] [place] & [place] 2 14:53:46 Medications Name Sig Start Date Stop Date Status Note LastModified by Organization Details LastModified Time amantadine HCl 100 mg tablet active Not Available Not Available Not Available buspirone 5 mg tablet active Not Available Not Available No t Available promethazin e-DM 6.25 mg-15 mg/5 mL oral syrup 09/13 completed Not Available Not Available Not Available acetaminoph en 325 mg tablet active Not Available Not Available Not Available Carafate 100 mg/mL oral suspension Take 10 mL 4 times a day by oral route for 30 days. 12/12 completed Not Available Not Available Not Available clindamycin HCl 300 mg capsule 09/13 completed Not Available Not Available Not Available trazodone 50 mg tablet 09/13 completed Not Available Not Available Not Available cetirizine 10 mg tablet TAKE 1 TABLET BY MOUTH ONCE DAILY NEEDED FOR ALLERGY SYMPTOMS active Not Available Not Available No t Available azithromyci n 250 mg tablet active Not Available Not Available Not Available tizanidine 4 mg tablet TAKE ONE TABLET BY MOUTH 3 TIMES A DAY FOR MUSCLE RELAXANT MAY CAUSE DROWSINES S active Not Available Not Available No t Available metoprolol succinate ER 50 mg tablet,exte nded release 24 hr TAKE 1 TABLET BY MOUTH ONCE DAILY 09/13 completed Not Available Not Available Not Available senna 8.6 mg tablet active Not Available Not Available No t Available promethazin e 12.5 mg tablet active Not Available Not Available Not Available lisinopril 20 mg tablet 09/13 completed Not Available Not Available Not Available prednisone 20 mg tablet active Not Available Not Available Not Available clonazepam 0.5 mg tablet active Not Available Not Available Not Available prednisone 5 mg tablet active Not Available Not Available Not Available sulfasalazi ne 500 mg tablet,yolis yed release active Not Available Not Available Not Available metronidazo le 250 mg tablet Take 1 tablet every 6 hours by oral route for 14 days. 2022 active Not Available Not Available Not Avai lable topiramate 25 mg tablet active Not Available Not Available Not Available triamcinolo ne acetonide 0.5 % topical ointment 09/10 completed Not Available Not Available Not Available metronidazo le 500 mg tablet active Not Available Not Available Not Available phentermine 37.5 mg tablet TAKE 1 TABLET BY MOUTH ONCE DAILY MUST ADMINISTE R 30 MINUTES BEFORE OR 1-2 HOURS AFTER BREAKFAST FOR WEIGHT LOSS active Not Available Not Available No t Available ciprofloxac in 500 mg tablet 09/13 completed Not Available Not Available Not Available sulfamethox azole 800 mg-trimetho prim 160 mg tablet active Not Available Not Available Not Available tramadol 50 mg tablet TAKE ONE TABLET BY MOUTH 3 TIMES A DAY MAY CAUSE DROWSINES S active Not Available Not Available No t Available hydrocortis one acetate 25 mg rectal suppository Insert by rectal route for 14 days. 12/12 completed Not Available Not Available Not Available tamsulosin 0.4 mg capsule active Not Available Not Available Not Available trazodone 100 mg tablet 09/13 completed Not Available Not Available Not Available diazepam 2 mg tablet 09/13 completed Not Available Not Available Not Available amlodipine 10 mg tablet TAKE 1 TABLET BY MOUTH ONCE DAILY 09/13 completed Not Available Not Available Not Available benzonatate 100 mg capsule active Not Available Not Available Not Available doxycycline monohydrate 100 mg capsule Take 1 capsule twice a day by oral route for 14 days. active Not Available Not Available No t Available pantoprazol e 40 mg tablet,yolis yed release Take 1 tablet twice a day by oral route for 14 days. 2022 active Not Available Not Available Not Avai lable esomeprazol e magnesium 40 mg capsule,del ayed release active Not Available Not Available Not Available buspirone 10 mg tablet active Not Available Not Available Not Available pyridostigm ine bromide 60 mg tablet active Not Available Not Available Not Available lisinopril 10 mg tablet TAKE 1 TABLET BY MOUTH ONCE DAILY active Not Available Not Available No t Available fluorometho lone 0.1 % eye drops,suspe nsion 09/13 completed Not Available Not Available Not Available promethazin e 25 mg tablet TAKE ONE TABLET BY MOUTH THREE TIMES DAILY NEEDED FOR NAUSEA AND VOMITING active Not Available Not Available No t Available polymyxin B sulfate 10,000 unit-trimet hoprim 1 mg/mL eye drops 12/12 completed Not Available Not Available Not Available gabapentin 300 mg capsule TAKE 1 CAPSULE BY MOUTH 4 TIMES DAILY 09/13 completed Not Available Not Available Not Available bismuth subsalicyla te 262 mg chewable tablet Take 1 tablet every 6 hours by oral route for 14 days. active Not Available Not Available No t Available diclofenac sodium 75 mg tablet,yolis yed release active Not Available Not Available Not Available folic acid 1 mg tablet active Not Available Not Available Not Available montelukast 10 mg tablet active Not Available Not Available Not Available hydrochloro thiazide 25 mg tablet TAKE 1 TABLET BY MOUTH EVERY MORNING active Not Available Not Available No t Available mirtazapine 15 mg tablet active Not Available Not Available Not Available azelastine 137 mcg (0.1 %) nasal spray active Not Available Not Available Not Available polyethylen e glycol 3350 17 gram/dose oral powder active Not Available Not Available Not Available methylpredn isolone 4 mg tablets in a dose pack active Not Available Not Available Not Available ondansetron 4 mg disintegrat ing tablet Place 1 tablet every 6-8 hours by transling ual route for 5 days. active Not Available Not Available No t Available fluticasone propionate 50 mcg/actuati on nasal spray,suspe nsion active Not Available Not Available Not Available ipratropium bromide 21 mcg (0.03 %) nasal spray active Not Available Not Available Not Available simethicone 80 mg chewable tablet active Not Available Not Available Not Available clonazepam 0.5 mg disintegrat ing tablet active Not Available Not Available N ot Available ciprofloxac in 0.3 %-dexametha sone 0.1 % ear drops,suspe nsion active Not Available Not Available Not Available bupropion HCl XL 150 mg 24 hr tablet, extended release active Not Available Not Available Not Available hydrocodone 10 mg-acetamin ophen 300 mg tablet Take 1 tablet every 6 hours by oral route. active Not Available Not Available No t Available duloxetine 30 mg capsule,del ayed release active Not Available Not Available Not Available duloxetine 60 mg capsule,del ayed release active Not Available Not Available Not Available Constulose 10 gram/15 mL oral solution active Not Available Not Available Not Available Humira Pen 40 mg/0.8 mL subcutaneou s kit active Not Available Not Available Not Available FeroSul 325 mg (65 mg iron) tablet active Not Available Not Available Not Available levocetiriz ine 5 mg tablet active Not Available Not Available Not Available dexlansopra zole 60 mg capsule,bip hase delayed release Take 1 capsule every day by oral route for 30 days. active Not Available Not Available No t Available Gavilyte-C 240 gram-22.72 gram-6.72 gram-5.84 gram oral solution as directed orally 8 oz q15 until empty per office direction s 12/12 completed Not Available Not Available Not Available Horizant ER 600 mg tablet,exte nded release active Not Available Not Available Not Available Linzess 145 mcg capsule active Not Available Not Available Not Available Linzess 290 mcg capsule Take by oral route for 30 days. active Not Available Not Available No t Available Motegrity 2 mg tablet active Not Available Not Available No t Available BinaxNOW COVID-19 Ag Self Test kit Use as Directed on the Package 09/13 completed Not Available Not Available Not Available Vitals Date Recorded Body height Provider Name an d Address Organization Details Last Updated DateTime 11/01/2022 165.1 cm Susan Woodss [place] - [facility] & [place] 11/12/2022 13:05:38 Date Recorded Body height Body mass index (BMI) Body weight Heart rate Systolic blood pressure Diastolic blood pressure Provider Name and Address Organization Details Last Updated DateTime 3 165.1 cm 38.3 kg/m2 741939. 25 g 111 /min 155 mm[Hg] 93 mm[Hg] Krystyna Cash [facility] & [place] 3 11:28:22 Date Recorded Body weight Body mass index (BMI) Body height Body temperature Heart rate Heart rate Oxygen saturation Oxygen saturation in Arterial blood by Pulse oximetry Systolic blood pressure Diastolic blood pressure Provider Name and Address Organization Details Last Updated DateTime 4 760501. 14 g 44.8 kg/m2 165.1 cm 97.7 [degF] 96 /min 85 /min 100 % 100 % 174 mm[Hg] 98 mm[Hg] Maida Munoz [facility] & [place] 4 09:39:09 Social History Question Answer Notes LastModified by Organizat ion Details LastModified Time Tobacco Smoking Status Never Smoker Not Available [employer] 07/25/2023 08:02:53 Do You Have An Advance Directive? No CHART_MERGE Information not available 07/25/2023 Are You Blind Or Do You Have Difficulty Seeing? No CHART_MERGE Information not available 07/25/2023 What Is Your Level Of Caffeine Consumption? Occasional GEOVANY Information not available 10/13/2023 What Was The Date Of Your Most Recent Tobacco Screening? 07/31/2022 CHART_MERGE Information not available 07/25/2023 Are You Passively Exposed To Smoke? No CHART_MERGE Information not available 07/25/2023 Sex: Unknown Functional Status Question Answer Note LastModified by Organizat ion Details LastModified Time Do you use any illicit or recreational drugs? No CHART_MERGE Information not available 07/25/2023 What is your level of alcohol consumption? None CHART_MERGE Information not available 07/25/2023 What is your exercise level? Moderate CHART_MER[employer] Information not available 07/25/2023 Mental Status Question Answer Note LastModified by Organization D etails LastModified Time Do you feel stressed (tense, restless, nervous, or anxious, or unable to sleep at night)? [id number] CHART_MERGE Information not available 07/25/2023 Family History Relationship Description Onset Age of this Age Resolved Age Notes LastModified by Organization Details LastModified Time Father Autoimmune disease pt. added direct ly (07/31) CHART_MERGE Not available 07/25/2023 08:02:49 Father Disorder of endocrine system pt. added direct ly (07/31) CHART_MERGE Not available 07/25/2023 08:02:49 Father Hypercholest erolemia pt. added direct ly (07/31) CHART_MERGE Not available 07/25/2023 08:02:49 Father Hypertensive disorder pt. added direct ly (07/31) CHART_MERGE Not available 07/25/2023 08:02:49 Father Obesity pt. added direct ly (07/31) CHART_MERGE Not available 07/25/2023 08:02:49 Mother Disorder of endocrine system pt. added direct ly (07/31) CHART_MERGE Not available 07/25/2023 08:02:49 Mother Hypercholest erolemia pt. added direct ly (07/31) CHART_MERGE Not available 07/25/2023 08:02:49 Mother Hypertensive disorder pt. added direct ly (07/31) CHART_MERGE Not available 07/25/2023 08:02:49 Mother Mental health problem pt. added direct ly (07/31) CHART_MERGE Not available 07/25/2023 08:02:49 Mother Obesity pt. added direct ly (07/31) CHART_MERGE Not available 07/25/2023 08:02:49 Brother Disorder of endocrine system pt. added direct ly (07/31) CHART_MERGE Not available 07/25/2023 08:02:49 Brother Hypertensive disorder pt. added direct ly (07/31) CHART_MERGE Not available 07/25/2023 08:02:49 Brother Kidney disease pt. added direct ly (07/31) CHART_MERGE Not available 07/25/2023 08:02:49 Brother Substance abuse pt. added direct ly (07/31) CHART_MERGE Not available 07/25/2023 08:02:49 Maternal Grandmother Myocardial infarction pt. added direct ly (07/31) CHART_MERGE Not available 07/25/2023 08:02:49 Maternal Grandmother Obesity pt. added direct ly (07/31) CHART_MERGE Not available 07/25/2023 08:02:49 Son Mental health problem pt. added direct ly (07/31) CHART_MERGE Not available 07/25/2023 08:02:49 Maternal Grandfather Obesity pt. added direct ly (07/31) CHART_MERGE Not available 07/25/2023 08:02:49 Paternal Grandmother Obesity pt. added direct ly (07/31) CHART_MERGE Not available 07/25/2023 08:02:49 Paternal Grandfather Obesity pt. added direct ly (07/31) CHART_MERGE Not available 07/25/2023 08:02:49 Medical History Condition Response Allergies/Hayfever N Heart Problems N None N Heart Conditions N Emphysema N Migraines N Thyroid Problems N Developmental Delay N GI Problems Y Glaucoma N Depression N Anemia Y Immune System Disorder N Anesthesia Complications N Heart Attack (NE) N Spine Problems Y Anxiety Disorder N Diabetes N Obesity Y Bleeding Disorder N Arthritis Y Hearing Loss N Tuberculosis N Acid Reflux (GERD) Y Hyperlipidemia N Cancer N Back Problems Y Stroke N Asthma N Reflux/GERD Y Sleep Disorder N GERD/Reflux N Heart Disease N Fibromyalgia N Headaches Y Hypertension Y Speech Delay N Kidney Disease N Gynecological History Statement/Question Response Abnormal Pap Y 09/14/2022 Date of Last Colonoscopy 11/10/2018 Date of LMP 10/26/2017 Sexually Active? Y Menses Monthly N Date of Last Pap Smear 06/16/2017 Current Control Method Hysterectom y Age at Menarche 12 Obstetrics History GPAL:G 0 P 0 0 0 0 Past Encounters Encounter ID Performer Location Encounter Start Date Encounter Closed Date Diagnosis/Indication Diagnosis SNOMED-CT Code Diagnosis ICD10 Code Diagnosis Note [id number] Akilah Ravi NP [facility] [address] [address] 08/03/2022 09:41:43 08/03/2022 10:32:51 Chavez's esophagus 678572395 K22.70 Increase pantoprazo le to twice daily. Repeat EGD scheduled. Dysphagia 46093782 R13.1 0 Consider globus sensation. Referral placed to ENT. Continue Singulair and Zyrtec. [id number] Lianne Cruz MD [facility] [place] [id number] 8 09/13/2022 15:03:15 09/13/2022 16:06:08 Feeling of lump in throat 812776748 F45.8 Oropharyng eal dysphagia 29023248 R13.12 [id number] Akilah Ravi NP [facility] [address] [address] 10/14/2022 11:09:26 10/14/2022 11:53:09 Chronic idiopathic constipation 98164509 K59.04 - Continue Linzess 145 mcg Epigastric pain 28824547 R10.13 - EGD 09/28/22- Continue Pantoprazo le BID- pH manometry plan to schedule. Cami aware. Iron defic iency anemia 08748764 D50.9 - Last iron infusion 07/28- SBFT ordered- plan to schedule pill cam after- Colonoscop y scheduled. Last was in 2019; however, now proctitis was noted. Reports black stool (also takes Iron supplement s) Proctitis 8899319 K62.89 - continue Linzess 145 mcg- reports history of constipati on and black stool- Colonoscop y scheduled [id number] Lianne Cruz MD [facility] [address], [facility] [place] [id number] 10/26/2022 14:17:33 10/26/2022 15:21:14 Feeling of lump in throat 698881043 F45.8 Laryngopha ryngeal reflux 519813571 K21.9 [id number] Sekou Garza MD [facility] [address] [address] 11/01/2022 10:48:52 11/01/2022 13:07:41 [id number] Nigel Li PA-C [facility] [address] [address] 12/12/2022 11:19:42 12/12/2022 13:06:22 Esophageal dysmotility 152026025 K22.4 Chronic id iopathic constipation 37498758 K59.04 History of bypass of stomach 762839583 Z98.84 Iron deficiency 09324689 E61.1 History of colonoscopy 1344465473 09 Z98.890 Feeling of lump in throat 257091667 F45.8 Chavez's esophagus 3029 86147 K22.70 Imaging of gastrointestinal tract abnormal 533890515 R93.3 [id number] Nigel Li PA-C [facility] [address] [address] 01/09/2023 10:59:54 01/09/2023 11:13:09 Esophageal dysmotility 002702750 K22.4 Chavez's esophagus 3029 25303 K22.70 History of bypass of stomach 594895831 Z98.84 Iron deficiency 27813483 E61.1 History of colonoscopy 0592367563 09 Z98.890 Feeling of lump in throat 693823739 F45.8 Imaging of gastrointestinal tract abnormal 218225336 R93.3 Irritable bowel syndrome characterized by constipation 031016895 K58.1 [id number] Nigel Li PA-C [facility] [address] [address] 03/13/2023 11:27:20 03/13/2023 12:08:35 Esophageal dysmotility 658219036 K22.4 Chavez's esophagus 3029 85465 K22.70 Ankylosing spondylitis 3484086 M45.9 History of bypass of stomach 946446212 Z98.84 Iron deficiency 52673564 E61.1 History of colonoscopy 8458479646 09 Z98.890 Feeling of lump in throat 891938438 F45.8 Imaging of gastrointestinal tract abnormal 773115824 R93.3 Irritable bowel syndrome characterized by constipation 828362660 K58.1 [id number] Sekou Garza MD [facility] [address] [facility] [address] [place] [address] 12/29/2023 09:11:36 12/29/2023 10:14:34 Chavez's esophagus 076840944 K22.70 Esophageal dysmotility 902680036 K22.4 Ankylosing spondylitis 8213679 M45.9 History of bypass of stomach 745328491 Z98.84 Iron deficiency 55916340 E61.1 History of colonoscopy 8979303769 09 Z98.890 Feeling of lump in throat 635262685 F45.8 Imaging of gastrointestinal tract abnormal 450870111 R93.3 Irritable bowel syndrome characterized by constipation 971559337 K58.1 Acid reflux 754904919 K2 1.9 History of Helicobacter pylori infection 6315844937 7350785 Z86.19 Health Concerns Section Related Observation LastModified by Organization Detai ls LastModified Time None Recorded Concern Status LastModified by Organization Details LastModified Time None Recorded Advance Directives Directive N: Payers Insurance Date Sequence Insurance Name Policy Number Policy Ayala Covered Member ID Ayala Member ID Guarantor Name 12/12/2022 1 [facility] - AETNA (POS II) [place]r [id number] [place] 07/22/2022 1 [employer] (MEDICAID REPLACEMENT - HMO) [id number] [place] [id number] [place] 07/22/2022 2 [facility] (HMO) [place] [id number] [place] 07/22/2022 2 [employer] (PPO) [place] [id number] [place] 07/22/2022 2 [employer] (POS) [place] [id number] [place] 07/22/2022 1 [employer] (MEDICARE REPLACEMENT/A DVANTAGE - PPO) [place] [id number] [place] 05/25/2024 1 AETNA [facility] (MEDICAID HMO) [place] Parr [id number] [place] Parr Notes Date Note Type Note Provider Name and Address Organization Details Recorded Time 12/12/2022 text/html Very pleasant 42-year-old female with history of Bob-en-Y gastric bypass and Chavez's esophagus presents to the office today for follow-up regarding a couple of different issues. She recently had incidental finding of possible proctitis on MRI hip. She underwent colonoscopy on 11/21/22 that was normal. She continues to have issues with constipation despite use of Linzess 145 mcg p.o. daily. She is going 3-4 days between BMs at times. This has been complicated by the need for oral iron therapy. She also has globus sensation and dysphagia that has been very bothersome to her. She reports frequent throat clearing throughout the day. She was seen by ENT who felt this was related to LPR. They increased her PPI to twice daily but her symptoms have persisted. She underwent high resolution esophageal manometry on 11/01/2022 that showed ineffective esophageal motility with 90% of swallows. Empiric dilation during EGD back in September did not improve her symptoms. Nigel iL PA-C [id number] [facility], [place], [address], [facility] [place] & [place] 12/12/2022 12:18:01 01/09/2023 text/html PREVIOUS (12/12/19): Very pleasant 42-year-old female with history of Bob-en-Y gastric bypass and Cahvez's esophagus presents to the office today for follow-up regarding a couple of different issues. She recently had incidental finding of possible proctitis on MRI hip. She underwent colonoscopy on 11/21/22 that was normal. She continues to have issues with constipation despite use of Linzess 145 mcg p.o. daily. She is going 3-4 days between BMs at times. This has been complicated by the need for oral iron therapy. She also has globus sensation and dysphagia that has been very bothersome to her. She reports frequent throat clearing throughout the day. She was seen by ENT who felt this was related to LPR. They increased her PPI to twice daily but her symptoms have persisted. She underwent high resolution esophageal manometry on 11/01/2022 that showed ineffective esophageal motility with 90% of swallows. Empiric dilation during EGD back in September did not improve her symptoms. CURRENT: Ms. Parr presents via telephonic encounter today for follow-up regarding ineffective esophageal motility and chronic constipation. Motegrity was prescribed previously, but was not covered by her insurance. She has continued Linzess 145 mcg but she feels this is not as effective as it was last year when she first started it. She continues to complain of globus sensation and dysphagia. I spent a total of 8 minutes during this real-time clinical encounter that was initiated by the patient which started at 1101 and ended at 1109. Consent was obtained to engage in telephonic service. Greater than 50% of the time spent was devoted to counseling and coordinating care including review of patient record, patient lab data and studies as well as discussing diagnostic evaluation and workup, planned therapeutic intervention and further disposition of care. Nigel Li PA-C [id number] , [place], [address], [facility] - [place] & [place] 01/09/2023 11:26:28 03/13/2023 text/html PREVIOUS (12/12/19): Very pleasant 42-year-old female with history of Bob-en-Y gastric bypass and Chavez's esophagus presents to the office today for follow-up regarding a couple of different issues. She recently had incidental finding of possible proctitis on MRI hip. She underwent colonoscopy on 11/21/22 that was normal. She continues to have issues with constipation despite use of Linzess 145 mcg p.o. daily. She is going 3-4 days between BMs at times. This has been complicated by the need for oral iron therapy. She also has globus sensation and dysphagia that has been very bothersome to her. She reports frequent throat clearing throughout the day. She was seen by ENT who felt this was related to LPR. They increased her PPI to twice daily but her symptoms have persisted. She underwent high resolution esophageal manometry on 11/01/2022 that showed ineffective esophageal motility with 90% of swallows. Empiric dilation during EGD back in September did not improve her symptoms. CURRENT (03/13/23): Ms. Parr presents via telephonic encounter today for follow-up regarding ineffective esophageal motility and chronic constipation. She is doing much better with constipation after increasing her Linzess to 290 mcg daily. She reports 1 soft BM daily. She continues to complain of globus sensation and dysphagia. She has not noticed much improvement with twice daily PPI. She is scheduled to have a Televideo consultation with the [facility] on April 20, 2023. She reports today that she has been recently diagnosed with Ankylosis Spondylitis. I spent a total of 14 minutes during this real-time clinical encounter that was initiated by the patient which started at 1128 and ended at 1142. Consent was obtained to engage in telephonic service. Greater than 50% of the time spent was devoted to counseling and coordinating care including review of patient record, patient lab data and studies as well as discussing diagnostic evaluation and workup, planned therapeutic intervention and further disposition of care. Nigel Li PA-C [id number], [place], [address], [place] - [place] - [place] & [place] 03/13/2023 20:36:39 12/29/2023 text/html PREVIOUS (12/12/19): Very pleasant 42-year-old female with history of Bob-en-Y gastric bypass and Chavez's esophagus presents to the office today for follow-up regarding a couple of different issues. She recently had incidental finding of possible proctitis on MRI hip. She underwent colonoscopy on 11/21/22 that was normal. She continues to have issues with constipation despite use of Linzess 145 mcg p.o. daily. She is going 3-4 days between BMs at times. This has been complicated by the need for oral iron therapy. She also has globus sensation and dysphagia that has been very bothersome to her. She reports frequent throat clearing throughout the day. She was seen by ENT who felt this was related to LPR. They increased her PPI to twice daily but her symptoms have persisted. She underwent high resolution esophageal manometry on 11/01/2022 that showed ineffective esophageal motility with 90% of swallows. Empiric dilation during EGD back in September did not improve her symptoms. PREVIOUS (03/13/23): Ms. Parr presents via telephonic encounter today for follow-up regarding ineffective esophageal motility and chronic constipation. She is doing much better with constipation after increasing her Linzess to 290 mcg daily. She reports 1 soft BM daily. She continues to complain of globus sensation and dysphagia. She has not noticed much improvement with twice daily PPI. She is scheduled to have a Televideo consultation with [facility] on April 20, 2023. She reports today that she has been recently diagnosed with Ankylosis Spondylitis. CURRENT (12/29/23 Pasquale Blanco): Ms. Parr presents to the clinic today for follow-up. She is currently seeing providers at the [facility] for her esophageal dysmotility. She reports she was started on buspirone which was very helpful with her throat clearing and esophageal dysmotility. She reports her communications tower technician recently started her on Cymbalta for her fibromyalgia and she was told to stop taking buspirone. [facility] started her on pyridostigmine in place of buspirone on 10/17 2023. She reports this medication has not been helpful. She also reports the Cymbalta has not been helpful. She does complain of increased acid reflux since this change. She experiences postprandial vomiting frequently. She is currently taking Nexium and pantoprazole daily. She was also recently treated for H. pylori and needs eradication testing. She denies hematemesis, hematochezia or melena. LEANN BLANCO MSN, RESULTS ENGINEER, PROMOTION MANAGER-C [id number] , [place], [address], [facility] - [place] - [place] & [place] 12/29/2023 12:55:47 OBGyn Episode No OBEpisode recorded.
--- OUTSIDE RECORDS SUMMARY | 2025-03-20 08:56 | XMS_ITS | Data Portability ---
Author Organization [place] [facility] [place] Address [address] [place] [address] Care Team Providers Care Abatement Worker Name Role Phone DEREK SKAGGS Primary Care Provider DEREK SKAGGS Referring Provider [phone] Assessment Encounter Date Assessment Date Assessment LastModified by Organization Details LastModified Time 11/27/2024 11/27/2024 This patient is a patient that we have been seeing her in our [place] office. She has been having some issues with her pump. She was on intrathecal morphine and was doing well until she had significant allergies and constipation. She has been to as well as [facility]. We have reviewed notes from both. She presents as we need to make adjustments to her pump. She has had some side effects with medications. She has also had some numbness. They did turn her bupivacaine pain pump down to minimal flow. She has had significant increase in her pain since they turned her down to minimal flow. We adjusted her back up to 2.5 mg/day of intrathecal bupivacaine today. She is had an allergy to morphine so we will plan on incorporating intrathecal Dilaudid and bupivacaine in her pump mixture. We will plan on compounding intrathecal Dilaudid 0.5 mg/mL plus bupivacaine 15 mg/mL. This will give her approximately 80 mcg/day of Dilaudid. We will plan on refilling her pump next week this will be a double catheter aspiration to get all bupivacaine out of her pump and start her with a new mixture of Dilaudid/bupivacai ne. Patient did get a random urine drug screen done today. She did have SI joint injections yesterday she has done well with these with 80% relief in her bilateral hip pain.Patient did have urine drug screen done today. abux Not available 11/27/2024 17:56:29 12/04/2024 12/04/2024 This patient had refill of her intrathecal pump today. We did add intrathecal hydromorphone to her mixture. We continued her 2.5 mg/day of intrathecal bupivacaine she did notice benefit since we increased her from her last visit. Also we have added hydromorphone at 80 mcg/day to her pump mixture. She does have antalgic gait. Motor strength of lower extremities is 5/5. There is no gross sensory deficit. Amari and drug screen are all appropriate. Her pump refill was on or before March 22, 2025. We will see her back next week for adjustments to her pump if needed. abux Not available 12/04/2024 18:51:14 12/12/2024 12/12/2024 This is a [facility] 44-year-old female that presents today for a pump adjustment. Patient does have a [employer] intrathecal pain pump in place, we have been slowly increasing her back to her maintenance. Patient is experiencing numbness of the right leg with unknown etiology, she has been following with neurosurgery who originally changed her pump to minimal flow in order to determine the cause of her symptoms. It was sent it was then determined that her pain pump is not causing her lower extremity numbness so we are gradually increasing her back to her maintenance dosage. Today patient is rating her pain a 9 out of 10, this is increased from her last visit with a pain level of 8 out of 10. When we last saw patient we did perform a pain pump refill, we did add intrathecal Dilaudid to her mixture. Patient states she had tolerated this well, she denied any side effects associated with this medication change. She does share that she did not notice much improvement in her symptom relief following this adjustment, she is hoping for further increase today. Patient also presents today with a referral from [facility] for a lumbar puncture in order to further investigate the cause of her numbness. We are currently managing her with intrathecal bupivacaine 15 mg/mL plus Dilaudid 0.5 mg/mL at a daily rate of 2.5 mg/day. Again patient denies any side effects associated with this dosage, she is requesting an increase. Amari #[id number] was reviewed and was appropriate. Conservative therapy: She has attempted at home stretching and exercise program without adequate relief in her symptoms. She reports exercising 2-3 times per week for the last 6 months without improvement. I do feel that sending patient to physical therapy would likely worsen her low back pain. 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 No significant stenosis. Plan: I am scheduling patient for a lumbar puncture to further investigate the cause of her right leg and upper extremity numbness. We do have a referral from her primary care provider for this order. We will obtain the opening and closing pressure with this diagnostic study. Patient is not prescribed chronic anticoagulation. The risk and benefits of this procedure were discussed in length with patient today and she is wishing to move forward. The results of this test will help us determine the pathology of her presenting symptoms and may lead us towards a diagnosis. I also performed a pump adjustment on this Patient, I did increase her intrathecal bupivacaine 15 mg/mL plus Dilaudid 0.5 mg/mL to a daily rate of 2.7 mg/day. Patient tolerated this change well without any complications. Patient was discharged neurovascularly intact with an antalgic gait. Patient had 5/5 motor strength in the lower extremities, no gross sensory deficits appreciated. This does update her low alarm date to March 13, 2025. We will see patient back in office for her lumbar puncture, patient instructed to contact us if she has any further questions or concerns. Dr. Jimenez has reviewed this chart and agrees with this plan of care. This note was dictated with voice recognition software and may contain errors or omission [email or web address] Not available 12/12/2024 10:12:04 12/25/2024 12/25/2024 This patient had lumbar puncture done under fluoroscopic guidance as her family practitioner ordered MS panel. We obtained CSF and we dereje blood to send off for the MS panel. This was sent to [facility]. Patient is also having some increasing pain her itching has resolved now. We increased her to 3.25 mg/day based on bupivacaine that increased her hydromorphone to 110 mcg/day. Her refill date is on or before March 01, 2025. Will see her back in 2 weeks we will assess efficacy of this increase. Will make further adjustments if needed. We will also follow-up on her CSF studies. abux Not available 12/25/2024 10:20:37 01/08/2025 01/08/2025 This patient had increase of her intrathecal bupivacaine/Dilaud id pain pump done today. She has done well with previous increases. We did increase her to 4 mg/day based on bupivacaine and 0.133 mg/day based on hydromorphone. Her refill scheduled for February 19, 2025. We also did review her CSF studies. She is going to review this with her primary care physician however the way we read it it does not indicate MSSheri I have communicated to my nurse practitioner in [place] to change her medication. At her next refill she needs to be refills with hydromorphone 1 mg/mL and bupivacaine 10 mg/mL switching to hydromorphone to be the primary drug. She can be increased to 150 mcg/day of hydromorphone while her bupivacaine will be the secondary drug. Amari and drug screen are all appropriate. abux Not available 01/08/2025 10:52:33 Plan of Treatment Reminders Order Date Submit Date Provider Last Modified By Organization Details Last Modified Time Details Appointments None recorded. Lab None recorded. Referral None recorded. Procedures lumbar puncture (PROC) 2024 025 [email or web address] Not available 14:51:35 intrathecal pump adjustment (PROC) 2024 025 [email or web address] Not available 11:05:51 intrathecal pump refill (PROC) 2024 025 [email or web address] Not available 5 07:29:13 intrathecal pump adjustment (PROC) 2024 025 [email or web address] Not available 5 07:29:27 intrathecal pump refill (PROC) 2024 025 [email or web address] Not available 5 06:45:18 Surgeries None recorded. Imaging None recorded. Medication Orders None recorded. Patient TargetsNo targets recorded. Patient Instructions Encounter Date Encounter Id Patient Instructions Last Modified By Organization Details Last Modified Time 11/27/2024 [id number] back pain: care instructions abux Not available 11/27/2024 17:51:51 learning about relief for back pain abux Not available 11/27/2024 17:51:51 Reason for Referral None Reported. Results Created Date Observation Date Name Description Value Unit Range Abnormal Flag Note LastModifiedBy Organization Detail LastModifiedTime 11/27/19 25 XR, thora cic spine No observ ation record ed. [email or web address] Not Available 2024 08:12:29 11/27/19 25 MRI, thora cic spine , w/o contr ast No observ ation record ed. [email or web address] Not Available 2024 08:18:17 11/27/19 25 MRI, lumba r spine , w/o contr ast No observ ation record ed. [email or web address] Not Available 2024 08:20:22 11/27/19 25 MRI, cervi aide spine , w/o contr ast No observ ation record ed. [email or web address] Not Available 2024 08:21:06 11/27/19 25 MRI, lumba r spine , w/o contr ast No observ ation record ed. Not Available 2024 08:22:56 11/27/19 25 MRI, cervi aide spine , w/o contr ast No observ ation record ed. Not Available 2024 08:23:51 11/27/19 25 MRI, thora cic spine , w/o contr ast No observ ation record ed. [email or web address] Not Available 2024 08:36:51 Result Notes None recorded. Problems Name Problem SNOMED Code Status Onset Date Resolution Date Notes Provider Name and Address Organization Details Recorded Time Degeneration of lumbar intervertebral disc 40333539 Active 2024 Suraj Jimenez MD [address], [address], [place] [facility] 17:51:32 Lumbar radiculopathy 936672731 Active 2024 Suraj Jimenez MD [address], [address], [place] [facility] 17:51:33 Inflammation of sacroiliac joint 24858301 Active 2024 Suraj Jimenez MD [address], [address], [place] [facility] 17:51:34 Lumbar spondylosis 555353107 Active 2024 Suraj Jimenez MD [address], [address], [place] [facility] 17:51:35 Long-term drug therapy Active 2024 Suraj Jimenez MD [address], [address], [place] [facility] 17:51:37 Caffeine-induc ed sleep disorder 00711720 Active 2024 Suraj Jimenez MD [address] [place] [address], [address], [place] [facility] 17:51:38 Problem Notes None recorded. Procedures Surgical History Date Name Laterality Status Provider Name and Address Organization Details Recorded Time 01/09/20 25 PUMP ADJUSTMENT completed Suraj Jimenez MD [address] [place] [address], [address], [place] [facility] 01/08/2025 10:51:13 12/25/19 25 PUMP ADJUSTMENT completed Suraj Jimenez MD [address], [address], [place] [facility] 12/25/2024 10:18:32 12/25/19 25 Lumbar puncture completed Suraj Jimenez MD [address], [address], [place] [facility] 12/25/2024 10:14:47 12/12/19 25 PUMP ADJUSTMENT completed DARREL MYERS [address], [address], [place] [facility] 12/12/2024 10:13:04 12/04/19 25 Pump Refill completed Suraj Jimenez MD [address], [address], [place] [facility] 12/04/2024 18:50:29 11/27/19 25 PUMP ADJUSTMENT completed Suraj Jimenez MD [address] [facility],[place] [address], [place], [address], [place] [facility] 11/27/2024 17:55:44 Appendectomy completed ELHAM CALERO [place] [facility] 11/26/2024 08:34:13 cholecystectomy completed ELHAM CALERO [place] [facility] 11/26/2024 08:34:20 Gastric bypass for obesity completed ELHAM CALERO [place] [facility] 11/26/2024 08:34:30 hysterectomy completed ELHAM CALERO [place] [facility] 11/26/2024 08:34:37 implantation of intrathecal implantable infusion pump completed ELHAM CALERO [place] [facility] 11/26/2024 08:35:07 tonsillectomy completed ELHAM CALERO [place] [facility] 11/26/2024 08:35:15 Imaging Results Imaging Date Name Status LastModified by Organiz ation Details LastModified Time 11/27/2024 XR, thoracic spine completed [email or web address] Information not available 11/27/2024 08:12:29 11/27/2024 MRI, thoracic spine, w/o contrast completed [email or web address] Information not available 11/27/2024 08:18:17 11/27/2024 MRI, lumbar spine, w/o contrast completed [email or web address] Information not available 11/27/2024 08:20:22 11/27/2024 MRI, cervical spine, w/o contrast completed [email or web address] Information not available 11/27/2024 08:21:06 11/27/2024 MRI, lumbar spine, w/o contrast completed [email or web address] Information not available 11/27/2024 08:22:56 11/27/2024 MRI, cervical spine, w/o contrast completed [email or web address] Information not available 11/27/2024 08:23:51 11/27/2024 MRI, thoracic spine, w/o contrast completed Information not available 11/27/2024 08:36:51 Procedure Notes None recorded. Medical Equipment None Reported. Allergies Allergen ID Allergen Name Allergen Category Reaction Reaction Severity Criticality Documentation Date Start Date Code Code System Note Provider Name and Address Organization Details Recorded Time 6400 Ceclor medicatio n Not available Not available Not available 11/26/202427780 5 RxNorm ELHAM CALERO null, [place] [facility] 5 06:59:38 6401 Product containin g penicilli n (product) medicatio n Not available Not available Not available 11/26/2024 50116 8001 SNOMED ELHAM CALERO null, [place] [facility] 5 06:59:43 6402 amlodipin e medicatio n Not available Not available Not available 11/26/2024 80726 RxNorm ELHAM CALERO null, [place] [facility] 5 07:03:04 6403 trazodone medicatio n Not available Not available Not available 11/26/2024 02630 RxNorm ELHAM CALERO null, [place] [facility] 5 07:03:08 6404 cefaclor medicatio n Not available Not available Not available 11/26/2024 2176 RxNorm ELHAM CALERO null, [place] [facility] 5 07:03:33 6405 Medicinal product containin g cephalosp dale and acting as antibacte rial agent (product) medicatio n Not available Not available Not available 11/26/2024 43167 9009 SNOMED ELHAM CALERO null, [place] [facility] 5 07:03:47 Medications Name Sig Start Date Stop Date Status Note LastModified by Organization Details LastModified Time bupivacaine 15/dilaudid 0.5 dispense 20 ml to infuse through intrathec al pump 2024 active Not Available Not Available Not Avai lable losartan 50 mg tablet active Not Available Not Available No t Available cyclobenzap rine 10 mg tablet active Not Available Not Available Not Available methocarbam ol 500 mg tablet active Not Available Not Available Not Available cyanocobala min (vit B-12) ER 1,000 mcg tablet,exte nded release active Not Available Not Available Not Available promethazin e-DM 6.25 mg-15 mg/5 mL oral syrup TAKE 5 ML BY MOUTH EVERY 6 HOURS FOR 10 DAYS NEEDED FOR COUGH 11/26 completed Not Available Not Available Not Available carvedilol 25 mg tablet active Not Available Not Available Not Available sulfasalazi ne 500 mg tablet Take 3 tablets twice a day by oral route as needed. active Not Available Not Available No t Available tizanidine 2 mg tablet active Not Available Not Available Not Available Stool Softener 100 mg capsule active Not Available Not Available Not Available azithromyci n 250 mg tablet 11/26 completed Not Available Not Available Not Available ibuprofen 800 mg tablet active Not Available Not Available Not Available tizanidine 4 mg tablet Take 1 tablet every 6 hours by oral route. active Not Available Not Available No t Available hydrocodone 5 mg-acetamin ophen 325 mg tablet active Not Available Not Available No t Available lisinopril 20 mg tablet active Not Available Not Available Not Available ondansetron HCl 4 mg tablet 11/26 completed Not Available Not Available Not Available prednisone 20 mg tablet 11/26 completed Not Available Not Available Not Available prednisone 5 mg tablet active Not Available Not Available Not Available sulfasalazi ne 500 mg tablet,yolis yed release active Not Available Not Available Not Available cyanocobala min (vit B-12) 1,000 mcg tablet active Not Available Not Available N ot Available sulfamethox azole 800 mg-trimetho prim 160 mg tablet active Not Available Not Available Not Available Reglan 10 mg tablet Take 1 tablet 4 times a day by oral route. active Not Available Not Available No t Available aspirin 81 mg tablet,yolis yed release active Not Available Not Available Not Available tramadol 50 mg tablet 11/26 completed Not Available Not Available Not Available spironolact one 25 mg tablet Take 1 tablet every day by oral route. active Not Available Not Available No t Available bethanechol chloride 25 mg tablet active Not Available Not Available No t Available meloxicam 7.5 mg tablet active Not Available Not Available Not Available calcium 500 mg (as calcium carbonate 1,250 mg) tablet active Not Available Not Available Not Available baclofen 10 mg tablet active Not Available Not Available No t Available doxycycline monohydrate 100 mg capsule 11/26 completed Not Available Not Available Not Available hydrocodone 7.5 mg-acetamin ophen 325 mg tablet TAKE 1 TABLET BY MOUTH EVERY 4 TO 6 HOURS NEEDED FOR PAIN 11/26 completed Not Available Not Available Not Available bisacodyl 10 mg rectal suppository active Not Available Not Available Not Available pantoprazol e 40 mg tablet,yolis yed release Take 1 tablet every day by oral route. active Not Available Not Available No t Available esomeprazol e magnesium 40 mg capsule,del ayed release active Not Available Not Available Not Available pyridostigm ine bromide 60 mg tablet active Not Available Not Available Not Available lisinopril 10 mg tablet active Not Available Not Available Not Available gabapentin 300 mg capsule 11/26 completed Not Available Not Available Not Available magnesium citrate oral solution 11/26 completed Not Available Not Available Not Available folic acid 1 mg tablet active Not Available Not Available Not Available montelukast 10 mg tablet active Not Available Not Available Not Available hydrochloro thiazide 25 mg tablet active Not Available Not Available No t Available mupirocin 2 % topical ointment 11/26 completed Not Available Not Available Not Available zolpidem 5 mg tablet active Not Available Not Available No t Available gabapentin 100 mg capsule 11/26 completed Not Available Not Available Not Available azelastine 137 mcg (0.1 %) nasal spray active Not Available Not Available Not Available albuterol sulfate HFA 90 mcg/actuati on aerosol inhaler active Not Available Not Available Not Available ferrous sulfate 325 mg (65 mg iron) tablet,yolis yed release active Not Available Not Available Not Available cholecalcif brandy (vitamin D3) 125 mcg (5,000 unit) capsule active Not Available Not Available Not Available ipratropium bromide 21 mcg (0.03 %) nasal spray active Not Available Not Available Not Available loratadine 10 mg tablet active Not Available Not Available Not Available oxycodone 5 mg tablet 11/26 completed Not Available Not Available Not Available Senna Plus 8.6 mg-50 mg tablet active Not Available Not Available No t Available duloxetine 60 mg capsule,del ayed release active Not Available Not Available Not Available Pain Relief Extra Strength (acetaminop hen) 500 mg tablet active Not Available Not Available Not Available pregabalin 200 mg capsule Take 1 capsule twice a day by oral route. active Not Available Not Available No t Available lubiproston e 24 mcg capsule active Not Available Not Available Not Available Humira Pen 40 mg/0.8 mL subcutaneou s kit Inject 0.8 mL every 2 weeks by subcutane ous route. active Not Available Not Available No t Available ferrous sulfate 324 mg (65 mg iron) tablet,yolis yed release active Not Available Not Available Not Available FeroSul 325 mg (65 mg iron) tablet active Not Available Not Available Not Available levocetiriz ine 5 mg tablet Take 1 tablet every day by oral route. active Not Available Not Available No t Available nebivolol 5 mg tablet active Not Available Not Available No t Available cholecalcif brandy (vitamin D3) 50 mcg (2,000 unit) capsule active Not Available Not Available Not Available cholecalcif brandy (vitamin D3) 50 mcg (2,000 unit) tablet active Not Available Not Available Not Available Oyster Shell Calcium-Vit roman D3 500 mg-10 mcg (400 unit) tablet active Not Available Not Available Not Available cholecalcif brandy (vitamin D3) 125 mcg (5,000 unit) tablet active Not Available Not Available Not Available ClearLax 17 gram/dose oral powder 11/26 completed Not Available Not Available Not Available Dymista 137 mcg-50 mcg/spray nasal spray active Not Available Not Available Not Available Linzess 290 mcg capsule Take 1 capsule every day by oral route. active Not Available Not Available No t Available Rinvoq 15 mg tablet,exte nded release active Not Available Not Available Not Available Tab-A-Felipe Multivitami n w-iron 18 mg-400 mcg tablet active Not Available Not Available Not Available Tab-A-Felipe Multivitami n w-iron 15 mg iron-400 mcg tablet active Not Available Not Available N ot Available Vitals Date Recorded Body height Body mass index (BMI) Body weight Oxygen saturation Oxygen saturation in Arterial blood by Pulse oximetry Heart rate Pain severity - 0-10 verbal numeric rating [Score] - Reported Systolic blood pressure Diastolic blood pressure Provider Name and Address Organization Details Last Updated DateTime 5 165.1 cm 45.4 kg/m2 156191. 72 g 99 % 99 % 88 /min 8 118 mm[Hg] 86 mm[Hg] ELHAM CALERO [place] [facility] 5 13:40:44 Date Recorded Body height Body mass index (BMI) Body weight Oxygen saturation Oxygen saturation in Arterial blood by Pulse oximetry Heart rate Pain severity - 0-10 verbal numeric rating [Score] - Reported Systolic blood pressure Diastolic blood pressure Provider Name and Address Organization Details Last Updated DateTime 5 165.1 cm 45.4 kg/m2 207785. 72 g 99 % 99 % 86 /min 8 118 mm[Hg] 86 mm[Hg] ELHAM CALERO [place] [facility] 5 12:05:46 Date Recorded Body height Heart rate Body mass index (BMI) Body weight Oxygen saturation Oxygen saturation in Arterial blood by Pulse oximetry Pain severity - 0-10 verbal numeric rating [Score] - Reported Systolic blood pressure Diastolic blood pressure Provider Name and Address Organization Details Last Updated DateTime 5 165.1 cm 86 /min 45.4 kg/m2 668807. 72 g 99 % 99 % 9 118 mm[Hg] 86 mm[Hg] ELHAM CALERO [place] [facility] 5 09:49:25 Date Recorded Body height Body mass index (BMI) Body weight Oxygen saturation Oxygen saturation in Arterial blood by Pulse oximetry Heart rate Systolic blood pressure Diastolic blood pressure Provider Name and Address Organization Details Last Updated DateTime 5 165.1 cm 45.4 kg/m2 354027. 72 g 99 % 99 % 84 /min 118 mm[Hg] 86 mm[Hg] ELHAM CLAIRE - [facility] 5 08:22:33 Date Recorded Body height Body mass index (BMI) Body weight Heart rate Oxygen saturation Oxygen saturation in Arterial blood by Pulse oximetry Pain severity - 0-10 verbal numeric rating [Score] - Reported Systolic blood pressure Diastolic blood pressure Provider Name and Address Organization Details Last Updated DateTime 5 165.1 cm 45.4 kg/m2 388470. 72 g 82 /min 99 % 99 % 7 118 mm[Hg] 78 mm[Hg] ELHAM CLAIRE - [facility] 5 09:56:09 Social History Question Answer Notes LastModified by Organizat ion Details LastModified Time Tobacco Smoking Status Never Smoker ELHAM zhou, [place] - [facility] 11/26/2024 08:35:43 In The 14 Days Before Symptom Onset, Have You Had Close Contact With A Laboratory-confirm ed COVID-19 While That Case Was Ill? No [email or web address] Information n ot available 11/26/2024 In The 14 Days Before Symptom Onset, Have You Had Close Contact With A Person Who Is Under Investigation For COVID-19 While That Person Was Ill? No Information not available 11/26/2024 Have You Been To An Area Known To Be High Risk For COVID-19? No [email or web address] Information not available 11/26/2024 Sex: Female Functional Status Question Answer Note LastModified by Organizat ion Details LastModified Time Do you use any illicit or recreational drugs? No [email or web address] Information not available 11/26/2024 Do you or have you ever used any other forms of tobacco or nicotine? No Information not available 11/26/2024 What is your level of alcohol consumption? None Information not available 11/26/2024 Mental Status None recorded. Family History Nothing Reported. Medical History Condition Response Coronary Artery Disease N Gout N Head Trauma/Injury N Hernia N Depression N COPD N Anxiety Disorder N Arthritis Y Acid Reflux (GERD) Y Cancer N Stroke N Back Injury N High Cholesterol N Liver Disease N Fibromyalgia Y Headaches N Kidney Disease N Thyroid Problems N Anemia N Heart Attack ([place]) N Ulcers N Diabetes N Bleeding Disorder N Tuberculosis N AIDS/HIV N Asthma Y Substance Abuse N Hepatitis Y Heart Disease N Hypertension Y Osteoporosis N Gynecological HistoryNo gynecological history recorded. 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 [id number] Suraj Jimenez MD [address] [place] [address] 12/04/2024 11:04:30 12/04/2024 13:06:12 Lumbar radiculopathy 492717789 M54.16 Lumbar spondylosis 34850 0009 M47.896 Degenerati on of lumbar intervertebral disc 34366679 M51.369 Inflammati on of sacroiliac joint 07598160 M46.1 Long-term drug therapy 717886393 Z79.891 Caffeine-i nduced sleep disorder 85351266 F15.982 [id number] DARREL MYERS [address] [place] [address] 12/12/2024 09:48:12 12/12/2024 10:12:57 Lumbar spondylosis 996424503 M47.896 Degenerati on of lumbar intervertebral disc 18198785 M51.369 Long-term drug therapy 529256891 Z79.891 Inflammati on of sacroiliac joint 00717773 M46.1 Compressio n of cauda equina 1117950398 0658936 G83.4 [id number] Suraj Jimenez MD [address] [place] [address] 12/25/2024 08:18:08 12/25/2024 10:10:06 Lumbar radiculopathy 047883765 M54.16 Degenerati on of lumbar intervertebral disc 52789624 M51.369 Lumbar spondylosis 14502 0009 M47.896 Long-term drug therapy 607193235 Z79.891 Inflammati on of sacroiliac joint 52868351 M46.1 Caffeine-i nduced sleep disorder 89482076 F15.982 [id number] Suraj Jimenez MD [address] [place] [address] 01/08/2025 09:40:53 01/08/2025 10:27:42 Lumbar radiculopathy 702509167 M54.16 Lumbar spondylosis 15527 0009 M47.896 Degenerati on of lumbar intervertebral disc 77697082 M51.369 Long-term drug therapy 977359595 Z79.891 Caffeine-i nduced sleep disorder 64839569 F15.982 Inflammati on of sacroiliac joint 09993353 M46.1 Health Concerns Section Related Observation LastModified by Organization Detai ls LastModified Time None Recorded Concern Status LastModified by Organization Details LastModified Time None Recorded Advance Directives Directive None Recorded Payers Encounter Date Sequence Insurance Name Policy Number Policy Ayala Covered Member ID Ayala Member ID Guarantor Name 11/27/2024 1 [employer] [facility] (MEDICAID HMO) [place] [id number] [place] 12/04/2024 1 [employer] [facility] [place] [id number] [place] 12/12/2024 1 [employer] [facility] [place] H[place] [id number] [place] 12/25/2024 1 [employer] [facility] (MED[place] HMO[place] [id number] [place] 01/08/2025 1 [employer] [facility] (MEDICAID HMO) [place] [id number] [place] Notes Date Note Type Note Provider Name and Address Organization Details Recorded Time 11/27/2024 text/html Back PainReporte d bypatient.Location: lumbar;pain radiating to the legs Quality:sharp;achin g;constant Severity:pain level 8/10 Duration:chronic Context:trauma Alleviating Factors:rest Aggravating Factors:movement/po sitioning; twisting; flexing back; extending back; worse at night; lifting; housework; walking; standing; sitting; weather Associated Symptoms:no fever; no incontinence; no shortness of breath; no unintentional weight loss; no chills; no night sweats; no gait instability; no bowel/bladder symptoms; no recent increase in stress;weak limbs;numbness of the legs/feet;tingling Prior Imaging:MRI; X-ray Suraj Jimenez MD [address], [address], [facility] 11/27/2024 17:56:48 12/04/2024 text/html Back PainReporte d bypatient.Location: lumbar;pain radiating to the legs Quality:sharp;achin g;constant Severity:pain level 8/10 Duration:chronic Context:trauma Alleviating Factors:rest Aggravating Factors:movement/po sitioning; twisting; flexing back; extending back; worse at night; lifting; housework; walking; standing; sitting; weather Associated Symptoms:no fever; no incontinence; no shortness of breath; no unintentional weight loss; no chills; no night sweats; no gait instability; no bowel/bladder symptoms; no recent increase in stress;weak limbs;numbness of the legs/feet;tingling Prior Imaging:MRI; X-ray Suraj Jimenez MD [address], [address], [facility] 12/04/2024 18:51:52 12/12/2024 text/html Back PainReporte d bypatient.Location: lumbar;pain radiating to the legs Quality:sharp;achin g;constant Severity:pain level 9/10;severe (8-10) Duration:chronic Context:trauma Alleviating Factors:rest Aggravating Factors:movement/po sitioning; twisting; flexing back; extending back; worse at night; lifting; housework; walking; standing; sitting; weather Associated Symptoms:no fever; no incontinence; no shortness of breath; no unintentional weight loss; no chills; no night sweats; no gait instability; no bowel/bladder symptoms; no recent increase in stress;weak limbs;numbness of the legs/feet;tingling Prior Imaging:MRI; X-ray DARREL MYERS [address], [address], [facility] 12/12/2024 10:13:25 12/25/2024 text/html Back PainReporte d bypatient.Location: lumbar;pain radiating to the legs Quality:sharp;achin g;constant Severity:pain level 9/10;severe (8-10) Duration:chronic Context:trauma Alleviating Factors:rest Aggravating Factors:movement/po sitioning; twisting; flexing back; extending back; worse at night; lifting; housework; walking; standing; sitting; weather Associated Symptoms:no fever; no incontinence; no shortness of breath; no unintentional weight loss; no chills; no night sweats; no gait instability; no bowel/bladder symptoms; no recent increase in stress;weak limbs;numbness of the legs/feet;tingling Prior Imaging:MRI; X-ray Suraj Jimenez MD [address], [address], [place] [facility] 12/25/2024 10:25:13 01/08/2025 text/html Back PainReporte d bypatient.Location: lumbar;pain radiating to the legs Quality:sharp;achin g;constant Severity:pain level 9/10;severe (8-10) Duration:chronic Context:trauma Alleviating Factors:rest Aggravating Factors:movement/po sitioning; twisting; flexing back; extending back; worse at night; lifting; housework; walking; standing; sitting; weather Associated Symptoms:no fever; no incontinence; no shortness of breath; no unintentional weight loss; no chills; no night sweats; no gait instability; no bowel/bladder symptoms; no recent increase in stress;weak limbs;numbness of the legs/feet;tingling Prior Imaging:MRI; X-ray Suraj Jimenez MD [address], [address], [place] [facility] 01/08/2025 10:53:25 OBGyn Episode No OBEpisode recorded.
[2025-03-20 09:30] VITALS: BP 117/79; PULSE 78; RESP 14; O2SAT 99; BMI 44.9
--- NOTE | 2025-03-20 09:40 | EXP.PAIN.PRO ---
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 She rates her pain today as 6 out of 10. She denies any new trauma or injury. She does state that her last pump adjustment did just seem to help a little and denies any side effects. Patient denies any urinary retention, constipation or worsening numbness and tingling into her legs. Patient has continued to have issues with numbness into her upper thighs that was initially more on the right side but has now affected her left leg and today is stating even into her groin. Patient has seen multiple specialties for this pain and we have done injections however have not noticed significant improvement with this. Patient is currently managed with Dilaudid 1 mg/mL with a daily dose of 0.2078 mg/day and bupivacaine 15 mg/mL with a daily dose of 3.117 mg/day. She denies any side effects. Her Amari has been reviewed and is appropriate. Physical Exam: General: Alert and oriented x3, no acute distress, pleasant and cooperative Lungs: Respirations even and unlabored, symmetrical chest expansion Eyes: PERRL Musculoskeletal: Flexion and extension of lumbar [spine] somewhat guarded secondary to pain, [antalgic gait noted] Neurological: Speech clear, no gross sensory deficit Procedure Details:: Informed consent was obtained and the risk and benefits of the procedure were explained to the patient. Patient did have noninvasive monitoring was placed including noninvasive blood pressure cuff and pulse oximeter. Patient's pump was interrogated and was reprogrammed to Dilaudid 0.2704 mg/day and bupivacaine 4.055 mg/day. The patient tolerated the procedure well with no complications. Plan and Disposition:: Patient tolerated the procedure well with no complications and was discharged neurologically intact. We did again make a 30% increase today. Patient was counseled if she has any worsening symptoms she is to return to our office or immediately call us. Patient acknowledges understanding agrees with this plan of care. Dr. Jimenez is aware of the larger increases and this has been at his discretion. Patient will be given a tentative 3-week follow-up and also given a appointment date for her next pump refill. We did discuss today due to the increased groin pain that her symptoms do still seem very consistent with sacroiliitis however in the past we have done these injections and they have helped but did nothing for the numbness itself. Patient was counseled that this may still be another option that we could again try this injection. We will follow-up with this at future visits. I did also discuss with the patient regarding the possibility of following up with gynecology related to the increased groin or vaginal pain/pressure.Patient states that she has not seen them for approximately [address] Ulrich here at [facility]. Will continue to follow-up regarding this option. Patient has been seen by multiple specialist including neurosurgery, neurology, etc. Patient has still never been given an official diagnosis of what is causing her increased numbness. We have ruled out that the pump is causing any additional effects as we have brought this down to very minimal flow and it made no additional improvement in her numbness however did have worsening pain symptoms related to the dosage change. Patient will return to clinic on or before their next intrathecal refill date. We will see the patient back in the clinic at the next intrathecal refill. Patient has been instructed to contact the clinic with any concerns before the next appointment. Dr. Jimenez has reviewed this note and agrees with this plan of care. This note was dictated using voice recognition software and make contain errors or omissions. -- It Is medically necessary for this patient to continue to have their intrathecal pump refilled at regular intervals. This patient had an intrathecal pain pump implanted after meeting criteria of chronic intractable pain for greater than 3 months and failing conservative treatments. Patient has committed and been compliant to the treatment plan and all planned follow up care. Since implantation of the intrathecal pain pump, the patient has had decreased pain and been more functional. Oral medications have been reduced including intake of oral opioids. Patient continues to do well with intrathecal therapy with decrease in pain symptoms and increase in functional status. Stopping intrathecal medications can lead to life threatening withdrawal, seizures, cardiac arrest, severe pain, and possible . Pumps that are not refilled at regular intervals can be damages and cause and need for replacement. We continually titrate dose and concentration to optimize pain relief and function. We are limited in concentration for certain drugs to safely deliver medications through the pump and stay within the recommendations from the Polyanalges[employer] Consensus Committee Guidelines. Depending on dose and concentration these pumps may need to be refilled sooner than 3 months as we titrate. A UDS is needed to verify patient's compliance with our office pain contract. This is ordered based off specific treatments related to chronic pain with the potential to abuse certain medications.
== END 2025-03-20 23:59 | disposition home or self-care (01) ==
PROVIDERS: PCP Nurse Practitioner Family; Visit Provider Nurse Practitioner Family
DX: G89.4 Chronic pain syndrome (principal); M51.16 Intervertebral disc disorders with radiculopathy, lumbar region; M46.1 Sacroiliitis, not elsewhere classified
CPT/HCPCS: 62368; 99212; 99213; G0463

== ENCOUNTER 2025-04-09 09:04 | Outpatient (POV) | payer OTHER, SELFPAY ==
--- OUTSIDE RECORDS SUMMARY | 2025-04-09 09:08 | XMS_ITS | Data Portability ---
Author Organization [place] [facility] Address [address] [place] [address] Care Team Providers Care Supervisor [employer] Name Role Phone DEREK SKAGGS Primary Care Provider [phone] DEREK SKAGGS Referring Provider [phone] Assessment Encounter Date Assessment Date Assessment LastModified by Organization Details LastModified Time 11/27/2024 11/27/2024 This patient is a patient that we have been seeing her in our [place] office. She has been having some issues with her pump. She was on intrathecal morphine and was doing well until she had significant allergies and constipation. She has been to as well as [facility]. We have reviewed notes from both. [...] 12/04/2024 18:51:14 12/12/2024 12/12/2024 This is a [facility] 44-year-old female that presents today for [...] also presents today with a referral from [facility] for a lumbar puncture in order to further investigate the cause of her numbness. We are currently managing her with intrathecal bupivacaine 15 mg/mL plus Dilaudid 0.5 mg/mL at a daily rate of 2.5 mg/day. Again patient denies any side effects associated with this dosage, she is requesting an increase. Amari #[id number] was reviewed and was appropriate. Conservative therapy: [...] have communicated to my nurse practitioner in [place] to change her medication. At her next refill she needs to be refills with hydromorphone 1 mg/mL and bupivacaine 10 mg/mL switching to hydromorphone to be the primary drug. She can be increased to 150 mcg/day of hydromorphone while her bupivacaine will be the secondary drug. Amrai and drug screen are all appropriate. [facility]ux [...] By Organization Details Last Modified Time 11/27/2024 [id number] back pain: care instructions [facility] Not available 11/27/2024 17:51:51 learning about relief for back pain [facility] Not available 11/27/2024 17:51:51 Reason for Referral None Reported. Results Created Date Observation Date Name Description Value Unit Range Abnormal Flag Note LastModifiedBy Organization Detail LastModifiedTime 11/27/19 25 XR, thora cic spine No observ ation record ed. Not Available 2024 08:12:29 11/27/19 25 MRI, thora cic spine , w/o contr ast No observ ation record ed. [email or web address] Not Available 2024 08:18:17 11/27/19 25 MRI, lumba r spine , w/o contr ast No observ ation record ed. [email or web address] Not Available 2024 08:20:22 11/27/19 25 MRI, cervi aide spine , w/o contr ast No observ ation record ed. [email or web address] Not Available 2024 08:21:06 11/27/19 25 MRI, lumba r spine , w/o contr ast No observ ation record ed. [email or web address] Not Available 2024 08:22:56 11/27/19 25 MRI, cervi aide spine , w/o contr ast No observ ation record ed. [email or web address] Not Available 2024 08:23:51 11/27/19 25 MRI, thora cic spine , w/o contr ast No observ ation record ed. [email or web address] Not Available 2024 08:36:51 Result Notes None recorded. Problems Name Problem SNOMED Code Status Onset Date Resolution Date Notes Provider Name and Address Organization Details Recorded Time Degeneration of lumbar intervertebral disc 29334687 Active 2024 Suraj Jimenez MD [address], [address], [place] [facility] 17:51:32 Lumbar radiculopathy 381336917 Active 2024 Suraj Jimenez MD [address], [address], [place] [facility] 17:51:33 Inflammation of sacroiliac joint 92668146 Active 2024 Suraj Jimenez MD [address], [address], [place] [facility] 17:51:34 Lumbar spondylosis 148508795 Active 2024 Suraj Jimenez MD [address], [address], [place] [facility] 17:51:35 Long-term drug therapy Active 2024 Suraj Jimenez MD [address], [address], [place] [facility] 17:51:37 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 Procedures Surgical History Date Name Laterality Status Provider Name and Address Organization Details Recorded Time 01/09/20 25 PUMP ADJUSTMENT completed Suraj Jimeenz MD [address] [place] [address], [address], [place] [facility] 01/08/2025 10:51:13 12/25/19 25 PUMP ADJUSTMENT completed Suraj Jimenez MD [address], [address], [place] [facility] 12/25/2024 10:18:32 12/25/19 25 Lumbar puncture completed Suraj Jimenez MD [address], [address], [place] [facility] 12/25/2024 10:14:47 12/12/19 25 PUMP ADJUSTMENT completed DARREL MYERS [address], [address], [place] [facility] 12/12/2024 10:13:04 12/04/19 25 Pump Refill completed Suraj Jimenez MD [address], [address], [place] [facility] 12/04/2024 18:50:29 11/27/19 25 PUMP ADJUSTMENT completed Suraj Jimenez MD [address] [facility] [address], [place], [address], [place] [facility] 11/27/2024 17:55:44 [...] [facility] 11/26/2024 08:35:15 Imaging Results None recorded. Procedure Notes None recorded. Medical Equipment None Reported. Allergies Allergen ID Allergen Name Allergen Category Reaction Reaction Severity Criticality Documentation Date Start Date Code Code System Note Provider Name and Address Organization Details Recorded Time 6400 Ceclor medicatio n Not available Not available Not available 11/26/202424931 5 RxNorm ELHAM CALERO null, [place] [facility] 5 06:59:38 6401 Product containin g penicilli n (product) medicatio n Not available Not available Not available 11/26/2024 61439 8001 SNOMED ELHAM CALERO null, [place] [facility] 5 06:59:43 6402 amlodipin e medicatio n Not available Not available Not available 11/26/2024 93010 RxNorm ELHAM CALERO null, [place] [facility] 5 07:03:04 6403 trazodone medicatio n Not available Not available Not available 11/26/2024 22212 RxNorm ELHAM CALERO null, [place] [facility] 5 07:03:08 6404 cefaclor medicatio n Not available Not available Not available 11/26/2024 2176 RxNorm ELHAM CALERO null, [place] [facility] 5 07:03:33 6405 Medicinal product containin g cephalosp dale and acting as antibacte rial agent (product) medicatio n Not available Not available Not available 11/26/2024 63705 9009 SNOMED ELHAM CALERO null, [place] - [...] Updated DateTime 5 165.1 cm 45.4 kg/m2 514696. 72 g 99 % 99 % 88 /min 118 mm[Hg] 86 mm[Hg] ELHAM CALERO [place] [facility] 5 13:40:44 Date Recorded Body height Body mass index (BMI) Body weight Oxygen saturation Oxygen saturation in Arterial blood by Pulse oximetry Heart rate Systolic blood pressure Diastolic blood pressure Provider Name and Address Organization Details Last Updated DateTime 5 165.1 cm 45.4 kg/m2 477591. 72 g 99 % 99 % 86 /min 118 mm[Hg] 86 mm[Hg] ELHAM CALERO [place] [facility] 5 12:05:46 Date Recorded Body height Heart rate Body mass index (BMI) Body weight Oxygen saturation Oxygen saturation in Arterial blood by Pulse oximetry Systolic blood pressure Diastolic blood pressure Provider Name and Address Organization Details Last Updated DateTime 5 165.1 cm 86 /min 45.4 kg/m2 142299. 72 g 99 % 99 % 118 mm[Hg] 86 mm[Hg] ELHAM CALERO [place] [facility] 5 09:49:25 Date Recorded Body height Body mass index (BMI) Body weight Oxygen saturation Oxygen saturation in Arterial blood by Pulse oximetry Heart rate Systolic blood pressure Diastolic blood pressure Provider Name and Address Organization Details Last Updated DateTime 5 165.1 cm 45.4 kg/m2 074814. 72 g 99 % 99 % 84 /min 118 mm[Hg] 86 mm[Hg] ELHAM CALERO [place] [facility] 5 08:22:33 Date Recorded Body height Body mass index (BMI) Body weight Heart rate Oxygen saturation Oxygen saturation in Arterial blood by Pulse oximetry Systolic blood pressure Diastolic blood pressure Provider Name and Address Organization Details Last Updated DateTime 5 165.1 cm 45.4 kg/m2 962924. 72 g 82 /min 99 % 99 % 118 mm[Hg] 78 mm[Hg] ELHAM CLAIRE - [facility] 5 09:56:09 Social History Question Answer Notes LastModified by [employer] Details LastModified Time Tobacco Smoking Status Never Smoker ELHAM zhou, [place] - [facility] 11/26/2024 08:35:43 In The 14 Days Before Symptom Onset, Have You Had Close Contact With A Laboratory-confirm ed COVID-19 While That Case Was Ill? No [email or web address] Information n ot available 11/26/2024 In The 14 Days Before Symptom Onset, Have You Had Close Contact With A Person Who Is Under Investigation For COVID-19 While That Person Was Ill? No Information not available 11/26/2024 Have You Been To An Area Known To Be High Risk For COVID-19? No [email or web address] Information not available 11/26/2024 Sex: Female Functional Status Question Answer Note LastModified by [employer] Details LastModified Time Do you use any illicit or recreational drugs? No [email or web address] Information not available 11/26/2024 Do you or have you ever used any other forms of tobacco or nicotine? No Information not available 11/26/2024 What is your level of alcohol consumption? None [email or web address] Information not available 11/26/2024 Mental Status None recorded. Family History Nothing Reported. Medical History Condition Response Coronary Artery Disease N Gout N Hernia N Head Trauma/Injury N Thyroid Problems N Depression N COPD N Anemia N Heart Attack ([place]) N Ulcers N Diabetes N Anxiety Disorder N Bleeding Disorder N Arthritis Y Tuberculosis N AIDS/HIV N Acid Reflux (GERD) Y Cancer N Stroke N Asthma Y Substance Abuse N Back Injury N High Cholesterol N Hepatitis Y Liver Disease N Heart Disease N Headaches N Fibromyalgia Y Hypertension Y Osteoporosis N Kidney Disease N Gynecological HistoryNo gynecological history recorded. Obstetrics History GPAL:G 0 P 0 0 0 0 Past Encounters Encounter ID Performer Location Encounter Start Date Encounter Closed Date Diagnosis/Indication Diagnosis SNOMED-CT Code Diagnosis ICD10 Code Diagnosis Note [id number] Suraj Jimenez MD [address] [place] [address] 11/27/2024 13:23:29 11/27/2024 14:53:07 Degeneration of lumbar intervertebral disc 23879559 M51.369 Lumbar radiculopathy 128 356823 M54.16 Inflammati on of sacroiliac joint 21193806 M46.1 Lumbar spondylosis 49268 0009 M47.896 Long-term drug therapy 269697925 Z79.891 Caffeine-i nduced sleep disorder 62598319 F15.982 [id number] Suraj Jimenez MD [facility] [address] [place] [address] [place] [address] 12/04/2024 11:04:30 12/04/2024 13:06:12 Lumbar radiculopathy 437524532 M54.16 Lumbar spondylosis 46548 0009 M47.896 Degenerati on of lumbar intervertebral disc 53753920 M51.369 Inflammati on of sacroiliac joint 03656771 M46.1 Long-term drug therapy 191428577 Z79.891 Caffeine-i nduced sleep disorder 17518514 F15.982 [id number] DARREL MYERS [facility] [address] [place] [address] 12/12/2024 09:48:12 12/12/2024 10:12:57 Lumbar spondylosis 044529862 M47.896 Degenerati on of lumbar intervertebral disc 32997590 M51.369 Long-term drug therapy 263258675 Z79.891 Inflammati on of sacroiliac joint 96339437 M46.1 Compressio n of cauda equina 8104632006 1235490 G83.4 [id number] Suraj Jimenez MD [place] [facility] [facility] [place] [address] 12/25/2024 08:18:08 12/25/2024 10:10:06 Lumbar radiculopathy 937585761 M54.16 Degenerati on of lumbar intervertebral disc 28521578 M51.369 Lumbar spondylosis 30963 0009 M47.896 Long-term drug therapy 696880063 Z79.891 Inflammati on of sacroiliac joint 83804986 M46.1 Caffeine-i nduced sleep disorder 70153333 F15.982 [id number] Suraj Jimenez MD [address] [place] [address] 01/08/2025 09:40:53 01/08/2025 10:27:42 Lumbar radiculopathy 632249590 M54.16 Lumbar spondylosis 61226 0009 M47.896 Degenerati on of lumbar intervertebral disc 24787818 M51.369 Long-term drug therapy 020732836 Z79.891 Caffeine-i nduced sleep disorder 43369871 F15.982 Inflammati on of sacroiliac joint 84291401 M46.1 Health Concerns Section Related Observation LastModified by Organization Detai ls LastModified Time None Recorded Concern Status LastModified by Organization Details LastModified Time None Recorded Advance Directives Directive None Recorded Payers Encounter Date Sequence Insurance Name Policy Number Policy Ayala Covered Member ID Ayala Member ID Guarantor Name 11/27/2024 1 [employer] [place] (MEDICAID HMO) [place] [id number] [place] 12/04/2024 1 [employer] [place] [id number] [place] 12/12/2024 1 [employer] [place] H[place] [id number] [place] 12/25/2024 1 [employer] [place]MED[place] H[place] [id number] [place] 01/08/2025 1 [employer] [place] (MEDICAID HMO) [place] [id number] [place] Notes Date Note Type Note [...] Imaging:MRI; X-ray Suraj Jimenez MD [address], [address], [place] [facility] 11/27/2024 17:56:48 12/04/2024 text/html Back [...] Imaging:MRI; X-ray Suraj Jimenez MD [address], [address], [place] [facility] 12/04/2024 18:51:52 12/12/2024 [...] limbs;numbness of the legs/feet;tingling Prior Imaging:MRI; X-ray ALIZE ELLY, PA [address], [address], [place] [facility] 12/12/2024 10:13:25 12/25/2024 [...] legs/feet;tingling Prior Imaging:MRI; X-ray Suraj Jimenez MD [facility] [address], [address], [place] [facility] 12/25/2024 10:25:13 [...] legs/feet;tingling Prior Imaging:MRI; X-ray Suraj Jimenez MD [facility] [address], [address], [place] [facility] 01/08/2025 10:53:25 OBGyn Episode No OBEpisode recorded.
--- NOTE | 2025-04-09 09:56 | P.PCN_ITS ---
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 Today she rates her pain a 6 out of 10. She denies any new falls or injuries. She does state that she is having worsening pain along her right low back and hip. Patient states with her last increase she had no issues. She states that the numbness is not getting any worse however the pain is. She does state it is interfering with her ability perform activities of daily living such as cooking and cleaning. Patient is interested in injections. Patient states that she does feel like that she has had improvement with these in the past but often they are frequently temporary. Patient is currently managed with Dilaudid 1 mg/mL with a daily dose of 0.2704 mg/day and bupivacaine 15 mg/mL with a daily dose of 4.055 mg/day. She denies any side effects. Her Amari has been reviewed and is appropriate. Physical Exam: General: Alert and oriented x3, no acute distress, pleasant and cooperative Lungs: Respirations even and unlabored, symmetrical chest expansion Eyes: PERRL Musculoskeletal: Flexion and extension of lumbar [spine] somewhat guarded secondary to pain, [antalgic gait noted] point tenderness along right SI and right greater trochanteric bursa with positive right Carmelina's, Arianna's, Gaenslen's, compression and distraction exam Neurological: Speech clear, no gross sensory deficit Procedure Details:: Informed consent was obtained and the risk and benefits of the procedure were explained to the patient. Patient did have noninvasive monitoring was placed including noninvasive blood pressure cuff and pulse oximeter. Patient's pump was interrogated and was reprogrammed to Dilaudid 0.352 mg/day and bupivacaine 5.281 mg/day. The patient tolerated the procedure well with no complications. Plan and Disposition:: Patient tolerated the procedure well with no complications and was discharged neurologically intact. Patient is experiencing worsening pain along her low back and right hip with limited range of motion. Patient did have point tenderness along her right SI and right greater trochanteric bursa during today's exam. I did discuss with patient that I do believe she would benefit from a right SI and right greater trochanteric bursa injection. Risk and benefits were discussed with the patient and she would like to proceed forward with this plan of care. Patient has had this pain for longer than a year unrelieved with conservative measures such as oral medication, heat and ice, topicals, physical therapy and at home stretching exercise for longer than 12 weeks that was physician guided. Patient has had chronic low back pain for years and has had SI injections in the past that did provide significant relief however did not seem to make improvement on her numbness. Patient does state today that she did typically get about 80% relief however it varied on how long some she would get more than a couple of months but it did depend on how much activity she was doing at that time. Patient has been evaluated by neurosurgery and is not a candidate at this time. I did review over with her I do believe in future she may be a beneficial candidate of pain SI fusion as this is a chronic issue. We will do a therapeutic SI injection with less than 1.5 mL of solution to be injected. I did give her a pamphlet on the SI fusion and we will follow- up with her after this injection. Patient will be scheduled for a right SI and right bursa injection under fluoroscopy. Patient has been instructed to contact the clinic with any concerns before the next appointment. Dr. Jimenez has reviewed this note and agrees with this plan of care. This note was dictated using voice recognition software and make contain errors or omissions. All injections are used with Lidocaine, Bupivacaine and dexamethasone unless diagnostic in which case there is no steroids injected. Occasionally urine drug screen is needed to verify patient's compliance with our office pain contract. This is ordered based off specific treatments related to chronic pain with the potential to abuse certain medications.
[2025-04-09 09:57] VITALS: BP 125/76; PULSE 76; RESP 14; O2SAT 100; BMI 44.9
== END 2025-04-09 23:59 | disposition home or self-care (01) ==
PROVIDERS: PCP Nurse Practitioner Family; Visit Provider Nurse Practitioner Family
DX: M51.360 Other intervertebral disc degeneration, lumbar region with discogenic back pain only (principal); M46.1 Sacroiliitis, not elsewhere classified; M70.61 Trochanteric bursitis, right hip; Z79.899 Other long term (current) drug therapy
CPT/HCPCS: 62368; 99213; G0463

== ENCOUNTER 2025-04-18 09:59 | Day surgery (SDC) | payer OTHER, SELFPAY ==
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
--- NOTE | 2025-04-18 10:17 | EXP.PAIN.PRO ---
Procedure Date: 04/18/25 Time: 10:05 Anesthesiologist:: Yolie Pierre APRN Complications:: None Pre-procedure Diagnosis:: Degenerative disc disease of lumbar spine, bilateral sacroiliitis, chronic pain syndrome Post-procedure Diagnosis:: Same Indications for Procedure:: Patient is a pleasant 45-year-old female who presents today for intrathecal refill and reprogram. 7 out of 10. She denies any new trauma or injury. She does state that she did not have any side effects with the increase dosage from her last refill. Patient denies any worsening numbness and tingling. Patient states that she feels like the increases do help but frequently they just do not seem to last that long. Physical Exam: General: Alert and oriented x3, no acute distress, pleasant and cooperative Lungs: Respirations even and unlabored, symmetrical chest expansion Eyes: PERRL Musculoskeletal: Flexion and extension of lumbar [spine] somewhat guarded secondary to pain, [antalgic gait noted] Neurological: Speech clear, no gross sensory deficit Procedure Details:: Informed consent was obtained and the risk and benefits of the procedure were explained to the patient. The patient had noninvasive monitoring placed including noninvasive blood pressure cuff and pulse oximeter. Patient's pump was interrogated. The area over the pump was cleansed with chlorhexidine as a cleansing solution. In sterile fashion the pump was accessed with a 22-gauge needle. Approximately 6.2 mls of the pump solution was removed and discarded appropriately. The pump was then refilled with 20 mL's of Dilaudid 1 mg/mL and bupivacaine 15 mg/mL. The needle was withdrawn and a bandage was placed over the puncture site. The infusion rate was reprogrammed and changed to flex dosing with an increase of Dilaudid 0.4082 and bupivacaine 6.123 mg/day. The patient tolerated well with no complication. Plan and Disposition:: Patient tolerated the procedure well with no complications and was discharged neurologically intact. Patient will return to clinic on or before their next intrathecal refill date. We will see the patient back in the clinic at the next intrathecal refill. Patient has been instructed to contact the clinic with any concerns before the next appointment. Dr. Jimenez has reviewed this note and agrees with this plan of care. This note was dictated using voice recognition software and make contain errors or omissions. -- It Is medically necessary for this patient to continue to have their intrathecal pump refilled at regular intervals. This patient had an intrathecal pain pump implanted after meeting criteria of chronic intractable pain for greater than 3 months and failing conservative treatments. Patient has committed and been compliant to the treatment plan and all planned follow up care. Since implantation of the intrathecal pain pump, the patient has had decreased pain and been more functional. Oral medications have been reduced including intake of oral opioids. Patient continues to do well with intrathecal therapy with decrease in pain symptoms and increase in functional status. Stopping intrathecal medications can lead to life threatening withdrawal, seizures, cardiac arrest, severe pain, and possible . Pumps that are not refilled at regular intervals can be damages and cause and need for replacement. We continually titrate dose and concentration to optimize pain relief and function. We are limited in concentration for certain drugs to safely deliver medications through the pump and stay within the recommendations from the Polyanalgesic Consensus Committee Guidelines. Depending on dose and concentration these pumps may need to be refilled sooner than 3 months as we titrate. A UDS is needed to verify patient's compliance with our office pain contract. This is ordered based off specific treatments related to chronic pain with the potential to abuse certain medications.
[2025-04-18 10:25] VITALS: BP 131/77; PULSE 78; RESP 16; O2SAT 98
[2025-04-18 10:28] VITALS: BP 151/99; PULSE 74; RESP 18; O2SAT 100
[2025-04-18 10:30] VITALS: BMI 44.9
[2025-04-18 10:40] VITALS: BP 147/78; PULSE 79; O2SAT 100
== END 2025-04-18 10:40 | disposition home or self-care (01) ==
PROVIDERS: PCP Nurse Practitioner Family; Visit Provider Nurse Practitioner Family
DX: Z45.1 Encounter for adjustment and management of infusion pump (principal); M46.1 Sacroiliitis, not elsewhere classified; M51.369 Other intervertebral disc degeneration, lumbar region without mention of lumbar back pain or lower extremity pain; G89.4 Chronic pain syndrome; M54.2 Cervicalgia; M45.9 Ankylosing spondylitis of unspecified sites in spine; M47.812 Spondylosis without myelopathy or radiculopathy, cervical region; M79.7 Fibromyalgia; Z98.84 Bariatric surgery status; F41.9 Anxiety disorder, unspecified; D50.9 Iron deficiency anemia, unspecified; G47.00 Insomnia, unspecified; I10 Essential (primary) hypertension; G62.9 Polyneuropathy, unspecified; E66.01 Morbid (severe) obesity due to excess calories; Z68.41 Body mass index [BMI] 40.0-44.9, adult; M17.12 Unilateral primary osteoarthritis, left knee; Z79.899 Other long term (current) drug therapy; Z79.69 Long term (current) use of other immunomodulators and immunosuppressants; Z88.4 Allergy status to anesthetic agent; Z88.0 Allergy status to penicillin; Z88.2 Allergy status to sulfonamides; Z88.8 Allergy status to other drugs, medicaments and biological substances; R20.0 Anesthesia of skin; R20.2 Paresthesia of skin
CPT/HCPCS: 62370

== ENCOUNTER 2025-05-13 11:30 | Day surgery (SDC) | payer OTHER, SELFPAY ==
[2025-05-13 11:34] VITALS: BP 140/69; PULSE 84; RESP 18; O2SAT 97; BMI 41.5
[2025-05-13] MEDS: DEXAMETHASONE 10MG/ML 1ML VIAL 10 MG (11:39)
[2025-05-13] MEDS: LIDOCAINE 1% 5ML PF VIAL 5 ML (11:39)
[2025-05-13 11:40] VITALS: BP 154/93; PULSE 83; RESP 18; O2SAT 98
[2025-05-13] MEDS: BUPIVACAINE 0.25% 10ML INJ 25 MG IJ (11:40)
[2025-05-13 11:42] VITALS: BP 154/93; PULSE 83; RESP 18; O2SAT 98
[2025-05-13 11:52] VITALS: BP 154/90; PULSE 82; RESP 18; O2SAT 98
--- NOTE | 2025-05-13 12:10 | P.PCN_ITS ---
Procedure Date: 05/13/25 Time: 11:30 Anesthesiologist:: Denis Hare CRNA Complications:: None Pre-procedure Diagnosis:: Right sacroiliitis. Right trochanteric bursitis. Post-procedure Diagnosis:: Same. Indications for Procedure:: Patient is a pleasant 45-year-old female who comes our clinic today for right sacroiliac joint injection of cortisone local anesthetic. Also, right trochanteric bursa injection of cortisone local anesthetic. Patient describes right posterior hip pain as constant, dull, aching. She is reporting difficulty transitioning from sitting to standing. She has extreme point tenderness over the right sacroiliac joint. Also, extreme point tenderness over the right trochanteric bursa area. She rates her pain 6/10. Procedure Details:: Procedure: Right sacroliliac joint injection under fluoroscopy Informed consent was obtained and the risk and benefits of the procedure were explained to the patient.~ The patient was taken to the procedure room and noninvasive monitors were placed including noninvasive blood pressure cuff and pulse oximeter.~ The patient was placed prone on the procedure table.~ The~ right hip was cleansed using Betadine as a cleansing solution.~ C-arm fluorosocpy was used to view the right SI joint.~ The skin and subcutaneous tissues were anesthetized using Lidocaine 1.5% and a 25-gauge needle.~ After this, a 22-gauge spinal needle was inserted under fluoroscopic guidance into the inferior aspect of the right SI joint.~ Omnipaque dye was injected and a good spread was seen throughout the joint.~ After this, approximately 5 mL of bupivacaine 0.25% and dexamethasone 10 mg mg was incrementally injected into the sacroiliac joint.~ The patient tolerated the procedure well with no complications.~ The patient was observed in the Pain Clinic, then discharged home neurologically intact.~ Procedure: Right trochanteric bursa injection under fluoroscopy We then moved to the right trochanteric bursa.~ C-arm fluoroscopy was used to view the left greater trochanter.~ The skin and subcutaneous tissues overlying the right greater trochanter were anesthetized using lidocaine, 1.5% and a 25- gauge needle.~ After this, a 22-gauge spinal needle was inserted and advanced until it contacted the right greater trochanter.~ Dye was injected and good spread was seen throughout the right trochanteric bursa. After this, approximately 5 mL of bupivacaine, 0.25% and dexamethasone 10 mg was incrementally injected into the right right trochanteric bursa.~ The patient tolerated the procedure well with no complications. Plan and Disposition:: Patient was discharged without incident.
== END 2025-05-13 11:52 | disposition home or self-care (01) ==
LOC: SC.PAINP 11:31
PROVIDERS: PCP Nurse Practitioner Family; Visit Provider Nurse Anesthetist, Certified Registered
DX: M70.61 Trochanteric bursitis, right hip (principal); M46.1 Sacroiliitis, not elsewhere classified; R20.2 Paresthesia of skin; R20.0 Anesthesia of skin; Y93.9 Activity, unspecified; M47.22 Other spondylosis with radiculopathy, cervical region; M79.7 Fibromyalgia; E66.01 Morbid (severe) obesity due to excess calories; Z68.41 Body mass index [BMI] 40.0-44.9, adult; E53.8 Deficiency of other specified B group vitamins; G47.00 Insomnia, unspecified; D50.9 Iron deficiency anemia, unspecified; G25.81 Restless legs syndrome; Z88.1 Allergy status to other antibiotic agents; Z88.8 Allergy status to other drugs, medicaments and biological substances; Z79.1 Long term (current) use of non-steroidal anti-inflammatories (NSAID); Z79.899 Other long term (current) drug therapy
CPT/HCPCS: 20610; 27096; J0665; J1100; J2003

== ENCOUNTER 2025-05-22 09:28 | Day surgery (SDC) | payer OTHER, SELFPAY ==
[2025-05-22 09:33] VITALS: BP 141/80; PULSE 64; RESP 18; O2SAT 96; BMI 43.2
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
--- NOTE | 2025-05-22 09:40 | EXP.PAIN.PRO ---
Procedure Date: 05/22/25 Time: 10:22 Anesthesiologist:: Yolie Pierre APRN Complications:: None Pre-procedure Diagnosis:: Degenerative disc disease of cervical and lumbar spine, chronic pain syndrome, sacroiliitis Post-procedure Diagnosis:: Same Indications for Procedure:: Patient is a pleasant 45-year-old female who presents today for intrathecal refill and reprogram. Today she rates her pain a 7 out of 10. She denies any new falls or injuries. Patient did just have a right SI and right bursa injection and states that she had 100% relief of the numbness and tingling that she has been experiencing in the upper right thigh for a full 4 days. Patient has had other SI injections in the past that did give her relief as well however were very temporary. Patient is asking what we can do with this information and whether or not if there are other options to give her more consistent relief from the numbness. Patient is currently managed with Dilaudid 1 mg/mL with a daily dose of 0.4082 mg/day and bupivacaine 15 mg/mL with a daily dose of 6.123 mg/day. She denies any side effects. Patient does state that the difference between the continuous and flex dosing has also seem to really help improve her overall symptoms. She feels like this is working much better. Her Amari has been reviewed and is appropriate. Physical Exam: General: Alert and oriented x3, no acute distress, pleasant and cooperative Lungs: Respirations even and unlabored, symmetrical chest expansion Eyes: PERRL Musculoskeletal: Flexion and extension of lumbar [spine] somewhat guarded secondary to pain, [antalgic gait noted] Neurological: Speech clear, no gross sensory deficit Procedure Details:: Informed consent was obtained and the risk and benefits of the procedure were explained to the patient. The patient had noninvasive monitoring placed including noninvasive blood pressure cuff and pulse oximeter. Patient's pump was interrogated. The area over the pump was cleansed with chlorhexidine as a cleansing solution. In sterile fashion the pump was accessed with a 22-gauge needle. Approximately 8.7 mls of the pump solution was removed and discarded appropriately. The pump was then refilled with 20 mL's of Dilaudid 1 mg/mL and bupivacaine 15 mg/mL. The needle was withdrawn and a bandage was placed over the puncture site. The infusion rate was reprogrammed and continued. We did have trouble with our [employer] reader for this patient to and that it deleted all her prior settings. We did recalculate her flex dosing with a daily dose of 0.4201 mg/day of the Dilaudid and 6.301 mg/day of the bupivacaine.. The patient tolerated well with no complication. Plan and Disposition:: Patient tolerated the procedure well with no complications and was discharged neurologically intact. I did review with the patient due to the fact that she did have significant relief with the 100% returning a feeling to her right upper thigh following these injections that I do believe she would benefit from a right SI fusion. Patient has had multiple SI injections that did show improvement of her chronic symptoms. Patient has also been to see multiple specialties that could not explain her pain including orthopedics, neurology, neurosurgery. Patient is not a surgical candidate currently. Patient has tried and failed conservative therapy including oral medication, heat and ice, topicals, physical therapy, at home stretch exercise for longer than 12 weeks that was physician guided. Patient has been dealing with this numbness for over a year. We will submit to insurance for the right SI fusion under fluoroscopy. She will also get her next refill date. Patient will return to clinic on or before their next intrathecal refill date. We will reach out to the [employer] billing customer service representative regarding the pump reader issues for this patient. We will see the patient back in the clinic at the next intrathecal refill. Patient has been instructed to contact the clinic with any concerns before the next appointment. Dr. Jimenez has reviewed this note and agrees with this plan of care. This note was dictated using voice recognition software and make contain errors or omissions. -- It Is medically necessary for this patient to continue to have their intrathecal pump refilled at regular intervals. This patient had an intrathecal pain pump implanted after meeting criteria of chronic intractable pain for greater than 3 months and failing conservative treatments. Patient has committed and been compliant to the treatment plan and all planned follow up care. Since implantation of the intrathecal pain pump, the patient has had decreased pain and been more functional. Oral medications have been reduced including intake of oral opioids. Patient continues to do well with intrathecal therapy with decrease in pain symptoms and increase in functional status. Stopping intrathecal medications can lead to life threatening withdrawal, seizures, cardiac arrest, severe pain, and possible . Pumps that are not refilled at regular intervals can be damages and cause and need for replacement. We continually titrate dose and concentration to optimize pain relief and function. We are limited in concentration for certain drugs to safely deliver medications through the pump and stay within the recommendations from the Polyanalgesic Consensus Committee Guidelines. Depending on dose and concentration these pumps may need to be refilled sooner than 3 months as we titrate. A UDS is needed to verify patient's compliance with our office pain contract. This is ordered based off specific treatments related to chronic pain with the potential to abuse certain medications.
[2025-05-22 10:42] VITALS: BP 149/91; PULSE 85; RESP 18; O2SAT 99
[2025-05-22 10:44] VITALS: BP 141/80; PULSE 64; RESP 18; O2SAT 97
== END 2025-05-22 10:42 | disposition home or self-care (01) ==
PROVIDERS: PCP Nurse Practitioner Family; Visit Provider Nurse Practitioner Family
DX: Z45.1 Encounter for adjustment and management of infusion pump (principal); M46.1 Sacroiliitis, not elsewhere classified; M47.22 Other spondylosis with radiculopathy, cervical region; M51.369 Other intervertebral disc degeneration, lumbar region without mention of lumbar back pain or lower extremity pain; G89.4 Chronic pain syndrome; E66.01 Morbid (severe) obesity due to excess calories; Z68.41 Body mass index [BMI] 40.0-44.9, adult; Z98.84 Bariatric surgery status; I10 Essential (primary) hypertension; M79.7 Fibromyalgia; E53.8 Deficiency of other specified B group vitamins; E83.10 Disorder of iron metabolism, unspecified; Z79.899 Other long term (current) drug therapy; G47.00 Insomnia, unspecified; K22.70 Barrett's esophagus without dysplasia; G25.81 Restless legs syndrome; Z88.1 Allergy status to other antibiotic agents; Z88.0 Allergy status to penicillin; Z88.8 Allergy status to other drugs, medicaments and biological substances
CPT/HCPCS: 62370

== ENCOUNTER 2025-06-18 15:09 | Outpatient (CLI) | payer OTHER, SELFPAY ==
--- OUTSIDE RECORDS SUMMARY | 2025-06-18 15:11 | XMS_ITS | Encounter Summary ---
Author Organization [employer] ([place], [place], [place], [place]) Address [address] [place] [address] Care Team Providers Care Nougat Cutter Machine Name Role Phone Unavailable Primary Care Provider Unavailabl e Encounter Details Date Type Department Care Team (Late st Contact Info) Description 11/26/2018 Transcribed Document [facility] [place] [address] [place] [address] ProviderBonnie MD [address] [place] [address] Social History Tobacco Use Types Packs/Day Years Used Date Smoking Tobacco: Never Assessed Comments Unknown Sex and Gender Information Value Date Recorded Sex Assigned at Not on file Legal Sex Female 6:06 PM CDT Gender Identity Not on file Sexual Orientation Not on file documented as of this encounter Miscellaneous Notes * Cerner Conversion Note - Historical ProviderMD - 11/26/2018 12:48 PM HOSPITAL ACCOUNT MANAGER Patient: JULIÁN PARR Age: 38 Years Sex: Female : 1980 Chief Complaint Patient awake, but in a catatonic state, not responding to family, started last night but came out of it to talk with boyfriend. Informant is , but they are getting . No hx of this state, no psych hx Reason for Consultation gallstones History of Present Illness Pt is a 38yo female who presents with nausea, vomiting, diarrhea for the past few weeks. Associated with fever/chills and headache, jaundice, RUQ pain, decreased UOP and weakness. She was evaluated at outside facility in the ER and told she had cholecystitis and hepatitis A. She was discharged home, felt more weak and had a questionable syncopal episode vs reported catatonia , prompting her to present to the ER at [facility]. She states that one year ago she had scan for vaginal bleeding and incidentally found a gallstone. She denies any history of symptoms of biliary colic in the past year. US shows gallstones with probable sludge, no wall thickening. Pt has a past surgical history including appendectomy, laparoscopic gastric bypass (in [place], 8yrs ago), hysterectomy. Review of Systems Complete review of systems was performed and negative except as stated in history of present illness Physical Exam Vitals & Measurements T: 36.9 ??C HR: 79 (Monitored) HR: 91 (Peripheral) RR: 21 BP: 115/63 MAP: 97 SpO2: 98% HT: 165.1 cm WT: 100 kg WT: 100 kg BMI: 36.7 General: Alert and oriented, well nourished, no acute distress Neurologic: Awake, alert, and oriented X3 Eye: EOMI, normal conjuctiva HENT: Normocephalic, normal hearing, moist oral mucosa, no scleral icterus, no sinus tenderness Neck: Supple, non-tender, no lymphadenopathy Lungs: Clear to auscultation, non-labored respiration Heart: Normal rate, regular rhythm, no murmur, gallop or edema Abdomen: Soft, generalized tenderness, non-distended, normal bowel sounds, no masses Musculoskeletal: Normal range of motion and strength, no tenderness or swelling, Skin: Skin is warm, dry and pink, no rashes or lesions Psychiatric: Cooperative, appropriate mood and affect Assessment/Plan 28yoF with h/o lap gastric bypass who presents with acute hepatitis A and dehydration - Her nausea, emesis, abdominal pain are much more likely attributable to acute hepatitis A than gallstone disease. Her ultrasound shows no signs of acute cholecystitis. Given her history of lap gastric bypass, it is harder for her to drink large amounts of water at a time and it is easier for her to become dehydrated. Recommend rehydration and supportive care. After her acute hepatitis A resolves, if she develops any symptoms of biliary colic, or cholecystitis, I will be happy to see her to discuss elective cholecystectomy, however at this time, I believe her symptoms are attributable to hepatitis A. Recommend checking vitamin levels for anemia workup given h/o gastric bypass. Surgical follow up information has been provided in the discharge tab. General surgery will sign off. Please call with questions and concerns. Debbie Lutz MD General Surgery [facility] Problem List/Past Medical History Abnormal vaginal bleeding Anemia Dyspareunia in female Endometriosis Metrorrhagia Procedure/Surgical History appy, diagnostic lap x6, Gastric bypass, LEEP, x2, T&A, tubal ligation, vaginal hysterectomy. Medications Inpatient acetylcysteine 600 mg oral capsule, 1200 mg, 2 Cap, Oral, BID Ativan, 0.5 mg, 0.25 mL, IV Push, Q4H, PRN cloNIDine, 0.1 mg, 1 Tab, Oral, Q4H, PRN Dextrose 5% with 0.9% NaCl intravenous solution 1,000 mL, 1000 mL, IntraVENous DuoNeb 0.5 mg-2.5 mg/3 mL inhalation solution, 3 mL, Nebulized Inhalation , Q6H, PRN Flagyl, 500 mg, 100 mL, IV Piggyback, Q6H heparin, 5000 Units, 1 mL, SubCutaneous, Q8H hydrALAZINE, 10 mg, 0.5 mL, IV Push, Q6H, PRN lactulose, 20 Gram, 30 mL, Oral, Q8H Levaquin, 750 mg, 150 mL, IV Piggyback, [id number] morphine, 2 mg, 1 mL, IV Push, Q2H, PRN NaCl 0.9% bolus, 1000 mL, IV Piggyback, 1-Time Pepcid, 20 mg, 1 Tab, Oral, Daily Phenergan, 6.25 mg, 0.25 mL, IntraVENous, Q6H, PRN pneumococcal 23-polyvalent vaccine, 0.5 mL, IntraMuscular, [id number] Zofran, 4 mg, 2 mL, IV Push, Q4H, PRN Home PriLOSEC 20 mg oral delayed release capsule, 20 mg, 1 Cap, Oral, Daily promethazine 12.5 mg oral tablet, 12.5 mg, 1 Tab, Oral, Q6H, PRN Zofran 4 mg oral tablet, 4 mg, 1 Tab, Oral, Q4H, PRN Allergies Ceclor penicillin (seizure) Social History Alcohol Alcohol Use History Yes. Alcohol Use Frequency Rarely. Alcohol Use History No. Employment/School Unemployed Home/Environment Lives with Children. Substance Abuse Drug Use Hx: No. Tobacco Smoking Status Never smoker. Smoking Status Never smoker. Family History heart disease, DMII, CHF Lab Results Vitals Signs (last 24 hrs) Last Charted Minimum Maximum Temp 98.5 (NOV 26 10:15) 98.5 (NOV 26 10:15) 99.0 (NOV 25 18:35) Heart Rate 91 (NOV 25 18:35) 91 (NOV 25 18:35) 91 (NOV 25 18:35) Resp Rate H 21(NOV 26 10:15) 15 (NOV 26 08:29) H 22(NOV 25 20:30) SBP 115 (NOV 26 10:15) 98 (NOV 26 06:00) 139 (NOV 26 00:30) DBP 63 (NOV 26 10:15) L 56(NOV 26 06:00) 84 (NOV 26 04:00) SpO2 98 (NOV 26 10:15) 99 (NOV 25 18:35) 100 (NOV 25 22:00) Clinical(Dosing) Weight 103 (NOV 25 18:35) 103 (NOV 25 18:35) 103 (NOV 25 18:35) CBC Results (Current Encounter/Past 24 Hours) WBC 2.4 K/uL LOW 11/26/2018 03:52 Hct 34.0 % LOW 11/26/2018 03:52 Hgb 10.0 g/dL LOW 11/26/2018 03:52 Platelet Count 216 K/uL 11/26/2018 03:52 CMP Results (Current Encounter/Past 24 Hours) eGFR NonAfrican >60 mL/min/1.73m2 11/26/2018 04:16 Bun/Creatinine 10.0 11/26/2018 04:16 eGFR >60 mL/min/1.73m2 11/26/2018 04:16 A/G Ratio 0.8 LOW 11/26/2018 04:16 Protein Total 5.9 Gram/dL LOW 11/26/2018 04:16 Creatinine Level 0.50 mg/dL LOW 11/26/2018 04:16 Globulin 3.2 Gram/dL 11/26/2018 04:16 Sodium Level 140 mmol/L 11/26/2018 04:16 Potassium Level 4.3 mmol/L 11/26/2018 04:16 Chloride Level 108 mmol/L 11/26/2018 04:16 Carbon Dioxide Level 26 mmol/L 11/26/2018 04:16 Anion Gap 10 11/26/2018 04:16 Alk Phos 153 Units/Liter VA 11/26/2018 04:16 ALT 1322 Units/Liter VA 11/26/2018 04:16 AST 1863 Units/Liter HI 11/26/2018 04:16 Blood Urea Nitrogen 5 mg/dL LOW 11/26/2018 04:16 Glucose Level 82 mg/dL 11/26/2018 04:16 Albumin Level 2.7 Gram/dL LOW 11/26/2018 04:16 Bilirubin Total 0.6 mg/dL 11/26/2018 04:16 Calcium Level 7.4 mg/dL LOW 11/26/2018 04:16 Magnesium Level 2.2 mg/dL 11/25/2018 20:05 Diagnostic Results Radiology Results (Last 48 hours) [id number] -- 11/25/2018 22:24 CR Chest 1 Vw Portable (11/25/2018 19:58) Result: PORTABLE CHEST 11/25/2018 7:00 PM HISTORY: Syncope.COMPARISON: None.FINDINGS: The heart is normal in size . The mediastinum isunremarkable . The lungs are clear . There is no pneumothorax . Theosseous structures are unremarkable . IMPRESSION: No acute cardiopulmonary process .Images reviewed, interpreted, and dictated by Dr. Bertin Alfredo.Transcribed by Naun Marlow PA-C.I have personally viewed, interpreted and dictated the examination. Ihboris read and agree with the above final transcribed report. CT Head WO (11/25/2018 20:11) Result: HEAD CTHISTORY: Altered mental status.TECHNIQUE: Multiple axial CT images were performed from the foramenmagnum to the vertex without contrast. This study was performed withtechniques to keep radiation doses as low as reasonably achievable,(ALARA). Individualized dose reduction techniques using automatedexposure control or adjustment of mA and/or kV according to the patientsize were employed.COMPARISON: None.FINDINGS: The ventricles are normal. There is no mass or shift ofmidline structures. There is no intracranial hemorrhage. No significantsinus or osseous abnormality is seen.IMPRESSION: Unremarkable.Images reviewed, interpreted, and dictated by Dr. Joe Turk.Transcribed by Eb Parsons.I have personally viewed, interpreted and dictated the examination. Ihboris read and agree with the above final transcribed report. US Gallbladder (11/26/2018 08:27) Result: GALLBLADDER ULTRASOUND.HISTORY: Right upper quadrant pain.PROCEDURE: Ultrasound images of the gallbladder were obtained.FINDINGS: The pancreatic tail is obscured. The liver parenchyma isnormal in echogenicity. The gallbladder is well visualized and the wallappears normal. There are echogenic foci within the gallbladderconsistent with small stones. There is probable sludge. The common ductis normal. IMPRESSION: Gallstones with probable sludge.Images reviewed, interpreted, and dictated by Dr. Garth Corbin.Transcribed by Janis Solano PA-C.I have personally viewed, interpreted and dictated the examination. Ihave read and agree with the above final transcribed report. documented in this encounter Plan of Treatment Not on file documented as of this encounter Visit Diagnoses Not on filedocumented in this encounter
--- OUTSIDE RECORDS SUMMARY | 2025-06-18 15:11 | XMS_ITS | Encounter Summary ---
Author Organization [employer] ([place], [place], [place], [place]) Address [address] [place] [address] Care Team Providers Care Coater Operator Insulation Board Name Role Phone Unavailable Primary Care Provider Unavailabl e Encounter Details Date Type Department Care Team (Late st Contact Info) Description 11/26/[address] [facility] [place] [address] [place] [address] ProviderBonnie MD [address], [place] [id number] Social History Tobacco Use Types Packs/Day Years Used Date Smoking Tobacco: Never Assessed Comments Unknown Sex and Gender Information Value Date Recorded Sex Assigned at Not on file Legal Sex Female 6:06 PM CDT Gender Identity Not on file Sexual Orientation Not on file documented as of this encounter Miscellaneous Notes * Cerner Conversion Note - Historical ProviderMD - 11/26/2018 4:58 AM PRESIDENT AND CMO Admission History, Adult Entered On: 11/26/2018 5:06 EST Performed On: 11/26/2018 4:58 EST by Wendy Rodriges Rn Advance Directive Patient has Advance Directive *Q : No, patient refuses Advance Directive information Wendy Rodriges Rn - 11/26/2018 4:58 EST Anesthesia/Transfusion History Family History of Anesthesia Reaction : Prior transfusion without reaction Transfusion History : Prior anesthesia without reaction Family History of Anesthesia Reaction : None Wendy Rodriges Rn - 11/26/2018 4:58 EST Functional Assessment Living Situation : Home Patient Lives With : Child/Children, Parent(s), Spouse Persons Assisting Patient at Home : Alone Current Daily Living Assistance : None Sensory Deficits : None Current Home Treatments : None Wendy Rodriges Rn - 11/26/2018 4:58 EST General Info Mode of Arrival on Unit : Wheelchair Legal Guardian : Spouse Want Family/Rep/Phys Notified of Admit : No Emergency Contact #1 : Sonny Holly Emergency Contact #1 Emergency Contact #1 Relationship : Emergency Contact #2 : none Emergency Contact #2 Phone Number : none Emergency Contact #2 Relationship : none Chief Complaint : Patient awake, but in a catatonic state, not responding to family, started last night but came out of it to talk with boyfriend. Informant is , but they are getting . No hx of this state, no psych hx Information Obtained From : Patient, Medical Record Primary Language : Mauritian Preferred Communication Mode : Verbal Communication Barrier : Medical condition Wendy Rodriges Rn - 11/26/2018 4:58 EST Fall Risk Scales ABCs Fall Injury Risk Identification : None MONGE Hx Falls Immediate/Within 3 Months : Yes Monge Secondary Diagnosis : No MONGE Use of Ambulatory Aid : Bed rest/Nurse assist MONGE IV Therapy or IV Access : Yes Monge Gait/Transferring : Weak Monge Mental Status : Oriented to own ability Monge Fall Risk Score : 55 MONGE Fall Scale Risk Level : 46 or > High Risk [place] Fall Interventions : Adequate lighting, Bed in low position, Call device within reach, Hourly comfort/safety rounds, Personal items within reach, Room free of clutter/spills, Upper side-rails up, Wheels locked, Wires/Cords secured Wendy Rodriges Rn - 11/26/2018 4:58 EST Health Histories Smoking Status : Never (less than 100 in lifetime; none in last 30 days) Smokeless Tobacco Status : Never Wendy Rodriges Rn - 11/26/2018 4:58 EST Social History (As Of: 11/26/2018 05:06:23 EST) Tobacco: Smoking Status Never smoker. (Last Updated: 10/18/2017 15:37:59 EST by MARQUITA GIBBS, ZHANG) Smoking Status Never smoker. (Last Updated: 10/24/2017 07:55:01 EST by Judith Coyne, ZHANG) Alcohol: Alcohol Use History No. (Last Updated: 10/18/2017 15:38:03 EST by MARQUITA GIBBS, ZHANG) Alcohol Use History Yes. Alcohol Use Frequency Rarely. (Last Updated: 10/24/2017 07:55:01 EST by Judith CoyneZHANG) Substance Abuse: Drug Use Hx: No. (Last Updated: 10/24/2017 07:55:01 EST by Judith Coyne RN) Home/Environment: Lives with Children. (Last Updated: 10/18/2017 15:38:16 EST by MARQUITA GIBBS RN) Employment/School: Unemployed (Last Updated: 10/18/2017 15:38:21 EST by MARQUITA GIBBS RN) Height and Weight, Clinical Dosing Height Source : Estimated Height Entry Format : [place] Height, Feet : 5 ft(Converted to: 152 cm, 60 Inch) Height, Inches : 5 Inch(Converted to: 0 ft 5 Inch, 12.70 cm) Clinical Height : 165.1 cm Weight Source : Estimated [place] Body Weight : 57 kg Wendy Rodriges Rn - 11/26/2018 4:58 EST Estimated Weight Type of Weight Measurement Est : [place] Weight, est lb : 220 lb(Converted to: 100 kg) Estimated Clinical Dosing Weight : 100 kg Wendy Rodriges Rn - 11/26/2018 4:58 EST Infectious Disease History Infectious Disease History : Chicken pox/Shingles, Hepatitis A, MRSA Isolation Needed : Standard Fever/Chills Last 48 Hours : No Travel To Regions with Travel Advisories : No Travel Outside [place] Within Last 30 Days : No Contact With Traveler to Advisory Region : No Tuberculosis Symptoms : None Wendy Rodriges Rn - 11/26/2018 4:58 EST Influenza Vaccine Asmt, Adult Previous Vaccines from Immunization Schedule : No qualifying data available. Influenza Immunization, Current Season : No Inactivated Flu Vaccine Contraindications : No contraindications to inactivated influenza vaccine Transplant Workup/Recent Transplant : No Order for Influenza Vaccine : Declined Vaccination Wendy Rodriges Rn - 11/26/2018 4:58 EST Pneumococcal Vaccine Previous Vaccines from Immunization Schedule : No qualifying data available. Pneumonia Immunization Received : No Pneumococcal Risk Assessment < Age 65 : Immunocompromising condition (e.g., HIV, congenital immunodeficiency, hematologic and solid tumors) Pneumococcal Vaccine Contraindications : No contraindications to pneumococcal vaccine Transplant Workup/Recent Transplant : No Order for Pneumococcal Vaccine : Order for pneumococcal vaccine sent to pharmacy Wendy Rodriges Rn - 11/26/2018 4:58 EST Nutrition History Feeding Ability : Independent Adaptive Feeding Equipment : Regular Eating Poorly Due to Decreased Appetite : Yes Unplanned Weight Loss in Past 3-6 Months : No Malnutrition Screening Tool Total(mal) : 1 Malnutrition Screening Tool Risk Level : Patient not at risk Wendy Rodriges Rn - 11/26/2018 4:58 EST Psychosocial History Does Someone Depend on You for Care? : Yes Have Arrangements been Made? : Yes Do You Have a History of the Following? : Patient denies history Currently in Unsafe Situation : No Tried to Harm Yourself in the Past? : No Thoughts of Harming/Killing Yourself : No Wendy Rodriges Rn - 11/26/2018 4:58 EST Sleep Apnea Risk Assmt Hx of Obstructive Sleep Apnea Diagnosis : No Snore Loudly : No Tired, Fatigued, or Sleepy During Day : No Observed Stopping Breathing During Sleep : No Have/Are Being Treated for Hypertension : No STOP Sleep Apnea Risk Level Score : 0 STOP Sleep Apnea Risk Level : Low BMI Greater Than 35 kg/m2 : No Age over 50 Years Old : No Gender Male : No Neck Circumference Measured (cms) : 36 cm STOP-BANG Sleep Apnea Risk Level Score : 0 Neck Circumference Greater Than 40 cm : No Wendy Rodriges Rn - 11/26/2018 4:58 EST Valuables and Belongings Valuables and Belongings : Clothing, Jewelry, Personal devices, Personal items Clothing : Common streetwear Clothing Disposition : Bedside Personal Device Disposition : With patient Jewelry : Other: nose ring Jewelry Disposition : With patient Personal Devices : Contact lenses Personal Items : Cell phone, Credit cards, Wallet Personal Items Disposition : With patient Wendy Rodriges Rn - 11/26/2018 4:58 EST documented in this encounter Plan of Treatment Not on file documented as of this encounter Visit Diagnoses Not on filedocumented in this encounter
--- OUTSIDE RECORDS SUMMARY | 2025-06-18 15:11 | XMS_ITS | Encounter Summary ---
Author Organization [employer] ([place], [place], [place], [place]) Address [address] [place] [address] Care Team Providers Care Adjunct Instructor Chemistry Name Role Phone Unavailable Primary Care Provider Unavailabl e Encounter Details Date Type Department Care Team (Late st Contact Info) Description 11/26/2018 Transcribed Document [facility] [place] [address] [place] [address] ProviderBonnie MD [address] [place] [address] Social History Tobacco Use Types Packs/Day Years Used Date Smoking Tobacco: Never Assessed Comments Unknown Sex and Gender Information Value Date Recorded Sex Assigned at Not on file Legal Sex Female 6:06 PM CDT Gender Identity Not on file Sexual Orientation Not on file documented as of this encounter Miscellaneous Notes * Cerner Conversion Note - Historical ProviderMD - 11/26/2018 1:37 AM BASTING MARKER Pain Assessment Entered On: 12/03/2018 3:16 EST Performed On: 12/03/2018 0:47 EST by Amanda Bean RN Intervention Information: morphine Performed by Amanda Bean RN on 12/03/2018 00:17:00 EST morphine,2mg IV Push,Peripheral Line 1,Pain (Severe 7-10) Pain Assessment Pain Assessment : Follow-up assessment Pain Scale Goal : 3 Pain Scale Used : 0-10 Scale Amanda Bean RN - 12/03/2018 3:16 EST Pain Scale Intensity : 4 Amanda Bean RN - 12/03/2018 3:16 EST Image 4 - Images currently included in the form version of this document have not been included in the text rendition version of the form. documented in this encounter Plan of Treatment Not on file documented as of this encounter Visit Diagnoses Not on filedocumented in this encounter
--- OUTSIDE RECORDS SUMMARY | 2025-06-18 15:11 | XMS_ITS | Clinical Summary ---
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 You shall make no further disclosure of thisinformation without the specific, written, and informed release of theindividual to whom it pertains, or as otherwise permitted by law. A generalauthorization for the release of medical or other information is not sufficientfor the purposes of therelease of HIV test results or diagnoses. [id number] Allergies Active Allergy Reactions Criticality Noted Date Comments Amlodipine 07/08/2023 edema Cefaclor 07/08/2023 Penicillin G Rash Low 07/08/2023 rash Promethazine Rash Low 07/15/2023 Large hive/rash on arm where IV phenergan given. Trazodone 07/08/2023 hallucinations Medications pantoprazole (PROTONIX) 40 MG tabletIndication s:gastroesophage al reflux disease Take 1 tablet (40 mg total) by mouth every morning before breakfast. Indications: gastroesophageal reflux disease Active cholecalciferol, vitamin D3, 1000 units tabletIndication s:Prevention of Vitamin D Deficiency Take 2 tablets (2,000 Units total) by mouth daily. Indications: Prevention of Vitamin D Deficiency Active linaCLOtide (LINZESS) 290 mcg CapIndications:c hronic idiopathic constipation 1 capsule (290 mcg total) daily. Indications: chronic idiopathic constipation Active sulfaSALAzine (AZULFIDINE) 500 mg tablet Take 1 tablet (500 mg total) by mouth daily. Active cyanocobalamin, vitamin B-12, (VITAMIN B-12 INJ) Inject 10,000 Units as directed. Active clonazePAM (KLONOPIN) 0.5 MG tablet Take 1 tablet (0.5 mg total) by mouth at bedtime as needed for Anxiety. Activ e adalimumab (HUMIRA) 40 mg/0.8 mL PnKt Inject subcutaneously once. Active levocetirizine (XYZAL) 5 MG tablet Take 1 tablet (5 mg total) by mouth every evening. Active gabapentin (NEURONTIN) 600 MG tablet Take 1 tablet (600 mg total) by mouth 3 times a day. Active ferrous sulfate 325 (65 FE) MG EC tablet Take 1 tablet (325 mg total) by mouth daily with breakfast. Active tiZANidine (ZANAFLEX) 4 MG capsule Take 1 capsule (4 mg total) by mouth 3 times a day. Active busPIRone (BUSPAR) 5 MG tablet Take 1 tablet (5 mg total) by mouth 2 times a day. Active fluticasone propionate (FLONASE) 50 mcg/actuation nasal spray Use 1 spray into each nostril daily. Activ e montelukast (SINGULAIR) 10 mg tablet Take 1 tablet (10 mg total) by mouth at bedtime. Active phentermine 37.5 MG capsule Take 1 capsule (37.5 mg total) by mouth every morning before breakfast. Active buPROPion XL (WELLBUTRIN XL) 150 MG 24 hr tablet Take 1 tablet (150 mg total) by mouth daily. Active polyethylene glycol (GLYCOLAX) 17 gram/dose powderIndication s:constipation Dissolve one capful of powder (17 grams total) into 8 ounces of liquid and drink daily 238 g 3 2:21 PM EDT 07/16/20 Active naloxone (NARCAN) 4 mg/actuation [place] Apply 1 spray in one nostril if needed. Call 911. May repeat dose in other nostril if no response in 3 minutes. 2 each 1 3 2:21 PM EDT 07/16/20 Active senna 8.6 mg tabletIndication s:constipation Take 1 tablet by mouth daily as needed for Constipation. 30 tablet 3 2:21 PM EDT 07/16/20 Active Active Problems Problem Noted Date Diagnosed Date Generalized abdominal pain 07/09/2023 Ankylosing spondylitis 07/09/2023 H/O gastric bypass 07/09/2023 Urinary retention 07/09/2023 Primary hypertension 07/09/2023 Chronic back pain 07/09/2023 Anxiety 07/09/2023 Social History Tobacco Use Types Packs/Day Years Used Date Smoking Tobacco: Never Smokeless Tobacco: Never Tobacco Cessation:Counseling Given: No Alcohol Use Standard Drinks/Week Comments Never 0 (1 standard drink = 0.6 oz pur e alcohol) AUDIT-C Answer Date Recorded Q1: How often do you have a drink containing alcohol? Never 07/09/2023 Q2: How many drinks containi ng alcohol do you have on a typical day when you are drinking? Patient does not drink Q3: How often do you have si x or more drinks on one occasion? Never 07/09/2023 Comments No Sex and Gender Information Value Date Recorded Sex Assigned at Not on file Legal Sex Female 10:53 AM EDT Gender Identity Not on file Sexual Orientation Not on file Last Filed Vital Signs Vital Sign Reading Time Taken Comments Blood Pressure 103/61 07/16/2023 10:50 AM EDT Pulse 102 07/16/2023 10:50 AM EDT Temperature 36.8 C (98.2 F) 07/16/2023 10:50 AM EDT Respiratory Rate 16 07/16/2023 10:50 AM EDT Oxygen Saturation 95% 07/16/2023 10:50 AM EDT Inhaled Oxygen Concentration 95% 07/16/2023 1 0:50 AM EDT Weight 119.3 kg (263 lb) 07/14/2023 8:59 PM EDT Height 165.1 cm (5' 5 ) 07/14/2023 8:59 PM EDT Body Mass Index 43.77 07/14/2023 8:59 PM EDT Plan of Treatment Health Maintenance Due Date Last Done Comments ASCVD Assessment 1982 Diabetes Screening 1982 Hepatitis C Screening ([employer]) 1982 Depression Screening 2000 HIV Screening 2000 Immunization: Hepatitis B (1 of 3 - 19+ 3-dose series) 2001 Immunization: Zoster (1 of 2) 2001 Cervical Cancer Screening/Pap Smear ([employer]) 2012 Immunization: COVID-19 (3 - Pfizer risk series) 03/25/2021 02/25/2021, 01/28/2021 Mammogram ([employer]) 2022 Alcohol Misuse Screening 07/08/2024 07/08/2023 Renal Function/GFR 07/16/2024 07/16/2023, 0 07/14/2023, 07/13/2023, Additional history exists Immunization: Influenza (MyChart) (#1) 2025 08/18/2023, 08/31/2022, 09/15/2021, Additional history exists Immunization: DTaP/Tdap/Td (3 - Td or Tdap) 02/19/2031 02/19/2021, 12/20/1996 Immunization: Pneumococcal Aged Out 11/30/2018 N o longer eligible based on patient's age to complete this topic Medical Devices Implanted Type Area Enamel Buffer Device Identifier Shelf Expiration Date Model / Serial / Lot Synchromed Ii Pump Other Right: Abdomen [employer] MODEL [id number] / / Procedures Procedure Name Priority Date/Time Associated Diagnosis Comments RENAL FUNCTION PANEL W/EGFR Routine 07/16/2023 7:08 AM EDT from Last 3 Months or Most Recently Relevant to Health Maintenance Results * (ABNORMAL) Renal Function Panel w/EGFR (07/16/2023 7:08 AM EDT) Sodium 135 133 - 146 mmol/L 07/16/2023 8:38 AM EDT [facility] Potassium SEE COMMENT 3.5 - 5.3 mmol/L 07/16/2023 8:38 AM EDT [facility] Comment:Specimen Grossly Hem olyzed. Potassium result not obtainable. Recollect specimen. Chloride 104 98 - 110 mmol/L 07/16/2023 8:38 AM EDT [facility] CO2 21 21 - 33 mmol/L 07/16/2023 8:38 AM EDT [facility] Comment:MODERATE TO GROSS HE MOLYSIS EVIDENT. RESULTS MAY BE INFLUENCED. Anion Gap 10 3 - 16 mmol/L 07/16/2023 8:38 AM EDT [facility] BUN 14 7 - 25 mg/dL 07/16/2023 8:38 AM EDT [facility] Comment:MODERATE TO GROSS HE MOLYSIS EVIDENT. RESULTS MAY BE INFLUENCED. Creatinine 0.91 0.60 - 1.30 mg/dL 07/16/2023 8:38 AM EDT [facility] Comment:MODERATE TO GROSS HE MOLYSIS EVIDENT. RESULTS MAY BE INFLUENCED. Glucose 77 70 - 100 mg/dL 07/16/2023 8:38 AM EDT [facility] Comment:MODERATE TO GROSS HE MOLYSIS EVIDENT. RESULTS MAY BE INFLUENCED. Calcium 8.1(L) 8.6 - 10.3 mg/dL 07/16/2023 8:38 AM EDT [facility] Comment:MODERATE TO GROSS HE MOLYSIS EVIDENT. RESULTS MAY BE INFLUENCED. Phosphorus 4.8(H) 2.1 - 4.7 mg/dL 07/16/2023 8:38 AM EDT [facility] Comment:HEMOLYSIS EVIDENT. R ESULTS MAY BE INFLUENCED. Albumin 3.4(L) 3.5 - 5.7 g/dL 07/16/2023 8:38 AM EDT [facility] Comment:MODERATE TO GROSS HE MOLYSIS EVIDENT. RESULTS MAY BE INFLUENCED. Osmolality, Calculated 279 278 - 305 mOsm/kg 07/16/2023 8:38 AM EDT [facility] EGFR 81 07/16/2023 8:38 AM EDT [facility] Comment:As of 2022, the estimated GFR is calculated using the 2020 Chronic Kidney Disease Epidemiology Collaboration (CKD-EPI) equation. In line with the NKF-ASN Task Force Recommendations, this equation does not include a coefficient for race. A single eGFR value is calculated for each patient. The reference interval is >60 mL/min/1.73m2. eGFR values greater than 90 will be reported as >90mL/min/1.73m2. Reference: Rigoberto C, Sevreo M, Patsy DC, Sabino ND, Sophie CA, Bam LA, et al. A Unifying Approach for GFR Estimation: Recommendations of the NKF-ASN Task Force on Reassessing the inclusion of Race in Diagnosing Kidney Disease. Am J Kidney Dis. 2020. Plasma 07/16/2023 7:08 AM EDT 07/16/2023 8:04 AM EDT Guerita Stoll DO LAB BLOOD ORDERABLES Fin al Result [facility] [address] [place] [address], [place] from Last 3 Months or Most Recently Relevant to Health Maintenance Insurance [employer] [facility] Advance Directives For more information, please contact: [phone] * Full Code (Latest Code Status on File) Date Activated Date Inactivated Comments 07/08/2023 11:29 PM 07/16/2023 6:40 PM Care Teams Cocoa Bean Cleaner Relationship Specialty Start Date End Date Unknown, Attending Provider PCP - General 07/08/23
--- OUTSIDE RECORDS SUMMARY | 2025-06-18 15:11 | XMS_ITS | Encounter Summary ---
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 Care Management Assessment/Plan Entered On: 11/27/2018 14:56 EST Performed On: 11/27/2018 14:52 EST by Lexy Lewis RN Care Management Note Care Management Note : [id number] Documentation Status Complete : Yes Lexy Lewis RN - 11/27/2018 14:52 EST Patient History Information Obtained from, Care Mgt : Medical Record Emergency Contact #1 : Sonny Holly Emergency Contact #1 Emergency Contact #1 Relationship : Emergency Contact #2 : none Emergency Contact #2 Phone Number : none Emergency Contact #2 Relationship : none Living Situation : Home Patient Lives With : Child/Children, Parent(s), Spouse Mobility Assistance Prior to Admission : Independent Current Daily Living Assistance : None Current Home Treatments : None Patient History Note : 38 yo female pt transferred from [facility] with Hep A+. LFT's from admission to current: [id number]. Pt had c/o CP as well and Cards was consulted--Trop were neg. ECHO from OSH being obtained-if neg-cards will s/o. Pt has h/o gastric bypass and was also found to be dehydrated on admission. Pt only able to consume sm amounts of fluid orally since wt loss surgery. DCP: likely home with family. CM will follow. Lexy Lewis RN - 11/27/2018 14:52 EST Electronically signed by [facility], [facility] Conversion Pill Machine Operator Cerner at 02/21/2023 8:18 PM CDT documented in this encounter Plan of Treatment Not on file documented as of this encounter Visit Diagnoses Not on filedocumented in this encounter
--- OUTSIDE RECORDS SUMMARY | 2025-06-18 15:11 | XMS_ITS | Encounter Summary ---
Author Organization [employer] ([place], [place], [place], [place]) Address [address] [place] [address] Care Team Providers Care Formula Technician Name Role Phone Unavailable Primary Care Provider Unavailabl e Encounter Details Date Type Department Care Team (Late st Contact Info) Description 11/26/2018 Transcribed Document [facility] [address] [place] [address] ProviderBonnie MD [address] [place] [address] Social History Tobacco Use Types Packs/Day Years Used Date Smoking Tobacco: Never Assessed Comments Unknown Sex and Gender Information Value Date Recorded Sex Assigned at Not on file Legal Sex Female 6:06 PM CDT Gender Identity Not on file Sexual Orientation Not on file documented as of this encounter Miscellaneous Notes * Cerner Conversion Note - Bonnie ProviderMD - 11/26/2018 10:21 AM [employer] [address] [place] [address] Patient Information Name: JULIÁN PARR Age: 38 Years Date of : 1980 Arrival Time: 11/25/2018 18:20:00 Diagnosis Primary Care Physician: Provider Information Primary Provider: Chrystal Kim Secondary Provider: JULIÁN PARR has been given the following list of patient education materials, prescriptions and follow-up instructions: Follow-up Instructions: Patient Education Materials: Allergies: Ceclor; penicillin Medication Information: Home Meds Display ondansetron (Zofran 4 mg oral tablet) 1 Tab, Oral, Tab, Q4H, 0 Refill(s) promethazine (promethazine 12.5 mg oral tablet) 1 Tab, Oral, Tab, Q4H, PRN as needed for nausea/vomiting, # 60 Tab, 0 Refill(s) Laboratory or Other Results This Visit (last charted value for your 11/25/2018 visit) Hematology 11/26/18 03:12:00 WBC: 2.4 K/uL -- Normal range between ( 4.0 and 10.0 ) RBC: 4.37 Million/uL -- Normal range between ( 3.93 and 5.22 ) Hct: 34.0 % -- Normal range between ( 34.1 and 44.9 ) Hgb: 10.0 g/dL -- Normal range between ( 11.2 and 15.7 ) Platelet Count: 216 K/uL -- Normal range between ( 163 and 369 ) MCH: 22.9 pg -- Normal range between ( 25.6 and 32.2 ) MCHC: 29.4 Gram/dL -- Normal range between ( 32.2 and 36.5 ) MCV: 77.8 fL -- Normal range between ( 79.0 and 94.8 ) Slide Review: No RDW: 14.8 % -- Normal range between ( 11.6 and 14.4 ) MPV: 11.7 fL -- Normal range between ( 9.4 and 12.4 ) 11/25/18 19:22:00 ALYC #: 1 K/uL Microcytosis: 1+ Band Percent Man: 16 % -- Normal range between ( 5 and 11 ) Hypochromia: 1+ RBC Morphology: Abnormal ANC #: 1 K/uL [place] Percent Man: 16 % -- Normal range between ( 4 and 5 ) Baso Percent Man: 1 % -- Normal range between ( 0 and 1 ) Neutrophil Percent Man: 23 % -- Normal range between ( 50 and 65 ) Eos Percent Man: 3 % -- Normal range between ( 0 and 3 ) Anisocytosis: 1+ Platelet Ct Estimate: Adequate [place] Percent Man: 1 % -- Normal range between ( 0 and 1 ) Lymph Percent Man: 40 % -- Normal range between ( 24 and 44 ) Urinalysis 11/25/18 19:37:00 Ur RBC: 0-2 /HPF Urine Nitrite: Negative Urine Leukocyte Esterase: Negative Urine Appearance: Clear Urine Glucose Dipstick: Negative Urine Blood Dipstick: Negative Urine Type: U CleanCatch Urine Urobilinogen Dipstick: 2.0 EU/dL Urine Protein Dipstick: Negative Ur Bacteria: Trace Ur Squamous Epithelial Cells: 5-10 /HPF Urine Color: Yolie Ur WBC: 0-2 /HPF Urine Ketones Dipstick: Negative Ur Mucous: 2+ Urine pH Dipstick: 6.5 -- Normal range between ( 6.0 and 8.0 ) Urine Bilirubin Dipstick: Negative Urine Specific [place]: 1.013 -- Normal range between ( 1.005 and 1.030 ) Microbiology 11/25/18 19:22:00 Influenza A+B Antigen: See Result General Chemistry 11/26/18 03:12:00 Creatinine Level: 0.50 mg/dL -- Normal range between ( 0.55 and 1.02 ) Sodium Level: 140 mmol/L -- Normal range between ( 136 and 146 ) Potassium Level: 4.3 mmol/L -- Normal range between ( 3.5 and 5.1 ) Chloride Level: 108 mmol/L -- Normal range between ( 102 and 112 ) Carbon Dioxide Level: 26 mmol/L -- Normal range between ( 21 and 32 ) Anion Gap: 10 -- Normal range between ( 9 and 20 ) Bilirubin Total: 0.6 mg/dL -- Normal range between ( 0.2 and 1.3 ) A/G Ratio: 0.8 -- Normal range between ( 1.1 and 2.5 ) ALT: 1322 Units/Liter -- Normal range between ( 12 and 78 ) AST: 1863 Units/Liter -- Normal range between ( 5 and 37 ) Globulin: 3.2 Gram/dL -- Normal range between ( 1.5 and 4.5 ) Alk Phos: 153 Units/Liter -- Normal range between ( 27 and 136 ) Bun/Creatinine: 10.0 -- Normal range between ( 8.0 and 20.0 ) Calcium Level: 7.4 mg/dL -- Normal range between ( 8.5 and 10.1 ) eGFR : >60 mL/min/1.73m2 eGFR NonAfrican: >60 mL/min/1.73m2 Glucose Level: 82 mg/dL -- Normal range between ( 74 and 106 ) Blood Urea Nitrogen: 5 mg/dL -- Normal range between ( 7 and 22 ) Lactic Acid Level: 0.8 mmol/L -- Normal range between ( 0.4 and 2.0 ) Protein Total: 5.9 Gram/dL -- Normal range between ( 6.4 and 8.2 ) Albumin Level: 2.7 Gram/dL -- Normal range between ( 3.4 and 5.0 ) 11/25/18 19:27:00 Ammonia Level: 14.0 uMol/L -- Normal range between ( 11.0 and 32.0 ) 11/25/18 19:22:00 Amylase Level: 33 Units/Liter -- Normal range between ( 25 and 115 ) Bilirubin Direct: 0.3 mg/dL -- Normal range between ( 0.0 and 0.2 ) Magnesium Level: 2.2 mg/dL -- Normal range between ( 1.5 and 2.4 ) Lipase Level: 102 Units/Liter -- Normal range between ( 73 and 393 ) 11/25/18 18:53:00 Glucose POC2: 90 mg/dL -- Normal range between ( 70 and 110 ) Cardiac Specific Markers 11/25/18 23:45:00 Troponin I Ultra: <0.015 ng/mL -- Normal range between ( 0.015 and 0.045 ) Coagulation 11/26/18 03:12:00 INR: 1.1 -- Normal range between ( 0.9 and 1.1 ) PT: 12.3 Second(s) -- Normal range between ( 9.6 and 12.0 ) Toxicology 11/25/18 19:37:00 UDS Amp: NEGATIVE UDS [place]: NEGATIVE UDS Benzo: NEGATIVE UDS Jose: NEGATIVE UDS Opi: POSITIVE UDS PCP: NEGATIVE UDS TCA: NEGATIVE UDS THC: NEGATIVE UDS pH: 6.5 11/25/18 19:22:00 %Alcohol: <.00 Alcohol: <3 mg/dL Infectious Disease 11/25/18 22:30:00 Hep B Core: Non Reactive Hep C AB: Non Reactive Hep B Surf AG: Non Reactive Hep A IgM AB: Reactive Computed Tomography 11/25/18 20:11:33 CT Head WO: CT Head WO Diagnostic Radiology 11/25/18 19:58:13 CR Chest 1 Vw Portable: CR Chest 1 Vw Portable Ultrasound 11/26/18 08:27:21 US Gallbladder: US Gallbladder Medication Comment: Procedures: Laboratory Orders Name Status ALC Completed TRINY Completed RADHA Completed BILID Completed C BLOOD Ordered C BLOOD Ordered CBCD Completed CBCND Completed CBCND Ordered CMP Completed CMP Completed CMP Ordered DIFFMAN Completed GIPNLPCR Ordered HCGQT Ordered HEPPROF Completed LAC Completed LACTREFL Completed LIPASE Completed MG Completed POCGLUC Completed PT Completed RAPID FLU Completed TROPIULT Completed TROPIULT Completed UAMIC Completed UAMICRX Completed UDS2 Completed Radiology Orders Name Status CR Chest [address] Head WO Completed US Gallbladder Completed Cardiology Orders Name Status ECG Completed ECG Completed ECG Ordered This statement is to verify that JULIÁN PARR was seen at [facility] Emergency Department on ,11/26/2018 10:21:34. This is not a work excuse, if a work excuse was needed it will be in addition to this statement as a separate form. IMPORTANT: The examination and treatment you have received in the Emergency Department has been done to provide an appropriate evaluation and stabilizing treatment on an emergency basis only. Given the limited resources, it is not meant to be a substitute for complete medical care. The follow-up doctor you named will receive a copy of your records and all test reports. IT IS IMPORTANT THAT YOU SCHEDULE A FOLLOW-UP APPOINTMENT AND ARE RE-EVALUATED. You should report any new complaints, symptoms, or remaining problems at that time. IT IS IMPOSSIBLE FOR THE EMERGENCY DEPARTMENT TO RECOGNIZE AND TREAT ALL ELEMENTS OF INJURY OR ILLNESS IN A SINGLE VISIT. If you have been referred to a specialist physician, it means that we believe you may have a condition that requires the expertise of a specialist. KEEP IN MIND THAT THE SPECIALIST HAS HIS/HER OWN OFFICE POLICIES WHICH MAY REQUIRE PROPER INSURANCE OR PAYMENT UP FRONT BEFORE THE SPECIALIST WILL SEE YOU. It is your responsibility to call the specialist physician to make an appointment. We do not have the ability to identify specialists/physicians that work with specific insurance companies. Please be advised that all financial charges or billing practices are determined by that practice, not the hospital. If your insurance company requires that you see a specialist from their approved list, it is your responsibility to contact your insurance company to make those arrangements. It is also your responsibility to follow any other requirements of your insurance company necessary to obtain coverage for claims submitted. If you had special tests, such as EKG???s or X-rays, the interpretation of your tests given to you by the Emergency Dept. Physician is a preliminary report. Some fractures and illnesses fail to show up on preliminary tests. We will review them again within 24-48 hours. We will call you if there are any new suggestions. If your symptoms continue notify your physician. After you leave, you should follow the instructions below. In all events, you may obtain a copy of your Emergency Department visit from Medical Records. Please call to be directed to this department. We will bill your insurance; however, you are responsible today for any co-pay amounts. You will receive a separate bill for any services you may have received including: emergency, radiology, or pathology physicians. Please be sure we have an accurate contact phone number and address, should we need to call you for any reason. CIGARETTE SMOKING: The facts are clear; cigarette smoking will shorten your life. Smoking can cause many illnesses along the way. As a healthcare provider, [facility] recommends that you stop smoking. Assistance with quitting is available by contacting 2-416-KYYMSavvySystemsNOW. This is a free resource providing counseling, support, and referral. Or you may contact your personal physician. As part of your treatment plan, your physician may have prescribed a limited course of a controlled substance. This medication may be given to help people with moderate or severe pain or for other medical conditions, but there are risks involved with treatment. Common side effects may include nausea, constipation, drowsiness, sweating, itching, dry mouth, and rash. More serious side effects may include cognitive and motor impairment, like problems with thinking, concentrating, alertness, and movement (e.g. slowed reflexes), and driving and operating heavy machinery can be dangerous. It is important for you to talk to your physician if you have these side effects or questions. These controlled substances can produce physical dependence and be habit-forming if taken for an extended period of time, which means that the body has gotten used to them and may experience withdrawal symptoms if they are abruptly stopped. Withdrawal symptoms can include runny nose, sweating, goose bumps, diarrhea, abdominal cramping, rapid heartbeat, difficulty sleeping, and nervousness. The home medications listed are only as accurate as the information you provided. Please continue taking all of your medications prescribed by your Primary Care Provider unless specifically told to change or discontinue the medication. Please direct any questions regarding your home medications to your Primary Care Provider. YOU ARE THE MOST IMPORTANT FACTOR IN YOUR RECOVERY. ?? Follow your instructions carefully ?? Take your medicines as prescribed ?? Most important, see a provider as discussed. If you do not have a provider, we can provide a list of clinics Confidential This message and accompanying documents are covered by Electronic Communications Privacy Act 18 U.S.C. ???Sections 4520-4374,?? and contain information intended for the specified individual(s) only. This information is confidential. If you are not the intended recipient or an agent responsible for delivering it to the intended recipient, you are hereby notified that you have received the document in error and that any review, dissemination, copying, or the taking of any action based on the contents of this information is strictly prohibited. If you have received this communication in error, please notify us immediately by email, and delete the original message. STROKE is an EMERGENCY [employer] F.A.S.T! FACE ?? Facial droop ?? Uneven smile ARM ?? Arm numbness ?? Arm weakness SPEECH ?? Slurred speech ?? Difficulty speaking or understanding TIME ?? Call 911 and get to the hospital immediately Have the ambulance go to the nearest stroke center. STROKE Risk Factors High blood pressure High cholesterol Heart Disease Diabetes Smoking Heavy alcohol use Physical inactivity and obesity Atrial Fibrillation (irregular heartbeat) Family history of stroke Acknowledgment I hereby acknowledge receipt of these instructions and information above. I understand that I have received Emergency Treatment only which is not a substitute for complete medical care and acknowledge that all of my medical problems may not be known, identified, or treated prior to my release. I UNDERSTAND THE NEED TO ARRANGE FOLLOW-UP CARE WITH THE PHYSICIAN INDICATED. I UNDERSTAND THAT I SHOULD CONTACT MY PHYSICIAN IMMEDIATELY OR RETURN TO THE EMERGENCY DEPARTMENT IF MY CONDITION WORSENS, FAILS TO IMPROVE, OR NEW SYMPTOMS APPEAR. Vital Signs B/P PULSE RESP. RATE TEMPERATURE PULSE OX Signature of Emergency Provider Date / Time Signature of Emergency Nurse Date / Time Reminder: Be sure to sign up for the My [facility] patient portal, which gives you 29/05 access to your medical information ??? including these discharge instructions ??? using your computer, smartphone, or tablet. Just go to [employer] to get started. Questions? Call . Acknowledgment I hereby acknowledge receipt of these instructions and information above. I understand that I have received Emergency Treatment only which is not a substitute for complete medical care and acknowledge that all of my medical problems may not be known, identified, or treated prior to my release. I UNDERSTAND THE NEED TO ARRANGE FOLLOW-UP CARE WITH THE PHYSICIAN INDICATED. I UNDERSTAND THAT I SHOULD CONTACT MY PHYSICIAN IMMEDIATELY OR RETURN TO THE EMERGENCY DEPARTMENT IF MY CONDITION WORSENS, FAILS TO IMPROVE, OR NEW SYMPTOMS APPEAR. Signature of Patient / Responsible Person Date / Time Please provide a telephone number where you can be reached. The best time to call is between: It is permissable to leave a message if no answer: Yes____ No____ Nurse Providing Instructions: Emergency Physician: documented in this encounter Plan of Treatment Not on file documented as of this encounter Visit Diagnoses Not on filedocumented in this encounter
--- OUTSIDE RECORDS SUMMARY | 2025-06-18 15:11 | XMS_ITS | Clinical Summary ---
Author Organization [facility] Address [address] [place] [address] Care Team Providers Care Academic Associate Name Role Phone Sarita Gómez Primary Care Provider [phone] Lucie Reich MD Unavailable [phone] Allergies Active Allergy Reactions Criticality Noted Date Comments Amlodipine Swelling,Other - please document in the comment field High 03/07/2022 Cefaclor Unknown - Patient states they do not know rxn details Low 03/07/2022 Cephalosporins Unknown - Patient states they do not know rxn details Low 03/07/2022 Penicillins Unknown - Patient states they do not know rxn details Low 03/07/2022 Trazodone Hallucinations,Other - please document in the comment field High 10/14/2022 resolved when medication was discontinued Medications linaCLOtide (Linzess) 290 MCG capsule Take 1 capsule (290 mcg) by mouth 1 (one) time each day. Active pantoprazole (Protonix) 40 MG EC tablet Take 1 tablet (40 mg) by mouth 1 (one) time each day before breakfast. Do not crush, chew, or split. Active ferrous fumarate-vitamin C ER (Vipul-Sequels) 65-25 MG ER tablet Take 1 tablet (65 mg total) by mouth 1 (one) time each day. Do not crush, chew, or split. 30 tablet 2 01/10/20 23 Active sodium chloride 0.9 % solution 87.5 mL with bupivacaine PF 0.5 % solution 62.5 mg Inject 1.2 mL as directed continuously. New medication in pain pump. Intrathecal Active levocetirizine (Xyzal) 5 MG tablet Take 1 tablet (5 mg) by mouth 1 (one) time each day if needed. 12/04/19 Active azelastine (Astelin) 0.1 % nasal spray Administer 2 sprays into each nostril 2 (two) times a day. 12/19/19 Active sulfaSALAzine (Azulfidine) 500 MG EC tabletIndications: Spondylarthritis Take 2 tablets (1,000 mg) by mouth 2 (two) times a day. 120 tablet 2 05/03/20 Active spironolactone (Aldactone) 25 MG tablet Take 1 tablet (25 mg) by mouth 1 (one) time each day. Active Cyanocobalamin (B-12 Compliance Injection) 1000 MCG/ML kit Inject as directed every 30 (thirty) days. Active tiZANidine (Zanaflex) 4 MG tablet Take 1 tablet (4 mg) by mouth every night. 10/02/20 Active acetaminophen (Tylenol) 500 MG tablet Take 2 tablets (1,000 mg) by mouth 4 (four) times a day. 10/02/20 Active bisacodyl (Dulcolax) 10 MG suppository Insert 1 suppository (10 mg) into the rectum 1 (one) time each day if needed for constipation. 10/02/20 Active metoclopramide (Reglan) 10 MG tablet Take 1 tablet (10 mg) by mouth every 6 (six) hours if needed (nausea, vomiting). 10/02/20 Active ondansetron ODT (Zofran-ODT) 4 MG disintegrating tablet Take 1 tablet (4 mg) by mouth every 6 (six) hours if needed for nausea or vomiting. 10/02/20 Active oxyCODONE (Roxicodone) 5 MG immediate release tablet Take 1 tablet (5 mg) by mouth every 4 (four) hours if needed for moderate pain or severe pain. 10/02/20 Active polyethylene glycol (Miralax) 17 g packet Take 17 g by mouth 1 (one) time each day. 10/03/20 Active pregabalin (Lyrica) 100 MG capsule Take 1 capsule (100 mg) by mouth 2 (two) times a day. 10/02/20 Active senna-docusate (Ivania-Colace) 8.6-50 MG tablet Take 2 tablets by mouth 2 (two) times a day. 10/02/20 24 Active Upadacitinib ER (Rinvoq) 15 MG tablet sustained-release 24 hourIndications:An kylosing spondylitis of unspecified sites in spine (CMS/HCC) Take 1 tablet (15 mg) by mouth 1 (one) time each day. 30 tablet 6 11/20/19 25 Active zolpidem (Ambien) 5 MG tablet 01/11/20 25 Active Oyster Shell Calcium 500 MG tablet 11/20/19 25 Active Multiple Vitamins-Iron (Tab-A-Felipe/Iron/B eta Carotene) tablet 12/16/19 25 Active montelukast (Singulair) 10 MG tablet 12/11/19 25 Active meloxicam (Mobic) 7.5 MG tablet 10/10/20 24 Active losartan (Cozaar) 50 MG tablet 12/24/19 25 Active loratadine (Claritin) 10 MG tablet 10/10/20 24 Active hydroCHLOROthiazid e (HYDRODiuril) 25 MG tablet 12/24/19 25 Active ferrous sulfate 325 (65 Fe) MG EC tablet 11/20/19 25 Active cyclobenzaprine (Flexeril) 10 MG tablet 10/17/20 24 Active D 5000 125 MCG (5000 UT) capsule 11/20/19 25 Active cholecalciferol (Vitamin D-3) 50 MCG (2000 UT) capsule 12/11/19 25 Active carvedilol (Coreg) 25 MG tablet 12/11/19 25 Active Active Problems Problem Noted Date Diagnosed Date Saddle anesthesia 09/24/2024 Class III obesity with body mass index (BMI) of 40.0 or higher 05/15/2023 Obesity (BMI 30-39.9) 01/09/2023 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 01/09/2023 Iron deficiency 01/09/2023 Multiple joint pain 01/09/2023 History of Bob-en-Y gastric bypass 01/09/2023 Hypertension 03/20/2022 Encounters Date Type Department Care Team Description 03/28/2025 Telephone [facility] [address] [place] [address] Hien Toth R, COPPERSMITH APPRENTICE from Last 3 Months Immunizations Immunization Administration Dates Next Due Influenza, injectable, quadr ivalent, preservative free 08/18/2023,08/31/2022,09/15/2021,09/25,09/04/2019 Influenza, seasonal, injecta ble, preservative free 08/19/2024 Pneumococcal 20-wayne Conj Vaccine 08/19/2024 Pneumococcal Polysaccharide PPV23 11/30/2018 TD (adult), 2 Lf tetanus tox oid, preservative free, adsorbed 12/20/1996 Tdap 02/19/2021 Zoster, Recombinant 11/20/2024 Family History Medical History Relation Name Comments Drug abuse Brother 1 Segundo Drug abuse Brother 2 Segundo Parr Mental illness Daughter Cathie Diabetes Father Keiry shen Hyperlipidemia Father Keiry shen Hypertension Father Keiry shen Obesity Father Keiry shen Arthritis Mother Maria C Asthma Mother Maria C Depression Mother Maria C Diabetes Mother Maria C Heart disease Mother Maria C Hyperlipidemia Mother Maria C Hypertension Mother Maria C Kidney disease Mother Maria C MRSA Mother Maria C Obesity Mother Maria C Recurrent Infections Mother Maria C Skin Infections Mother Maria C Suicide Mother's Brother Lee Mental illness Son Davin Relation Name Status Comments Brother 1 Segundo Brother 2 Segundo Parr Alive Daughter Cathie Father Keiry shen Alive Mother Maria C Alive Mother's Brother Lee Son Davin Social History Tobacco Use Types Packs/Day Years Used Date Smoking Tobacco: Never Smokeless Tobacco: Never Alcohol Use Standard Drinks/Week Comments Never 0 (1 standard drink = 0.6 oz pur e alcohol) socially Humiliation, Afraid, Rape, and Kick questionnair e Answer Date Recorded Within the last year, have y ou been afraid of your partner or ex-partner? No 09/26/2024 Within the last year, have y ou been humiliated or emotionally abused in other ways by your partner or ex-partner? No Within the last year, have y ou been kicked, hit, slapped, or otherwise physically hurt by your partner or ex-partner? No 09/26/2024 Within the last year, have y ou been raped or forced to have any kind of sexual activity by your partner or ex-partner? No 09/26/2024 PHQ-2 Answer Date Recorded Patient Health Questionnaire-2 Score 0 11/20/2024 Hunger Vital Sign Answer Date Recorded Within the past 12 months, y ou worried that your food would run out before you got the money to buy more. Never true 09/26/20 24 Within the past 12 months, t he food you bought just didn't last and you didn't have money to get more. Never true 09/26/2024 PRAPARE - Transportation Answer Date Re corded In the past 12 months, has l ack of transportation kept you from medical appointments or from getting medications? No 09/07 In the past 12 months, has l ack of transportation kept you from meetings, work, or from getting things needed for daily living? No 09/26/2024 PHQ-9 Answer Date Recorded Patient Health Questionnaire-9 Score 0 11/20/2024 Housing Stability Vital Sign Answer Shen e Recorded In the last 12 months, was t here a time when you were not able to pay the mortgage or rent on time? No 09/26/2024 Number of Times Moved in the Last Year Not on fi le 09/26/2024 At any time in the past [address] [facility], were you homeless or living in a [facility] (including now)? No 09/26/2024 Utilities Answer Date Recorded In the past 12 months has th e electric, gas, oil, or water company threatened to shut off services in your home? No 09/26/2024 PHQ-2A Answer Date Recorded Depression Risk 0 01/11/2023 Comments No Sex and Gender Information Value Date Recorded Sex Assigned at Not on file Legal Sex Female 8:58 PM EDT Gender Identity Not on file Sexual Orientation Not on file Last Filed Vital Signs Vital Sign Reading Time Taken Comments Blood Pressure 121/86 01/13/2025 3:24 PM EDT Pulse 73 01/13/2025 3:24 PM EDT Temperature 37.2 C (98.9 F) 11/20/2024 8:21 AM EST Respiratory Rate 16 11/20/2024 8:21 AM EST Oxygen Saturation 97% 01/13/2025 3:24 PM EDT Inhaled Oxygen Concentration - - Weight 124 kg (273 lb) 01/13/2025 3:24 PM EDT Height 165.1 cm (5' 5 ) 01/13/2025 3:24 PM EDT Body Mass Index 45.43 01/13/2025 3:24 PM EDT Plan of Treatment Health Maintenance Due Date Last Done Comments [facility]-Infant/Child/Adol SDOH Screenings 1982 [facility]-Varicella Vaccines (1 of 2 - 13+ 2-dose series) 1995 [facility]-Hepatitis B Vaccines (1 of 3 - 19+ 3-dose series) 2001 HPV Vaccines (1 - 3-dose SCDM series) 2009 [id number] Vaccine (3 - Pfizer risk series) 03/25/2021 02/25/2021, 01/28/2021 [facility]- SDOH Screenings 03/26/2025 [facility]-Adult SDOH Screenings 03/26/2025 09/26/2024 [facility]-Influenza Vaccine (#1) 07/07/202508/19, 08/18/2023, 08/31/2022, Additional history exists [facility]-Depression Screening 11/20/2025 025, 11/20/2024, 01/11/2023 [facility]-DTaP,Tdap,and Td Vaccines (3 - Td or Tdap) 02/19/2031 02/19/2021, 12/20/1996 [facility]-Zoster Vaccines (2 of 2) 2032 11/20/2024 [facility]-HIV Screening Completed 12/14/2022 [facility]-Hepatitis C Screening Completed 05/03/2024, 06/2023 [facility]-Pneumococcal Vaccine: Pediatrics (0 to 5 Years) and At-Risk Patients (6 to 49 Years) Aged Out 08/19/2024, 11/30/2018 No longer eligibl e based on patient's age to complete this topic [facility]-Obesity Intervention Completed 025, 01/13/2025, 11/20/2024, Additional history exists [facility]-HIB Vaccines Aged Out No longer e ligible based on patient's age to complete this topic [facility]-Hepatitis A Vaccines Aged Out No longer eligible based on patient's age to complete this topic [facility]-IPV Vaccines Aged Out No longer e ligible based on patient's age to complete this topic [facility]-Rotavirus Vaccines Aged Out No lo nger eligible based on patient's age to complete this topic Medical Devices Implanted Type Area [employer] Building [employer] Device Identifier Shelf Expiration Date Model / Serial / Lot Synchromed Ii Pain Pump Flank Medtronic [id number] 0 / [id number] / Catheter Pain Pump Flank Medtronic 8780 / [id number] / Procedures Procedure Name Priority Date/Time Associated Diagnosis Comments ACUTE HEPATITIS PANEL Routine 05/03/2024 12:56 PM EDT High risk medication use HIV 1/2 ANTIBODY/ANTIGEN SCREEN WITH REFLEX TO HIV I/II DIFFERENTIATION Routine 12/14/2022 10:41 AM EST Pain in unspecified joint History of inflammation of sacroiliac joint from Last 3 Months or Most Recently Relevant to Health Maintenance Results * Hepatitis panel, acute (05/03/2024 12:56 PM EDT) Hepatitis B Surf Antigen Negative Negative 05/03/2024 3:53 PM EDT [facility] Hepatitis C Antibody Negative Negative 05/03/2024 3:53 PM EDT [facility] Hepatitis A Antibody IgM Negative Negative 05/03/2024 3:53 PM EDT [facility] Comment: Repeat testing on a later sample may be helpful. If repeat testing is indeterminate, no further testing is indicated. Previously prelim verified as Indeterminate on 05/03/2024 at 1521 EDT. Indeterminate is no longer reportable. Hepatitis B Core Antibody IgM Negative Negative 05/03/2024 3:53 PM EDT [facility] Blood Venous blood specimen / Unknown Venipuncture / Unknown 05/03/2024 12:56 PM EDT 05/03/2024 12:56 PM EDT november R Navneet COPPERSMITH APPRENTICE LAB BLOOD ORDERABLES Final Result [facility] [address] [place] [address] * HIV 1 & 2 Antibody/Antigen Screen (12/14/2022 10:41 AM EST) HIV 1 & 2 Antibody/Antigen Screen Non Reactive Non Reactive 12/14/2022 12:55 PM EST [facility] Comment:Screening for HIV 1 & 2 antibodies, and P24 antigen is NONREACTIVE. No confirmatory testing is required. 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 Yes Care Teams Academic Associate Relationship Specialty Start Date End Date Sarita Gómez PA [address] [place] [address] PCP - General 01/07/22 Lucie Reich MD [address] [place] [address] Surgeon Neurosurgery 04/08/22
--- OUTSIDE RECORDS SUMMARY | 2025-06-18 15:12 | XMS_ITS | Encounter Summary ---
Author Organization [employer] ([place], [place], [place], [place]) Address [address] [place] [address] Care Team Providers Care Vp Scientific Affairs Name Role Phone Unavailable Primary Care Provider Unavailabl e Encounter Details Date Type Department Care Team (Late st Contact Info) Description 11/29/2018 Transcribed Document [facility] [place] Family Medicine [address] [place] [address] ProviderBonnie MD [address] [place] [address] Social History Tobacco Use Types Packs/Day Years Used Date Smoking Tobacco: Never Assessed Comments Unknown Sex and Gender Information Value Date Recorded Sex Assigned at Not on file Legal Sex Female 6:06 PM CDT Gender Identity Not on file Sexual Orientation Not on file documented as of this encounter Miscellaneous Notes * Cerner Conversion Note - Bonnie ProviderMD - 11/29/2018 2:20 PM FREEZER UNLOADER Patient: JULIÁN PARR Age: 38 years Sex: Female : 1980 Associated Diagnoses: None Author: LINDA JAQUEZ II, MD-INT Subjective still with nausea, and abd pain persists urine darker Review of Systems Constitutional: [No fevers, chills, sweats] Eye: [No recent visual problems] ENMT: [No ear pain, nasal congestion, sore throat] Respiratory: [No shortness of breath, cough] Cardiovascular: [No Chest pain, palpitations, syncope] Gastrointestinal: [+ nausea, vomiting, +abd pain Health Status Allergies: Allergic Reactions (Selected) Severity Not Documented Ceclor- No reactions were documented. Penicillin- Seizure., Allergies (2) Active Reaction Ceclor None Documented penicillin seizure Current medications: (Selected) Inpatient Medications Ordered Ativan: 0.5 mg, IV Push, Q4H, PRN: Agitation Dextrose 5% with 0.9% NaCl intravenous solution 1,000 mL: 125 mL/Hr, IntraVENous DuoNeb 0.5 mg-2.5 mg/3 mL inhalation solution: 3 mL, Nebulized Inhalation, Q6H, PRN: Shortness of Breath Flagyl: 500 mg, 100 mL, 100 mL/Hr, IV Piggyback, Q6H Levaquin: 750 mg, 150 mL, 100 mL/Hr, IV Piggyback, [id number] NaCl 0.9% bolus: 1,000 mL, 1,000 mL/Hr, IV Piggyback, 1-Time NaCl 0.9% bolus: 1,000 mL, 1,000 mL/Hr, IV Piggyback, 1-Time Pepcid: 20 mg, Oral, Daily Vitamin K1: 10 mg, 1 mL, 200 mL/Hr, IV Piggyback, Daily Zofran: 4 mg, IV Push, Q4H, PRN: Nausea acetylcysteine 600 mg oral capsule: 1,200 mg, 2 Cap, Oral, BID cloNIDine: 0.1 mg, Oral, Q4H, PRN: Hypertension heparin: 5,000 Units, SubCutaneous, Q8H hydrALAZINE: 10 mg, IV Push, Q6H, PRN: Hypertension lactulose: 20 Gram, Oral, Q8H morphine: 2 mg, IV Push, Q2H, PRN: Pain (Severe 7-10) oxyCODONE: 10 mg, Oral, Q4H, PRN: Abdominal Pain promethazine: 12.5 mg, IV Push, Q6H, PRN: Nausea/Vomiting Pending Complete pneumococcal 23-polyvalent vaccine: 0.5 mL, IntraMuscular, [id number] potassium chloride Inj Intermittent 10 mEq + lidocaine injection Intermittent 1 mL + Sodium Chlorid...: 10 mEq, 5 mL, 101 mL/Hr, IV Piggyback, Q1H Documented Medications Documented PriLOSEC 20 mg oral delayed release capsule: 1 Cap, Oral, Daily, 0 Refill(s) Zofran 4 mg oral tablet: 1 Tab, Oral, Q4H, PRN: Nausea/Vomiting, 0 Refill(s) promethazine 12.5 mg oral tablet: 1 Tab, Oral, Q6H, PRN: for nausea/vomiting, 60 Tab, 0 Refill(s), Home Medications (3) Active PriLOSEC 20 mg oral delayed release capsule 20 mg = 1 Cap, Oral, Daily promethazine 12.5 mg oral tablet 12.5 mg = 1 Tab, PRN, Oral, Q6H Zofran 4 mg oral tablet 4 mg = 1 Tab, PRN, Oral, Q4H , Medications (18) Active Scheduled: (9) acetylcysteine 600 mg cap 1,200 mg 2 Cap, Oral, BID famotidine 20 mg tab 20 mg 1 Tab, Oral, Daily heparin 5,000 units/1 mL inj 5,000 Units 1 mL, SubCutaneous, Q8H lactulose 20 g/30 mL oral liq 20 Gram 30 mL, Oral, Q8H levofloxacin/D5w *PREMIX* 750 mg 150 mL, IV Piggyback, [id number] metroNIDAZOLE 500 mg 100 mL, IV Piggyback, Q6H NaCl 0.9% 1,000 mL, IV Piggyback, 1-Time NaCl 0.9% 1,000 mL, IV Piggyback, 1-Time phytonadione 10 mg 1 mL, IV Piggyback, Daily Continuous: (1) Dextrose 5% NaCl 0.9% 1,000 mL 1,000 mL, IntraVENous, 125 mL/Hr PRN: (8) albuterol-ipratropium inh 3 mL 3 mL, Nebulized Inhalation, Q6H cloNIDine 0.1 mg tab 0.1 mg 1 Tab, Oral, Q4H hydrALAZINE 20 mg/1 mL inj 10 mg 0.5 mL, IV Push, Q6H LORazepam 2 mg/mL inj 0.5 mg 0.25 mL, IV Push, Q4H morphine 2 mg/1 ml inj 2 mg 1 mL, IV Push, Q2H ondansetron 4 mg/2 mL inj 4 mg 2 mL, IV Push, Q4H oxyCODONE 5 mg tab 10 mg 2 Tab, Oral, Q4H promethazine 25 mg/1 mL inj 12.5 mg 0.5 mL, IV Push, Q6H Problem list: Medical Metrorrhagia / SNOMED CT 988247395 / Confirmed Endometriosis / SNOMED CT 411421325 / Confirmed Dyspareunia in female / SNOMED CT 907880572 / Confirmed Anemia / SNOMED CT 452112179 / Confirmed Abnormal vaginal bleeding / SNOMED CT 503051759 / Confirmed heavy, Active Problems (5) Abnormal vaginal bleeding Anemia Dyspareunia in female Endometriosis Metrorrhagia Objective Intake and Output Intake & Output Totals Last 24 Hours (7a-7a) Intake (30 Events) Continuous Infusions (1500 mL) Medications (881 mL) Output (4 Events) Emesis (150 mL) Medrano Catheter (2500 mL) Input Total: 2381 mL Output Total: 2650 mL Balance: -269 mL VS/Measurements Vitals Signs (last 24 hrs) Last Charted Minimum Maximum Temp 99 (NOV 29 11:39) 97.2 (NOV 28 18:10) 99 (NOV 29:39) Mon HR 75 (NOV 29:39) 70 (NOV 29 07:01) 79 (NOV 28 23:30) Resp Rate 15 (NOV 29:39) 15 (NOV 29:39) 20 (NOV 29 07:01) SBP 97 (NOV 29:39) 97 (NOV 29 11:39) 112 (NOV 29 03:15) DBP L 53 (NOV 29:39) L 53 (NOV 29 11:39) 77 (NOV 29 03:15) MAP 64 (NOV 29:39) 64 (NOV 29 11:39) 85 (NOV 29 03:15) SpO2 96 (NOV 29 11:39) L 93 (NOV 29 07:01) 98 (NOV 28 18:10) General: Alert and oriented, Mild distress. Appearance: Ill. Eye: Pupils are equal, round and reactive to light, Normal conjunctiva. HENT: Normocephalic, Normal hearing, Oral mucosa is moist. Neck: Supple, Non-tender, No jugular venous distention, No thyromegaly. Respiratory: Respirations are non-labored, Breath sounds are equal, Symmetrical chest wall expansion, No chest wall tenderness. Cardiovascular: Normal rate, Regular rhythm, No murmur, No edema. Gastrointestinal: Soft, Non-tender, Non-distended, Normal bowel sounds, No organomegaly, ruq ttp, . Genitourinary: No costovertebral angle tenderness, tea colred urie in medrano. Musculoskeletal: Normal strength, No tenderness. Integumentary: Warm, Dry, No pallor. Neurologic: Alert, No focal deficits, Normal deep tendon reflexes. Psychiatric: Cooperative, Appropriate mood & affect. Results Review General results Interpretation: NOV 29 03:29 142 108 L 4 / H 108 L 3.3 28 0.60 \ Labs (Last four charted values) WBC L 2.7 (NOV 27) L 2.4 (NOV 26) L 2.9 (NOV 25) HB L 10.2 (NOV 27) L 10.0 (NOV 26) 13.0 (NOV 25) HCT L 34.0 (NOV 27) L 34.0 (NOV 26) 43.4 (NOV 25) Plt 201 (NOV 27) 216 (NOV 26) 235 (NOV 25) Na 142 (NOV 29) 141 (NOV 28) 139 (NOV 27) 140 (NOV 26) K L 3.3 (NOV 29) L 3.4 (NOV 28) 3.7 (NOV 27) 4.3 (NOV 26) Cl 108 (NOV 29) 110 (NOV 28) 107 (NOV 27) 108 (NOV 26) CO2 28 (NOV 29) 26 (NOV 28) 24 (NOV 27) 26 (NOV 26) BUN L 4 (NOV 29) L 5 (NOV 28) L 5 (NOV 27) L 5 (NOV 26) Cr 0.60 (NOV 29) L 0.50 (NOV 28) L 0.50 (NOV 27) L 0.50 (NOV 26) Glu R H 108 (NOV 29) H 120 (NOV 28) H 116 (NOV 27) 82 (NOV 26) Ca L 7.1 (NOV 29) L 7.5 (NOV 28) L 7.8 (NOV 27) L 7.4 (NOV 26) Lactic 0.8 (NOV 26) 1.0 (NOV 25) PT H 15.9 (NOV 29) H 15.2 (NOV 28) H 12.3 (NOV 26) INR H 1.5 (NOV 29) H 1.4 (NOV 28) 1.1 (NOV 26) AST H 2080 (NOV 29) H 2793 (NOV 28) H 3202 (NOV 27) H 1863 (NOV 26) ALT H 2147 (NOV 29) H 2285 (NOV 28) H 2209 (NOV 27) H 1322 (NOV 26) ALK P H 188 (NOV 29) H 195 (NOV 28) H 223 (NOV 27) H 153 (NOV 26) T Bili H 3.1 (NOV 29) H 2.0 (NOV 28) H 1.7 (NOV 27) 0.6 (NOV 26) PTN L 5.4 (NOV 29) L 5.2 (NOV 28) L 5.6 (NOV 27) L 5.9 (NOV 26) ALB L 2.6 (NOV 29) L 2.4 (NOV 28) L 2.5 (NOV 27) L 2.7 (NOV 26) Lipase 102 (NOV 25) Troponin <0.015 (NOV 25) <0.015 (NOV 25) Radiology Results (Last 48 hours) [id number] -- 11/25/2018 22:24 MRI MRCP WO (11/29/2018 09:21) Result: MR ABDOMEN, MRCP PROTOCOLHISTORY: Abdominal pain.TECHNIQUE: Multiplanar MR without contrast using heavily weighted H1cklwxoomc for evaluation of biliary tree.FINDINGS: No intrahepatic biliary ductal dilatation is seen. Periportaledema is present. Portal vein is mildly enlarged. Portal hypertension isnot excluded.Gallbladder wall thickening is present. Curvilinear low signal intensityis seen within the gallbladder lumen which could be sludge or related toacute gallbladder disease.There is no ascites. No adenopathy is seen.Pancreatic duct is normal. IMPRESSION: 1. Abnormal appearance of thick-walled gallbladder. Acute gallbladderdisease not excluded. Consider hepatobiliary imaging.2. Nonspecific periportal edema which could be related to gallbladderdisease.3. Recommend hepatobiliary imaging.4. Mild splenomegaly. ACC: [id number] ORDER: Culture Blood DATE: 11/26/2018 01:28 SOURCE: Blood SITE: Reports Pre 11/29/2018 07:33 Aerobic bottle gram stain Gram Positive Rods In 1 of 2 blood culture bottles drawn. Positive Blood culture. Note cultures and clinical presentation before starting antibiotics. Blood culture does not meet the specified criteria for PCR testing. Called results to RANJEET TEAGUE 11/29/2018 07:33:32 Results read back and verified. Pre 11/29/2018 06:01 No growth at 3 days. Pre 11/28/2018 06:01 No growth at 2 days. Pre 11/27/2018 06:01 No growth at 1 day. Pre 11/26/2018 16:03 Culture less than 24 Hrs old == ACC: [id number] ORDER: Culture Blood DATE: 11/26/2018 01:28 SOURCE: Blood SITE: Reports Pre 11/29/2018 06:01 No growth at 3 days. Pre 11/28/2018 06:01 No growth at 2 days. Pre 11/27/2018 06:01 No growth at 1 day. Pre 11/26/2018 16:03 Culture less than 24 Hrs old == ACC: [id number] ORDER: Flu A/B Rapid Screen DATE: 11/25/2018 19:01 SOURCE: Nasal SITE: Reports Final 11/25/2018 20:07 Negative for Rapid Influenza A and B Antigen Rapid Influenza tests are for screening purposes only. Negative tests should be confirmed by more sensitive methodologies. == Impression and Plan 1. Hepatitis A. Acute, continue symptomatic treatment, intravenous fluids, pain control. continue Acetyl-Cysteine worsening obstructive jaundice and evloving coagulopathy...? nutirtional ( Vitasmin K given) if INR worsens, will consider transfer to tertiary care/transplant center MRCP noted; doubt HIDA would be conclusive in face of acute viral hepatitis, await GI opinion 2. Acute gastroenteritis. Patient with abdominal pain, nausea, vomiting, diarrhea. Contiue intravenous fluids. continu empiric intravenous antibiotics LVQ and Flagyl, and the patient will be monitored closely. 3. Dehydration. continue intravenous fluids. 4. Rule out acute cholecystitis. As per patient, she had been diagnosed with cholecystitis and evaluated, and patient was told that she needs surgical reevaluation when she feels better. Await mrcp. contiue intravenous fluids, empiric intravenous antibiotic with LVQ flagyl 5. Chest pain. Recheck troponin. consider Cardiology evaluation if recurrs. Echo from [facility], EF 55%. No immediate CV evaluation indicated per cardiology 6. Anxiety. start Ativan as needed. Gastrointestinal prophylaxis. Pepcid. Deep venous thrombosis prophylaxis. Heparin. Discharge goals: declining lfts, not tolerating PO Time spent: 35 min lfts worsening..continue to trend closely. given worsening LFT's and INR complexity increasing. MRCP reviewed. Electronically signed by Ceasar Higginbotham Conversion Office Workforce Planner Cerner at 02/21/2023 8:19 PM CDT documented in this encounter Plan of Treatment Not on file documented as of this encounter Visit Diagnoses Not on filedocumented in this encounter
--- OUTSIDE RECORDS SUMMARY | 2025-06-18 15:12 | XMS_ITS | Clinical Summary ---
Author Organization [employer] ([place], [place], [place], [place]) Address [address] [place] [address] Care Team Providers Care Marketing Effectiveness Manager Name Role Phone Unavailable Primary Care Provider Unavailabl e Social History Tobacco Use Types Packs/Day Years Used Date Smoking Tobacco: Never Assessed Comments Unknown Sex and Gender Information Value Date Recorded Sex Assigned at Not on file Legal Sex Female 6:06 PM CDT Gender Identity Not on file Sexual Orientation Not on file Plan of Treatment Not on file
--- OUTSIDE RECORDS SUMMARY | 2025-06-18 15:12 | XMS_ITS | Encounter Summary ---
Author Organization [employer] ([place], [place], [place], [place]) Address [address] [place] [address] Care Team Providers Care Designated Broker Name Role Phone Unavailable Primary Care Provider Unavailabl e Encounter Details Date Type Department Care Team (Late st Contact Info) Description 12/03/2018 Transcribed Document [facility] [place] Family Medicine [address] [place] [address] ProviderBonnie MD [address] [id number] Social History Tobacco Use Types Packs/Day Years Used Date Smoking Tobacco: Never Assessed Comments Unknown Sex and Gender Information Value Date Recorded Sex Assigned at Not on file Legal Sex Female 6:06 PM CDT Gender Identity Not on file Sexual Orientation Not on file documented as of this encounter Miscellaneous Notes * Cerner Conversion Note - Historical ProviderMD - 12/03/2018 7:42 AM PROJECT ARCHITECT Patient: JULIÁN PARR Age: 38 Years Sex: Female : 1980 Subjective continues to report nausea and vomiting Objective Vitals & Measurements T: 37.4 ??C HR: 85 (Monitored) RR: 16 BP: 107/68 MAP: 76 SpO2: 95% Physical Exam General: Awake, alert, oriented. No acute distress. Head: Atraumatic, normocephalic Eyes: PERRL, EOMI, Anicteric sclera, [place] conjunctiva Neck: Supple, no mass palpable, no bruits heard bilaterally Heart: S1S2, regular rate and rhythm, no murmurs, clicks, or gallops heard Lungs: Clear to auscultation bilaterally, no rales, rhonchi or wheezes Abdomen: Soft, mild right upper quadrant tenderness, normal bowel sounds heard Extremities: No clubbing, cyanosis or edema. Bilateral pedal pulses strong and palpable. Neurologic: No facial droop noted, no slurred speech, no focal neurological deficits Lab Results Blood Gases (Current Encounter/Past 24 Hours) No Blood Gas Results Found (Past 24 Hours) Electrolytes(BMP) Results (Current Encounter/Past 24 Hours) Sodium Level 141 mmol/L 12/03/2018 05:05 Potassium Level 3.9 mmol/L 12/03/2018 05:05 Chloride Level 106 mmol/L 12/03/2018 05:05 Carbon Dioxide Level 25 mmol/L 12/03/2018 05:05 Anion Gap 14 12/03/2018 05:05 Blood Urea Nitrogen 3 mg/dL LOW 12/03/2018 05:05 Glucose Level 84 mg/dL 12/03/2018 05:05 Calcium Level 8.0 mg/dL LOW 12/03/2018 05:05 Creatinine Level 0.50 mg/dL LOW 12/03/2018 05:05 Cardiac Markers (Current Encounter/Past 24 Hours) No Cardiac Marker Results Found (Past 24 Hours) CBC Results (Current Encounter/Past 24 Hours) WBC 3.4 K/uL LOW 12/02/2018 03:03 Hct 33.4 % LOW 12/02/2018 03:03 Hgb 10.2 g/dL LOW 12/02/2018 03:03 Platelet Count 224 K/uL 12/02/2018 03:03 CMP Results (Current Encounter/Past 24 Hours) eGFR NonAfrican >60 mL/min/1.73m2 12/03/2018 05:05 Bun/Creatinine 6.0 LOW 12/03/2018 05:05 eGFR >60 mL/min/1.73m2 12/03/2018 05:05 A/G Ratio 0.8 LOW 12/03/2018 05:05 Protein Total 5.4 Gram/dL LOW 12/03/2018 05:05 Creatinine Level 0.50 mg/dL LOW 12/03/2018 05:05 Globulin 3.0 Gram/dL 12/03/2018 05:05 Sodium Level 141 mmol/L 12/03/2018 05:05 Potassium Level 3.9 mmol/L 12/03/2018 05:05 Chloride Level 106 mmol/L 12/03/2018 05:05 Carbon Dioxide Level 25 mmol/L 12/03/2018 05:05 Anion Gap 14 12/03/2018 05:05 Alk Phos 187 Units/Liter [place] 12/03/2018 05:05 ALT 672 Units/Liter [place] 12/03/2018 05:05 AST 389 Units/Liter [place] 12/03/2018 05:05 Blood Urea Nitrogen 3 mg/dL LOW 12/03/2018 05:05 Glucose Level 84 mg/dL 12/03/2018 05:05 Albumin Level 2.4 Gram/dL LOW 12/03/2018 05:05 Bilirubin Total 5.3 mg/dL [place] 12/03/2018 05:05 Calcium Level 8.0 mg/dL LOW 12/03/2018 05:05 Coagulation Results (Current Encounter/Past 24 Hours) PT 13.1 Second(s) [place] 12/03/2018 04:43 INR 1.2 [place] 12/03/2018 04:43 Creatinine Clearance (Current Encounter/Past 24 Hours) Creatinine Level 0.50 mg/dL [facility] 12/03/2018 05:05 Bun/Creatinine 6.0 LOW 12/03/2018 05:05 Diagnostic Results No Radiology Results Found Assessment/Plan Altered mental state R41.82 Altered mental status [id number] Dehydration E86.0, Dehydration E86.0, Dehydration E86.0 Hepatitis A B15.9 Orders: BMP Basic Metabolic Panel CBC w/ Auto Diff Culture Urine Diet, Adult Hepatic Function Panel Urinary Catheter Removal 1. Hepatitis A. Acute, improving. treatment, intravenous fluids, pain control. Jaundice noted, LFTs trending down, INR decreasing. Symptoms remain, Small improvement in symptoms, continue Zofran for nausea. unlikely to need transfer to liver transplant center. 2. Acute gastroenteritis. Patient with abdominal pain, nausea, vomiting persist. Contiue intravenous fluids. continue empiric intravenous antibiotics Levaquin and Flagyl, and the patient will be monitored closely. Wants to try solid food today. 3. Dehydration. continue intravenous fluids. Dc medrano. 4. Anxiety. start Ativan as needed. apical clean resolved Gastrointestinal prophylaxis. Pepcid. Deep venous thrombosis prophylaxis. Heparin. Full code Likely discharge in 24-48 hours when symptoms have subsided Electronically signed by Neftaly Ranken [facility] Conversion Case Monitor Cerner at 02/21/2023 8:16 PM CDT documented in this encounter Plan of Treatment Not on file documented as of this encounter Visit Diagnoses Not on filedocumented in this encounter
--- OUTSIDE RECORDS SUMMARY | 2025-06-18 15:12 | XMS_ITS | Encounter Summary ---
Author Organization [employer] ([place], [place], [place], [place]) Address [address] [place] [address] Care Team Providers Care Auto Air Conditioning Installer Name Role Phone Unavailable Primary Care Provider Unavailabl e Encounter Details Date Type Department Care Team (Late st Contact Info) Description 11/30/2018 Transcribed Document [facility] [place] Family Medicine [address] [place] [address] ProviderBonnie MD [address] [place] [address] Social History Tobacco Use Types Packs/Day Years Used Date Smoking Tobacco: Never Assessed Comments Unknown Sex and Gender Information Value Date Recorded Sex Assigned at Not on file Legal Sex Female 6:06 PM CDT Gender Identity Not on file Sexual Orientation Not on file documented as of this encounter Miscellaneous Notes * Cerner Conversion Note - Historical ProviderMD - 11/30/2018 2:00 AM LOTUS NOTES DEVELOPER Animal Behaviorist Details Entered On: 11/30/2018 3:10 EST Performed On: 11/30/2018 2:00 EST by Rocky Rodriguez Rn Order Details Transport Mode Order Detail : Wheelchair Isolation Precautions Order Detail : Contact precautions, Standard Precautions Order Detail : 0 IV Order Detail : 1 Oxygen Order Detail : 0 Nurse Collect Order Detail : 0 Lift/Transfer : Moderate assist Central Line Order Detail : No Room Service : Appropriate Arterial Line : No Rocky Rodriguez, Rn - 11/30/2018 3:10 EST documented in this encounter Plan of Treatment Not on file documented as of this encounter Visit Diagnoses Not on filedocumented in this encounter
--- OUTSIDE RECORDS SUMMARY | 2025-06-18 15:12 | XMS_ITS | Encounter Summary ---
Author Organization [employer] ([place], [place], [place], [place]) Address [address] [place] [address] Care Team Providers Care Pipe Bowls Paint Trimmer Name Role Phone Unavailable Primary Care Provider Unavailabl e Encounter Details Date Type Department Care Team (Late st Contact Info) Description 11/26/2018 Transcribed Document [facility] [place] Family Medicine [address] [place] [address] ProviderBonnie MD [address] [place] [address] Social History Tobacco Use Types Packs/Day Years Used Date Smoking Tobacco: Never Assessed Comments Unknown Sex and Gender Information Value Date Recorded Sex Assigned at Not on file Legal Sex Female 6:06 PM CDT Gender Identity Not on file Sexual Orientation Not on file documented as of this encounter Miscellaneous Notes * Cerner Conversion Note - Historical ProviderMD - 11/26/2018 10:20 AM [facility] ED Discharge Entered On: 11/26/2018 10:20 EST Performed On: 11/26/2018 10:20 EST by CARMINA PAULSON, wind development director Process Patient Disposition : Admit/Observe CARMINA PAULSON RN - 11/26/2018 10:20 EST Admission, ED `Nurse Report (Hand Off) : Called CARMINA PAULSON RN - 11/26/2018 10:20 EST Electronically signed by Neftaly [facility] Conversion Snack Stewardess Cerner at 02/21/2023 7:59 PM CDT documented in this encounter Plan of Treatment Not on file documented as of this encounter Visit Diagnoses Not on filedocumented in this encounter
--- OUTSIDE RECORDS SUMMARY | 2025-06-18 15:12 | XMS_ITS | Encounter Summary ---
Author Organization [employer] ([place], [place], [place], [place]) Address [address] [place] [address] Care Team Providers Care Supervisor Customer Records Division Name Role Phone Unavailable Primary Care Provider Unavailabl e Encounter Details Date Type Department Care Team (Late st Contact Info) Description 12/04/2018 Transcribed Document [facility] [place] [facility] [place] [address] ProviderBonnie MD [address] [place] [address] Social History Tobacco Use Types Packs/Day Years Used Date Smoking Tobacco: Never Assessed Comments Unknown Sex and Gender Information Value Date Recorded Sex Assigned at Not on file Legal Sex Female 6:06 PM CDT Gender Identity Not on file Sexual Orientation Not on file documented as of this encounter Miscellaneous Notes * Cerner Conversion Note - Bonnie ProviderMD - 12/04/2018 7:49 AM PARAMEDIC Patient: JULIÁN PARR Age: 38 Years Sex: Female : 1980 Admission Information Active Problems (5) Abnormal vaginal bleeding Anemia Dyspareunia in female Endometriosis Metrorrhagia Hospital Course Patient admitted with abdominal pain, nausea, vomiting. found to have acute Hepatitis A. Transaminitis Trended down and continued to improve and has almost normalized. She was treated with IV fluids, pain control. Jaundice is also improved. INR normalizing. She'll be discharged with Zofran and Phenergan for nausea. She is tolerating diet She was also treated for acute gastroenteritis which included Levaquin and Flagyl. She has completed 9 days of those and no further antibiotics will be given on discharge. She'll follow up with her primary care physician in one week. Currently stable and appropriate for discharge. Significant Findings No Radiology Results Found Procedures and Treatment Provided No qualifying data available. Physical Exam Vitals & Measurements T: 36.8 ??C HR: 79 (Monitored) RR: 16 BP: 100/63 MAP: 71 SpO2: 96% Heart S1-S2 no murmurs regular rate and rhythm Discharge Plan Discharge home Altered mental state R41.82 Altered mental status [id number] Dehydration E86.0, Dehydration E86.0, Dehydration E86.0 Hepatitis A B15.9 Orders: ondansetron, 1 Tab, Oral, Tab, Q8H, PRN Nausea/Vomiting, # 30 Tab, 0 Refill(s), Pharmacy: [facility] promethazine, 1 Tab, Oral, Tab, Q8H, PRN for nausea/vomiting, # 30 Tab, 0 Refill(s), Pharmacy: [facility] Discharge Discharge Activity Discharge Diet Discharge Orders Discharge - Ordered -- Start: 12/04/18 7:47:00 EST, Discharge to: Home, Other DC instructions: pcp in 1 week Discharge Activity - Ordered -- Start: 12/04/18 7:47:00 EST, Activity: Activity as tolerated Discharge Diet - Ordered -- Start: 12/04/18 7:47:00 EST, Diet: Resume usual diet as tolerated Patient Discharge Condition stable, improved Discharge Disposition Discharge home Discharge Medications Home Medications (3) Active PriLOSEC 20 mg oral delayed release capsule 20 mg = 1 Cap, Oral, Daily promethazine 12.5 mg oral tablet 12.5 mg = 1 Tab, PRN, Oral, Q8H Zofran 4 mg oral tablet 4 mg = 1 Tab, PRN, Oral, Q8H Lab Results Blood Gases (Current Encounter/Past 24 Hours) No Blood Gas Results Found (Past 24 Hours) Electrolytes(BMP) Results (Current Encounter/Past 24 Hours) Sodium Level 139 mmol/L 12/04/2018 04:25 Potassium Level 4.1 mmol/L 12/04/2018 04:25 Chloride Level 107 mmol/L 12/04/2018 04:25 Carbon Dioxide Level 26 mmol/L 12/04/2018 04:25 Anion Gap 10 12/04/2018 04:25 Blood Urea Nitrogen 5 mg/dL LOW 12/04/2018 04:25 Glucose Level 100 mg/dL 12/04/2018 04:25 Calcium Level 7.9 mg/dL LOW 12/04/2018 04:25 Creatinine Level 0.60 mg/dL 12/04/2018 04:25 Cardiac Markers (Current Encounter/Past 24 Hours) No Cardiac Marker Results Found (Past 24 Hours) CBC Results (Current Encounter/Past 24 Hours) WBC 4.1 K/uL 12/04/2018 03:52 Hct 33.3 % LOW 12/04/2018 03:52 Hgb 10.5 g/dL LOW 12/04/2018 03:52 Platelet Count 242 K/uL 12/04/2018 03:52 CMP Results (Current Encounter/Past 24 Hours) eGFR NonAfrican >60 mL/min/1.73m2 12/04/2018 04:25 Bun/Creatinine 8.3 12/04/2018 04:25 eGFR >60 mL/min/1.73m2 12/04/2018 04:25 A/G Ratio 0.7 LOW 12/04/2018 04:25 Protein Total 5.8 Gram/dL LOW 12/04/2018 04:25 Creatinine Level 0.60 mg/dL 12/04/2018 04:25 Globulin 3.4 Gram/dL 12/04/2018 04:25 Sodium Level 139 mmol/L 12/04/2018 04:25 Potassium Level 4.1 mmol/L 12/04/2018 04:25 Chloride Level 107 mmol/L 12/04/2018 04:25 Carbon Dioxide Level 26 mmol/L 12/04/2018 04:25 Anion Gap 10 12/04/2018 04:25 Alk Phos 218 Units/Liter W[place] 12/04/2018 04:25 ALT 523 Units/Liter WV 12/04/2018 04:25 AST 303 Units/Liter WV 12/04/2018 04:25 Blood Urea Nitrogen 5 mg/dL LOW 12/04/2018 04:25 Glucose Level 100 mg/dL 12/04/2018 04:25 Albumin Level 2.4 Gram/dL LOW 12/04/2018 04:25 Bilirubin Total 4.8 mg/dL W[place] 12/04/2018 04:25 Calcium Level 7.9 mg/dL LOW 12/04/2018 04:25 Coagulation Results (Current Encounter/Past 24 Hours) PT 12.9 Second(s) W[place] 12/04/2018 03:52 INR 1.2 WV 12/04/2018 03:52 Creatinine Clearance (Current Encounter/Past 24 Hours) Creatinine Level 0.60 mg/dL 12/04/2018 04:25 Bun/Creatinine 8.3 12/04/2018 04:25 Estimated Creatinine Clearance 116.64 mL/Min 12/04/2018 04:25 Blood Products No qualifying data available. documented in this encounter Plan of Treatment Not on file documented as of this encounter Visit Diagnoses Not on filedocumented in this encounter
--- OUTSIDE RECORDS SUMMARY | 2025-06-18 15:12 | XMS_ITS | Encounter Summary ---
Author Organization [employer] ([place], [place], [place]) Address [address] [place] [address] Care Team Providers Care Catalyst Recovery Operator Name Role Phone Unavailable Primary Care Provider Unavailabl e Encounter Details Date Type Department Care Team (Late st Contact Info) Description 11/26/2018 Transcribed Document [facility] [place] [address] [place] [address] ProviderBonnie MD [address] [place] [address] Social History Tobacco Use Types Packs/Day Years Used Date Smoking Tobacco: Never Assessed Comments Unknown Sex and Gender Information Value Date Recorded Sex Assigned at Not on file Legal Sex Female 6:06 PM CDT Gender Identity Not on file Sexual Orientation Not on file documented as of this encounter Miscellaneous Notes * Cerner Conversion Note - Historical ProviderMD - 11/26/2018 5:00 PM MANAGER SQL Chart Check - Review Order Profile Entered On: 11/26/2018 17:13 EST Performed On: 11/26/2018 17:00 EST by MADYSON TEAGUE RN Chart Check Chart Reviewed Date and Time : 11/26/2018 17:13 EST [employer] Initiated/Discontinued as Appropriate : Yes All Active Orders Reviewed : Yes MADYSON TEAGUE RN - 11/26/2018 17:13 EST Electronically signed by Neftaly [facility] Conversion Delinquency Prevention Officer Cerner at 02/21/2023 8:05 PM CDT documented in this encounter Plan of Treatment Not on file documented as of this encounter Visit Diagnoses Not on filedocumented in this encounter
--- OUTSIDE RECORDS SUMMARY | 2025-06-18 15:12 | XMS_ITS | Encounter Summary ---
Author Organization [employer] ([place], [place], [place], [place]) Address [address] [place] [address] Care Team Providers Care Drafting Supervisor Name Role Phone Unavailable Primary Care Provider Unavailabl e Encounter Details Date Type Department Care Team (Late st Contact Info) Description 11/26/2018 Transcribed Document [facility] [place] [address] [place] [address] ProviderBonnie MD [address] [id number] Social History Tobacco Use Types Packs/Day Years Used Date Smoking Tobacco: Never Assessed Comments Unknown Sex and Gender Information Value Date Recorded Sex Assigned at Not on file Legal Sex Female 6:06 PM CDT Gender Identity Not on file Sexual Orientation Not on file documented as of this encounter Miscellaneous Notes * Cerner Conversion Note - Historical ProviderMD - 11/26/2018 4:14 PM SYSTEMS PROGRAMMER Patient: JULIÁN PARR Age: 38 Years Sex: Female : 1980 Chief Complaint Patient awake, but in a catatonic state, not responding to family, started last night but came out of it to talk with boyfriend. Informant is , but they are getting . No hx of this state, no psych hx History of Present Illness (Consult = descriptors) location, quality, severity, duration, timing, context, modifiers, associated signs/symptoms: Consulted by Lynn Mary M.D. for abdominal pain PCP: Not listed Date of admission: 11/25/18 38-year-old female with history of obesity s/p gastric bypass in 2010 that reports having constant nausea/vomiting for the past 5 days along with fever/chills and severe abdominal cramps. She says she was diagnosed with Norovirus at [facility] 2 weeks ago, but returned a week later when she was diagnosed with gallstones and was to have cholecystectomy, but this was postponed until she recovered from acute hepatitis A. She reports having no solid food, a 10 pound unintentional weight loss and bright yellow stools for the past 2 weeks and has had diarrhea for the past month along with a severe constant cramping diffuse abdominal pain that is only relieved with pain medications. She can think of no exacerbating factors and the pain does not radiate. She says she's had no urine output the past 2 days and yesterday became dizzy, had chest pains and shortness of breath upon standing and reports having a syncopal episode. Labs on admission revealed transaminitis with AST 1900 and ALT 1400 and positive for acute hepatitis A. Gallbladder ultrasound: Gallstones with probable sludge. CT of head and CXR revealed no acute process Review of Systems (Consult = items) 10 point ROS performed with the pertinent findings in above history of present illness Physical Exam (Consult = 11/11/11/x2/9x2) Vitals & Measurements T: 37.1 ??C HR: 80 (Monitored) HR: 91 (Peripheral) RR: 18 BP: 101/57 MAP: 66 SpO2: 97% HT: 165.1 cm WT: 100 kg WT: 100 kg BMI: 36.7 General: Very miserable-appearing 38 year old female lying abed in mild distress Neurologic: Awake, alert, and oriented X3 HENT: Normocephalic, normal hearing, moist oral mucosa, no scleral icterus Neck: Supple, non-tender, no carotid bruits, no JVD, no lymphadenopathy Lungs: Clear to auscultation Heart: Regular rate and rhythm Abdomen: + BS ??4, soft, morbidly obese, tender to palpation throughout, non-distended Musculoskeletal: Normal range of motion and strength, no tenderness or swelling Skin: Warm and dry without rash or lesion Psychiatric: Cooperative, appropriate mood and affect Assessment/Plan FOR DIAGNOSIS: (11/06/// points) N+W/U = 4; New = 3; Worsen = 2; Stable = 1; Improved = 1; Self-limited = 1 Altered mental state R41.82 Dehydration E86.0, Dehydration E86.0, Dehydration E86.0 Hepatitis A B15.9 Abdominal pain - likely multifactorial. Patient with acute hepatitis A infection. Supportive care with fluid replacement needed at this time. No acute GI intervention necessary. She can further GI workup following discharge which she has medically improved. Please watch for further recommendations from Dr. Wei Thank you for this consultation Allergies Ceclor penicillin (seizure) Medications Inpatient acetylcysteine 600 mg oral capsule, [...] Levaquin, 750 mg, 150 mL, IV Piggyback, [id number] morphine, 2 mg, 1 mL, IV Push, Q2H, PRN NaCl 0.9% bolus, 1000 mL, IV Piggyback, 1-Time oxyCODONE, 10 mg, 2 Tab, Oral, Q4H, PRN Pepcid, 20 mg, 1 Tab, Oral, Daily Phenergan, 6.25 mg, 0.25 mL, IntraVENous, Q6H, PRN pneumococcal 23-polyvalent vaccine, 0.5 mL, IntraMuscular, [id number] Zofran, 4 mg, 2 mL, IV Push, Q4H, PRN Home PriLOSEC 20 mg oral delayed release capsule, 20 mg, 1 Cap, Oral, Daily promethazine 12.5 mg oral tablet, 12.5 mg, 1 Tab, Oral, Q6H, PRN Zofran 4 mg oral tablet, 4 mg, 1 Tab, Oral, Q4H, PRN Problem List/Past Medical History Abnormal vaginal bleeding Anemia Dyspareunia in female Endometriosis Metrorrhagia Historical No historical problems Procedure/Surgical History appy, diagnostic lap x6, Gastric bypass, LEEP, x2, T&A, tubal ligation, vaginal hysterectomy. Social History Alcohol Alcohol Use History Yes. Alcohol Use Frequency Rarely. Alcohol Use History No. Employment/School Unemployed Home/Environment Lives with Children. Substance Abuse Drug Use Hx: No. Tobacco Smoking Status Never smoker. Smoking Status Never smoker. 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 She denies any tobacco, alcohol or illicit drug use history. Family History No GI malignancy or disease Lab Results NOV 26 03:12 \ L 10.0 / L 2.4 216 / L 34.0 \ Electronically signed by Neftaly, Ceasar Conversion Manager Environmental Health And Safety Cerner at 02/21/2023 8:10 PM CDT documented in this encounter Plan of Treatment Not on file documented as of this encounter Visit Diagnoses Not on filedocumented in this encounter
--- OUTSIDE RECORDS SUMMARY | 2025-06-18 15:12 | XMS_ITS | Encounter Summary ---
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 Name Role Phone Unavailable Primary Care Provider Unavailabl e Encounter Details Date Type Department Care Team (Late st Contact Info) Description 11/25/2018 Transcribed Document [facility] [place] [address] [place] [address] ProviderBonnie MD [address], [place] [id number] Social History Tobacco Use Types Packs/Day Years Used Date Smoking Tobacco: Never Assessed Comments Unknown Sex and Gender Information Value Date Recorded Sex Assigned at Not on file Legal Sex Female 6:06 PM CDT Gender Identity Not on file Sexual Orientation Not on file documented as of this encounter Miscellaneous Notes * Cerner Conversion Note - Historical ProviderMD - 11/25/2018 7:09 PM 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 History source: Patient. Arrival mode: Private vehicle. History limitation: Clinical condition. Additional information: Chief Complaint from Nursing Triage Note : Chief Complaint 11/25/2018 18:35 EST Chief Complaint Patient awake, but in a catatonic state, not responding to family, started last night but came out of it to talk with boyfriend. Informant is , but they are getting . No hx of this state, no psych hx . History of Present Illness Patient arrives to the ER with family. It was reported that for the last day she has not been responding as normal. Her previous states that they are getting but that her boyfriend called him and said that she had had multiple episodes of just staring into space and not following any commands. They state that her eyes are always open but she doesn't always respond. The patient is currently awake and talking. She states that she is having body aches all over. She states that she was recently in the hospital at [facility] and was diagnosed with gallstones and hepatitis A. Patient states that while she was there she had IV fluids but they could not take her to surgery for her gallbladder because of the active hepatitis A. She states that she went home and is still been unable to eat or drink. She states that she is also unable to urinate. She states that she has not had any urine output for the past 48 hours. She states that she has not been able to eat or drink. Her lips are dry and parched. There has been no abdominal tenderness. There is been continued nausea and vomiting. The patient has been taking Prilosec, Phenergan, and Zofran. There is no prior history of dental health issues. There is no history of drug or alcohol usage. The patient did state that her white blood count was 3 previous hospital. She denies any headache. There is no numbness or tingling. The patient reports that she has been so weak she can no longer stand up. She states that when she goes to stand her legs just buckle under her. She is alert and oriented ??3 at this time. She is moving all extremities equal Review of Systems Constitutional symptoms: Weakness, fatigue, decreased activity, no fever, no chills. Skin symptoms: No jaundice, Eye symptoms: Negative except as documented in HPI. ENMT symptoms: Negative except as documented in HPI. Respiratory symptoms: Negative except as documented in HPI. Cardiovascular symptoms: Negative except as documented in HPI. Gastrointestinal symptoms: Nausea, vomiting, No abdominal pain, Genitourinary symptoms: unable to urinate x 48 hours. Musculoskeletal symptoms: Negative except as documented in HPI. Neurologic symptoms: Weakness. Psychiatric symptoms: Negative except as documented in HPI. Endocrine symptoms: Negative except as documented in HPI. Hematologic/Lymphatic symptoms: Negative except as documented in HPI. Allergy/immunologic symptoms: Negative except as documented in HPI. Health Status Allergies: Allergic Reactions (Selected) Severity Not Documented Ceclor- No reactions were documented. Penicillin- Seizure.. Medications: (Selected) Inpatient Medications Ordered Normal Saline 1,000 mL: 999 mL/Hr, IntraVENous Normal Saline Flush: 10 mL, IV Push, 1-Time Documented Medications Documented Multiple Vitamins oral capsule: 1 Cap, Oral, Daily, 30 Cap, 0 Refill(s) norethindrone 5 mg oral tablet: 1 Tab, Oral, BID, 0 Refill(s). Past Medical/ Family/ Social History Surgical history: Gastric bypass ([id number]).\.br&T.brdiagnostic lap x6. Comments: 10/18/2017 15:36 - MARQUITA GIBBS RN for endometriosis LEEP ([id number]). tubal ligation. appy. x2., Reviewed as documented in chart. Family history: No family history items have been selected or recorded., Reviewed as documented in chart. Social history: Social & Psychosocial Habits Alcohol 10/18/2017 Alcohol Use History, Social Habits No 10/24/2017 Alcohol Use History, Social Habits Yes Alcohol Use Frequency Rarely Employment/School 10/18/2017 Status: Unemployed Home/Environment 10/18/2017 Lives with: Children Substance Abuse 10/24/2017 Recreational Drug Use History No Tobacco 10/18/2017 Smoking Status Never smoker 10/24/2017 Smoking Status Never smoker , Reviewed as documented in chart. Problem list: Active Problems (5) Abnormal vaginal bleeding Anemia Dyspareunia in female Endometriosis Metrorrhagia , per nurse's notes. Physical Examination Vital Signs Vital Signs/Vital Measures 11/25/2018 18:35 EST Temperature Source Oral Temperature Mode Fahrenheit Temperature, Fahrenheit 99.0 Deg F Clinical Temperature, C 37.2 Deg C Peripheral Pulse Rate 91 bpm Respiratory Rate 16 Breaths/Min Systolic Blood Pressure 122 mmHg Diastolic Blood Pressure 76 mmHg Oxygen Saturation 99 % Oxygen Therapy Mode Room air . Measurements 11/25/2018 18:35 EST Height Source Estimated Height Entry Format [place] Height/Length, [place] (ft) 5 ft Height/Length ALBANIAN 5 Inch CLINICALHEIGHT 165.1 cm [place] Body Weight 56.59 kg Weight Source, ED Critical estimated dosing weight Weight Entry Format Metric, kilograms Weight METRIC kg 103 kg CLINICALWEIGHT 103 kg Body Surface Area (BSA) 2.09 m2 Body Mass Index 37.8 kg/m2 HI . Oxygen Saturation 11/25/2018 18:35 EST Oxygen Saturation 99 % . General: Alert, no acute distress, ill-appearing. [place] coma scale: Total score: Total score: 15. Neurological: No focal neurological deficit observed, CN II-XII intact, normal sensory observed, normal motor observed, normal speech observed, normal coordination observed, normal and symmetrical reflexes, Level of consciousness: Appropriate for age. Skin: Dry, cool, pale. Head: Normocephalic, atraumatic. Neck: Supple, trachea midline. Eye: Pupils are equal, round and reactive to light, normal conjunctiva. Ears, nose, mouth and throat: Tympanic membranes clear, oral mucosa moist, no pharyngeal erythema or exudate. Cardiovascular: Regular rate and rhythm. Respiratory: Lungs are clear to auscultation, respirations are non-labored. Gastrointestinal: Soft, Nontender, Non distended. Back: Nontender. Musculoskeletal: Normal ROM. Lymphatics: No lymphadenopathy. Psychiatric: Cooperative. Medical Decision Making Differential Diagnosis: Confusion, dementia, cerebral vascular accident, transient ischemic attack, urinary tract infection, pneumonia, alcohol intoxication, drug abuse, delirium, dehydration, electrolyte imbalance, depression, anxiety. Orders Include Previous Orders (Selected) Inpatient Orders Ordered CAUTI Risk Assessment: ED Fall Risk Documented: ED Isolation Documented: EKG: Normal Saline 1,000 mL: 1,000 mL/Hr, IntraVENous Ordered (Dispatched) Hepatitis Panel Acute: Ordered (Exam Completed) CR Chest 1 Vw Portable: Cancelled (Canceled) .Automated Differential: Bilirubin Direct: Hepatic Function Panel: Cancelled (Exam Replaced) CR Chest PA & Lat: Completed .Differential Manual: .Urinalysis Microscopic: :Glucose POC: Alcohol Level: Ammonia Level: Amylase Level: Bilirubin Direct: CBC w/ Auto Diff: CMP Comprehensive Metabolic Panel: CT Head WO: Cardiac Monitoring: Drug Screen Urine 2: ED Adult Fall Risk Assessment: ED Adult Triage: ED Clinical Reconciliation: ED fitness management director: Ruiz Insertion: Lactic Acid Level with Reflex if Indicated: Lipase Level: Magnesium Level: Normal Saline Flush: 10 mL, IV Push, 1-Time POC Urine : Rapid Flu A/B Screen: Saline Lock Insert: Troponin I Ultra: Urinalysis w Microscopic: Discontinued Normal Saline 1,000 mL: 999 mL/Hr, IntraVENous . Results review: All Results 11/25/2018 20:[address] Head WO REPORT 11/25/2018 19:58 EST CR Chest 1 Vw Portable REPORT (In Progress) 11/25/2018 19:35 EST ED Nursing Record 11/25/2018 19:19 EST Consent Forms Consent Forms 11/25/2018 19:09 EST ED Physician Notes Altered mental status 11/25/2018 18:35 EST ED Nursing Record 11/25/2018 20:07 EST Estimated Creatinine Clearance 99.98 mL/Min 11/25/2018 19:42 EST HCG Result Negative Internal Control Line Present Yes 11/25/2018 19:37 EST D-BOOST Physical Limitation Yes 11/25/2018 19:37 EST Urine Type U CleanCatch Urine Color Yolie Urine Appearance Clear Urine Specific [place] 1.013 Urine pH Dipstick 6.5 Urine Leukocyte Esterase Negative Urine Nitrite Negative Urine Protein Dipstick Negative Urine Glucose Dipstick Negative Urine Ketones Dipstick Negative Urine Urobilinogen Dipstick 2.0 EU/dL Urine Bilirubin Dipstick Negative Urine Blood Dipstick Negative Ur RBC 0-2 /HPF Ur WBC 0-2 /HPF Ur Bacteria Trace Ur Mucous 2+ Ur Squamous Epithelial Cells 5-10 /HPF UDS pH 6.5 UDS Amp NEGATIVE UDS [place] NEGATIVE UDS Benzo NEGATIVE UDS Jose NEGATIVE UDS Opi POSITIVE UDS PCP NEGATIVE UDS TCA NEGATIVE UDS THC NEGATIVE 11/25/2018 19:37 Indwelling/Continuous 16 Urethral Indwelling Catheter Indication Urinary retention/obstruction Urinary Catheter Renewal/Cont Order Yes Urinary Catheter Bundle Insert using sterile technique, Hand hygiene before/after contact with catheter system, Secured catheter to thigh, Catheter bag below the level of the bladder at all times, Sterile, continuously closed system maintained, Specified criteria for insertion/cont of catheter documented, Ivania care daily and after all incontinent stool documented, Catheter and tubing positioned without dependent loops, Drainage bag emptied prior to transport and ambulation Urinary Catheter Activity Insert Urinary Catheter Present on Admission No Urinary Catheter Inserted/Applied by Sandra Rubio, RN Urinary Catheter Balloon Inflation 10 mL sterile water Urinary Catheter Secured Commercial device Urine Collection Device Closed drain bag, Urine meter Catheter Care Provided Pericare Urinary Catheter Procedure Tolerance Good Urinary Catheter Unexpected Response None Urine Specimen Sent to Lab Yes ABCs Fall Injury Risk Identification None MONGE Hx Falls Immediate/Within 3 Months No Monge Secondary Diagnosis Yes MONGE Ambulatory Aid None Monge IV Therapy or IV Access Yes Monge Gait/Transferring Weak MONGE Mental Status Overestimates/Forgets limitations Monge Fall Risk Score 60 Monge Fall Scale Risk Level 46 or > High Risk Groom Fall Interventions Adequate lighting, Assistive devices within reach, Bed in low position, Call device within reach, Hourly comfort/safety rounds, Personal items within reach, Reinforced to call for assistance before getting out of bed, Room free of clutter/spills, Upper side-rails up, Wheels locked, Wires/Cords secured 11/25/2018 19:35 EST Level of Consciousness Awake, Drowsy Orientation Not oriented to place, Not oriented to situation, Not oriented to time Affect/Behavior Appropriate, Calm, Anxious Respiratory Assessment WDL WDL Cough None Breath Sounds Auscultated Anterior All Lobes Breath Sounds Clear Left Upper Lobe Breath Sounds Clear Right Upper Lobe Breath Sounds Clear Right Middle Lobe Breath Sounds Clear Left Lower Lobe Breath Sounds Clear Right Lower Lobe Breath Sounds Clear Gastrointestinal Assessment WDL WDL with exceptions Gastrointestinal Symptoms Abdominal pain, Nausea Skin Temperature Warm Communication Barrier Medical condition Primary Language Moz[place]ican Information Obtained From Patient, Medical Record Smoking Status Never (less than 100 in lifetime; none in last 30 days) Smokeless Tobacco Status Never Any Spiritual/Cultural Needs or Requests No Currently in Unsafe Situation No 11/25/2018 19:31 EST Sodium Chloride 0.9% Begin Bag 1,000 mL mL 11/25/2018 19:27 EST Nurse Collect Order Detail 3.00 11/25/2018 19:27 EST Nurse Collect Order Detail 3.00 11/25/2018 19:27 EST eGFR >60 mL/min/1.73m2 eGFR NonAfrican >60 mL/min/1.73m2 Ammonia Level 14.0 uMol/L 11/25/2018 19:26 EST Nurse Collect Order Detail 3.00 11/25/2018 19:22 EST Nurse Collect Order Detail 3.00 11/25/2018 19:22 EST Nurse Collect Order Detail 3.00 11/25/2018 19:22 EST Sodium Level 140 mmol/L Potassium Level 3.5 mmol/L Chloride Level 103 mmol/L Carbon Dioxide Level 30 mmol/L Anion Gap 10 Glucose Level 86 mg/dL Blood Urea Nitrogen 5 mg/dL LOW Creatinine Level 0.70 mg/dL Bun/Creatinine 7.1 LOW Calcium Level 8.9 mg/dL Protein Total 7.8 Gram/dL Albumin Level 3.7 Gram/dL Globulin 4.1 Gram/dL A/G Ratio 0.9 LOW Bilirubin Total 0.6 mg/dL Bilirubin Direct 0.3 mg/dL HI Alk Phos 173 Units/Liter HI AST 1,923 Units/Liter HI ALT 1,430 Units/Liter HI Magnesium Level 2.2 mg/dL Amylase Level 33 Units/Liter Lipase Level 102 Units/Liter Lactic Acid Level 1.0 mmol/L Troponin I Ultra <0.015 ng/mL WBC 2.9 K/uL LOW RBC 5.63 Million/uL HI Hgb 13.0 g/dL Hct 43.4 % MCV 77.1 fL LOW MCH 23.1 pg LOW MCHC 30.0 Gram/dL LOW Platelet Count 235 K/uL MPV 11.2 fL RDW 15.0 % HI Neutrophil Percent Man 23 % LOW Band Percent Man 16 % HI ANC # 1 K/uL NA Lymph Percent Man 40 % ALYC # 1 K/uL NA [place] Percent Man 16 % HI Eos Percent Man 3 % Baso Percent Man 1 % [place] Percent Man 1 % RBC Morphology Abnormal Anisocytosis 1+ Hypochromia 1+ Microcytosis 1+ Platelet Ct Estimate Adequate Slide Review Add Diff Man Alcohol <3 mg/dL NA %Alcohol <.00 NA Influenza A+B Antigen See Result 11/25/2018 19:00 EST 11/25/2018 19:11 Over the needle Antecubital Left 18 gauge Peripheral Catheter/Needle Length: 1 Inch Peripheral IV Activity: Blood drawn with insertion, Start Peripheral IV Inserted by: LINDA BRADFORD RN Peripheral IV Number of Attempts: 1 Peripheral IV Skin Preparation: Chlorhexadine Peripheral IV Infiltration Score: 0 Peripheral IV Phlebitis Score: 0 IV Site/Line Care: Secured with tape IV Dressing Activity: Applied, Reinforced Peripheral IV Dressing: Non-allergic adhesive dressing, Occlusive Peripheral IV Dressing Condition: Dry, Intact EKG Completed by JOSTIN TOPETE EKG Time Completed 11/25/2018 18:50 EKG Communicated to Provider LAUREN RDZ MD EKG Time Communicated to Provider 11/25/2018 18:50 sodium chloride Not Done: Task Duplication (Not Done) 11/25/2018 18:53 EST Glucose POC2 90 mg/dL 11/25/2018 18:44 EST Estimated Creatinine Clearance 95.87 mL/Min 11/25/2018 18:35 EST Temperature Source Oral Temperature Mode Fahrenheit Temperature, Fahrenheit 99.0 Deg F Clinical Temperature, C 37.2 Deg C Peripheral Pulse Rate 91 bpm Respiratory Rate 16 Breaths/Min Systolic Blood Pressure 122 mmHg Diastolic Blood Pressure 76 mmHg Oxygen Saturation 99 % Oxygen Therapy Mode Room air Height Source Estimated Height Entry Format [place] Height/Length, [place] (ft) 5 ft Height/Length [place] 5 Inch CLINICALHEIGHT 165.1 cm [place] Body Weight 56.59 kg Weight Source, ED Critical estimated dosing weight Weight Entry Format Metric, kilograms Weight METRIC kg 103 kg CLINICALWEIGHT 103 kg Body Surface Area (BSA) 2.09 m2 Body Mass Index 37.8 kg/m2 HI Observed Activity Status Lethargic Activity Assist Level One person assist Patient Position HOB 30 degrees Safety Checks 2 Siderails up, Bag and mask at bedside, Bed in low position/brakes locked, Call light within reach of patient, Cardiac monitoring, Emergency equipment at bedside, ID band on and verified, Room clear of debris, Suction set up, Supervise toileting as indicated, Telemetry monitoring, Tray table within reach, Wheels locked Patient Turned Self turn Tuberculosis Symptoms None Infectious Disease History Chicken pox/Shingles, MRSA Fever/Chills Last 48 Hours No Travel To Regions with Travel Advisories No Travel Outside [place] Within Last 30 Days No Contact With Traveler to Advisory Region No Chief Complaint Patient awake, but in a catatonic state, not responding to family, started last night but came out of it to talk with boyfriend. Informant is , but they are getting . No hx of this state, no psych hx Transported to ED by Private vehicle To Room Via Wheelchair Tracking Acuity 3 - Urgent Accompanied by Spouse Mode of Arrival Wheelchair ED Infection Control No Isolation Needed Standard 11/25/2018 18:20 EST Nurse Collect Order Detail 3.00 Nurse Collect Order Detail 3.00 . Radiology results: Radiology Results (Last 48 hours) [id number] -- 11/25/2018 18:20 CT Head WO (11/25/2018 20:11) Result: HEAD [...] agree with the above final transcribed report. . Reexamination/ Reevaluation Time: 11/25/2018 22:22:00 . Vital signs per nurse's notes Course: unchanged. Pain status: unchanged. Assessment: exam improved. Impression and Plan Diagnosis Hepatitis A - Admitting, Emergency medicine, Medical Dehydration - Admitting, Emergency medicine, Medical Altered mental state - Admitting, Emergency medicine, Medical Calls-Consults - 11/25/2018 22:23:00 , EMERSON GIRON MD, hospitalist, phone call. Plan Condition: Stable. Disposition: Admit Admit/Transfer/Discharge: Place in Observation (Order): Start: 11/25/2018 22:24 EST, Observation Reason: dehydration, weakness, Unit type: Med-Surg with telemetry, Admitting: EMERSON GIRON MD, Attending: OLGA SHANKAR MD-EMR . Counseled: Patient, Family, Regarding diagnosis, Regarding diagnostic results, Regarding treatment plan, Regarding prescription, Patient indicated understanding of instructions. documented in this encounter Plan of Treatment Not on file documented as of this encounter Visit Diagnoses Not on filedocumented in this encounter
--- OUTSIDE RECORDS SUMMARY | 2025-06-18 15:12 | XMS_ITS | Encounter Summary ---
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 Role Phone Unavailable Primary Care Provider Unavailabl e Encounter Details Date Type Department Care Team (Late st Contact Info) Description 12/04/2018 Transcribed Document [facility] Family Medicine [address] [place] [address] ProviderBonnie MD [address] [place] [address] Social History Tobacco Use Types Packs/Day Years Used Date Smoking Tobacco: Never Assessed Comments Unknown Sex and Gender Information Value Date Recorded Sex Assigned at Not on file Legal Sex Female 6:06 PM CDT Gender Identity Not on file Sexual Orientation Not on file documented as of this encounter Miscellaneous Notes * Cerner Conversion Note - Bonnie Poole MD - 12/04/2018 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 [address] [place] [id number] Comments: follow up as needed for any gallbladder problems Discharge Instructions: Diet after Discharge: GI soft/Low residue/Low fiber Activity after Discharge: As tolerated, No strenuous activities Driving after Discharge: Do not drive Showering/Bathing:May shower Immunizations Documented During Stay: pneumococcal 23-polyvalent vaccine 11/30/2018 Heart Failure Discharge Instructions (if any): Stroke Related Discharge Instructions (if any): Warfarin Related Discharge Instructions (if any): Final Medication List: [facility], [address] [facility] [address] [place], [place] [id number], [phone] ondansetron (Zofran 4 mg oral tablet) 1 Tablet(s) Oral Every 8 Hours as needed Nausea/Vomiting. Refills: 0. promethazine (promethazine 12.5 mg oral tablet) 1 Tablet(s) Oral Every 8 Hours as needed for nausea/vomiting. Refills: 0. Other Medications omeprazole (PriLOSEC 20 mg oral delayed release capsule) 1 Capsule(s) Oral Every Day. Patient Allergies: Ceclor; penicillin Medication Instructions: Take your medications faithfully. Do NOT skip medication. Do NOT stop taking medications without the direction of a physician. Carry a list of your medications with you at all times, and take this medication list with you to your first follow up visit. Report any side effects. Avoid herbal remedies unless discussed with your physician. As part of your treatment plan, [...] cramping, rapid heartbeat, difficulty sleeping, and nervousness. Patient education materials: Hepatitis A Hepatitis A is a liver infection caused by a virus. Most cases of hepatitis A are fairly mild. Hepatitis A can spread from person to person by: ??? Drinking or eating unclean water or food. ??? Having sex with someone who is infected. ??? Coming into contact with the poop (feces) of a person who is infected. You may then pass the virus from your hands to your mouth. Follow these instructions at home: ??? Rest. Make sure you: ? Get enough sleep. Do not stay up late. ? Keep the same bedtime hours on weekends and weekdays. ? Take naps or rest breaks when you feel tired. ??? Wash your hands: ? After using the bathroom. ? Before touching food or water. ??? Do nottake any medicines or supplements unless your doctor says it is okay. ??? Tell your doctor about all of the people you live with or with whom you have close contact. Your doctor may suggest that they get the hepatitis A vaccine. ??? Follow your doctor's instructions on how to avoid spreading the virus. ??? Do notdrink alcohol until your doctor says it is okay. ??? Ask your doctor when you may go back to school or work. Contact a doctor if: You have a fever. Get help right away if: ??? You cannot eat or drink. ??? You feel sick to your stomach (nauseous) or throw up (vomit). ??? You get confused. ??? Your yellowing of the skin and the whites of your eyes (jaundice) gets worse. ??? You are very sleepy or have trouble waking up. This information is not intended to replace advice given to you by your health care provider. Make sure you discuss any questions you have with your health care provider. Document Released: 11/25/2011 Document Revised: 03/30/2017 Document Reviewed: 01/28/2015 [employer] Patient Education ? 2017 [employer] Cholelithiasis Cholelithiasis is also called gallstones. It is a kind of gallbladder disease. The gallbladder is an organ that stores a liquid (bile) that helps you digest fat. Gallstones may not cause symptoms (may be silent gallstones) until they cause a blockage, and then they can cause pain (gallbladder attack). Follow these instructions at home: ??? Take svcj-xzj-irkarvk and prescription medicines only as told by your doctor. ??? Stay at a healthy weight. ??? Eat healthy foods. This includes: ? Eating fewer fatty foods, like fried foods. ? Eating fewer refined carbs (refined carbohydrates). Refined carbs are breads and grains that are highly processed, like white bread and white rice. Instead, choose whole grains like whole-wheat bread and brown rice. ? Eating more fiber. Almonds, fresh fruit, and beans are healthy sources of fiber. ??? Keep all follow-up visits as told by your doctor. This is important. Contact a doctor if: ??? You have sudden pain in the upper right side of your belly (abdomen). Pain might spread to your right shoulder or your chest. This may be a sign of a gallbladder attack. ??? You feel sick to your stomach (are nauseous). ??? You throw up (vomit). ??? You have been diagnosed with gallstones that have no symptoms and you get: ? Belly pain. ? Discomfort, burning, or fullness in the upper part of your belly (indigestion). Get help right away if: ??? You have sudden pain in the upper right side of your belly, and it lasts for more than 2 hours. ??? You have belly pain that lasts for more than 5 hours. ??? You have a fever or chills. ??? You keep feeling sick to your stomach or you keep throwing up. ??? Your skin or the whites of your eyes turn yellow (jaundice). ??? You have dark-colored pee (urine). ??? You have light-colored poop (stool). Summary ??? Cholelithiasis is also called gallstones. ??? The gallbladder is an organ that stores a liquid (bile) that helps you digest fat. ??? Silent gallstones are gallstones that do not cause symptoms. ??? A gallbladder attack may cause sudden pain in the upper right side of your belly. Pain might spread to your right shoulder or your chest. If this happens, contact your doctor. ??? If you have sudden pain in the upper right side of your belly that lasts for more than 2 hours, get help right away. This information is not intended to replace advice given to you by your health care provider. Make sure you discuss any questions you have with your health care provider. Document Released: 04/10/2009 Document Revised: 07/09/2017 Document Reviewed: 07/09/2017 [email or web address] Interactive Patient Education ? 2017 [employer]. Medication Leaflets: promethazine (oral) (pro METH a zeen) Phenergan What is the most important information I should know about promethazine? Promethazine should not be given to a child younger than 2 years old. Promethazine can cause severe breathing problems or in very young children. What is promethazine? Promethazine is in a group of drugs called phenothiazines (VIKR-vn-WPKF-a-zeens). It works by changing the actions of chemicals in your brain. Promethazine also acts as an antihistamine. It blocks the effects of the naturally occurring chemical histamine in your body. Promethazine is used to treat allergy symptoms such as itching, runny nose, sneezing, itchy or watery eyes, hives, and itchy skin rashes. Promethazine also prevents motion sickness, and treats nausea and vomiting or pain after surgery. It is also used as a sedative or sleep aid. Promethazine is not for use in treating symptoms of asthma, pneumonia, or other lower respiratory tract infections. Promethazine may also be used for purposes not listed in this medication guide. What should I discuss with my healthcare provider before taking promethazine? Promethazine should not be given to a child younger than 2 years old. Promethazine can cause severe breathing problems or in very young children. Carefully follow your doctor's instructions when giving this medicine to a child of any age. You should not take this medicine if you are allergic to promethazine or to similar medicines such as chlorpromazine, fluphenazine, mesoridazine, perphenazine, prochlorperazine, thioridazine, or trifluperazine. To make sure promethazine is safe for you, tell your doctor if you have: ? asthma, chronic obstructive pulmonary disease (COPD), sleep apnea, or other breathing disorder; ?? a sulfite allergy; ?? a history of seizures; ?? a weak immune system (bone marrow depression); ?? glaucoma; ?? enlarged prostate or problems with urination; ?? stomach ulcer or obstruction; ?? heart disease or high blood pressure; ?? liver disease; ?? adrenal gland tumor (pheochromocytoma); ?? low levels of calcium in your blood (hypocalcemia); or ?? if you have ever had a serious side effect while using promethazine or any other phenothiazine. It is not known whether promethazine will harm an unborn baby. Tell your doctor if you are or plan to become while using this medicine. It is not known whether promethazine passes into breast milk or if it could harm a nursing baby. You should not breast-feed while using this medicine. How should I take promethazine? Follow all directions on your prescription label. Your doctor may occasionally change your dose to make sure you get the best results. Do not take this medicine in larger or smaller amounts or for longer than recommended. Promethazine is often taken at bedtime or before meals. For motion sickness, promethazine is usually started within 1 hour before traveling. When used for surgery, promethazine is usually taken the night before the surgery. How often you take this medicine and the timing of your dose will depend on the condition being treated. Measure liquid medicine with the dosing syringe provided, or with a special dose-measuring spoon or medicine cup. If you do not have a dose-measuring device, ask your pharmacist for one. If a child is using this medicine, tell your doctor if the child has any changes in weight. Promethazine doses are based on weight in children, and any changes may affect your child's dose. Call your doctor if your symptoms do not improve, or if they get worse while using promethazine. This medicine can cause unusual results with certain medical tests. Tell any doctor who treats you that you are using promethazine. Store at room temperature away from moisture, heat, and light. What happens if I miss a dose? Take the missed dose as soon as you remember. Skip the missed dose if it is almost time for your next scheduled dose. Do not take extra medicine to make up the missed dose. What happens if I overdose? Seek emergency medical attention or call the Poison Help line at . Overdose symptoms may include overactive reflexes, loss of coordination, severe drowsiness or weakness, fainting, dilated pupils, weak or shallow breathing, or seizure (convulsions). What should I avoid while taking promethazine? This medicine may impair your thinking or reactions. Be careful if you drive or do anything that requires you to be alert. Avoid getting up too fast from a sitting or lying position, or you may feel dizzy. Get up slowly and steady yourself to prevent a fall. Drinking alcohol can increase certain side effects of promethazine. Avoid exposure to sunlight or tanning beds. Promethazine can make you sunburn more easily. Wear protective clothing and use sunscreen (SPF 30 or higher) when you are outdoors. What are the possible side effects of promethazine? Get emergency medical help if you have signs of an allergic reaction: hives; difficult breathing; swelling of your face, lips, tongue, or throat. Stop using promethazine and call your doctor at once if you have: ? severe drowsiness, weak or shallow breathing; ?? a light-headed feeling, like you might pass out; ?? confusion, agitation, hallucinations, nightmares; ?? seizure (convulsions); ?? fast or slow heartbeats; ?? jaundice (yellowing of the skin or eyes); ?? uncontrolled muscle movements in your face (chewing, lip smacking, frowning, tongue movement, blinking or eye movement); ?? easy bruising or bleeding (nosebleeds, bleeding gums); ?? sudden weakness or ill feeling, fever, chills, sore throat, mouth sores, red or swollen gums, trouble swallowing; or ?? severe nervous system reaction--very stiff (rigid) muscles, high fever, sweating, confusion, fast or uneven heartbeats, tremors, feeling like you might pass out. Side effects such as confusion and severe drowsiness may be more likely in older adults. Common side effects may include: ? drowsiness, dizziness; ?? ringing in your ears; ?? double vision; ?? feeling nervous; ?? dry mouth; or ?? tired feeling, sleep problems (insomnia). This is not a complete list of side effects and others may occur. Call your doctor for medical advice about side effects. You may report side effects to FDA at 6-975-CWN-1357. What other drugs will affect promethazine? Using this medicine with other drugs that make you sleepy or slow your breathing can cause dangerous or life-threatening side effects. Ask your doctor before taking promethazine with a sleeping pill, narcotic pain medicine, muscle relaxer, or medicine for anxiety, depression, or seizures. Other drugs may interact with promethazine, including prescription and mdob-aer-oqqsrwv medicines, vitamins, and herbal products. Tell each of your health care providers about all medicines you use now and any medicine you start or stop using. Where can I get more information? Your pharmacist can provide more information about promethazine. Remember, keep this and all other medicines out of the reach of children, never share your medicines with others, and use this medication only for the indication prescribed. Every effort has been made to ensure that the information provided by [employer]. [employer]') is accurate, up-to-date, and complete, but no guarantee is made to that effect. Drug information contained herein may be time sensitive. [employer] information has been compiled for use by healthcare practitioners and consumers in the [place] and therefore [employer] does not warrant that uses outside of the [place] are appropriate, unless specifically indicated otherwise. [employer] drug information does not endorse drugs, diagnose patients or recommend therapy. [employer] drug information is an informational resource designed to assist licensed healthcare practitioners in caring for their patients and/or to serve consumers viewing this service as a supplement to, and not a substitute for, the expertise, skill, knowledge and judgment of healthcare practitioners. The absence of a warning for a given drug or drug combination in no way should be construed to indicate that the drug or drug combination is safe, effective or appropriate for any given patient. [employer] does not assume any responsibility for any aspect of healthcare administered with the aid of information [employer] provides. The information contained herein is not intended to cover all possible uses, directions, precautions, warnings, drug interactions, allergic reactions, or adverse effects. If you have questions about the drugs you are taking, check with your doctor, nurse or pharmacist. Copyright 1852-2530 [employer]. Version: 6.02. Revision Date: 08/20/2015. ondansetron (oral) (on CHRISTIANO se agustín) Marycarmen, Zofran ODT, Lia What is the most important information I should know about ondansetron? You should not use ondansetron if you are also using apomorphine (Apokyn). What is ondansetron? Ondansetron blocks the actions of chemicals in the body that can trigger nausea and vomiting. Ondansetron is used to prevent nausea and vomiting that may be caused by surgery, cancer chemotherapy, or radiation treatment. Ondansetron may be used for purposes not listed in this medication guide. What should I discuss with my health care provider before taking ondansetron? You should not use ondansetron if: ? you are also using apomorphine (Apokyn); or ?? you are allergic to ondansetron or similar medicines (dolasetron, granisetron, palonosetron). To make sure ondansetron is safe for you, tell your doctor if you have: ? liver disease; ?? an electrolyte imbalance (such as low levels of potassium or magnesium in your blood); ?? congestive heart failure, slow heartbeats; ?? a personal or family history of long QT syndrome; or ?? a blockage in your digestive tract (stomach or intestines). Ondansetron is not expected to harm an unborn baby. Tell your doctor if you are . It is not known whether ondansetron passes into breast milk or if it could harm a nursing baby. Tell your doctor if you are breast-feeding a baby. Ondansetron is not approved for use by anyone younger than 4 years old. Ondansetron orally disintegrating tablets may contain phenylalanine. Tell your doctor if you have phenylketonuria (PKU). How should I take ondansetron? Follow all directions on your prescription label. Do not take this medicine in larger or smaller amounts or for longer than recommended. Ondansetron can be taken with or without food. The first dose of ondansetron is usually taken before the start of your surgery, chemotherapy, or radiation treatment. Follow your doctor's dosing instructions very carefully. Take the ondansetron regular tablet with a full glass of water. To take the orally disintegrating tablet (Zofran ODT): ? Keep the tablet in its blister pack until you are ready to take it. Open the package and peel back the foil. Do not push a tablet through the foil or you may damage the tablet. ?? Use dry hands to remove the tablet and place it in your mouth. ?? Do not swallow the tablet whole. Allow it to dissolve in your mouth without chewing. ?? Swallow several times as the tablet dissolves. To use ondansetron oral soluble film (strip) (Zuplenz): ? Keep the strip in the foil pouch until you are ready to use the medicine. ?? Using dry hands, remove the strip and place it on your tongue. It will begin to dissolve right away. ?? Do not swallow the strip whole. Allow it to dissolve in your mouth without chewing. ?? Swallow several times after the strip dissolves. If desired, you may drink liquid to help swallow the dissolved strip. ?? Wash your hands after using Zuplenz. Measure liquid medicine with the dosing syringe provided, or with a special dose-measuring spoon or medicine cup. If you do not have a dose-measuring device, ask your pharmacist for one. Store at room temperature away from moisture, heat, and light. Store liquid medicine in an upright position. What happens if I miss a dose? Take the missed dose as soon as you remember. Skip the missed dose if it is almost time for your next scheduled dose. Do not take extra medicine to make up the missed dose. What happens if I overdose? Seek emergency medical attention or call the Poison Help line at . Overdose symptoms may include sudden loss of vision, severe constipation, feeling light-headed, or fainting. What should I avoid while taking ondansetron? Ondansetron may impair your thinking or reactions. Be careful if you drive or do anything that requires you to be alert. What are the possible side effects of ondansetron? Get emergency medical help if you have signs of an allergic reaction: rash, hives; fever, chills, difficult breathing; swelling of your face, lips, tongue, or throat. Call your doctor at once if you have: ? severe constipation, stomach pain, or bloating; ?? headache with chest pain and severe dizziness, fainting, fast or pounding heartbeats; ?? fast or pounding heartbeats; ?? jaundice (yellowing of the skin or eyes); ?? blurred vision or temporary vision loss (lasting from only a few minutes to several hours); ?? high levels of serotonin in the body--agitation, hallucinations, fever, fast heart rate, overactive reflexes, nausea, vomiting, diarrhea, loss of coordination, fainting. Common side effects may include: ? diarrhea or constipation; ?? headache; ?? drowsiness; or ?? tired feeling. This is not a complete list of side effects and others may occur. Call your doctor for medical advice about side effects. You may report side effects to FDA at 7-886-CWI-8694. What other drugs will affect ondansetron? Ondansetron can cause a serious heart problem, especially if you use certain medicines at the same time, including antibiotics, antidepressants, heart rhythm medicine, antipsychotic medicines, and medicines to treat cancer, malaria, HIV or AIDS. Tell your doctor about all medicines you use, and those you start or stop using during your treatment with ondansetron. Taking ondansetron while you are using certain other medicines can cause high levels of serotonin to build up in your body, a condition called 'serotonin syndrome,' which can be fatal. Tell your doctor if you also use: ? medicine to treat depression; ?? medicine to treat a psychiatric disorder; ?? a narcotic (opioid) medication; or ?? medicine to prevent nausea and vomiting. This list is not complete and many other drugs can interact with ondansetron. This includes prescription and wcrk-pzz-lstpdwy medicines, vitamins, and herbal products. Give a list of all your medicines to any healthcare provider who treats you. Where can I get more information? Your pharmacist can provide more information about ondansetron. Remember, keep this and all other medicines out of the reach of children, never share your medicines with others, and use this medication only for the indication prescribed. Every effort has been made to ensure that the information provided by [employer] is accurate, up-to-date, and complete, but no guarantee is made to that effect. Drug information contained herein may be time sensitive. [employer] information has been compiled for use by healthcare practitioners and consumers in the [place] and therefore [employer] does not warrant that uses outside of the [place] are appropriate, unless specifically indicated otherwise. [employer] drug information does not endorse drugs, diagnose patients or recommend therapy. [employer] drug information is an informational resource designed to assist licensed healthcare practitioners in caring for their patients and/or to serve consumers viewing this service as a supplement to, and not a substitute for, the expertise, skill, knowledge and judgment of healthcare practitioners. The absence of a warning for a given drug or drug combination in no way should be construed to indicate that the drug or drug combination is safe, effective or appropriate for any given patient. [employer] does not assume any responsibility for any aspect of healthcare administered with the aid of information [employer] provides. The information contained herein is not intended to cover all possible uses, directions, precautions, warnings, drug interactions, allergic reactions, or adverse effects. If you have questions about the drugs you are taking, check with your doctor, nurse or pharmacist. Copyright 3116-4245 [employer]. Version: 13.01. Revision Date: 08/26/2016. CIGARETTE SMOKING: The facts are clear, cigarette smoking will shorten your life. Smoking can cause many illnesses along the way. As a healthcare provider, we recommend that you stop smoking. Assistance with quitting is available by contacting 7-220-ZVNN-NOW. This is a free resource providing counseling, support, and referral. Or you may contact your personal physician. STROKE is an EMERGENCY Every Minute Counts [...] Fibrillation (irregular heartbeat) Family history of stroke Reminder: Be sure to sign up for the [employer] patient portal, which gives you 29/05 access to your medical information ??? including these discharge instructions ??? using your computer, smartphone, or tablet. Just go to [employer] to get started. Questions? Call . [facility] would like to thank you for allowing us to assist you with your healthcare needs. WILMAR Green KELLY NICOLE, (or medical representative) have received the above patient education materials/instructions and have verbalized understanding: Patient Signature _ Date/Time Patient Line Inspector Signature (if needed) Date/Time Clinician/Hospital Line Inspector Signature (if needed) Date/Time documented in this encounter Plan of Treatment Not on file documented as of this encounter Visit Diagnoses Not on filedocumented in this encounter
--- OUTSIDE RECORDS SUMMARY | 2025-06-18 15:12 | XMS_ITS | Encounter Summary ---
Author Organization [employer] ([place], [place], [place], [place]) Address [address] [place] [address] Care Team Providers Care Gridcap Machine Operator Name Role Phone Unavailable Primary Care Provider Unavailabl e Encounter Details Date Type Department Care Team (Late st Contact Info) Description 11/29/2018 Transcribed Document [facility] [place] Family Medicine [address] [place] [address] ProviderBonnie MD [address] [place] [address] Social History Tobacco Use Types Packs/Day Years Used Date Smoking Tobacco: Never Assessed Comments Unknown Sex and Gender Information Value Date Recorded Sex Assigned at Not on file Legal Sex Female 6:06 PM CDT Gender Identity Not on file Sexual Orientation Not on file documented as of this encounter Miscellaneous Notes * Cerner Conversion Note - Historical ProviderMD - 11/29/2018 5:00 PM REFINISHER Chart Check - Review Order Profile Entered On: 11/29/2018 18:40 EST Performed On: 11/29/2018 17:00 EST by MADYSON TEAGUE RN Chart Check Chart Reviewed Date and Time : 11/29/2018 18:40 EST Powerplans Initiated/Discontinued as Appropriate : Yes All Active Orders Reviewed : Yes MADYSON TEAGUE RN - 11/29/2018 18:39 EST Electronically signed by Neftaly [facility] Conversion Bilingual Receptionist Cerner at 02/21/2023 8:23 PM CDT documented in this encounter Plan of Treatment Not on file documented as of this encounter Visit Diagnoses Not on filedocumented in this encounter
--- OUTSIDE RECORDS SUMMARY | 2025-06-18 15:12 | XMS_ITS | Encounter Summary ---
Author Organization [employer] ([place], [place], [place], [place]) Address [address] [place] [address] Care Team Providers Care Crab Steamer Name Role Phone Unavailable Primary Care Provider Unavailabl e Encounter Details Date Type Department Care Team (Late st Contact Info) Description 11/30/2018 Transcribed Document [facility] [place] Family Medicine [address] [place] [address] ProviderBonnie MD [address] [place] [address] Social History Tobacco Use Types Packs/Day Years Used Date Smoking Tobacco: Never Assessed Comments Unknown Sex and Gender Information Value Date Recorded Sex Assigned at Not on file Legal Sex Female 6:06 PM CDT Gender Identity Not on file Sexual Orientation Not on file documented as of this encounter Miscellaneous Notes * Cerner Conversion Note - Historical ProviderMD - 11/30/2018 6:04 PM MANAGER DAIRY Care Management Assessment/Plan Entered On: 11/30/2018 18:05 EST Performed On: 11/30/2018 18:04 EST by Lexy Lewis RN Care Management Note Care Management Note : Pt still with severe N/V with any po intake. GI note: Acute hepatitis A, screening for hepatitis B and C nonreactive Severe nausea and vomiting Rising bilirubin with improving transaminases, ?c/w cholestasis, on acetylcysteine Synthetic function responded nicely to vit K, INR 1.3 today Question of encephalopathy on admission, seemingly resolved now--on lactulose History of gastric bypass , malnutrition Morbid obesity with fatty liver disease Gallbladder sludge, possible cholecystitis on MRCP Splenomegaly on MRCP Mild anemia, stable, no obvious blood loss EBV pattern c/w convalescence or past infection HIV screen was neg and there was no indication of iron overload Abnormal MRCP, but normal ducts--see full report below Consider surgery consultation, adding ciara. Dr Wei does not plan ERCP at this time. Continue care as prev directed, hydration, symptom management. May need TF vs TPN. Dr Pringle was considering transfer to if no improvement. Definitely needed if worsening encephalopathy and INR >1.5 CM will continue to follow. Care Management Note Report : Lexy Lewis RN - 11/29/18 17:25:13 Clinical updates: Alk phos-188/AST-[id number]/ALT-2147. Pt underwent MRCP- 1) Abnormal appearance of thick-walled gallbladder. Acute gallbladder disease not excluded. Consider hepatobiliary imaging, 2) Nonspecific periportal edema which could be related to gallbladder disease, 3) Recommend hepatobiliary imaging, and 4) Mild splenomegaly. CM will continue to follow. Lexy Lewis RN - 11/28/18 16:36:29 Clinical updates: K-3.4/scr-0.50/Alb-2.4/Bili-2.0/Alk Phos-195/AST-2793/ALT-2285/INR-1.4/-. MRCP pending. Met with pt at bedside this am and informed pt of CM role. DCP still unkown at this time. CM will continue to follow. Lexy Lewis RN - 11/27/18 14:56:21 [id number] Documentation Status Complete : Yes Lexy Lewis RN - 11/30/2018 18:04 EST documented in this encounter Plan of Treatment Not on file documented as of this encounter Visit Diagnoses Not on filedocumented in this encounter
--- OUTSIDE RECORDS SUMMARY | 2025-06-18 15:12 | XMS_ITS | Encounter Summary ---
Author Organization [email or web address] ([place], [place], [place], [place]) Address [address] [place] [address] Care Team Providers Care Occupational Therapy Program Director Name Role Phone Unavailable Primary Care Provider Unavailabl e Encounter Details Date Type Department Care Team (Late st Contact Info) Description 12/05/[address] [facility] [place] Family Medicine [address] [place] [address] ProviderBonnie MD [address] [id number] Social History Tobacco Use Types Packs/Day Years Used Date Smoking Tobacco: Never Assessed Comments Unknown Sex and Gender Information Value Date Recorded Sex Assigned at Not on file Legal Sex Female 6:06 PM CDT Gender Identity Not on file Sexual Orientation Not on file documented as of this encounter Miscellaneous Notes * Cerner Conversion Note - Historical ProviderMD - 12/05/2018 3:38 PM BUNCHER MACHINE Post Visit Phone Call Entered On: 12/05/2018 15:40 EST Performed On: 12/05/2018 15:38 EST by CHINEDU RUGGIERO RN Post Visit Phone Call Post Visit Phone Call History : First call, Second call, Left message CHINEDU RUGGIERO RN - 12/05/2018 15:38 EST Electronically signed by Neftaly [facility] Conversion Spinner Iron Cerner at 02/21/2023 8:09 PM CDT documented in this encounter Plan of Treatment Not on file documented as of this encounter Visit Diagnoses Not on filedocumented in this encounter
--- OUTSIDE RECORDS SUMMARY | 2025-06-18 15:12 | XMS_ITS | Encounter Summary ---
Author Organization [employer] ([place], [place], [place], [place]) Address [address] [place] [address] Care Team Providers Care Automotive Sales Manager Name Role Phone Unavailable Primary Care Provider Unavailabl e Encounter Details Date Type Department Care Team (Late st Contact Info) Description 11/26/2018 Transcribed Document [facility] [place] Family Medicine [address] [place] [address] ProviderBonnie MD [address], [place] [id number] Social History Tobacco Use Types Packs/Day Years Used Date Smoking Tobacco: Never Assessed Comments Unknown Sex and Gender Information Value Date Recorded Sex Assigned at Not on file Legal Sex Female 6:06 PM CDT Gender Identity Not on file Sexual Orientation Not on file documented as of this encounter Miscellaneous Notes * Cerner Conversion Note - Bonnie ProviderMD - 11/26/2018 8:53 AM HEAVY DUTY MECHANIC FARM EQUIPMENT Patient: JULIÁN PARR Age: 38 years Sex: Female : 1980 Associated Diagnoses: None Author: LINDA JAQUEZ II, MD-INT Subjective still with nausea, emesis improved. abd pain persists Review of Systems Constitutional: [No fevers, chills, sweats] Eye: [No recent visual problems] ENMT: [No ear pain, nasal congestion, sore throat] Respiratory: [No shortness of breath, cough] Cardiovascular: [No Chest pain, palpitations, syncope] Gastrointestinal: [No nausea, vomiting, +abd pain Health Status Allergies: [...] 100 mL, 100 mL/Hr, IV Piggyback, Q6H Merrem + Sodium Chloride 0.9% intravenous solution 50 mL: 500 mg, 16.67 mL/Hr, IV Piggyback, Q6HInt NaCl 0.9% bolus: 1,000 mL, 1,000 mL/Hr, IV Piggyback, 1-Time Pepcid: 20 mg, Oral, Daily Phenergan: 6.25 mg, IntraVENous, Q6H, PRN: Nausea Zofran: 4 mg, IV Push, Q4H, PRN: Nausea acetylcysteine 600 mg oral capsule: 1,200 mg, 2 Cap, Oral, BID cloNIDine: 0.1 mg, Oral, Q4H, PRN: Hypertension heparin: 5,000 Units, SubCutaneous, Q8H hydrALAZINE: 10 mg, IV Push, Q6H, PRN: Hypertension lactulose: 20 Gram, Oral, Q8H morphine: 2 mg, IV Push, Q2H, PRN: Pain (Severe 7-10) pneumococcal 23-polyvalent vaccine: 0.5 mL, IntraMuscular, [id number] Documented Medications Documented Zofran 4 mg oral tablet: 1 Tab, Oral, Q4H, 0 Refill(s) promethazine 12.5 mg oral tablet: 1 Tab, Oral, Q4H, PRN: as needed for nausea/vomiting, 60 Tab, 0 Refill(s), Home Medications (2) Active promethazine 12.5 mg oral tablet 12.5 mg = 1 Tab, PRN, Oral, Q4H Zofran 4 mg oral tablet 4 mg = 1 Tab, Oral, Q4H , Medications (16) Active Scheduled: (8) acetylcysteine 600 mg cap 1,200 mg 2 Cap, Oral, BID famotidine 20 mg tab 20 mg 1 Tab, Oral, Daily heparin 5,000 units/1 mL inj 5,000 Units 1 mL, SubCutaneous, Q8H lactulose 20 g/30 mL oral liq 20 Gram 30 mL, Oral, Q8H meropenem + NaCl 0.9% 50 mL 500 mg, IV Piggyback, Q6HInt metroNIDAZOLE 500 mg 100 mL, IV Piggyback, Q6H NaCl 0.9% 1,000 mL, IV Piggyback, 1-Time pneumococcal 23-wayne vacc inj 0.5 mL 0.5 mL, IntraMuscular, [id number] Continuous: (1) Dextrose 5% NaCl 0.9% 1,000 mL 1,000 mL, IntraVENous, 125 mL/Hr PRN: (7) albuterol-ipratropium inh 3 mL 3 mL, Nebulized [...] 4 mg 2 mL, IV Push, Q4H promethazine 25 mg/1 mL inj 6.25 mg 0.25 mL, IntraVENous, Q6H Problem list: Medical Metrorrhagia / SNOMED CT 745571824 / Confirmed Endometriosis / SNOMED CT 604103063 / Confirmed Dyspareunia in female / SNOMED CT 621579158 / Confirmed Anemia / SNOMED CT 736925392 / Confirmed Abnormal vaginal bleeding / SNOMED CT 644151093 / Confirmed heavy, Active Problems (5) Abnormal vaginal bleeding Anemia Dyspareunia in female Endometriosis Metrorrhagia Objective Intake and Output Intake & Output Totals Last 24 Hours (7a-7a) Intake (7 Events) Medications (45.09 mL) Output (0 Events) No output events found in the last 24 hours. Input Total: 45.09 mL Output Total: 0 mL Balance: 45.09 mL VS/Measurements Measurements from flowsheet : Measurements 11/26/2018 4:58 EST Height Source Estimated Height Entry Format [place] Height/Length, MOZAMBICAN (ft) 5 ft Height/Length MOZAMBICAN 5 Inch CLINICALHEIGHT 165.1 cm Type of Weight Measurement. [place] Weight, est lb 220 lb Estimated Clinical Dosing Weight 100 kg [place] Body Weight 57 kg Weight Source Estimated 11/25/2018 18:35 EST Height Source Estimated Height Entry Format [place] Height/Length, MOZAMBICAN (ft) 5 ft Height/Length MOZAMBICAN 5 Inch CLINICALHEIGHT 165.1 cm [place] Body Weight 56.59 kg Weight Source, ED Critical estimated dosing weight Weight Entry Format Metric, kilograms Weight METRIC kg 103 kg CLINICALWEIGHT 103 kg Body Surface Area (BSA) 2.09 m2 Body Mass Index 37.8 kg/m2 HI , Vitals Signs (last 24 hrs) Last Charted Minimum Maximum Temp 98.7 (NOV 26 05:00) 98.7 (NOV 26 05:00) 99.0 (NOV 25:35) Mon HR 84 (NOV 26 08:29) 60 (NOV 26:30) 118 (NOV 25:30) Periph HR 91 (NOV 25:35) 91 (NOV 25:35) 91 (NOV 25:) Resp Rate 15 (NOV 26 08:29) 15 (NOV 26 08:29) H 22 (NOV 25:) SBP 112 (NOV 26 08:29) 98 (NOV 26 06:00) 139 (NOV 26 00:30) DBP 66 (NOV 26 08:) L 56 (NOV 26 06:00) 84 (NOV 26 04:00) MAP 84 (NOV 26 08:29) 75 (NOV 26 06:00) 109 (NOV 26 00:00) SpO2 99 (NOV 26 08:29) 96 (NOV 26 04:30) 100 (NOV 25:00) General: Alert and oriented, No acute distress. Eye: Pupils are equal, round and reactive to light, Normal conjunctiva. HENT: Normocephalic, Normal hearing, Oral mucosa is moist. Neck: Supple, Non-tender, No lymphadenopathy, No thyromegaly. Respiratory: Respirations are non-labored, Breath sounds are equal, Symmetrical chest wall expansion, No chest wall tenderness. Cardiovascular: Normal rate, Regular rhythm, No murmur, No edema. Gastrointestinal: Soft, Non-tender, Non-distended, Normal bowel sounds, No organomegaly, ruq ttp, . Genitourinary: No costovertebral angle tenderness. Musculoskeletal: Normal strength, No tenderness. Integumentary: Warm, Dry, No pallor. Neurologic: Alert, No focal deficits, Normal deep tendon reflexes. Psychiatric: Cooperative, Appropriate mood & affect. Results Review General results Interpretation: NOV 26 03:12 140 108 L 5 / 82 4.3 26 L 0.50 \ NOV 26 03:12 \ L 10.0 / L 2.4 216 / L 34.0 \ Labs (Last four charted values) WBC L 2.4 (NOV 26) L 2.9 (NOV 25) HB L 10.0 (NOV 26) 13.0 (NOV 25) HCT L 34.0 (NOV 26) 43.4 (NOV 25) Plt 216 (NOV 26) 235 (NOV 25) Na 140 (NOV 26) 140 (NOV 25) K 4.3 (NOV 26) 3.5 (NOV 25) Cl 108 (NOV 26) 103 (NOV 25) CO2 26 (NOV 26) 30 (NOV 25) BUN L 5 (NOV 26) L 5 (NOV 25) Cr L 0.50 (NOV 26) 0.70 (NOV 25) Glu R 82 (NOV 26) 86 (NOV 25) Ca L 7.4 (NOV 26) 8.9 (NOV 25) Lactic 0.8 (NOV 26) 1.0 (NOV 25) PT H 12.3 (NOV 26) INR 1.1 (NOV 26) AST H 1863 (NOV 26) H 1923 (NOV 25) ALT H 1322 (NOV 26) H 1430 (NOV 25) ALK P H 153 (NOV 26) H 173 (NOV 25) T Bili 0.6 (NOV 26) 0.6 (NOV 25) PTN L 5.9 (NOV 26) 7.8 (NOV 25) ALB L 2.7 (NOV 26) 3.7 (NOV 25) Lipase 102 (NOV 25) Troponin <0.015 (NOV 25) <0.015 (NOV 25) Radiology Results (Last 48 hours) [id number] -- 11/25/2018 22:24 CR Chest 1 Vw [...] personally viewed, interpreted and dictated the examination. Kin read and agree with the above final [...] personally viewed, interpreted and dictated the examination. Kin read and agree with the above final transcribed report. ACC: [id number] ORDER: Flu A/B Rapid Screen DATE: 11/25/2018 19:01 SOURCE: Nasal SITE: Reports Final 11/25/2018 20:07 Negative for Rapid Influenza A and B Antigen Rapid Influenza tests are for screening purposes only. Negative tests should be confirmed by more sensitive methodologies. == Impression and Plan 1. Hepatitis A. Acute, continue symptomatic treatment, intravenous fluids, pain control. continue Acetyl-Cysteine 2. Acute gastroenteritis. Patient with abdominal pain, nausea, vomiting, diarrhea. Contiue intravenous fluids. Await stool studies, continu empiric intravenous antibiotics LVQ and Flagyl, and the patient will be monitored closely. 3. Dehydration. We will start intravenous fluids. 4. Rule out acute cholecystitis. As per patient, she had been diagnosed with cholecystitis and evaluated, and patient was told that she needs surgical reevaluation when she feels better. Await gallbladder ultrasound. Await consult from Surgery, contiue intravenous fluids, empiric intravenous antibiotic with LVQ flagyl 5. Chest pain. First troponin normal. Recheck troponin. She was told that she had abnormal echocardiogram and needed to see Cardiology. We will request echocardiogram from outside facility and consider Cardiology evaluation. 6. Anxiety. start Ativan as needed. Gastrointestinal prophylaxis. Pepcid. Deep venous thrombosis prophylaxis. Heparin. Discharge goals: declining lfts, tolerating PO Time spent: 35 min Electronically signed by Ceasar Higginbotham Conversion Tester Electronic Scale Cerner at 02/21/2023 8:00 PM CDT documented in this encounter Plan of Treatment Not on file documented as of this encounter Visit Diagnoses Not on filedocumented in this encounter
--- OUTSIDE RECORDS SUMMARY | 2025-06-18 15:12 | XMS_ITS | Encounter Summary ---
Author Organization [employer] ([place], [place], [place], [place]) Address [address] [place] [address] Care Team Providers Care Land Leasing Examiner Name Role Phone Unavailable Primary Care Provider Unavailabl e Encounter Details Date Type Department Care Team (Late st Contact Info) Description 12/04/2018 Transcribed Document [facility] [place] [address] [place] [address] ProviderBonnie MD [address] [place] [address] Social History Tobacco Use Types Packs/Day Years Used Date Smoking Tobacco: Never Assessed Comments Unknown Sex and Gender Information Value Date Recorded Sex Assigned at Not on file Legal Sex Female 6:06 PM CDT Gender Identity Not on file Sexual Orientation Not on file documented as of this encounter Miscellaneous Notes * Cerner Conversion Note - Bonnie ProviderMD - 12/04/2018 10:52 AM ADMINISTRATIVE ASSOCIATE Patient Education Materials Follows: Cholelithiasis Cholelithiasis is also called gallstones. It is a kind of gallbladder disease. The gallbladder is an organ that stores a liquid (bile) that helps you digest fat. Gallstones may not cause symptoms (may be silent gallstones) until they cause a blockage, and then they can cause pain (gallbladder attack). Follow these instructions at home: ??? Take [id number] and prescription medicines only as told by [...] 04/10/2009 Document Revised: 07/09/2017 Document Reviewed: 07/09/2017 Elsevier Interactive Patient Education ? 2017 [employer] Infectious Disease Hepatitis A Hepatitis A is a liver [...] 11/25/2011 Document Revised: 03/30/2017 Document Reviewed: 01/28/2015 [employer] Interactive Patient Education ? 2017 [employer] Electronically signed by Ceasar Higginbotham Conversion Natural Resources Specialist Cerner at 02/21/2023 8:10 PM CDT documented in this encounter Plan of Treatment Not on file documented as of this encounter Visit Diagnoses Not on filedocumented in this encounter
--- OUTSIDE RECORDS SUMMARY | 2025-06-18 15:12 | XMS_ITS | Encounter Summary ---
Author Organization [facility] ([place], [place], [place], [place]) Address [address] [place] [address] Care Team Providers Care Train Inspector Name Role Phone Unavailable Primary Care Provider Unavailabl e Encounter Details Date Type Department Care Team (Late st Contact Info) Description 11/25/2018 Transcribed Document [facility] [place] Family Medicine [address] [place] [address] ProviderBonnie MD [address] [place] [address] Social History Tobacco Use Types Packs/Day Years Used Date Smoking Tobacco: Never Assessed Comments Unknown Sex and Gender Information Value Date Recorded Sex Assigned at Not on file Legal Sex Female 6:06 PM CDT Gender Identity Not on file Sexual Orientation Not on file documented as of this encounter Miscellaneous Notes * Cerner Conversion Note - Historical ProviderMD - 11/25/2018 6:20 PM WINE BOTTLE INSPECTOR ED Triage Entered On: 11/25/2018 18:44 EST Performed On: 11/25/2018 18:35 EST by Tien Augustin, PAYROLL TAX ANALYST Triage Across the Room Triage Date/Time : 11/25/2018 18:35 EST Chief Complaint : Patient awake, but in a catatonic state, not responding to family, started last night but came out of it to talk with boyfriend. Informant is , but they are getting . No hx of this state, no psych hx Tien Augustin, RN - 11/25/2018 18:35 EST DCP GENERIC CODE Tracking Acuity : 3 - Urgent Tracking Group : [facility] ED Tien Augustin, RN - 11/25/2018 18:35 EST Mode of Arrival : Wheelchair Transported to ED by : Private vehicle To Room Via : Wheelchair Accompanied By : Spouse ED Vital Signs : Document Height & Weight : Document ED Allergies : Document ED Infection Control : No ED Reason for Visit : Document Tien Augustin RN - 11/25/2018 18:35 EST Infectious Disease History Infectious Disease History : Chicken pox/Shingles, MRSA Isolation Needed : Standard Fever/Chills Last 48 Hours : No Travel To Regions with Travel Advisories : No Travel Outside [place] Within Last 30 Days : No Contact With Traveler to Advisory Region : No Tuberculosis Symptoms : None Tien Augustin RN - 11/25/2018 18:35 EST Vital Signs ED Temperature Source : Oral Temperature Mode : Fahrenheit Temperature, Fahrenheit : 99.0 Deg F Clinical Temperature, C : 37.2 Deg C Oxygen Therapy Mode : Room air Peripheral Pulse Rate : 91 bpm Respiratory Rate : 16 Breaths/Min Systolic Blood Pressure : 122 mmHg Diastolic Blood Pressure : 76 mmHg Oxygen Saturation : 99 % Tien Augustin RN - 11/25/2018 18:35 EST Allergy (As Of: 11/25/2018 18:44:56 EST) Allergies (Active) Ceclor Estimated Onset Date: Unspecified ; Created By: DEJA FITZPATRICK RN; Reaction Status: Active ; Category: Drug ; Substance: Ceclor ; Type: Allergy ; Updated By: DEJA FITZPATRICK RN; Reviewed Date: 11/25/2018 18:43 EST penicillin Estimated Onset Date: Unspecified ; Reactions: seizure ; Created By: Judith Coyne RN; Reaction Status: Active ; Category: Drug ; Substance: penicillin ; Type: Allergy ; Updated By: Judith Coyne RN; Reviewed Date: 11/25/2018 18:43 EST Diagnosis Control ED (As Of: 11/25/2018 18:44:56 EST) Problems(Active) Abnormal vaginal bleeding (SNOMED CT :122328969 ) Name of Problem: Abnormal vaginal bleeding ; Recorder: MARQUITA GIBBS RN; Confirmation: Confirmed ; Classification: Medical ; Code: [id number] ; Contributor System: Benefitter ; Last Updated: 10/18/2017 15:33 EST ; Life Cycle Date: 10/18/2017 ; Life Cycle Status: Active ; Vocabulary: SNOMED CT ; Comments: 10/18/2017 15:33 - MARQUITA GIBBS RN heavy Anemia (SNOMED CT :259377358 ) Name of Problem: Anemia ; Recorder: MARQUITA GIBBS RN; Confirmation: Confirmed ; Classification: Medical ; Code: [id number] ; Contributor System: PowerChart ; Last Updated: 10/18/2017 15:31 EST ; Life Cycle Date: 10/18/2017 ; Life Cycle Status: Active ; Vocabulary: SNOMED CT Dyspareunia in female (SNOMED CT :875353986 ) Name of Problem: Dyspareunia in female ; Recorder: MARQUITA GIBBS RN; Confirmation: Confirmed ; Classification: Medical ; Code: [id number] ; Contributor System: PowerChart ; Last Updated: 10/18/2017 15:32 EST ; Life Cycle Date: 10/18/2017 ; Life Cycle Status: Active ; Vocabulary: SNOMED CT Endometriosis (SNOMED CT :541645556 ) Name of Problem: Endometriosis ; Recorder: DEJA FITZPATRICK RN; Confirmation: Confirmed ; Classification: Medical ; Code: [id number] ; Contributor System: PowerChart ; Last Updated: 10/06/2017 9:33 EST ; Life Cycle Date: 10/06/2017 ; Life Cycle Status: Active ; Vocabulary: SNOMED CT Metrorrhagia (SNOMED CT :315433567 ) Name of Problem: Metrorrhagia ; Recorder: MARQUITA GIBBS RN; Confirmation: Confirmed ; Classification: Medical ; Code: [id number] ; Contributor System: [employer]Chart ; Last Updated: 10/18/2017 15:36 EST ; Life Cycle Date: 10/18/2017 ; Life Cycle Status: Active ; Vocabulary: SNOMED CT Diagnoses(Active) Altered mental status Date: 11/25/2018 ; Diagnosis Type: Reason For Visit ; Confirmation: Complaint of ; Clinical Dx: Altered mental status ; Classification: Medical ; Clinical Service: Emergency medicine ; Code: PNED ; Probability: 0 ; Diagnosis Code: [id number] ED Height and Weight Height Source : Estimated Height Entry Format : Breaks Height, Feet : 5 ft(Converted to: 152 cm, 60 Inch) Height, Inches : 5 Inch(Converted to: 0 ft 5 Inch, 12.70 cm) Clinical Height : 165.1 cm Weight Source, ED : Critical estimated dosing weight Weight Entry Format : Metric, kilograms Weight, Kilograms : 103 kg(Converted to: 227 lb 1 oz) Clinical Dosing Weight : 103 kg Body Surface Area (BSA) : 2.09 m2 Body Mass Index : 37.8 kg/m2 (HI) [place] Body Weight (IBW) : 56.59 kg Tien Augustin RN - 11/25/2018 18:35 EST Electronically signed by Neftaly [facility] Conversion Shredded Filler Cigar Maker Machine Cerner at 02/21/2023 8:18 PM CDT documented in this encounter Plan of Treatment Not on file documented as of this encounter Visit Diagnoses Not on filedocumented in this encounter
--- OUTSIDE RECORDS SUMMARY | 2025-06-18 15:12 | XMS_ITS | Encounter Summary ---
Author Organization [employer] ([place], [place], [place], [place]) Address [address] [place] [address] Care Team Providers Care Town Administrator Name Role Phone Unavailable Primary Care Provider Unavailabl e Encounter Details Date Type Department Care Team (Late st Contact Info) Description 12/03/2018 Transcribed Document [facility] [place] [address] [place] [address] ProviderBonnie MD [address] [place] [address] Social History Tobacco Use Types Packs/Day Years Used Date Smoking Tobacco: Never Assessed Comments Unknown Sex and Gender Information Value Date Recorded Sex Assigned at Not on file Legal Sex Female 6:06 PM CDT Gender Identity Not on file Sexual Orientation Not on file documented as of this encounter Miscellaneous Notes * Cerner Conversion Note - Historical Provider, - 12/03/2018 12:06 PM MANAGER OF TAX Discharge Instructions Entered On: 12/03/2018 12:10 EST Performed On: 12/03/2018 12:06 EST by Jackie Alvarez RN DC Instructions HWD Stroke/TIA Discharge Ins : N/A Heart Failure Discharge Ins : N/A Warfarin Discharge Ins : N/A Jackie Alvarez RN - 12/03/2018 12:06 EST Diet After Discharge : GI soft/Low residue/Low fiber Nyla May RN - 12/04/2018 10:42 EST Activity After Discharge : As tolerated, No strenuous activities Driving After Discharge : Do not drive Showering/Bathing : May shower Jackie Alvarez RN - 12/03/2018 12:06 EST Electronically signed by Neftaly [facility] Conversion Asphalt Paving Supervisor Cerner at 02/21/2023 8:14 PM CDT documented in this encounter Plan of Treatment Not on file documented as of this encounter Visit Diagnoses Not on filedocumented in this encounter
--- OUTSIDE RECORDS SUMMARY | 2025-06-18 15:12 | XMS_ITS | Encounter Summary ---
Author Organization [facility] ([place], [place], [place], [place]) Address [address] [place] [address] Care Team Providers Care Level Vial Inside Grinder Name Role Phone Unavailable Primary Care Provider Unavailabl e Encounter Details Date Type Department Care Team (Late st Contact Info) Description 11/26/2018 Transcribed Document [facility] [place] [address] [place] [address] ProviderBonnie MD [address] [place] [address] Social History Tobacco Use Types Packs/Day Years Used Date Smoking Tobacco: Never Assessed Comments Unknown Sex and Gender Information Value Date Recorded Sex Assigned at Not on file Legal Sex Female 6:06 PM CDT Gender Identity Not on file Sexual Orientation Not on file documented as of this encounter Miscellaneous Notes * Cerner Conversion Note - Historical ProviderMD - 11/26/2018 4:30 AM URGENT CARE TECHNICIAN ED Event Note Entered On: 11/26/2018 5:30 EST Performed On: 11/26/2018 4:30 EST by Wendy Rodriges Rn ED Event Note ED Description of Event : Pt placed in hospital bed. No distress noted at this time. Will continue to monitor. Wendy Rodriges Rn - 11/26/2018 5:28 EST documented in this encounter Plan of Treatment Not on file documented as of this encounter Visit Diagnoses Not on filedocumented in this encounter
--- OUTSIDE RECORDS SUMMARY | 2025-06-18 15:12 | XMS_ITS | Clinical Summary ---
Author Organization [facility] Address [address] [place] [address] Care Team Providers Care Top Printing Press Operator Name Role Phone Az Mills MD Primary Care Provider [phone] Allergies Active Allergy Reactions Criticality Noted Date Comments Cefaclor Hives High 04/12/2020 Penicillins Shortness Of Breath High 04/12/2020 Medications * This document contains information received from the source organization and may not represent a complete record from that organization. gabapentin (NEURONTIN) 300 MG capsule Take 300 mg by mouth 3 (Three) Times a Day. Active omeprazole (priLOSEC) 20 MG capsule Take 20 mg by mouth Daily. Active DULoxetine (CYMBALTA) 30 MG capsule Take 30 mg by mouth Daily. Active diphenhydrAMINE (BENADRYL) 25 mg capsule Take 25 mg by mouth At Night As Needed for Itching or Allergies. Active aspirin 81 MG EC tablet Take 1 tablet by mouth Every 12 (Twelve) Hours. 0 Active docusate sodium (Colace) 100 MG capsule Take 1 capsule by mouth 2 (Two) Times a Day. 0 Active oxyCODONE (ROXICODONE) 5 MG immediate release tabletIndication s:Total knee replacement status, left Take 1 tablet by mouth Every 4 (Four) Hours As Needed for Moderate Pain . 60 tablet 0 Active Active Problems Problem Noted Date Diagnosed Date Arthritis of left knee 07/02/2020 S/P total knee arthroplasty, left 07/02/2020 Total knee replacement status, left 07/02/2020 Acute postoperative pain 04/16/2020 Arthritis of right knee 04/15/2020 Status post total right knee replacement 020 Obesity (BMI 30-39.9) 04/15/2020 Social History Tobacco Use Types Packs/Day Years Used Date Smoking Tobacco: Never Smokeless Tobacco: Never Alcohol Use Standard Drinks/Week Comments Not Currently 0 (1 standard drink = 0.6 oz pur e alcohol) Abuse Screen Answer Date Recorded Unsafe at Home or Work/School Not on file Feels Threatened by Someone? Not on file 10/2023 Does Anyone Keep You from Co ntacting Others or Doint Things Outside the Home? Not on file 08/17/2023 Physical Sign of Abuse Present Not on file 1 Housing Stability Answer Date Recorded Current Living Arrangements Not on file 08/06 Potentially Unsafe Housing Conditions Not on jordana e 08/17/2023 Family and Community Support Answer Shen e Recorded Help with Day-to-Day Activities Not on file 08/17/2023 Lonely or Isolated Not on file 08/17/2023 Employment Answer Date Recorded Do you want help finding or keeping work or a john b? Not on file 08/17/2023 Disabilities Answer Date Recorded Concentrating, Remembering, or Making Decisions Difficulty Not on file 08/17/2023 Doing Errands Independently Difficulty Not on fi le 08/17/2023 Education Answer Date Recorded Help with school or training? Not on file Preferred Language Not on file 08/17/2023 Comments No Sex and Gender Information Value Date Recorded Sex Assigned at Not on file Legal Sex Female 9:22 AM EST Gender Identity Not on file Sexual Orientation Not on file Last Filed Vital Signs Vital Sign Reading Time Taken Comments Blood Pressure 126/79 08/13/2020 8:45 AM EDT Pulse 76 08/13/2020 8:45 AM EDT Temperature 36.9 C (98.4 F) 08/13/2020 8:45 AM EDT Respiratory Rate 16 08/13/2020 8:45 AM EDT Oxygen Saturation 99% 08/13/2020 8:45 AM EDT Inhaled Oxygen Concentration - - Weight 99.8 kg (220 lb) 08/13/2020 6:43 AM EDT Height 165.1 cm (5' 5 ) 08/13/2020 6:43 AM EDT Body Mass Index 36.61 08/13/2020 6:43 AM EDT Plan of Treatment Health Maintenance Due Date Last Done Comments Annual Gynecologic Pelvic an d Breast Exam 1982 TDAP/TD VACCINES (2 - Tdap) 12/20/2006 12/20/1996 ANNUAL PHYSICAL 11/18/2019 HEPATITIS C SCREENING 11/18/2019 MAMMOGRAM 2022 COVID-19 Vaccine ( - 2023-2 5 season) 2024 INFLUENZA VACCINE 08/06/2025 09/08/2022 Pneumococcal Vaccine 0-49 Aged Out 11/30/2018 No longer eligible based on patient's age to complete this topic Medical Devices Implanted Type Area Pest Control Chemical Technician Device Identifier Shelf Expiration Date Model / Serial / Lot Sut Contrl Tiss Stratafix Spiral Pdo Bidir 1 [id number] - [id number] Implanted:Qty: 1 on 04/15/2020 by Eddie Jenkins MD at [facility] Implant Right: Knee [employer] DIV OF J AND J [id number] / / Comp Fem Triath Ps Bead W/Pa No4 Rt - [id number] Implanted:Qty: 1 on 04/15/2020 by Eddie Jenkins MD at [facility] Implant Right: Knee ALLEN KYLIE 10/13/2024 [id number] / / [id number] Insrt Tib Triath Ps X3 No4 9mm - [id number] Implanted:Qty: 1 on 04/15/2020 by Eddie Jenkins MD at [facility] Implant Right: Knee ALLEN KYLIE 11/29/2023 [id number] / / [id number] Baseplt Tib Triath Tritanium Sz4 - [id number] Implanted:Qty: 1 on 04/15/2020 by Eddie Jenkins MD at [facility] Implant Right: Knee ALLEN KYLIE 12/05/2024 [id number] / / [id number] Pat Triath Tritanium [id number] - [id number] Implanted:Qty: 1 on 04/15/2020 by Eddie Jenkins MD at [facility] Implant Right: Knee ALLEN KYLIE 10/19/2024 [id number] / / [id number] Cap Total Kn Cmtls 4 Pc - [id number] Implanted:Qty: 1 on 04/15/2020 by Eddie Jenkins MD at [facility] Implant Right: Knee ALLEN KYLIE CAPKNCEMEN [id number] / / Insrt Tib Triath Ps X3 No4 9mm - [id number] Implanted:Qty: 1 on 07/02/2020 by Eddie Jenkins MD at [facility] Implant Left: Knee ALLEN KYLIE 08/27/2024 [id number] / / [id number] Pat Triath Tritanium [id number] - [id number] Implanted:Qty: 1 on 07/02/2020 by Eddie Jenkins MD at [facility] Implant Left: Knee ALLEN KYLIE 04/27/2025 [id number] / / [id number] Cap Total Kn Cmtls 4 Pc - [id number] Implanted:Qty: 1 on 07/02/2020 by Eddie Jenkins MD at [facility] Implant Left: Knee ALLEN KYLIE CAPKNCEMEN [id number] / / Sut Contrl Tiss Stratafix Spiral Pdo Bidir 1 [id number] - [id number] Implanted:Qty: 1 on 07/02/2020 by Eddie Jenkins MD at [facility] Implant Left: Knee [employer] DIV OF J AND J [id number] / / Comp Fem Triath Ps Bead W/Pa No4 Lt - [id number] Implanted:Qty: 1 on 07/02/2020 by Eddie Jenkins MD at [facility] Implant Left: Knee ALLEN KYLIE 12/04/2024 [id number] / / [id number] Baseplt Tib Triath Tritanium Sz4 - [id number] Implanted:Qty: 1 on 07/02/2020 by Eddie Jenkins MD at [facility] Implant Left: Knee ALLEN KYLIE 11/30/2024 [id number] / / [id number] Insurance [facility] Advance Directives * CPR (Attempt to Resuscitate) (Latest Code Status on File) Date Activated Date Inactivated Comments 07/02/2020 4:18 PM 07/03/2020 3:56 PM Question Answer Comments Code Status (Patient has no pulse and is not breathing): CPR (Attempt to Resuscitate) Medical Interventions (Patie nt has pulse or is breathing): Full Level Of Support Discussed With: Patient * CPR (Attempt to Resuscitate) Date Activated Date Inactivated Comments 04/15/2020 10:22 AM 04/16/2020 7:08 PM Question Answer Comments Code Status (Patient has no pulse and is not breathing): CPR (Attempt to Resuscitate) Medical Interventions (Patie nt has pulse or is breathing): Full Level Of Support Discussed With: Patient Care Teams Top Printing Press Operator Relationship Specialty Start Date End Date Az Mills MD PCP - General Emergency Medicine 09/26/19
--- OUTSIDE RECORDS SUMMARY | 2025-06-18 15:12 | XMS_ITS | Encounter Summary ---
Author Organization [employer] [facility] ([place], [place], [place], [place]) Address [address] [place] [address] Care Team Providers Care Cost Accountant Name Role Phone Unavailable Primary Care Provider Unavailabl e Encounter Details Date Type Department Care Team (Late st Contact Info) Description 11/26/2018 Transcribed Document [facility] [place] [address] [place] [address] ProviderBonnie MD [address], [place] [id number] Social History Tobacco Use Types Packs/Day Years Used Date Smoking Tobacco: Never Assessed Comments Unknown Sex and Gender Information Value Date Recorded Sex Assigned at Not on file Legal Sex Female 6:06 PM CDT Gender Identity Not on file Sexual Orientation Not on file documented as of this encounter Miscellaneous Notes * Cerner Conversion Note - Bonnie ProviderMD - 11/26/2018 1:41 AM MOUNTAIN OR GLACIER GUIDE DATE OF ADMISSION: 11/25/2018 PRIMARY CARE PHYSICIAN: Not listed. CHIEF COMPLAINT: Abdominal pain/chest pain. HISTORY OF PRESENT ILLNESS: This is a 38-year-old female who presented to the ER because of not feeling well. Patient said for the last two weeks she has been having nausea, vomiting, diarrhea, headache, dizziness, fever, chills chest pain. Her symptoms are getting worse. Patient was evaluated at outside facility in the ER and been admitted for abdominal pain, diagnosed with hepatitis A. The patient had also been complaining about chest pain, had echo of the heart done, and was abnormal. As per patient, she was advised to see Cardiology sooner. The patient came to the ER at [facility] because her symptoms were not getting well. She was still nauseated, vomiting, diarrhea, not eating, dehydrated, fever, chills, chest pain, back pain. Symptoms getting worse. In ER, patient had blood work done, shows elevated liver enzymes. Had low-grade fever. Culture was ordered. Started on IV fluids. Empiric IV antibiotics. The patient also was told in the other hospital that she has cholecystitis, but surgery was postponed until she gets better from hepatitis A. SYSTEMIC REVIEW: GENERAL: Positive for fever and chills. HEAD: Positive for headache and dizziness. EYES: No change of vision. EARS: No earache. NOSE: No epistaxis. THROAT: No sore throat. RESPIRATORY: Positive for shortness of breath and cough. CARDIAC: Positive for chest pain and palpitation. GI: Positive for nausea, vomiting, diarrhea, abdominal pain. URINARY: No hematuria. MUSCULOSKELETAL: Generalized weakness. NEUROLOGICAL: No focal numbness or weakness. SKIN: Positive for yellow skin. ENDOCRINE: No heat or cold intolerance. PAST MEDICAL HISTORY: 1. Endometriosis. 2. Menorrhagia. 3. History of anemia. 4. Vaginal bleeding. PAST SURGICAL HISTORY: Gastric bypass. SOCIAL HISTORY: Patient is a nonsmoker. No alcohol or drug abuse. FAMILY HISTORY: Positive for heart disease. ALLERGIES: 1. PENICILLIN. 2. CECLOR. HOME MEDICATIONS: 1. Multivitamin daily. 2. Norethindrone 5 mg twice daily. PHYSICAL EXAMINATION: VITAL SIGNS: Blood pressure 122/76, temperature 99.0, respiratory rate 16. HEAD: Atraumatic, normocephalic. EYES: Pupils are round and reactive. No conjunctival injection or discharge. Positive for yellow sclerae. EARS: No discharge. NOSE: No bleeding or discharge. MOUTH: Dry NECK: Supple. No JVD or lymphadenopathy. Full range of motion. CHEST: Poor inspiratory effort. Clear to auscultation. No crackles, wheezes, or rhonchi. HEART: S1 and S2 heard. Regular rate and rhythm. ABDOMEN: Soft. Generalized tenderness. No guarding. No rebound tenderness. EXTREMITIES: No edema, erythema, or tenderness. NEUROLOGICAL: No apparent focal motor or sensory deficits. Patient is alert, awake, oriented x3. Intact cranial nerves. PSYCHIATRIC: Positive for anxiety. SKIN: Yellow skin. ENDOCRINE: No thyromegaly or tenderness. GENERAL: Patient is lying in bed, mild distress, anxious. at bedside. LABORATORIES AND STUDIES: Sodium 140, potassium 3.5, chloride 103, CO2 of 30, glucose 86, BUN 5, creatinine 0.7, calcium 8.9, protein 7.8, albumin 3.8, globulin 4.1, bilirubin 0.6, alkaline phosphatase 173, AST 1923, ALT 1430, magnesium 2.2, lactic acid 1.0. Troponin 0.015. White blood cells 2.9, hemoglobin 13.0, hematocrit 43.4, platelets 235. ASSESSMENT AND PLAN: 1. Acute gastroenteritis. Patient with abdominal pain, nausea, vomiting, diarrhea. Patient started on intravenous fluids. We will check stool studies, start empiric intravenous antibiotics with Merrem and Flagyl, and the patient will be monitored closely. 2. Rule out acute cholecystitis. As per patient, she had been diagnosed with cholecystitis and evaluated, and patient was told that she needs surgical reevaluation when she feels better. We will check gallbladder ultrasound. We will consult Surgery, start intravenous fluids, empiric intravenous antibiotic with Merrem. 3. Dehydration. We will start intravenous fluids. 4. Hepatitis A. We will check hepatitis panel. Start symptomatic treatment, intravenous fluids, pain control. 5. Chest pain. Patient with chest pain. First troponin normal. Recheck troponin. Patient was told that she had abnormal echocardiogram and needed to go to see Cardiology. We will request echocardiogram from outside facility and consider Cardiology evaluation. 6. Anxiety. We will start Ativan as needed. 7. Gastrointestinal prophylaxis. Pepcid. 8. Deep venous thrombosis prophylaxis. Heparin. Plan discussed with emergency room physician, with the patient, with her . Chart was reviewed. TIME SPENT: 55 minutes. Lynn Murray M.D. Dict: 11/26/2018 01:41:42 Trans: 11/26/2018 02:34:55 CC1: yLnn Murray M.D. documented in this encounter Plan of Treatment Not on file documented as of this encounter Visit Diagnoses Not on filedocumented in this encounter
--- OUTSIDE RECORDS SUMMARY | 2025-06-18 15:12 | XMS_ITS | Encounter Summary ---
Author Organization [employer] ([place], [place], [place], [place]) Address [address] [place] [address] Care Team Providers Care Power Grader Operator Name Role Phone Unavailable Primary Care Provider Unavailabl e Encounter Details Date Type Department Care Team (Late st Contact Info) Description 12/03/2018 Transcribed Document [facility] [place] Family Medicine [address] [place] [address] ProviderBonnie MD [address] [place] [address] Social History Tobacco Use Types Packs/Day Years Used Date Smoking Tobacco: Never Assessed Comments Unknown Sex and Gender Information Value Date Recorded Sex Assigned at Not on file Legal Sex Female 6:06 PM CDT Gender Identity Not on file Sexual Orientation Not on file documented as of this encounter Miscellaneous Notes * Cerner Conversion Note - Historical ProviderMD - 12/03/2018 4:47 PM WINDOWS DESKTOP ENGINEER Care Management Assessment/Plan Entered On: 12/03/2018 16:48 EST Performed On: 12/03/2018 16:47 EST by Lexy Lewis RN Care Management Note Care Management Note : Clinical updates: alb-2.4/alk phos-187/AST-389/ALT-672/INR-1.2. Pt wanting to try solid foods--diet advaned to soft GI. Pt has been up ambulating by self in room. Likely dc in 1-2 days if continued improvement. Care Management Note Report : Lexy Lewis RN - 11/30/18 18:05:26 Pt still with severe N/V with any [...] INR >1.5 CM will continue to follow. Lexy Lewis RN - 11/29/18 17:25:13 Clinical updates: Alk phos-188/AST-2080/ALT-2147. Pt underwent MRCP- 1) Abnormal appearance of thick-walled gallbladder. Acute gallbladder disease not excluded. Consider hepatobiliary imaging, 2) Nonspecific periportal edema which could be related to gallbladder disease, 3) Recommend hepatobiliary imaging, and 4) Mild splenomegaly. CM will continue to follow. Lexy Lewis RN - 11/28/18 16:36:29 Clinical updates: K-3.4/scr-0.50/Alb-2.4/Bili-2.0/Alk Phos-195/AST-2793/ALT-2285/INR-1.4/Fe-27. MRCP pending. Met with pt at bedside this am and informed pt of CM role. DCP still unkown at this time. CM will continue to follow. Lexy Lewis RN - 11/27/18 14:56:21 [id number] Documentation Status Complete : Yes Lexy Lewis RN - 12/03/2018 16:47 EST Electronically signed by [facility], [facility] Conversion Director Of Clinical Education Cerner at 02/21/2023 8:07 PM CDT documented in this encounter Plan of Treatment Not on file documented as of this encounter Visit Diagnoses Not on filedocumented in this encounter
--- OUTSIDE RECORDS SUMMARY | 2025-06-18 15:12 | XMS_ITS | Encounter Summary ---
Author Organization [employer] ([place], [place], [place], [place]) Address [address] [place] [address] Care Team Providers Care Felt Strip Finisher Name Role Phone Unavailable Primary Care Provider Unavailabl e Encounter Details Date Type Department Care Team (Late st Contact Info) Description 11/25/2018 Transcribed Document [facility] [place] Family Medicine [address] [place] [address] ProviderBonnie MD [address] [place] [address] Social History Tobacco Use Types Packs/Day Years Used Date Smoking Tobacco: Never Assessed Comments Unknown Sex and Gender Information Value Date Recorded Sex Assigned at Not on file Legal Sex Female 6:06 PM CDT Gender Identity Not on file Sexual Orientation Not on file documented as of this encounter Miscellaneous Notes * Cerner Conversion Note - Historical ProviderMD - 11/25/2018 7:16 PM CUSTOMER ENGAGEMENT REPRESENTATIVE ED POC - URINE HCG Entered On: 11/25/2018 19:42 EST Performed On: 11/25/2018 19:42 EST by Sandra Rubio RN Point of Care Urine HCG HCG Result : Negative Internal Control Line Present : Yes Sandra Rubio RN - 11/25/2018 19:42 EST Electronically signed by Neftaly [facility] Conversion Ostomy Rn Cerner at 02/21/2023 8:09 PM CDT documented in this encounter Plan of Treatment Not on file documented as of this encounter Visit Diagnoses Not on filedocumented in this encounter
--- OUTSIDE RECORDS SUMMARY | 2025-06-18 15:12 | XMS_ITS | Encounter Summary ---
Author Organization [employer] ([place], [place], [place], [place]) Address [address] [place] [address] Care Team Providers Care Director Of Student Financial Services Name Role Phone Unavailable Primary Care Provider Unavailabl e Encounter Details Date Type Department Care Team (Late st Contact Info) Description 11/25/2018 Transcribed Document [facility] [place] [facility] [place] [address] [place] [address] ProviderBonnie MD [address] [place] [address] Social History Tobacco Use Types [...] - Historical ProviderMD - 11/25/2018 6:20 PM HORSEBACK RIDING INSTRUCTOR ED Assessment Entered On: 11/25/2018 19:36 EST Performed On: 11/25/2018 19:35 EST by LINDA BRADFORD RN ED Quick Look Assessment Level of Consciousness : Awake, Drowsy Affect/Behavior : Appropriate, Calm, Anxious Orientation : Not oriented to place, Not oriented to situation, Not oriented to time Skin Temperature : Warm LINDA BRADFORD RN - 11/25/2018 19:35 EST ED General-Functional Assess Information Obtained From : Patient, Medical Record Preferred Communication Mode : Verbal Communication Barrier : Medical condition Primary Language : [place] Any Spiritual/Cultural Needs or Requests : No Currently in Unsafe Situation : No LINDA BRADFORD RN - 11/25/2018 19:35 EST Social Habits Smoking Status : Never (less than 100 in lifetime; none in last 30 days) Smokeless Tobacco Status : Never Desires Tobacco Cessation Calc : 0 LINDA BRADFORD RN - 11/25/2018 19:35 EST Social History (As Of: 11/25/2018 19:36:56 EST) Tobacco: Smoking Status Never smoker. (Last Updated: 10/18/2017 15:37:59 EST by MARQUITA GIBBS RN) Smoking Status Never smoker. (Last Updated: 10/24/2017 07:55:01 EST by Judith Coyne RN) Alcohol: Alcohol Use History No. (Last Updated: 10/18/2017 15:38:03 EST by MARQUITA GIBBS RN) Alcohol Use History Yes. Alcohol Use Frequency Rarely. (Last Updated: 10/24/2017 07:55:01 EST by Judith Coyne RN) Substance Abuse: Drug Use Hx: No. (Last Updated: 10/24/2017 07:55:01 EST by Judiht Coyne RN) Home/Environment: Lives with Children. (Last Updated: 10/18/2017 15:38:16 EST by MARQUITA GIBBS RN) Employment/School: Unemployed (Last Updated: 10/18/2017 15:38:21 EST by MARQUITA GIBBS RN) Respiratory Breath Sounds Auscultated : Anterior Respiratory Assessment WDL : WDL Cough : None LINDA BRADFORD RN - 11/25/2018 19:35 EST Breath Sounds Assessment Grid All Lobes Breath Sounds : Clear JEFF : Clear LLL : Clear RUL : Clear RML : Clear RLL : Clear LINDA BRADFORD RN - 11/25/2018 19:35 EST Gastrointestinal ED Gastrointestinal Assessment WDL : WDL with exceptions Gastrointestinal Symptoms : Abdominal pain, Nausea LINAD BRADFORD RN - 11/25/2018 19:35 EST Electronically signed by Ceasar Higginbotham Conversion Nurses' Registry Director Cerner at 02/21/2023 8:15 PM CDT documented in this encounter Plan of Treatment Not on file documented as of this encounter Visit Diagnoses Not on filedocumented in this encounter
--- OUTSIDE RECORDS SUMMARY | 2025-06-18 15:12 | XMS_ITS | Encounter Summary ---
Author Organization [employer] ([place], [place], [place], [place]) Address [address] [place] [address] Care Team Providers Care Rocket Motor Tester Name Role Phone Unavailable Primary Care Provider Unavailabl e Encounter Details Date Type Department Care Team (Late st Contact Info) Description 12/03/2018 Transcribed Document [facility] [place] [address] [place] [address] ProviderBonnie MD [address] [place] [address] Social History Tobacco Use Types Packs/Day Years Used Date Smoking Tobacco: Never Assessed Comments Unknown Sex and Gender Information Value Date Recorded Sex Assigned at Not on file Legal Sex Female 6:06 PM CDT Gender Identity Not on file Sexual Orientation Not on file documented as of this encounter Miscellaneous Notes * Cerner Conversion Note - Historical ProviderMD - 12/03/2018 12:04 PM ACCOUNT SERVICES MANAGER Nursing Discharge Summary Entered On: 12/03/2018 12:05 EST Performed On: 12/03/2018 12:04 EST by Jackie Alvarez community assistant Documentation Patient Disposition, General : Discharge Discharge To : Home with ambulatory/outpatient follow-up Mode Of Departure, General Discharge : Private vehicle, Wheelchair Accompanied By, Discharge : Spouse IV Discontinued : Yes Medications Given to Patient : No Personal Belongings With Patient : Yes Pt's Own Supply of Medications Returned : No Jcakie Alvarez RN - 12/03/2018 12:04 EST Prescriptions Given to Patient : Electronically sent Nyla May RN - 12/04/2018 10:41 EST Discharge Instructions Reviewed With, Opportunity For Questions Given : Patient, Spouse Patient Education Completed : Yes Jackie Alvarez RN - 12/03/2018 12:04 EST Teaching Method : Demonstration, Explanation, Printed materials Nyla May RN - 12/04/2018 10:41 EST Teaching Evaluation : Returns demonstration, Verbalizes understanding Education Comment : medication education provided Jackie Alvarez, RN - 12/03/2018 12:04 EST Electronically signed by Neftaly, [facility] Conversion Mobile Application Development Lead Cerner at 02/21/2023 8:13 PM CDT documented in this encounter Plan of Treatment Not on file documented as of this encounter Visit Diagnoses Not on filedocumented in this encounter
--- OUTSIDE RECORDS SUMMARY | 2025-06-18 15:12 | XMS_ITS | Encounter Summary ---
Author Organization [employer] ([place], [place], [place], [place]) Address [address] [place] [address] Care Team Providers Care Information Security Specialist Name Role Phone Unavailable Primary Care Provider Unavailabl e Encounter Details Date Type Department Care Team (Late st Contact Info) Description 12/03/2018 Transcribed Document [facility] [place] Family Medicine [address] [place] [address] ProviderBonnie MD [address] [place] [address] Social History Tobacco Use Types Packs/Day Years Used Date Smoking Tobacco: Never Assessed Comments Unknown Sex and Gender Information Value Date Recorded Sex Assigned at Not on file Legal Sex Female 6:06 PM CDT Gender Identity Not on file Sexual Orientation Not on file documented as of this encounter Miscellaneous Notes * Cerner Conversion Note - Historical ProviderMD - 12/03/2018 8:56 AM CONSTRUCTION MILLWRIGHT PLEASE MODIFY BEFORE SIGNING CLINICAL DOCUMENTATION CLARIFICATION FORM: Dear : [place] Date: 12/03/18 Please exercise your independent, professional judgment in responding to the clarification form. Clinical indicators are provided on the bottom of this form for your review Please check appropriate box(s): Encephalopathy: Type: [ x ] Acute [ ] Subacute [ ] Chronic Etiology: [ ] Metabolic [ x ] Hepatic w/o Coma [ ] Unspecified [ ] Other (please specify) [ ] Transient Alteration of Awareness [ ] Other diagnosis [ ] Unable to determine For continuity of documentation, please document condition throughout progress notes and discharge summary. Thank You. To be completed by CDI/Coding staff for physician review: Present Clinical Indicators - Signs / Symptoms / Labs Results and Location in Medical Record x Altered mental status / confusion (i.e. improving once cause is corrected) 11/25/18- per Nurse notes- not oriented to place, situation, or time 11/26/18- per Surgery note- Patient awake, but in a catatonic state, not responding to family, started last night but came out of it to talk with boyfriend. Informant is , but they are getting . No hx of this state, no psych hx. 12/01/18- per PN- AMS 12/02/18- per Nurse notes- Alert and oriented X 4 x Documentation of ? Encephalopathy 11/30/18- per GI- Question of encephalopathy on admission, seemingly resolved now-on lactulose. x Metabolic / electrolyte abnormality 11/27/18- per Labs- calcium- 7.8, protein- 5.6, albumin- 2.5 x Liver disease 11/25/18- per Labs- Alk. phos.- 173, AST- 1,923, ALT- 1,430 Present Risk Factors Results and Location in Medical Record x Current Illness 12/03/18- per PN- Acute Hepatitis A, Jaundice, Acute Gastroenteritis, dehydration, Coagulopathy, hypokalemia Present Treatments Results and Location in Medical Record x IV Fluids 11/25/18- per MD Order- NS IV (1,000 ML) X 1 11/30/18- per MD Order- NS IV (1,000 ML) x 1 x IV Antibiotics 11/26/18- per MD Order- Levaquin 750 MG IV Q 24 hrs, Merrem 500 MG IV Q 6 hrs, and Flagyl 500 MG IV Q 6 hrs x Lactulose and Liver studies 11/26/18- per order- Lactulose 10 Grams PO Q 8 hrs 11/25/18- 12/03/18- per MD order- Hepatic Function Panel Q AM CDS/Client Development Director Signature: Marleny Neri RN Phone #:[phone] This is a permanent part of the Medical Record Electronically signed by Ceasar Higginbotham Conversion Account Executive Key Accounts Cerner at 02/21/2023 8:20 PM CDT documented in this encounter Plan of Treatment Not on file documented as of this encounter Visit Diagnoses Not on filedocumented in this encounter
--- OUTSIDE RECORDS SUMMARY | 2025-06-18 15:12 | XMS_ITS | Encounter Summary ---
Author Organization [employer] ([place], [place], [place], [place]) Address [address] [place] [address] Care Team Providers Care Deputy Chief Counsel Name Role Phone Unavailable Primary Care Provider Unavailabl e Encounter Details Date Type Department Care Team (Late st Contact Info) Description 11/25/2018 Transcribed Document [facility] Family Medicine [address] [place] [address] ProviderBonnie MD [address] [place] [address] Social History Tobacco Use Types Packs/Day Years Used Date Smoking Tobacco: Never Assessed Comments Unknown Sex and Gender Information Value Date Recorded Sex Assigned at Not on file Legal Sex Female 6:06 PM CDT Gender Identity Not on file Sexual Orientation Not on file documented as of this encounter Miscellaneous Notes * Cerner Conversion Note - Historical ProviderMD - 11/25/2018 10:57 PM CLOTHES IRONER Admission History, Adult Entered On: 11/26/2018 10:49 EST Performed On: 11/25/2018 22:57 EST by MADYSON TEAGUE RN Advance Directive Patient has Advance Directive *Q : No, patient refuses Advance Directive information MADYSON TEAGUE RN - 11/26/2018 10:45 EST Anesthesia/Transfusion History Family History of Anesthesia Reaction : Prior transfusion without reaction Blood Transfusion Acceptable to Patient : Yes Transfusion History : Prior anesthesia without reaction Family History of Anesthesia Reaction : None MADYSON TEAGUE RN - 11/26/2018 10:45 EST Anticipated Discharge Needs Discharge To, Anticipated : Home Anticipated Discharge Needs at This Time : Outpatient follow-up MADYSON TEAGUE RN - 11/26/2018 10:45 EST Education Topics, Admission Orientation DCP GENERIC CODE Assessment/Vital Signs : Verbalizes understanding Bed Control : Verbalizes understanding Call Light : Verbalizes understanding Confidentiality : Verbalizes understanding Diet/Room Service : Verbalizes understanding Orientation to Room/Bathroom : Verbalizes understanding Siderails use/risks : Verbalizes understanding Telemetry Monitoring : Verbalizes understanding Television/Phone : Verbalizes understanding MADYSON TEAGUE RN - 11/26/2018 10:45 EST Functional Assessment Living Situation : Home Patient Lives With : Child/Children, Parent(s), Spouse Persons Assisting Patient at Home : Alone Current Daily Living Assistance : None Sensory Deficits : None Mobility Assistance Prior to Admission : Independent MONGE Hx Falls Immediate/Within 3 Months : Yes Current Home Treatments : None MADYSON TEAGUE RN - 11/26/2018 10:45 EST General Info Mode of Arrival on [...] : Patient, Medical Record Primary Language : Moroccan Preferred Communication Mode : Verbal Communication Barrier : Medical condition MADYSON TEAGUE RN - 11/26/2018 10:45 EST Fall Risk Scales ABCs Fall Injury Risk Identification : None Injury Moderate to High Risk Interventions : Transport methods appropriate to patient MONGE Hx Falls Immediate/Within 3 Months : Yes Monge Secondary Diagnosis : No MONGE Use of Ambulatory Aid : None MONGE IV Therapy or IV Access : Yes Monge Gait/Transferring : Weak Monge Mental Status : Oriented to own ability Monge Fall Risk Score : 55 MONGE Fall Scale Risk Level : 46 or > High Risk Pearce Fall Interventions : Adequate lighting, Assistive devices within reach, Bed in low position, Call device within reach, Frequent orientation to call device, Frequent orientation to surroundings, Hourly comfort/safety rounds, Non-slip footwear, Personal items within reach, Reinforced to call for assistance before getting out of bed, Room free of clutter/spills, Upper side-rails up, Wheels locked, Wires/Cords secured Fall Moderate to High Risk Interventions : Transport methods appropriate to patient Fall Risk Scale Calc Temp : 0 MADYSON TEAGUE RN - 11/26/2018 10:45 EST Health Histories Smoking Status : Never (less than 100 in lifetime; none in last 30 days) Smokeless Tobacco Status : Never MADYSON TEAGUE RN - 11/26/2018 10:45 EST Social History (As Of: 11/26/2018 10:49:56 EST) Tobacco: Smoking Status Never smoker. (Last [...] Source : Estimated Height Entry Format : [place] Height, Feet : 5 ft(Converted to: 152 cm, 60 Inch) Height, Inches : 5 Inch(Converted to: 0 ft 5 Inch, 12.70 cm) Clinical Height : 165.1 cm Weight Source : Standing scale Weight Entry Format : [place] Clinical Dosing Weight : 100 kg Weight, Pounds : 220 lb Body Surface Area (BSA) : 2.06 m2 Body Mass Index : 36.7 kg/m2 (HI) [place] Body Weight : 57 kg MADYSON TEAGUE RN - 11/26/2018 10:45 EST Infectious Disease History Infectious Disease History : Chicken pox/Shingles, Hepatitis A, MRSA Isolation Needed : Standard Fever/Chills Last 48 Hours : No Travel To Regions with Travel Advisories : No Travel Outside [place] Within Last 30 Days : No Contact With Traveler to Advisory Region : No Tuberculosis Symptoms : None MADYSON TEAGUE RN - 11/26/2018 10:45 EST Tetanus Immunization Status Previous Tetanus Immunizations : No qualifying data available. Tetanus Immunization : Unknown MADYSON TEAGUE RN - 11/26/2018 10:45 EST Influenza Vaccine Asmt, Adult Previous Vaccines from Immunization Schedule : No qualifying data available. Influenza Immunization, Current Season : No Inactivated Flu Vaccine Contraindications : No contraindications to inactivated influenza vaccine Transplant Workup/Recent Transplant : No Order for Influenza Vaccine : Declined Vaccination MADYSON TEAGUE RN - 11/26/2018 10:45 EST Pneumococcal Vaccine Previous Vaccines from Immunization Schedule : No qualifying data available. Pneumonia Immunization Received : No Pneumococcal Risk Assessment < Age 65 : Immunocompromising condition (e.g., HIV, congenital immunodeficiency, hematologic and solid tumors) Pneumococcal Vaccine Contraindications : No contraindications to pneumococcal vaccine Transplant Workup/Recent Transplant : No Order for Pneumococcal Vaccine : Declined Vaccination MADYSON TEAGUE RN - 11/26/2018 10:45 EST Order Details Isolation Precautions Order Detail : Standard Precautions Order Detail : 0 IV Order Detail : 1 Oxygen Order Detail : 0 Nurse Collect Order Detail : 0 Lift/Transfer : Moderate assist Central Line Order Detail : No Room Service : Appropriate Arterial Line : No MADYSON TEAGUE RN - 11/26/2018 10:45 EST Nutrition History Feeding Ability : Independent Adaptive Feeding Equipment : Regular Eating Poorly Due to Decreased Appetite : Yes Unplanned Weight Loss in Past 3-6 Months : No Malnutrition Screening Tool Total(mal) : 1 Malnutrition Screening Tool Risk Level : Patient not at risk MADYSON TEAGUE RN - 11/26/2018 10:45 EST Psychosocial History Does Someone Depend on You for Care? : Yes Have Arrangements been Made? : Yes Do You Have a History of the Following? : Patient denies history Currently in Unsafe Situation : No Tried to Harm Yourself in the Past? : No Thoughts of Harming/Killing Yourself : No MADYSON TEAGUE RN - 11/26/2018 10:45 EST Sleep Apnea Risk Assmt Hx of [...] Circumference Greater Than 40 cm : No MADYSON TEAGUE RN - 11/26/2018 10:45 EST Spiritual/Cultural Needs Any Spiritual/Cultural Needs or Requests : No Pentecostal Preference : No listed preference MADYSON TEAGUE RN - 11/26/2018 10:45 EST Valuables and Belongings Valuables and Belongings : Clothing, Jewelry, Personal devices, Personal items Clothing : Common streetwear Clothing Disposition : Bedside Personal Device Disposition : With patient Jewelry : Other: nose ring Jewelry Disposition : With patient Personal Devices : Contact lenses Personal Items : Cell phone, Credit cards, Wallet Personal Items Disposition : With patient MADYSON TEAGUE RN - 11/26/2018 10:45 EST documented in this encounter Plan of Treatment Not on file documented as of this encounter Visit Diagnoses Not on filedocumented in this encounter
--- OUTSIDE RECORDS SUMMARY | 2025-06-18 15:12 | XMS_ITS | Encounter Summary ---
Author Organization [employer] ([place], [place], [place], [place]) Address [address] [place] [address] Care Team Providers Care Windows Admin Name Role Phone Unavailable Primary Care Provider Unavailabl e Encounter Details Date Type Department Care Team (Late st Contact Info) Description 11/26/2018 Transcribed Document [facility] [place] Family Medicine [address] [place] [address] ProviderBonnie MD [address] [place] [address] Social History Tobacco Use Types Packs/Day Years Used Date Smoking Tobacco: Never Assessed Comments Unknown Sex and Gender Information Value Date Recorded Sex Assigned at Not on file Legal Sex Female 6:06 PM CDT Gender Identity Not on file Sexual Orientation Not on file documented as of this encounter Miscellaneous Notes * Cerner Conversion Note - Historical ProviderMD - 11/26/2018 2:39 PM CLOTH MENDER Pain Assessment Entered On: 12/01/2018 17:48 EST Performed On: 12/01/2018 7:32 EST by JASSON KEITA RN Intervention Information: oxyCODONE Performed by SUKI OSBORN on 12/01/2018 06:32:00 EST oxyCODONE,10mg Oral,Abdominal Pain Pain Assessment Pain Assessment : Follow-up assessment Pain Scale Goal : 3 Pain Scale Used : 0-10 Scale JASSON KEITA RN - 12/01/2018 17:48 EST Pain Scale Intensity : 3 JASSON KEITA RN - 12/01/2018 17:48 EST Image 4 - Images currently included in the form version of this document have not been included in the text rendition version of the form. documented in this encounter Plan of Treatment Not on file documented as of this encounter Visit Diagnoses Not on filedocumented in this encounter
--- OUTSIDE RECORDS SUMMARY | 2025-06-18 15:12 | XMS_ITS | Encounter Summary ---
Author Organization [employer] ([place], [place], [place], [place]) Address [address] [place] [address] Care Team Providers Care Hospice Music Therapist Name Role Phone Unavailable Primary Care Provider Unavailabl e Encounter Details Date Type Department Care Team (Late st Contact Info) Description 12/04/2018 Transcribed Document [facility] [place] [address] [place] [address] ProviderBonnei MD [address] [place] [address] Social History Tobacco Use Types Packs/Day Years Used Date Smoking Tobacco: Never Assessed Comments Unknown Sex and Gender Information Value Date Recorded Sex Assigned at Not on file Legal Sex Female 6:06 PM CDT Gender Identity Not on file Sexual Orientation Not on file documented as of this encounter Miscellaneous Notes * Cerner Conversion Note - Historical ProviderMD - 12/04/2018 4:17 PM SENIOR SQL SERVER DEVELOPER Care Management Assessment/Plan Entered On: 12/04/2018 16:18 EST Performed On: 12/04/2018 16:17 EST by Lexy Lewis RN Care Management Note Care Management Note Report : Lexy Lewis RN - 12/03/18 16:48:18 Clinical updates: alb-2.4/alk phos-187/AST-389/ALT-672/INR-1.2. Pt wanting to try solid foods--diet advaned to soft GI. Pt has been up ambulating by self in room. Likely dc in 1-2 days if continued improvement. Lexy Lewis RN - 11/30/18 18:05:26 Pt [...] Complete : Yes Lexy Lewis RN - 12/04/2018 16:17 EST Discharge Planning Details Discharge Home : Home with family Lexy Lewis RN - 12/04/2018 16:17 EST Final Discharge Disposition Note-CM Final Discharge Disposition Note-CM : Ptready for dc home today. AST-303/ALT-523/INR-1.2. Pt will f/u with PCP in 1 week. No CM needs identified. Discharge To Care Management : Home/Residential/[facility] or Self Care -01 Lexy Lewis RN - 12/04/2018 16:17 EST Electronically signed by Neftaly, [facility] Conversion Foley Artist Cerner at 02/21/2023 8:02 PM CDT documented in this encounter Plan of Treatment Not on file documented as of this encounter Visit Diagnoses Not on filedocumented in this encounter
--- OUTSIDE RECORDS SUMMARY | 2025-06-18 15:12 | XMS_ITS | Encounter Summary ---
Author Organization [employer] ([place], [place], [place], [place]) Address [address] [place] [address] Care Team Providers Care Chocolate Finisher Operator Name Role Phone Unavailable Primary Care Provider Unavailabl e Encounter Details Date Type Department Care Team (Late st Contact Info) Description 12/05/2018 Transcribed Document [facility] [place] [address] [place] [address] ProviderBonnie MD [address] [place] [address] Social History Tobacco Use Types Packs/Day Years Used Date Smoking Tobacco: Never Assessed Comments Unknown Sex and Gender Information Value Date Recorded Sex Assigned at Not on file Legal Sex Female 6:06 PM CDT Gender Identity Not on file Sexual Orientation Not on file documented as of this encounter Miscellaneous Notes * Cerner Conversion Note - Historical ProviderMD - 12/05/2018 11:06 AM FAN RUNNER Post Visit Phone Call Entered On: 12/05/2018 11:07 EST Performed On: 12/05/2018 11:06 EST by CHINEDU RUGGIERO, RN Post Visit Phone Call Post Visit Phone Call History : First call, Left message CHINEDU RUGGIERO RN - 12/05/2018 11:06 EST Electronically signed by Ceasar Higginbotham Conversion Name Plate Stamping Machine Operator Cerner at 02/21/2023 8:01 PM CDT documented in this encounter Plan of Treatment Not on file documented as of this encounter Visit Diagnoses Not on filedocumented in this encounter
--- OUTSIDE RECORDS SUMMARY | 2025-06-18 15:12 | XMS_ITS | Encounter Summary ---
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 Name Role Phone Unavailable Primary Care Provider Unavailabl e Encounter Details Date Type Department Care Team (Late st Contact Info) Description 11/26/2018 Transcribed Document [facility] [place] [facility] [place] [address] ProviderBonnie MD [address] [place] [address] Social History Tobacco Use Types Packs/Day Years Used Date Smoking Tobacco: Never Assessed Comments Unknown Sex and Gender Information Value Date Recorded Sex Assigned at Not on file Legal Sex Female 6:06 PM CDT Gender Identity Not on file Sexual Orientation Not on file documented as of this encounter Miscellaneous Notes * Cerner Conversion Note - Bonnie ProviderMD - 11/26/2018 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 History of Present Illness Patient is a 38-year-old female with a negative cardiovascular PMH who presented to [facility] with complaints of worsening abdominal pain nausea and vomiting over the past several days. She reports intermittent chest pain with occasional dizziness and a syncopal episode at work. Upon evaluation at [facility] patient was found to have elevated LFTs and confirmed hepatitis A. Reportedly, patient had an abnormal echocardiogram although she did not have a report. She denies a history of cardiovascular issues. She reports her mother has history of CHF. She denies palpitations or edema. Currently, patient is in the emergency room being transferred to telemetry, no acute distress chest pain-free. Review of Systems Constitutional: Negative except as documented in history of present illness. Eye: Negative except as documented in history of present illness. Ear/Nose/Mouth/Throat: Negative except as documented in history of present illness. Respiratory: Negative except as documented in history of present illness. Cardiovascular: Negative except as documented in history of present illness. Gastrointestinal: Negative except as documented in history of present illness. Genitourinary: Negative except as documented in history of present illness. Hematology/Lymphatics: Negative except as documented in history of present illness. Endocrine: Negative except as documented in history of present illness. Immunologic: Negative except as documented in history of present illness. Musculoskeletal: Negative except as documented in history of present illness. Integumentary: Negative except as documented in history of present illness. Neurologic: Negative except as documented in history of present illness. Psychiatric: Negative except as documented in history of present illness. Health Status Allergies (2) Active Reaction Ceclor None Documented penicillin seizure Home Medications (2) Active promethazine 12.5 mg oral tablet 12.5 mg = 1 Tab, PRN, Oral, Q4H Zofran 4 mg oral tablet 4 mg = 1 Tab, Oral, Q4H Allergies: Allergic Reactions (Selected) Severity Not Documented [...] mg, 150 mL, 100 mL/Hr, IV Piggyback, [id number] NaCl 0.9% bolus: 1,000 mL, 1,000 mL/Hr, [...] 7-10) pneumococcal 23-polyvalent vaccine: 0.5 mL, IntraMuscular, [id number] Documented Medications Documented Zofran 4 mg oral tablet: 1 Tab, Oral, Q4H, 0 Refill(s) promethazine 12.5 mg oral tablet: 1 Tab, Oral, Q4H, PRN: as needed for nausea/vomiting, 60 Tab, 0 Refill(s), Medications (16) Active Scheduled: (8) acetylcysteine 600 mg cap 1,200 mg 2 Cap, Oral, BID famotidine 20 mg tab 20 mg 1 Tab, Oral, Daily heparin 5,000 units/1 mL inj 5,000 Units 1 mL, SubCutaneous, Q8H lactulose 20 g/30 mL oral liq 20 Gram 30 mL, Oral, Q8H levofloxacin/D5w *PREMIX* 750 mg 150 mL, IV Piggyback, V84RPag metroNIDAZOLE 500 mg 100 mL, IV Piggyback, Q6H NaCl 0.9% 1,000 mL, IV Piggyback, 1-Time pneumococcal 23-wayne vacc inj 0.5 mL 0.5 mL, IntraMuscular, [id number] Continuous: (1) Dextrose 5% NaCl 0.9% 1,000 [...] mg 0.25 mL, IntraVENous, Q6H Problem list: All Problems Abnormal vaginal bleeding / SNOMED CT 010478920 / Confirmed heavy Anemia / SNOMED CT 602551379 / Confirmed Dyspareunia in female / SNOMED CT 553865703 / Confirmed Endometriosis / SNOMED CT 670070315 / Confirmed Metrorrhagia / SNOMED CT 094256362 / Confirmed, Active Problems (5) Abnormal vaginal bleeding Anemia Dyspareunia in female Endometriosis Metrorrhagia Histories No education data available. Social & Psychosocial Habits Alcohol 10/18/2017 Alcohol Use History, Social Habits No 10/24/2017 Alcohol Use History, Social Habits Yes Alcohol Use Frequency Rarely Employment/School 10/18/2017 Status: Unemployed Home/Environment 10/18/2017 Lives with: Children Substance Abuse 10/24/2017 Recreational Drug Use History No Tobacco 10/18/2017 Smoking Status Never smoker 10/24/2017 Smoking Status Never smoker Past Medical History: Active Endometriosis (768818883) Family History: CHF-mother Procedure history: Gastric bypass (4995080436).\.br&T.brdiagnostic lap x6. Comments: 10/18/2017 15:36 - MARQUITA GIBBS, ZHANG for endometriosis LEEP (22531186). tubal ligation. appy. x2. Social History Social & Psychosocial Habits Alcohol 10/18/2017 Alcohol Use History, Social Habits No 10/24/2017 Alcohol Use History, Social Habits Yes Alcohol Use Frequency Rarely Employment/School 10/18/2017 Status: Unemployed Home/Environment 10/18/2017 Lives with: Children Substance Abuse 10/24/2017 Recreational Drug Use History No Tobacco 10/18/2017 Smoking Status Never smoker 10/24/2017 Smoking Status Never smoker . Physical Examination VS/Measurements Vitals Signs (last 24 hrs) Last Charted Minimum Maximum Temp 98.6 (NOV 26 08:29) 98.6 (NOV 26 08:29) 99.0 (NOV 25 18:35) Mon HR 70 (NOV 26 09:30) 60 (NOV 26 06:30) 118 (NOV 25 22:30) Periph HR 91 (NOV 25 18:35) 91 (NOV 25 18:35) 91 (NOV 25 18:35) Resp Rate 20 (NOV 26 09:30) 15 (NOV 26 08:29) H 22 (NOV 25:30) SBP 126 (NOV 26:30) 98 (NOV 26 06:00) 139 (NOV 26 00:30) DBP 74 (NOV 26:30) L 56 (NOV 26 06:00) 84 (NOV 26 04:00) MAP 97 (NOV 26:30) 75 (NOV 26 06:00) 109 (NOV 26 00:00) SpO2 97 (NOV 26:30) 96 (NOV 26 04:30) 100 (NOV 25:00) General: Alert and oriented, No acute distress. Eye: Pupils are equal, round and reactive to light. HENT: Normocephalic. Neck: Supple, Non-tender, No carotid bruit, No jugular venous distention. Respiratory: Lungs are clear to auscultation, Respirations are non-labored, Breath sounds are equal, Symmetrical chest wall expansion. Cardiovascular: Normal rate, Regular rhythm, No murmur, No gallop, Good pulses equal in all extremities. Gastrointestinal: Soft, Non-tender, Non-distended, Normal bowel sounds. Musculoskeletal: Normal range of motion, Normal strength. Integumentary: Warm, Dry, [place]. Neurologic: Alert, Oriented. Psychiatric: Cooperative, Appropriate mood & affect. Review / Management NOV 26 03:12 140 108 L 5 / 82 4.3 26 L 0.50 \ NOV 26 03:12 \ L 10.0 / L 2.4 216 / L 34.0 \ Cardiac Markers (Current Encounter/Past 24 Hours) No Cardiac Marker Results Found (Past 24 Hours) Blood Gases (Current Encounter/Past 24 Hours) No Blood Gas Results Found (Past 24 Hours) Radiology Results (Last 48 hours) [id number] -- 11/25/2018 22:24 CR Chest 1 Vw Portable (11/25/2018 19:58) Result: PORTABLE CHEST 11/25/2018 7:00 PM HISTORY: Syncope.COMPARISON: None.FINDINGS: The heart is normal in size . The mediastinum isunremarkable . The lungs are clear . There is no pneumothorax . Theosseous structures are unremarkable . IMPRESSION: No acute cardiopulmonary process .Images reviewed, interpreted, and dictated by Dr. Bertin Alfredo.Transcribed by Naun Marlow PA-C.Norma have personally viewed, interpreted and dictated the [...] agree with the above final transcribed report. Results review: Labs (Last four charted values) WBC L [...] Troponin <0.015 (NOV 25) <0.015 (NOV 25) . Impression and Plan IMPRESSION: * Atypical Chest Pain in setting of N/V, dizziness and islolated syncopal episode - EKG: Sinus Tach - Troponin negative * ? Abnormal Echo - obtaining copy from OSH * Hepatitis A - AST 1800, ALT 1300, alkaline phosphatase 153 * Cholelithiasis * Anemia - Hgb 10 PLAN; Obtaining copy of Echo from [facility]. Anemia per primary service. documented in this encounter Plan of Treatment Not on file documented as of this encounter Visit Diagnoses Not on filedocumented in this encounter
--- OUTSIDE RECORDS SUMMARY | 2025-06-18 15:12 | XMS_ITS | Encounter Summary ---
Author Organization [employer] ([place], [place], [place], [place]) Address [address] [place] [address] Care Team Providers Care City Collector Name Role Phone Unavailable Primary Care Provider Unavailabl e Encounter Details Date Type Department Care Team (Late st Contact Info) Description 11/26/2018 Transcribed Document [facility] [place] [address] [place] [address] ProviderBonnie MD [address] [place] [address] Social History Tobacco Use Types Packs/Day Years Used Date Smoking Tobacco: Never Assessed Comments Unknown Sex and Gender Information Value Date Recorded Sex Assigned at Not on file Legal Sex Female 6:06 PM CDT Gender Identity Not on file Sexual Orientation Not on file documented as of this encounter Miscellaneous Notes * Cerner Conversion Note - Historical ProviderMD - 11/26/2018 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 [address] [place] [address] PERSON INFORMATION Name JULIÁN PARR Age 38 Years 1980 Sex Female Language Spanish PCP Marital Status Single Med Service Internal Medicine Acct# Arrival 11/25/2018 18:20:00 Visit Reason Altered mental status; DEHYDRATION Acuity 3 - Urgent LOS 000 16:01 Depart Date: 00:00 AM Address: [address] [address] Comment: PROVIDER INFORMATION Provider Role Assigned Unassigned JENNY VALVERDE APRN ED Physician 11/25/2018 18:54:10 11/25/2018 23:36:17 YESI UNGER, DIE FORGER Nurse 11/25/2018 18:56:38 11/26/2018 02:37:30 Sandra Rubio, DIE FORGER Nurse 11/25/2018 19:21:26 11/26/2018 09:04:00 Pect, E X ED Physician 11/25/2018 23:36:18 Wendy Rodriges, timers inspector Nurse 11/26/2018 02:37:31 Irene Cooper, DIE FORGER Nurse 11/26/2018 09:04:01 DIAGNOSIS PHYS DOC NOTES VITALS INFORMATION Vital Sign Triage Latest Temp Source Oral Oral Temp Mode Fahrenheit Fahrenheit Temp Fahrenheit 99.0 Deg F 98.6 Deg F Temp Celsius 02 Sat 99 % 99 % Respiratory Rate 16 Breaths/Min 21 Breaths/Min Peripheral Pulse Rate 91 bpm 91 bpm Apical Heart Rate Blood Pressure 122 mmHg / 76 mmHg 121 mmHg / 72 mmHg Comment: MEDICAL INFORMATION Allergy Info: Ceclor; penicillin Medications: Home Meds Display ondansetron (Zofran 4 mg oral tablet) 1 Tab, Oral, Tab, Q4H, 0 Refill(s) promethazine (promethazine 12.5 mg oral tablet) 1 Tab, Oral, Tab, Q4H, PRN as needed for nausea/vomiting, # 60 Tab, 0 Refill(s) Comment: DISCHARGE INFORMATION Discharge Disposition: Admitted as Inpatient Discharge Location: PATIENT EDUCATION INFORMATION Instructions: Follow up: Comment: documented in this encounter Plan of Treatment Not on file documented as of this encounter Visit Diagnoses Not on filedocumented in this encounter
--- OUTSIDE RECORDS SUMMARY | 2025-06-18 15:12 | XMS_ITS | Encounter Summary ---
Author Organization [employer] ([place], [place], [place], [place]) Address [address] [place] [address] Care Team Providers Care Marketing Sales Manager Name Role Phone Unavailable Primary Care Provider Unavailabl e Encounter Details Date Type Department Care Team (Late st Contact Info) Description 12/06/2018 Transcribed Document [facility] [place] [address] [place] [address] ProviderBonnie MD [address] [place] [address] Social History Tobacco Use Types Packs/Day Years Used Date Smoking Tobacco: Never Assessed Comments Unknown Sex and Gender Information Value Date Recorded Sex Assigned at Not on file Legal Sex Female 6:06 PM CDT Gender Identity Not on file Sexual Orientation Not on file documented as of this encounter Miscellaneous Notes * Cerner Conversion Note - Historical ProviderMD - 12/06/2018 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
--- OUTSIDE RECORDS SUMMARY | 2025-06-18 15:12 | XMS_ITS | Referral Summary ---
Author Organization [employer] ([place], [place], [place], [place]) Address [address] [place] [address] Care Team Providers Care Cigarette Catcher Name Role Phone Unavailable Primary Care Provider [...]
--- OUTSIDE RECORDS SUMMARY | 2025-06-18 15:13 | XMS_ITS | Clinical Summary ---
Author Organization [facility] Address [address] [facility] [address] [place] [address] Care Team Providers Care Packager Or Packer And Weigher Name Role Phone Az Mills MD Primary Care Provider [phone] Allergies Active Allergy Reactions Criticality Noted Date Comments Amlodipine Swelling High 03/07/2022 Cefaclor Hives High 04/12/2020 Other reaction(s): Unknown Cephalosporins Low 03/07/2022 Other reaction(s): Unknown Penicillins Shortness of breath High 04/12/2020 Other reaction(s): Unknown Trazodone Hallucinations Medium 10/14/2022 Medications esomeprazole (NexIUM) [address] capsule Take 1 capsule (40 mg total) by mouth 2 (two) times a day. Do not open capsule. 60 capsule 11 08/15/2023 Active pyridostigmine (Mestinon) 60 MG tablet Take 1 tablet (60 mg total) by mouth 3 (three) times a day. 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 01/09/2023 05/16/2023 H/O: GIT by-pass 01/09/2023 05/16/2023 Iron deficiency 01/09/2023 05/16/2023 Multiple joint pain 01/09/2023 05/16/2023 Hypertension 03/20/2022 05/16/2023 Family History Medical History Relation Name Comments Autoimmune disease Father Hypertension Father Hypertension Mother Relation Name Status Comments Father Mother Social History Tobacco Use Types Packs/Day Years Used Date Smoking Tobacco: Never Smokeless Tobacco: Never Tobacco Cessation:Counseling Given: Not Answered Alcohol Use Standard Drinks/Week Comments Never 0 (1 standard drink = 0.6 oz pur e alcohol) Comments Unknown Sex and Gender Information Value Date Recorded Sex Assigned at Not on file Legal Sex Female 12:28 PM EST Gender Identity Not on file Sexual Orientation Not on file Plan of Treatment Health Maintenance Due Date Last Done Comments HIV Screening 1980 Hepatitis C Screening 1980 MMR Vaccines (1 of 1 - Standard series) 1983 Varicella Vaccines (1 of 2 - 13+ 2-dose series) 1995 Hepatitis B Screening 2000 DTaP/Tdap/Td Vaccines (1 - Tdap) 2001 Hepatitis B Vaccines (1 of 3 - 19+ 3-dose series) 2001 Mammogram 2022 Diabetes Screening 01/10/2024 01/09/2023, 0 01/09/2023, 06/19/2020, Additional history exists COVID-19 Vaccine ( season) 2024 02/25/2021, 01/28/2021 Depression Risk Screening 11/06/2024 SDOH Screening 11/06/2024 Influenza Vaccine (#1) 2025 , 09/15/2021, 09/25/2020, Additional history exists Lipid Panel 01/10/2028 01/09/2023 Zoster Vaccines (1 of 2) 2032 HIB Vaccines Aged Out No longer eligi ble based on patient's age to complete this topic HPV Vaccines Aged Out No longer eligi ble based on patient's age to complete this topic Hepatitis A Vaccines Aged Out No long er eligible based on patient's age to complete this topic IPV Vaccines Aged Out No longer eligi ble based on patient's age to complete this topic Meningococcal B Vaccine Aged Out No l onger eligible based on patient's age to complete this topic Meningococcal Vaccine Aged Out No darvin araceli eligible based on patient's age to complete this topic Pneumococcal Vaccine Aged Out No long er eligible based on patient's age to complete this topic Rotavirus Vaccines Aged Out No longer eligible based on patient's age to complete this topic Insurance [facility] Care Teams Packager Or Packer And Weigher Relationship Specialty Start Date End Date Az Mills MD [address] Attn: Lee Resendiz [place] [id number] PCP - General Family Medicine 01/18/23
--- OUTSIDE RECORDS SUMMARY | 2025-06-18 15:13 | XMS_ITS | Encounter Summary ---
Author Organization [employer] ([place], [place], [place], [place]) Address [address] [place] [address] Care Team Providers Care Labor Arbitrator Hearing Office Name Role Phone Unavailable Primary Care Provider Unavailabl e Encounter Details Date Type Department Care Team (Late st Contact Info) Description 11/28/2018 Transcribed Document [facility] [place] Medicine [address] [place] [address] ProviderBonnie MD [address] [place] [address] Social History Tobacco Use Types Packs/Day Years Used Date Smoking Tobacco: Never Assessed Comments Unknown Sex and Gender Information Value Date Recorded Sex Assigned at Not on file Legal Sex Female 6:06 PM CDT Gender Identity Not on file Sexual Orientation Not on file documented as of this encounter Miscellaneous Notes * Cerner Conversion Note - Historical ProviderMD - 11/28/2018 5:23 PM OPERATING ROOM REGISTERED NURSE Patient: JULIÁN PARR Age: 38 Years Sex: Female : 1980 Chief Complaint Patient awake, but in a catatonic state, not responding to family, started last night but came out of it to talk with boyfriend. Informant is , but they are getting . No hx of this state, no psych hx Subjective Patient seen earlier this admission for acute hepatitis A, and supportive care recommended, now reconsult for worsening LFTs and INR. The patient tested negative for hepatitis B and C and states she has never been told she has any viral disease of the liver but has been told that she had fatty liver in the past. She underwent Bob-en-Y gastric bypass in 2010. At that time she had a high weight of 392 pounds, dropped to 184 pounds but has regained to 210 pounds. She states she has not been following with a bariatrician since moving here from [place] approximately 2 years ago. She no longer takes protein supplements nor her vitamins. On admission she was started on lactulose for some mental status changes but she refused that today as she had [address] Wei treated her with 2 days of acetylcysteine and the patient states she is feeling no better with continued right upper quadrant pain, no appetite, ongoing nausea and that she's vomited a small amount 7 or 8 times today. She has been nothing by mouth other than sips of water since admission on 11/25/2018, according to the patient. She has a copy of her labs on discharge from [facility] on 11/22/2018 that showed a total protein of 5.2, albumen 2.4, total bilirubin 0.4, AST 259, ALT 224, and alkaline phosphatase 82. There is no PT or INR listed. On admission here 11/25/2018 she had a total bilirubin of 0.6, direct bilirubin 0.3, alkaline phosphatase 173, AST 1923, ALT 1430, platelets 235. On 11/26/2018 she had a PT of 12.3 with an INR of 1.1. Today she has a total bilirubin of 2.0, alkaline phosphatase 195, AST 2793, ALT 2285, PT 15.2, INR 1.4. Review of Systems () Physical Exam (11/11/11) location, quality, severity, duration, timing, context, modifeirs, associated signs/symptoms GENERAL: Morbidly obese pleasant 38-year-old female, no acute distress, alert and oriented ??3. Resting comfortably while watching television. HEENT: No scleral icterus, oral mucosa moist, no drainage from nares or ears NECK; supple, nontender, no lymphadenopathy CARDIAC--RRR, no JVD, no LE edema LUNGS: CTA, with BS = B, ABDOMEN: Obese , no abnormal movements or pulsations, normal BS x 4 quadrants, soft, moderate right upper quadrant tenderness without mass or rebound SKIN: warm, dry, no jaundice NEURO: grossly intact, speech clear,follows instructions, moves 4 extremities equally PSYCH: appropriate affect, cooperative MS: 4 extremities intact, joints without erythema or edema, nontender : deferred Vitals & Measurements T: 36.9 ??C HR: 80 (Monitored) RR: 18 BP: 106/56 MAP: 68 SpO2: 98% Assessment/Plan () N+W/U = 4; New = 3; Worsen = 2; Stable = 1; Improved = 1; Self-limited = 1 Altered mental state Altered mental status Dehydration, Dehydration, Dehydration Hepatitis A Orders: phytonadione, 10 mg 1 mL, IV Piggyback, Daily, Administer over 15 Minute(s), order duration: 3 Day(s), Routine, Start 11/28/18 9:00:00 EST, Stop 12/01/18 8:59:00 EST, 200 mL/Hr AFP, Tumor Marker, Sendout Cytomegalovirus Ab, IgG and IgM, Sendout Jacqueline Hernandez Virus Ab Panel, Sendout MRI MRCP WO Acute hepatitis A, screening for hepatitis B and C nonreactive Severe nausea and vomiting Worsening liver serology Worsening synthetic function Question of encephalopathy on admission, seemingly resolved now History of gastric bypass and now with malnutrition Morbid obesity with fatty liver disease Gallbladder sludge Patient needs nutrition and with her severe nausea may not be able to tolerate by mouth intake or tube feeds and TPN may need to be considered. I ordered an MRCP to evaluate for biliary obstruction. She Should continue as nothing by mouth at this point in case Dr. Wei wants to do endoscopic evaluation tomorrow. Please watch for any additional recommendations or orders by Dr. Wei. There is no indication that she has chronic hepatitis B or C which would certainly increase her risk of fulminant liver failure in the face of acute hepatitis A. I will check for cytomegalovirus and Jacqueline-Hernandez virus and HIV coinfection. I added vitamin K to be given daily for each of the next 3 days to see if her synthetic function improves. If she continues to worsen she may need transfer to a facility such as the [facility] or [facility] with capabilities to evaluate for liver transplant in the event of fulminant liver failure. Allergies Ceclor penicillin (seizure) Medications Inpatient Ativan, 0.5 mg, 0.25 mL, IV Push, [...] Levaquin, 750 mg, 150 mL, IV Piggyback, [id number] morphine, 2 mg, 1 mL, IV Push, Q2H, PRN NaCl 0.9% bolus, 1000 mL, IV Piggyback, 1-Time oxyCODONE, 10 mg, 2 Tab, Oral, Q4H, PRN Pepcid, 20 mg, 1 Tab, Oral, Daily promethazine, 12.5 mg, 0.5 mL, IV Push, Q6H, PRN Vitamin K1 Zofran, 4 mg, 2 mL, IV Push, [...] female Endometriosis Metrorrhagia Historical No historical problems Lab Results NOV 27 03:25 \ L 10.2 / L 2.7 201 / L 34.0 \ Blood Gases (Current Encounter/Past 24 Hours) No Blood Gas Results Found (Past 24 Hours) Electrolytes(BMP) Results (Current Encounter/Past 24 Hours) Sodium Level 141 mmol/L 11/28/2018 04:50 Potassium Level 3.4 mmol/L LOW 11/28/2018 04:50 Chloride Level 110 mmol/L 11/28/2018 04:50 Carbon Dioxide Level 26 mmol/L 11/28/2018 04:50 Anion Gap 8 LOW 11/28/2018 04:50 Blood Urea Nitrogen 5 mg/dL LOW 11/28/2018 04:50 Glucose Level 120 mg/dL [place] 11/28/2018 04:50 Calcium Level 7.5 mg/dL LOW 11/28/2018 04:50 Creatinine Level 0.50 mg/dL LOW 11/28/2018 04:50 Cardiac Markers (Current Encounter/Past 24 Hours) No Cardiac Marker Results Found (Past 24 Hours) CBC Results (Current Encounter/Past 24 Hours) WBC 2.7 K/uL LOW 11/27/2018 04:03 Hct 34.0 % LOW 11/27/2018 04:03 Hgb 10.2 g/dL LOW 11/27/2018 04:03 Platelet Count 201 K/uL 11/27/2018 04:03 CMP Results (Current Encounter/Past 24 Hours) eGFR NonAfrican >60 mL/min/1.73m2 11/28/2018 04:50 Bun/Creatinine 10.0 11/28/2018 04:50 eGFR >60 mL/min/1.73m2 11/28/2018 04:50 A/G Ratio 0.9 LOW 11/28/2018 04:50 Protein Total 5.2 Gram/dL LOW 11/28/2018 04:50 Creatinine Level 0.50 mg/dL [facility] 11/28/2018 04:50 Globulin 2.8 Gram/dL 11/28/2018 04:50 Sodium Level 141 mmol/L 11/28/2018 04:50 Potassium Level 3.4 mmol/L [facility] 11/28/2018 04:50 Chloride Level 110 mmol/L 11/28/2018 04:50 Carbon Dioxide Level 26 mmol/L 11/28/2018 04:50 Anion Gap 8 [facility] 11/28/2018 04:50 Alk Phos 195 Units/Liter [place] 11/28/2018 04:50 ALT 2285 Units/Liter [place] 11/28/2018 04:50 AST 2793 Units/Liter [place] 11/28/2018 04:50 Blood Urea Nitrogen 5 mg/dL [facility] 11/28/2018 04:50 Glucose Level 120 mg/dL [place] 11/28/2018 04:50 Albumin Level 2.4 Gram/dL [facility] 11/28/2018 04:50 Bilirubin Total 2.0 mg/dL [place] 11/28/2018 04:50 Calcium Level 7.5 mg/dL [facility] 11/28/2018 04:50 Coagulation Results (Current Encounter/Past 24 Hours) PT 15.2 Second(s) [place] 11/28/2018 04:06 INR 1.4 [place] 11/28/2018 04:06 Creatinine Clearance (Current Encounter/Past 24 Hours) Creatinine Level 0.50 mg/dL LOW 11/28/2018 04:50 Bun/Creatinine 10.0 11/28/2018 04:50 Diagnostic Results Result Type: US Gallbladder Result Date: November 26, 2018 8:27 EST Result Status: Auth (Verified) Result Title/Subject: US Gallbladder Signed By/Author: DEBBIE SOLANO PA on November 26, 2018 8:59 EST Verified By: SHANTAL CORBIN MD-RAD on November 26, 2018 9:02 EST Encounter info: [id number], [facility], Inpatient, 11/25/2018 - * Final Report * Reason For Exam ABDOMINAL PAIN REPORT GALLBLADDER ULTRASOUND. HISTORY: Right upper quadrant pain. PROCEDURE: Ultrasound images of the gallbladder were obtained. FINDINGS: The pancreatic tail is obscured. The liver parenchyma is normal in echogenicity. The gallbladder is well visualized and the wall appears normal. There are echogenic foci within the gallbladder consistent with small stones. There is probable sludge. The common duct is normal. IMPRESSION: Gallstones with probable sludge. Images reviewed, interpreted, and dictated by Dr. Shantal Corbin. Transcribed by Debbie Solano PA-C. I have personally viewed, interpreted and dictated the examination. I have read and agree with the above final transcribed report. Signature Line Final Dictated by: DEBBIE SOLANO PA Dictated DT/TM: 11/26/2018 8:59 am Interpreted and electronically signed by: SHANTAL CORBIN MD-RAD Signed DT/TM: 11/26/2018 9:02 am Transcribed by: RS REPORT This document has an image Electronically signed by Neftaly [facility] Conversion Cloth Seconds Sorter Cerner at 02/21/2023 8:04 PM CDT documented in this encounter Plan of Treatment Not on file documented as of this encounter Visit Diagnoses Not on filedocumented in this encounter
--- OUTSIDE RECORDS SUMMARY | 2025-06-18 15:13 | XMS_ITS | Encounter Summary ---
Author Organization [employer] ([place], [place], [place], [place]) Address [address] [place] [address] Care Team Providers Care Digital Artist Name Role Phone Unavailable Primary Care Provider Unavailabl e Encounter Details Date Type Department Care Team (Late st Contact Info) Description 11/28/[address] [facility] [place] Family Medicine [address] [place] [address] ProviderBonnie MD [address] [place] [address] Social History Tobacco Use Types Packs/Day Years Used Date Smoking Tobacco: Never Assessed Comments Unknown Sex and Gender Information Value Date Recorded Sex Assigned at Not on file Legal Sex Female 6:06 PM CDT Gender Identity Not on file Sexual Orientation Not on file documented as of this encounter Miscellaneous Notes * Cerner Conversion Note - Historical ProviderMD - 11/28/2018 4:35 PM BARREL ENDSHAKER ADJUSTER Care Management Assessment/Plan Entered On: 11/28/2018 16:36 EST Performed On: 11/28/2018 16:35 EST by Lexy Lewis RN Care Management Note Care Management Note : Clinical updates: K-3.4/scr-0.50/Alb-2.4/Bili-2.0/Alk Phos-195/AST-2793/ALT-2285/INR-1.4/. MRCP pending. Met with pt at bedside this am and informed pt of CM role. DCP still unkown at this time. CM will continue to follow. Care Management Note Report : Lexy Lewis RN - 11/27/18 14:56:21 [id number] Documentation Status Complete : Yes Lexy Lewis RN - 11/28/2018 16:35 EST Electronically signed by Neftaly [facility] Conversion Carrier Driver Cerner at 02/21/2023 8:20 PM CDT documented in this encounter Plan of Treatment Not on file documented as of this encounter Visit Diagnoses Not on filedocumented in this encounter
--- OUTSIDE RECORDS SUMMARY | 2025-06-18 15:13 | XMS_ITS | Encounter Summary ---
Author Organization [employer] ([place], [place], [place], [place]) Address [address] [place] [address] Care Team Providers Care Driver License Reviewing Officer Name Role Phone Unavailable Primary Care Provider Unavailabl e Encounter Details Date Type Department Care Team (Late st Contact Info) Description 11/27/2018 Transcribed Document [facility] [place] Family Medicine [address] [place] [address] ProviderBonnie MD [address] [place] [address] Social History Tobacco Use Types Packs/Day Years Used Date Smoking Tobacco: Never Assessed Comments Unknown Sex and Gender Information Value Date Recorded Sex Assigned at Not on file Legal Sex Female 6:06 PM CDT Gender Identity Not on file Sexual Orientation Not on file documented as of this encounter Miscellaneous Notes * Cerner Conversion Note - Historical ProviderMD - 11/27/2018 5:00 PM AUTO ACCESSORIES INSTALLER Chart Check - Review Order Profile Entered On: 11/27/2018 18:15 EST Performed On: 11/27/2018 17:00 EST by MADYSON TEAGUE RN Chart Check Chart Reviewed Date and Time : 11/27/2018 18:15 EST Powerplans Initiated/Discontinued as Appropriate : Yes All Active Orders Reviewed : Yes MADYSON TEAGUE RN - 11/27/2018 18:15 EST Electronically signed by Neftaly [facility] Conversion Behavior Interventionist Cerner at 02/21/2023 8:16 PM CDT documented in this encounter Plan of Treatment Not on file documented as of this encounter Visit Diagnoses Not on filedocumented in this encounter
--- OUTSIDE RECORDS SUMMARY | 2025-06-18 15:13 | XMS_ITS | Encounter Summary ---
Author Organization [employer] ([place], [place], [place], [place]) Address [address] [place] [address] Care Team Providers Care Manager Android Name Role Phone Unavailable Primary Care Provider Unavailabl e Encounter Details Date Type Department Care Team (Late st Contact Info) Description 11/27/2018 Transcribed Document [facility] [place] Family Medicine [address] [place] [address] ProviderBonnie MD [address] [place] [address] Social History Tobacco Use Types Packs/Day Years Used Date Smoking Tobacco: Never Assessed Comments Unknown Sex and Gender Information Value Date Recorded Sex Assigned at Not on file Legal Sex Female 6:06 PM CDT Gender Identity Not on file Sexual Orientation Not on file documented as of this encounter Miscellaneous Notes * Cerner Conversion Note - Historical ProviderMD - 11/27/2018 2:00 AM INDUSTRIAL PHOTOGRAPHER Manifold Builder Details Entered On: 11/27/2018 3:43 EST Performed On: 11/27/2018 2:00 EST by CARMINA COBIAN LPN Order Details Transport Mode Order Detail : Ambulatory Isolation Precautions Order Detail : Contact precautions, Standard Precautions Order Detail : 0 IV Order Detail : 1 Oxygen Order Detail : 0 Nurse Collect Order Detail : 0 Lift/Transfer : Moderate assist Central Line Order Detail : No Room Service : Appropriate Arterial Line : No CARMINA COBIAN LPN - 11/27/2018 3:42 EST Electronically signed by Ceasar Higginbotham Conversion Food Safety Field Specialist Cerner at 02/21/2023 8:10 PM CDT documented in this encounter Plan of Treatment Not on file documented as of this encounter Visit Diagnoses Not on filedocumented in this encounter
--- OUTSIDE RECORDS SUMMARY | 2025-06-18 15:13 | XMS_ITS | Encounter Summary ---
Author Organization [employer] ([place], [place], [place], [place]) Address [address] [place] [address] Care Team Providers Care Laborer Pipelines Name Role Phone Unavailable Primary Care Provider Unavailabl e Encounter Details Date Type Department Care Team (Late st Contact Info) Description 11/30/2018 Transcribed Document [facility] [place] Family Medicine [address] [place] [address] ProviderBonnie MD [address] [place] [address] Social History Tobacco Use Types Packs/Day Years Used Date Smoking Tobacco: Never Assessed Comments Unknown Sex and Gender Information Value Date Recorded Sex Assigned at Not on file Legal Sex Female 6:06 PM CDT Gender Identity Not on file Sexual Orientation Not on file documented as of this encounter Miscellaneous Notes * Cerner Conversion Note - Bonnie ProviderMD - 11/30/2018 3:24 PM INFORMATICS MANAGER Patient: JULIÁN PARR Age: 38 years Sex: Female : 1980 Associated Diagnoses: None Author: LINDA JAQUEZ II, MD-INT Subjective still with nausea, and abd pain persists. emesis this am when she tried po urine darker Review of Systems Constitutional: [No [...] mg, 150 mL, 100 mL/Hr, IV Piggyback, [id number] NaCl 0.9% bolus: 1,000 mL, 1,000 mL/Hr, IV Piggyback, 1-Time NaCl 0.9% bolus: 1,000 mL, 1,000 mL/Hr, IV Piggyback, 1-Time Pepcid: 20 mg, Oral, Daily Vitamin K1: 10 mg, 1 mL, 200 mL/Hr, IV Piggyback, Daily Zofran: 4 mg, IV Push, Q4H, PRN: Nausea acetylcysteine 600 mg oral capsule: 1,200 mg, 2 Cap, Oral, BID cloNIDine: 0.1 mg, Oral, Q4H, PRN: Hypertension ergocalciferol: 50,000 Units, Oral, Weekly heparin: 5,000 Units, SubCutaneous, Q8H hydrALAZINE: 10 mg, IV Push, Q6H, PRN: Hypertension lactulose: 20 Gram, Oral, Q8H morphine: 2 mg, IV Push, Q2H, PRN: Pain (Severe 7-10) oxyCODONE: 10 mg, Oral, Q4H, PRN: Abdominal Pain promethazine: 12.5 mg, IV Push, Q6H, PRN: Nausea/Vomiting Documented Medications Documented PriLOSEC 20 mg oral [...] 1 Tab, PRN, Oral, Q4H , Medications (19) Active Scheduled: (10) acetylcysteine 600 mg cap 1,200 mg 2 Cap, Oral, BID ergocalciferol 50,000 unit cap 50,000 Units 1 Cap, Oral, Weekly famotidine 20 mg tab 20 mg 1 Tab, Oral, Daily heparin 5,000 units/1 mL inj 5,000 Units 1 mL, SubCutaneous, Q8H lactulose 20 g/30 mL oral liq 20 Gram 30 mL, Oral, Q8H levofloxacin/D5w *PREMIX* 750 mg 150 mL, IV Piggyback, [id number] metroNIDAZOLE 500 mg 100 mL, IV Piggyback, [...] Problem list: Medical Metrorrhagia / SNOMED CT 978784688 / Confirmed Endometriosis / SNOMED CT 132588629 / Confirmed Dyspareunia in female / SNOMED CT 962663738 / Confirmed Anemia / SNOMED CT 787873094 / Confirmed Abnormal vaginal bleeding / SNOMED CT 975783616 / Confirmed heavy, Active Problems (5) Abnormal vaginal bleeding Anemia Dyspareunia in female Endometriosis Metrorrhagia Objective Intake and Output Intake & Output Totals Last 24 Hours (7a-7a) Intake (21 Events) Medications (960.5 mL) Output (2 Events) Medrano Catheter (2900 mL) Input Total: 960.5 mL Output Total: 2900 mL Balance: -1939.5 mL VS/Measurements Vitals Signs (last 24 hrs) Last Charted Minimum Maximum Temp 98.1 (NOV 30:) 98.1 (NOV 30:) H 100.5 (NOV 29 18:16) Mon HR 84 (NOV 30) 76 (NOV 30 03:15) 84 (NOV 30:) Resp Rate 17 (NOV 30) 15 (NOV 29 18:16) 17 (NOV 30:) SBP 103 (NOV 30:) 103 (NOV 30:) 132 (NOV 30 06:00) DBP 64 (NOV 30) 64 (NOV 30:) 72 (NOV 30 06:00) MAP 73 (NOV 30:) 73 (NOV 30:) 86 (NOV 30 06:00) SpO2 97 (NOV 30:) 95 (NOV 30 06:00) 97 (NOV 29 18:16) General: Alert and oriented, Mild distress. Appearance: [...] strength, No tenderness. Integumentary: Warm, Dry, No pallor, icteric. Neurologic: Alert, No focal deficits, Normal deep tendon reflexes. Psychiatric: Cooperative, Appropriate mood & affect. Results Review General results Interpretation: NOV 30 03:25 142 110 L 3 / 91 L 3.4 23 L 0.40 \ Labs (Last four charted values) WBC L 2.7 (NOV 27) L 2.4 (NOV 26) L 2.9 (NOV 25) HB L 10.2 (NOV 27) L 10.0 (NOV 26) 13.0 (NOV 25) HCT L 34.0 (NOV 27) L 34.0 (NOV 26) 43.4 (NOV 25) Plt 201 (NOV 27) 216 (NOV 26) 235 (NOV 25) Na 142 (NOV 30) 142 (NOV 29) 141 (NOV 28) 139 (NOV 27) K L 3.4 (NOV 30) L 3.3 (NOV 29) L 3.4 (NOV 28) 3.7 (NOV 27) Cl 110 (NOV 30) 108 (NOV 29) 110 (NOV 28) 107 (NOV 27) CO2 23 (NOV 30) 28 (NOV 29) 26 (NOV 28) 24 (NOV 27) BUN L 3 (NOV 30) L 4 (NOV 29) L 5 (NOV 28) L 5 (NOV 27) Cr L 0.40 (NOV 30) 0.60 (NOV 29) L 0.50 (NOV 28) L 0.50 (NOV 27) Glu R 91 (NOV 30) H 108 (NOV 29) H 120 (NOV 28) H 116 (NOV 27) Ca L 7.8 (NOV 30) L 7.1 (NOV 29) L 7.5 (NOV 28) L 7.8 (NOV 27) Lactic 0.8 (NOV 26) 1.0 (NOV 25) PT H 14.0 (NOV 30) H 15.9 (NOV 29) H 15.2 (NOV 28) H 12.3 (NOV 26) INR H 1.3 (NOV 30) H 1.5 (NOV 29) H 1.4 (NOV 28) 1.1 (NOV 26) AST H 1227 (NOV 30) H 2080 (NOV 29) H 2793 (NOV 28) H 3202 (NOV 27) ALT H 1495 (NOV 30) H 2147 (NOV 29) H 2285 (NOV 28) H 2209 (NOV 27) ALK P H 173 (NOV 30) H 188 (NOV 29) H 195 (NOV 28) H 223 (NOV 27) T Bili H 3.8 (NOV 30) H 3.1 (NOV 29) H 2.0 (NOV 28) H 1.7 (NOV 27) PTN L 5.1 (NOV 30) L 5.4 (NOV 29) L 5.2 (NOV 28) L 5.6 (NOV 27) ALB L 2.4 (NOV 30) L 2.6 (NOV 29) L 2.4 (NOV 28) L 2.5 (NOV 27) Lipase 102 (NOV 25) Troponin <0.015 (NOV 25) <0.015 (NOV 25) Radiology Results (Last 48 hours) [id number] -- 11/25/2018 22:24 MRI MRCP WO (11/29/2018 09:21) Result: MR ABDOMEN, MRCP PROTOCOLHISTORY: Abdominal pain.TECHNIQUE: Multiplanar MR without contrast using heavily weighted [id number] for evaluation of biliary tree.FINDINGS: No intrahepatic [...] gallbladderdisease.3. Recommend hepatobiliary imaging.4. Mild splenomegaly. ACC: [id number] ORDER: Culture Blood DATE: 11/26/2018 01:28 SOURCE: Blood SITE: Reports Pre 11/30/2018 06:38 Aerobic bottle gram stain Gram Positive Rods In 1 of 2 blood culture bottles drawn. Positive Blood culture. Note cultures and clinical presentation before starting antibiotics. Blood culture does not meet the specified criteria for PCR testing. Called results to RANJEET TEAGUE 11/29/2018 07:33:32 Results read back and verified. Culture in progress Pre 11/29/2018 07:33 Aerobic bottle gram stain [...] less than 24 Hrs old == ACC: [id number] ORDER: Culture Blood DATE: 11/26/2018 01:28 SOURCE: Blood SITE: Reports Pre 11/30/2018 06:01 No growth at 4 days. Pre 11/29/2018 06:01 No growth at 3 days. Pre 11/28/2018 06:01 No growth at 2 days. Pre 11/27/2018 06:01 No growth at 1 day. Pre 11/26/2018 16:03 Culture less than 24 Hrs old == ACC: [id number] ORDER: Flu A/B Rapid Screen DATE: 11/25/2018 [...] conclusive in face of acute viral hepatitis, awaiting GI opinion...???ercp in light og elevating bili?? 2. Acute gastroenteritis. Patient with abdominal pain, [...] consider Cardiology evaluation if recurrs. Echo from [facility], EF 55%. No immediate CV evaluation indicated per cardiology 6. Anxiety. start Ativan as needed. 7. Coagulopathy, slightly improved after vitamin K, continue to trend,,, if trend reverses, would transfer to Gastrointestinal prophylaxis. Pepcid. Deep venous thrombosis prophylaxis. Heparin. Discharge goals: declining lfts, not tolerating PO Time spent: 35 min l .continue to trend lft's closely. given worsening LFT's and INR complexity increasing. MRCP reviewed, awaiting GI opinion/recs. Electronically signed by Ceasar Higginbotham Conversion Maintenance Worker Swimming Pool Kadiener at 02/21/2023 8:06 PM CDT documented in this encounter Plan of Treatment Not on file documented as of this encounter Visit Diagnoses Not on filedocumented in this encounter
--- OUTSIDE RECORDS SUMMARY | 2025-06-18 15:13 | XMS_ITS | Encounter Summary ---
Author Organization [employer] ([place], [place], [place], [place]) Address [address] [place] [address] Care Team Providers Care Brush Fabrication Supervisor Name Role Phone Unavailable Primary Care Provider Unavailabl e Encounter Details Date Type Department Care Team (Late st Contact Info) Description 11/29/2018 Transcribed Document [facility] [place] [address] [place] [address] ProviderBonnie MD [address] [place] [address] Social History Tobacco Use Types Packs/Day Years Used Date Smoking Tobacco: Never Assessed Comments Unknown Sex and Gender Information Value Date Recorded Sex Assigned at Not on file Legal Sex Female 6:06 PM CDT Gender Identity Not on file Sexual Orientation Not on file documented as of this encounter Miscellaneous Notes * Cerner Conversion Note - Historical ProviderMD - 11/29/2018 5:22 PM POWER WASHER Care Management Assessment/Plan Entered On: 11/29/2018 17:25 EST Performed On: 11/29/2018 17:22 EST by Lexy Lewis RN Care Management Note Care Management Note : Clinical updates: Alk phos-188/AST-2080/ALT-2147. Pt underwent MRCP- 1) Abnormal appearance of thick-walled gallbladder. Acute gallbladder disease not excluded. Consider hepatobiliary imaging, 2) Nonspecific periportal edema which could be related to gallbladder disease, 3) Recommend hepatobiliary imaging, and 4) Mild splenomegaly. CM will continue to follow. Care Management Note Report : Lexy Lewis RN - 11/28/18 16:36:29 Clinical updates: K-3.4/scr-0.50/Alb-2.4/Bili-2.0/Alk Phos-195/AST-2793/ALT-2285/INR-1.4/Fe-27. MRCP pending. Met with pt at bedside this am and informed pt of CM role. DCP still unkown at this time. CM will continue to follow. Lexy Lewis RN - 11/27/18 14:56:21 [id number] Documentation Status Complete : Yes Lexy Lewis RN - 11/29/2018 17:22 EST Electronically signed by [facility], [facility] Conversion Esl Teacher Cerner at 02/21/2023 8:03 PM CDT documented in this encounter Plan of Treatment Not on file documented as of this encounter Visit Diagnoses Not on filedocumented in this encounter
--- OUTSIDE RECORDS SUMMARY | 2025-06-18 15:13 | XMS_ITS | Encounter Summary ---
Author Organization [employer] ([place], [place], [place], [place]) Address [address] [place] [address] Care Team Providers Care Plastic Molding Operator Name Role Phone Unavailable Primary Care Provider Unavailabl e Encounter Details Date Type Department Care Team (Late st Contact Info) Description 11/28/2018 Transcribed Document [facility] [place] [address] [place] [address] ProviderBonnie MD [address] [place] [address] Social History Tobacco Use Types Packs/Day Years Used Date Smoking Tobacco: Never Assessed Comments Unknown Sex and Gender Information Value Date Recorded Sex Assigned at Not on file Legal Sex Female 6:06 PM CDT Gender Identity Not on file Sexual Orientation Not on file documented as of this encounter Miscellaneous Notes * Cerner Conversion Note - Historical ProviderMD - 11/28/2018 5:00 PM METER READERS SUPERVISOR Chart Check - Review Order Profile Entered On: 11/28/2018 19:23 EST Performed On: 11/28/2018 17:00 EST by Janeth Jeter, RN Chart Check All Active Orders Reviewed : Yes Janeth Jeter, RN - 11/28/2018 19:23 EST documented in this encounter Plan of Treatment Not on file documented as of this encounter Visit Diagnoses Not on filedocumented in this encounter
--- OUTSIDE RECORDS SUMMARY | 2025-06-18 15:13 | XMS_ITS | Encounter Summary ---
Author Organization [employer] ([place], [place], [place], [place]) Address [address] [place] [address] Care Team Providers Care Field Services Analyst Name Role Phone Unavailable Primary Care Provider Unavailabl e Encounter Details Date Type Department Care Team (Late st Contact Info) Description 11/28/2018 Transcribed Document [facility] [place] Family Medicine [address] [place] [address] ProviderBonnie MD [address] [place] [address] Social History Tobacco Use Types Packs/Day Years Used Date Smoking Tobacco: Never Assessed Comments Unknown Sex and Gender Information Value Date Recorded Sex Assigned at Not on file Legal Sex Female 6:06 PM CDT Gender Identity Not on file Sexual Orientation Not on file documented as of this encounter Miscellaneous Notes * Cerner Conversion Note - Bonnie ProviderMD - 11/28/2018 1:16 PM CUTLET MAKER PORK Patient: JULIÁN PARR Age: 38 years Sex: Female : 1980 Associated Diagnoses: None Author: LINDA JAQUEZ II, MD-INT Subjective still with nausea, emesis abd pain persists and is generalized urine darker Review of Systems Constitutional: [No [...] Nebulized Inhalation, Q6H, PRN: Shortness of Breath Ferrlecit: 250 mg, 20 mL, 135 mL/Hr, IV Piggyback, 1-Time Flagyl: 500 mg, 100 mL, 100 mL/Hr, IV Piggyback, Q6H Levaquin: 750 mg, 150 mL, 100 mL/Hr, IV Piggyback, [id number] NaCl 0.9% bolus: 1,000 mL, 1,000 mL/Hr, IV Piggyback, 1-Time Pepcid: 20 mg, Oral, Daily Zofran: 4 mg, IV Push, Q4H, PRN: Nausea cloNIDine: 0.1 mg, Oral, Q4H, PRN: Hypertension heparin: 5,000 Units, SubCutaneous, Q8H hydrALAZINE: 10 mg, IV Push, Q6H, PRN: Hypertension lactulose: 20 Gram, Oral, Q8H morphine: 2 mg, IV Push, Q2H, PRN: Pain (Severe 7-10) oxyCODONE: 10 mg, Oral, Q4H, PRN: Abdominal Pain promethazine: 12.5 mg, IV Push, Q6H, PRN: Nausea/Vomiting Pending Complete pneumococcal 23-polyvalent vaccine: 0.5 mL, IntraMuscular, [id number] Documented Medications Documented PriLOSEC 20 mg oral [...] 1 Tab, PRN, Oral, Q4H , Medications (16) Active Scheduled: (7) famotidine 20 mg tab 20 mg 1 Tab, Oral, Daily heparin 5,000 units/1 mL inj 5,000 Units 1 mL, SubCutaneous, Q8H lactulose 20 g/30 mL oral liq 20 Gram 30 mL, Oral, Q8H levofloxacin/D5w *PREMIX* 750 mg 150 mL, IV Piggyback, [id number] metroNIDAZOLE 500 mg 100 mL, IV Piggyback, Q6H NaCl 0.9% 1,000 mL, IV Piggyback, 1-Time sod ferric gluc cmplx 250 mg 20 mL, IV Piggyback, 1-Time Continuous: (1) Dextrose 5% NaCl 0.9% 1,000 [...] Problem list: Medical Metrorrhagia / SNOMED CT 226652566 / Confirmed Endometriosis / SNOMED CT 114004844 / Confirmed Dyspareunia in female / SNOMED CT 946910119 / Confirmed Anemia / SNOMED CT 778178399 / Confirmed Abnormal vaginal bleeding / SNOMED CT 756444218 / Confirmed heavy, Active Problems (5) Abnormal vaginal bleeding Anemia Dyspareunia in female Endometriosis Metrorrhagia Objective Intake and Output Intake & Output Totals Last 24 Hours (7a-7a) Intake (21 Events) Medications (580.25 mL) Output (1 Events) Medrano Catheter (600 mL) Input Total: 580.25 mL Output Total: 600 mL Balance: -19.75 mL VS/Measurements Vitals Signs (last 24 hrs) Last Charted Minimum Maximum Temp 98.5 (NOV 28 06:30) 98 (NOV 27 23:45) 98.4 (NOV 27 16:00) Mon HR 80 (NOV 28:30) 64 (NOV 27 18:13) 92 (NOV 27 16:00) Resp Rate 18 (NOV 28:30) 14 (NOV 27 18:13) 18 (NOV 27 16:00) SBP 106 (NOV 28:30) 99 (NOV 27 16:00) 112 (NOV 27 18:13) DBP L 56 (NOV 28:30) L 49 (NOV 27:00) 64 (NOV 27 18:13) MAP 68 (NOV 28:30) 61 (NOV 27 16:00) 74 (NOV 27 18:13) SpO2 98 (NOV 28:30) 96 (NOV 27 18:13) 99 (NOV 27 16:00) General: Alert and oriented, Mild distress. Appearance: [...] affect. Results Review General results Interpretation: NOV 28 03:27 141 110 L 5 / H 120 L 3.4 26 L 0.50 \ Labs (Last four charted values) WBC L 2.7 (NOV 27) L 2.4 (NOV 26) L 2.9 (NOV 25) HB L 10.2 (NOV 27) L 10.0 (NOV 26) 13.0 (NOV 25) HCT L 34.0 (NOV 27) L 34.0 (NOV 26) 43.4 (NOV 25) Plt 201 (NOV 27) 216 (NOV 26) 235 (NOV 25) Na 141 (NOV 28) 139 (NOV 27) 140 (NOV 26) 140 (NOV 25) K L 3.4 (NOV 28) 3.7 (NOV 27) 4.3 (NOV 26) 3.5 (NOV 25) Cl 110 (NOV 28) 107 (NOV 27) 108 (NOV 26) 103 (NOV 25) CO2 26 (NOV 28) 24 (NOV 27) 26 (NOV 26) 30 (NOV 25) BUN L 5 (NOV 28) L 5 (NOV 27) L 5 (NOV 26) L 5 (NOV 25) Cr L 0.50 (NOV 28) L 0.50 (NOV 27) L 0.50 (NOV 26) 0.70 (NOV 25) Glu R H 120 (NOV 28) H 116 (NOV 27) 82 (NOV 26) 86 (NOV 25) Ca L 7.5 (NOV 28) L 7.8 (NOV 27) L 7.4 (NOV 26) 8.9 (NOV 25) Lactic 0.8 (NOV 26) 1.0 (NOV 25) PT H 15.2 (NOV 28) H 12.3 (NOV 26) INR H 1.4 (NOV 28) 1.1 (NOV 26) AST H 2793 (NOV 28) H 3202 (NOV 27) H 1863 (NOV 26) H 1923 (NOV 25) ALT H 2285 (NOV 28) H 2209 (NOV 27) H 1322 (NOV 26) H 1430 (NOV 25) ALK P H 195 (NOV 28) H 223 (NOV 27) H 153 (NOV 26) H 173 (NOV 25) T Bili H 2.0 (NOV 28) H 1.7 (NOV 27) 0.6 (NOV 26) 0.6 (NOV 25) PTN L 5.2 (NOV 28) L 5.6 (NOV 27) L 5.9 (NOV 26) 7.8 (NOV 25) ALB L 2.4 (NOV 28) L 2.5 (NOV 27) L 2.7 (NOV 26) 3.7 (NOV 25) Lipase 102 (NOV 25) Troponin <0.015 (NOV 25) <0.015 (NOV 25) No Radiology Results Found ACC: [id number] ORDER: Culture Blood DATE: 11/26/2018 01:28 SOURCE: Blood SITE: Reports Pre 11/28/2018 06:01 No growth at 2 days. Pre 11/27/2018 06:01 No growth at 1 day. Pre 11/26/2018 16:03 Culture less than 24 Hrs old == ACC: [id number] ORDER: Culture Blood DATE: 11/26/2018 01:28 SOURCE: Blood SITE: Reports Pre 11/28/2018 06:01 No growth at 2 days. Pre 11/27/2018 06:01 No growth at 1 day. Pre 11/26/2018 16:03 Culture less than 24 Hrs old == ACC: [id number] ORDER: Flu A/B Rapid Screen DATE: 11/25/2018 [...] evloving coagulopathy...? nutirtional ( Vitasmin K given) will ask GI to re-visit 2. Acute gastroenteritis. Patient with abdominal pain, [...] consider Cardiology evaluation if recurrs. Echo from [facility], EF 55%. No immediate CV evaluation indicated per cardiology 6. Anxiety. start Ativan as needed. Gastrointestinal prophylaxis. Pepcid. Deep venous thrombosis prophylaxis. Heparin. Discharge goals: declining lfts, not tolerating PO Time spent: 35 min lfts worsening..continue to trend closely. given worsening LFT's and INR will ask GI to re-eval. complexity increasing. MRCP documented in this encounter Plan of Treatment Not on file documented as of this encounter Visit Diagnoses Not on filedocumented in this encounter
--- OUTSIDE RECORDS SUMMARY | 2025-06-18 15:13 | XMS_ITS | Encounter Summary ---
Author Organization [employer] ([place], [place], [place], [place]) Address [address] [place] [address] Care Team Providers Care Armature Balancer Name Role Phone Unavailable Primary Care Provider Unavailabl e Encounter Details Date Type Department Care Team (Late st Contact Info) Description 12/01/2018 Transcribed Document [facility] [place] Family Medicine [address] [place] [address] ProviderBonnie MD [address] [place] [address] Social History Tobacco Use Types Packs/Day Years Used Date Smoking Tobacco: Never Assessed Comments Unknown Sex and Gender Information Value Date Recorded Sex Assigned at Not on file Legal Sex Female 6:06 PM CDT Gender Identity Not on file Sexual Orientation Not on file documented as of this encounter Miscellaneous Notes * Cerner Conversion Note - Historical ProviderMD - 12/01/2018 12:30 PM JOB TRAINER Patient: JULIÁN PARR Age: 38 Years Sex: Female : 1980 Subjective No issues overnight, no acute distress. She did vomit again this morning, nonbloody vomitus. Objective Vitals & Measurements T: 36.7 ??C HR: 80 (Monitored) RR: 18 BP: 120/68 MAP: 80 SpO2: 97% Physical Exam General: Awake, alert, oriented. No acute distress. Jaundiced Head: Atraumatic, normocephalic Eyes: PERRL, EOMI, icteric sclera, [place] conjunctiva Neck: Supple, no mass palpable, no bruits heard bilaterally Heart: S1S2, regular rate and rhythm, no murmurs, clicks, or gallops heard Lungs: Clear to auscultation bilaterally, no rales, rhonchi or wheezes Abdomen: Soft, right upper quadrant tenderness noted, normal bowel sounds heard Extremities: No clubbing, cyanosis or edema. Bilateral pedal pulses strong and palpable. Neurologic: No facial droop noted, no slurred speech, no focal neurological deficits Lab Results Blood Gases (Current Encounter/Past 24 Hours) No Blood Gas Results Found (Past 24 Hours) Electrolytes(BMP) Results (Current Encounter/Past 24 Hours) Sodium Level 141 mmol/L 12/01/2018 04:29 Potassium Level 3.2 mmol/L LOW 12/01/2018 04:29 Chloride Level 108 mmol/L 12/01/2018 04:29 Carbon Dioxide Level 26 mmol/L 12/01/2018 04:29 Anion Gap 10 12/01/2018 04:29 Blood Urea Nitrogen <3 mg/dL LOW 12/01/2018 04:29 Glucose Level 93 mg/dL 12/01/2018 04:29 Calcium Level 7.8 mg/dL LOW 12/01/2018 04:29 Creatinine Level 0.50 mg/dL LOW 12/01/2018 04:29 Cardiac Markers (Current Encounter/Past 24 Hours) No Cardiac Marker Results Found (Past 24 Hours) CBC Results (Current Encounter/Past 24 Hours) No CBC Results Found (Past 24 Hours) CMP Results (Current Encounter/Past 24 Hours) eGFR NonAfrican >60 mL/min/1.73m2 12/01/2018 04:29 Bun/Creatinine 2.0 LOW 12/01/2018 04:29 eGFR >60 mL/min/1.73m2 12/01/2018 04:29 A/G Ratio 0.9 LOW 12/01/2018 04:29 Protein Total 5.5 Gram/dL LOW 12/01/2018 04:29 Creatinine Level 0.50 mg/dL LOW 12/01/2018 04:29 Globulin 2.9 Gram/dL 12/01/2018 04:29 Sodium Level 141 mmol/L 12/01/2018 04:29 Potassium Level 3.2 mmol/L LOW 12/01/2018 04:29 Chloride Level 108 mmol/L 12/01/2018 04:29 Carbon Dioxide Level 26 mmol/L 12/01/2018 04:29 Anion Gap 10 12/01/2018 04:29 Alk Phos 182 Units/Liter [place] 12/01/2018 04:29 ALT 1254 Units/Liter TX 12/01/2018 04:29 AST 711 Units/Liter TX 12/01/2018 04:29 Blood Urea Nitrogen <3 mg/dL LOW 12/01/2018 04:29 Glucose Level 93 mg/dL 12/01/2018 04:29 Albumin Level 2.6 Gram/dL LOW 12/01/2018 04:29 Bilirubin Total 4.9 mg/dL [place] 12/01/2018 04:29 Calcium Level 7.8 mg/dL LOW 12/01/2018 04:29 Magnesium Level 1.8 mg/dL 11/30/2018 04:20 Coagulation Results (Current Encounter/Past 24 Hours) PT 14.0 Second(s) TX 12/01/2018 04:12 INR 1.3 TX 12/01/2018 04:12 Creatinine Clearance (Current Encounter/Past 24 Hours) Creatinine Level 0.50 mg/dL LOW 12/01/2018 04:29 Bun/Creatinine 2.0 LOW 12/01/2018 04:29 Estimated Creatinine Clearance 139.97 mL/Min 12/01/2018 04:29 Diagnostic Results No Radiology Results Found Assessment/Plan Altered mental state R41.82 Altered mental status [id number] Dehydration E86.0, Dehydration E86.0, Dehydration E86.0 Hepatitis A B15.9 Orders: potassium chloride, 40 mEq 30 mL, Oral, Liquid, 1-Time, Routine, Start 12/01/18 13:00:00 EST, Stop 12/01/18 13:00:00 EST BMP Basic Metabolic Panel CBC w/ Auto Diff Hepatic Function Panel 1. Hepatitis A. Acute, continue symptomatic treatment, intravenous fluids, pain control. continue Acetyl-Cysteine Jaundice noted, LFTs trending down, INR decreasing. Symptoms remain but there is minimal improvement as noted by the patient. MRCP noted; doubt HIDA would be conclusive in face of acute viral hepatitis. GI is following, await further recommendations 2. Acute gastroenteritis. Patient with abdominal pain, nausea, vomiting, diarrhea. Contiue intravenous fluids. continue empiric intravenous antibiotics LVQ and Flagyl, and [...] consider Cardiology evaluation if recurrs. Echo from [facility], EF 55%. No immediate CV evaluation indicated per cardiology 6. Anxiety. start Ativan as needed. 7. Coagulopathy, slightly improved after vitamin K, continue to trend Hypokalemia???replace orally, check labs daily Gastrointestinal prophylaxis. Pepcid. Deep venous thrombosis prophylaxis. Heparin. documented in this encounter Plan of Treatment Not on file documented as of this encounter Visit Diagnoses Not on filedocumented in this encounter
--- OUTSIDE RECORDS SUMMARY | 2025-06-18 15:13 | XMS_ITS | Encounter Summary ---
Author Organization [employer] ([place], [place], [place], [place]) Address [address] [place] [address] Care Team Providers Care Soap Inspector Name Role Phone Unavailable Primary Care Provider Unavailabl e Encounter Details Date Type Department Care Team (Late st Contact Info) Description 11/30/2018 Transcribed Document [facility] [place] [address] [place] [address] ProviderBonnie MD [address] [place] [address] Social History Tobacco Use Types Packs/Day Years Used Date Smoking Tobacco: Never Assessed Comments Unknown Sex and Gender Information Value Date Recorded Sex Assigned at Not on file Legal Sex Female 6:06 PM CDT Gender Identity Not on file Sexual Orientation Not on file documented as of this encounter Miscellaneous Notes * [employer] Conversion Note - Historical ProviderMD - 11/30/2018 4:28 PM PULPIT OPERATOR Patient: JULIÁN PARR Age: 38 Years Sex: Female : 1980 Chief Complaint Patient awake, but in a catatonic state, not responding to family, started last night but came out of it to talk with boyfriend. Informant is , but they are getting . No hx of this state, no psych hx Subjective today: Vomited (nonbloody) after trial of clear liquids. Not any better. Has had one dose of Zofran today. No itching. 11/28/2018 Patient seen by GI team earlier this admission for acute hepatitis A, [...] with a bariatrician since moving here from [place] approximately 2 years ago. She no longer [...] copy of her labs on discharge from [facility] on 11/22/2018 that showed a total [...] no acute distress, alert and oriented ??3. Looks uncomfortable, has emesis bag in bed HEENT: mild scleral icterus, oral mucosa moist, no drainage from nares or ears NECK; supple, nontender, no lymphadenopathy CARDIAC--RRR, no JVD, no LE edema LUNGS: CTA, with BS = B, ABDOMEN: Obese , no abnormal movements or pulsations, normal BS x 4 quadrants, soft, moderate right upper quadrant tenderness without mass or rebound SKIN: warm, dry, mild jaundice NEURO: grossly intact, speech clear,follows instructions, moves 4 extremities equally PSYCH: appropriate affect, cooperative MS: 4 extremities intact, joints without erythema or edema, nontender : deferred Vitals & Measurements T: 36.7 ??C HR: 84 (Monitored) RR: 17 BP: 103/64 MAP: 73 SpO2: 97% Assessment/Plan () N+W/U = 4; New = 3; Worsen = 2; Stable = 1; Improved = 1; Self-limited = 1 Altered mental state Altered mental status Dehydration, Dehydration, Dehydration Hepatitis A Acute hepatitis A, screening for hepatitis B [...] needed if worsening encephalopathy and INR >1.5 Dr Estrada correctional nurse for the weekend, please call if needed. Allergies Ceclor penicillin (seizure) Medications Inpatient acetylcysteine 600 mg oral capsule, 1200 mg, 2 Cap, Oral, BID Ativan, 0.5 mg, 0.25 mL, IV Push, Q4H, PRN cloNIDine, 0.1 mg, 1 Tab, Oral, Q4H, PRN Dextrose 5% with 0.9% NaCl intravenous solution 1,000 mL, 1000 mL, IntraVENous DuoNeb 0.5 mg-2.5 mg/3 mL inhalation solution, 3 mL, Nebulized Inhalation , Q6H, PRN ergocalciferol, 39792 Units, 1 Cap, Oral, Weekly Flagyl, 500 mg, 100 mL, IV Piggyback, Q6H heparin, 5000 Units, 1 mL, SubCutaneous, Q8H hydrALAZINE, 10 mg, 0.5 mL, IV Push, Q6H, PRN lactulose, 20 Gram, 30 mL, Oral, Q8H Levaquin, 750 mg, 150 mL, IV Piggyback, [id number] morphine, 2 mg, 1 mL, IV Push, Q2H, PRN NaCl 0.9% bolus, 1000 mL, IV Piggyback, 1-Time NaCl 0.9% bolus, 1000 mL, IV Piggyback, [...] Results (Current Encounter/Past 24 Hours) Sodium Level 142 mmol/L 11/30/2018 04:20 Potassium Level 3.4 mmol/L LOW 11/30/2018 04:20 Chloride Level 110 mmol/L 11/30/2018 04:20 Carbon Dioxide Level 23 mmol/L 11/30/2018 04:20 Anion Gap 12 11/30/2018 04:20 Blood Urea Nitrogen 3 mg/dL LOW 11/30/2018 04:20 Glucose Level 91 mg/dL 11/30/2018 04:20 Calcium Level 7.8 mg/dL LOW 11/30/2018 04:20 Creatinine Level 0.40 mg/dL LOW 11/30/2018 04:20 Cardiac Markers (Current Encounter/Past 24 Hours) No Cardiac Marker Results Found (Past 24 Hours) CBC Results (Current Encounter/Past 24 Hours) No CBC Results Found (Past 24 Hours) CMP Results (Current Encounter/Past 24 Hours) eGFR NonAfrican >60 mL/min/1.73m2 11/30/2018 04:20 Bun/Creatinine 7.5 LOW 11/30/2018 04:20 eGFR >60 mL/min/1.73m2 11/30/2018 04:20 A/G Ratio 0.9 [facility] 11/30/2018 04:20 Protein Total 5.1 Gram/dL LOW 11/30/2018 04:20 Creatinine Level 0.40 mg/dL LOW 11/30/2018 04:20 Globulin 2.7 Gram/dL 11/30/2018 04:20 Sodium Level 142 mmol/L 11/30/2018 04:20 Potassium Level 3.4 mmol/L LOW 11/30/2018 04:20 Chloride Level 110 mmol/L 11/30/2018 04:20 Carbon Dioxide Level 23 mmol/L 11/30/2018 04:20 Anion Gap 11/30/2018 04:20 Alk Phos 173 Units/Liter [place] 11/30/2018 04:20 ALT 1495 Units/Liter [place] 11/30/2018 04:20 AST 1227 Units/Liter [place] 11/30/2018 04:20 Blood Urea Nitrogen 3 mg/dL [facility] 11/30/2018 04:20 Glucose Level 91 mg/dL 11/30/2018 04:20 Albumin Level 2.4 Gram/dL [facility] 11/30/2018 04:20 Bilirubin Total 3.8 mg/dL [place] 11/30/2018 04:20 Calcium Level 7.8 mg/dL [facility] 11/30/2018 04:20 Magnesium Level 1.8 mg/dL 11/30/2018 04:20 Coagulation Results (Current Encounter/Past 24 Hours) PT 14.0 Second(s) OK 11/30/2018 05:11 INR 1.3 OK 11/30/2018 03:58 Creatinine Clearance (Current Encounter/Past 24 Hours) Creatinine Level 0.40 mg/dL [facility] 11/30/2018 04:20 Bun/Creatinine 7.5 LOW 11/30/2018 04:20 Estimated Creatinine Clearance 174.96 mL/Min 11/30/2018 04:20 Diagnostic Results Result Type: MRI MRCP WO Result Date: November 29, 2018 9:21 EST Result Status: Auth (Verified) Result Title/Subject: MRI MRCP WO Signed By/Author: DAYLIN RAUSCH MD-RAD on November 29, 2018 10:04 EST Verified By: DAYLIN RAUSCH MD-RAD on November 29, 2018 13:21 EST Encounter info: [id number], [facility], Inpatient, 11/25/2018 - * Final Report * Reason For Exam Abdominal Pain REPORT MR ABDOMEN, MRCP PROTOCOL HISTORY: Abdominal pain. TECHNIQUE: Multiplanar MR without contrast using heavily weighted T2 sequences for evaluation of biliary tree. FINDINGS: No intrahepatic biliary ductal dilatation is seen. Periportal edema is present. Portal vein is mildly enlarged. Portal hypertension is not excluded. Gallbladder wall thickening is present. Curvilinear low signal intensity is seen within the gallbladder lumen which could be sludge or related to acute gallbladder disease. There is no ascites. No adenopathy is seen. Pancreatic duct is normal. IMPRESSION: 1. Abnormal appearance of thick-walled gallbladder. Acute gallbladder disease not excluded. Consider hepatobiliary imaging. 2. Nonspecific periportal edema which could be related to gallbladder disease. 3. Recommend hepatobiliary imaging. 4. Mild splenomegaly. Electronically signed by [facility] Conversion Pelt Dropper Cerner at 02/21/2023 8:14 PM CDT documented in this encounter Plan of Treatment Not on file documented as of this encounter Visit Diagnoses Not on filedocumented in this encounter
--- OUTSIDE RECORDS SUMMARY | 2025-06-18 15:13 | XMS_ITS | Encounter Summary ---
Author Organization [employer] ([place], [place], [place], [place]) Address [address] [place] [address] Care Team Providers Care Ecosystem Ecology Professor Name Role Phone Unavailable Primary Care Provider Unavailabl e Encounter Details Date Type Department Care Team (Late st Contact Info) Description 12/03/2018 Transcribed Document [facility] [place] Family Medicine [address] [place] [address] ProviderBonnie MD [address] [place] [address] Social History Tobacco Use Types Packs/Day Years Used Date Smoking Tobacco: Never Assessed Comments Unknown Sex and Gender Information Value Date Recorded Sex Assigned at Not on file Legal Sex Female 6:06 PM CDT Gender Identity Not on file Sexual Orientation Not on file documented as of this encounter Miscellaneous Notes * Cerner Conversion Note - Bonnie ProviderMD - 12/03/2018 12:11 PM RETAIL PERFORMANCE SPECIALIST [address] [place], [place] [id number] Patient Copy Patient Information: Name: JULIÁN PARR Current Date: 12/03/2018 12:11:17 : 1980 Patient Address: [place] [address] Patient Attending Physician: LINDA JAQUEZ II, MD-INT Primary Care Provider: Primary Care Provider Phone: Discharge Diagnosis: Weight on Admission: 226 lb, 10 oz Comment: Follow-up Instructions: With: Address: When: CHINTAN ALMAZAN MD [address] [place] [address]. [address] [place] [address] Comments: follow up as needed for any gallbladder problems Discharge Instructions: Diet after Discharge: Resume usual diet as tolerated Activity after Discharge: As tolerated, No strenuous activities Driving after Discharge: Do not drive Showering/Bathing:May shower Immunizations Documented During Stay: pneumococcal 23-polyvalent vaccine 11/30/2018 Heart Failure Discharge Instructions (if any): Stroke Related Discharge Instructions (if any): Warfarin Related Discharge Instructions (if any): Final Medication List: Other Medications omeprazole (PriLOSEC 20 mg oral delayed release capsule) 1 Capsule(s) Oral Every Day. ondansetron (Zofran 4 mg oral tablet) 1 Tablet(s) Oral Every 4 Hours as needed Nausea/Vomiting. promethazine (promethazine 12.5 mg oral tablet) 1 Tablet(s) Oral Every 6 Hours as needed for nausea/vomiting. Patient Allergies: Ceclor; penicillin Medication Instructions: Take [...] 11/25/2011 Document Revised: 03/30/2017 Document Reviewed: 01/28/2015 [employer] Interactive Patient Education ? 2017 [employer] Cholelithiasis Cholelithiasis is also called gallstones. It is a kind of gallbladder disease. The gallbladder is an organ that stores a liquid (bile) that helps you digest fat. Gallstones may not cause symptoms (may be silent gallstones) until they cause a blockage, and then they can cause pain (gallbladder attack). Follow these instructions at home: ??? Take rles-vhx-rvhiyiy and prescription medicines only as told by [...] 07/09/2017 Elsevier Interactive Patient Education ? 2017 [employer]. CIGARETTE SMOKING: The facts are clear, cigarette smoking will shorten your life. Smoking can cause many illnesses along the way. As a healthcare provider, we recommend that you stop smoking. Assistance with quitting is available by contacting 0-626-RLBX-NOW. This is a free resource providing counseling, [...] Be sure to sign up for the [employer] patient portal, which gives you 29/05 access to your medical information ??? including these discharge instructions ??? using your computer, smartphone, or tablet. Just go to [employer] to get started. Questions? Call . [facility] would like to thank you for allowing us to assist you with your healthcare needs. WILMAR Green KELLY NICOLE, (or administrative representative) have received the above patient education materials/instructions and have verbalized understanding: Patient Signature _ Date/Time Patient Cylinder Inspector And Tester Signature (if needed) Date/Time Clinician/Hospital Cylinder Inspector And Tester Signature (if needed) Date/Time documented in this encounter Plan of Treatment Not on file documented as of this encounter Visit Diagnoses Not on filedocumented in this encounter
--- OUTSIDE RECORDS SUMMARY | 2025-06-18 15:13 | XMS_ITS | Encounter Summary ---
Author Organization [employer] ([place], [place], [place], [place]) Address [address] [facility] [address] Care Team Providers Care Hedge Fund Accountant Name Role Phone Unavailable Primary Care Provider Unavailabl e Encounter Details Date Type Department Care Team (Late st Contact Info) Description 11/27/2018 Transcribed Document [facility] [place] [address] [place] [address] ProviderBonnie MD [address] [place] [address] Social History Tobacco Use Types Packs/Day Years Used Date Smoking Tobacco: Never Assessed Comments Unknown Sex and Gender Information Value Date Recorded Sex Assigned at Not on file Legal Sex Female 6:06 PM CDT Gender Identity Not on file Sexual Orientation Not on file documented as of this encounter Miscellaneous Notes * Cerner Conversion Note - Bonnie ProviderMD - 11/27/2018 2:12 PM GEOTECHNICAL OPERATING ENGINEER Patient: JULIÁN PARR Age: 38 years Sex: Female : 1980 Associated Diagnoses: None Author: LINDA JAQUEZ II, MD-INT Subjective still with nausea, emesis irecurrs with movement abd pain persists and is generalized Review of Systems Constitutional: [No fevers, chills, [...] mg, 150 mL, 100 mL/Hr, IV Piggyback, [id number] NaCl 0.9% bolus: 1,000 mL, 1,000 mL/Hr, [...] 10 mg, Oral, Q4H, PRN: Abdominal Pain Pending Complete pneumococcal 23-polyvalent vaccine: 0.5 mL, IntraMuscular, [id number] Documented Medications Documented PriLOSEC 20 mg oral [...] Q4H , Medications (16) Active Scheduled: (7) acetylcysteine 600 mg cap 1,200 mg 2 Cap, Oral, BID famotidine 20 mg tab 20 mg 1 Tab, Oral, Daily heparin 5,000 units/1 mL inj 5,000 Units 1 mL, SubCutaneous, Q8H lactulose 20 g/30 mL oral liq 20 Gram 30 mL, Oral, Q8H levofloxacin/D5w *PREMIX* 750 mg 150 mL, IV Piggyback, [id number] metroNIDAZOLE 500 mg 100 mL, IV Piggyback, Q6H NaCl 0.9% 1,000 mL, IV Piggyback, 1-Time Continuous: (1) Dextrose [...] Oral, Q4H promethazine 25 mg/1 mL inj 6.25 mg 0.25 mL, IntraVENous, Q6H Problem list: Medical Metrorrhagia / SNOMED CT 835542723 / Confirmed Endometriosis / SNOMED CT 828112805 / Confirmed Dyspareunia in female / SNOMED CT 036799093 / Confirmed Anemia / SNOMED CT 652515906 / Confirmed Abnormal vaginal bleeding / SNOMED CT 073690435 / Confirmed heavy, Active Problems (5) Abnormal vaginal bleeding Anemia Dyspareunia in female Endometriosis Metrorrhagia Objective Intake and Output Intake & Output Totals Last 24 Hours (7a-7a) Intake (23 Events) Continuous Infusions (66.6667 mL) Medications (745.42 mL) Oral Intake (240 mL) Output (2 Events) Ruiz Catheter (1725 mL) Input Total: 1052.0867 mL Output Total: 1725 mL Balance: -672.9133 mL VS/Measurements Measurements from flowsheet : Measurements 11/26/2018 4:58 EST Height Source Estimated Height Entry Format [place] Height/Length, [place] (ft) 5 ft Height/Length [place] 5 Inch CLINICALHEIGHT 165.1 cm Type of Weight Measurement. [place] Weight, est lb 220 lb Estimated Clinical Dosing Weight 100 kg [place] Body Weight 57 kg Weight Source Estimated , Vitals Signs (last 24 hrs) Last Charted Minimum Maximum Temp 98.2 (NOV 27 06:13) 98.2 (NOV 27:13) 98.8 (NOV 26 15:30) Mon HR 71 (NOV 27 06:13) 71 (NOV 27 06:13) 86 (NOV 26:49) Resp Rate 18 (NOV 27 06:13) 18 (NOV 26 15:30) 18 (NOV 26 15:30) SBP L 86 (NOV 27 06:13) L 86 (NOV 27 06:13) 123 (NOV 26:49) DBP L 39 (NOV 27 06:13) L 39 (NOV 27 06:13) 71 (NOV 26:49) MAP 51 (NOV 27 06:13) 51 (NOV 27 06:13) 84 (NOV 26:49) SpO2 98 (NOV 27 02:35) 97 (NOV 26 15:30) 98 (NOV 26 18:09) General: Alert and oriented, Mild distress. Appearance: [...] & affect. Results Review General results Interpretation: KIA 22 03:25 139 107 L 5 / H 116 3.7 24 L 0.50 \ NOV 27 03:25 \ L 10.2 / L 2.7 201 / L 34.0 \ Labs (Last four charted values) WBC L 2.7 (NOV 27) L 2.4 (NOV 26) L 2.9 (NOV 25) HB L 10.2 (NOV 27) L 10.0 (NOV 26) 13.0 (NOV 25) HCT L 34.0 (NOV 27) L 34.0 (NOV 26) 43.4 (NOV 25) Plt 201 (NOV 27) 216 (NOV 26) 235 (NOV 25) Na 139 (NOV 27) 140 (NOV 26) 140 (NOV 25) K 3.7 (NOV 27) 4.3 (NOV 26) 3.5 (NOV 25) Cl 107 (NOV 27) 108 (NOV 26) 103 (NOV 25) CO2 24 (NOV 27) 26 (NOV 26) 30 (NOV 25) BUN L 5 (NOV 27) L 5 (NOV 26) L 5 (NOV 25) Cr L 0.50 (NOV 27) L 0.50 (NOV 26) 0.70 (NOV 25) Glu R H 116 (NOV 27) 82 (NOV 26) 86 (NOV 25) Ca L 7.8 (NOV 27) L 7.4 (NOV 26) 8.9 (NOV 25) Lactic 0.8 (NOV 26) 1.0 (NOV 25) PT H 12.3 (NOV 26) INR 1.1 (NOV 26) AST H 3202 (NOV 27) H 1863 (NOV 26) H 1923 (NOV 25) ALT H 2209 (NOV 27) H 1322 (NOV 26) H 1430 (NOV 25) ALK P H 223 (NOV 27) H 153 (NOV 26) H 173 (NOV 25) T Bili H 1.7 (NOV 27) 0.6 (NOV 26) 0.6 (NOV 25) PTN L 5.6 (NOV 27) L 5.9 (NOV 26) 7.8 (NOV 25) ALB L 2.5 (NOV 27) L 2.7 (NOV 26) 3.7 (NOV 25) Lipase 102 (NOV 25) Troponin <0.015 (NOV 25) <0.015 (NOV 25) Radiology Results (Last 48 hours) [id number] -- 11/25/2018 22:24 CR Chest 1 Vw [...] with the above final transcribed report. ACC: [id number] ORDER: Culture Blood DATE: 11/26/2018 01:28 SOURCE: Blood SITE: Reports Pre 11/27/2018 06:01 No growth at 1 day. Pre 11/26/2018 16:03 Culture less than 24 Hrs old == [facility]: [id number] ORDER: Culture Blood DATE: 11/26/2018 01:28 SOURCE: Blood SITE: Reports Pre 11/27/2018 06:01 No growth at 1 day. Pre 11/26/2018 16:03 Culture less than 24 Hrs old == [facility]: [id number] ORDER: Flu A/B Rapid Screen DATE: 11/25/2018 [...] lfts, tolerating PO Time spent: 35 min lfts worsening..continue to trend closely. given worsening LFT's will trend INR as well Electronically signed by Ceasar Higginbotham Conversion Transportation Design Engineer Cerner at 02/21/2023 8:11 PM CDT documented in this encounter Plan of Treatment Not on file documented as of this encounter Visit Diagnoses Not on filedocumented in this encounter
--- OUTSIDE RECORDS SUMMARY | 2025-06-18 15:13 | XMS_ITS | Encounter Summary ---
Author Organization [employer] ([place], [place], [place], [place]) Address [address] [place] [address] Care Team Providers Care Group Sales Manager Name Role Phone Unavailable Primary Care Provider Unavailabl e Encounter Details Date Type Department Care Team (Late st Contact Info) Description 11/27/2018 Transcribed Document [facility] [place] [address] [place] [address] ProviderBonnie MD [address] [place] [address] Social History Tobacco Use Types Packs/Day Years Used Date Smoking Tobacco: Never Assessed Comments Unknown Sex and Gender Information Value Date Recorded Sex Assigned at Not on file Legal Sex Female 6:06 PM CDT Gender Identity Not on file Sexual Orientation Not on file documented as of this encounter Miscellaneous Notes * Cerner Conversion Note - Bonnie Poole MD - 11/27/2018 8:23 AM SOFTWARE SALES EXECUTIVE Patient: JULIÁN PARR Age: 38 years Sex: Female : 1980 Associated Diagnoses: None Author: ROSIBEL PEÑA MD-[facility] Health Status Current medications: (Selected) Inpatient Medications Ordered Ativan: 0.5 mg, IV Push, Q4H, PRN: Agitation Dextrose 5% with 0.9% NaCl intravenous solution 1,000 mL: 125 mL/Hr, IntraVENous DuoNeb 0.5 mg-2.5 mg/3 mL inhalation solution: 3 mL, Nebulized Inhalation, Q6H, PRN: Shortness of Breath Flagyl: 500 mg, 100 mL, 100 mL/Hr, IV Piggyback, Q6H Levaquin: 750 mg, 150 mL, 100 mL/Hr, IV Piggyback, N05FLib NaCl 0.9% bolus: 1,000 mL, 1,000 mL/Hr, [...] 10 mg, Oral, Q4H, PRN: Abdominal Pain pneumococcal 23-polyvalent vaccine: 0.5 mL, IntraMuscular, [id number] Objective Intake and Output 24 hour intake: Total 1,050 ml 24 hour output: Total 1,725 ml VS/Measurements Vitals Signs (last 24 hrs) Last Charted Minimum Maximum Temp 98.2 (NOV 27 06:13) 98.2 (NOV 27:) 98.6 (NOV 26 08:29) Mon HR 71 (NOV 27 06:13) 68 (NOV 26 09:00) 86 (NOV 26 21:49) Resp Rate 18 (NOV 27:) 15 (NOV 26 08:29) H 21 (NOV 26 08:30) SBP L 86 (NOV 27 06:13) L 86 (NOV 27 06:13) 126 (NOV 26 09:30) DBP L 39 (NOV 27:13) L 39 (NOV 27:13) 74 (NOV 26 09:30) MAP 51 (NOV 27 06:13) 51 (NOV 27 06:13) 97 (NOV 26 09:30) SpO2 98 (NOV 27 02:35) 97 (NOV 26 09:00) 99 (NOV 26 08:29) General: Alert and oriented, No acute distress. Eye: Pupils are equal, round and reactive to light, Normal conjunctiva, Vision unchanged. HENT: Normocephalic. Neck: Supple, Non-tender, No carotid bruit, No jugular venous distention. Respiratory: Lungs are clear to auscultation, Respirations are non-labored, Breath sounds are equal, Symmetrical chest wall expansion. Cardiovascular: Normal rate, Regular rhythm, No murmur, Good pulses equal in all extremities. Gastrointestinal: Soft, Non-distended, Normal bowel sounds. Musculoskeletal: Normal range of motion, Normal strength. Integumentary: Warm, Dry, [place]. Neurologic: Alert, Oriented. Psychiatric: Cooperative, Appropriate mood & affect. Results Review Telemetry Admission Weight Todays Weight NOV 27 03:25 139 107 L 5 / H 116 3.7 24 L 0.50 \ NOV 27 03:25 \ L 10.2 / L 2.7 201 / L 34.0 \ Cardiac Markers (Current Encounter/Past 24 Hours) No Cardiac Marker Results Found (Past 24 Hours) Radiology Results (Last 48 hours) [id number] -- 11/25/2018 22:24 CR Chest 1 Vw [...] agree with the above final transcribed report. Impression and Plan IMPRESSION: * Atypical Chest Pain in setting of N/V, dizziness and islolated syncopal episode - EKG: Sinus Tach - Troponin negative * ? Abnormal Echo - obtaining copy from OSH * Hepatitis A - AST 1800, ALT 1300, alkaline phosphatase 153 * Cholelithiasis * Anemia - Hgb 10 PLAN; 11/27/18 Echo from [facility] [place], EF 55%. No immediate CV evaluation indicated. Will sign-off, call if questions. 11/26/18 Obtaining copy of Echo from [facility]. Anemia per primary service. Electronically signed by Ceasar Higginbotham Conversion Entry Level Sales Associate Cerner at 02/21/2023 8:26 PM CDT documented in this encounter Plan of Treatment Not on file documented as of this encounter Visit Diagnoses Not on filedocumented in this encounter
--- OUTSIDE RECORDS SUMMARY | 2025-06-18 15:13 | XMS_ITS | Encounter Summary ---
Author Organization [employer] ([place], [place], [place], [place]) Address [address] [place] [address] Care Team Providers Care Search Engine Optimization Analyst Name Role Phone Unavailable Primary Care Provider Unavailabl e Encounter Details Date Type Department Care Team (Late st Contact Info) Description 12/02/2018 Transcribed Document [facility] [place] [address] [place] [address] ProviderBonnie MD [address] [place] [address] Social History Tobacco Use Types Packs/Day Years Used Date Smoking Tobacco: Never Assessed Comments Unknown Sex and Gender Information Value Date Recorded Sex Assigned at Not on file Legal Sex Female 6:06 PM CDT Gender Identity Not on file Sexual Orientation Not on file documented as of this encounter Miscellaneous Notes * Cerner Conversion Note - Historical ProviderMD - 12/02/2018 6:56 AM ENERGY MANAGER Patient: JULIÁN PARR Age: 38 Years Sex: Female : 1980 Subjective no issues overnight, still has nausea this morning but no vomiting. Received Zofran Objective Vitals & Measurements T: 37 ??C HR: 81 (Monitored) RR: 16 BP: 106/70 MAP: 77 SpO2: 98% Physical Exam General: Awake, alert, oriented. No acute distress. Head: Atraumatic, normocephalic Eyes: PERRL, EOMI, Anicteric sclera, Blain conjunctiva Neck: Supple, no mass palpable, no [...] Encounter/Past 24 Hours) Sodium Level 142 mmol/L 12/02/2018 03:20 Potassium Level 3.7 mmol/L 12/02/2018 03:20 Chloride Level 107 mmol/L 12/02/2018 03:20 Carbon Dioxide Level 28 mmol/L 12/02/2018 03:20 Anion Gap 11 12/02/2018 03:20 Blood Urea Nitrogen <3 mg/dL LOW 12/02/2018 03:20 Glucose Level 95 mg/dL 12/02/2018 03:20 Calcium Level 7.7 mg/dL LOW 12/02/2018 03:20 Creatinine Level 0.50 mg/dL LOW 12/02/2018 03:20 Cardiac Markers (Current Encounter/Past 24 Hours) No Cardiac Marker Results Found (Past 24 Hours) CBC Results (Current Encounter/Past 24 Hours) WBC 3.4 K/uL LOW 12/02/2018 03:03 Hct 33.4 % LOW 12/02/2018 03:03 Hgb 10.2 g/dL LOW 12/02/2018 03:03 Platelet Count 224 K/uL 12/02/2018 03:03 CMP Results (Current Encounter/Past 24 Hours) eGFR NonAfrican >60 mL/min/1.73m2 12/02/2018 03:20 Bun/Creatinine 4.0 LOW 12/02/2018 03:20 eGFR >60 mL/min/1.73m2 12/02/2018 03:20 A/G Ratio 0.8 LOW 12/02/2018 03:20 Protein Total 5.4 Gram/dL LOW 12/02/2018 03:20 Creatinine Level 0.50 mg/dL LOW 12/02/2018 03:20 Globulin 3.0 Gram/dL 12/02/2018 03:20 Sodium Level 142 mmol/L 12/02/2018 03:20 Potassium Level 3.7 mmol/L 12/02/2018 03:20 Chloride Level 107 mmol/L 12/02/2018 03:20 Carbon Dioxide Level 28 mmol/L 12/02/2018 03:20 Anion Gap 11 12/02/2018 03:20 Alk Phos 178 Units/Liter [place] 12/02/2018 03:20 ALT 900 Units/Liter [place] 12/02/2018 03:20 AST 503 Units/Liter [place] 12/02/2018 03:20 Blood Urea Nitrogen <3 mg/dL LOW 12/02/2018 03:20 Glucose Level 95 mg/dL 12/02/2018 03:20 Albumin Level 2.4 Gram/dL LOW 12/02/2018 03:20 Bilirubin Total 5.0 mg/dL [place] 12/02/2018 03:20 Calcium Level 7.7 mg/dL LOW 12/02/2018 03:20 Coagulation Results (Current Encounter/Past 24 Hours) PT 13.7 Second(s) [place] 12/02/2018 03:12 INR 1.3 [place] 12/02/2018 03:12 Creatinine Clearance (Current Encounter/Past 24 Hours) Creatinine Level 0.50 mg/dL [facility] 12/02/2018 03:20 Bun/Creatinine 4.0 [facility] 12/02/2018 03:20 Estimated Creatinine Clearance 139.97 mL/Min 12/01/2018 04:29 Diagnostic Results No Radiology Results Found Assessment/Plan Altered mental state R41.82 Altered mental status [id number] Dehydration E86.0, Dehydration E86.0, Dehydration E86.0 Hepatitis A B15.9 Orders: Culture Urine 1. Hepatitis A. Acute, continue symptomatic treatment, intravenous fluids, pain control. Jaundice noted, LFTs trending down, INR decreasing. Symptoms remain, Small improvement in symptoms, continue Zofran for nausea. unlikely to need transfer to liver transplant center. 2. Acute gastroenteritis. Patient with abdominal pain, nausea, vomiting, diarrhea. Contiue intravenous fluids. continue empiric intravenous antibiotics Levaquin and Flagyl, and the patient will be monitored closely. 3. Dehydration. continue intravenous fluids. 4. Anxiety. start Ativan as needed. apical clean resolved Gastrointestinal prophylaxis. Pepcid. Deep venous thrombosis prophylaxis. Heparin. Full code Likely discharge in 24-48 hours when symptoms have subsided documented in this encounter Plan of Treatment Not on file documented as of this encounter Visit Diagnoses Not on filedocumented in this encounter
--- NOTE | 2025-06-18 15:14 | XR_ITS ---
FINAL REPORT CLINICAL HISTORY: Shortness of breath COMPARISON: 04/04/2024 FINDINGS: PA and lateral views of the chest are obtained. The cardiac and mediastinal silhouettes are within normal limits. The lungs are clear. There is no pleural effusion, pneumothorax, or acute osseous abnormality. IMPRESSION: No radiographic evidence of acute cardiac or pulmonary disease. Reviewed, Interpreted and Dictated by Kassandra Ag MD Transcribed by Lakesha Correa Authenticated and [facility]
[2025-06-18 15:27] LABS: Coronavirus 19, PCR Not Detected (NotDetected); Influenza A, PCR Not Detected (NotDetected); Influenza B, PCR Not Detected (NotDetected)
[2025-06-18 15:39] LABS: Hematocrit 47.4 % (37.0-47.0); Hemoglobin 15.2 g/dL (12.2-16.2); Immature Granulocytes % 0.5 %; Mean Corpuscular HGB Conc 32.1 g/dL (31.8-35.4); Mean Corpuscular Hemoglobin 27.3 pg (27.0-31.2); Mean Corpuscular Volume 85.1 fl (81-99); Nucleated Red Blood Cells % 0 %; Platelet Count 357 K/mm3 (142-424); Red Blood Count 5.57 M/mm3 (4.20-5.40); Red Cell Distribution Width-SD 37.9 fL; White Blood Count 10.9 K/mm3 (4.8-10.8)
[2025-06-18 16:22] LABS: Chloride 100 mmol/L (98-107)
[2025-06-18 16:23] LABS: Albumin Level 5.4 g/dl (3.5-5.0); Potassium 4.3 mmoL/L (3.5-5.1); Sodium 143 mmol/L (136-145)
[2025-06-18 16:26] LABS: Alanine Aminotransferase 25 U/L (12-78); Albumin/Globulin Ratio 1.5 (1.1-1.8); Alkaline Phosphatase 120 U/L (38-126); Anion Gap 20.3 mEq/L (5-15); Aspartate Amino Transferase 30 U/L (14-36); Bilirubin,Direct 0.4 mg/dl (0.0-0.4); Bilirubin,Indirect 0.6 mg/dL (0.0-0.9); Bilirubin,Total 1.0 mg/dl (0.2-1.3); Bilirubin,Unconjugated 0.6 mg/dL (0.0-1.1); Blood Urea Nitrogen 11 mg/dl (7-17); Calcium 10.2 mg/dl (8.4-10.2); Carbon Dioxide 27 mmol/L (22.0-30.0); Creatinine,Serum 0.80 mg/dl (0.52-1.04); Estimated Glomerular Filt Rate 78 ml/min (>60); GFR (African American) 95 ML/MIN (>60); Globulin 3.7 g/dL (1.3-3.2); Glucose 103 mg/dl (74-100); Total Protein,Serum 9.1 g/dl (6.3-8.2)
== END 2025-06-18 23:59 | disposition home or self-care (01) ==
LOC: RAD 15:10
PROVIDERS: PCP Nurse Practitioner Family; Visit Provider Nurse Practitioner Family
DX: B15.9 Hepatitis A without hepatic coma (principal); J98.9 Respiratory disorder, unspecified; G83.4 Cauda equina syndrome; M79.7 Fibromyalgia; R06.02 Shortness of breath
CPT/HCPCS: 71046; 80053; 82248; 85025; 87631

== ENCOUNTER 2025-06-27 13:16 | Day surgery (SDC) | payer OTHER, SELFPAY ==
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
--- NOTE | 2025-06-27 13:27 | P.PCN_ITS ---
Procedure Date: 06/27/25 Time: 14:04 Anesthesiologist:: Yolie Pierre APRN Complications:: None Pre-procedure Diagnosis:: Degenerative disc disease of lumbar spine with lumbar radiculopathy symptoms, chronic sacroiliitis Post-procedure Diagnosis:: Same Indications for Procedure:: Patient is a pleasant 45-year-old female who presents today for intrathecal refill and reprogram. She rates her pain today as 7 out of 10. Patient is still having the right hip/groin/upper thigh numbness. Patient at our last visit was submitted for the right SI fusion. Patient is asking for updates today. Patient does state the last couple weeks she has just not felt herself. Patient states that she just feels under the weather but has been checked for flu and COVID and all of it was negative. Patient is currently managed with Dilaudid 1 mg/mL with a daily dose of 0.4201 mg/day and bupivacaine 15 mg/mL within daily dose of 6.301 mg/day. She denies any side effects. Her Amari has been reviewed and is appropriate. Physical Exam: General: Alert and oriented x3, no acute distress, pleasant and cooperative Lungs: Respirations even and unlabored, symmetrical chest expansion Eyes: PERRL Musculoskeletal: Flexion and extension of lumbar [spine] somewhat guarded secondary to pain, [antalgic gait noted] Neurological: Speech clear, no gross sensory deficit Procedure Details:: Informed consent was obtained and the risk and benefits of the procedure were explained to the patient. The patient had noninvasive monitoring placed including noninvasive blood pressure cuff and pulse oximeter. Patient's pump was interrogated. The area over the pump was cleansed with chlorhexidine as a cleansing solution. In sterile fashion the pump was accessed with a 22-gauge needle. Approximately 5.2 mls of the pump solution was removed and discarded appropriately. The pump was then refilled with 20 mL's of Dilaudid 1 mg/mL and bupivacaine 15 mg/mL. The needle was withdrawn and a bandage was placed over the puncture site. The infusion rate was reprogrammed and continued at its current dosage. The patient tolerated well with no complication. Plan and Disposition:: Patient tolerated the procedure well with no complications and was discharged neurologically intact. I did discuss with the patient that we will check and see where we are at with the SI fusion. Patient was ultimately counseled that unfortunately our July schedule is full and we are planning on putting her on for the fusion in August. Patient acknowledges understanding agrees with plan of care. I will send in a 5-day dose of prednisone 20 mg twice a day and see if this does help overall her current symptoms. Patient denied any recent oral steroid use for the last 3 months. Patient will return to clinic on or bef ore their next intrathecal refill date. We will see the patient back in the clinic at the next intrathecal refill. Patient has been instructed to contact the clinic with any concerns before the next appointment. Dr. Jimenez has reviewed this note and agrees with this plan of care. This note was dictated using voice recognition software and make contain errors or omissions. -- It Is medically necessary for this patient to continue to have their intrathecal pump refilled at regular intervals. This patient had an intrathecal pain pump implanted after meeting criteria of chronic intractable pain for greater than 3 months and failing conservative treatments. Patient has committed and been compliant to the treatment plan and all planned follow up care. Since implantation of the intrathecal pain pump, the patient has had decreased pain and been more functional. Oral medications have been reduced including intake of oral opioids. Patient continues to do well with intrathecal therapy with dec rease in pain symptoms and increase in functional status. Stopping intrathecal medications can lead to life threatening withdrawal, seizures, cardiac arrest, severe pain, and possible . Pumps that are not refilled at regular intervals can be damages and cause and need for replacement. We continually titrate dose and concentration to optimize pain relief and function. We are limited in concentration for certain drugs to safely deliver medications through the pump and stay within the recommendations from the Polyanalgesic Consensus Committee Guidelines. Depending on dose and concentration these pumps may need to be refilled sooner than 3 months as we titrate. A UDS is needed to verify patient's compliance with our office pain contract. This is ordered based off specific treatments related to chronic pain with the potential to abuse certain medications.
[2025-06-27 13:40] VITALS: BP 155/87; PULSE 108; RESP 18; O2SAT 98; BMI 43.2
[2025-06-27 13:57] VITALS: BP 150/94; PULSE 112; RESP 18; O2SAT 98
[2025-06-27 14:10] VITALS: BP 155/86; PULSE 109; RESP 18; O2SAT 96
== END 2025-06-27 14:10 | disposition home or self-care (01) ==
PROVIDERS: PCP Nurse Practitioner Family; Visit Provider Nurse Practitioner Family
DX: Z45.1 Encounter for adjustment and management of infusion pump (principal); M51.16 Intervertebral disc disorders with radiculopathy, lumbar region; M46.1 Sacroiliitis, not elsewhere classified; F41.9 Anxiety disorder, unspecified; M79.7 Fibromyalgia; I10 Essential (primary) hypertension; E66.01 Morbid (severe) obesity due to excess calories; Z68.41 Body mass index [BMI] 40.0-44.9, adult; G25.81 Restless legs syndrome; Z88.0 Allergy status to penicillin; Z91.09 Other allergy status, other than to drugs and biological substances; Z79.899 Other long term (current) drug therapy
CPT/HCPCS: 62370

== ENCOUNTER 2025-08-01 12:44 | Outpatient (CLI) | payer OTHER, SELFPAY ==
--- OUTSIDE RECORDS SUMMARY | 2025-08-01 12:47 | XMS_ITS | Encounter Summary ---
Author Organization [employer] ([place], [place], [place], [place]) Address [address] [place] [address] Care Team Providers Care Certified Orthotist Practice Manager Name Role Phone Unavailable Primary Care Provider Unavailabl e Encounter Details Date Type Department Care Team (Late st Contact Info) Description 11/26/2018 Transcribed Document [facility] [place] Medicine [address] [place] [address] ProviderBonnie MD [address] [place], [place] [id number] Social History Tobacco Use Types Packs/Day Years Used Date Smoking Tobacco: Never Assessed Comments Unknown Sex and Gender Information Value Date Recorded Sex Assigned at Not on file Legal Sex Female 6:06 PM CDT Gender Identity Not on file Sexual Orientation Not on file documented as of this encounter Miscellaneous Notes * Cerner Conversion Note - Historical ProviderMD - 11/26/2018 4:14 PM COUPON CLERK Patient: JULIÁN PARR Age: 38 Years Sex: [...] says she was diagnosed with Norovirus at [facility] 2 weeks ago, but returned a week [...] Levaquin, 750 mg, 150 mL, IV Piggyback, [id number] morphine, 2 mg, 1 mL, IV Push, Q2H, PRN NaCl 0.9% bolus, 1000 mL, IV Piggyback, 1-Time oxyCODONE, 10 mg, 2 Tab, Oral, Q4H, PRN Pepcid, 20 mg, 1 Tab, Oral, Daily Phenergan, 6.25 mg, 0.25 mL, IntraVENous, Q6H, PRN pneumococcal 23-polyvalent vaccine, 0.5 mL, IntraMuscular, [id number] Zofran, 4 mg, 2 mL, IV Push, [...] Smoking Status Never smoker. 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 She denies any tobacco, alcohol or illicit drug use history. Family History No GI malignancy or disease Lab Results NOV 26 03:12 \ L 10.0 / L 2.4 216 / L 34.0 \ documented in this encounter Plan of Treatment Not on file documented as of this encounter Visit Diagnoses Not on filedocumented in this encounter
--- OUTSIDE RECORDS SUMMARY | 2025-08-01 12:47 | XMS_ITS | Encounter Summary ---
Author Organization [employer] ([place], [place], [place], [place]) Address [address] [place] [address] Care Team Providers Care Clay Carman Name Role Phone Unavailable Primary Care Provider Unavailabl e Encounter Details Date Type Department Care Team (Late st Contact Info) Description 11/26/2018 Transcribed Document [facility] [place] Family Medicine [address] [place] [address] ProviderBonnie MD [address] [place] [address] Social History Tobacco Use Types [...] - Historical ProviderMD - 11/26/2018 5:00 PM LADLER Chart Check - Review Order Profile Entered On: 11/26/2018 17:13 EST Performed On: 11/26/2018 17:00 EST by MADYSON TEAGUE RN Chart Check Chart Reviewed Date and Time : 11/26/2018 17:13 EST Power[employer] Initiated/Discontinued as Appropriate : Yes All Active Orders Reviewed : Yes MADYSON TEAGUE RN - 11/26/2018 17:13 EST Electronically signed by Neftaly [facility] Conversion Product Development Assistant Cerner at 02/21/2023 8:05 PM CDT documented in this encounter Plan of Treatment Not on file documented as of this encounter Visit Diagnoses Not on filedocumented in this encounter
--- OUTSIDE RECORDS SUMMARY | 2025-08-01 12:47 | XMS_ITS | Encounter Summary ---
Author Organization [employer] ([place], [place], [place], [place]) Address [address] [place] [address] Care Team Providers Care Molding Engineer Name Role Phone Unavailable Primary Care Provider Unavailabl e Encounter Details Date Type Department Care Team (Late st Contact Info) Description 11/26/2018 Transcribed Document [facility] [place] Family Medicine [address] [place] [address] ProviderBonnie MD [address] [id number] Social History Tobacco Use Types Packs/Day Years Used Date Smoking Tobacco: Never Assessed Comments Unknown Sex and Gender Information Value Date Recorded Sex Assigned at Not on file Legal Sex Female 6:06 PM CDT Gender Identity Not on file Sexual Orientation Not on file documented as of this encounter Miscellaneous Notes * Cerner Conversion Note - Bonnie ProviderMD - 11/26/2018 8:53 AM CHEF TEACHER Patient: JULIÁN PARR Age: 38 years Sex: [...] 7-10) pneumococcal 23-polyvalent vaccine: 0.5 mL, IntraMuscular, [id number] Documented Medications Documented Zofran 4 mg oral [...] vacc inj 0.5 mL 0.5 mL, IntraMuscular, [id number] Continuous: (1) Dextrose 5% NaCl 0.9% 1,000 [...] Problem list: Medical Metrorrhagia / SNOMED CT 252020959 / Confirmed Endometriosis / SNOMED CT 505940552 / Confirmed Dyspareunia in female / SNOMED CT 106331998 / Confirmed Anemia / SNOMED CT 497260543 / Confirmed Abnormal vaginal bleeding / SNOMED CT 946157301 / Confirmed heavy, Active Problems (5) Abnormal [...] EST Height Source Estimated Height Entry Format [place] Height/Length, POLISH (ft) 5 ft Height/Length POLISH 5 Inch CLINICALHEIGHT 165.1 cm Type of Weight Measurement. [place] Weight, est lb 220 lb Estimated Clinical Dosing Weight 100 kg [place] Body Weight 57 kg Weight Source Estimated 11/25/2018 18:35 EST Height Source Estimated Height Entry Format [place] Height/Length, POLISH (ft) 5 ft Height/Length POLISH 5 Inch CLINICALHEIGHT 165.1 cm [place] Body Weight 56.59 kg Weight Source, ED [...] (NOV 25) Radiology Results (Last 48 hours) [id number] -- 11/25/2018 22:24 CR Chest 1 Vw [...] with the above final transcribed report. ACC: [id number] ORDER: Flu A/B Rapid Screen DATE: 11/25/2018 [...] lfts, tolerating PO Time spent: 35 min documented in this encounter Plan of Treatment Not on file documented as of this encounter Visit Diagnoses Not on filedocumented in this encounter
--- OUTSIDE RECORDS SUMMARY | 2025-08-01 12:47 | XMS_ITS | Encounter Summary ---
Author Organization [employer] ([place], [place], [place], [place]) Address [address] [place] [address] Care Team Providers Care Tax Agent Name Role Phone Unavailable Primary Care Provider Unavailabl e Encounter Details Date Type Department Care Team (Late st Contact Info) Description 11/26/2018 Transcribed Document [facility] [place] Family Medicine [address] [place] [address] ProviderBonnie MD [address], [place] [id number] Social History Tobacco Use Types Packs/Day Years Used Date Smoking Tobacco: Never Assessed Comments Unknown Sex and Gender Information Value Date Recorded Sex Assigned at Not on file Legal Sex Female 6:06 PM CDT Gender Identity Not on file Sexual Orientation Not on file documented as of this encounter Miscellaneous Notes * Cerner Conversion Note - Historical ProviderMD - 11/26/2018 4:58 AM MENHADEN VESSEL PILOT Admission History, Adult Entered On: 11/26/2018 5:06 [...] : Patient, Medical Record Primary Language : Cameroonian Preferred Communication Mode : Verbal Communication Barrier [...] Level : 46 or > High Risk [place] Fall Interventions : Adequate lighting, Bed in [...] Source : Estimated Height Entry Format : [place] Height, Feet : 5 ft(Converted to: 152 cm, 60 Inch) Height, Inches : 5 Inch(Converted to: 0 ft 5 Inch, 12.70 cm) Clinical Height : 165.1 cm Weight Source : Estimated [place] Body Weight : 57 kg Wendy Rodriges Rn - 11/26/2018 4:58 EST Estimated Weight Type of Weight Measurement Est : [place] Weight, est lb : 220 lb(Converted to: [...] Wendy Rodriges Rn - 11/26/2018 4:58 EST Electronically signed by Ceasar Higginbotham Conversion Deskidding Machine Operator Cerner at 02/21/2023 8:08 PM CDT documented in this encounter Plan of Treatment Not on file documented as of this encounter Visit Diagnoses Not on filedocumented in this encounter
--- OUTSIDE RECORDS SUMMARY | 2025-08-01 12:47 | XMS_ITS | Clinical Summary ---
Author Organization [facility] Address [address] [place] [address] Care Team Providers Care Fiber Optic Splicer Name Role Phone Sarita Gómez Primary Care Provider Lucie Reich MD Unavailable [phone] Allergies Active Allergy Reactions Criticality Noted Date [...] of Bob-en-Y gastric bypass 01/09/2023 Hypertension 03/20/2022 Immunizations Immunization Administration Dates Next Due Influenza, [...] any time in the past 12 [facility], were you homeless or living in a group home (including now)? No 09/26/2024 Utilities Answer Date [...] Health Maintenance Due Date Last Done Comments [facility]-/Child/Adol SDOH Screenings 1982 [facility]-Varicella Vaccines (1 of 2 - 13+ 2-dose series) 1995 [facility]-Hepatitis B Vaccines (1 of 3 - 19+ 3-dose series) 2001 HPV Vaccines (1 - 3-dose SCDM series) 2009 [id number]-[id number] Vaccine (3 - Pfizer risk series) 03/25/2021 [...] this topic Medical Devices Implanted Type Area Knitting Supervisor Device Identifier Shelf Expiration Date Model / Serial / Lot Synchromed Ii Pain Pump Flank Medtronic [id number] 0 / [id number] / Catheter Pain Pump Flank Medtronic 8780 / [id number] / Procedures Procedure Name Priority Date/Time Associated [...] Antigen Negative Negative 05/03/2024 3:53 PM EDT [facility] Hepatitis C Antibody Negative Negative 05/03/2024 3:53 PM EDT [facility] Hepatitis A Antibody IgM Negative Negative 05/03/2024 3:53 PM EDT [facility] Comment: Repeat testing on a later sample may be helpful. If repeat testing is indeterminate, no further testing is indicated. Previously prelim verified as Indeterminate on 05/03/2024 at 1521 EDT. Indeterminate is no longer reportable. Hepatitis B Core Antibody IgM Negative Negative 05/03/2024 3:53 PM EDT [facility] Blood Venous blood specimen / Unknown Venipuncture / Unknown 05/03/2024 12:56 PM EDT 05/03/2024 12:56 PM EDT [facility] BLOOD ORDERABLES Final Result Performing Organization Address City/State/[facility] Co de Phone Number [facility] [address] [place] [phone] * HIV 1 & 2 Antibody/Antigen Screen (12/14/2022 10:41 AM EST) HIV 1 & 2 Antibody/Antigen Screen Non Reactive Non Reactive 12/14/2022 12:55 PM EST [facility] Comment:Screening for HIV 1 & 2 antibodies, and P24 antigen is NONREACTIVE. No confirmatory testing is required. 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 Yes Care Teams Fiber Optic Splicer Relationship Specialty Start Date End Date Sarita Gómez PA [address] [place] [address] PCP - General 01/07/22 Lucie Reich MD [address] [place] [id number] Surgeon Neurosurgery 04/08/22
--- OUTSIDE RECORDS SUMMARY | 2025-08-01 12:47 | XMS_ITS | Encounter Summary ---
Author Organization [employer] ([place], [place], [place], [place]) Address [address] [place] [address] Care Team Providers Care Senior Dot Net Developer Name Role Phone Unavailable Primary Care Provider Unavailabl e Encounter Details Date Type Department Care Team (Late st Contact Info) Description 11/26/2018 Transcribed Document [facility] [place] [address] [place] [address] ProviderBonnie MD [address] [place] [address] Social History Tobacco Use Types [...] - Historical ProviderMD - 11/26/2018 10:21 AM TERRITORY SUPERVISOR [address] [place] [address] PERSON INFORMATION Name JULIÁN PARR Age 38 Years 1980 Sex Female Language [place] Island[place] PCP Marital Status Single Med Service Internal Medicine Acct# Arrival 11/25/2018 18:20:00 Visit Reason Altered mental status; DEHYDRATION Acuity 3 - Urgent LOS 000 16:01 Depart Date: 00:00 AM Address: [address] [address] Comment: PROVIDER INFORMATION Provider Role Assigned Unassigned JENNY VALVERDE APRN ED Physician 11/25/2018 18:54:10 11/25/2018 23:36:17 YESI UNGER, SENIOR MOBILE DEVELOPER Nurse 11/25/2018 18:56:38 11/26/2018 02:37:30 Sandra Rubio, SENIOR MOBILE DEVELOPER Nurse 11/25/2018 19:21:26 11/26/2018 09:04:00 Pect, E X ED Physician 11/25/2018 23:36:18 Wendy Rodriges, medication specialist Nurse 11/26/2018 02:37:31 Irene Cooper, SENIOR MOBILE DEVELOPER Nurse 11/26/2018 09:04:01 DIAGNOSIS PHYS DOC NOTES [...]
--- OUTSIDE RECORDS SUMMARY | 2025-08-01 12:47 | XMS_ITS | Clinical Summary ---
Author Organization [facility] Address [address] [place] [address] Care Team Providers Care Accounting Consultant Name Role Phone Mercedes Seaman APRN Primary Care Provider [phone] Allergies Active Allergy Reactions Criticality Noted Date [...] 08/13/2020 6:43 AM EDT Plan of Treatment Upcoming Encounters Date Type Department Care Team (Late st Contact Info) Description 12/11/2025 10:30 AM EST Office Visit [facility] [address] [facility] [address] [place] [address] Clarisa Milligan MD [address] [facility] [address] [place] [address] Health Maintenance Due Date Last Done Comments Annual Gynecologic Pelvic an d Breast Exam 1980 TDAP/TD VACCINES (2 - Tdap) 12/20/2006 12/20/1996 ANNUAL PHYSICAL 11/18/2019 HEPATITIS C SCREENING 11/18/2019 MAMMOGRAM 2022 INFLUENZA VACCINE 06/06/2025 09/08/2022 Pneumococcal Vaccine 0-49 Aged Out 11/30/2018 No longer eligible based on patient's age to complete this topic Medical Devices Implanted Type Area Wirer Helper Device Identifier Shelf Expiration Date Model / Serial / Lot Sut Contrl Tiss Stratafix Spiral Pdo Bidir 1 [id number] - [id number] Implanted:Qty: 1 on 04/15/2020 by Eddie Jenkins MD at [facility] Implant Right: Knee [employer] DIV OF J AND J [id number] / / Comp Fem Triath Ps Bead W/Pa No4 Rt - [id number] Implanted:Qty: 1 on 04/15/2020 by Eddie Jenkins MD at [facility] Implant Right: Knee ALLEN KYLIE 10/13/2024 [id number] / / [id number] Insrt Tib Triath Ps X3 No4 9mm - [id number] Implanted:Qty: 1 on 04/15/2020 by Eddie Jenkins MD at [facility] Implant Right: Knee ALLEN KYLIE 11/29/2023 [id number] / / [id number] Baseplt Tib Triath Tritanium Sz4 - [id number] Implanted:Qty: 1 on 04/15/2020 by Eddie Jenkins MD at [facility] Implant Right: Knee ALLEN KYLIE 12/05/2024 [id number] / / [id number] Pat Triath Tritanium [id number] - [id number] Implanted:Qty: 1 on 04/15/2020 by Eddie Jenkins MD at [facility] Implant Right: Knee ALLEN KYLIE 10/19/2024 [id number] / / [id number] Cap Total Kn Cmtls 4 Pc - [id number] Implanted:Qty: 1 on 04/15/2020 by Eddie Jenkins MD at [facility] Implant Right: Knee ALLEN KYLIE CAPKNCEMEN [id number] / / Insrt Tib Triath Ps X3 No4 9mm - [id number] Implanted:Qty: 1 on 07/02/2020 by Eddie Jenkins MD at [facility] Implant Left: Knee ALLEN KYLIE 08/27/2024 [id number] / / [id number] Pat Triath Tritanium [id number] - [id number] Implanted:Qty: 1 on 07/02/2020 by Eddie Jenkins MD at [facility] Implant Left: Knee ALLEN KYLIE 04/27/2025 [id number] / / [id number] Cap Total Kn Cmtls 4 Pc - [id number] Implanted:Qty: 1 on 07/02/2020 by Eddie Jenkins MD at [facility] Implant Left: Knee ALLEN KYLIE CAPKNCEMEN [id number] / / Sut Contrl Tiss Stratafix Spiral Pdo Bidir 1 [id number] - [id number] Implanted:Qty: 1 on 07/02/2020 by Eddie Jenkins MD at [facility] Implant Left: Knee [employer] DIV OF J AND J [id number] / / Comp Fem Triath Ps Bead W/Pa No4 Lt - [id number] Implanted:Qty: 1 on 07/02/2020 by Eddie Jenkins MD at [facility] Implant Left: Knee ALLEN KYLIE 12/04/2024 [id number] / / [id number] Baseplt Tib Triath Tritanium Sz4 - [id number] Implanted:Qty: 1 on 07/02/2020 by Eddie Jenkins MD at [facility] Implant Left: Knee ALLEN KYLIE 11/30/2024 [id number] / / [id number] Procedures Procedure Name Priority Date/Time Associated Diagnosis Comments SCANNED - LABS 06/18/2025 SCANNED - LABS 06/18/2025 from Last 3 Months Results * LABS SCANNED (06/18/2025) Only the most recent of2 resultswithin the time period is included. [facility] LAB BLOOD ORDERABLES Final Re sult from Last 3 Months Insurance Advance Directives * CPR (Attempt to Resuscitate) [...] Of Support Discussed With: Patient Care Teams Accounting Consultant Relationship Specialty Start Date End Date Mercedes Seaman APRN [address] [place] [address] [place] [address] PCP - General Nurse Practitioner 07/01/25
--- OUTSIDE RECORDS SUMMARY | 2025-08-01 12:47 | XMS_ITS | Encounter Summary ---
Author Organization [employer] ([place], [place], [place], [place]) Address [address] [place] [address] Care Team Providers Care Traffic Clerk Name Role Phone Unavailable Primary Care Provider Unavailabl e Encounter Details Date Type Department Care Team (Late st Contact Info) Description 11/26/2018 Transcribed Document [facility] [place] Family Medicine [address] [place] [address] ProviderBonnie MD [address] [place] [address] Social History Tobacco Use Types [...] - Historical ProviderMD - 11/26/2018 12:48 PM MEDICAL AFFAIRS SPECIALIST Patient: JULIÁN PARR Age: 38 Years Sex: [...] her to present to the ER at [facility]. She states that one year ago she had scan for vaginal bleeding and incidentally found a gallstone. She denies any history of symptoms of biliary colic in the past year. US shows gallstones with probable sludge, no wall thickening. Pt has a past surgical history including appendectomy, laparoscopic gastric bypass (in [place], 8yrs ago), hysterectomy. Review of Systems Complete [...] and concerns. Debbie Lutz MD General Surgery [facility] Problem List/Past Medical History [...] Levaquin, 750 mg, 150 mL, IV Piggyback, K83VLqt morphine, 2 mg, 1 mL, IV Push, Q2H, PRN NaCl 0.9% bolus, 1000 mL, IV Piggyback, 1-Time Pepcid, 20 mg, 1 Tab, Oral, Daily Phenergan, 6.25 mg, 0.25 mL, IntraVENous, Q6H, PRN pneumococcal 23-polyvalent vaccine, 0.5 mL, IntraMuscular, Y49GBhf Zofran, 4 mg, 2 mL, IV Push, [...] 10 11/26/2018 04:16 Alk Phos 153 Units/Liter SD 11/26/2018 04:16 ALT 1322 Units/Liter SD 11/26/2018 04:16 AST 1863 Units/Liter HI 11/26/2018 04:16 Blood Urea Nitrogen 5 mg/dL LOW 11/26/2018 04:16 Glucose Level 82 mg/dL 11/26/2018 04:16 Albumin Level 2.7 Gram/dL LOW 11/26/2018 04:16 Bilirubin Total 0.6 mg/dL 11/26/2018 04:16 Calcium Level 7.4 mg/dL LOW 11/26/2018 04:16 Magnesium Level 2.2 mg/dL 11/25/2018 20:05 Diagnostic Results Radiology Results (Last 48 hours) [id number] -- 11/25/2018 22:24 CR Chest 1 Vw [...]
--- OUTSIDE RECORDS SUMMARY | 2025-08-01 12:47 | XMS_ITS | Encounter Summary ---
Author Organization [employer] ([place], [place], [place], [place]) Address [address] [address] Care Team Providers Care Lard Mixer Name Role Phone Unavailable Primary Care Provider Unavailabl e Encounter Details Date Type Department Care Team (Late st Contact Info) Description 11/25/2018 Transcribed Document [facility] [place] Family Medicine [address] [place] [address] ProviderBonnie MD [address] [place] [address] Social History Tobacco Use Types [...] - Historical ProviderMD - 11/25/2018 6:20 PM MISSION SYSTEMS ENGINEER ED Assessment Entered On: 11/25/2018 19:36 EST [...] Barrier : Medical condition Primary Language : East Timorese Any Spiritual/Cultural Needs or Requests : No [...] exceptions Gastrointestinal Symptoms : Abdominal pain, Nausea LINDA BRADFORD RN - 11/25/2018 19:35 EST Electronically signed by Ceasar Higginbotham Conversion Anesthesiology Medical Doctor Cerner at 02/21/2023 8:15 PM CDT documented in this encounter Plan of Treatment Not on file documented as of this encounter Visit Diagnoses Not on filedocumented in this encounter
--- OUTSIDE RECORDS SUMMARY | 2025-08-01 12:47 | XMS_ITS | Encounter Summary ---
Author Organization [employer] ([place], [place], [place], [place]) Address [address] [place] [address] Care Team Providers Care Quality Assurance Manager Name Role Phone Unavailable Primary Care Provider Unavailabl e Encounter Details Date Type Department Care Team (Late st Contact Info) Description 11/26/2018 Transcribed Document [facility] [place] [address] [place] [address] ProviderBonnie MD [address] [place] [address] Social History Tobacco Use Types [...] - Bonnie ProviderMD - 11/26/2018 10:21 AM ACCOUNTANT CERTIFIED PUBLIC [address] [place] [address] Patient Information Name: JULIÁN PARR [...] Morphology: Abnormal ANC #: 1 K/uL [place] Percent Man: 16 % -- Normal range between ( 4 and 5 ) Baso Percent Man: 1 % -- Normal range between ( 0 and 1 ) Neutrophil Percent Man: 23 % -- Normal range between ( 50 and 65 ) Eos Percent Man: 3 % -- Normal range between ( 0 and 3 ) Anisocytosis: 1+ Platelet Ct Estimate: Adequate [place] Percent Man: 1 % -- Normal range [...] ) Urine Bilirubin Dipstick: Negative Urine Specific [place]: 1.013 -- Normal range between ( 1.005 [...] verify that JULIÁN PARR was seen at [facility] Emergency Department on ,11/26/2018 10:21:34. This [...] along the way. As a healthcare provider, [facility] recommends that you stop smoking. Assistance with quitting is available by contacting 4-169-HONMXimoXiNOW. This is a free resource providing counseling, [...] Electronic Communications Privacy Act 18 U.S.C. ???Sections 3992-0974,?? and contain information intended for the specified [...] sure to sign up for the My [facility] patient portal, which gives you 29/05 access to your medical information ??? including these discharge instructions ??? using your computer, smartphone, or tablet. Just go to [employer] to get started. Questions? Call . Acknowledgment [...]
--- OUTSIDE RECORDS SUMMARY | 2025-08-01 12:47 | XMS_ITS | Encounter Summary ---
Author Organization [employer] ([place], [place], [place], [place]) Address [address] [place] [address] Care Team Providers Care Dental Amalgam Processor Name Role Phone Unavailable Primary Care Provider Unavailabl e Encounter Details Date Type Department Care Team (Late st Contact Info) Description 11/25/2018 Transcribed Document [facility] [place] Family Medicine [address] [place] [address] ProviderBonnie MD [address] [place], [place] [id number] Social History Tobacco Use Types Packs/Day Years Used Date Smoking Tobacco: Never Assessed Comments Unknown Sex and Gender Information Value Date Recorded Sex Assigned at Not on file Legal Sex Female 6:06 PM CDT Gender Identity Not on file Sexual Orientation Not on file documented as of this encounter Miscellaneous Notes * Cerner Conversion Note - Historical ProviderMD - 11/25/2018 7:09 PM INTERNATIONAL MARKETING SPECIALIST Patient: ARGENTINA PARR Age: 38 years Sex: [...] she was recently in the hospital at [facility] and was diagnosed with gallstones and hepatitis [...] Family/ Social History Surgical history: Gastric bypass ([id number]).\.br&T.brdiagnostic lap x6. Comments: 10/18/2017 15:36 - MARQUITA GIBBS RN for endometriosis LEEP ([id number]). tubal ligation. appy. x2., Reviewed as documented [...] EST Height Source Estimated Height Entry Format Irion Height/Length, CHILEAN (ft) 5 ft Height/Length CHILEAN 5 Inch CLINICALHEIGHT 165.1 cm [place] Body Weight 56.59 kg Weight Source, ED Critical estimated dosing weight Weight Entry Format Metric, kilograms Weight METRIC kg 103 kg CLINICALWEIGHT 103 kg Body Surface Area (BSA) 2.09 m2 Body Mass Index 37.8 kg/m2 HI . Oxygen Saturation 11/25/2018 18:35 EST Oxygen Saturation 99 % . General: Alert, no acute distress, ill-appearing. [place] coma scale: Total score: Total score: 15. [...] ED Adult Triage: ED Clinical Reconciliation: ED product safety test engineer: Ruiz Insertion: Lactic Acid Level with Reflex [...] Color Yolie Urine Appearance Clear Urine Specific [place] 1.013 Urine pH Dipstick 6.5 Urine Leukocyte [...] Risk Level 46 or > High Risk [place] Interventions Adequate lighting, Assistive devices within [...] Warm Communication Barrier Medical condition Primary Language Botswanan Information Obtained From Patient, Medical Record Smoking [...] 40 % ALYC # 1 K/uL NA [place] Percent Man 16 % HI Eos Percent Man 3 % Baso Percent Man 1 % [place] Percent Man 1 % RBC Morphology Abnormal [...] air Height Source Estimated Height Entry Format Irion Height/Length, CHILEAN (ft) 5 ft Height/Length CHILEAN 5 Inch CLINICALHEIGHT 165.1 cm [place] Body Weight 56.59 kg Weight Source, ED [...] Radiology results: Radiology Results (Last 48 hours) [id number] -- 11/25/2018 18:20 CT Head WO (11/25/2018 [...]
--- OUTSIDE RECORDS SUMMARY | 2025-08-01 12:47 | XMS_ITS | Encounter Summary ---
Author Organization [employer] ([place], [place], [place], [place]) Address [address] [place] [address] Care Team Providers Care Wire Wrapping Machine Operator Name Role Phone Unavailable Primary Care Provider Unavailabl e Encounter Details Date Type Department Care Team (Late st Contact Info) Description 11/26/2018 Transcribed Document [facility] [place] Family Medicine [address] [place] [address] ProviderBonnie MD [address] [place] [address] Social History Tobacco Use Types [...] - Historical ProviderMD - 11/26/2018 2:39 PM WELDER SHIELDED METAL ARC Pain Assessment Entered On: 12/01/2018 17:48 EST [...]
--- OUTSIDE RECORDS SUMMARY | 2025-08-01 12:47 | XMS_ITS | Encounter Summary ---
Author Organization [employer] ([place], [place], [place], [place]) Address [address] [place] [address] Care Team Providers Care Track Manager Name Role Phone Unavailable Primary Care Provider Unavailabl e Encounter Details Date Type Department Care Team (Late st Contact Info) Description 11/26/2018 Transcribed Document [facility] [place] Family Medicine [address] [place] [address] ProviderBonnie MD [address] [place] [address] Social History Tobacco Use Types [...] - Historical ProviderMD - 11/26/2018 1:37 AM PROJECT CONTROLS SCHEDULER Pain Assessment Entered On: 12/03/2018 3:16 EST [...]
--- OUTSIDE RECORDS SUMMARY | 2025-08-01 12:47 | XMS_ITS | Encounter Summary ---
Author Organization [employer] ([place], [place], [place], [place]) Address [address] [place] [address] Care Team Providers Care Environmental Epidemiologist Name Role Phone Unavailable Primary Care Provider Unavailabl e Encounter Details Date Type Department Care Team (Late st Contact Info) Description 11/26/[address] [facility] [place] [facility] [place] [address] ProviderBonnie MD [address] [place] [address] Social History Tobacco Use Types [...] - Bonnie ProviderMD - 11/26/2018 10:08 AM HR INTERN Patient: ARGENTINA PARR Age: 38 years Sex: Female : 1980 Associated Diagnoses: None Author: RYLEY MUNSON JR, PA-C Basic Information PCP: None Propeller Driven Airplane Mechanic: None Chief Complaint CP, abnormal echo. History of Present Illness Patient is a 38-year-old female with a negative cardiovascular PMH who presented to [facility] with complaints of worsening abdominal pain nausea and vomiting over the past several days. She reports intermittent chest pain with occasional dizziness and a syncopal episode at work. Upon evaluation at [facility] patient was found to [...] mg, 150 mL, 100 mL/Hr, IV Piggyback, X53PZmc NaCl 0.9% bolus: 1,000 mL, 1,000 mL/Hr, [...] 7-10) pneumococcal 23-polyvalent vaccine: 0.5 mL, IntraMuscular, E03YVod Documented Medications Documented Zofran 4 mg oral [...] *PREMIX* 750 mg 150 mL, IV Piggyback, X65EAcy metroNIDAZOLE 500 mg 100 mL, IV Piggyback, Q6H NaCl 0.9% 1,000 mL, IV Piggyback, 1-Time pneumococcal 23-wayne vacc inj 0.5 mL 0.5 mL, IntraMuscular, Y47PVgz Continuous: (1) Dextrose 5% NaCl 0.9% 1,000 [...] Problems Abnormal vaginal bleeding / SNOMED CT 933097222 / Confirmed heavy Anemia / SNOMED CT 937135376 / Confirmed Dyspareunia in female / SNOMED CT 673435657 / Confirmed Endometriosis / SNOMED CT 299408206 / Confirmed Metrorrhagia / SNOMED CT 872021340 / Confirmed, Active Problems (5) Abnormal vaginal [...] Never smoker Past Medical History: Active Endometriosis ([id number]) Family History: CHF-mother Procedure history: Gastric bypass ([id number]).\.br&T.brdiagnostic lap x6. Comments: 10/18/2017 15:36 - MARQUITA GIBBS, ZHANG for endometriosis LEEP ([id number]). tubal ligation. appy. x2. Social History Social [...] of motion, Normal strength. Integumentary: Warm, Dry, [place]. Neurologic: Alert, Oriented. Psychiatric: Cooperative, Appropriate mood [...] 24 Hours) Radiology Results (Last 48 hours) [id number] -- 11/25/2018 22:24 CR Chest 1 Vw [...] 10 PLAN; Obtaining copy of Echo from [facility]. Anemia per primary service. documented in this encounter Plan of Treatment Not on file documented as of this encounter Visit Diagnoses Not on filedocumented in this encounter
--- OUTSIDE RECORDS SUMMARY | 2025-08-01 12:47 | XMS_ITS | Encounter Summary ---
Author Organization [employer] ([place], [place], [place], [place]) Address [address] [place] [address] Care Team Providers Care Voucher Examiner Name Role Phone Unavailable Primary Care Provider Unavailabl e Encounter Details Date Type Department Care Team (Late st Contact Info) Description 11/26/2018 Transcribed Document [facility] [place] [address] [place] [address] ProviderBonnie MD [address] [place] [address] Social History Tobacco Use Types [...] - Historical ProviderMD - 11/26/2018 1:37 AM COAT AGENT Care Management Assessment/Plan Entered On: 11/27/2018 14:56 [...] : 38 yo female pt transferred from [facility] with Hep A+. LFT's from admission [...] - 11/27/2018 14:52 EST Electronically signed by [facility] Conversion Surgical Aides Teacher Cerner at 02/21/2023 8:18 PM CDT documented in this encounter Plan of Treatment Not on file documented as of this encounter Visit Diagnoses Not on filedocumented in this encounter
--- OUTSIDE RECORDS SUMMARY | 2025-08-01 12:47 | XMS_ITS | Encounter Summary ---
Author Organization [employer] ([place], [place], [place], [place]) Address [address] [place] [address] Care Team Providers Care Water Filterer Name Role Phone Unavailable Primary Care Provider Unavailabl e Encounter Details Date Type Department Care Team (Late st Contact Info) Description 11/26/2018 Transcribed Document [facility] [place] [facility] [place] [address] ProviderBonnie MD [address] [id number] Social History Tobacco Use Types Packs/Day Years Used Date Smoking Tobacco: Never Assessed Comments Unknown Sex and Gender Information Value Date Recorded Sex Assigned at Not on file Legal Sex Female 6:06 PM CDT Gender Identity Not on file Sexual Orientation Not on file documented as of this encounter Miscellaneous Notes * Cerner Conversion Note - Bonnie ProviderMD - 11/26/2018 1:41 AM CONSTRUCTION PROJECT ADMINISTRATOR DATE OF ADMISSION: 11/25/2018 PRIMARY CARE PHYSICIAN: [...] The patient came to the ER at [facility] because her symptoms were not getting well. [...] Dict: 11/26/2018 01:41:42 Trans: 11/26/2018 02:34:55 CC1: Lynn Murray M.D. Electronically signed by Sung Higginbotham Conversion Business Applications Manager Cerner at 02/21/2023 8:08 PM CDT documented in this encounter Plan of Treatment Not on file documented as of this encounter Visit Diagnoses Not on filedocumented in this encounter
--- OUTSIDE RECORDS SUMMARY | 2025-08-01 12:47 | XMS_ITS | Encounter Summary ---
Author Organization [employer] ([place], [place], [place], [place]) Address [address] [place] [address] Care Team Providers Care Customer Relations Consultant Name Role Phone Unavailable Primary Care Provider Unavailabl e Encounter Details Date Type Department Care Team (Late st Contact Info) Description 11/26/2018 Transcribed Document [facility] [place] Family Medicine [address] [place] [address] ProviderBonnie MD [address] [place] [address] Social History Tobacco Use Types [...] - Historical ProviderMD - 11/26/2018 10:20 AM MARKETING SERVICES REP ED Discharge Entered On: 11/26/2018 10:20 EST Performed On: 11/26/2018 10:20 EST by CARMINA PAULSON, welding machine assembler Process Patient Disposition : Admit/Observe CARMINA PAULSON RN - 11/26/2018 10:20 EST Admission, ED `Nurse Report (Hand Off) : Called CARMINA PAULSON RN - 11/26/2018 10:20 EST Electronically signed by Neft[facility] Conversion Manufacturing Technology Professor Cerner at 02/21/2023 7:59 PM CDT documented in this encounter Plan of Treatment Not on file documented as of this encounter Visit Diagnoses Not on filedocumented in this encounter
--- OUTSIDE RECORDS SUMMARY | 2025-08-01 12:48 | XMS_ITS | Encounter Summary ---
Author Organization [employer] ([place], [place], [place], [place]) Address [address] [place] [address] Care Team Providers Care Regional Construction Manager Name Role Phone Unavailable Primary Care Provider Unavailabl e Encounter Details Date Type Department Care Team (Late st Contact Info) Description 11/29/2018 Transcribed Document [facility] [place] [address] [place] [address] ProviderBonnie MD [address] [place] [address] Social History Tobacco Use Types [...] - Bonnie ProviderMD - 11/29/2018 2:20 PM HOUSEKEEPING SUPERVISOR HOTEL Patient: JULIÁN PARR Age: 38 years Sex: [...] mg, 150 mL, 100 mL/Hr, IV Piggyback, M31MUze NaCl 0.9% bolus: 1,000 mL, 1,000 mL/Hr, [...] Complete pneumococcal 23-polyvalent vaccine: 0.5 mL, IntraMuscular, S10VZdd potassium chloride Inj Intermittent 10 mEq + [...] *PREMIX* 750 mg 150 mL, IV Piggyback, L60ZYwe metroNIDAZOLE 500 mg 100 mL, IV Piggyback, [...] Problem list: Medical Metrorrhagia / SNOMED CT 658128832 / Confirmed Endometriosis / SNOMED CT 808777278 / Confirmed Dyspareunia in female / SNOMED CT 829278079 / Confirmed Anemia / SNOMED CT 549554614 / Confirmed Abnormal vaginal bleeding / SNOMED CT 213417264 / Confirmed heavy, Active Problems (5) Abnormal [...] (NOV 25) Radiology Results (Last 48 hours) [id number] -- 11/25/2018 22:24 MRI MRCP WO (11/29/2018 09:21) Result: MR ABDOMEN, MRCP PROTOCOLHISTORY: Abdominal pain.TECHNIQUE: Multiplanar MR without contrast using heavily weighted I0eznoegzcf for evaluation of biliary tree.FINDINGS: No intrahepatic [...] gallbladderdisease.3. Recommend hepatobiliary imaging.4. Mild splenomegaly. ACC: [id number] ORDER: Culture Blood DATE: 11/26/2018 01:28 SOURCE: [...] less than 24 Hrs old == ACC: [id number] ORDER: Culture Blood DATE: 11/26/2018 01:28 SOURCE: Blood SITE: Reports Pre 11/29/2018 06:01 No growth at 3 days. Pre 11/28/2018 06:01 No growth at 2 days. Pre 11/27/2018 06:01 No growth at 1 day. Pre 11/26/2018 16:03 Culture less than 24 Hrs old == ACC: [id number] ORDER: Flu A/B Rapid Screen DATE: 11/25/2018 [...] consider Cardiology evaluation if recurrs. Echo from Psychiatric, EF 55%. No immediate CV evaluation indicated per cardiology 6. Anxiety. start Ativan as needed. Gastrointestinal prophylaxis. Pepcid. Deep venous thrombosis prophylaxis. Heparin. Discharge goals: declining lfts, not tolerating PO Time spent: 35 min lfts worsening..continue to trend closely. given worsening LFT's and INR complexity increasing. MRCP reviewed. documented in this encounter Plan of Treatment Not on file documented as of this encounter Visit Diagnoses Not on filedocumented in this encounter
--- OUTSIDE RECORDS SUMMARY | 2025-08-01 12:48 | XMS_ITS | Encounter Summary ---
Author Organization [employer] ([place], [place], [place], [place]) Address [address] [place] [address] Care Team Providers Care Stagecraft Professor Name Role Phone Unavailable Primary Care Provider Unavailabl e Encounter Details Date Type Department Care Team (Late st Contact Info) Description 12/04/2018 Transcribed Document [facility] [place] [address] [place] [address] ProviderBonnie MD [address] [place] [address] Social History Tobacco Use [...] - Historical ProviderMD - 12/04/2018 4:17 PM RETAIL LOSS PREVENTION SPECIALIST Care Management Assessment/Plan Entered On: 12/04/2018 16:18 [...] needs identified. Discharge To Care Management : Home/Residential/Usp or Self Care -01 Lexy Lewis RN - 12/04/2018 16:17 EST Electronically signed by Neftaly, [facility] Conversion X Ray Nurse Cerner at 02/21/2023 8:02 PM CDT documented in this encounter Plan of Treatment Not on file documented as of this encounter Visit Diagnoses Not on filedocumented in this encounter
--- OUTSIDE RECORDS SUMMARY | 2025-08-01 12:48 | XMS_ITS | Encounter Summary ---
Author Organization [email or web address] ([place], [place], [place], [place]) Address [address] [place] [address] Care Team Providers Care Roller Printer Name Role Phone Unavailable Primary Care Provider Unavailabl e Encounter Details Date Type Department Care Team (Late st Contact Info) Description 12/03/2018 Transcribed Document [facility] [place] Family Medicine [address] [place] [address] ProviderBonnie MD [address] [place] [address] Social History Tobacco Use Types [...] - Historical ProviderMD - 12/03/2018 12:04 PM TONGUE PRESSER Nursing Discharge Summary Entered On: 12/03/2018 12:05 EST Performed On: 12/03/2018 12:04 EST by Jackie Alvarez planer mill grader Documentation Patient Disposition, General : Discharge Discharge To : Home with ambulatory/outpatient follow-up Mode Of Departure, General Discharge : Private vehicle, Wheelchair Accompanied By, Discharge : Spouse IV Discontinued : Yes Medications Given to Patient : No Personal Belongings With Patient : Yes Pt's Own Supply of Medications Returned : No Jackie Alvarez RN - 12/03/2018 12:04 EST Prescriptions [...] EST Electronically signed by Neftaly, [facility] Conversion Patient Safety Coordinator Cerner at 02/21/2023 8:13 PM CDT documented in this encounter Plan of Treatment Not on file documented as of this encounter Visit Diagnoses Not on filedocumented in this encounter
--- OUTSIDE RECORDS SUMMARY | 2025-08-01 12:48 | XMS_ITS | Encounter Summary ---
Author Organization [employer] ([place], [place], [place], [place]) Address [address] [place] [address] Care Team Providers Care Harvest Crew Supervisor Name Role Phone Unavailable Primary Care Provider Unavailabl e Encounter Details Date Type Department Care Team (Late st Contact Info) Description 12/02/[address] [facility] [place] [address] [place] [address] ProviderBonnie MD [address] [place] [address] Social History Tobacco Use Types [...] - Historical ProviderMD - 12/02/2018 6:56 AM SALES AND OPERATIONS TRAINEE Patient: JULIÁN PARR Age: 38 Years Sex: Female : 1980 Subjective no issues overnight, still has nausea this morning but no vomiting. Received Zofran Objective Vitals & Measurements T: 37 ??C HR: 81 (Monitored) RR: 16 BP: 106/70 MAP: 77 SpO2: 98% Physical Exam General: Awake, alert, oriented. No acute distress. Head: Atraumatic, normocephalic Eyes: PERRL, EOMI, Anicteric sclera, [place] conjunctiva Neck: Supple, no mass palpable, no [...] 11 12/02/2018 03:20 Alk Phos 178 Units/Liter [place] 12/02/2018 03:20 ALT 900 Units/Liter [place] 12/02/2018 03:20 AST 503 Units/Liter [place] 12/02/2018 03:20 Blood Urea Nitrogen <3 mg/dL LOW 12/02/2018 03:20 Glucose Level 95 mg/dL 12/02/2018 03:20 Albumin Level 2.4 Gram/dL LOW 12/02/2018 03:20 Bilirubin Total 5.0 mg/dL [place] 12/02/2018 03:20 Calcium Level 7.7 mg/dL LOW 12/02/2018 03:20 Coagulation Results (Current Encounter/Past 24 Hours) PT 13.7 Second(s) [place] 12/02/2018 03:12 INR 1.3 [place] 12/02/2018 03:12 Creatinine Clearance (Current Encounter/Past 24 Hours) Creatinine Level 0.50 mg/dL [facility] 12/02/2018 03:20 Bun/Creatinine 4.0 [facility] 12/02/2018 03:20 Estimated Creatinine Clearance 139.97 mL/Min 12/01/2018 04:29 Diagnostic Results No Radiology Results Found Assessment/Plan Altered mental state R41.82 Altered mental status [id number] Dehydration E86.0, Dehydration E86.0, Dehydration E86.0 Hepatitis [...] when symptoms have subsided Electronically signed by Ceasar Higginbotham Conversion Plant Technical Specialist Cerner at 02/21/2023 8:10 PM CDT documented in this encounter Plan of Treatment Not on file documented as of this encounter Visit Diagnoses Not on filedocumented in this encounter
--- OUTSIDE RECORDS SUMMARY | 2025-08-01 12:48 | XMS_ITS | Encounter Summary ---
Author Organization [employer] ([place], [place], [place], [place]) Address [address] [place] [address] Care Team Providers Care Saxophone Player Name Role Phone Unavailable Primary Care Provider Unavailabl e Encounter Details Date Type Department Care Team (Late st Contact Info) Description 12/04/2018 Transcribed Document [facility] [place] Family Medicine [address] [place] [address] ProviderBonnie MD [address] [place] [address] Social History Tobacco Use Types [...] - Bonnie ProviderMD - 12/04/2018 10:52 AM REPRODUCTION MACHINE LOADER Patient Education Materials Follows: Cholelithiasis Cholelithiasis is also called gallstones. It is a kind of gallbladder disease. The gallbladder is an organ that stores a liquid (bile) that helps you digest fat. Gallstones may not cause symptoms (may be silent gallstones) until they cause a blockage, and then they can cause pain (gallbladder attack). Follow these instructions at home: ??? Take fuhz-zwj-nzrwizb and prescription medicines only as told by [...] 07/09/2017 Elsevier Interactive Patient Education ? 2017 [employer] Infectious Disease Hepatitis A Hepatitis A [...] 11/25/2011 Document Revised: 03/30/2017 Document Reviewed: 01/28/2015 ElseYours Florally Interactive Patient Education ? 2017 [employer] Electronically signed by Ceasar Higginbotham Conversion Railroad Car Cleaning Supervisor Cerner at 02/21/2023 8:10 PM CDT documented in this encounter Plan of Treatment Not on file documented as of this encounter Visit Diagnoses Not on filedocumented in this encounter
--- OUTSIDE RECORDS SUMMARY | 2025-08-01 12:48 | XMS_ITS | Encounter Summary ---
Author Organization [employer] ([place], [place], [place], [place]) Address [address] [place] [address] Care Team Providers Care Director Design Name Role Phone Unavailable Primary Care Provider Unavailabl e Encounter Details Date Type Department Care Team (Late st Contact Info) Description 12/04/2018 Transcribed Document [facility] [place] Family Medicine [address] [place] [address] ProviderBonnie MD [address] [place] [address] Social History Tobacco Use Types [...] Bonnie Poole MD - 12/04/2018 10:44 AM SODA JERKER [address] [place] [address] Patient Copy Patient Information: Name: JULIÁN PARR Current Date: 12/04/2018 10:44:08 : 1980 Patient Address: [address] [place] [address] Patient Attending Physician: LINDA JAQUEZ II, MD-INT Primary Care Provider: Primary Care Provider Phone: Discharge Diagnosis: Weight on Admission: 226 lb, 10 oz Comment: Follow-up Instructions: With: Address: When: Follow up with primary care provider Within 1 week Comments: Follow up in 1 week With: Address: [place]: [place] [address] [place] [address]. [address] [place] [id number] Comments: follow up as needed for any gallbladder problems Discharge Instructions: Diet after Discharge: GI soft/Low residue/Low fiber Activity after Discharge: As tolerated, No strenuous activities Driving after Discharge: Do not drive Showering/Bathing:May shower Immunizations Documented During Stay: pneumococcal 23-polyvalent vaccine 11/30/2018 Heart Failure Discharge Instructions (if any): Stroke Related Discharge Instructions (if any): Warfarin Related Discharge Instructions (if any): Final Medication List: [facility], [address] [facility] [address] [place], [place] [id number], [phone] ondansetron (Zofran 4 mg oral tablet) 1 [...] 11/25/2011 Document Revised: 03/30/2017 Document Reviewed: 01/28/2015 V[employer]ift Interactive Patient Education ? 2017 [employer] Cholelithiasis Cholelithiasis is also called gallstones. It is a kind of gallbladder disease. The gallbladder is an organ that stores a liquid (bile) that helps you digest fat. Gallstones may not cause symptoms (may be silent gallstones) until they cause a blockage, and then they can cause pain (gallbladder attack). Follow these instructions at home: ??? Take waye-use-ujjghld and prescription medicines only as told by [...] 04/10/2009 Document Revised: 07/09/2017 Document Reviewed: 07/09/2017 ElseCreditCardsOnline Interactive Patient Education ? 2017 [employer]. Medication Leaflets: promethazine (oral) (pro METH a zeen) Phenergan What is the most important information I should know about promethazine? Promethazine should not be given to a child younger than 2 years old. Promethazine can cause severe breathing problems or in very young children. What is promethazine? Promethazine is in a group of drugs called phenothiazines (CATG-hs-LCPT-a-zeens). It works by changing the actions of [...] may report side effects to FDA at 7-103-BTR-9271. What other drugs will affect promethazine? Using this medicine with other drugs that make you sleepy or slow your breathing can cause dangerous or life-threatening side effects. Ask your doctor before taking promethazine with a sleeping pill, narcotic pain medicine, muscle relaxer, or medicine for anxiety, depression, or seizures. Other drugs may interact with promethazine, including prescription and zhdi-dkp-goudhow medicines, vitamins, and herbal products. Tell each [...] to ensure that the information provided by [employer]. ('Multum') is accurate, up-to-date, and complete, but no guarantee is made to that effect. Drug information contained herein may be time sensitive. [employer] information has been compiled for use by healthcare practitioners and consumers in the [place] and therefore [employer] does not warrant that uses outside of the [place] are appropriate, unless specifically indicated otherwise. [employer]The[employer]ates.[employer]s drug information does not endorse drugs, diagnose patients or recommend therapy. [employer] drug information is an informational resource designed [...] effective or appropriate for any given patient. [employer] does not assume any responsibility for any aspect of healthcare administered with the aid of information [employer] provides. The information contained herein is not intended to cover all possible uses, directions, precautions, warnings, drug interactions, allergic reactions, or adverse effects. If you have questions about the drugs you are taking, check with your doctor, nurse or pharmacist. Copyright 3634-3394 [employer]. Version: 6.02. Revision Date: 08/20/2015. ondansetron (oral) (on CHRISTIANO se gaustín) aMrycarmen, Zofran ODT, Lia What is the most [...] may report side effects to FDA at 6-333-NKC-2476. What other drugs will affect ondansetron? Ondansetron [...] interact with ondansetron. This includes prescription and xiry-aop-ouajvon medicines, vitamins, and herbal products. Give a [...] to ensure that the information provided by [employer]. ('Multum') is accurate, up-to-date, and complete, but no guarantee is made to that effect. Drug information contained herein may be time sensitive. L[employer]ly information has been compiled for use by healthcare practitioners and consumers in the [place] and therefore [employer] does not warrant that uses outside of the [place] are appropriate, unless specifically indicated otherwise. [employer]'s drug information does not endorse drugs, diagnose patients or recommend therapy. [employer]s drug information is an informational resource designed [...] effective or appropriate for any given patient. [employer] does not assume any responsibility for any aspect of healthcare administered with the aid of information [employer] provides. The information contained herein is not intended to cover all possible uses, directions, precautions, warnings, drug interactions, allergic reactions, or adverse effects. If you have questions about the drugs you are taking, check with your doctor, nurse or pharmacist. Copyright 9192-1088 [employer]. Version: 13.01. Revision Date: 08/26/2016. CIGARETTE SMOKING: The facts are clear, cigarette smoking will shorten your life. Smoking can cause many illnesses along the way. As a healthcare provider, we recommend that you stop smoking. Assistance with quitting is available by contacting 6-779-AEDV-NOW. This is a free resource providing counseling, [...] Be sure to sign up for the [employer] patient portal, which gives you 29/05 access to your medical information ??? including these discharge instructions ??? using your computer, smartphone, or tablet. Just go to [employer] to get started. Questions? Call . [facility] would like to thank you for allowing us to assist you with your healthcare needs. WILMAR Green KELLY NICOLE, (or pharmaceutical specialty representative) have received the above patient education materials/instructions and have verbalized understanding: Patient Signature _ Date/Time Patient Range Conservationist Signature (if needed) Date/Time Clinician/Hospital Range Conservationist Signature (if needed) Date/Time documented in this encounter Plan of Treatment Not on file documented as of this encounter Visit Diagnoses Not on filedocumented in this encounter
--- OUTSIDE RECORDS SUMMARY | 2025-08-01 12:48 | XMS_ITS | Encounter Summary ---
Author Organization [employer] ([place], [place], [place], [place]) Address [address] [place] [address] Care Team Providers Care Director Market Research Name Role Phone Unavailable Primary Care Provider Unavailabl e Encounter Details Date Type Department Care Team (Late st Contact Info) Description 12/03/2018 Transcribed Document [facility] [place] Family Medicine [address] [place] [address] ProviderBonnie MD [address] [place] [address] Social History Tobacco Use Types [...] - Historical Provider, - 12/03/2018 12:06 PM DIRECT SALES PROFESSIONAL Discharge Instructions Entered On: 12/03/2018 12:10 EST Performed On: 12/03/2018 12:06 EST by Jackie Alvarez RN DC Instructions HWD Stroke/TIA Discharge Ins : N/A Heart Failure Discharge Ins : N/A Warfarin Discharge Ins : N/A Jackie Avlarez RN - 12/03/2018 12:06 EST Diet After Discharge : GI soft/Low residue/Low fiber Nyla May RN - 12/04/2018 10:42 EST Activity After Discharge : As tolerated, No strenuous activities Driving After Discharge : Do not drive Showering/Bathing : May shower Jackie Alvarez RN - 12/03/2018 12:06 EST Electronically signed by Neftaly [facility] Conversion Health Care Assistant Cerner at 02/21/2023 8:14 PM CDT documented in this encounter Plan of Treatment Not on file documented as of this encounter Visit Diagnoses Not on filedocumented in this encounter
--- OUTSIDE RECORDS SUMMARY | 2025-08-01 12:48 | XMS_ITS | Encounter Summary ---
Author Organization [employer] ([place], [place], [place], [place]) Address [address] [place] [address] Care Team Providers Care Heel Seat Fitter Name Role Phone Unavailable Primary Care Provider Unavailabl e Encounter Details Date Type Department Care Team (Late st Contact Info) Description 12/03/2018 Transcribed Document [facility] Family Medicine [address] [place] [address] ProviderBonnie MD [address] [place] [address] Social History Tobacco Use Types [...] - Historical ProviderMD - 12/03/2018 8:56 AM MAT LINKER PLEASE MODIFY BEFORE SIGNING CLINICAL DOCUMENTATION CLARIFICATION [...] MD order- Hepatic Function Panel Q AM CDS/Manager Gyn Signature: Marleny Neri RN Phone #:[phone] This is a permanent part of the Medical Record documented in this encounter Plan of Treatment Not on file documented as of this encounter Visit Diagnoses Not on filedocumented in this encounter
--- OUTSIDE RECORDS SUMMARY | 2025-08-01 12:48 | XMS_ITS | Clinical Summary ---
Author Organization [employer] ([place], [place], [place], [place]) Address [address] [place] [address] Care Team Providers Care Director Corporate Sales Name Role Phone Unavailable Primary Care Provider [...]
--- OUTSIDE RECORDS SUMMARY | 2025-08-01 12:48 | XMS_ITS | Encounter Summary ---
Author Organization [employer] ([place], [place], [place], [place]) Address [address] [place] [address] Care Team Providers Care Senior Information Security Engineer Name Role Phone Unavailable Primary Care Provider Unavailabl e Encounter Details Date Type Department Care Team (Late st Contact Info) Description 11/25/2018 Transcribed Document [facility] [place] Family Medicine [address] [place] [address] ProviderBonnie MD [address] [place] [address] Social History Tobacco Use Types [...] - Historical ProviderMD - 11/25/2018 7:16 PM [employer] [place] ED POC - URINE HCG Entered On: 11/25/2018 19:42 EST Performed On: 11/25/2018 19:42 EST by Sandra Rubio RN Point of Care Urine HCG HCG Result : Negative Internal Control Line Present : Yes Sandra Rubio RN - 11/25/2018 19:42 EST documented in this encounter Plan of Treatment Not on file documented as of this encounter Visit Diagnoses Not on filedocumented in this encounter
--- OUTSIDE RECORDS SUMMARY | 2025-08-01 12:48 | XMS_ITS | Encounter Summary ---
Author Organization [employer] ([place], [place], [place], [place]) Address [address] [place] [address] Care Team Providers Care Program Counselor Name Role Phone Unavailable Primary Care Provider Unavailabl e Encounter Details Date Type Department Care Team (Late st Contact Info) Description 11/30/2018 Transcribed Document [facility] [place] Family Medicine [address] [place] [address] ProviderBonnie MD [address] [place] [address] Social History Tobacco Use Types [...] - Bonnie ProviderMD - 11/30/2018 3:24 PM WAREHOUSE SHIPPING SUPERVISOR Patient: JULIÁN PARR Age: 38 years Sex: [...] mg, 150 mL, 100 mL/Hr, IV Piggyback, [id number] NaCl 0.9% bolus: 1,000 mL, 1,000 mL/Hr, [...] *PREMIX* 750 mg 150 mL, IV Piggyback, [id number] metroNIDAZOLE 500 mg 100 mL, IV Piggyback, [...] Problem list: Medical Metrorrhagia / SNOMED CT 102550486 / Confirmed Endometriosis / SNOMED CT 028311162 / Confirmed Dyspareunia in female / SNOMED CT 406675084 / Confirmed Anemia / SNOMED CT 542788886 / Confirmed Abnormal vaginal bleeding / SNOMED CT 910278638 / Confirmed heavy, Active Problems (5) Abnormal [...] (NOV 25) Radiology Results (Last 48 hours) [id number] -- 11/25/2018 22:24 MRI MRCP WO (11/29/2018 09:21) Result: MR ABDOMEN, MRCP PROTOCOLHISTORY: Abdominal pain.TECHNIQUE: Multiplanar MR without contrast using heavily weighted P1oewjuymtv for evaluation of biliary tree.FINDINGS: No intrahepatic [...] gallbladderdisease.3. Recommend hepatobiliary imaging.4. Mild splenomegaly. ACC: [id number] ORDER: Culture Blood DATE: 11/26/2018 01:28 SOURCE: [...] less than 24 Hrs old == ACC: [id number] ORDER: Culture Blood DATE: 11/26/2018 01:28 SOURCE: Blood SITE: Reports Pre 11/30/2018 06:01 No growth at 4 days. Pre 11/29/2018 06:01 No growth at 3 days. Pre 11/28/2018 06:01 No growth at 2 days. Pre 11/27/2018 06:01 No growth at 1 day. Pre 11/26/2018 16:03 Culture less than 24 Hrs old == ACC: [id number] ORDER: Flu A/B Rapid Screen DATE: 11/25/2018 [...] consider Cardiology evaluation if recurrs. Echo from [facility], EF 55%. No immediate CV evaluation [...] opinion/recs. Electronically signed by Ceasar Higginbotham Conversion Cutter Operator Asbestos Shingle Kadiener at 02/21/2023 8:06 PM CDT documented in this encounter Plan of Treatment Not on file documented as of this encounter Visit Diagnoses Not on filedocumented in this encounter
--- OUTSIDE RECORDS SUMMARY | 2025-08-01 12:48 | XMS_ITS | Encounter Summary ---
Author Organization [employer] ([place], [place], [place], [place]) Address [address] [place] [address] Care Team Providers Care Manufacturing Controller Name Role Phone Unavailable Primary Care Provider Unavailabl e Encounter Details Date Type Department Care Team (Late st Contact Info) Description 12/03/2018 Transcribed Document [facility] [place] Family Medicine [address] [place] [address] ProviderBnonie MD [address] [id number] Social History Tobacco Use Types Packs/Day Years Used Date Smoking Tobacco: Never Assessed Comments Unknown Sex and Gender Information Value Date Recorded Sex Assigned at Not on file Legal Sex Female 6:06 PM CDT Gender Identity Not on file Sexual Orientation Not on file documented as of this encounter Miscellaneous Notes * Cerner Conversion Note - Historical ProviderMD - 12/03/2018 7:42 AM DRUG ROOM CLERK Patient: JULIÁN PARR Age: 38 Years Sex: Female : 1980 Subjective continues to report nausea and vomiting Objective Vitals & Measurements T: 37.4 ??C HR: 85 (Monitored) RR: 16 BP: 107/68 MAP: 76 SpO2: 95% Physical Exam General: Awake, alert, oriented. No acute distress. Head: Atraumatic, normocephalic Eyes: PERRL, EOMI, Anicteric sclera, [place] conjunctiva Neck: Supple, no mass palpable, no [...] 14 12/03/2018 05:05 Alk Phos 187 Units/Liter [place] 12/03/2018 05:05 ALT 672 Units/Liter [place] 12/03/2018 05:05 AST 389 Units/Liter [place] 12/03/2018 05:05 Blood Urea Nitrogen 3 mg/dL LOW 12/03/2018 05:05 Glucose Level 84 mg/dL 12/03/2018 05:05 Albumin Level 2.4 Gram/dL LOW 12/03/2018 05:05 Bilirubin Total 5.3 mg/dL [place] 12/03/2018 05:05 Calcium Level 8.0 mg/dL LOW 12/03/2018 05:05 Coagulation Results (Current Encounter/Past 24 Hours) PT 13.1 Second(s) [place] 12/03/2018 04:43 INR 1.2 [place] 12/03/2018 04:43 Creatinine Clearance (Current Encounter/Past 24 Hours) Creatinine Level 0.50 mg/dL [facility] 12/03/2018 05:05 Bun/Creatinine 6.0 LOW 12/03/2018 05:05 Diagnostic Results No Radiology Results Found Assessment/Plan Altered mental state R41.82 Altered mental status [id number] Dehydration E86.0, Dehydration E86.0, Dehydration E86.0 Hepatitis [...] symptoms have subsided Electronically signed by Neftaly [facility] Conversion Geriatric Nurse Practitioner Cerner at 02/21/2023 8:16 PM CDT documented in this encounter Plan of Treatment Not on file documented as of this encounter Visit Diagnoses Not on filedocumented in this encounter
--- OUTSIDE RECORDS SUMMARY | 2025-08-01 12:48 | XMS_ITS | Encounter Summary ---
Author Organization [employer] ([place], [place], [place], [place]) Address [address] [place] [address] Care Team Providers Care Casserole Preparer Name Role Phone Unavailable Primary Care Provider Unavailabl e Encounter Details Date Type Department Care Team (Late st Contact Info) Description 12/04/2018 Transcribed Document [facility] [place] Family Medicine [facility] [place] [address] ProviderBonnie MD [address] [place] [address] Social History Tobacco Use [...] - Bonnie ProviderMD - 12/04/2018 7:49 AM MUSIC INTERNSHIP Patient: JULIÁN PRAR Age: 38 Years Sex: Female : 1980 [...] Altered mental state R41.82 Altered mental status [id number] Dehydration E86.0, Dehydration E86.0, Dehydration E86.0 Hepatitis A B15.9 Orders: ondansetron, 1 Tab, Oral, Tab, Q8H, PRN Nausea/Vomiting, # 30 Tab, 0 Refill(s), Pharmacy: [facility] promethazine, 1 Tab, Oral, Tab, Q8H, PRN for nausea/vomiting, # 30 Tab, 0 Refill(s), Pharmacy: [facility] Discharge Discharge Activity Discharge Diet Discharge [...] 10 12/04/2018 04:25 Alk Phos 218 Units/Liter [place] 12/04/2018 04:25 ALT 523 Units/Liter [place] 12/04/2018 04:25 AST 303 Units/Liter [place] 12/04/2018 04:25 Blood Urea Nitrogen 5 mg/dL LOW 12/04/2018 04:25 Glucose Level 100 mg/dL 12/04/2018 04:25 Albumin Level 2.4 Gram/dL LOW 12/04/2018 04:25 Bilirubin Total 4.8 mg/dL [place] 12/04/2018 04:25 Calcium Level 7.9 mg/dL LOW 12/04/2018 04:25 Coagulation Results (Current Encounter/Past 24 Hours) PT 12.9 Second(s) [place] 12/04/2018 03:52 INR 1.2 [place] 12/04/2018 03:52 Creatinine Clearance (Current Encounter/Past 24 Hours) Creatinine Level 0.60 mg/dL 12/04/2018 04:25 Bun/Creatinine 8.3 12/04/2018 04:25 Estimated Creatinine Clearance 116.64 mL/Min 12/04/2018 04:25 Blood Products No qualifying data available. documented in this encounter Plan of Treatment Not on file documented as of this encounter Visit Diagnoses Not on filedocumented in this encounter
--- OUTSIDE RECORDS SUMMARY | 2025-08-01 12:48 | XMS_ITS | Encounter Summary ---
Author Organization [employer] ([place], [place], [place], [place]) Address [address] [place] [address] Care Team Providers Care Mortgage Assistant Name Role Phone Unavailable Primary Care Provider Unavailabl e Encounter Details Date Type Department Care Team (Late st Contact Info) Description 12/05/[address] [facility] [place] Family Medicine [address] [place] [address] ProviderBonnie MD [address] [place] [address] Social History Tobacco Use Types [...] - Historical ProviderMD - 12/05/2018 11:06 AM ANIMAL HUSBANDRY TECHNICIAN Post Visit Phone Call Entered On: 12/05/2018 11:07 EST Performed On: 12/05/2018 11:06 EST by CHINEDU RUGGIERO, RN Post Visit Phone Call Post Visit Phone Call History : First call, Left message CHINEDU RUGGIERO RN - 12/05/2018 11:06 EST documented in this encounter Plan of Treatment Not on file documented as of this encounter Visit Diagnoses Not on filedocumented in this encounter
--- OUTSIDE RECORDS SUMMARY | 2025-08-01 12:48 | XMS_ITS | Encounter Summary ---
Author Organization [employer] ([place], [place], [place], [place]) Address [address] [place] [address] Care Team Providers Care Photography And Prints Curator Name Role Phone Unavailable Primary Care Provider Unavailabl e Encounter Details Date Type Department Care Team (Late st Contact Info) Description 12/03/2018 Transcribed Document [facility] [place] Family Medicine [address] [place] [address] ProviderBonnie MD [address] [place] [address] Social History Tobacco Use Types [...] - Historical ProviderMD - 12/03/2018 4:47 PM TRUCK SPOTTER Care Management Assessment/Plan Entered On: 12/03/2018 16:48 [...] - 12/03/2018 16:47 EST Electronically signed by [facility], [facility] Conversion Quality Assurance Clerk Cerner at 02/21/2023 8:07 PM CDT documented in this encounter Plan of Treatment Not on file documented as of this encounter Visit Diagnoses Not on filedocumented in this encounter
--- OUTSIDE RECORDS SUMMARY | 2025-08-01 12:48 | XMS_ITS | Referral Summary ---
Author Organization [employer] ([place], [place], [place], [place]) Address [address] [facility] [place] [address] Care Team Providers Care Proced Tech Name Role Phone Unavailable Primary Care Provider [...]
--- OUTSIDE RECORDS SUMMARY | 2025-08-01 12:48 | XMS_ITS | Encounter Summary ---
Author Organization [employer] ([place], [place], [place], [place]) Address [address] [place] [address] Care Team Providers Care Valve Tester Name Role Phone Unavailable Primary Care Provider Unavailabl e Encounter Details Date Type Department Care Team (Late st Contact Info) Description 11/29/2018 Transcribed Document [facility] [place] [address] [place] [address] ProviderBonnie MD [address] [place] [address] Social History Tobacco Use Types [...] - Historical ProviderMD - 11/29/2018 5:00 PM GROUP CIO Chart Check - Review Order Profile Entered On: 11/29/2018 18:40 EST Performed On: 11/29/2018 17:00 EST by MADYSON TEAGUE RN Chart Check Chart Reviewed Date and Time : 11/29/2018 18:40 EST Powerplans Initiated/Discontinued as Appropriate : Yes All Active Orders Reviewed : Yes MADYSON TEAGUE RN - 11/29/2018 18:39 EST documented in this encounter Plan of Treatment Not on file documented as of this encounter Visit Diagnoses Not on filedocumented in this encounter
--- OUTSIDE RECORDS SUMMARY | 2025-08-01 12:48 | XMS_ITS | Encounter Summary ---
Author Organization [employer] ([place], [place], [place], [place]) Address [address] [place] [address] Care Team Providers Care Senior Linux Systems Engineer Name Role Phone Unavailable Primary Care Provider Unavailabl e Encounter Details Date Type Department Care Team (Late st Contact Info) Description 11/26/2018 Transcribed Document [facility] [place] Family Medicine [address] [place] [address] ProviderBonnie MD [address] [place] [address] Social History Tobacco Use Types [...] - Historical ProviderMD - 11/26/2018 4:30 AM FITTING ROOM CHECKER ED Event Note Entered On: 11/26/2018 5:30 EST Performed On: 11/26/2018 4:30 EST by Wendy Rodriges Rn ED Event Note ED Description of Event : Pt placed in hospital bed. No distress noted at this time. Will continue to monitor. Wendy Rodriges Rn - 11/26/2018 5:28 EST Electronically signed by Ceasar Higginbotham Conversion Automatic Punch Press Operator Cerner at 02/21/2023 8:06 PM CDT documented in this encounter Plan of Treatment Not on file documented as of this encounter Visit Diagnoses Not on filedocumented in this encounter
--- OUTSIDE RECORDS SUMMARY | 2025-08-01 12:48 | XMS_ITS | Encounter Summary ---
Author Organization [employer] ([place], [place], [place], [place]) Address [address] [place] [address] Care Team Providers Care Import Customer Service Manager Name Role Phone Unavailable Primary Care Provider Unavailabl e Encounter Details Date Type Department Care Team (Late st Contact Info) Description 11/30/2018 Transcribed Document [facility] [place] Family Medicine [address] [place] [address] ProviderBonnie MD [address] [place] [address] Social History Tobacco Use Types [...] - Historical ProviderMD - 11/30/2018 4:28 PM METHODS TIME ANALYST Patient: JULIÁN PARR Age: 38 Years Sex: [...] with a bariatrician since moving here from [place] approximately 2 years ago. She no longer [...] copy of her labs on discharge from [facility] on 11/22/2018 that showed a total [...] worsening encephalopathy and INR >1.5 Dr Estrada global professional for the weekend, please call if needed. [...] mL, Nebulized Inhalation , Q6H, PRN ergocalciferol, 03168 Units, 1 Cap, Oral, Weekly Flagyl, 500 mg, 100 mL, IV Piggyback, Q6H heparin, 5000 Units, 1 mL, SubCutaneous, Q8H hydrALAZINE, 10 mg, 0.5 mL, IV Push, Q6H, PRN lactulose, 20 Gram, 30 mL, Oral, Q8H Levaquin, 750 mg, 150 mL, IV Piggyback, [id number] morphine, 2 mg, 1 mL, IV Push, [...] >60 mL/min/1.73m2 11/30/2018 04:20 A/G Ratio 0.9 [facility] 11/30/2018 04:20 Protein Total 5.1 Gram/dL LOW 11/30/2018 04:20 Creatinine Level 0.40 mg/dL LOW 11/30/2018 04:20 Globulin 2.7 Gram/dL 11/30/2018 04:20 Sodium Level 142 mmol/L 11/30/2018 04:20 Potassium Level 3.4 mmol/L LOW 11/30/2018 04:20 Chloride Level 110 mmol/L 11/30/2018 04:20 Carbon Dioxide Level 23 mmol/L 11/30/2018 04:20 Anion Gap 11/30/2018 04:20 Alk Phos 173 Units/Liter [place] 11/30/2018 04:20 ALT 1495 Units/Liter [place] 11/30/2018 04:20 AST 1227 Units/Liter [place] 11/30/2018 04:20 Blood Urea Nitrogen 3 mg/dL [facility] 11/30/2018 04:20 Glucose Level 91 mg/dL 11/30/2018 04:20 Albumin Level 2.4 Gram/dL [facility] 11/30/2018 04:20 Bilirubin Total 3.8 mg/dL [place] 11/30/2018 04:20 Calcium Level 7.8 mg/dL [facility] 11/30/2018 04:20 Magnesium Level 1.8 mg/dL 11/30/2018 04:20 Coagulation Results (Current Encounter/Past 24 Hours) PT 14.0 Second(s) [place] 11/30/2018 05:11 INR 1.3 [place] 11/30/2018 03:58 Creatinine Clearance (Current Encounter/Past 24 Hours) Creatinine Level 0.40 mg/dL [facility] 11/30/2018 04:20 Bun/Creatinine 7.5 LOW 11/30/2018 04:20 Estimated Creatinine Clearance 174.96 mL/Min 11/30/2018 04:20 Diagnostic Results Result Type: MRI MRCP WO Result Date: November 29, 2018 9:21 EST Result Status: Auth (Verified) Result Title/Subject: MRI MRCP WO Signed By/Author: DAYLIN RAUSCH MD-RAD on November 29, 2018 10:04 EST Verified By: DAYLIN RAUSCH MD-RAD on November 29, 2018 13:21 EST Encounter info: [id number], [facility], Inpatient, 11/25/2018 - * Final Report * [...] 4. Mild splenomegaly. Electronically signed by Neftaly [facility] Conversion Manager Insurance Cerner at 02/21/2023 8:14 PM CDT documented in this encounter Plan of Treatment Not on file documented as of this encounter Visit Diagnoses Not on filedocumented in this encounter
--- OUTSIDE RECORDS SUMMARY | 2025-08-01 12:48 | XMS_ITS | Encounter Summary ---
Author Organization [employer] ([place], [place], [place], [place]) Address [address] [place] [address] Care Team Providers Care Manager Search Name Role Phone Unavailable Primary Care Provider Unavailabl e Encounter Details Date Type Department Care Team (Late st Contact Info) Description 12/03/2018 Transcribed Document [facility] [place] [address] [place] [address] ProviderBonnie MD [address] [place] [address] Social History Tobacco Use Types [...] - Bonnie ProviderMD - 12/03/2018 12:11 PM ONBOARDING SPECIALIST [address] [place], [place] [id number] Patient Copy Patient Information: Name: JULIÁN PARR Current Date: 12/03/2018 12:11:17 : 1980 Patient Address: [place] [address] Patient Attending Physician: LINDA JAQUEZ II, MD-INT Primary Care Provider: Primary Care Provider Phone: Discharge Diagnosis: Weight on Admission: 226 lb, 10 oz Comment: Follow-up Instructions: With: Address: When: CHINTAN ALMAZAN MD [address] [place] [address]. [address] [place] [address] Comments: follow up as needed [...] 11/25/2011 Document Revised: 03/30/2017 Document Reviewed: 01/28/2015 [employer] Patient Education ? 2017 [employer] Cholelithiasis Cholelithiasis is also called gallstones. It is a kind of gallbladder disease. The gallbladder is an organ that stores a liquid (bile) that helps you digest fat. Gallstones may not cause symptoms (may be silent gallstones) until they cause a blockage, and then they can cause pain (gallbladder attack). Follow these instructions at home: ??? Take pwur-cpv-agtxfak and prescription medicines only as told by [...] Assistance with quitting is available by contacting 4-244-LQNQ-NOW. This is a free resource providing counseling, [...] Be sure to sign up for the [employer] patient portal, which gives you 29/05 access to your medical information ??? including these discharge instructions ??? using your computer, smartphone, or tablet. Just go to [email or web address] to get started. Questions? Call . [facility] would like to thank you for allowing us to assist you with your healthcare needs. WILMAR Green KELLY NICOLE, (or c s s representative) have received the above patient education materials/instructions and have verbalized understanding: Patient Signature _ Date/Time Patient Director Social Welfare Signature (if needed) Date/Time Clinician/Hospital Director Social Welfare Signature (if needed) Date/Time documented in this encounter Plan of Treatment Not on file documented as of this encounter Visit Diagnoses Not on filedocumented in this encounter
--- OUTSIDE RECORDS SUMMARY | 2025-08-01 12:48 | XMS_ITS | Encounter Summary ---
Author Organization [employer] ([place], [place], [place], [place]) Address [address] [place] [address] Care Team Providers Care Submersible Pilot Name Role Phone Unavailable Primary Care Provider Unavailabl e Encounter Details Date Type Department Care Team (Late st Contact Info) Description 11/30/2018 Transcribed Document [facility] [place] [address] [place] [address] ProviderBonnie MD [address] [place] [address] Social History Tobacco Use Types [...] - Historical ProviderMD - 11/30/2018 2:00 AM URBAN PLANNING TEACHER Bilingual Teacher Aide Details Entered On: 11/30/2018 3:10 EST Performed [...] Rocky Rodriguez, Rn - 11/30/2018 3:10 EST Electronically signed by Ceasar Higginbotham Conversion District Plant Superintendent Cerner at 02/21/2023 8:02 PM CDT documented in this encounter Plan of Treatment Not on file documented as of this encounter Visit Diagnoses Not on filedocumented in this encounter
--- OUTSIDE RECORDS SUMMARY | 2025-08-01 12:48 | XMS_ITS | Encounter Summary ---
Author Organization [employer] ([place], [place], [place], [place]) Address [address] [place] [address] Care Team Providers Care Senior Ios Software Engineer Name Role Phone Unavailable Primary Care Provider Unavailabl e Encounter Details Date Type Department Care Team (Late st Contact Info) Description 11/25/2018 Transcribed Document [facility] [place] [address] [place] [address] ProviderBonnie MD [address] [place] [address] Social History Tobacco Use Types [...] - Historical ProviderMD - 11/25/2018 6:20 PM HIM TECH ED Triage Entered On: 11/25/2018 18:44 EST Performed On: 11/25/2018 18:35 EST by Tien Augustin, SHOP WELDER Triage Across the Room Triage Date/Time : [...] : 3 - Urgent Tracking Group : [facility] ED Tien Augustin, RN - 11/25/2018 18:35 [...] EST) Problems(Active) Abnormal vaginal bleeding (SNOMED CT :243615537 ) Name of Problem: Abnormal vaginal bleeding ; Recorder: MARQUITA GIBBS RN; Confirmation: Confirmed ; Classification: Medical ; Code: [id number] ; Contributor System: [employer] ; Last Updated: 10/18/2017 15:33 EST ; Life Cycle Date: 10/18/2017 ; Life Cycle Status: Active ; Vocabulary: SNOMED CT ; Comments: 10/18/2017 15:33 - MARQUITA GIBBS RN heavy Anemia (SNOMED CT :004172512 ) Name of Problem: Anemia ; Recorder: MARQUITA GIBBS RN; Confirmation: Confirmed ; Classification: Medical ; Code: [id number] ; Contributor System: PowerChart ; Last Updated: 10/18/2017 15:31 EST ; Life Cycle Date: 10/18/2017 ; Life Cycle Status: Active ; Vocabulary: SNOMED CT Dyspareunia in female (SNOMED CT :717474728 ) Name of Problem: Dyspareunia in female ; Recorder: MARQUITA GIBBS RN; Confirmation: Confirmed ; Classification: Medical ; Code: [id number] ; Contributor System: PowerChart ; Last Updated: 10/18/2017 15:32 EST ; Life Cycle Date: 10/18/2017 ; Life Cycle Status: Active ; Vocabulary: SNOMED CT Endometriosis (SNOMED CT :235111656 ) Name of Problem: Endometriosis ; Recorder: DEJA FITZPATRICK RN; Confirmation: Confirmed ; Classification: Medical ; Code: 110673376 ; Contributor System: PowerChart ; Last Updated: 10/06/2017 9:33 EST ; Life Cycle Date: 10/06/2017 ; Life Cycle Status: Active ; Vocabulary: SNOMED CT Metrorrhagia (SNOMED CT :912830349 ) Name of Problem: Metrorrhagia ; Recorder: MARQUITA GIBBS RN; Confirmation: Confirmed ; Classification: Medical ; Code: [id number] ; Contributor System: [employer]Chart ; Last Updated: 10/18/2017 15:36 EST ; Life Cycle Date: 10/18/2017 ; Life Cycle Status: Active ; Vocabulary: SNOMED CT Diagnoses(Active) Altered mental status Date: 11/25/2018 ; Diagnosis Type: Reason For Visit ; Confirmation: Complaint of ; Clinical Dx: Altered mental status ; Classification: Medical ; Clinical Service: Emergency medicine ; Code: PNED ; Probability: 0 ; Diagnosis Code: [id number] ED Height and Weight Height Source : Estimated Height Entry Format : [place] Height, Feet : 5 ft(Converted to: 152 [...] Body Mass Index : 37.8 kg/m2 (HI) [place] Body Weight (IBW) : 56.59 kg Tien Augustin RN - 11/25/2018 18:35 EST Electronically signed by Neftaly [facility] Conversion Director Vaccine Cerner at 02/21/2023 8:18 PM CDT documented in this encounter Plan of Treatment Not on file documented as of this encounter Visit Diagnoses Not on filedocumented in this encounter
--- OUTSIDE RECORDS SUMMARY | 2025-08-01 12:48 | XMS_ITS | Encounter Summary ---
Author Organization [employer] ([place], [place], [place], [place]) Address [address] [place] [address] Care Team Providers Care Shuttle Car Operator Name Role Phone Unavailable Primary Care Provider Unavailabl e Encounter Details Date Type Department Care Team (Late st Contact Info) Description 12/05/2018 Transcribed Document [facility] [place] Family Medicine [address] [place] [address] ProviderBonnie MD [address], [place] [id number] Social History Tobacco Use Types Packs/Day Years Used Date Smoking Tobacco: Never Assessed Comments Unknown Sex and Gender Information Value Date Recorded Sex Assigned at Not on file Legal Sex Female 6:06 PM CDT Gender Identity Not on file Sexual Orientation Not on file documented as of this encounter Miscellaneous Notes * Cerner Conversion Note - Historical ProviderMD - 12/05/2018 3:38 PM VOCAL MUSIC TEACHER Post Visit Phone Call Entered On: 12/05/2018 15:40 EST Performed On: 12/05/2018 15:38 EST by CHINEDU RUGGIERO RN Post Visit Phone Call Post Visit Phone Call History : First call, Second call, Left message CHINEDU RUGGIERO RN - 12/05/2018 15:38 EST Electronically signed by Neftaly [facility] Conversion General Education Instructor Cerner at 02/21/2023 8:09 PM CDT documented in this encounter Plan of Treatment Not on file documented as of this encounter Visit Diagnoses Not on filedocumented in this encounter
--- OUTSIDE RECORDS SUMMARY | 2025-08-01 12:48 | XMS_ITS | Encounter Summary ---
Author Organization [employer] ([place], [place], [place], [place]) Address [address] [place] [address] Care Team Providers Care Loan Documentation Specialist Name Role Phone Unavailable Primary Care Provider Unavailabl e Encounter Details Date Type Department Care Team (Late st Contact Info) Description 12/06/2018 Transcribed Document [facility] [place] Family Medicine [address] [place] [address] ProviderBonnie MD [address] [place] [address] Social History Tobacco Use Types [...] - Historical ProviderMD - 12/06/2018 9:38 AM BOOK EDITOR Post Visit Phone Call Entered On: 12/06/2018 9:40 EST Performed On: 12/06/2018 9:38 EST by Kanika Sauer Rn Post Visit Phone Call Post Visit Phone Call History : First call, Second call, Third call, Left message Kanika Sauer Rn - 12/06/2018 9:38 EST Electronically signed by Neftaly [facility] Conversion Supervisor Powdered Sugar Cerner at 02/21/2023 8:15 PM CDT documented in this encounter Plan of Treatment Not on file documented as of this encounter Visit Diagnoses Not on filedocumented in this encounter
--- OUTSIDE RECORDS SUMMARY | 2025-08-01 12:48 | XMS_ITS | Encounter Summary ---
Author Organization [employer] ([place], [place], [place], [place]) Address [address] [place] [address] Care Team Providers Care Peel Oven Tender Name Role Phone Unavailable Primary Care Provider Unavailabl e Encounter Details Date Type Department Care Team (Late st Contact Info) Description 11/25/2018 Transcribed Document [facility] [place] Family Medicine [address] [place] [address] ProviderBonnie MD [address], [...] - Historical ProviderMD - 11/25/2018 10:57 PM THIRD COOK Admission History, Adult Entered On: 11/26/2018 10:49 [...] : Patient, Medical Record Primary Language : Greek Preferred Communication Mode : Verbal Communication Barrier [...] Level : 46 or > High Risk Conley Fall Interventions : Adequate lighting, Assistive devices [...] Source : Estimated Height Entry Format : [place] Height, Feet : 5 ft(Converted to: 152 cm, 60 Inch) Height, Inches : 5 Inch(Converted to: 0 ft 5 Inch, 12.70 cm) Clinical Height : 165.1 cm Weight Source : Standing scale Weight Entry Format : [place] Clinical Dosing Weight : 100 kg Weight, Pounds : 220 lb Body Surface Area (BSA) : 2.06 m2 Body Mass Index : 36.7 kg/m2 (HI) [place] Body Weight : 57 kg MADYSON TEAGUE [...] Any Spiritual/Cultural Needs or Requests : No Yarsanism Preference : No listed preference MADYSON TEAGUE [...]
--- OUTSIDE RECORDS SUMMARY | 2025-08-01 12:48 | XMS_ITS | Clinical Summary ---
[facility] Address [facility] [place] [address] Care Team Providers Care Internal Medicine Physician Name Role Phone Unknown, Attending Provider Primary [...] therelease of HIV test results or diagnoses. [id number] Allergies Active Allergy Reactions Criticality Noted [...] EDT 07/16/20 Active naloxone (NARCAN) 4 mg/actuation [place] Apply 1 spray in one nostril if [...] 1982 Diabetes Screening 1982 Hepatitis C Screening (Luvocracyhart) 1982 Depression Screening 2000 HIV Screening 2000 Immunization: Hepatitis B (1 of 3 - 19+ 3-dose series) 2001 Immunization: Zoster (1 of 2) 2001 Cervical Cancer Screening/Pap Smear (Luvocracyhart) 2012 Immunization: COVID-19 (3 - Pfizer risk series) 03/25/2021 02/25/2021, 01/28/2021 Mammogram (Luvocracyhart) 2022 Alcohol Misuse Screening 07/08/2024 07/08/2023 Renal Function/GFR 07/16/2024 07/16/2023, 0 07/14/2023, 07/13/2023, Additional history exists Immunization: Influenza (MyChart) (#1) 2025 08/18/2023, 08/31/2022, 09/15/2021, Additional history exists Immunization: DTaP/Tdap/Td (3 - Td or Tdap) 02/19/2031 02/19/2021, 12/20/1996 Immunization: Pneumococcal Aged Out 11/30/2018 N o longer eligible based on patient's age to complete this topic Medical Devices Implanted Type Area Case Management Rn Device Identifier Shelf Expiration Date Model / Serial / Lot Synchromed Ii Pump Other Right: Abdomen [employer] MODEL [id number] / / Procedures Procedure [...] - 100 mg/dL 07/16/2023 8:38 AM EDT [facility] Comment:MODERATE TO GROSS HE MOLYSIS EVIDENT. RESULTS MAY BE INFLUENCED. Calcium 8.1(L) 8.6 - 10.3 mg/dL 07/16/2023 8:38 AM EDT [facility] Comment:MODERATE TO GROSS HE MOLYSIS EVIDENT. RESULTS MAY BE INFLUENCED. Phosphorus 4.8(H) 2.1 - 4.7 mg/dL 07/16/2023 8:38 AM EDT [facility] Comment:HEMOLYSIS EVIDENT. R ESULTS MAY BE INFLUENCED. Albumin 3.4(L) 3.5 - 5.7 g/dL 07/16/2023 8:38 AM EDT [facility] Comment:MODERATE TO GROSS HE MOLYSIS EVIDENT. RESULTS MAY BE INFLUENCED. Osmolality, Calculated 279 278 - 305 mOsm/kg 07/16/2023 8:38 AM EDT [facility] EGFR 81 07/16/2023 8:38 AM EDT [facility] Comment:As of 2022, the estimated GFR [...] be reported as >90mL/min/1.73m2. Reference: Rigoberto C, Severo M, Patsy DC, Sabino ND, Sophie CA, Bam LA, et al. A Unifying Approach for GFR Estimation: Recommendations of the NKF-ASN Task Force on Reassessing the inclusion of Race in Diagnosing Kidney Disease. Am J Kidney Dis. 2020. Plasma 07/16/2023 7:08 AM EDT 07/16/2023 8:04 AM EDT Guerita Stoll DO LAB BLOOD ORDERABLES Fin al Result [facility] [address] [place] [address], [facility] from Last 3 Months or Most Recently Relevant to Health Maintenance Insurance [facility] [facility] Advance Directives For more information, please contact: [phone] * Full Code (Latest Code Status on File) Date Activated Date Inactivated Comments 07/08/2023 11:29 PM 07/16/2023 6:40 PM Care Teams Internal Medicine Physician Relationship Specialty Start Date End Date Unknown, Attending Provider PCP - General 07/08/23
--- OUTSIDE RECORDS SUMMARY | 2025-08-01 12:48 | XMS_ITS | Encounter Summary ---
Author Organization [employer] ([place], [place], [place], [place]) Address [address] [place] [address] Care Team Providers Care Surgical First Assistant Name Role Phone Unavailable Primary Care Provider Unavailabl e Encounter Details Date Type Department Care Team (Late st Contact Info) Description 12/01/2018 Transcribed Document [facility] Family Medicine [address] [place] [address] ProviderBonnie MD [address] [place] [address] Social History Tobacco Use Types [...] - Historical ProviderMD - 12/01/2018 12:30 PM LAUNDRY HOUSEKEEPER Patient: JULIÁN PARR Age: 38 Years Sex: Female : 1980 Subjective No issues overnight, no acute distress. She did vomit again this morning, nonbloody vomitus. Objective Vitals & Measurements T: 36.7 ??C HR: 80 (Monitored) RR: 18 BP: 120/68 MAP: 80 SpO2: 97% Physical Exam General: Awake, alert, oriented. No acute distress. Jaundiced Head: Atraumatic, normocephalic Eyes: PERRL, EOMI, icteric sclera, Choudrant conjunctiva Neck: Supple, no mass palpable, no [...] 10 12/01/2018 04:29 Alk Phos 182 Units/Liter NC 12/01/2018 04:29 ALT 1254 Units/Liter NC 12/01/2018 04:29 AST 711 Units/Liter NC 12/01/2018 04:29 Blood Urea Nitrogen <3 mg/dL LOW 12/01/2018 04:29 Glucose Level 93 mg/dL 12/01/2018 04:29 Albumin Level 2.6 Gram/dL LOW 12/01/2018 04:29 Bilirubin Total 4.9 mg/dL NC 12/01/2018 04:29 Calcium Level 7.8 mg/dL LOW 12/01/2018 04:29 Magnesium Level 1.8 mg/dL 11/30/2018 04:20 Coagulation Results (Current Encounter/Past 24 Hours) PT 14.0 Second(s) NC 12/01/2018 04:12 INR 1.3 NC 12/01/2018 04:12 Creatinine Clearance (Current Encounter/Past 24 Hours) Creatinine Level 0.50 mg/dL LOW 12/01/2018 04:29 Bun/Creatinine 2.0 LOW 12/01/2018 04:29 Estimated Creatinine Clearance 139.97 mL/Min 12/01/2018 04:29 Diagnostic Results No Radiology Results Found Assessment/Plan Altered mental state R41.82 Altered mental status [id number] Dehydration E86.0, Dehydration E86.0, Dehydration E86.0 Hepatitis [...] consider Cardiology evaluation if recurrs. Echo from [facility], EF 55%. No immediate CV evaluation indicated [...]
--- OUTSIDE RECORDS SUMMARY | 2025-08-01 12:48 | XMS_ITS | Encounter Summary ---
Author Organization [employer] ([place], [place], [place], [place]) Address [address] [place] [address] Care Team Providers Care Lighting Fixture Installer Name Role Phone Unavailable Primary Care Provider Unavailabl e Encounter Details Date Type Department Care Team (Late st Contact Info) Description 11/30/2018 Transcribed Document [facility] Family Medicine [address] [place] [address] ProviderBonnie MD [address] [place] [address] Social History Tobacco Use Types [...] - Historical ProviderMD - 11/30/2018 6:04 PM TALENT MANAGEMENT MANAGER Care Management Assessment/Plan Entered On: 11/30/2018 18:05 [...] management. May need TF vs TPN. Dr Prinlge was considering transfer to if no improvement. [...] Lexy Lewis RN - 11/30/2018 18:04 EST Electronically signed by Neftaly [facility] Conversion Family Practice Nurse Practitioner Cerner at 02/21/2023 8:00 PM CDT documented in this encounter Plan of Treatment Not on file documented as of this encounter Visit Diagnoses Not on filedocumented in this encounter
--- OUTSIDE RECORDS SUMMARY | 2025-08-01 12:49 | XMS_ITS | Encounter Summary ---
Author Organization [employer] ([place], [place], [place]) Address [address] [place] [address] Care Team Providers Care Trade Show Specialist Name Role Phone Unavailable Primary Care Provider Unavailabl e Encounter Details Date Type Department Care Team (Late st Contact Info) Description 11/28/2018 Transcribed Document [facility] Family Medicine [address] [place] [address] ProviderBonnie MD [address] [place] [address] Social History Tobacco Use Types [...] - Historical ProviderMD - 11/28/2018 5:00 PM UNDERWRITING SUPPORT MANAGER Chart Check - Review Order Profile Entered On: 11/28/2018 19:23 EST Performed On: 11/28/2018 17:00 EST by Janeth Jeter, RN Chart Check All Active Orders Reviewed : Yes Janeth Jeter, RN - 11/28/2018 19:23 EST Electronically signed by Ceasar Higginbotham Conversion Employee Service Officer Cerner at 02/21/2023 8:18 PM CDT documented in this encounter Plan of Treatment Not on file documented as of this encounter Visit Diagnoses Not on filedocumented in this encounter
--- OUTSIDE RECORDS SUMMARY | 2025-08-01 12:49 | XMS_ITS | Encounter Summary ---
Author Organization [employer] ([place], [place], [place], [place]) Address [address] [place] [address] Care Team Providers Care Hair Designer Name Role Phone Unavailable Primary Care Provider Unavailabl e Encounter Details Date Type Department Care Team (Late st Contact Info) Description 11/28/2018 Transcribed Document [facility] Family Medicine [address] [place] [address] ProviderBonnie MD [address] [place] [address] Social History Tobacco Use Types [...] - Bonnie ProviderMD - 11/28/2018 1:16 PM TREE SHEAR OPERATOR Patient: JULIÁN PARR Age: 38 years Sex: [...] mg, 150 mL, 100 mL/Hr, IV Piggyback, Q64ARaf NaCl 0.9% bolus: 1,000 mL, 1,000 mL/Hr, [...] Complete pneumococcal 23-polyvalent vaccine: 0.5 mL, IntraMuscular, G14SMjl Documented Medications Documented PriLOSEC 20 mg oral [...] *PREMIX* 750 mg 150 mL, IV Piggyback, [id number] metroNIDAZOLE 500 mg 100 mL, IV Piggyback, [...] Problem list: Medical Metrorrhagia / SNOMED CT 239677350 / Confirmed Endometriosis / SNOMED CT 349112206 / Confirmed Dyspareunia in female / SNOMED CT 818903972 / Confirmed Anemia / SNOMED CT 811005267 / Confirmed Abnormal vaginal bleeding / SNOMED CT 471233189 / Confirmed heavy, Active Problems (5) Abnormal [...] (NOV 25) No Radiology Results Found ACC: [id number] ORDER: Culture Blood DATE: 11/26/2018 01:28 SOURCE: Blood SITE: Reports Pre 11/28/2018 06:01 No growth at 2 days. Pre 11/27/2018 06:01 No growth at 1 day. Pre 11/26/2018 16:03 Culture less than 24 Hrs old == ACC: [id number] ORDER: Culture Blood DATE: 11/26/2018 01:28 SOURCE: Blood SITE: Reports Pre 11/28/2018 06:01 No growth at 2 days. Pre 11/27/2018 06:01 No growth at 1 day. Pre 11/26/2018 16:03 Culture less than 24 Hrs old == ACC: [id number] ORDER: Flu A/B Rapid Screen DATE: 11/25/2018 [...] consider Cardiology evaluation if recurrs. Echo from [facility], EF 55%. No immediate CV evaluation indicated per cardiology 6. Anxiety. start Ativan as needed. Gastrointestinal prophylaxis. Pepcid. Deep venous thrombosis prophylaxis. Heparin. Discharge goals: declining lfts, not tolerating PO Time spent: 35 min lfts worsening..continue to trend closely. given worsening LFT's and INR will ask GI to re-eval. complexity increasing. MRCP Electronically signed by Ceasar Higginbotham Conversion Sanitary Landfill Supervisor Cerner at 02/21/2023 8:07 PM CDT documented in this encounter Plan of Treatment Not on file documented as of this encounter Visit Diagnoses Not on filedocumented in this encounter
--- OUTSIDE RECORDS SUMMARY | 2025-08-01 12:49 | XMS_ITS | Encounter Summary ---
Author Organization [employer] ([place], [place], [place], [place]) Address [address] [place] [address] Care Team Providers Care Sifter Operator Name Role Phone Unavailable Primary Care Provider Unavailabl e Encounter Details Date Type Department Care Team (Late st Contact Info) Description 11/27/2018 Transcribed Document [facility] [place] [address] [place] [address] ProviderBonnie MD [address] [place] [address] Social History Tobacco Use Types [...] - Historical ProviderMD - 11/27/2018 2:00 AM PERMASTONE APPLICATOR Malware Analyst Details Entered On: 11/27/2018 3:43 EST Performed [...] CARMINA COBIAN LPN - 11/27/2018 3:42 EST documented in this encounter Plan of Treatment Not on file documented as of this encounter Visit Diagnoses Not on filedocumented in this encounter
--- OUTSIDE RECORDS SUMMARY | 2025-08-01 12:49 | XMS_ITS | Encounter Summary ---
Author Organization [employer] ([place], [place], [place], [place]) Address [address] [place] [address] Care Team Providers Care Support Teacher Name Role Phone Unavailable Primary Care Provider Unavailabl e Encounter Details Date Type Department Care Team (Late st Contact Info) Description 11/27/2018 Transcribed Document [facility] Family Medicine [address] [place] [address] ProviderBonnie MD [address] [place] [address] Social History Tobacco Use Types [...] - Historical ProviderMD - 11/27/2018 5:00 PM COLLEGE SPORTS COACH Chart Check - Review Order Profile Entered On: 11/27/2018 18:15 EST Performed On: 11/27/2018 17:00 EST by MADYSON TEAGUE RN Chart Check Chart Reviewed Date and Time : 11/27/2018 18:15 EST Powerplans Initiated/Discontinued as Appropriate : Yes All Active Orders Reviewed : Yes MADYSON TEAGUE RN - 11/27/2018 18:15 EST Electronically signed by Neftaly [facility] Conversion Hose Operator Cerner at 02/21/2023 8:16 PM CDT documented in this encounter Plan of Treatment Not on file documented as of this encounter Visit Diagnoses Not on filedocumented in this encounter
--- OUTSIDE RECORDS SUMMARY | 2025-08-01 12:49 | XMS_ITS | Encounter Summary ---
Author Organization [employer] ([place], [place], [place], [place]) Address [address] [address] Care Team Providers Care Engine Tester Name Role Phone Unavailable Primary Care Provider Unavailabl e Encounter Details Date Type Department Care Team (Late st Contact Info) Description 11/27/2018 Transcribed Document [facility] [place] [address] [place] [address] ProviderBonnie MD [address] [place] [address] Social History Tobacco Use Types [...] - Bonnie ProviderMD - 11/27/2018 2:12 PM DIRECTOR OF PHYSICAL SECURITY Patient: JULIÁN PARR Age: 38 years Sex: [...] mg, 150 mL, 100 mL/Hr, IV Piggyback, L51LWjy NaCl 0.9% bolus: 1,000 mL, 1,000 mL/Hr, [...] Complete pneumococcal 23-polyvalent vaccine: 0.5 mL, IntraMuscular, J89QNrh Documented Medications Documented PriLOSEC 20 mg oral [...] *PREMIX* 750 mg 150 mL, IV Piggyback, G63GHvh metroNIDAZOLE 500 mg 100 mL, IV Piggyback, [...] Problem list: Medical Metrorrhagia / SNOMED CT 881471900 / Confirmed Endometriosis / SNOMED CT 876967427 / Confirmed Dyspareunia in female / SNOMED CT 342257398 / Confirmed Anemia / SNOMED CT 059887564 / Confirmed Abnormal vaginal bleeding / SNOMED CT 673569470 / Confirmed heavy, Active Problems (5) Abnormal [...] EST Height Source Estimated Height Entry Format [place] Height/Length, DANISH (ft) 5 ft Height/Length DANISH 5 Inch CLINICALHEIGHT 165.1 cm Type of Weight Measurement. [place] Weight, est lb 220 lb Estimated Clinical Dosing Weight 100 kg [place] Body Weight 57 kg Weight Source Estimated [...] (NOV 25) Radiology Results (Last 48 hours) [id number] -- 11/25/2018 22:24 CR Chest 1 Vw Portable (11/25/2018 19:58) Result: PORTABLE CHEST 11/25/2018 7:00 PM HISTORY: Syncope.COMPARISON: None.FINDINGS: The heart is normal in size . The mediastinum isunremarkable . The lungs are clear . There is no pneumothorax . Theosseous structures are unremarkable . IMPRESSION: No acute cardiopulmonary process .Images reviewed, interpreted, and dictated by Dr. Bertin Alfrdeo.Transcribed by Naun Marlow PA-C.Norma have personally viewed, [...] with the above final transcribed report. ACC: [id number] ORDER: Culture Blood DATE: 11/26/2018 01:28 SOURCE: Blood SITE: Reports Pre 11/27/2018 06:01 No growth at 1 day. Pre 11/26/2018 16:03 Culture less than 24 Hrs old == ACC: [id number] ORDER: Culture Blood DATE: 11/26/2018 01:28 SOURCE: Blood SITE: Reports Pre 11/27/2018 06:01 No growth at 1 day. Pre 11/26/2018 16:03 Culture less than 24 Hrs old == [facility]: [id number] ORDER: Flu A/B Rapid Screen DATE: 11/25/2018 [...] worsening LFT's will trend INR as well documented in this encounter Plan of Treatment Not on file documented as of this encounter Visit Diagnoses Not on filedocumented in this encounter
--- OUTSIDE RECORDS SUMMARY | 2025-08-01 12:49 | XMS_ITS | Clinical Summary ---
Author Organization [facility] [facility] Address [address] [place] [address] Care Team Providers Care Digital Editor Name Role Phone Az Mills MD Primary Care Provider [phone] Allergies Active Allergy Reactions Criticality Noted Date [...] 01/09/2023, 0 01/09/2023, 06/19/2020, Additional history exists Depression Risk Screening 11/06/2024 SDOH Screening 11/06/2024 COVID-19 Vaccine (2024- season) 2025 02/25/2021, 01/28/2021 Influenza Vaccine (#1) 2025 , 09/15/2021, 09/25/2020, [...] age to complete this topic Insurance [facility]NA [facility] Care Teams Digital Editor Relationship Specialty Start Date End Date Az Mills MD [address] Attn: Lee Resendiz [place] [phone] PCP - General Family Medicine 01/18/23
--- OUTSIDE RECORDS SUMMARY | 2025-08-01 12:49 | XMS_ITS | Encounter Summary ---
Author Organization [employer] ([place], [place], [place], [place]) Address [address] [place] [address] Care Team Providers Care Personnel Worker Name Role Phone Unavailable Primary Care Provider Unavailabl e Encounter Details Date Type Department Care Team (Late st Contact Info) Description 11/29/2018 Transcribed Document [facility] [place] [address] [place] [address] ProviderBonnie MD [address] [place] [address] Social History Tobacco Use Types [...] - Historical ProviderMD - 11/29/2018 5:22 PM ACTIVITY THERAPY SPECIALIST Care Management Assessment/Plan Entered On: 11/29/2018 17:25 [...] - 11/29/2018 17:22 EST Electronically signed by [facility], [facility] Conversion Digital Imaging Specialist Cerner at 02/21/2023 8:03 PM CDT documented in this encounter Plan of Treatment Not on file documented as of this encounter Visit Diagnoses Not on filedocumented in this encounter
--- OUTSIDE RECORDS SUMMARY | 2025-08-01 12:49 | XMS_ITS | Encounter Summary ---
Author Organization [employer] ([place], [place], [place], [place]) Address [address] [place] [address] Care Team Providers Care Auricular Therapist Name Role Phone Unavailable Primary Care Provider Unavailabl e Encounter Details Date Type Department Care Team (Late st Contact Info) Description 11/28/2018 Transcribed Document [facility] Family Medicine [address] [place] [address] ProviderBonnie MD [address] [place] [address] Social History Tobacco Use Types [...] - Historical ProviderMD - 11/28/2018 4:35 PM GLUING CREW LEADER Care Management Assessment/Plan Entered On: 11/28/2018 16:36 [...] 11/28/2018 16:35 EST Electronically signed by Neftaly [facility] Conversion Cycle Consultant Cerner at 02/21/2023 8:20 PM CDT documented in this encounter Plan of Treatment Not on file documented as of this encounter Visit Diagnoses Not on filedocumented in this encounter
--- OUTSIDE RECORDS SUMMARY | 2025-08-01 12:49 | XMS_ITS | Encounter Summary ---
Author Organization [employer] ([place], [place], [place], [place]) Address [address] [place] [address] Care Team Providers Care Folder Hand Name Role Phone Unavailable Primary Care Provider Unavailabl e Encounter Details Date Type Department Care Team (Late st Contact Info) Description 11/27/2018 Transcribed Document [facility] Family Medicine [address] [place] [address] ProviderBonnie MD [address] [place] [address] Social History Tobacco Use Types [...] Bonnie Poole MD - 11/27/2018 8:23 AM AUTOMATIC FANCY MACHINE OPERATOR Patient: JULIÁN PARR Age: 38 years Sex: Female : 1980 Associated Diagnoses: None Author: ROSIBEL PEÑA MD-[facility] Health Status Current medications: (Selected) Inpatient [...] mg, 150 mL, 100 mL/Hr, IV Piggyback, F98IXzj NaCl 0.9% bolus: 1,000 mL, 1,000 mL/Hr, [...] Pain pneumococcal 23-polyvalent vaccine: 0.5 mL, IntraMuscular, F41OVmq Objective Intake and Output 24 hour intake: [...] of motion, Normal strength. Integumentary: Warm, Dry, [place]. Neurologic: Alert, Oriented. Psychiatric: Cooperative, Appropriate mood [...] 24 Hours) Radiology Results (Last 48 hours) [id number] -- 11/25/2018 22:24 CR Chest 1 Vw [...] - Hgb 10 PLAN; 11/27/18 Echo from [facility], EF 55%. No immediate CV evaluation indicated. Will sign-off, call if questions. 11/26/18 Obtaining copy of Echo from [facility]. Anemia per primary service. Electronically signed by Ceasar Higginbotham Conversion Welding Systems And Equipment Repairer Cerner at 02/21/2023 8:26 PM CDT documented in this encounter Plan of Treatment Not on file documented as of this encounter Visit Diagnoses Not on filedocumented in this encounter
--- OUTSIDE RECORDS SUMMARY | 2025-08-01 12:49 | XMS_ITS | Encounter Summary ---
Author Organization [employer] ([place], [place], [place], [place]) Address [address] [place] [address] Care Team Providers Care Registered Dental Hygienist Name Role Phone Unavailable Primary Care Provider Unavailabl e Encounter Details Date Type Department Care Team (Late st Contact Info) Description 11/28/2018 Transcribed Document [facility] Family Medicine [address] [place] [address] ProviderBonnie MD [address] [place] [address] Social History Tobacco Use Types [...] - Historical ProviderMD - 11/28/2018 5:23 PM FIRE MANAGEMENT TECHNICIAN Patient: JULIÁN PARR Age: 38 Years Sex: [...] copy of her labs on discharge from [facility] on 11/22/2018 that showed a total protein [...] transfer to a facility such as the [facility] or [facility] with capabilities to evaluate for liver transplant [...] Levaquin, 750 mg, 150 mL, IV Piggyback, D29RVnv morphine, 2 mg, 1 mL, IV Push, [...] LOW 11/28/2018 04:50 Glucose Level 120 mg/dL [place] 11/28/2018 04:50 Calcium Level 7.5 mg/dL LOW [...] LOW 11/28/2018 04:50 Creatinine Level 0.50 mg/dL [facility] 11/28/2018 04:50 Globulin 2.8 Gram/dL 11/28/2018 04:50 Sodium Level 141 mmol/L 11/28/2018 04:50 Potassium Level 3.4 mmol/L [facility] 11/28/2018 04:50 Chloride Level 110 mmol/L 11/28/2018 04:50 Carbon Dioxide Level 26 mmol/L 11/28/2018 04:50 Anion Gap 8 [facility] 11/28/2018 04:50 Alk Phos 195 Units/Liter [place] 11/28/2018 04:50 ALT 2285 Units/Liter [place] 11/28/2018 04:50 AST 2793 Units/Liter [place] 11/28/2018 04:50 Blood Urea Nitrogen 5 mg/dL [facility] 11/28/2018 04:50 Glucose Level 120 mg/dL [place] 11/28/2018 04:50 Albumin Level 2.4 Gram/dL [facility] 11/28/2018 04:50 Bilirubin Total 2.0 mg/dL [place] 11/28/2018 04:50 Calcium Level 7.5 mg/dL [facility] 11/28/2018 04:50 Coagulation Results (Current Encounter/Past 24 Hours) PT 15.2 Second(s) [place] 11/28/2018 04:06 INR 1.4 [place] 11/28/2018 04:06 Creatinine Clearance (Current Encounter/Past 24 [...] November 26, 2018 9:02 EST Encounter info: [id number], [facility], Inpatient, 11/25/2018 - * Final Report * [...] has an image Electronically signed by Neftaly [facility] Conversion Director Of Direct Marketing Cerner at 02/21/2023 8:04 PM CDT documented in this encounter Plan of Treatment Not on file documented as of this encounter Visit Diagnoses Not on filedocumented in this encounter
[2025-08-01 13:15] VITALS: PULSE 79; PULSE 85
[2025-08-01] MEDS: ALBUTEROL 0.083% 2.5 MG/3 ML NEB IH (13:15)
--- NOTE | 2025-08-01 13:45 | CA_ITS ---
APPROVED REPORT EXAM: Comprehensive 2D, Doppler, and color-flow Echocardiogram [employer] Clerk: Lalita Bae RT(R) Ht: 5 ft 5 in Wt: 300lbs BSA: 2.35 BP: 137/87 mmHg Indications: CAD, Dyspnea, Palpitations 2D Dimensions LVEF (Ruggiero's) 60.00 % F: 54 - 74 LV Volume 94.90 mL F: 46 - 106 LV Volume Index 40.237280 mL/m2 F: 29 - 61 LA Volume 42.80 mL LA Volume Index 18.651972 mL/m2 (M/F) 16-34 EF AP4 58.10 % EF AP2 60.3 % EF BP 60.0 % GL Strain -19.0 % M-Mode Dimensions RVDd 2.88 cm (0.9-2.6) LA Diam 3.45 cm (1.9-4.0) LVDd 4.96 cm (3.5-5.7) LVDs 3.69 cm (3.5-5.7) IVSd 0.76 cm (0.6-1.1) PWd 0.85 cm (0.6-1.1) EF (Teich) 50.20% FS 25.60% EDV (Teich) 116.10 mL ESV (Teich) 57.80 mL LV Diastology E Decel Time 180 (160-240 msec) E/A Ratio 0.85 Mitral Valve MV E Max Bobby. 66.0 (40-130 cm/s) MV A Velocity 77.0 (40-130 cm/s) E/A Ratio 0.85 MV PHT 53.0 ms Left Ventricle The left ventricle is normal size. Left ventricular systolic function is normal. The left ventricular ejection fraction is within the normal range. There is normal left ventricular wall thickness. There is normal LV segmental wall motion. The left ventricular diastolic function is normal. LVEF is 55% Right Ventricle The right ventricle is normal size. The right ventricular systolic function is normal. Atria The left atrium is mildly dilated. The right atrium size is normal. The interatrial septum is not well-visualized. Aortic Valve The aortic valve opens well. There is no hemodynamically significant aortic valvular stenosis. No aortic regurgitation is present. Mitral Valve The mitral valve is normal in structure. No evidence of mitral valve stenosis. Mild mitral regurgitation is present. Tricuspid Valve The tricuspid valve leaflets are thin and pliable. Trace tricuspid regurgitation. There is insufficient TR jet to estimate RVSP. Pulmonic Valve The pulmonary valve is grossly normal in structure. Trace pulmonic valve regurgitation is present. Great Vessels The aortic root is normal in size. IVC is normal in size and collapses >50% with inspiration. Pericardium There is no pericardial effusion. Other Information Study Quality: Fair Conclusion Normal biventricular systolic function. Mild LA dilation. Mild MR. Electronically signed by : Carol Stephenson MD 08/04/2025 12:38:06
--- NOTE | 2025-08-01 14:45 | MM_ITS ---
PROCEDURE INFORMATION: Exam: MG Bilateral Screening 3D Mammography Exam date and time: 08/01/2025 1:57 PM Age: 45 years old Clinical indication: Screening examination TECHNIQUE: Imaging protocol: Bilateral Screening tomosynthesis and 2D mammography including computer-aided detection (CAD) when performed. COMPARISON: 1. MG MM DIG SCREENING MAMM BI W/CAD 11/21/2023 3:02 PM 2. MG MM DIG SCREENING MAMM BI W/CAD 09/21/2022 3:22 PM FINDINGS: MAMMOGRAPHY: Breast composition: There are scattered areas of fibroglandular density. Mass: None. Architectural distortion: None. Calcifications: No suspicious calcifications. Asymmetric density: None. Skin thickening: None. Axillary adenopathy: None. IMPRESSION: No mammographic evidence of malignancy. Annual screening is recommended unless otherwise clinically indicated. ASSESSMENT: BI-RADS Category 1: Negative.
== END 2025-08-01 23:59 | disposition home or self-care (01) ==
LOC: RT 12:45
PROVIDERS: PCP Nurse Practitioner Family; Visit Provider Nurse Practitioner Family
DX: Z12.31 Encounter for screening mammogram for malignant neoplasm of breast (principal); I49.1 Atrial premature depolarization; I47.19 Other supraventricular tachycardia; I49.3 Ventricular premature depolarization; I47.20 Ventricular tachycardia, unspecified; I25.10 Atherosclerotic heart disease of native coronary artery without angina pectoris; I34.0 Nonrheumatic mitral (valve) insufficiency; I51.7 Cardiomegaly; F41.9 Anxiety disorder, unspecified; F32.A Depression, unspecified; R92.323 Mammographic fibroglandular density, bilateral breasts
CPT/HCPCS: 77063; 77067; 93270; 93306; 94010; 94640

== ENCOUNTER 2025-08-13 11:38 | Emergency (ER) | payer OTHER, SELFPAY ==
[2025-08-13] VITALS (41 sets, daily range): BP systolic 136–198; BP diastolic 74–118; PULSE 67–92; RESP 16–18; TEMP 36.8; O2SAT 97–100; BMI 46.5
--- NOTE | 2025-08-13 11:58 | CT_ITS ---
FINAL REPORT TECHNIQUE: Thin section axial images are obtained through the abdomen and pelvis after intravenous contrast. Reconstruction images were obtained from the axial data. Exam was performed using dose reduction techniques. CLINICAL HISTORY: right flank pain COMPARISON: 10/17/2024 FINDINGS: LUNG BASES: There is right lower lobe atelectasis and trace bilateral pleural effusions. Heart size is normal. LIVER: Homogeneous. No focal lesion. GALLBLADDER/BILIARY SYSTEM: Gallbladder is absent. No biliary dilatation. SPLEEN: Unremarkable. PANCREAS: Unremarkable. ADRENALS: Unremarkable. KIDNEYS/URETERS/BLADDER: No hydronephrosis, renal mass, or renal stone. Unremarkable urinary bladder. 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 No small bowel obstruction or dilatation. No evidence of internal hernia. Appendix is absent. No acute colon abnormality. PELVIC ORGANS: Uterus is absent. LYMPH NODES/RETROPERITONEUM/MESENTERY: No lymphadenopathy. No abdominal aortic aneurysm. ABDOMINAL WALL: The abdominal wall is intact. FREE FLUID: No ascites. BONES: No acute osseous abnormality. IMPRESSION: No acute abnormality or findings to suggest etiology for right flank pain. Reviewed, Interpreted and Dictated by Kassandra Ag MD Transcribed by Lesvia Nation Authenticated and [facility]
--- NOTE | 2025-08-13 12:02 | [facility].EDGENADL ---
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 Workup will be conducted with hematologic labs, specific imaging. Initial inventions include crystalloid bolus, analgesics. Patient with normal white count 8.1, glucose did go to 64 so we gave patient Coke and crackers. Normal urine. I checked on patient and she said she needed to use the restroom, and she felt like she might vomit. She says she sweaty and she needed help to the bathroom. I asked Carlos to help her go to the bathroom and he did. Patient became unresponsive at that time. Dr. Ozuna evaluated patient at that time. <Arnaud Ozuna MD - Last Filed: 08/13/25 15:41> Vital Signs: 08/13/25 11:49 08/13/25 13:34 08/13/25 14:58 Temperature 98.3 F Temperature Source Oral Pulse Rate 80 Pulse Rate [Right] 87 Respiratory Rate 18 18 18 Blood Pressure 153/78 H 163/91 H Blood Pressure [Right Arm] 191/106 H Blood Pressure Mean Blood Pressure Mean [Right Arm] 134 Blood Pressure Source Automatic Cuff Blood Pressure Source [Right Arm] Automatic Cuff Blood Pressure Position Sitting Blood Pressure Position [Right Arm] Sitting 02 Sat by Pulse Oximetry 99 97 Oxygen Delivery Method Room Air Room Air Fraction of Inspired Oxygen 08/13/25 15:01 08/13/25 15:05 08/13/25 15:25 Temperature Temperature Source Pulse Rate 92 H 82 Pulse Rate [Right] Respiratory Rate 18 18 18 Blood Pressure 180/102 H 188/104 H Blood Pressure [Right Arm] Blood Pressure Mean Blood Pressure Mean [Right Arm] Blood Pressure Source Blood Pressure Source [Right Arm] Blood Pressure Position Blood Pressure Position [Right Arm] 02 Sat by Pulse Oximetry 100 98 100 Oxygen Delivery Method Mechanical Ventilation Mechanical Ventilation Fraction of Inspired Oxygen 100 08/13/25 15:36 08/13/25 15:41 08/13/25 15:46 Temperature Temperature Source Pulse Rate 78 71 Pulse Rate [Right] Respiratory Rate 18 18 18 Blood Pressure 180/103 H 198/109 H 195/112 H Blood Pressure [Right Arm] Blood Pressure Mean Blood Pressure Mean [Right Arm] Blood Pressure Source Blood Pressure Source [Right Arm] Blood Pressure Position Blood Pressure Position [Right Arm] 02 Sat by Pulse Oximetry 100 100 100 Oxygen Delivery Method Mechanical Ventilation Mechanical Ventilation Mechanical Ventilation Fraction of Inspired Oxygen 08/13/25 16:30 08/13/25 16:34 08/13/25 16:36 Temperature Temperature Source Pulse Rate 86 71 69 Pulse Rate [Right] Respiratory Rate 16 18 18 Blood Pressure 181/118 H 157/99 H 161/92 H Blood Pressure [Right Arm] Blood Pressure Mean Blood Pressure Mean [Right Arm] Blood Pressure Source Blood Pressure Source [Right Arm] Blood Pressure Position Blood Pressure Position [Right Arm] 02 Sat by Pulse Oximetry 100 100 100 Oxygen Delivery Method Mechanical Ventilation Mechanical Ventilation Mechanical Ventilation Fraction of Inspired Oxygen 08/13/25 16:41 08/13/25 16:46 08/13/25 16:51 Temperature Temperature Source Pulse Rate 73 70 72 Pulse Rate [Right] Respiratory Rate 18 18 18 Blood Pressure 156/95 H 152/90 H 146/91 H Blood Pressure [Right Arm] Blood Pressure Mean Blood Pressure Mean [Right Arm] Blood Pressure Source Blood Pressure Source [Right Arm] Blood Pressure Position Blood Pressure Position [Right Arm] 02 Sat by Pulse Oximetry 100 100 100 Oxygen Delivery Method Mechanical Ventilation Mechanical Ventilation Mechanical Ventilation Fraction of Inspired Oxygen 08/13/25 16:56 08/13/25 17:01 08/13/25 17:06 Temperature Temperature Source Pulse Rate 71 74 72 Pulse Rate [Right] Respiratory Rate 18 18 18 Blood Pressure 148/86 H 164/103 H 154/95 H Blood Pressure [Right Arm] Blood Pressure Mean Blood Pressure Mean [Right Arm] Blood Pressure Source Blood Pressure Source [Right Arm] Blood Pressure Position Blood Pressure Position [Right Arm] 02 Sat by Pulse Oximetry 100 100 100 Oxygen Delivery Method Mechanical Ventilation Mechanical Ventilation Mechanical Ventilation Fraction of Inspired Oxygen 08/13/25 17:11 08/13/25 17:16 08/13/25 17:26 Temperature Temperature Source Pulse Rate 72 71 68 Pulse Rate [Right] Respiratory Rate 18 18 18 Blood Pressure 158/96 H 151/91 H 151/91 H Blood Pressure [Right Arm] Blood Pressure Mean Blood Pressure Mean [Right Arm] Blood Pressure Source Blood Pressure Source [Right Arm] Blood Pressure Position Blood Pressure Position [Right Arm] 02 Sat by Pulse Oximetry 100 100 100 Oxygen Delivery Method Mechanical Ventilation Mechanical Ventilation Mechanical Ventilation Fraction of Inspired Oxygen 08/13/25 17:31 08/13/25 17:36 08/13/25 17:37 Temperature Temperature Source Pulse Rate 69 69 69 Pulse Rate [Right] Respiratory Rate 18 18 18 Blood Pressure 152/92 H 161/101 H 164/97 H Blood Pressure [Right Arm] Blood Pressure Mean Blood Pressure Mean [Right Arm] Blood Pressure Source Blood Pressure Source [Right Arm] Blood Pressure Position Blood Pressure Position [Right Arm] 02 Sat by Pulse Oximetry 100 100 100 Oxygen Delivery Method Mechanical Ventilation Mechanical Ventilation Mechanical Ventilation Fraction of Inspired Oxygen 08/13/25 17:41 08/13/25 17:46 08/13/25 17:51 Temperature Temperature Source Pulse Rate 67 Pulse Rate [Right] Respiratory Rate 18 Blood Pressure 151/92 H 158/90 H 153/92 H Blood Pressure [Right Arm] Blood Pressure Mean 110 110 Blood Pressure Mean [Right Arm] Blood Pressure Source Blood Pressure Source [Right Arm] Blood Pressure Position Blood Pressure Position [Right Arm] 02 Sat by Pulse Oximetry 100 Oxygen Delivery Method Mechanical Ventilation Mechanical Ventilation Mechanical Ventilation Fraction of Inspired Oxygen 08/13/25 17:56 08/13/25 18:01 08/13/25 18:06 Temperature Temperature Source Pulse Rate Pulse Rate [Right] Respiratory Rate Blood Pressure 157/95 H 159/95 H 151/94 H Blood Pressure [Right Arm] Blood Pressure Mean 110 110 106 Blood Pressure Mean [Right Arm] Blood Pressure Source Blood Pressure Source [Right Arm] Blood Pressure Position Blood Pressure Position [Right Arm] 02 Sat by Pulse Oximetry Oxygen Delivery Method Mechanical Ventilation Mechanical Ventilation Mechanical Ventilation Fraction of Inspired Oxygen 08/13/25 18:11 08/13/25 18:16 08/13/25 18:21 Temperature Temperature Source Pulse Rate Pulse Rate [Right] Respiratory Rate Blood Pressure 155/91 H 157/84 H 145/91 H Blood Pressure [Right Arm] Blood Pressure Mean 112 108 114 Blood Pressure Mean [Right Arm] Blood Pressure Source Blood Pressure Source [Right Arm] Blood Pressure Position Blood Pressure Position [Right Arm] 02 Sat by Pulse Oximetry Oxygen Delivery Method Mechanical Ventilation Mechanical Ventilation Mechanical Ventilation Fraction of Inspired Oxygen 08/13/25 18:26 08/13/25 18:31 08/13/25 18:36 Temperature Temperature Source Pulse Rate Pulse Rate [Right] Respiratory Rate Blood Pressure 168/98 H 158/109 H 170/106 H Blood Pressure [Right Arm] Blood Pressure Mean 121 115 125 Blood Pressure Mean [Right Arm] Blood Pressure Source Blood Pressure Source [Right Arm] Blood Pressure Position Blood Pressure Position [Right Arm] 02 Sat by Pulse Oximetry Oxygen Delivery Method Mechanical Ventilation Mechanical Ventilation Mechanical Ventilation Fraction of Inspired Oxygen 08/13/25 18:41 08/13/25 18:46 08/13/25 18:51 Temperature Temperature Source Pulse Rate 71 68 Pulse Rate [Right] Respiratory Rate 18 18 Blood Pressure 174/109 H 164/101 H 171/104 H Blood Pressure [Right Arm] Blood Pressure Mean 117 118 118 Blood Pressure Mean [Right Arm] Blood Pressure Source Blood Pressure Source [Right Arm] Blood Pressure Position Blood Pressure Position [Right Arm] 02 Sat by Pulse Oximetry 100 100 Oxygen Delivery Method Mechanical Ventilation Mechanical Ventilation Mechanical Ventilation Fraction of Inspired Oxygen Lab Data Lab Results 08/13/25 11:57: Urine Color Yellow, Urine Appearance Clear, Urine pH 6.0, Ur Specific [place] 1.015, Urine Protein Negative, Urine Glucose (UA) Negative, Urine Ketones Negative, Urine Blood Negative, Urine Nitrate Negative, Urine Bilirubin Negative, Urine Urobilinogen 0.2, Ur Leukocyte Esterase Negative, Urine RBC None, Urine WBC 3-5, Ur Squamous Epith Cells 5-10, Urine Bacteria 1+, Urine HCG, Qual Negative, Urine Opiates Screen Negative, Urine Methadone Screen Negative, Ur Barbituates Screen Negative, Ur Phencyclidine Scrn Negative, Ur Amphetamines Screen Negative, U Benzodiazepines Scrn Negative, Urine Cocaine Screen Negative, U Marijuana (THC) Screen Negative 08/13/25 12:19: WBC 8.1, RBC 4.35, Hgb 12.4, Hct 36.8 L, MCV 84.6, MCH 28.5, MCHC 33.7, RDW 12.5, Plt Count 312, MPV 10.8 H, Neut % (Auto) 62.0, Lymph % (Auto) 25.2, [place] % (Auto) 7.9, Eos % (Auto) 4.1, Baso % (Auto) 0.4, Neut # (Auto) 5.0, Lymph # (Auto) 2.1, [place] # (Auto) 0.6, Eos # (Auto) 0.3, Baso # (Auto) 0.0, PT 10.9, INR 0.98, APTT 25.5, D-Dimer 0.52 H, Sodium 140, Potassium 3.9, Chloride 103, Carbon Dioxide 30, Anion Gap 10.9, BUN 12, Creatinine 0.80, Estimated Creat Clear 82, Estimated GFR 78, Est GFR ( Amer) 95, Glucose 64 L, Calcium 9.0, Magnesium 1.9 08/13/25 12:19: Magnesium 1.9, Total Bilirubin 1.0, AST 24, ALT 18, Alkaline Phosphatase 105, Troponin I < 0.01, Total Protein 6.4 D, Albumin 3.8, Globulin 2.6, Albumin/Globulin Ratio 1.5, Lipase 57 08/13/25 12:19: Lipase 54, TSH 4.19, Free T4 0.96, Salicylates < 1.0 L, Acetaminophen < 10 L, Plasma/Serum Alcohol < 10 08/13/25 13:06: POC Glucose 109 08/13/25 14:29: POC Glucose 109 08/13/25 15:39: Specimen Source Left radial, O2 % 100, ABG pH 7.40, ABG pCO2 42.6, ABG pO2 158.1 H, ABG HCO3 26.0, ABG Total CO2 27.3 H, ABG O2 Saturation 99, ABG Base Excess 1.3, Mir Test Patient unable, Vent Rate 18, Tidal Volume 440, PEEP 5 08/13/25 18:58: Troponin I < 0.01 08/13/25 19:50: VBG pH 7.38, VBG pCO2 40.4, VBG pO2 34.5, VBG HCO3 23.5, VBG Total CO2 24.7, VBG O2 Saturation 66.0, VBG Base Excess -1.6, VBG Lactic Acid 1.6 Orders (Tests/Meds): ED MEDICATIONS Generic Name Dose Route Start Last Admin Trade Name Zeenat PRN Reason Stop Dose Admin Propofol 100 mls @ 7.62 mls/hr 08/13/25 14:50 08/13/25 18:22 Diprivan 10mg/Ml 100ml Bottle IV 09/12/25 14:49 70 mcg/kg/min .Q13H8M ERINN 53.34 mls/hr Protocol Titration 10 MCG/KG/MIN Fentanyl Citrate 1,000 mcg/ 100 mls @ 1 mls/hr 08/13/25 14:51 08/13/25 18:20 Sodium Chloride IV 09/12/25 14:50 10 mcg/hr .Q24H ERINN 1 mls/hr Protocol Administration 10 MCG/HR Sodium Chloride 10 ml 08/13/25 15:56 08/13/25 16:03 Sodium Chloride 0.9% 10ml Syr (Rad Only) IV 09/12/25 15:55 10 ml NEEDED PRN Administration Maintain IV Site Discontinued Medications Generic Name Dose Route Start Last Admin Trade Name Zeenat PRN Reason Stop Dose Admin Acetaminophen 1,000 mg 08/13/25 11:59 08/13/25 12:22 Acetaminophen 1,000mg/100ml Vial IV 08/13/25 12:00 1,000 mg ONCE ONE Administration Atropine Sulfate 0.5 mg 08/13/25 15:29 08/13/25 15:39 Atropine 1mg/10ml Syringe (Crash Cart) IV 08/13/25 15:30 0.5 mg ONCE ONE Administration Etomidate 20 mg 08/13/25 14:44 08/13/25 14:44 Etomidate 40mg/20ml Vial IV 08/13/25 14:45 20 mg ONCE ONE Administration Sodium Chloride 1,000 mls @ 999 mls/hr 08/13/25 11:59 08/13/25 15:08 Sod Chlor 0.9% 1000ml Bag IV 08/13/25 12:59 Infused .Q1H1M ONE Infusion Levetiracetam 4,500 mg/ Sodium 145 mls @ 290 mls/hr 08/13/25 15:28 08/13/25 17:08 Chloride IV 08/13/25 15:29 Infused ONCE ONE Infusion Iopamidol 75 ml 08/13/25 12:27 08/13/25 12:28 Iopamidol-370 (76%);100ml Bottle IV 08/13/25 12:28 75 ml ONCE ONE Administration Iopamidol 160 ml 08/13/25 15:56 08/13/25 16:03 Iopamidol-370 (76%);100ml Bottle IV 08/13/25 15:57 120 ml ONCE ONE Administration Ketorolac Tromethamine 30 mg 08/13/25 11:59 08/13/25 12:21 Ketorolac 30mg/Ml Vial IV 08/13/25 12:00 30 mg ONCE ONE Administration Midazolam HCl 2 mg 08/13/25 15:58 08/13/25 15:59 Midazolam 2mg/2ml Vial IV 08/13/25 15:59 2 mg ONCE ONE Administration Ondansetron HCl 4 mg 08/13/25 12:02 08/13/25 12:20 Ondansetron 4mg/2ml Vial IV 08/13/25 12:03 4 mg ONCE ONE Administration Rocuronium Sylvester 100 mg 08/13/25 14:44 08/13/25 14:44 Rocuronium Sylvester 50mg/5ml Vial IV 08/13/25 14:45 100 mg ONCE ONE Administration Sodium Chloride 50 ml 08/13/25 12:27 08/13/25 12:28 0.9 % Sodium Chloride 50 Ml Vial IV 08/13/25 12:28 50 ml ONCE ONE Administration Sodium Chloride 10 ml 08/13/25 12:27 08/13/25 12:28 Sodium Chloride 0.9% 10ml Syr (Rad Only) IV 08/13/25 12:28 10 ml ONCE ONE Administration Sodium Chloride 100 ml 08/13/25 15:56 08/13/25 16:01 0.9 % Sodium Chloride 50 Ml Vial IV 08/13/25 15:57 100 ml ONCE ONE Administration ORDERS Category Date Time Status CT abdomen pelvis w con Stat Cat Scan 08/13/25 11:[address] angio abdomen pelvis Stat Cat Scan 08/13/25 14:[address] angio chest - dissection Stat Cat Scan 08/13/25 14:[address] angio head Stat Cat Scan 08/13/25 14:[address] angio neck Stat Cat Scan 08/13/25 14:[address] head/brain wo con Stat Cat Scan 08/13/25 14:50 Completed Chest XR -- portable [XR chest portable] Stat Exams 08/13/25 18:38 Completed Acetaminophen Stat Lab 08/13/25 12:19 Completed CBC w/Auto Diff [Complete Blood Count Auto Diff] Stat Lab 08/13/25 12:19 Completed Comprehensive Metabolic Panel Stat Lab 08/13/25 12:19 Completed D-Dimer Stat Lab 08/13/25 12:19 Completed Drug Screen,Urine Stat Lab 08/13/25 11:57 Completed Ethanol [Ethyl Alcohol] Stat Lab 08/13/25 12:19 Completed Free T4 (Free Thyroxine) Stat Lab 08/13/25 12:19 Completed Lipase Stat Lab 08/13/25 12:19 Completed Lipase Stat Lab 08/13/25 12:19 Completed MG [Magnesium] Stat Lab 08/13/25 12:19 Completed Magnesium Stat Lab 08/13/25 12:19 Completed POC Glucose,Bedside Routine Lab 08/13/25 13:06 Completed POC Glucose,Bedside Routine Lab 08/13/25 14:29 Completed PT INR [Prothrombin Time INR] Stat Lab 08/13/25 12:19 Completed PTT [Activated Partial Thrombo Time] Stat Lab 08/13/25 12:19 Completed Salicylate Stat Lab 08/13/25 12:19 Completed TSH [Thyroid Stimulating Hormone] Stat Lab 08/13/25 12:19 Completed Trop I [Troponin I] Stat Lab 08/13/25 12:19 Completed Troponin I Q3H Lab 08/13/25 18:58 Completed Troponin I Q3H Lab 08/13/25 21:15 Ordered Urinalysis and Microscopic Stat Lab 08/13/25 11:57 Completed Urine , HCG Qual. Stat Lab 08/13/25 11:57 Completed VBG PH Stat Lab 08/13/25 14:52 Ordered Sputum Culture & Gram Stain Stat Micro 08/13/25 14:54 Results ABG [Arterial Blood Gas] Stat RT 08/13/25 15:39 Results VBG [Venous Blood Gas] Stat RT 08/13/25 19:50 Completed Medical Decision Narrative: patient is a 45-year-old female presenting to the emergency department for evaluation of dark urine, right lower quadrant pain. Patient is hemodynamically stable and nontoxic-appearing upon arrival, afebrile. Differential diagnosis includes kidney stone, UTI, among others. Workup will be conducted with hematologic labs, specific imaging. Initial inventions include crystalloid bolus, analgesics. Patient with normal white count 8.1, glucose did go to 64 so we gave patient Coke and crackers. Normal urine. I checked on patient and she said she needed to use the restroom, and she felt like she might vomit. She says she sweaty and she needed help to the bathroom. I asked Carlos to help her go to the bathroom and he did. Patient became unresponsive at that time. Dr. Ozuna evaluated patient at that time. Arnaud Ozuna MD: I was consulted by the CLEMENTE, and we discussed the complexity of the problems being addressed. I approved the treatment and management plan for this patient's care in the emergency department, thus performing a substantive portion of the medical decision making. Hematologic labs thus far reviewed by me no significant leukocytosis no transfusable anemia no BRUNA or critical electrolyte abnormality, no coagulopathy. Lipase normal. Urinalysis interpreted by me and not consistent with infection. CT imaging abdomen pelvis no acute pathology. Patient has right lower quadrant abdominal pain has previous hysterectomy ovaries are not large on CT scan torsion is unlikely. Patient became diaphoretic and unresponsive with eyes veered towards the right for approximately 10 minutes. Patient did not have any generalized tonic-clonic movement. There was bilateral eye twitching at the time. Pupils were equally round and reactive to light. Profuse diaphoresis. Maintaining oxygenation. For airway protection patient underwent rapid sequence intubation with etomidate and rocuronium. Differential diagnosis includes subclinical status, toxic, among others. Prior to intubation patient's eyes approached midline. Patient was intubated without complication. Workup will be broadened with additional hematologic labs, ingestions drug abuse noncontrasted CT scan of the head CTA of the head neck chest abdomen and pelvis. Upon transfer of care to Dr. Mascorro he reviewed patient's medication list she is on bethanechol. Bethanechol toxicity could explain her diaphoresis, salivation, lower abdominal pain. Propofol ip initiated at transfer of care. <Bret Ludiwn, DO - Last Filed: 08/13/25 20:56> Medical Records Medical records reviewed: Yes I reviewed the patient's medical records. Vital Signs: 08/13/25 11:49 08/13/25 13:34 08/13/25 14:58 Temperature 98.3 F Temperature Source Oral Pulse Rate 80 Pulse Rate [Right] 87 Respiratory Rate 18 18 18 Blood Pressure 153/78 H 163/91 H Blood Pressure [Right Arm] 191/106 H Blood Pressure Mean Blood Pressure Mean [Right Arm] 134 Blood Pressure Source Automatic Cuff Blood Pressure Source [Right Arm] Automatic Cuff Blood Pressure Position Sitting Blood Pressure Position [Right Arm] Sitting 02 Sat by Pulse Oximetry 99 97 Oxygen Delivery Method Room Air Room Air Fraction of Inspired Oxygen 08/13/25 15:01 08/13/25 15:05 08/13/25 15:25 Temperature Temperature Source Pulse Rate 92 H 82 Pulse Rate [Right] Respiratory Rate 18 18 18 Blood Pressure 180/102 H 188/104 H Blood Pressure [Right Arm] Blood Pressure Mean Blood Pressure Mean [Right Arm] Blood Pressure Source Blood Pressure Source [Right Arm] Blood Pressure Position Blood Pressure Position [Right Arm] 02 Sat by Pulse Oximetry 100 98 100 Oxygen Delivery Method Mechanical Ventilation Mechanical Ventilation Fraction of Inspired Oxygen 100 08/13/25 15:36 08/13/25 15:41 08/13/25 15:46 Temperature Temperature Source Pulse Rate 78 71 Pulse Rate [Right] Respiratory Rate 18 18 18 Blood Pressure 180/103 H 198/109 H 195/112 H Blood Pressure [Right Arm] Blood Pressure Mean Blood Pressure Mean [Right Arm] Blood Pressure Source Blood Pressure Source [Right Arm] Blood Pressure Position Blood Pressure Position [Right Arm] 02 Sat by Pulse Oximetry 100 100 100 Oxygen Delivery Method Mechanical Ventilation Mechanical Ventilation Mechanical Ventilation Fraction of Inspired Oxygen 08/13/25 16:30 08/13/25 16:34 08/13/25 16:36 Temperature Temperature Source Pulse Rate 86 71 69 Pulse Rate [Right] Respiratory Rate 16 18 18 Blood Pressure 181/118 H 157/99 H 161/92 H Blood Pressure [Right Arm] Blood Pressure Mean Blood Pressure Mean [Right Arm] Blood Pressure Source Blood Pressure Source [Right Arm] Blood Pressure Position Blood Pressure Position [Right Arm] 02 Sat by Pulse Oximetry 100 100 100 Oxygen Delivery Method Mechanical Ventilation Mechanical Ventilation Mechanical Ventilation Fraction of Inspired Oxygen 08/13/25 16:41 08/13/25 16:46 08/13/25 16:51 Temperature Temperature Source Pulse Rate 73 70 72 Pulse Rate [Right] Respiratory Rate 18 18 18 Blood Pressure 156/95 H 152/90 H 146/91 H Blood Pressure [Right Arm] Blood Pressure Mean Blood Pressure Mean [Right Arm] Blood Pressure Source Blood Pressure Source [Right Arm] Blood Pressure Position Blood Pressure Position [Right Arm] 02 Sat by Pulse Oximetry 100 100 100 Oxygen Delivery Method Mechanical Ventilation Mechanical Ventilation Mechanical Ventilation Fraction of Inspired Oxygen 08/13/25 16:56 08/13/25 17:01 08/13/25 17:06 Temperature Temperature Source Pulse Rate 71 74 72 Pulse Rate [Right] Respiratory Rate 18 18 18 Blood Pressure 148/86 H 164/103 H 154/95 H Blood Pressure [Right Arm] Blood Pressure Mean Blood Pressure Mean [Right Arm] Blood Pressure Source Blood Pressure Source [Right Arm] Blood Pressure Position Blood Pressure Position [Right Arm] 02 Sat by Pulse Oximetry 100 100 100 Oxygen Delivery Method Mechanical Ventilation Mechanical Ventilation Mechanical Ventilation Fraction of Inspired Oxygen 08/13/25 17:11 08/13/25 17:16 08/13/25 17:26 Temperature Temperature Source Pulse Rate 72 71 68 Pulse Rate [Right] Respiratory Rate 18 18 18 Blood Pressure 158/96 H 151/91 H 151/91 H Blood Pressure [Right Arm] Blood Pressure Mean Blood Pressure Mean [Right Arm] Blood Pressure Source Blood Pressure Source [Right Arm] Blood Pressure Position Blood Pressure Position [Right Arm] 02 Sat by Pulse Oximetry 100 100 100 Oxygen Delivery Method Mechanical Ventilation Mechanical Ventilation Mechanical Ventilation Fraction of Inspired Oxygen 08/13/25 17:31 08/13/25 17:36 08/13/25 17:37 Temperature Temperature Source Pulse Rate 69 69 69 Pulse Rate [Right] Respiratory Rate 18 18 18 Blood Pressure 152/92 H 161/101 H 164/97 H Blood Pressure [Right Arm] Blood Pressure Mean Blood Pressure Mean [Right Arm] Blood Pressure Source Blood Pressure Source [Right Arm] Blood Pressure Position Blood Pressure Position [Right Arm] 02 Sat by Pulse Oximetry 100 100 100 Oxygen Delivery Method Mechanical Ventilation Mechanical Ventilation Mechanical Ventilation Fraction of Inspired Oxygen 08/13/25 17:41 08/13/25 17:46 08/13/25 17:51 Temperature Temperature Source Pulse Rate 67 Pulse Rate [Right] Respiratory Rate 18 Blood Pressure 151/92 H 158/90 H 153/92 H Blood Pressure [Right Arm] Blood Pressure Mean 110 110 Blood Pressure Mean [Right Arm] Blood Pressure Source Blood Pressure Source [Right Arm] Blood Pressure Position Blood Pressure Position [Right Arm] 02 Sat by Pulse Oximetry 100 Oxygen Delivery Method Mechanical Ventilation Mechanical Ventilation Mechanical Ventilation Fraction of Inspired Oxygen 08/13/25 17:56 08/13/25 18:01 08/13/25 18:06 Temperature Temperature Source Pulse Rate Pulse Rate [Right] Respiratory Rate Blood Pressure 157/95 H 159/95 H 151/94 H Blood Pressure [Right Arm] Blood Pressure Mean 110 110 106 Blood Pressure Mean [Right Arm] Blood Pressure Source Blood Pressure Source [Right Arm] Blood Pressure Position Blood Pressure Position [Right Arm] 02 Sat by Pulse Oximetry Oxygen Delivery Method Mechanical Ventilation Mechanical Ventilation Mechanical Ventilation Fraction of Inspired Oxygen 08/13/25 18:11 08/13/25 18:16 08/13/25 18:21 Temperature Temperature Source Pulse Rate Pulse Rate [Right] Respiratory Rate Blood Pressure 155/91 H 157/84 H 145/91 H Blood Pressure [Right Arm] Blood Pressure Mean 112 108 114 Blood Pressure Mean [Right Arm] Blood Pressure Source Blood Pressure Source [Right Arm] Blood Pressure Position Blood Pressure Position [Right Arm] 02 Sat by Pulse Oximetry Oxygen Delivery Method Mechanical Ventilation Mechanical Ventilation Mechanical Ventilation Fraction of Inspired Oxygen 08/13/25 18:26 08/13/25 18:31 08/13/25 18:36 Temperature Temperature Source Pulse Rate Pulse Rate [Right] Respiratory Rate Blood Pressure 168/98 H 158/109 H 170/106 H Blood Pressure [Right Arm] Blood Pressure Mean 121 115 125 Blood Pressure Mean [Right Arm] Blood Pressure Source Blood Pressure Source [Right Arm] Blood Pressure Position Blood Pressure Position [Right Arm] 02 Sat by Pulse Oximetry Oxygen Delivery Method Mechanical Ventilation Mechanical Ventilation Mechanical Ventilation Fraction of Inspired Oxygen 08/13/25 18:41 08/13/25 18:46 08/13/25 18:51 Temperature Temperature Source Pulse Rate 71 68 Pulse Rate [Right] Respiratory Rate 18 18 Blood Pressure 174/109 H 164/101 H 171/104 H Blood Pressure [Right Arm] Blood Pressure Mean 117 118 118 Blood Pressure Mean [Right Arm] Blood Pressure Source Blood Pressure Source [Right Arm] Blood Pressure Position Blood Pressure Position [Right Arm] 02 Sat by Pulse Oximetry 100 100 Oxygen Delivery Method Mechanical Ventilation Mechanical Ventilation Mechanical Ventilation Fraction of Inspired Oxygen Lab Data Lab Results 08/13/25 11:57: Urine Color Yellow, Urine Appearance Clear, Urine pH 6.0, Ur Specific [place] 1.015, Urine Protein Negative, Urine Glucose (UA) Negative, Urine Ketones Negative, Urine Blood Negative, Urine Nitrate Negative, Urine Bilirubin Negative, Urine Urobilinogen 0.2, Ur Leukocyte Esterase Negative, Urine RBC None, Urine WBC 3-5, Ur Squamous Epith Cells 5-10, Urine Bacteria 1+, Urine HCG, Qual Negative, Urine Opiates Screen Negative, Urine Methadone Screen Negative, Ur Barbituates Screen Negative, Ur Phencyclidine Scrn Negative, Ur Amphetamines Screen Negative, U Benzodiazepines Scrn Negative, Urine Cocaine Screen Negative, U Marijuana (THC) Screen Negative 08/13/25 12:19: WBC 8.1, RBC 4.35, Hgb 12.4, Hct 36.8 L, MCV 84.6, MCH 28.5, MCHC 33.7, RDW 12.5, Plt Count 312, MPV 10.8 H, Neut % (Auto) 62.0, Lymph % (Auto) 25.2, [place] % (Auto) 7.9, Eos % (Auto) 4.1, Baso % (Auto) 0.4, Neut # (Auto) 5.0, Lymph # (Auto) 2.1, [place] # (Auto) 0.6, Eos # (Auto) 0.3, Baso # (Auto) 0.0, PT 10.9, INR 0.98, APTT 25.5, D-Dimer 0.52 H, Sodium 140, Potassium 3.9, Chloride 103, Carbon Dioxide 30, Anion Gap 10.9, BUN 12, Creatinine 0.80, Estimated Creat Clear 82, Estimated GFR 78, Est GFR ( Amer) 95, Glucose 64 L, Calcium 9.0, Magnesium 1.9 08/13/25 12:19: Magnesium 1.9, Total Bilirubin 1.0, AST 24, ALT 18, Alkaline Phosphatase 105, Troponin I < 0.01, Total Protein 6.4 D, Albumin 3.8, Globulin 2.6, Albumin/Globulin Ratio 1.5, Lipase 57 08/13/25 12:19: Lipase 54, TSH 4.19, Free T4 0.96, Salicylates < 1.0 L, Acetaminophen < 10 L, Plasma/Serum Alcohol < 10 08/13/25 13:06: POC Glucose 109 08/13/25 14:29: POC Glucose 109 08/13/25 15:39: Specimen Source Left radial, O2 % 100, ABG pH 7.40, ABG pCO2 42.6, ABG pO2 158.1 H, ABG HCO3 26.0, ABG Total CO2 27.3 H, ABG O2 Saturation 99, ABG Base Excess 1.3, Mir Test Patient unable, Vent Rate 18, Tidal Volume 440, PEEP 5 08/13/25 18:58: Troponin I < 0.01 08/13/25 19:50: VBG pH 7.38, VBG pCO2 40.4, VBG pO2 34.5, VBG HCO3 23.5, VBG Total CO2 24.7, VBG O2 Saturation 66.0, VBG Base Excess -1.6, VBG Lactic Acid 1.6 Orders (Tests/Meds): ED MEDICATIONS Generic Name Dose Route Start Last Admin Trade Name Freq PRN Reason Stop Dose Admin Propofol 100 mls @ 7.62 mls/hr 08/13/25 14:50 08/13/25 18:22 Diprivan 10mg/Ml 100ml Bottle IV 09/12/25 14:49 70 mcg/kg/min .Q13H8M ERINN 53.34 mls/hr Protocol Titration 10 MCG/KG/MIN Fentanyl Citrate 1,000 mcg/ 100 mls @ 1 mls/hr 08/13/25 14:51 08/13/25 18:20 Sodium Chloride IV 09/12/25 14:50 10 mcg/hr .Q24H ERINN 1 mls/hr Protocol Administration 10 MCG/HR Sodium Chloride 10 ml 08/13/25 15:56 08/13/25 16:03 Sodium Chloride 0.9% 10ml Syr (Rad Only) IV 09/12/25 15:55 10 ml NEEDED PRN Administration Maintain IV Site Discontinued Medications Generic Name Dose Route Start Last Admin Trade Name Freq PRN Reason Stop Dose Admin Acetaminophen 1,000 mg 08/13/25 11:59 08/13/25 12:22 Acetaminophen 1,000mg/100ml Vial IV 08/13/25 12:00 1,000 mg ONCE ONE Administration Atropine Sulfate 0.5 mg 08/13/25 15:29 08/13/25 15:39 Atropine 1mg/10ml Syringe (Crash Cart) IV 08/13/25 15:30 0.5 mg ONCE ONE Administration Etomidate 20 mg 08/13/25 14:44 08/13/25 14:44 Etomidate 40mg/20ml Vial IV 08/13/25 14:45 20 mg ONCE ONE Administration Sodium Chloride 1,000 mls @ 999 mls/hr 08/13/25 11:59 08/13/25 15:08 Sod Chlor 0.9% 1000ml Bag IV 08/13/25 12:59 Infused .Q1H1M ONE Infusion Levetiracetam 4,500 mg/ Sodium 145 mls @ 290 mls/hr 08/13/25 15:28 08/13/25 17:08 Chloride IV 08/13/25 15:29 Infused ONCE ONE Infusion Iopamidol 75 ml 08/13/25 12:27 08/13/25 12:28 Iopamidol-370 (76%);100ml Bottle IV 08/13/25 12:28 75 ml ONCE ONE Administration Iopamidol 160 ml 08/13/25 15:56 08/13/25 16:03 Iopamidol-370 (76%);100ml Bottle IV 08/13/25 15:57 120 ml ONCE ONE Administration Ketorolac Tromethamine 30 mg 08/13/25 11:59 08/13/25 12:21 Ketorolac 30mg/Ml Vial IV 08/13/25 12:00 30 mg ONCE ONE Administration Midazolam HCl 2 mg 08/13/25 15:58 08/13/25 15:59 Midazolam 2mg/2ml Vial IV 08/13/25 15:59 2 mg ONCE ONE Administration Ondansetron HCl 4 mg 08/13/25 12:02 08/13/25 12:20 Ondansetron 4mg/2ml Vial IV 08/13/25 12:03 4 mg ONCE ONE Administration Rocuronium Sylvester 100 mg 08/13/25 14:44 08/13/25 14:44 Rocuronium Sylvester 50mg/5ml Vial IV 08/13/25 14:45 100 mg ONCE ONE Administration Sodium Chloride 50 ml 08/13/25 12:27 08/13/25 12:28 0.9 % Sodium Chloride 50 Ml Vial IV 08/13/25 12:28 50 ml ONCE ONE Administration Sodium Chloride 10 ml 08/13/25 12:27 08/13/25 12:28 Sodium Chloride 0.9% 10ml Syr (Rad Only) IV 08/13/25 12:28 10 ml ONCE ONE Administration Sodium Chloride 100 ml 08/13/25 15:56 08/13/25 16:01 0.9 % Sodium Chloride 50 Ml Vial IV 08/13/25 15:57 100 ml ONCE ONE Administration ORDERS Category Date Time Status CT abdomen pelvis w con Stat Cat Scan 08/13/25 11:[address] angio abdomen pelvis Stat Cat Scan 08/13/25 14:[address] angio chest - dissection Stat Cat Scan 08/13/25 14:[address] angio head Stat Cat Scan 08/13/25 14:[address] angio neck Stat Cat Scan 08/13/25 14:[address] head/brain wo con Stat Cat Scan 08/13/25 14:50 Completed Chest XR -- portable [XR chest portable] Stat Exams 08/13/25 18:38 Completed Acetaminophen Stat Lab 08/13/25 12:19 Completed CBC w/Auto Diff [Complete Blood Count Auto Diff] Stat Lab 08/13/25 12:19 Completed Comprehensive Metabolic Panel Stat Lab 08/13/25 12:19 Completed D-Dimer Stat Lab 08/13/25 12:19 Completed Drug Screen,Urine Stat Lab 08/13/25 11:57 Completed Ethanol [Ethyl Alcohol] Stat Lab 08/13/25 12:19 Completed Free T4 (Free Thyroxine) Stat Lab 08/13/25 12:19 Completed Lipase Stat Lab 08/13/25 12:19 Completed Lipase Stat Lab 08/13/25 12:19 Completed MG [Magnesium] Stat Lab 08/13/25 12:19 Completed Magnesium Stat Lab 08/13/25 12:19 Completed POC Glucose,Bedside Routine Lab 08/13/25 13:06 Completed POC Glucose,Bedside Routine Lab 08/13/25 14:29 Completed PT INR [Prothrombin Time INR] Stat Lab 08/13/25 12:19 Completed PTT [Activated Partial Thrombo Time] Stat Lab 08/13/25 12:19 Completed Salicylate Stat Lab 08/13/25 12:19 Completed TSH [Thyroid Stimulating Hormone] Stat Lab 08/13/25 12:19 Completed Trop I [Troponin I] Stat Lab 08/13/25 12:19 Completed Troponin I Q3H Lab 08/13/25 18:58 Completed Troponin I Q3H Lab 08/13/25 21:15 Ordered Urinalysis and Microscopic Stat Lab 08/13/25 11:57 Completed Urine , HCG Qual. Stat Lab 08/13/25 11:57 Completed VBG PH Stat Lab 08/13/25 14:52 Ordered Sputum Culture & Gram Stain Stat Micro 08/13/25 14:54 Results ABG [Arterial Blood Gas] Stat RT 08/13/25 15:39 Results VBG [Venous Blood Gas] Stat RT 08/13/25 19:50 Completed ECG Data Tracing #1: I reviewed this ECG and interpreted as documented below: EKG personally interpreted by me demonstrates normal sinus rhythm at a rate of 91 bpm, normal axis, no HI prolongation, narrow QRS, no QTc prolongation. No ST elevation or depression. No overt signs of ischemia or Medical Decision Narrative: patient is a 45-year-old female presenting to the emergency department for evaluation of dark urine, right lower quadrant pain. Patient is hemodynamically stable and nontoxic-appearing upon arrival, afebrile. Differential diagnosis includes kidney stone, UTI, among others. Workup will be conducted with hematologic labs, specific imaging. Initial inventions include crystalloid bolus, analgesics. Patient with normal white count 8.1, glucose did go to 64 so we gave patient Coke and crackers. Normal urine. I checked on patient and she said she needed to use the restroom, and she felt like she might vomit. She says she sweaty and she needed help to the bathroom. I asked Carlos to help her go to the bathroom and he did. Patient became unresponsive at that time. Dr. Ozuna evaluated patient at that time. Arnaud Ozuna MD: I was consulted by the CLEMENTE, and we discussed the complexity of the problems being addressed. I approved the treatment and management plan for this patient's care in the emergency department, thus performing a substantive portion of the medical decision making. Hematologic labs thus far reviewed by me no significant leukocytosis no transfusable anemia no BRUNA or critical electrolyte abnormality, no coagulopathy. Lipase normal. Urinalysis interpreted by me and not consistent with infection. CT imaging abdomen pelvis no acute pathology. Patient has right lower quadrant abdominal pain has previous hysterectomy ovaries are not large on CT scan torsion is unlikely. Patient became diaphoretic and unresponsive with eyes veered towards the right for approximately 10 minutes. Patient did not have any generalized tonic-clonic movement. There was bilateral eye twitching at the time. Pupils were equally round and reactive to light. Profuse diaphoresis. Maintaining oxygenation. For airway protection patient underwent rapid sequence intubation with etomidate and rocuronium. Differential diagnosis includes subclinical status, toxic, among others. Prior to intubation patient's eyes approached midline. Patient was intubated without complication. Workup will be broadened with additional hematologic labs, ingestions drug abuse noncontrasted CT scan of the head CTA of the head neck chest abdomen and pelvis. Upon transfer of care to Dr. Mascorro he reviewed patient's medication list she is on bethanechol. Bethanechol toxicity could explain her diaphoresis, salivation, lower abdominal pain. Propofol drip initiated at transfer of care. Transfer of care Bret Mascorro DO This patient arrived to the emergency department complaining of right lower quadrant abdominal pain. She was worked up with hematologic labs as well as a CT scan of the abdomen and pelvis and workup was unremarkable. At the time of discharge she was found to be unresponsive, profoundly diaphoretic, and experiencing hypersalivation. This ultimately led to intubation for airway protection. When I assumed care of this patient I performed a thorough chart review as well as medication reconciliation. It seems that the patient was worked up in the past at the [facility] for cauda equina syndrome and was experiencing related bladder dysfunction for which she was prescribed bethanechol. The last time this medication was dispensed was in May and she was administered 90 tablets of 25 mg of bethanechol to be taken 3 times daily as needed. On my evaluation of the patient she was experiencing excessive lacrimation with pooling of tears covering the entirety of her eyes. She had no gaze deviation. She had no seizure-like activity. She additionally was having hypersalivation with a pool of saliva forming in her mouth and soaking the entirety of her face and neck. Bethanechol causes a classic muscarinic toxicity but does not cross the blood-brain barrier so I would not expect any pupillary disturbances. Her pupils are 2+ and reactive which would fit with bethanechol overdose especially in the setting, of a relatively low heart rate in the 70s, hypersalivation, and hyperlacrimation. Therefore I decided to administer 0.5 mg of atropine to the patient. This did help significantly with her hyperlacrimation and hypersalivation. Interestingly, her heart rate did not increase which could suggest that she does have a muscarinic agent in her system that is competing with atropine. I have had an interactive discussion with the [facility] who agreed with our assessment and felt that this constellation of symptoms could certainly be seen in the setting of bethanechol overdose. They agree with our management thus far and do not have any further recommendations. They state that if she does begin experiencing seizures we should treat her aggressively with benzodiazepines We proceeded with full body CT scans that were essentially normal. While the patient was in the emergency department she did have a seizure that was characterized by twitching like movements of the face and the neck. She was treated with Versed and this seizure-like activity stopped. She required increasing doses of propofol to maintain adequate sedation. She is currently on a fentanyl drip as well as 70 mcg/kg/min of propofol to maintain sedation. I do feel that she will necessitate EEG monitoring for seizure activity as well as further workup of potential bethanechol overdose. I have had an interactive discussion with the [facility] transfer center. Dr. Gonsalez has graciously agreed to accept the patient as a direct admission to the ICU. Patient was transferred via helicopter ambulance in critical condition. Procedures <Arnaud Ozuna MD - Last Filed: 08/13/25 15:41> Intubation Mallampati Score:: Class II sedative: Etomidate Mg Given: 20 paralytic: Rocuronium Mg Given: 100 Laryngoscope: Robyn Assist Device Used: other ET Tube Size: 7.5 Tube Secured Depth (cm): 20 Tube Secured Location: teeth Tube Placement Confirmation: visualized tube passing through cords, equal breath sounds bilaterally, no breath sounds over epigastrium and confirmation by capnometry Patient Tolerated Procedure: well Intubation Complications: none Critical Care <Arnaud Ozuna MD - Last Filed: 08/13/25 15:41> Critical Care Time Critical Care Time: No <Bret Mascorro DO - Last Filed: 08/13/25 20:56> Critical Care Time Critical Care Time: Yes Attestation: On 08/13/25, the high probability of a clinically significant, sudden or life threatening deterioration of the following system(s) required my full and direct attention, intervention and personal management. The time I documented below is in addition to time spent performing reported procedures but includes the following listed in this critical care notation. Total Time Total Critical Care Time: 74
[2025-08-13 12:03] LABS: Microscopic, Urine URINE MICROSCOPIC (MICROSCOPIC)
[2025-08-13] MEDS: ONDANSETRON 4MG/2ML VIAL 4 MG IV (12:20)
[2025-08-13] MEDS: KETOROLAC 30MG/ML VIAL 30 MG IV (12:21)
[2025-08-13] MEDS: 0.9 % SODIUM CHLORIDE 1000ML 1,000 ML 999 ML IV (12:22)
[2025-08-13] MEDS: ACETAMINOPHEN 1,000MG/100ML VIAL 1000 MG IV (12:22)
[2025-08-13 12:27] LABS: Hematocrit 36.8 % (37.0-47.0); Hemoglobin 12.4 g/dL (12.2-16.2); Immature Granulocytes % 0.4 %; Mean Corpuscular HGB Conc 33.7 g/dL (31.8-35.4); Mean Corpuscular Hemoglobin 28.5 pg (27.0-31.2); Mean Corpuscular Volume 84.6 fl (81-99); Nucleated Red Blood Cells % 0 %; Platelet Count 312 K/mm3 (142-424); Red Blood Count 4.35 M/mm3 (4.20-5.40); Red Cell Distribution Width-SD 37.8 fL; White Blood Count 8.1 K/mm3 (4.8-10.8)
[2025-08-13] MEDS: SODIUM CHLORIDE 0.9% 10ML SYR (RAD ONLY) 10 ML IV ×2 (12:28→16:03)
[2025-08-13] MEDS: IOPAMIDOL-370 (76%);100ML BOTTLE 75 ML IV (12:28)
[2025-08-13] MEDS: 0.9 % SODIUM CHLORIDE 50 ML VIAL IV (12:28)
[2025-08-13 12:31] LABS: Bilirubin,Urine Negative (Negative); Color,Urine YELLOW (Yellow); Glucose,Urine (UA) Negative (Negative); Ketones,Urine Negative (Negative); Leukocyte Esterase,Urine Negative (Negative); PH,Urine 6.0 (5.0-8.5); Protein,Urine Negative (Negative); Specific Gravity, Urine 1.015 (1.005-1.030); Urobilinogen,Urine 0.2 EU/dl (0.2)
[2025-08-13 12:33] LABS: Urine Pregnancy, HCG Qual. Negative (Negative)
[2025-08-13 12:44] LABS: Lipase 57 U/L (23-300); Magnesium 1.9 mg/dl (1.6-2.3)
[2025-08-13 12:45] LABS: Alanine Aminotransferase 18 U/L (12-78); Albumin Level 3.8 g/dl (3.5-5.0); Albumin/Globulin Ratio 1.5 (1.1-1.8); Alkaline Phosphatase 105 U/L (38-126); Anion Gap 10.9 mEq/L (5-15); Aspartate Amino Transferase 24 U/L (14-36); Bilirubin,Total 1.0 mg/dl (0.2-1.3); Blood Urea Nitrogen 12 mg/dl (7-17); Calcium 9.0 mg/dl (8.4-10.2); Carbon Dioxide 30 mmol/L (22.0-30.0); Chloride 103 mmol/L (98-107); Creatinine Clearance Estimated 82 mL/min (50-200); Creatinine,Serum 0.80 mg/dl (0.52-1.04); Estimated Glomerular Filt Rate 78 ml/min (>60); GFR (African American) 95 ML/MIN (>60); Globulin 2.6 g/dL (1.3-3.2); Glucose 64 mg/dl (74-100); Potassium 3.9 mmoL/L (3.5-5.1); Sodium 140 mmol/L (136-145); Total Protein,Serum 6.4 g/dl (6.3-8.2)
[2025-08-13 13:02] LABS: Bacteria,Urine 1+ /lpf
--- NOTE | 2025-08-13 13:07 | PC.NURSE ---
repeat bgl 109
[2025-08-13 13:13] LABS: POC Glucose,Bedside 109 gm/dL (70-110)
[2025-08-13 14:35] LABS: POC Glucose,Bedside 109 gm/dL (70-110)
--- NOTE | 2025-08-13 14:39 | PC.NURSE ---
Pt was in room 12. Ultrasound came down to get her and the tech reported to me that pt wasnt acting right. Went and check on the pt. Pt was sweating all over and basically out of it. Sternal rubbed pt several times with no response and immediately went and got Dr Ozuna and the nurse. Pt was moved from chair to a bed and placed in room 7. FSBS was checked right before we moved her and it was 109.
[2025-08-13] MEDS: ROCURONIUM BROMIDE 50MG/5ML VIAL 100 MG IV (14:44)
[2025-08-13] MEDS: ETOMIDATE 40MG/20ML VIAL 20 MG IV (14:44)
--- NOTE | 2025-08-13 14:50 | CT_ITS ---
PROCEDURE INFORMATION: Exam: CT Head Without Contrast Exam date and time: 08/13/2025 3:53 PM Age: 45 years old Clinical indication: Other: Sweating, unresponsive TECHNIQUE: Imaging protocol: Computed tomography of the head without contrast. Radiation optimization: All CT scans at this facility use at least one of these dose optimization techniques: automated exposure control; mA and/or kV adjustment per patient size (includes targeted exams where dose is matched to clinical indication); or iterative reconstruction. COMPARISON: CT ANGIO HEAD 10/17/2024 4:30 PM FINDINGS: Tubes, catheters and devices: Endotracheal tube is present, incompletely visualized. Brain: No acute intracranial hemorrhage. No midline shift or significant intracranial mass effect. Cerebral ventricles: No hydrocephalus. Paranasal sinuses: Mild paranasal sinus disease. Mastoid air cells: Visualized mastoid air cells are well aerated. Bones: Unremarkable. No acute fracture. Soft tissues: Unremarkable. IMPRESSION: No acute intracranial abnormality.
--- NOTE | 2025-08-13 14:50 | CT_ITS ---
PROCEDURE INFORMATION: Exam: CTA Neck With Contrast Exam date and time: 08/13/2025 4:09 PM Age: 45 years old Clinical indication: Other: Sweating, unresponsive TECHNIQUE: Imaging protocol: Computed tomographic angiography of the neck with contrast. Exam focused on the cervical segments of the vasculature. 3D rendering (Not supervised by radiologist): MIP and/or 3D reconstructed images were created by the technologist. Radiation optimization: All CT scans at this facility use at least one of these dose optimization techniques: automated exposure control; mA and/or kV adjustment per patient size (includes targeted exams where dose is matched to clinical indication); or iterative reconstruction. Contrast material: ISO; Contrast volume: 60 ml; Contrast route: INTRAVENOUS (IV); COMPARISON: CT ANGIO NECK 10/17/2024 4:30 PM FINDINGS: Tubes, catheters and devices: Endotracheal tube is present. Right common carotid artery: No stenosis. No dissection or occlusion. Right internal carotid artery: No stenosis of the extracranial segment. No dissection or occlusion. Right external carotid artery: No occlusion or stenosis of the origin. Left common carotid artery: No stenosis. No dissection or occlusion. Left internal carotid artery: No stenosis of the extracranial segment. No dissection or occlusion. Left external carotid artery: No occlusion or stenosis of the origin. Right vertebral artery: Right vertebral artery is dominant. Left vertebral artery: No stenosis. No dissection or occlusion. Soft tissues: Normal. No significant soft tissue swelling. Bones/joints: No acute fracture. Other findings: Chest is better evaluated on dedicated exam. IMPRESSION: No significant stenosis or dissection. REFERENCES: NASCET CRITERIA. The degree of stenosis in the cervical segment of the internal carotid artery is based on NASCET criteria. Normal is no stenosis. Mild is less than 50% stenosis. Moderate is 50-69% stenosis. Severe is 70% to 99% stenosis. Total occlusion is no detectable patent lumen.
--- NOTE | 2025-08-13 14:50 | CT_ITS ---
PROCEDURE INFORMATION: Exam: CTA Chest With Contrast Exam date and time: 08/13/2025 4:12 PM Age: 45 years old Clinical indication: Other: Sweating, unresponsive TECHNIQUE: Imaging protocol: Computed tomographic angiography of the chest with contrast. Exam focused on the arteries. 3D rendering (Not supervised by radiologist): MIP and/or 3D reconstructed images were created by the technologist. Radiation optimization: All CT scans at this facility use at least one of these dose optimization techniques: automated exposure control; mA and/or kV adjustment per patient size (includes targeted exams where dose is matched to clinical indication); or iterative reconstruction. Contrast material: ISO 370; Contrast volume: 60 ml; Contrast route: INTRAVENOUS (IV); COMPARISON: CT ANGIO CHEST 10/17/2024 4:34 PM FINDINGS: Tubes, catheters and devices: Endotracheal tube terminates 2 cm above the damon. Pulmonary arteries: With the above limitation noted, no definite pulmonary emboli are identified. Aorta: Unremarkable. No aortic aneurysm. No aortic dissection. Lungs: Hypoinflation with prominent vascular crowding and atelectasis within the lung bases slightly decreases the sensitivity for detection of peripheral basilar pulmonary emboli. Prominent bibasilar atelectasis without definite acute infiltrate. Pleural spaces: Unremarkable. No pneumothorax. No pleural effusion. Heart: Mild 4 chamber cardiac enlargement. Lymph nodes: Unremarkable. No enlarged lymph nodes. Bones/joints: Unremarkable. No acute fracture. Soft tissues: Unremarkable. IMPRESSION: 1. Hypoinflation with prominent vascular crowding and atelectasis within the lung bases slightly decreases the sensitivity for detection of peripheral basilar pulmonary emboli. With the above limitation noted, no definite pulmonary emboli are identified. 2. Mild 4 chamber cardiac enlargement. 3. Prominent bibasilar atelectasis without definite acute infiltrate.
--- NOTE | 2025-08-13 14:50 | CT_ITS ---
PROCEDURE INFORMATION: Exam: CTA Head With Contrast, Arteriography Exam date and time: 08/13/2025 4:09 PM Age: 45 years old Clinical indication: Other: Sweating, unresponsive TECHNIQUE: Imaging protocol: Computed tomographic angiography of the head with contrast. Exam focused on the arteries. 3D rendering (Not supervised by radiologist): MIP and/or 3D reconstructed images were created by the technologist. Radiation optimization: All CT scans at this facility use at least one of these dose optimization techniques: automated exposure control; mA and/or kV adjustment per patient size (includes targeted exams where dose is matched to clinical indication); or iterative reconstruction. Contrast material: ISO 370; Contrast volume: 60 ml; Contrast route: INTRAVENOUS (IV); COMPARISON: CT ANGIO HEAD 10/17/2024 4:30 PM FINDINGS: ANTERIOR CIRCULATION: Right internal carotid artery: Intracranial segment is patent with no significant stenosis. No aneurysm. Right middle cerebral artery: No occlusion or significant stenosis. No aneurysm. Right anterior cerebral artery: No occlusion or significant stenosis. No aneurysm. Left internal carotid artery: Intracranial segment is patent with no significant stenosis. No aneurysm. Left middle cerebral artery: No occlusion or significant stenosis. No aneurysm. Left anterior cerebral artery: No occlusion or significant stenosis. No aneurysm. POSTERIOR CIRCULATION: Right vertebral artery: Right vertebral artery is dominant. Left vertebral artery: No occlusion or significant stenosis. No aneurysm. Basilar artery: No occlusion or significant stenosis. No aneurysm. Right posterior cerebral artery: Carotid dominant right posterior cerebral artery with hypoplastic P1 segment. Left posterior cerebral artery: Carotid dominant left posterior cerebral artery with hypoplastic P1 segment. Brain: No definite mass, mass effect, or midline shift. Cerebral ventricles: No ventriculomegaly. Bones/joints: Unremarkable. No acute fracture. Soft tissues: Unremarkable. IMPRESSION: No hemodynamically significant stenosis or large vessel occlusion.
--- NOTE | 2025-08-13 14:50 | CT_ITS ---
PROCEDURE INFORMATION: Exam: CTA Abdomen and Pelvis Without And With Contrast Exam date and time: 08/13/2025 4:12 PM Age: 45 years old Clinical indication: Other: Sweating, unresponsive TECHNIQUE: Imaging protocol: Computed tomographic angiography of the abdomen and pelvis without and with contrast. Exam focused on the arteries. 3D rendering (Not supervised by radiologist): MIP and/or 3D reconstructed images were created by the technologist. Radiation optimization: All CT scans at this facility use at least one of these dose optimization techniques: automated exposure control; mA and/or kV adjustment per patient size (includes targeted exams where dose is matched to clinical indication); or iterative reconstruction. Contrast material: ISOVUE; Contrast volume: 75 ml; Contrast route: INTRAVENOUS (IV); COMPARISON: CT ANGIO ABDOMEN PELVIS 10/17/2024 4:34 PM FINDINGS: Tubes, catheters and devices: Ruiz catheter is present. Aorta: No aortic aneurysm. No aortic dissection. Celiac and mesenteric arteries: No occlusion or significant stenosis. Renal arteries: No occlusion or significant stenosis. Right iliac arteries: No occlusion or significant stenosis. Left iliac arteries: No occlusion or significant stenosis. Liver: The liver appears within normal limits. Gallbladder and biliary ducts: There has been a cholecystectomy. Pancreas: The pancreas is normal. Spleen: The spleen is normal. Adrenal glands: The adrenal glands appear within normal limits. Kidneys and ureters: The kidneys are normal. Stomach and bowel: Status post gastric bypass. Mild retained fluid within the colon nonspecific but can be seen clinically with diarrhea. No bowel wall inflammatory change identified. Appendix: No evidence of appendicitis. Intraperitoneal space: Unremarkable. No free air. No significant fluid collection. Lymph nodes: Unremarkable. No enlarged lymph nodes. Urinary bladder: Bladder is otherwise normal. There is a small amount of intraluminal air consistent with instrumentation. Reproductive: Unremarkable as visualized. Bones/joints: No acute fracture. Soft tissues: Unremarkable. IMPRESSION: 1. Mild retained fluid within the colon nonspecific but can be seen clinically with diarrhea. No bowel wall inflammatory change identified. 2. The remainder of the examination is unremarkable.
--- NOTE | 2025-08-13 14:59 | ECG_ITS ---
APPROVED REPORT Exam: Resting ECG HR:91 bpm ECG Measurements Heart Rate 91 AXES SD 168 P 61 QRSd 91 QRS 74 QT 369 T 38 QTc 418 Conclusion SINUS RHYTHM NORMAL ECG Electronically signed by : CYNDEE PETERSON, 08/13/2025 16:15:26
[2025-08-13 15:06] LABS: Magnesium 1.9 mg/dl (1.6-2.3)
[2025-08-13 15:18] LABS: Amphetamine/Metha Screen,Urine Negative ng/ml (<1000)
[2025-08-13 15:19] LABS: Barbiturates Screen,Urine Negative ng/ml (<200)
[2025-08-13 15:20] LABS: Benzodiazepines Screen,Urine Negative ng/ml (<200)
[2025-08-13 15:22] LABS: Methadone Screen,Urine Negative ng/ml (<300); Opiate Screen,Urine Negative ng/ml (<300)
[2025-08-13 15:23] LABS: Phencyclidine Screen,Urine Negative ng/ml (<25)
[2025-08-13 15:24] LABS: Free T4 (Free Thyroxine) 0.96 ng/dl (0.78-2.19)
[2025-08-13 15:25] LABS: Lipase 54 U/L (23-300)
[2025-08-13 15:30] LABS: INR 0.98 (0.9-1.1); Prothrombin Time 10.9 seconds (10.1-12.5)
[2025-08-13 15:36] LABS: Activated Partial Thrombo Time 25.5 seconds (22.8-30.6)
[2025-08-13 15:38] LABS: Thyroid Stimulating Hormone 4.19 uIU/mL (0.465-4.68)
[2025-08-13] MEDS: ATROPINE 1MG/10ML SYRINGE (CRASH CART) 0.5 MG IV (15:39)
[2025-08-13 15:42] LABS: ABG HCO3 26.0 mmhg (22.0-26.0); ABG PCO2 42.6 mmhg (35.0-45.0); ABG PH 7.40 mmol/L (7.35-7.45); ABG PO2 158.1 mmhg (80-100); ABG TCO2 27.3 mmhg (23-27); PEEP 5
[2025-08-13 15:43] LABS: Troponin I < 0.01 ng/ml (0.00-0.034)
[2025-08-13 15:43] LABS: Source Left Radial
[2025-08-13] MEDS: levETIRAcetam 4,500 MG in 0.9 % SODIUM CHLORIDE 100 ML 290 MG IV (15:47)
[2025-08-13 15:53] LABS: Acetaminophen < 10 ug/ml (10-30); Salicylate < 1.0 mg/dL (2.0-20.0)
[2025-08-13] MEDS: MIDAZOLAM 2MG/2ML VIAL 2 MG IV (15:59)
[2025-08-13] MEDS: 0.9 % SODIUM CHLORIDE 50 ML VIAL 100 ML IV (16:01)
[2025-08-13] MEDS: IOPAMIDOL-370 (76%);100ML BOTTLE 160 ML IV (16:03)
--- NOTE | 2025-08-13 16:05 | PC.NURSE ---
Addendum entered by Courtney Damon RN 08/13/25 16:36: 15:21- Propofol started at 7.87 mcg/kg/min per protocol based on pts weight. Addendum entered by Courtney Damon RN 08/13/25 16:21: 15:21- Propofol started at 6 mcg/kg/min per protocol based on pts weight. Original Note: 14:43- pt's glucose checked by ZHANG Addison. Glucose 111. 14:44- Etomidate 20 mg IV given and flushed per MD order. 14:44- Rocuronium [place] 100mg IV given and flushed per MD order. 14:46- 7 1/2 ET tube placed at 21cm at the teeth. 14:47- Positive color change per respiratory. Bilateral breath sounds. 14:51- pt placed on ventilator by respiratory. 14:52- Second IV placed by ZHANG Addison. 20g Right forearm. 14:59- EKG performed. 15:10- Ruiz catheter placed. 15:21- Propofol started at 7.87 mcg/kg/min per protocol based on pts weight.
[2025-08-13 16:16] LABS: D-Dimer 0.52 ug/mL (0.0-0.5)
--- NOTE | 2025-08-13 16:16 | PC.NURSE ---
pt back to room from CT.
--- NOTE | 2025-08-13 16:20 | PC.NURSE ---
[facility] CONTACTED AT THIS TIME, IMAGES POWERSHARED TO [facility]
--- NOTE | 2025-08-13 16:24 | PC.NURSE ---
o/p with at this time
--- NOTE | 2025-08-13 16:27 | PC.NURSE ---
DR PETERSON SPEAKING WITH [facility] DR HAILE SPEAKING WITH PT'S FAMILY
--- NOTE | 2025-08-13 16:41 | PC.NURSE ---
call made to [facility] for pt transport will call back with acceptance
[2025-08-13] MEDS: FENTANYL CITRATE/PF 1,000 MCG in 0.9 % SODIUM CHLORIDE 80 ML 1 MCG IV (18:20)
--- NOTE | 2025-08-13 18:35 | PC.NURSE ---
Addendum entered by Donald England, ELAINE 08/13/25 18:38: Phone Number is [phone] Original Note: Lee Elkins called and asked for an update. Asked that we call him when she was going to get transferred to [facility]
--- NOTE | 2025-08-13 18:38 | XR_ITS ---
PROCEDURE INFORMATION: Exam: XR Chest Exam date and time: 08/13/2025 6:40 PM Age: 45 years old Clinical indication: Device placement; Other: Verify tube placement TECHNIQUE: Imaging protocol: Radiologic exam of the chest. Views: 1 view. COMPARISON: CT ANGIO CHEST 08/13/2025 4:12 PM FINDINGS: Tubes, catheters and devices: Endotracheal tube terminates 3 cm above the damon. Nasogastric tube identified with tip projecting over the body of the stomach. Lungs: Focal discoid atelectasis left mid lung zone with mild bibasilar atelectasis. Pleural spaces: Unremarkable. No pleural effusion. No pneumothorax. Heart/Mediastinum: Unremarkable. No cardiomegaly. Bones/joints: Unremarkable. IMPRESSION: 1. Nasogastric tube identified with tip projecting over the body of the stomach. 2. Focal discoid atelectasis left mid lung zone with mild bibasilar atelectasis. 3. Endotracheal tube in good position.
[2025-08-13 19:28] LABS: Troponin I < 0.01 ng/ml (0.00-0.034)
[2025-08-13 19:55] LABS: Lactate Venous 1.6 mmol/L (0.4-2.0); VBG HCO3 23.5 mmol/L (23-30); VBG PCO2 40.4 mmol/L (35-51); VBG PH 7.38 mmol/L (7.31-7.41); VBG PO2 34.5 mmol/L (28-40)
--- NOTE | 2025-08-13 20:00 | PC.NURSE ---
Called [facility] for an update on transfer.
--- NOTE | 2025-08-13 20:24 | PC.NURSE ---
report attempted at 2020, [facility] said they will call back.
--- NOTE | 2025-08-13 20:24 | PC.NURSE ---
[facility] attempted at 2019. [facility] said they will call back.
--- NOTE | 2025-08-13 20:25 | PC.NURSE ---
Report attempted at 2020. [facility] said they will call back.
--- NOTE | 2025-08-13 20:27 | PC.NURSE ---
Spoke with [facility], they will call us back with a helicopter as soon as they find the closest one.
--- NOTE | 2025-08-13 20:30 | PC.NURSE ---
report call ed to cassidy HOLCOMB. at
--- NOTE | 2025-08-13 20:41 | PC.NURSE ---
[facility] just called with a 27 minute ETA for [place].
--- NOTE | 2025-08-15 12:44 | PC.NURSE ---
Pts called looking for the patients hand bag and phone. ER and registration called by myself and neither have these items. I contacted [facility] and [facility]AILA who transported the patient is currently on a flight but when they arrive back they will look for items. This was relayed to the patients . His number is [phone].
--- NOTE | 2025-08-16 14:15 | PC.NURSE ---
The pt called stating has been unable to find her personal belongings. I relayed that we have not located any of her belongings after talking to multiple staff members. She is going to reach out to [facility].
== END 2025-08-13 21:55 | disposition critical access hospital (66) ==
PROVIDERS: Emergency Medicine; Nurse Practitioner; Emergency Provider Student in an Organized Health Care Education/Training Program; PCP Nurse Practitioner Family
DX: T50.901A Poisoning by unspecified drugs, medicaments and biological substances, accidental (unintentional), initial encounter (principal); R10.31 Right lower quadrant pain; R61 Generalized hyperhidrosis; H04.213 Epiphora due to excess lacrimation, bilateral lacrimal glands
CPT/HCPCS: 31500; 36415; 36600; 51702; 70450; 70496; 70498; 71045; 71275; 74174; 74177; 80053; 80307; 80320; 80329; 81001; 81025; 82803; 82962; 83690; 83735; 84439; 84443; 84484; 85025; 85378; 85610; 85730; 87070; 87205; 93005; 96361; 96374; 96375; 99285; 99291; J0131; J0461; J1885; J1953; J2250; J2405; J2704; J3010; J7030; Q9967